=== PATIENT | male | born 1940 | race Caucasian/White ===

== ENCOUNTER 2023-03-05 14:17 | Outpatient (CLI) | payer MEDICARE, SELFPAY ==
[2023-03-05 14:39] LABS: Basophils Percent Auto 0.6 % (0.2-1.2); Eosinophils Absolute Auto 0.3 K/mm3 (0-0.3); Eosinophils Percent Auto 4.2 % (0-4.4); Hematocrit 44.3 % (42.0-52.0); Hemoglobin 14.5 g/dL (14.0-18.0); Immature Granulocyte Absolute 0.02 K/mm3 (0.00-0.031); Immature Granulocyte Percent A 0.3 % (0-0.5); Lymphocytes Absolute Auto 2.01 K/mm3 (0.9-3.2); Lymphocytes Percent Auto 28.1 % (18.3-44.2); Mean Corpuscular HGB Conc 32.7 g/dl (32-36); Mean Corpuscular Hemoglobin 32.7 pg (26-34); Mean Corpuscular Volume 99.8 fl (80-100); Mean Platelet Volume 11.2 fl (7.4-10.4); Monocytes Percent Auto 13.5 % (2.6-8.5); Neutrophils Absolute Auto 3.8 K/mm3 (1.3-6.7); Neutrophils Percent Auto 53.3 % (45.5-73.1); Platelet Count Result 203 k/mm3 (150-375); Red Blood Count 4.44 M/mm3 (4.6-6.20); Red Cell Distribution Width 12.1 % (11.5-14.5); White Blood Count 7.2 K/mm3 (4.5-10.0)
[2023-03-05 16:34] LABS: Alanine Aminotransferase 32 U/L (6-50); Albumin Level 4.9 g/dL (3.5-5.1); Alkaline Phosphatase 100 U/L (38-126); Anion Gap 5 mmol/L (8-16); Aspartate Amino Transferase 39 U/L (17-59); Bilirubin,Total 0.4 mg/dL (0.2-1.3); Blood Urea Nitrogen 19 mg/dL (9-20); Calcium 9.3 mg/dL (8.4-10.2); Carbon Dioxide 32 mmol/L (22-30); Chloride 105 mmol/L (98-107); Estimated Glomerular Filt Rate > 60; Glucose 97 mg/dL (65-110); Potassium 4.9 mmol/L (3.4-5.0); Sodium 142 mmol/L (137-145)
[2023-03-05 17:17] LABS: Prostate Specific Antigen < 0.1 ng/mL (< OR = 4.0)
== END 2023-03-05 14:18 | disposition home or self-care (01) ==
PROVIDERS: PCP Family Medicine Sports Medicine; Visit Provider Internal Medicine Hematology & Oncology
DX: C79.51 Secondary malignant neoplasm of bone (principal)
CPT/HCPCS: 36415; 80053; 84153; 85025

== ENCOUNTER 2023-09-14 08:20 | Outpatient (CLI) | payer MEDICARE, SELFPAY ==
--- NOTE | ~2023-09-14 | CT_ITS ---
Clinical Indication: Metastatic cancer CT Scan of the Chest, Abdomen, and Pelvis with Contrast: Technique: Contiguous sections were acquired throughout the chest, abdomen, and pelvis after intraven ous administration of 100 cc of Omnipaque 350. Dose reduction technique was used on this scan by kristy almeida automated exposure control and iterative reconstruction technique. The dose-length product (DL P) was 792.82 mGy-cm. Findings: There is no evidence of any significant mediastinal, hilar or axillary lymphadenopathy. The mediastin al soft tissues appear normal. There is no evidence of pleural or pericardial effusion. 3 mm left basilar pulmonary nodule noted (axial image 96). No other pulmonary abnormality seen. The liver, spleen, pancreas, gallbladder, adrenals and kidneys are within normal limits. There are at herosclerotic calcifications of the aorta. No lymphadenopathy. No bowel obstruction or bowel wall thickening. There is no evidence to suggest acute appendicitis. Urinary bladder is unremarkable. No pelvic mass evident. No ascites. Impression: 3 mm left basilar pulmonary nodule, indeterminate. Consider follow-up CT in 6-12 months. No other significant findings. No other evidence to suggest active malignancy or metastatic disease. Reviewed, dictated and finalized at location . [facility] Impression: 3 mm left basilar pulmonary nodule, indeterminate. Consider follow-up CT in 6-1 2 months. No other significant findings. No other evidence to suggest active malignancy o r metastatic disease.
[2023-09-14 08:54] LABS: Estimated Glomerular Filt Rate > 60
== END 2023-09-14 08:21 | disposition home or self-care (01) ==
PROVIDERS: PCP Emergency Medicine; Visit Provider Internal Medicine Hematology & Oncology
DX: R91.1 Solitary pulmonary nodule (principal); C79.51 Secondary malignant neoplasm of bone
CPT/HCPCS: 71260; 74177; Q9967

== ENCOUNTER 2024-10-23 01:42 | Emergency (ER) | payer MEDICARE, SELFPAY ==
--- NOTE | ~2024-10-23 | CT_ITS ---
EXAMINATION: CT abdomen pelvis w con DATE: 10/23/2024 03:39 INDICATION: Generalized abdominal pain. TECHNIQUE: Computed tomography (CT) of the abdomen and pelvis was performed with 100 mL Omnipaque 350 intravenous contrast. Automated exposure control and iterative reconstruction technique were employe d. The dose-length product was 559.34 mGy-cm. COMPARISON: CT abdomen and pelvis 09/14/2023 FINDINGS: The visualized portions of the lung bases demonstrate mild atelectasis. There is mild bronc hiectasis bilaterally. No pleural effusion. The heart size is normal. There are coronary artery calci fications. No pericardial effusion. There is a small sliding hiatal hernia. The liver, spleen, pancre as, and adrenal glands are normal. There is a small wall calcification in the gallbladder. There are cysts in the kidneys measuring up to 10 mm on the left. There is a delayed right-sided contrast nephr ogram. There are 1 mm and 2 mm stones in right kidney. There is a 2 mm stone in left kidney. There is mild right hydronephrosis and hydroureter. There is a 3 mm stone at right ureterovesicular junction. There is diverticulosis of the colon without evidence of diverticulitis. There are no dilated loops of bowel. The appendix is not visualized. There is no free intraperitoneal fluid. There are no pathol ogically enlarged lymph nodes. There is severe thoracolumbar spondylosis IMPRESSION: 1. 3 mm stone at right ureterovesicular junction with mild right hydronephrosis and hydroureter. 2. Small bilateral nonobstructing kidney stones. Reviewed, dictated and finalized at location A. E LABORATORY ANALYST
[2024-10-23 02:00] VITALS: BP 130/41; PULSE 53; RESP 15; TEMP 36.3; O2SAT 100
[2024-10-23 02:45] LABS: Basophils Percent Auto 0.3 % (0.2-1.2); Eosinophils Absolute Auto 0.3 K/mm3 (0-0.3); Hemoglobin 12.5 g/dL (14.0-18.0); Immature Granulocyte Absolute 0.03 K/mm3 (0.00-0.031); Immature Granulocyte Percent A 0.3 % (0-0.5); Lymphocytes Absolute Auto 2.63 K/mm3 (0.9-3.2); Lymphocytes Percent Auto 28.3 % (18.3-44.2); Mean Corpuscular HGB Conc 32.9 g/dl (32-36); Mean Corpuscular Hemoglobin 33.2 pg (26-34); Mean Corpuscular Volume 100.8 fl (80-100); Mean Platelet Volume 11.7 fl (7.4-10.4); Monocytes Absolute Auto 0.7 K/mm3 (0.1-0.6); Monocytes Percent Auto 7.8 % (2.6-8.5); Neutrophils Absolute Auto 5.6 K/mm3 (1.3-6.7); Neutrophils Percent Auto 60.3 % (45.5-73.1); Platelet Count Result 203 k/mm3 (150-375); Red Blood Count 3.77 M/mm3 (4.6-6.20); Red Cell Distribution Width 12.8 % (11.5-14.5); White Blood Count 9.3 K/mm3 (4.5-10.0)
--- NOTE | 2024-10-23 02:49 | ED.GENADULT ---
HPI - General Adult General Chief complaint: Abdominal Pain Stated complaint: abdominal pain Time Seen by Provider: 10/23/24 02:39 History of Present Illness HPI narrative: 84 old male presenting emergency department for evaluation for diffuse abdominal pain that started acutely at midnight. Patient states that he feels bloated and has had some nausea and vomiting. Patient did have a bowel movement and that did not improve his symptoms. Patient initially thought he was having some gas pain, he took Gas-X and states that his pain worsened. Related Data Home Medications ?Medication ?Instructions ?Recorded ?Confirmed ?Last Taken ?Type amlodipine 5 mg tablet 2.5 mg PO DAILY 03/23/23 09/20/24 Unknown History coenzyme Q10 200 mg capsule (Co 200 mg PO DAILY 03/23/23 09/20/24 Unknown History Q-10) rosuvastatin 5 mg tablet (Crestor) 5 mg PO DAILY 03/23/23 09/20/24 Unknown History Allergies Allergy/AdvReac Type Severity Reaction Status Date / Time codeine Allergy Nausea Verified 09/20/24 10:39 [facility] Social History Social History Smoking packs per day: 1.5 Smoking cigarettes per day: 30.0 Years smoked: 6 Smoking pack-years: 9.00 Smoking status: Former smoker Tobacco type: cigarettes Spiritual care concerns: No Exam Narrative: APPEARANCE: Well appearing, no pain, no distress, well-nourished. HEAD: normocephalic, atraumatic. EYES: PERRLA/EOMI, conjunctivae clear. NOSE: Normal no drainage EARS:TMS clear with good light reflex. THROAT: Pharynx clear, no exudate. NECK: Supple. No adenopathy, no masses. RESPIRATORY: Airway patent, respirations nonlabored. Clear to auscultation bilaterally, no rales, rhonchi, wheezing. CARDIOVASCULAR: Regular rate and rhythm without murmurs rubs or gallops. ABDOMINAL: Soft, nontender, nondistended, normal bowel sounds MUSCULOSKELETAL: Moves all extremities. Strength/ROM intact, No edema, No calf tenderness. NEURO: Alert. Cranial nerves II through XII intact. Grossly intact SKIN: Warm, dry. Normal Color Course Vital Signs Vital signs: Vital Signs Temperature 97.3 F L 10/23/24 02:00 Pulse Rate 53 L 10/23/24 02:00 Respiratory Rate 15 10/23/24 02:00 Blood Pressure 130/41 L 10/23/24 02:00 Pulse Oximetry 100 10/23/24 02:00 Oxygen Delivery Room Air 10/23/24 02:00 Temperature 97.3 F L 10/23/24 02:00 Pulse Rate 61 10/23/24 06:02 Respiratory Rate 15 10/23/24 06:02 Blood Pressure 100/50 L 10/23/24 06:02 Pulse Oximetry 98 10/23/24 06:02 Oxygen Delivery Room Air 10/23/24 02:00 Medical Decision Making Vital Signs Vital Signs: Vital Signs Temperature 97.3 F L 10/23/24 02:00 Pulse Rate 53 L 10/23/24 02:00 Respiratory Rate 15 10/23/24 02:00 Blood Pressure 130/41 L 10/23/24 02:00 Pulse Oximetry 100 10/23/24 02:00 Oxygen Delivery Room Air 10/23/24 02:00 Temperature 97.3 F L 10/23/24 02:00 Pulse Rate 61 10/23/24 06:02 Respiratory Rate 15 10/23/24 06:02 Blood Pressure 100/50 L 10/23/24 06:02 Pulse Oximetry 98 10/23/24 06:02 Oxygen Delivery Room Air 10/23/24 02:00 Lab Data Lab results reviewed: Yes I reviewed the patient's lab results. 10/23/24 02:40 10/23/24 02:40 Labs: Lab Results 10/23/24 10/23/24 Range/Units 02:40 04:35 WBC 9.3 (4.5-10.0) K/mm3 RBC 3.77 L (4.6-6.20) M/mm3 Hgb 12.5 L (14.0-18.0) g/dL Hct 38.0 L (42.0-52.0) % MCV 100.8 H (80-100) fl MCH 33.2 (26-34) pg MCHC 32.9 (32-36) g/dl RDW 12.8 (11.5-14.5) % Plt Count 203 (150-375) k/mm3 MPV 11.7 H (7.4-10.4) fl Immature Gran % (Auto) 0.3 (0-0.5) % Neut % (Auto) 60.3 (45.5-73.1) % Lymph % (Auto) 28.3 (18.3-44.2) % [place] % (Auto) 7.8 (2.6-8.5) % Eos % (Auto) 3.0 (0-4.4) % Baso % (Auto) 0.3 (0.2-1.2) % Lymph # (Auto) 2.63 (0.9-3.2) K/mm3 [place] # (Auto) 0.7 H (0.1-0.6) K/mm3 Eos # (Auto) 0.3 (0-0.3) K/mm3 Baso # (Auto) 0.0 (0.0-0.1) K/mm3 Abs Immat Gran (auto) 0.03 (0.00-0.031) K/mm3 Absolute Neuts (auto) 5.6 (1.3-6.7) K/mm3 Absolute Nucleated RBC 0.000 (0.0-0.012) K/mm3 Nucleated RBC % 0.0 (0.0-0.2) % Sodium 139 (137-145) mmol/L Potassium 3.9 (3.4-5.0) mmol/L Chloride 110 H (98-107) mmol/L Carbon Dioxide 25 (22-30) mmol/L Anion Gap 4 (4-12) mmol/L BUN 19 (9-20) mg/dL Creatinine 0.80 (0.7-1.3) mg/dL Estim Creat Clear Calc 54 ml/min Estimated GFR > 60 (59 - ) Glucose 139 H (65-110) mg/dL Calcium 9.3 (8.4-10.2) mg/dL Total Bilirubin 0.7 (0.2-1.3) mg/dL AST 31 (17-59) U/L ALT 19 (6-50) U/L Alkaline Phosphatase 91 (38-126) U/L Total Protein 7.0 (6.3-8.2) g/dL Albumin 4.4 (3.5-5.1) g/dL Lipase 231 (23-300) U/L Urine Color Yellow (Yellow) Urine Appearance Clear (Clear) Urine pH 5.5 (5.0-9.0) Ur Specific [place] > 1.045 H (1.001-1.035) Urine Protein Negative (Negative) mg/dL Urine Glucose (UA) Negative (Negative) mg/dL Urine Ketones Negative (Negative) mg/dL Ur Blood (Man) 2+ H (Negative) Urine Nitrate Negative (Negative) Urine Bilirubin Negative (Negative) Urine Urobilinogen 0.2 (<2.0) mg/dL Add Ur Microanalysis Reviewed Leukocyte Esterase Rfl Negative (Negative) FERNIE/UL Urine RBC 21-50 H (0-2) /hpf Urine WBC 0-5 (0-3) /hpf Ur Squamous Epith Cells None seen (Few) /hpf Urine Bacteria None seen /hpf Urine Casts 0-2 Imaging Data Radiologist's impression: CT abdomen pelvis with contrast Impression: There is a mild right hydronephrosis and hydroureter due to a 4 mm calculus at the UVJ. There are possible bilateral renal cysts. There is a small calcification noted in the gallbladder fundus which appears to be within the wall rather than a calculus. There is a possible thickening of the wall of the descending colon. This may be due to underdistention cannot exclude colitis. Hepatomegaly. Discharge Plan Discharge Clinical Impression: Calculi, ureter Patient Disposition: Home, Self-Care Condition: Stable Instructions: Antibiotic Form, Kidney Stones (ED), How to Strain Your Urine (ED) Additional Instructions: [place] for pain control. Zofran for nausea control. Flomax to help pass the stone. Strain your urine as instructed. Have close follow-up with Urology. If you have any worsening symptoms then please call or return to the emergency department. Patient Language: Azeri Prescriptions: New hydrocodone-acetaminophen 5-325 mg tablet 1 tablet PO Q12H PRN (Reason: pain) Qty: 14 0RF tamsulosin [Flomax] 0.4 mg capsule 0.4 mg PO DAILY Qty: 14 0RF ondansetron 4 mg tablet,disintegrating 4 mg PO Q8H PRN (Reason: nausea and vomiting) Qty: 20 0RF No Action amlodipine 5 mg Tablet 2.5 mg PO DAILY rosuvastatin [Crestor] 5 mg Tablet 5 mg PO DAILY coenzyme Q10 [Co Q-10] 200 mg Capsule 200 mg PO DAILY Follow-up/Referrals: Terence Whittaker MD [Physician] - Bud,Alpesh Altamirano MD [Primary Care Provider] -
[2024-10-23 02:58] LABS: Alanine Aminotransferase 19 U/L (6-50); Albumin Level 4.4 g/dL (3.5-5.1); Alkaline Phosphatase 91 U/L (38-126); Anion Gap 4 mmol/L (4-12); Aspartate Amino Transferase 31 U/L (17-59); Bilirubin,Total 0.7 mg/dL (0.2-1.3); Blood Urea Nitrogen 19 mg/dL (9-20); Calcium 9.3 mg/dL (8.4-10.2); Carbon Dioxide 25 mmol/L (22-30); Chloride 110 mmol/L (98-107); Estimated CRCL calculation 54 ml/min; Estimated Glomerular Filt Rate > 60; Glucose 139 mg/dL (65-110); Lipase 231 U/L (23-300); Potassium 3.9 mmol/L (3.4-5.0); Sodium 139 mmol/L (137-145)
[2024-10-23] MEDS: ONDANSETRON INJ 4 MG/2 ML VIAL IV PUSH (02:58)
[2024-10-23] MEDS: SODIUM CHLORIDE 0.9% IV 1,000 ML 999 ML IV CONT (02:59)
[2024-10-23] MEDS: HYDROmorphone HCL INJ (*CRX) 1 MG/ML SYR 0.5 MG IV PUSH (02:59)
--- NOTE | 2024-10-23 04:10 | PC.NURSE ---
Patient refusing straight catheterization at this time. Encouraged to use urinal at bedside.
[2024-10-23 05:24] LABS: Add Urine Microscopic? YES; Appearance Urine Clear (Clear); Bacteria Urine None Seen /hpf; Bilirubin Urine Negative (Negative); Blood Urine 2+ (Negative); Color Urine Yellow (Yellow); Glucose Urine UA Negative (Negative); Ketones Urine Negative (Negative); Leukocyte Esterase Ur Negative LEU/UL (Negative); Need Manual Microscopic Reviewed; Nitrate Urine Negative (Negative); Non Pathogenic Casts 0-2; Protein Urine Negative (Negative); RBC Urine 21-50 /hpf (0-2); Specific Grav Ur > 1.045 (1.001-1.035); Squamous Epithelial Cell Urine None Seen /hpf (Few); Urobilinogen Urine 0.2 mg/dL (<2.0); WBC Urine 0-5 /hpf (0-3); pH Urine 5.5 (5.0-9.0)
[2024-10-23 06:02] VITALS: BP 100/50; PULSE 61; RESP 15; O2SAT 98
[2024-10-23] MEDS: KETOROLAC 15 MG/ML VIAL (*BKC) IV PUSH (06:22)
[2024-10-23] MEDS: TAMSULOSIN HCL 0.4 MG CAPSULE PO (06:23)
[2024-10-23 06:41] VITALS: BP 106/62; PULSE 61; RESP 15; O2SAT 97
--- OUTSIDE RECORDS SUMMARY | 2024-10-30 02:25 | XMS_ITS | Patient Health Summary ---
Author Organization [facility] Address [address] [place] [address] Care Team Providers Care Farm Mechanic Apprentice Name Role Phone Unavailable Primary Care Provider Unavailabl e Note from [facility],non-owned Affiliates and Associated Physician Practices is amultiple site organization consisting of ambulatory clinics and hospital sitesin [place], [place], [place] and [place]. This disclosure is being madepursuant to the Care Everywhere program and may not contain all informatio navailable regarding this patient. Last updated 18.[facility] Allergies * Beta Adrenergic Blockers(Fatigue and weakness) * Nebivolol(Other) * Codeine(Nausea and/or Vomiting) * Shellfish Allergy Medications * Be aware that medications may not be up to date on this document. Alwaysverify current medications with the patient. * Coenzyme Q10 (COQ-10) 100 MG Take 100 mg by mouth * vitamin D3 (CHOLECALCIFEROL) 25 MCG (1000 UNITS) tablet Take 1,000 Units by mouth once daily * aspirin buffered (BUFFERIN LOW DOSE) 81 MG tablet Take 81 mg by mouth once daily * Leuprolide Acetate (LUPRON IJ) Quarterly * rosuvastatin (CRESTOR) 10 MG tablet Take 10 mg by mouth once daily * calcium citrate-vitamin D 200-250 MG-UNIT tablet Take 1 tablet by mouth once daily * denosumab (XGEVA) 120 MG/1.7ML injection Inject 120 mg subcutaneously Every 7 weeks * ranolazine ER 12hr (RANEXA) 500 MG tablet(Started 07/19/2020) Take 1 tablet by mouth every 12 hours 3 refills by 07/19/2021 * amLODIPine (NORVASC) 5 MG tablet(Started 10/04/2020) Take 1 tablet by mouth once daily 5 refills by 10/04/2021 Active Problems Problem Noted Date Diagnosed Date 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 Agatston coronary artery calcium score greater t palma 400 09/29/2017 Exertional angina 09/29/2017 Essential hypertension Hypercholesteremia Social History Tobacco Use Types Packs/Day Years Used Date Smoking Tobacco: Former Cigarettes Q uit: 11/02/1967 Smokeless Tobacco: Never Alcohol Use Standard Drinks/Week Comments No 0 (1 standard drink = 0.6 oz pur e alcohol) Sex and Gender Information Value Date Recorded Sex Assigned at Not on file Gender Identity Not on file Sexual Orientation Not on file Last Filed Vital Signs Vital Sign Reading Time Taken Comments Blood Pressure 118/76 07/19/2020 1:43 PM CDT Pulse 69 07/19/2020 1:43 PM CDT Temperature - - Respiratory Rate - - Oxygen Saturation 97% 07/19/2020 1:43 PM CDT Inhaled Oxygen Concentration - - Weight 69.9 kg (154 lb) 07/19/2020 1:43 PM CDT Height 175.3 cm (5' 9 ) 07/19/2020 1:43 PM CDT Body Mass Index 22.74 07/19/2020 1:43 PM CDT Procedures * DERMATOPATHOLOGY(Performed 01/06/2022) * CARDIAC CATH(Performed 07/13/2020) Performed for 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), Essential hypertension, Hypercholesteremia, Agatston coronary artery calcium 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, Abnormal stress echo * BASIC METABOLIC PANEL (CALCIUM TOTAL)(Performed 07/13/2020) Performed for 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) * CBC W/O DIFFERENTIAL(Performed 07/13/2020) Performed for 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) * CT CHEST W CONTRAST(Performed 06/19/2020) * EKG 12-LEAD(Performed 06/13/2020) Performed for Exertional angina, Agatston coronary artery calcium 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, Essentialhypertension, Hypercholesteremia * ECHOCARDIOGRAM STRESS(Performed 10/08/2017) Performed for Exertional angina, Agatston coronary artery calcium 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, Essentialhypertension, Hypercholesteremia * CAROTID DOPPLER(Performed 09/23/2017) * ECHOCARDIOGRAM STRESS(Performed 06/23/2011) * CARDIAC EVENT MONITOR(Performed 06/23/2011) Results * DERMATOPATHOLOGY (01/06/2022 12:00 AM RETAIL SALES DIRECTOR) Case Report Dermatopathology Report ? Case: [id number] ? Authorizing Provider: ??Ilan Loco MD ?Collected: ? 01/06/2022 12:00 AM ? Ordering Location: ? [facility] ?Received: ?01/08/2022 11:55 AM ? Pathologist: ? Lay Hinojosa MD ? Specimens: ?? A) - Skin, left lateral cheek ? B) - Skin, left post auricular ear ? 2 4:03 PM [facility] Final Diagnosis Specimen A. SKIN, left lateral cheek: SEBORRHEIC KERATOSIS, IRRITATED (L82.0) Specimen B. SKIN, left post auricular ear: SEBORRHEIC KERATOSIS, IRRITATED (L82.0) 2 4:03 PM [facility] Clinical History A: R/O neoplasm of uncertain behavior of skin, inflamed seborrheic keratosis. B: R/O Neoplasm of uncertain behavio of skin, inflamed seborrheic keratosis, Basal cell carcinoma-primary, actinic keratosis, Emanuel's disease of skin 2 4:03 PM [facility]MAT[facility] Gross Description Specimen A: Received is one formalin filled container labeled with the patient's name and designated left lateral cheek. The specimen consists of a shave biopsy measuring 9x7x2 mm. Jar 0. Specimen B: Received is one formalin filled container labeled with the patient's name and designated left post auricular ear. The specimen consists of a shave biopsy measuring 8x7x2 mm. Jar 0. 2 4:03 PM [facility] Microscopic Description Specimen A. SKIN, left lateral cheek: There is acanthosis consisting of fairly uniform squamous cells with eosinophilic cytoplasm and squamous eddies. Specimen B. SKIN, left post auricular ear: There is acanthosis consisting of fairly uniform squamous cells with eosinophilic cytoplasm and squamous eddies. 2 4:03 PM [facility] DERMAT[facility] Disclaimer An external and internal positive and negative controls are appropriate for the histochemical, immunohistochemical and immunofluorescence stain(s) in this case (if any), except where stated explicitly. The performance characteristics of the stain(s) cited in this report were developed and its performance characteristic determined by the Dermatopathology Laboratory at [facility], directed by Dr. Donny Hinojosa. These tests need not be, and therefore are not, approved by the [place] Food and Drug Administration. The tests are used for clinical purposes. Billing Codes Specimen Charges Stain Charges 95526 94050 1 1 2 4:03 PM [facility] DERMATOPATH[facility]Y [facility] Embedded Images 2 4:03 PM [facility]MAT[facility] Pathology/Cytology TISSUE SPECIMEN FROM SKIN / Unknown 01/06/2022 01/08/2022 11:55 AM RETAIL SALES DIRECTOR Miscellaneous samples (specimen) TISSUE SPECIMEN FROM SKIN / Unknown 01/06/2022 01/08/2022 11:55 AM RETAIL SALES DIRECTOR Ilan Loco MD LAB - PATHOLOGY/CY TOLOGY ORDERABLES DERMATOPATHOLOGY LABORATORY [facility] Department of Dermatology [address] [phone] * CARDIAC CATH (07/13/2020) Parag Lam MD CARDIAC SERVICES ORD ERABLES * CBC W/O DIFFERENTIAL (07/13/2020) Blood BLOOD SPECIMEN / Unknown Parag Lam MD LAB - HEMATOLOGY ORD ERABLES Performing Organization Address City/[facility]/ZIP Co de Phone Number OTHER LAB * BASIC METABOLIC PANEL (BMP) (07/13/2020) Blood BLOOD SPECIMEN / Unknown Parag Lam MD LAB - CHEMISTRY JACKY MALCOLM Performing Organization Address City/[facility]/ZIP Co de Phone Number OTHER LAB * CT CHEST W CONTRAST (06/19/2020) Anatomical Region Laterality Modality Chest Other Jordon Barakat MD CT ORDERABLES * EKG 12-LEAD (06/13/2020 3:34 PM CDT) Narrative Myra Gee - 06/13/2020 3:34 PM CDT Ora Dow ? 06/13/2020 ??3:35 PM See scan Procedure Note Ora Dow - 06/13/2020 3:34 PM CDT See scan Parag Lam MD ECG ORDERABLES * ECHOCARDIOGRAM STRESS (10/08/2017 1:13 PM RETAIL SALES DIRECTOR) Only the most recent of2 resultswithin the time period is included. Narrative Heike Chris RDMS - 10/08/2017 1:13 PM RETAIL SALES DIRECTOR Heike Chris RDMS ? 10/08/2017 ??1:13 PM See scan Parag Lam MD ECHO ORDERABLES * CAROTID DOPPLER (09/23/2017) Jordon Barakat MD GENERIC SURGICAL HISTORY * CARDIAC EVENT MONITOR (06/23/2011) Jordon Barakat MD CARDIAC SERVICES ORDERABLES
--- OUTSIDE RECORDS SUMMARY | 2024-10-30 02:25 | XMS_ITS | Encounter Summary ---
Author Organization [facility] Address [address] [place] [address] Care Team Providers Care Carbonator Name Role Phone Unavailable Primary Care Provider Unavailabl e Reason for Visit * Reason Onset Date Comments MEDICATION REFILL 07/19/2020 Encounter Details Date Type Department Care Team (Late st Contact Info) Description 07/19/2020 Refill [facility] - [address], [facility] [address] [place] [address] Parag Lam MD [address] [place] [address] [phone] MEDICATION REFILL Social History Tobacco Use Types Packs/Day Years Used Date Smoking Tobacco: Former Cigarettes Q uit: 11/02/1967 Smokeless Tobacco: Never Alcohol Use Standard Drinks/Week Comments No 0 (1 standard drink = 0.6 oz pur e alcohol) Sex and Gender Information Value Date Recorded Sex Assigned at Not on file Gender Identity Not on file Sexual Orientation Not on file documented as of this encounter Plan of Treatment Not on file documented as of this encounter Visit Diagnoses Not on filedocumented in this encounter
--- OUTSIDE RECORDS SUMMARY | 2024-10-30 02:25 | XMS_ITS | Encounter Summary ---
Author Organization [facility] Address [address] [place] [address] Care Team Providers Care Manager Transport Name Role Phone Unavailable Primary Care Provider Unavailabl e Reason for Visit * Reason Onset Date Comments General 06/02/2023 Encounter Details Date Type Department Care Team (Late st Contact Info) Description 06/02/2023 Telephone [facility] Cancer [facility] [address] [phone] Jonn Taylor MD [address] [address] General Social History Tobacco Use Types Packs/Day Years Used Date Smoking Tobacco: Former Cigarettes Q uit: 11/02/1967 Smokeless Tobacco: Never Alcohol Use Standard Drinks/Week Comments No 0 (1 standard drink = 0.6 oz pur e alcohol) Sex and Gender Information Value Date Recorded Sex Assigned at Not on file Gender Identity Not on file Sexual Orientation Not on file documented as of this encounter Miscellaneous Notes * Telephone Encounter - Lia Lopez - 06/02/2023 4:59 PM CDT [phone] Received records on this pt from current oncology provider. Called pt to discuss scheduling an apptand reason for changing providers. LM asking pt to return call CONNIE documented in this encounter Plan of Treatment Not on file documented as of this encounter Visit Diagnoses Not on filedocumented in this encounter
--- OUTSIDE RECORDS SUMMARY | 2024-10-30 02:25 | XMS_ITS | Encounter Summary ---
Author Organization [facility] Address [address] [facility] [place] [address] Care Team Providers Care Network Cable Installer Name Role Phone Unavailable Primary Care Provider Unavailabl e Reason for Visit * Reason Onset Date Comments MEDICATION REFILL 10/04/2020 Encounter Details Date Type Department Care Team (Late st Contact Info) Description 10/04/2020 Refill [facility] - [address], [address] [address] Parag Lam MD [address] [place] [address] [phone] MEDICATION REFILL Social History Tobacco Use Types [...]
--- OUTSIDE RECORDS SUMMARY | 2024-10-30 02:25 | XMS_ITS | Encounter Summary ---
Author Organization [facility] Address [address] [facility] [place] [address] Care Team Providers Care Geriatric Care Manager Name Role Phone Unavailable Primary Care Provider Unavailabl e Encounter Details Date Type Department Care Team (Late st Contact Info) Description 08/02/2020 Orders Only [facility] - [address], [facility] [address] [place] [address] Parag Lam MD [address] [place] [address] [place] [phone] Coronary artery disease of [place] artery of [place] heart with stable angina pectoris (HCC); Essential hypertension; Hypercholesteremia; Agatston coronary artery calcium 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; Abnormal stress echo Social History Tobacco Use Types Packs/Day Years [...] on file documented as of this encounter Procedures Procedure Name Priority Date/Time Associated Diagnosis Comments CARDIAC CATH Routine 07/13/2020 Coronary artery disease of [place] artery of [place] heart with stable angina pectoris (HCC) Essential hypertension Hypercholesteremia Agatston coronary artery calcium 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 Abnormal stress echo documented in this encounter Results * CARDIAC CATH (07/13/2020) Parag Lam MD CARDIAC SERVICES ORD ERABLES documented in this encounter Visit Diagnoses Diagnosis Coronary artery disease of [place] artery of [place] heart with stable angina pectoris (HCC) Essential hypertension Hypercholesteremia Pure hypercholesterolemia Agatston coronary artery calcium 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 Nonspecific (abnormal) findings on radiological and other examination of other intrathoracic organs Abnormal stress echo Other nonspecific abnormal cardiovascular system function study documented in this encounter
--- OUTSIDE RECORDS SUMMARY | 2024-10-30 02:25 | XMS_ITS | Referral Summary ---
Author Organization [facility] Address [address] [place] [address] Care Team Providers Care Senior Enlisted Advisor Name Role Phone Unavailable Primary Care Provider Unavailabl e Source Comments [facility],non-owned Affiliates and Associated Physician Practices is amultiple site organization consisting of ambulatory clinics and hospital sitesin [place], [place], [place] and [place]. This disclosure is being madepursuant to the Care Everywhere program and may not contain all information available regarding this patient. Last updated 18.[facility] Allergies Active Allergy Reactions Criticality Noted Date Comments Beta Adrenergic Blockers 09/29/2017 Fatigue and weakness Nebivolol Other Bradycardia Codeine Nausea and/or Vomiting Shellfish Allergy Medications * Be aware that medications may not be up to date on this document. Alwaysverify current medications with the patient. Medication Sig Dispensed Refills Start Date End Date Status Coenzyme Q10 (COQ-10) 100 MG Take 100 mg by mouth Active vitamin D3 (CHOLECALCIFEROL) 25 MCG (1000 UNITS) tablet Take 1,000 Units by mouth once daily Active aspirin buffered (BUFFERIN LOW DOSE) 81 MG tablet Take 81 mg by mouth once daily Active Leuprolide Acetate (LUPRON IJ) Quarterly Active rosuvastatin (CRESTOR) 10 MG tablet Take 10 mg by mouth once daily Active calcium citrate-vitamin D 200-250 MG-UNIT tablet Take 1 tablet by mouth once daily Active denosumab (XGEVA) 120 MG/1.7ML injection Inject 120 mg subcutaneously Every 7 weeks Active ranolazine ER 12hr (RANEXA) 500 MG tablet Take 1 tablet by mouth every 12 hours 180 tablet 3 07/19/2020 Active amLODIPine (NORVASC) 5 MG tablet Take 1 tablet by mouth once daily 30 tablet 5 10/04/2020 Active Active Problems Problem Noted Date Diagnosed Date 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 Dense coronary calcification in all coronary distributions (Dr. Lam review). Agatston coronary artery calcium score greater t palma 400 09/29/2017 Exertional angina 09/29/2017 Overview (07/16/2020): Stress Echo 10/2017 - EF 60%. Walked 10:25 min (200% predicted METs). Clinically/EKG negative. Echo with possible small area of anteroapical ischemia on image review, but officially read as normal. Low risk stress echo. Cath 07/2020 - Mild to moderate plaquing 30-40% max. Longer, mild to mod lesion (30-40%) in dominant RCA with normal FFR. EF normal. LVEDP 13 mmhg Essential hypertension Overview (09/10/2017): Stress Echo 09/2016 - EF nl at rest. Walked 9:16 min on TM. EKG/echo nl. Nl BP response. Event monitor (10 d) 07/2011 - Baseline sinus w/o ectopy, no other transmissions. Stress Echo 06/2011 - EF normal at rest. Walked 7 min. EKG/echo nl. + HTN response. Hypercholesteremia Social History Tobacco Use Types Packs/Day [...] Mass Index 22.74 07/19/2020 1:43 PM CDT Plan of Treatment Not on file Ilan Mccauley Personal/Family Self [address] [place] [address]
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
--- OUTSIDE RECORDS SUMMARY | 2024-10-30 02:25 | XMS_ITS | Clinical Summary ---
Author Organization [facility] [employer] Address [address] [place] [address] Care Team Providers Care Data Architect Name Role Phone Unavailable Primary Care Provider Unavailabl e Source Comments [facility] [employer],non-owned Affiliates and Associated Physician Practices is amultiple site organization consisting of ambulatory clinics and hospital sitesin [place], [place], [place] and [place]. This disclosure is being madepursuant to the Care Everywhere program and may not contain all information available regarding this patient. Last updated 18.[facility] [employer] [facility] Allergies Active Allergy Reactions Criticality Noted Date [...] min. EKG/echo nl. + HTN response. Hypercholesteremia Family History Medical History Relation Name Comments CAD (Coronary Artery Disease) Maternal Grandmother CVA Mother Hypertension Mother Relation Name Status Comments Father Maternal Grandfather Maternal Grandmother Mother Paternal Grandfather Paternal Grandmother Social History Tobacco Use Types Packs/Day Years [...] 07/19/2020 1:43 PM CDT Plan of Treatment Health Maintenance Due Date Last Done Comments DTAP/TDAP/TD VACCINES (1 - Tdap) 1959 ZOSTER VACCINE (1 of 2) 1990 PNEUMOCOCCAL VACCINE 65+ (1 of 1 - PCV) 2005 Respiratory Syncytial Virus (RSV) Vaccine Pt: or over 60 yrs (1 - 1-dose 75+ series) 2015 DEPRESSION SCREENING 11/02/2023 MEDICARE AWV ? CALENDAR YEAR 2023 COVID-19 VACCINE ( season) 2024 INFLUENZA VACCINE (#1) 2024 5, 06/27/2013, 07/18/2009, Additional history exists HEPATITIS B VACCINE Aged Out No longe r eligible based on patient's age to complete this topic HIB VACCINE Aged Out No longer eligi ble based on patient's age to complete this topic HPV VACCINE Aged Out No longer eligi ble based on patient's age to complete this topic MENINGOCOCCAL VACCINE Aged Out No ammy taylor eligible based on patient's age to complete this topic
--- OUTSIDE RECORDS SUMMARY | 2024-10-30 02:25 | XMS_ITS | Encounter Summary ---
Author Organization [facility] Address [address] [place] [address] Care Team Providers Care Television Inspector Name Role Phone Unavailable Primary Care Provider Unavailabl e Encounter Details Date Type Department Care Team (Late st Contact Info) Description 01/08/2022 Lab Requisition [facility] DermPath Lab [address] [place] [id number] [place] [id number] [address] [place] [id number] Social History Tobacco Use Types Packs/Day Years [...] Procedure Name Priority Date/Time Associated Diagnosis Comments DERMATOPATHOLOGY Routine 01/06/2022 12:0 0 AM LIFT SUPERVISOR documented in this encounter Results * DERMATOPATHOLOGY (01/06/2022 12:00 AM LIFT SUPERVISOR) Case Report Dermatopathology Report ? Case: [id number] ? Authorizing Provider: ??Ilan Loco MD ?Collected: ? 01/06/2022 12:00 AM ? Ordering Location: ? [facility] Derm[facility] Lab ?Received: ?01/08/2022 11:55 AM ? Pathologist: ? Lay Hinojosa MD ? Specimens: ?? A) - Skin, left lateral cheek ? B) - Skin, left post auricular ear ? 2 4:03 PM [facility]ER[facility] Final Diagnosis Specimen A. SKIN, left lateral cheek: SEBORRHEIC KERATOSIS, IRRITATED (L82.0) Specimen B. SKIN, left post auricular ear: SEBORRHEIC KERATOSIS, IRRITATED (L82.0) 2 4:03 PM [facility] Clinical History A: R/O neoplasm of uncertain behavior of skin, inflamed seborrheic keratosis. B: R/O Neoplasm of uncertain behavio of skin, inflamed seborrheic keratosis, Basal cell carcinoma-primary, actinic keratosis, Emanuel's disease of skin 2 4:03 PM [facility]ERMATOP[facility] Gross Description Specimen A: Received [...] 8x7x2 mm. Jar 0. 2 4:03 PM [facility] DERMATOPATH[facility]Y [facility] Microscopic Description Specimen A. SKIN, left lateral cheek: There is acanthosis consisting of fairly uniform squamous cells with eosinophilic cytoplasm and squamous eddies. Specimen B. SKIN, left post auricular ear: There is acanthosis consisting of fairly uniform squamous cells with eosinophilic cytoplasm and squamous eddies. 2 4:03 PM [facility] DERMATOPATH[facility]Y [facility]ORAT[facility] Disclaimer An external and internal positive and negative controls are appropriate for the histochemical, immunohistochemical and immunofluorescence stain(s) in this case (if any), except where stated explicitly. The performance characteristics of the stain(s) cited in this report were developed and its performance characteristic determined by the Dermatopathology Laboratory at [facility], directed by Dr. Donny Hinojosa. These tests need not be, and therefore are not, approved by the [place] Food and Drug Administration. The tests are used for clinical purposes. Billing Codes Specimen Charges Stain Charges 90839 09325 1 1 2 4:03 PM LIFT SUPERVISOR DERMATOPATHOLOGY LABORATORY Embedded Images 2 4:03 PM [facility] DERMAT[facility] Pathology/Cytology TISSUE SPECIMEN FROM SKIN / Unknown 01/06/2022 01/08/2022 11:55 AM LIFT SUPERVISOR Miscellaneous samples (specimen) TISSUE SPECIMEN FROM SKIN / Unknown 01/06/2022 01/08/2022 11:55 AM LIFT SUPERVISOR Ilan Loco MD LAB - PATHOLOGY/CY TOLOGY ORDERABLES DERMATOPATHOLOGY LABORATORY [facility] - Department of Dermatology [address] [phone] documented in this encounter Visit Diagnoses Not on filedocumented in this encounter
--- OUTSIDE RECORDS SUMMARY | 2024-10-30 02:25 | XMS_ITS | Encounter Summary ---
Author Organization [facility] Address [address] [place] [address] Care Team Providers Care Case Supervisor Name Role Phone Unavailable Primary Care Provider Unavailabl e Reason for Visit * Reason Onset Date Comments Blood Pressure 09/18/2020 Ringing in Ear 09/18/2020 Encounter Details Date Type Department Care Team (Late st Contact Info) Description 09/18/2020 Telephone [facility] - [address], [facility] [address] [place] [address] Parag Lam MD [address] [place] [phone] Blood Pressure; Ringing in Ear Social History Tobacco Use Types Packs/Day Years [...] encounter Miscellaneous Notes * Telephone Encounter - Jeannie Huntley - 09/18/2020 11:46 AM CST Spoke with patient who agrees to d/c Ranexa for 3 weeks and call with update on symptoms. GER SUPPLY CHAIN * Telephone Encounter - Parag Lam MD - 09/18/2020 11:00 AM CST It is possible that both the ranolazine and/or the amlodipine could contribute to lightheadedness and BP drops with upright posture. In my experience, the ranolazine is slightly more likely to do that. I recommend he stop the ranolazine for 3 weeks to see if that helps. I think it unlikely that much chest discomfort would develop off that med. If symptoms worse, see a doctor. GER SUPPLY CHAIN * Telephone Encounter - Jeannie Huntley - 09/18/2020 10:20 AM CST Patient called to report he is experiencing more severe drops in BP and lightheadedness than previously. He does not fall over, but has to steady himself against a wall or something. It happens 1-2 times per day and always when he is getting up. He further reports ringing in his ears and denies a headache, but has head discomfort like a hangover, but he does not drink alcohol. He wonders if this could be due to his meds. GER SUPPLY CHAIN documented in this encounter Plan of Treatment Not on file documented as of this encounter Visit Diagnoses Not on filedocumented in this encounter
--- OUTSIDE RECORDS SUMMARY | 2024-10-30 02:26 | XMS_ITS | Encounter Summary ---
Author Organization [facility] Address [address] [place] [address] Care Team Providers Care Cook Jelly Name Role Phone Ilan Whitley DO Primary Care Provider Reason for Visit * Reason Onset Date Comments Stress Echo 10/08/2017 Encounter Details Date Type Department Care Team (Late st Contact Info) Description 10/08/[address] [address] Parag Lam MD [address] [place] [phone] Stress Echo Social History Tobacco Use Types Packs/Day Years Used Date Smoking Tobacco: Former Cigarettes Q uit: 11/02/1967 Alcohol Use Standard Drinks/Week Comments No 0 (1 standard drink = 0.6 oz pur e alcohol) Sex and Gender Information Value Date Recorded Sex Assigned at Not on file Gender Identity Not on file Sexual Orientation Not on file documented as of this encounter Miscellaneous Notes * Telephone Encounter - Parag Lam MD - 10/08/2017 4:47 PM CST Reviewed the details of his normal stress echo with great exercise tolerance. He states chest bothers him very little. He believes the Isosorbide has helped a lot. He is delighted . F/u in 10 weeks at his preference. 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
--- OUTSIDE RECORDS SUMMARY | 2024-10-30 02:26 | XMS_ITS | Encounter Summary ---
Author Organization [facility] Address [address] [place] [address] Care Team Providers Care Title Searcher Name Role Phone Ilan Whitley DO Primary Care Provider Reason for Referral * Cardiac (Routine) - Closed Specialty Diagnoses / Procedures Referred By Contac t Referred To Contact Cardiology Diagnoses Exertional angina (HCC) Agatston coronary artery calcium 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 Essential hypertension Hypercholesteremia Procedures ECHOCARDIOGRAM STRESS Parag Lam MD [address] [place] [id number] Referral ID Status Reason Start Date Expiration Date Visits Re quested Visits Authorized [id number] Closed 09/29/2017 03/28/2018 1 1 ECHNICAL OPERATING ENGINEER Reason for Visit * Reason Comments Follow-up Encounter Details Date Type Department Care Team (Late st Contact Info) Description 09/29/2017 10:00 AM GEOTECHNICAL OPERATING ENGINEER Office Visit [address] [phone] Parag Lam MD [address] [place] [id number] Exertional angina (Primary Dx); Agatston coronary artery calcium 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; Essential hypertension; Hypercholesteremia Social History Tobacco Use Types Packs/Day [...] Sign Reading Time Taken Comments Blood Pressure 128/71 09/29/2017 10:12 AM GEOTECHNICAL OPERATING ENGINEER Pulse 75 09/29/2017 10:12 AM GEOTECHNICAL OPERATING ENGINEER Temperature - - Respiratory Rate - - Oxygen Saturation 97% 09/29/2017 10:12 AM GEOTECHNICAL OPERATING ENGINEER Inhaled Oxygen Concentration - - Weight 73 kg (161 lb) 09/29/2017 10:12 AM GEOTECHNICAL OPERATING ENGINEER Height 165.1 cm (5' 5 ) 09/29/2017 10:12 AM GEOTECHNICAL OPERATING ENGINEER Body Mass Index 26.79 09/29/2017 10:12 AM GEOTECHNICAL OPERATING ENGINEER documented in this encounter Progress Notes * Jeannie Huntley - 09/29/2017 10:01 AM CST Patient requested appt to discuss treatment plan Weight down 1 lb less since OV Less discomfort since starting nitro Had d/c Irbesartan, but yesterday BP was 140/80 and he restarted it ECHNICAL OPERATING ENGINEER * Parag Lam MD - 09/29/2017 9:47 AM CST Images from the original note were not included. Chief Complaint Patient presents with ??? Follow-up History of Present Illness Ilan Mccauley is a 77 y.o. male, who returns to discuss plans, in setting of exertional angina, high coronary calcium score, systemic HTN and hypercholesterolemia. Patient presented for a second opinion consultation 2 weeks ago, and we discussed options below in plan to further assess his probable worsening CAD. We agreed on a stress test to establish severity and prognostic risk. When he presented for the nuclear cardiac stress test last week, he declined and cancelled the test. He returns today to discuss again. Weight down 1 lb less since initial OV Much less chest discomfort since starting Isosorbide. 90% of discomfort is gone. Has been able to do more exercise. Walked 3 miles with just slight chest discomfort. Had d/c Irbesartan, but yesterday BP was 140/80 and he restarted it Carotid US showed mild bilateral plaquing (i.e. no suggestion of plaque > 50%). Comprehensive system review is otherwise negative for constitutional, HENT, eyes, neck, musculoskeletal, derm, neuro, cardiovascular, pulmonary, extremities, vascular, endocrine, GI, . Patient Active Problem List Diagnosis Date Noted ??? 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 Exertional angina 09/29/2017 Priority: Not Prioritized ??? Essential hypertension Priority: Not Prioritized Stress [...] history of malignant neoplasm of prostate ??? Raynaud's syndrome without gangrene ??? Renal stone ??? Solitary pulmonary nodule Past Surgical History: Procedure Laterality Date ??? Appendectomy 1953 ??? Prostatectomy 2011 Laparoscopic Current Outpatient Prescriptions Medication Sig Dispense Refill ??? irbesartan (AVAPRO) 150 MG tablet Take 150 mg by mouth once daily ??? diazePAM (VALIUM) 10 MG tablet Take 10 mg by mouth as needed ??? isosorbide mononitrate CR 24hr (IMDUR) 30 MG tablet Take 1 tablet by mouth once daily 30 tablet5 ??? Aspirin (ECOTRIN LOW STRENGTH) 81 MG Take 1 tablet by mouth Two times a week No current facility-administered medications for this visit. Allergies Allergen Reactions ??? Bystolic [Nebivolol] Other Bradycardia ??? Codeine Nausea and/or Vomiting ??? Beta Blockers [Beta Adrenergic Blockers] Fatigue and weakness ??? Shellfish Allergy Social History Social History ??? Marital status: Spouse name: N/A ??? Number of children: N/A ??? Years of education: N/A Occupational History ??? Not on file. Social History Main Topics ??? Smoking status: Former Smoker Quit date: 11/02/1967 ??? Smokeless tobacco: Not on file ??? Alcohol use No ??? Drug use: Not on file ??? Sexual activity: Not on file Other Topics Concern ??? Not on file Social History Narrative . 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 Has a daughter Conchis. Family History Problem Relation Age of Onset ??? Hypertension Mother ??? CVA Mother ??? Coronary Artery Disease Maternal Grandmother Exam BP 128/71 Pulse 75 Ht 1.651 m (5' 5 ) Wt 73 kg (161 lb) SpO2 97% BMI 26.79 kg/m2 Filed Wts: 09/29/17 1012 Weight: 73 kg (161 lb) General -- Pleasant, NAD Eyes -- sclerae anicteric HENT/Neck -- atraumatic head, JVP normal, carotids 2+ with L sided bruit CV -- regular, normal rate, no M/R/G Chest -- CTA bilaterally Abdomen -- ND, soft, NT, Ao not palpable, no HJR MSK/Extremities -- no cyanosis, clubbing or edema Vascular -- 2+ x bilateral radial & pedal pulses Neuro -- Alert, interactive, appropriate Derm -- no rash Assessment and Plan Exertional angina Agatston coronary artery calcium 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 Essential hypertension Hypercholesteremia 1. Angina improving but still present on Isosorbide. 2. I again advised options in detail: 1. Straight to cath to guide therapy, conservative or revascularization. 2. Continued empiric anti-anginal Rx alone. 3. Stress test for risk stratification to decide benefit of Rx vs need to proceed to cath 3. He elects #3, but specifies he prefers a stress echocardiogram over a nuclear stress. He is concerned about radiation. 4. HTN controlled. He really prefers to stay on Irbesartan for now, but open to changing to something like Amlodipine if need BP room for an additional anti- anginal med. 5. Continue Isosorbide. Counseled why and potential SEs. 6. I advised a statin. Counseled rationale and SEs. He is biased against these and is concerned about what he has read. But he is open to considering it down the road. 7. I again counseled potential future symptoms of concern, for which he should call/see us, or get urgent help. 8. Advised non-Rx methods of anti-anginal therapy - e.g. Diet, sleep, yoga, meditation, etc 9. Carotid US with mild plaquing for L sided soft bruit. 10. ASA has historically bothered his stomach, but is not lately. Continue ASA 81 mg thrice weekly. 11. Routine f/u in ~ 10 weeks. Parag Lam III, MD, [facility] [email or web address] ECHNICAL OPERATING ENGINEER documented in this encounter Plan of Treatment Not on file documented as of this encounter Results * ECHOCARDIOGRAM STRESS (10/08/2017 1:13 PM GEOTECHNICAL OPERATING ENGINEER) Narrative Heike Chris RDMS - 10/08/2017 1:13 PM GEOTECHNICAL OPERATING ENGINEER Heike Chris RDMS ? 10/08/2017 ??1:13 PM See scan Parag Lam MD ECHO ORDERABLES documented in this encounter Visit Diagnoses Diagnosis Exertional angina (HCC)- Primary Other and unspecified angina pectoris Agatston coronary artery calcium 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 Nonspecific (abnormal) findings on radiological and other examination of other intrathoracic organs Essential hypertension Hypercholesteremia Pure hypercholesterolemia Exertional angina (HCC)- Primary Other and unspecified angina pectoris Agatston coronary artery calcium 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 Nonspecific (abnormal) findings on radiological and other examination of other intrathoracic organs Essential hypertension Hypercholesteremia Pure hypercholesterolemia documented in this encounter Care Teams Title Searcher Relationship Specialty Start Date End Date Ilan Whitley DO [address] [place] [address] PCP - General Internal Medicine 08/12/17 06/12/20 documented as of this encounter
--- OUTSIDE RECORDS SUMMARY | 2024-10-30 02:26 | XMS_ITS | Encounter Summary ---
Author Organization [facility] Address [address] [facility] [place] [address] Care Team Providers Care Transportation Job Titles Name Role Phone Connieshanda Ilan Sousa Primary Care Provider Reason for Visit * Reason Onset Date Comments Blood Pressure 09/20/2018 Encounter Details Date Type Department Care Team (Late st Contact Info) Description 09/20/2018 Telephone [facility] - [address], [facility] [address] [place] [address] Parag Lam MD [address] [place] [phone] Blood Pressure Social History Tobacco Use Types Packs/Day Years [...] * Telephone Encounter - Jeannie Huntley - 09/21/2018 9:45 AM CST Spoke with patient who will stay off Irbesartan for now and increase Isosorbide to 60 mg daily. He was asked to check his BP less frequently (once every other day and when not feeling well). He will call with an update in 7-10 days. OMAN * Telephone Encounter - Parag Lam MD - 09/21/2018 8:56 AM CST I did not understand that. I thought he had just decreased the Irbesartan to 75 mg qday. I suggest he just change the Isosorbide to 60 mg for now. But we may ultimately need that Irbesartan 75 mg daily again. Have him keep us posted in a week or so. Rec he check BPs about once every other day, and anytime not feeling well. (Prefer not more often than that.) OMAN * Telephone Encounter - Jeannie Huntley - 09/21/2018 8:20 AM CST Spoke with patient who will increase Isosorbide to 60 mg daily starting today. He says he is pleased the Amlodipine has decreased his symptoms of Raynaud's. However, he has NOT been taking Irbesartan at all (he thought the Amlodipine replaced the Irbesartan). New orders? OMAN * Telephone Encounter - Parag Lam MD - 09/21/2018 8:05 AM CST I recommend he take an extra Irbesartan 75 mg today only (150 mg total today). I also recommend he increase Isosorbide to 60 mg every day, starting this AM. Call if not feeling better. OMAN * Telephone Encounter - Jeannie Huntley - 09/20/2018 4:43 PM CST Patient called concerned that his BP continues to rise despite the increase in Amlodipine to 10 mg.His BP now is 155/80. He feels heavy and is getting headaches. He wonders if he should have asked for the increase in Isosorbide instead. OMAN documented in this encounter Plan of Treatment Not on file documented as of this encounter Visit Diagnoses Not on filedocumented in this encounter Care Teams Transportation Job Titles Relationship Specialty Start Date End Date Ilan Whitley DO [address] [place] [address] PCP - General Internal Medicine 08/12/17 06/12/20 documented as of this encounter
--- OUTSIDE RECORDS SUMMARY | 2024-10-30 02:26 | XMS_ITS | Encounter Summary ---
Author Organization [facility] Address [address] [place] [address] Care Team Providers Care Mender Hand Name Role Phone Ilan Whitley DO Primary Care Provider Reason for Referral * Radiology Services (Routine) - Closed Specialty Diagnoses / Procedures Referred By Contac t Referred To Contact Cardiology Diagnoses Exertional angina (HCC) Agatston coronary artery calcium 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 Essential hypertension Bruit of left carotid artery Hypercholesteremia Procedures NM MYOCARD PERFUSION SPECT STRESS AND REST Parag Lam MD [address] [place] [id number] [address] [phone] Referral ID Status Reason Start Date Expiration Date Visits Re quested Visits Authorized [id number] Closed 09/10/2017 03/09/2018 1 1 GER SCOOP OPERATOR Reason for Visit * Reason Comments Establish Care Encounter Details Date Type Department Care Team (Late st Contact Info) Description 09/10/2017 1:00 PM PLUNGER SCOOP OPERATOR Office Visit [address] [phone] Parag Lam MD [address] [place] [phone] Exertional angina (Primary Dx); Agatston coronary artery calcium 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; Essential hypertension; Bruit of left carotid artery; Hypercholesteremia Social History Tobacco Use Types Packs/Day [...] Sign Reading Time Taken Comments Blood Pressure 135/73 09/10/2017 12:46 PM PLUNGER SCOOP OPERATOR Pulse 77 09/10/2017 12:46 PM PLUNGER SCOOP OPERATOR Temperature - - Respiratory Rate - - Oxygen Saturation 97% 09/10/2017 12:46 PM PLUNGER SCOOP OPERATOR Inhaled Oxygen Concentration - - Weight 73.5 kg (162 lb) 09/10/2017 12:46 PM PLUNGER SCOOP OPERATOR Height 165.1 cm (5' 5 ) 09/10/2017 12:46 PM PLUNGER SCOOP OPERATOR Body Mass Index 26.96 09/10/2017 12:46 PM PLUNGER SCOOP OPERATOR documented in this encounter Progress Notes * Jeannie Huntley - 09/10/2017 12:39 PM CST 2nd opn for possible cath/stents GER SCOOP OPERATOR * Parag Lam MD - 09/10/2017 8:04 AM CST Images from the original note were not included. Primary Care Physician: Ilan Whitley DO Patient's Name: Ilan Mccauley Age: 77 y.o. Race: white Sex: male Chief Complaint Patient presents with ??? Establish Care History of Present Illness Very pleasant 77 yo male presents for a second opinion consultation regarding exertional chest painand recommendation for cath with possible revascularization. Last year pt and were able to walk 8-10 miles routinely. In last 6-8 months, has developed substernal chest discomfort, rated up to a 5-6 out of 10 if more active. If just was walking around house, would usually not feel it. If walked a flight of stairs or 2, would not expect to feel it. Review of Systems Anemia in 11/2015. Creatinine normal in 11/2015. Otherwise, constitutional, HENT/neck, eyes, endocrine, CV, pulmonary, GI, , neuro, derm, heme, MSK, extremities are all negative. Patient Active Problem List Diagnosis Date Noted ??? Essential hypertension Priority: Not Prioritized Stress Echo 09/2016 - EF nl at rest. Walked 9:16 min on TM. EKG/echo nl. Nl BP response. Event monitor (10 d) 07/2011 - Baseline sinus w/o ectopy, no other transmissions. Stress Echo 06/2011 - EF normal at rest. Walked 7 min. EKG/echo nl. + HTN response. ??? Hypercholesteremia Priority: Not Prioritized Current Outpatient Prescriptions Medication Sig Dispense Refill ??? Dunbar-3 Fatty Acids (OMEGA-3 FISH OIL PO) ??? irbesartan (AVAPRO) 150 MG tablet Take 150 mg by mouth once daily ??? diazePAM (VALIUM) 10 MG tablet Take 10 mg by mouth as needed No current facility-administered medications for this visit. Allergies Allergen Reactions ??? Bystolic [Nebivolol] Other Bradycardia ??? Codeine Nausea and/or Vomiting ??? Shellfish Allergy Past Medical History: Diagnosis Date ??? BPH (benign prostatic hyperplasia) ??? Calculus of kidney ??? ED (erectile dysfunction) ??? Essential hypertension ??? Hypercholesteremia ??? Iron deficiency anemia ??? Personal history of malignant neoplasm of prostate ??? Raynaud's syndrome without gangrene ??? Renal stone ??? Solitary pulmonary nodule Past Surgical History: Procedure Laterality Date ??? Appendectomy 1953 ??? Prostatectomy 2012 Laparoscopic Social History Social History ??? Marital status: [...] Coronary Artery Disease Maternal Grandmother Exam BP 135/73 Pulse 77 Ht 1.651 m (5' 5 ) Wt 73.5 kg (162 lb) SpO2 97% BMI 26.96 kg/m2 General -- Pleasant, NAD Eyes -- sclerae anicteric HENT/Neck -- atraumatic head, JVP normal, carotids 2+ with L sided bruit CV -- regular, normal rate, no M/R/G Chest -- CTA and non-tender bilaterally Abdomen -- ND, soft, NT, Ao not palpable, no HJR MSK/Extremities -- no cyanosis, clubbing or edema Vascular -- 2+ x bilateral radial & pedal pulses Neuro -- Alert, interactive, appropriate Derm -- no rash Data Lab & Data Highlights -- EKG from 07/2012 reviewed today: normal sinus rhythm, left axis deviation. Assessment and Plan Exertional angina Agatston coronary artery calcium 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 Essential hypertension Hypercholesteremia 1. Patient has classical exertional angina progressing steadily over the last 6- 12 months. 2. I advised options in detail: 1. Straight to cath to guide therapy, conservative or revascularization. 2. Empiric anti-anginal Rx alone - not my preference for him. 3. Stress test for risk stratification to decide benefit of Rx vs need to proceed to cath 3. He elects #3 above with stress testing first. 4. HTN controlled. He really prefers to stay on Irbesartan. 5. I suggest he try Isosorbide. Counseled why and potential SEs. 6. I advised a statin. Counseled rationale and SEs. He is biased against these and is concerned about what he has read. But he is open to considering it down the road. 7. I counseled potential future symptoms of concern, for which he should call/see us, or get urgenthelp. 8. Carotid US for L sided soft bruit. 9. ASA has historically bothered his stomach. Will start by trying ASA 81 mg twice weekly. 10. Had a long discussion and answered his many good questions to the best of my ability. 11. Routine f/u. Parag Lam III, MD, [facility] GER SCOOP OPERATOR documented in this encounter Plan of Treatment Scheduled Orders Name Type Priority Associated Diagnoses Orde r Schedule NM MYOCARD PERFUSION SPECT STRESS AND REST Cardiac Nuc Med Routine Exertional angina Agatston coronary artery calcium 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 Essential hypertension Bruit of left carotid artery Hypercholesteremia 1 Occurrences starting 09/10/2017 until 09/11/2018 documented as of this encounter Visit Diagnoses Diagnosis Exertional angina (HCC)- Primary Other and unspecified angina pectoris Agatston coronary artery calcium 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 Nonspecific (abnormal) findings on radiological and other examination of other intrathoracic organs Essential hypertension Bruit of left carotid artery Other symptoms involving cardiovascular system Hypercholesteremia Pure hypercholesterolemia documented in this encounter Care Teams Mender Hand Relationship Specialty Start Date End Date Ilan Whitley DO [address] [place] [id number] PCP - General Internal Medicine 08/12/17 06/12/20 documented as of this encounter
--- OUTSIDE RECORDS SUMMARY | 2024-10-30 02:26 | XMS_ITS | Encounter Summary ---
Author Organization [facility] Address [address] [facility] [place] [address] Care Team Providers Care Job Placement Specialist Name Role Phone Unavailable Primary Care Provider Unavailabl e Reason for Visit * Reason Onset Date Comments Medication Issue 07/04/2020 Encounter Details Date Type Department Care Team (Late st Contact Info) Description 07/04/2020 Telephone [facility] - [address], [facility] [address] [place] [address] Parag Lam MD [address] [place] [phone] Medication Issue Social History Tobacco Use Types Packs/Day Years [...] encounter Miscellaneous Notes * Telephone Encounter - Vicky Bloom - 07/04/2020 12:45 PM CDT I called and spoke with patient giving him Dr. Lam's message. * Telephone Encounter - Parag Lam MD - 07/04/2020 10:59 AM CDT Rec he decrease to 10 mg qday. If muscle aches not improved in a few weeks, decrease to Rosuvastatin 10 mg qMWF. Thanks. * Telephone Encounter - Vicky Bloom - 07/04/2020 10:18 AM CDT Patient called to inform Dr. Lam that Crestor prescribed is giving him leg cramps, and patient stopped taking it about 3 days sgo. Patient asks if he should continue to take this, or lower the dose? I can contact patient with your response. documented in this encounter Plan of Treatment Not on file documented as of this encounter Visit Diagnoses Not on filedocumented in this encounter
--- OUTSIDE RECORDS SUMMARY | 2024-10-30 02:26 | XMS_ITS | Encounter Summary ---
Author Organization [facility] Address [address] [place] [address] Care Team Providers Care General Foundry Worker Name Role Phone Connieshanda Ilan Sousa DO Primary Care Provider Reason for Visit * Reason Onset Date Comments Med Question 06/01/2020 Encounter Details Date Type Department Care Team (Late st Contact Info) Description 06/01/2020 Telephone [facility] - [address], [facility] [address] [place] [address] Parag Lam MD [address] [place] [phone] Med Question Social History Tobacco Use Types Packs/Day Years [...] * Telephone Encounter - Jeannie Huntley - 06/01/2020 12:[address] Lam just started this patient on Ranexa for chest pressure. The patient is asking how long hecould expect to wait until he notices improvement in his symptoms. Discussed: I told him several days to one week. He notes that he has had some initial decrease in his symptoms. He'll keep in touch. documented in this encounter Plan of Treatment Not on file documented as of this encounter Visit Diagnoses Not on filedocumented in this encounter Care Teams General Foundry Worker Relationship Specialty Start Date End Date Ilan Whitley DO [address] [address] PCP - General Internal Medicine 08/12/17 06/12/20 documented as of this encounter
--- OUTSIDE RECORDS SUMMARY | 2024-10-30 02:26 | XMS_ITS | Encounter Summary ---
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) Essential hypertension Hypercholesteremia Agatston coronary artery calcium 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 Abnormal stress echo Procedures CARDIAC CATH IA L HRT ARTERY/VENTRICLE ANGIO Parag Lam MD [address] [place] [phone] Tony Valdez MD [address] [place] [phone] Referral ID Status Reason Start Date Expiration Date Visits Re quested Visits Authorized [id number] Closed 07/10/2020 08/24/2020 1 1 Reason for Visit * Reason Onset Date Comments Patient Requested Call 06/29/2020 Encounter Details Date Type Department Care Team (Late st Contact Info) Description 06/29/2020 Telephone [facility] - [facility] [address] [place] [phone] Parag Lam MD [address] [place] [phone] Patient Requested Call Social History Tobacco Use Types Packs/Day Years [...] Telephone Encounter - Parag Lam MD - 06/29/2020 11:15 AM CDT Message says, Person you are trying to reach is not accepting calls at this time. We have discussed this multiple times. No prior cath. Abnormal prior stress test with classical angina and known dense coronary calcification on CT. We have treated this conservatively for years, knowing he may ultimately require a cath. He has slowly accelerating stable angina, now CCS class 2-3 despite optimal tolerated medical and lifestyle therapy. It is limiting his usual very active lifestyle. He is welcome to schedule cath at hospital with expectation of stenting, as we have offered and repeatedly detailed. July reasonable time frame. Cath at hospital ordered. Thanks. JACOB Salinas. * Telephone Encounter - Vicky Bloom - 06/29/2020 8:56 AM CDT Patient called to speak directly with Dr. Lam. Patient would like to discuss having stents placed with Dr. Lam, and is interested I having it done in July if possible. Patient would like more information on procedure, risks and benefits. 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) documented in this encounter Results * CARDIAC CATH (07/13/2020) Parag Lam MD CARDIAC SERVICES ORD ERABLES * BASIC METABOLIC PANEL (BMP) (07/13/2020) Blood BLOOD SPECIMEN / Unknown Parag Lam MD LAB - CHEMISTRY JACKY MALCOLM OTHER LAB * CBC W/O DIFFERENTIAL (07/13/2020) Blood BLOOD SPECIMEN / Unknown Parag Lam MD LAB - HEMATOLOGY [facility] Performing Organization Address City/[facility] Co de Phone Number OTHER LAB documented in this encounter Visit Diagnoses Diagnosis 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
--- OUTSIDE RECORDS SUMMARY | 2024-10-30 02:26 | XMS_ITS | Encounter Summary ---
Author Organization [facility] Health Address [address] [place] [address] Care Team Providers Care Branch Manager Trainee Name Role Phone Ilan Whitley DO Primary Care Provider Reason for Visit * Reason Comments Stress Echo * Cardiac (Routine) - Closed Specialty Diagnoses / Procedures Referred By Contac t Referred To Contact Cardiology Diagnoses Exertional angina (HCC) Agatston coronary artery calcium 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 Essential hypertension Hypercholesteremia Procedures ECHOCARDIOGRAM STRESS Parag Lam MD [address] [place] [phone] Referral ID Status Reason Start Date Expiration Date Visits Re quested Visits Authorized [id number] Closed 09/29/2017 03/28/2018 1 1 Encounter Details Date Type Department Care Team (Latest Contact Info) Description 10/08/2017 11:30 AM REACTOR TECHNICIAN Procedure visit [address] [phone] Exertional angina ; Agatston coronary artery calcium score greater than [...] on file documented as of this encounter Procedure Notes * Heike Chris RDMS - 10/08/2017 1:11 PM CSTAssociated Order(s): ECHOCARDIOGRAM STRESS See scan TOR TECHNICIAN documented in this encounter Plan of Treatment Not on file documented as of this encounter Procedures Procedure Name Priority Date/Time Associated Diagnosis Comments ECHOCARDIOGRAM STRESS Routine 10/08/2017 1:13 PM REACTOR TECHNICIAN Exertional angina Agatston coronary artery calcium 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 Essential hypertension Hypercholesteremia documented in this encounter Results * ECHOCARDIOGRAM STRESS (10/08/2017 1:13 PM REACTOR TECHNICIAN) Narrative Heike Chris RDMS - 10/08/2017 1:13 PM REACTOR TECHNICIAN Heike Chris RDMS ? 10/08/2017 ??1:13 PM See scan Parag Lam MD ECHO ORDERABLES documented in this encounter Visit Diagnoses Diagnosis Exertional angina (HCC)- Primary Other and unspecified angina pectoris Agatston coronary artery calcium 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 Nonspecific (abnormal) findings on radiological and other examination of other intrathoracic organs Essential hypertension Hypercholesteremia Pure hypercholesterolemia documented in this encounter Administered Medications Inactive Administered Medications - up to 3 most recent administrations Medication Order MAR Action Action Date Dose Rate Site perflutren Lipid Microsphere (DEFINITY) injection SUSP 1.5 mL 1.5 mL, Intravenous, INTRA-PROCEDURE ONCE, 1 dose, On [place] 10/08/17 at 1312, Shake well before using. $ Given 10/08/2017 1:12 PM REACTOR TECHNICIAN 1 mL documented in this encounter Care Teams Branch Manager Trainee Relationship Specialty Start Date End Date Ilan Whitley DO [address] [place] [phone] PCP - General Internal Medicine 08/12/17 06/12/20 documented as of this encounter
--- OUTSIDE RECORDS SUMMARY | 2024-10-30 02:26 | XMS_ITS | Encounter Summary ---
Author Organization [facility] Health Address [address] [facility] [place] [address] Care Team Providers Care Mushroom Grower Name Role Phone Gutierrez Ilan Sousa Primary Care Provider Reason for Visit * Reason Onset Date Comments Medication Management 08/19/2019 Encounter Details Date Type Department Care Team (Late st Contact Info) Description 08/19/2019 Telephone [facility] - [address], [facility] [address] [place] [address] Parag Lam MD [address] [place] [phone] Medication Management Social History Tobacco Use Types Packs/Day Years [...] * Telephone Encounter - Jeannie Huntley - 08/19/2019 2:50 PM CDT Left message for patient. * Telephone Encounter - Parag Lam MD - 08/19/2019 10:21 AM CDT Done. * Telephone Encounter - Jeannie Huntley - 08/19/2019 8:28 AM CDT Patient called stating his BP is a bit higher off Isosorbide. He would like to increase his Amlodipine to 5 mg daily. If appropriate, he would like a script sent to the [facility] in [place]. documented in this encounter Plan of Treatment Not on file documented as of this encounter Visit Diagnoses Not on filedocumented in this encounter Care Teams Mushroom Grower Relationship Specialty Start Date End Date Ilan Whitley DO [address] [place] [address] PCP - General Internal Medicine 08/12/17 06/12/20 documented as of this encounter
--- OUTSIDE RECORDS SUMMARY | 2024-10-30 02:26 | XMS_ITS | Encounter Summary ---
Author Organization [facility] Health Address [address] [place] [address] Care Team Providers Care Battery Plate Remover Name Role Phone Ilan Whitley DO Primary Care Provider Reason for Visit * Reason Onset Date Comments Stress Echo 05/30/2019 Encounter Details Date Type Department Care Team (Late st Contact Info) Description 05/30/2019 Telephone [facility] - [address], [facility] [address] [place] [address] Parag Lam MD [address] [place] [phone] Stress Echo Social History Tobacco Use [...] * Telephone Encounter - Jeannie Huntley - 05/30/2019 3:46 PM CDT Patient called back. He has a leg injury from running and prefers to hold off for now. He will call back when recovered. documented in this encounter Plan of Treatment Not on file documented as of this encounter Visit Diagnoses Not on filedocumented in this encounter Care Teams Battery Plate Remover Relationship Specialty Start Date End Date Ilan Whitley DO [address] [place] [address] PCP - General Internal Medicine 08/12/17 06/12/20 documented as of this encounter
--- OUTSIDE RECORDS SUMMARY | 2024-10-30 02:26 | XMS_ITS | Encounter Summary ---
Author Organization [facility] Address [address] [facility] [place] [address] Care Team Providers Care Kennel Hand Name Role Phone Ilan Whitley DO Primary Care Provider Reason for Visit * Reason Onset Date Comments Update 2018 Encounter Details Date Type Department Care Team (Late st Contact Info) Description 2018 Telephone [facility] - [address] [place] [address] Parag Lam MD [address] [place] [phone] Update Social History Tobacco Use Types Packs/Day Years [...] * Telephone Encounter - Jeannie Huntley - 2018 4:26 PM CDT Today is the patient's birthday and he was able to run a mile on the track in 10:24. He credits you with that and wishes you a happy birthday as well! documented in this encounter Plan of Treatment Not on file documented as of this encounter Visit Diagnoses Not on filedocumented in this encounter Care Teams Kennel Hand Relationship Specialty Start Date End Date Ilan Whitley DO [address] [place] [address] PCP - General Internal Medicine 08/12/17 06/12/20 documented as of this encounter
--- OUTSIDE RECORDS SUMMARY | 2024-10-30 02:26 | XMS_ITS | Encounter Summary ---
Author Organization [facility] Health Address [address] [facility] [place] [address] Care Team Providers Care Clinical Laboratory Aide Name Role Phone Ilan Whitley DO Primary Care Provider Reason for Visit * Reason Comments Refill Request Encounter Details Date Type Department Care Team (Late st Contact Info) Description 09/14/2019 Refill [facility] - [address], [address] [address] Parag Lam MD [address] [place] [address] Refill Request Social History Tobacco Use Types Packs/Day Years [...] on filedocumented in this encounter Care Teams Clinical Laboratory Aide Relationship Specialty Start Date End Date Ilan Whitley DO [address] [facility] [address] [place] [address] PCP - General Internal Medicine 08/12/17 06/12/20 documented as of this encounter
--- OUTSIDE RECORDS SUMMARY | 2024-10-30 02:26 | XMS_ITS | Encounter Summary ---
Author Organization [facility] Health Address [address] [facility] [place] [address] Care Team Providers Care Electron Gun Inspector Name Role Phone Ilan Whitley DO Primary Care Provider Reason for Visit * Reason Onset Date Comments MEDICATION REFILL 01/03/2019 Encounter Details Date Type Department Care Team (Late st Contact Info) Description 01/03/2019 Refill [facility] - [address], [address] [address] Parag Lam MD [address] [place] [phone] MEDICATION REFILL Social History Tobacco Use Types [...] on filedocumented in this encounter Care Teams Electron Gun Inspector Relationship Specialty Start Date End Date Ilan Whitley DO [address] [facility] [address] [place] [address] PCP - General Internal Medicine 08/12/17 06/12/20 documented as of this encounter
--- OUTSIDE RECORDS SUMMARY | 2024-10-30 02:26 | XMS_ITS | Encounter Summary ---
Author Organization [facility] Address [address] [facility] [place] [address] Care Team Providers Care Tests Superintendent Name Role Phone Maria Isabelbrianashanda Ilan Sousa Primary Care Provider Reason for Visit * Reason Onset Date Comments Medication Problem 05/04/2018 Encounter Details Date Type Department Care Team (Late st Contact Info) Description 05/04/2018 Telephone [facility] - [address], [facility] [address] [place] [address] Parag Lam MD [address] [place] [phone] Medication Problem Social History Tobacco Use Types Packs/Day Years [...] Telephone Encounter - Parag Lam MD - 05/04/2018 2:10 PM CDT Called pt. States overall, he is doing very well. Last mo or two, has had some discomfort in hand. Then started havnig what he describes as orthostatic lightheadedness/ hypotension . No known blood in stools or urine. No diarrhea. However, does admit urine is dark unless drinks a lot of water. Still able to run a mile on a track in 11 min. I propose cutting Isosorbide to 15 mg qday. Drink an extra glass or two of water per day. Call w/ persistent concerns, o/w f/u in 06/2018 as planned. * Telephone Encounter - Jeannie Huntley - 05/04/2018 12:05 PM CDT Per Slade - Pt states he is having side effects such as an increase in episodes of orthostatic hypotension possibly related to the Isosorbide and is wanting to speak with Dr. Lam. documented in this encounter Plan of Treatment Not on file documented as of this encounter Visit Diagnoses Not on filedocumented in this encounter Care Teams Tests Superintendent Relationship Specialty Start Date End Date Ilan Whitley DO [address] [place] [address] PCP - General Internal Medicine 08/12/17 06/12/20 documented as of this encounter
--- OUTSIDE RECORDS SUMMARY | 2024-10-30 02:26 | XMS_ITS | Encounter Summary ---
Author Organization [facility] Health Address [address] [place] [address] Care Team Providers Care Fastener Technologist Name Role Phone Unavailable Primary Care Provider Unavailabl e Reason for Visit * Reason Onset Date Comments Results 06/19/2020 CT Encounter Details Date Type Department Care Team (Late st Contact Info) Description 06/19/2020 Telephone [facility] - [address], [facility] [address] [place] [address] Parag Lam MD [address] [place] [phone] Results (CT) Social History Tobacco Use Types Packs/Day Years [...] Telephone Encounter - Parag Lam MD - 06/19/2020 6:08 PM CDT Called patient with information about mild ascending aorta enlargement and dense coronary calcifications seen on non-cardiac CT. No change to our plan. * Telephone Encounter - Jeannie Huntley - 06/19/2020 1:41 PM CDT Patient had a [facility] at [facility] (on your desk) that he would like you to review and call him. documented in this encounter Plan of Treatment Not on file documented as of this encounter Visit Diagnoses Not on filedocumented in this encounter
--- OUTSIDE RECORDS SUMMARY | 2024-10-30 02:26 | XMS_ITS | Encounter Summary ---
Author Organization [facility] Health Address [address] [place] [address] Care Team Providers Care Console Attendant Name Role Phone Gutierrez Ilan Sousa Primary Care Provider Reason for Visit * Reason Onset Date Comments Dizziness 06/17/2018 Encounter Details Date Type Department Care Team (Late st Contact Info) Description 06/17/2018 Telephone [facility] - [address], [facility] [address] [place] [address] Parag Lam MD [address] [place] [phone] Dizziness Social History Tobacco Use Types Packs/Day Years [...] * Telephone Encounter - Jeannie Huntley - 06/17/2018 9:12 AM CDT Spoke with patient who was reassured. He admits the lightheadedness is mild and certainly somethinghe is able to tolerate. He will see how he feels over the next couple of weeks. * Telephone Encounter - Parag Lam MD - 06/17/2018 8:41 AM CDT As discussed yesterday, lightheadedness is a common side effect with amlodipine and any BP med. I do not expect him to stay lightheaded - I.e. Likely this side effect will fade with time and as Irbesartan gets out of his system. If worse, fine to stop it. But I suggest he hang in there another week or two if able. * Telephone Encounter - Jeannie Huntley - 06/17/2018 8:10 AM CDT Per Slade - Pt states he started his Amlodipine today and about 2-3 hours after starting the medication, he began to feel lightheaded. He says he is not sure what to expect with this new med and would like clarification as to what side effects are normal or ok to experience. He can be reached at [phone] documented in this encounter Plan of Treatment Not on file documented as of this encounter Visit Diagnoses Not on filedocumented in this encounter Care Teams Console Attendant Relationship Specialty Start Date End Date Ilan Whitley DO [address] [place] [address] PCP - General Internal Medicine 08/12/17 06/12/20 documented as of this encounter
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
--- OUTSIDE RECORDS SUMMARY | 2024-10-30 02:26 | XMS_ITS | Encounter Summary ---
Author Organization [facility] Health Address [address] [facility] [place] [address] Care Team Providers Care Market Survey Representative Name Role Phone Ilan Whitley DO Primary Care Provider Reason for Visit * Reason Comments Refill Request Encounter Details Date Type Department Care Team (Late st Contact Info) Description 12/03/[address] [phone] Parag Lam MD [address] [place] [id number] Refill Request Social History Tobacco Use Types [...] on filedocumented in this encounter Care Teams Market Survey Representative Relationship Specialty Start Date End Date Ilan Whitley DO [address] [place] [address] [place] [phone] PCP - General Internal Medicine 08/12/17 06/12/20 documented as of this encounter
--- OUTSIDE RECORDS SUMMARY | 2024-10-30 02:26 | XMS_ITS | Encounter Summary ---
Author Organization [facility] Health Address [address] [place] [address] Care Team Providers Care Appeals Board Referee Name Role Phone Ilan Whitley DO Primary Care Provider Reason for Visit * Reason Onset Date Comments Stress Echo 05/30/2019 Encounter Details Date Type Department Care Team (Late st Contact Info) Description 05/30/2019 Telephone [facility] - [address], [facility] [address] [place] [address] Parag Lam MD [address] [place] [phone] Stress Echo Social History Tobacco Use [...] Telephone Encounter - Jeannie Huntley - 05/30/2019 3:43 PM CDT Left message for patient to call back to schedule stress echo. documented in this encounter Plan of Treatment Not on file documented as of this encounter Visit Diagnoses Not on filedocumented in this encounter Care Teams Appeals Board Referee Relationship Specialty Start Date End Date Ilan Whitley DO [address] [facility] [address] [place] [address] PCP - General Internal Medicine 08/12/17 06/12/20 documented as of this encounter
--- OUTSIDE RECORDS SUMMARY | 2024-10-30 02:26 | XMS_ITS | Encounter Summary ---
Author Organization [facility] Health Address [address] [place] [address] Care Team Providers Care Death Claim Examiner Name Role Phone Ilan Whitley DO Primary Care Provider Reason for Visit * Reason Onset Date Comments MEDICATION REFILL 07/08/2018 Encounter Details Date Type Department Care Team (Late st Contact Info) Description 07/08/2018 Refill [facility] - [address], [address] [address] Parag Lam MD [address] [place] [phone] MEDICATION REFILL Social History Tobacco Use Types [...] on filedocumented in this encounter Care Teams Death Claim Examiner Relationship Specialty Start Date End Date Ilan Whitley DO [address] [facility] [address] [place] [address] PCP - General Internal Medicine 08/12/17 06/12/20 documented as of this encounter
--- OUTSIDE RECORDS SUMMARY | 2024-10-30 02:26 | XMS_ITS | Encounter Summary ---
Author Organization [facility] Health Address [address] [place] [address] Care Team Providers Care Afterschool Name Role Phone Ilan Whitley Merry Primary Care Provider Reason for Visit * Reason Comments Follow-up Encounter Details Date Type Department Care Team (Late st Contact Info) Description 06/16/2018 10:00 AM CDT [facility] - [address], [facility] [address] [place] [address] Parag Lam MD [address] [place] [phone] Exertional angina (Primary Dx); Essential hypertension; Agatston coronary artery calcium 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; Orthostatic lightheadedness; Hypercholesteremia Social History Tobacco Use Types Packs/Day [...] Sign Reading Time Taken Comments Blood Pressure 122/69 06/16/2018 9:56 AM CDT Pulse 51 06/16/2018 9:56 AM CDT Temperature - - Respiratory Rate - - Oxygen Saturation 98% 06/16/2018 9:56 AM CDT Inhaled Oxygen Concentration - - Weight 72.1 kg (159 lb) 06/16/2018 9:56 AM CDT Height 165.1 cm (5' 5 ) 06/16/2018 9:56 AM CDT Body Mass Index 26.46 06/16/2018 9:56 AM CDT documented in this encounter Progress Notes * Parag Lam MD - 06/16/2018 10:10 AM CDT Images from the original note were not included. Chief Complaint Patient presents with ??? Follow-up History of Present Illness Ilan Mccauley is a 77 y.o. male, who follows routinely for exertional angina, high coronary calcium score, systemic HTN and hypercholesterolemia. Stress echo was surprisingly low risk and only mildly abnormal with very good exercise tolerance. Fortunately, patient had a rather robust initial response to empiric Isosorbide with decreased angina, improved energy, improved walking/hiking distance, etc. Weight down 1 lb since last OV Tolerating Imdur 30 mg. He called in 05/2018 reporting lightheadedness thought likely med related. We decreased Isosoribed to 15 mg qday. However, after a few weeks, started having more chest discomfort. He went back to taking 30 mg qday w/ no more chest pain. He then developed some headaches. But that improved when he cut his Irbesartan to 75 mg qday on hisown. Still feels he has orthostatic hypotension always rising from supine or sitting. Lasts 15 seconds. Makes him stop more often. No falls. Carotid US showed mild bilateral plaquing (i.e. no suggestion of plaque > 50%). He can do an 11 minute mile on a track without any chest discomfort. His HR is often 50s at rest, and accelerates to 130s w/ exercise. No JUNIOR. No vision change. Bowels stable. Comprehensive system review is otherwise negative for [...] Outpatient Prescriptions Medication Sig Dispense Refill ??? isosorbide mononitrate CR 24hr (IMDUR) 30 MG tablet TAKE 1 TABLET BY MOUTH EVERY DAY 30 tablet 5 ??? diazePAM (VALIUM) 5 MG tablet Take 5 mg by mouth 3 times daily as needed ??? aspirin (ASPIRIN) 81 MG tablet Take 81 mg by mouth Two times a week ? ? vitamin D3 (CHOLECACIFEROL) 5000 UNITS Take 5,000 Units by mouth every Thursday, Thursday & Thursday ? ? [place]-3 Fatty Acids (OMEGA 3 PO) Take 2,500 mg by mouth every Thursday, Thursday & Thursday ? ? Ubiquinol 100 MG Take 100 mg by mouth every Thursday, Thursday & Thursday ??? irbesartan (AVAPRO) 150 MG tablet Take 75 mg by mouth once daily No current facility-administered [...] Coronary Artery Disease Maternal Grandmother Exam BP 122/69 Pulse 51 Ht 1.651 m (5' 5 ) Wt 72.1 kg (159 lb) SpO2 98% BMI 26.46 kg/m2 Filed Wts: 06/16/18 0956 Weight: 72.1 kg (159 lb) Repeat 128/63 General -- Pleasant, NAD Eyes -- sclerae [...] no rash Assessment and Plan Exertional angina Essential hypertension Agatston coronary artery calcium 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 Orthostatic lightheadedness Hypercholesteremia 1. CAD thought stable. Angina essentially gone at 30 mg Isosorbide, but recurred at 15 mg Isosorbide. Stress echo mildly abnormal w/ good ex frannie. Continue 30 mg Isosorbide. 2. Have repeatedly counseled potential future heart sxs for which he should call/see it or get urgent help. 3. ASA has historically bothered his stomach, but is tolerating infrequent ASA. Continue ASA 81 mg 2x/week. 4. He has not preferred to take a statin med. 5. HTN controlled. I offered to have him stop Irbesartan to see if helps orthostatic lightheadedness. He feels very reluctant to do so due to psychological concern of BP elevating. 6. He will try holding Irbesartan 3-4 weeks to see how his lightheadedness and BP are affected. 7. Will try,at his preference, adding Amlodipine 2.5 mg qday, to possibly help w/ BP, angina and Raynaud's in the Winter. 8. Continue non-pharmacological anti-anginal therapy - e.g. Diet, sleep, yoga, exercise, meditation, other stress mgmt, etc) 9. Carotid US with mild plaquing for L sided soft bruit. 10. Routine f/u in 6 mo. Parag Lam III, MD, [email or web address] * Jeannie Huntley - 06/16/2018 9:53 AM CDT 6 mo f/u Weight down 1 lb since last OV Tolerating Imdur 30 mg No more chest discomfort Decreased Irbesartan to 75 mg on his own Lightheadedness a little worse than previously - believes medication related documented in this encounter Plan of Treatment Not on file documented as of this encounter Visit Diagnoses Diagnosis Exertional angina (HCC)- Primary Other and unspecified angina pectoris Essential hypertension Agatston coronary artery calcium 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 Nonspecific (abnormal) findings on radiological and other examination of other intrathoracic organs Orthostatic lightheadedness Orthostatic hypotension Hypercholesteremia Pure hypercholesterolemia documented in this encounter Care Teams Afterschool Relationship Specialty Start Date End Date Ilan Whitley DO [address] [place] [phone] PCP - General Internal Medicine 08/12/17 06/12/20 documented as of this encounter
--- OUTSIDE RECORDS SUMMARY | 2024-10-30 02:26 | XMS_ITS | Encounter Summary ---
Author Organization [facility] Health Address [address] [place] [address] Care Team Providers Care Sales Store Checker Name Role Phone Ilan Whitley DO Primary Care Provider Reason for Visit * Reason Onset Date Comments Erroneous encounter-disregard 12/24/2018 Encounter Details Date Type Department Care Team (Late st Contact Info) Description 12/24/2018 Telephone [facility] - [address], [facility] [address] [place] [address] Parag Lam MD [address] [place] [phone] Erroneous encounter-disregard Social History Tobacco Use Types Packs/Day Years [...] on filedocumented in this encounter Care Teams Sales Store Checker Relationship Specialty Start Date End Date Ilan Whitley DO [address] [facility] [address] [place] [address] PCP - General Internal Medicine 08/12/17 06/12/20 documented as of this encounter
--- OUTSIDE RECORDS SUMMARY | 2024-10-30 02:26 | XMS_ITS | Encounter Summary ---
Author Organization [facility] Health Address [address] [facility] [place] [address] Care Team Providers Care Social Media Job Titles Name Role Phone Ilan Whitley DO Primary Care Provider Reason for Visit * Reason Comments Refill Request Encounter Details Date Type Department Care Team (Late st Contact Info) Description 01/27/2020 Refill [facility] - [address], [address] [address] Parag Lam MD [address] [place] [address] Refill Request Social History Tobacco Use Types [...] on filedocumented in this encounter Care Teams Social Media Job Titles Relationship Specialty Start Date End Date Ilan Whitley DO [address] [facility] [address] [place] [address] PCP - General Internal Medicine 08/12/17 06/12/20 documented as of this encounter
--- OUTSIDE RECORDS SUMMARY | 2024-10-30 02:26 | XMS_ITS | Encounter Summary ---
Author Organization [facility] Health Address [address] [place] [address] Care Team Providers Care Data Analyst Report Writer Name Role Phone Ilan Whitley Merry Primary Care Provider Reason for Visit * Reason Comments Follow-up Encounter Details Date Type Department Care Team (Latest Contact Info) Description 10/05/2018 8:00 AM LATHE OPERATOR CONTACT LENS Office Visit [facility] - [address], [facility] [address] [place] [address] Parag Lam MD [address] [place] [phone] Essential hypertension (Primary Dx); Agatston coronary artery calcium 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; Hypercholesteremia; Abnormal stress echo Social History Tobacco Use [...] Sign Reading Time Taken Comments Blood Pressure 139/74 10/05/2018 8:01 AM LATHE OPERATOR CONTACT LENS Pulse 64 10/05/2018 8:01 AM LATHE OPERATOR CONTACT LENS Temperature - - Respiratory Rate - - Oxygen Saturation 98% 10/05/2018 8:01 AM LATHE OPERATOR CONTACT LENS Inhaled Oxygen Concentration - - Weight 71.2 kg (157 lb) 10/05/2018 8:01 AM LATHE OPERATOR CONTACT LENS Height 175.3 cm (5' 9 ) 10/05/2018 8:01 AM LATHE OPERATOR CONTACT LENS Body Mass Index 23.18 10/05/2018 8:01 AM LATHE OPERATOR CONTACT LENS documented in this encounter Progress Notes * Parag Lam MD - 10/05/2018 8:00 AM CST Images from the original note were not included. Chief Complaint Patient presents with ??? Follow-up History of Present Illness Ilan Mccauley is a 78 y.o. male, who follows routinely for exertional angina, high coronary calcium score, systemic HTN and hypercholesterolemia. Since our last visit, patient has updated us several times regarding intermittent lightheadedness and then rising BP, for which we have adjusted meds. Weight down 2 lbs since last OV Denies CP, lightheadedness, exertional dyspnea. Rare mild palpitations.. BP averages 127/70 for the last month on amlodipine 5 mg and isosorbide 60 mg qday. He thinks he felt better when stopped the irbesartan. Realizes he was gettting anxious about the BP readings themselves. He now feels he is doing a better job of staying in the present . Carotid US showed mild bilateral plaquing (i.e. no suggestion of plaque > 50%). 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 Also, walking 2-4 mi/day, which is farther than prior. No HTN; bowels and bladder stable. Comprehensive system review is otherwise negative [...] ??? Appendectomy 1953 ??? Prostatectomy 2012 Laparoscopic Current Outpatient Prescriptions Medication Sig Dispense Refill ??? amLODIPine (NORVASC) 5 MG tablet Take 1 tablet by mouth once daily 90 tablet 3 ??? isosorbide mononitrate CR 24hr (IMDUR) 60 MG tablet Take 1 tablet by mouth once daily 90 tablet3 ??? irbesartan (AVAPRO) 75 MG tablet Take 1 tablet by mouth once daily (Patient not taking: Reported on 09/21/2018) 30 tablet 5 ??? aspirin (ASPIRIN) 81 MG tablet Take 81 mg by mouth Two times a week ??? [place]-3 Fatty Acids (OMEGA 3 PO) Take by mouth once daily ? ? Ubiquinol 100 MG Take 100 mg by mouth every Thursday, Thursday & Thursday No current facility-administered medications for this visit. [...] Coronary Artery Disease Maternal Grandmother Exam BP 139/74 Pulse 64 Ht 1.753 m (5' 9 ) Wt 71.2 kg (157 lb) SpO2 98% BMI 23.18 kg/m2 Filed Wts: 10/05/18 0801 Weight: 71.2 kg (157 lb) General -- Pleasant, NAD Eyes -- [...] Derm -- no rash Assessment and Plan Essential hypertension Agatston coronary artery calcium 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 Hypercholesteremia Abnormal stress echo 1. CAD thought stable. No angina lately - improved.. Stress echo mildly abnormal w/ good ex frannie. 2. ASA has historically bothered his stomach, but is tolerating infrequent ASA. Continue ASA 81 mg 2x/week. 3. He has not preferred to take a statin med. 4. HTN controlled. Stopping Irbesartan helped his orthostatic lightheadedness. 5. Amlodipine helped with BP and Raynaud's. 6. Has a goal with his hydraulic strainer operator of building up to run a 9 minute mile !! 7. Again encouraged non-pharmacological anti-anginal therapy - e.g. Diet, sleep, yoga, exercise, meditation, other stress mgmt, etc) 8. Carotid US with mild plaquing for L sided soft bruit. 9. Routine f/u in 6 mo. Parag Lam III, MD, [facility] [email or web address] OPERATOR CONTACT LENS * Jeannie Huntley - 10/05/2018 7:58 AM CST Discuss Amlodipine Weight down 2 lbs since last OV Denies CP, lightheadedness BP averages 130/70 for the last month E OPERATOR CONTACT LENS documented in this encounter Plan of Treatment Not on file documented as of this encounter Visit Diagnoses Diagnosis Essential hypertension- Primary Agatston coronary artery calcium 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 Nonspecific (abnormal) findings on radiological and other examination of other intrathoracic organs Hypercholesteremia Pure hypercholesterolemia Abnormal stress echo Other nonspecific abnormal cardiovascular system function study documented in this encounter Care Teams Data Analyst Report Writer Relationship Specialty Start Date End Date Ilan Whitley DO [address] [place] [id number] PCP - General Internal Medicine 08/12/17 06/12/20 documented as of this encounter
--- OUTSIDE RECORDS SUMMARY | 2024-10-30 02:26 | XMS_ITS | Encounter Summary ---
Author Organization [facility] Health Address [address] [facility] [place] [address] Care Team Providers Care Brownfield Redevelopment Specialist Name Role Phone Gutierrez Ilan Sousa DO Primary Care Provider Reason for Visit * Reason Onset Date Comments Results 09/23/2017 Carotid u/s Encounter Details Date Type Department Care Team (Late st Contact Info) Description 09/23/[address] [address] Parag Lam MD [address] [place] [phone] Results (Carotid u/s) Social History Tobacco Use Types Packs/Day Years [...] Telephone Encounter - Parag Lam MD - 09/24/2017 1:32 PM CST Left detailed message for pt describing why I think he should have a nuclear cardiac stress test, but there are options. He is advised to call us back to discuss. I advised that carotid US shows mildplaquing bilaterally - advised conservative Rx. OMS COMPLIANCE MANAGER * Telephone Encounter - Jenanie Huntley - 09/23/2017 9:22 AM CST Patient presented to office for nuclear stress test. Per Natalie, patient did not understand he wasscheduled for a nuclear study and refused test. He would like to discuss carotid u/s results (had at [facility] 09/23/17) with you first to determine ifactually requires a stress test. OMS COMPLIANCE MANAGER documented in this encounter Plan of Treatment Not on file documented as of this encounter Visit Diagnoses Not on filedocumented in this encounter Care Teams Brownfield Redevelopment Specialist Relationship Specialty Start Date End Date Ilan Whitley DO [address] [place] [id number] PCP - General Internal Medicine 08/12/17 06/12/20 documented as of this encounter
--- OUTSIDE RECORDS SUMMARY | 2024-10-30 02:26 | XMS_ITS | Encounter Summary ---
Author Organization [facility] Health Address [address] [facility] [place] [address] Care Team Providers Care Landing Gear Mechanic Name Role Phone Ilan Whitley DO Primary Care Provider Reason for Visit * Reason Comments Refill Request Encounter Details Date Type Department Care Team (Late st Contact Info) Description 06/04/[address] [address] Parag Lam MD [address] [place] [phone] Refill Request Social History Tobacco Use Types [...] on filedocumented in this encounter Care Teams Landing Gear Mechanic Relationship Specialty Start Date End Date Ilan Whitley DO [address] [place] [phone] PCP - General Internal Medicine 08/12/17 06/12/20 documented as of this encounter
--- OUTSIDE RECORDS SUMMARY | 2024-10-30 02:26 | XMS_ITS | Encounter Summary ---
Author Organization [facility] Health Address [address] [place] [address] Care Team Providers Care Skidder Operator Name Role Phone Gutierrez Ilan Sousa Primary Care Provider Reason for Visit * Reason Comments Blood Pressure Encounter Details Date Type Department Care Team (Late st Contact Info) Description 09/07/2018 Telephone [facility] - [address], [facility] [address] [place] [address] Parag Lma MD [address] [place] [phone] Blood Pressure Social History Tobacco Use [...] * Telephone Encounter - Jeannie Huntley - 09/08/2018 9:48 AM CST Spoke with patient who understands and agrees. He thanked me for calling. NAC OPERATOR * Telephone Encounter - Parag Lam MD - 09/08/2018 7:40 AM CST Yes, please advise daily moderate exercise, low sodium intake, working on stress/anxiety managementand increase Amlodipine to 10 mg qday. BP log to us in 3-4 weeks. NAC OPERATOR * Telephone Encounter - Erica Dowice - 09/07/2018 3:46 PM CST Mr. Mccauley phoned stating his BP has been increasing over the last few days with example of 160/80.He would like to know if he should increase current amlodipine 5 mg to amlodipine 10 mg? He can be reached at [phone]. NAC OPERATOR documented in this encounter Plan of Treatment Not on file documented as of this encounter Visit Diagnoses Not on filedocumented in this encounter Care Teams Skidder Operator Relationship Specialty Start Date End Date Ilan Whitley DO [address] [place] [id number] PCP - General Internal Medicine 08/12/17 06/12/20 documented as of this encounter
--- OUTSIDE RECORDS SUMMARY | 2024-10-30 02:26 | XMS_ITS | Encounter Summary ---
Author Organization [facility] Health Address [address] [facility] [place] [address] Care Team Providers Care Cnc Operator Programmer Name Role Phone Gutierrez Ilan Sousa DO Primary Care Provider Reason for Visit * Reason Onset Date Comments Medication Management 10/19/2017 Encounter Details Date Type Department Care Team (Late st Contact Info) Description 10/19/[address] [address] Parag Lam MD [address] [place] [phone] Medication Management Social History Tobacco Use Types [...] Telephone Encounter - Parag Lam MD - 10/20/2017 6:04 PM CST Called pt. Answered his questions to best of my ability. I cannot endorse cyclodextrin with inadequate data at present. He is feeling better and walking farther. Feeling so much better. CTOR OF PROPERTY MANAGEMENT * Telephone Encounter - Jeannie Huntley - 10/19/2017 2:16 PM CST Patient would like to discuss possible use of Cyclodextrin to reduce plaque. CTOR OF PROPERTY MANAGEMENT documented in this encounter Plan of Treatment Not on file documented as of this encounter Visit Diagnoses Not on filedocumented in this encounter Care Teams Cnc Operator Programmer Relationship Specialty Start Date End Date Ilan Whitley DO [address] [place], [place] [phone] PCP - General Internal Medicine 08/12/17 06/12/20 documented as of this encounter
--- OUTSIDE RECORDS SUMMARY | 2024-10-30 02:26 | XMS_ITS | Encounter Summary ---
Author Organization [facility] Health Address [address] [place] [address] Care Team Providers Care Dump Grader Name Role Phone Ilan Whitley DO Primary Care Provider Reason for Visit * Reason Comments Follow-up Encounter Details Date Type Department Care Team (Late st Contact Info) Description 12/11/2017 11:30 AM SUPERVISOR WHIPPED TOPPING Office Visit [address] [address] Parag Lam MD [address] [place] [phone] Exertional angina (Primary Dx); Agatston coronary [...] Sign Reading Time Taken Comments Blood Pressure 114/70 12/11/2017 11:26 AM SUPERVISOR WHIPPED TOPPING Pulse 56 12/11/2017 11:26 AM SUPERVISOR WHIPPED TOPPING Temperature - - Respiratory Rate - - Oxygen Saturation 98% 12/11/2017 11:26 AM SUPERVISOR WHIPPED TOPPING Inhaled Oxygen Concentration - - Weight 72.6 kg (160 lb) 12/11/2017 11:26 AM SUPERVISOR WHIPPED TOPPING Height 165.1 cm (5' 5 ) 12/11/2017 11:26 AM SUPERVISOR WHIPPED TOPPING Body Mass Index 26.63 12/11/2017 11:26 AM SUPERVISOR WHIPPED TOPPING documented in this encounter Progress Notes * Hoose, Jeannie - 12/11/2017 11:22 AM CST 10 week f/u Weight down 1 lb since last OV Reports being free of discomfort entirely - I have no discomfort RVISOR WHIPPED TOPPING * Parag Lam MD - 12/11/2017 11:15 AM CST Images from the original note [...] Weight down 1 lb since last OV Reports being free of discomfort entirely - I have no discomfort . Has been able to jog a 12 min mile on a school track w/o chest discomfort. Mild orthostatic lightheadedness w/ combo of irbesartan + isosorbide, but tolerable. Carotid US showed mild bilateral plaquing (i.e. no suggestion of plaque > 50%). No JUNIOR. No vision change. Comprehensive system review is otherwise negative for [...] Outpatient Prescriptions Medication Sig Dispense Refill ??? diazePAM (VALIUM) 5 MG tablet Take 5 mg by mouth 3 times daily as needed ??? aspirin (ASPIRIN) 81 MG tablet Take 81 mg by mouth Two times a week ? ? vitamin D3 (CHOLECACIFEROL) 5000 UNITS Take 5,000 Units by mouth every Thursday, Thursday & Thursday ? ? [place]-3 Fatty Acids (OMEGA 3 PO) Take 2,500 mg by mouth every Thursday, Thursday & Thursday ? ? Ubiquinol 100 MG Take 100 mg by mouth every Thursday, Thursday & Thursday ??? irbesartan (AVAPRO) 150 MG tablet Take 150 mg by mouth once daily ??? isosorbide mononitrate CR 24hr (IMDUR) 30 MG tablet Take 1 tablet by mouth once daily 30 tablet5 No current facility-administered medications for this visit. [...] Coronary Artery Disease Maternal Grandmother Exam BP 114/70 Pulse 56 Ht 1.651 m (5' 5 ) Wt 72.6 kg (160 lb) SpO2 98% BMI 26.63 kg/m2 Filed Wts: 12/11/17 1126 Weight: 72.6 kg (160 lb) General -- Pleasant, NAD Eyes -- [...] than 400 Essential hypertension Hypercholesteremia 1. CAD thought stable. Angina essentially gone. Stress echo mildly abnormal w/ good ex frannie. 2. Counseled potential future heart sxs for which he should call/see it or get urgent help. 3. He agrees to continue isosorbide. 4. ASA has historically bothered his stomach, but is tolerating infrequent ASA. Continue ASA 81 mg 2x/week. 5. He has not preferred to take a statin med. 6. HTN controlled. nicely He really prefers to stay on Irbesartan for now. If angina were to worsen, could consider change to something Amlodipine. If lightheadedness were to worsen, we might consider just decreasing Irbesartan. Intolerant of B-blockers. 7. Continue non-pharmacological anti-anginal therapy - e.g. Diet, sleep, yoga, exercise, meditation, other stress mgmt, etc) 8. Carotid US with mild plaquing for L sided soft bruit. 9. Routine f/u in 6 mo. Parag Lam III, MD, [facility] [email or web address] RVISOR WHIPPED TOPPING documented in this encounter Plan of Treatment Not on file documented as of this encounter Visit Diagnoses Diagnosis Exertional angina (HCC)- Primary Other and unspecified angina pectoris Agatston coronary artery calcium 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 Nonspecific (abnormal) findings on radiological and other examination of other intrathoracic organs Essential hypertension Hypercholesteremia Pure hypercholesterolemia documented in this encounter Care Teams Dump Grader Relationship Specialty Start Date End Date Ilan Whitley DO [address] [address] PCP - General Internal Medicine 08/12/17 06/12/20 documented as of this encounter
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
--- OUTSIDE RECORDS SUMMARY | 2024-10-30 02:26 | XMS_ITS | Encounter Summary ---
Author Organization [facility] Health Address [address] [place] [address] Care Team Providers Care Splitting Machine Tender Name Role Phone Ilan Whitley DO Primary Care Provider Reason for Visit * Reason Comments Follow-up Encounter Details Date Type Department Care Team (Late st Contact Info) Description 04/13/2019 11:15 AM CDT [facility] [address], [facility] [address] [place] [address] Parag Lam MD [address] [place] [phone] Exertional angina (Primary Dx); Agatston coronary artery calcium 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; Abnormal stress echocardiogram; Essential hypertension; Hypercholesteremia Social History Tobacco Use [...] Sign Reading Time Taken Comments Blood Pressure 135/72 04/13/2019 11:11 AM CDT Pulse 54 04/13/2019 11:11 AM CDT Temperature - - Respiratory Rate - - Oxygen Saturation 96% 04/13/2019 11:11 AM CDT Inhaled Oxygen Concentration - - Weight 69.4 kg (153 lb) 04/13/2019 11:11 AM CDT Height 175.3 cm (5' 9 ) 04/13/2019 11:11 AM CDT Body Mass Index 22.59 04/13/2019 11:11 AM CDT documented in this encounter Progress Notes * Jeannie Huntley - 04/13/2019 11:10 AM CDT 6 mo f/u Weight down 4 lbs since last OV BP before meds 120/60 Denies CP, lightheadedness, palps, swelling No recent labs * Parag Lam MD - 04/13/2019 10:46 AM CDT Images from the original note were not included. Chief Complaint Patient presents with ??? Follow-up History of Present Illness Ilan Mccauley is a 78 year old male, who follows routinely for exertional angina, high coronary calcium score, systemic HTN and hypercholesterolemia. Weight down 4 lbs since last OV BP before meds 120/60 Denies CP, lightheadedness, palps, swelling I really feel good. No recent labs Carotid US showed mild bilateral plaquing (i.e. no suggestion of plaque > 50%). Exercise - had been working w/ a personal fitness trainer. Does daily walk/runs, but had been going up to 4-5 miles w/ jog/walks. However, hurt hip a bit. So now doing some PT. No HTN; bowels and bladder stable. Comprehensive [...] mouth once daily 90 tablet 3 ??? Icosapent Ethyl (VASCEPA PO) ??? isosorbide mononitrate CR 24hr (IMDUR) 30 MG tablet Take 1 tablet by mouth once daily 90 tablet3 No current facility-administered medications for this visit. [...] Coronary Artery Disease Maternal Grandmother Exam BP 135/72 Pulse 54 Ht 1.753 m (5' 9 ) Wt 69.4 kg (153 lb) SpO2 96% BMI 22.59 kg/m2 Filed Wts: 04/13/19 1111 Weight: 69.4 kg (153 lb) General -- Pleasant, NAD Eyes -- [...] Essential hypertension Hypercholesteremia 1. CAD thought stable. No angina lately - improved. Stress echo 10/2017 mildly abnormal. He and I would like to repeat to assess effectiveness of medical therapy after decreasing amlodipine at his request. 2. I think this makes good sense.. 3. ASA has historically bothered his stomach, but is tolerating infrequent ASA. Continue ASA 81 mg 2x/week. 4. He has not preferred to take a statin med. 5. Exercise is just terrific. Keep it up ! 6. HTN controlled. Stopping Irbesartan helped his orthostatic lightheadedness. 7. Amlodipine helped with BP and Raynaud's. 8. Have repeatedly encouraged non-pharmacological anti-anginal therapy - e.g. Diet, sleep, yoga, exercise, meditation, other stress mgmt, etc) 9. Carotid US 09/2017 showed mild plaquing only, despite bruit. Bruit sounds the same today. Plan repeat US sometime down the road. 10. Routine f/u in 6 mo. Parag Lam III, MD, [facility] [email or web address] documented in this encounter Plan of Treatment Not on file documented as of this encounter Visit Diagnoses Diagnosis Exertional angina (HCC)- Primary Other and unspecified angina pectoris Agatston coronary artery calcium 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 Nonspecific (abnormal) findings on radiological and other examination of other intrathoracic organs Abnormal stress echocardiogram Other nonspecific abnormal cardiovascular system function study Essential hypertension Hypercholesteremia Pure hypercholesterolemia documented in this encounter Care Teams Splitting Machine Tender Relationship Specialty Start Date End Date Ilan Whitley DO [address] [address] PCP - General Internal Medicine 08/12/17 06/12/20 documented as of this encounter
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
--- OUTSIDE RECORDS SUMMARY | 2024-10-30 02:26 | XMS_ITS | Encounter Summary ---
Author Organization [facility] Health Address [address] [facility] [place] [address] Care Team Providers Care Energy Infrastructure Engineer Name Role Phone Ilan Whitley DO Primary Care Provider Reason for Visit * Reason Comments Refill Request Encounter Details Date Type Department Care Team (Late st Contact Info) Description 12/23/[address] [address] Parag Lam MD [address] [place] [address] Refill Request Social History Tobacco Use Types [...] on filedocumented in this encounter Care Teams Energy Infrastructure Engineer Relationship Specialty Start Date End Date Ilan Whitley DO [address] [place] [address] [place] [phone] PCP - General Internal Medicine 08/12/17 06/12/20 documented as of this encounter
--- OUTSIDE RECORDS SUMMARY | 2024-10-30 02:26 | XMS_ITS | Encounter Summary ---
Author Organization [facility] Health Address [address] [facility] [place] [address] Care Team Providers Care Artificial Flowers Supervisor Name Role Phone Ilan Whitley DO Primary Care Provider Reason for Visit * Reason Comments Refill Request Encounter Details Date Type Department Care Team (Late st Contact Info) Description 12/25/[address] [address] Parag Lam MD [address] [place] [address] Refill Request Social History Tobacco Use Types [...] on filedocumented in this encounter Care Teams Artificial Flowers Supervisor Relationship Specialty Start Date End Date Ilan Whitley DO [address] [place] [address] [place] [address] PCP - General Internal Medicine 08/12/17 06/12/20 documented as of this encounter
--- OUTSIDE RECORDS SUMMARY | 2024-10-30 02:26 | XMS_ITS | Encounter Summary ---
Author Organization [facility] Health Address [address] [facility] [place] [address] Care Team Providers Care Scrap Baler Name Role Phone Ilan Whitley DO Primary Care Provider Reason for Visit * Reason Comments Refill Request Encounter Details Date Type Department Care Team (Late st Contact Info) Description 07/12/[address] [address] Parag Lam MD [address] [place] [address] Refill Request Social History Tobacco Use Types [...] on filedocumented in this encounter Care Teams Scrap Baler Relationship Specialty Start Date End Date Ilan Whitley DO [address] [place] [address] [place] [address] PCP - General Internal Medicine 08/12/17 06/12/20 documented as of this encounter
--- OUTSIDE RECORDS SUMMARY | 2024-10-30 02:26 | XMS_ITS | Encounter Summary ---
Author Organization [facility] Health Address [address] [place] [address] Care Team Providers Care Network Manager Name Role Phone Ilan Whitley DO Primary Care Provider Reason for Visit * Reason Onset Date Comments Refill Request 07/06/2018 Encounter Details Date Type Department Care Team (Late st Contact Info) Description 07/06/2018 Refill [facility] - [address], [address] [address] Parag Lam MD [address] [place] [id number] Refill Request Social History Tobacco Use Types [...] on filedocumented in this encounter Care Teams Network Manager Relationship Specialty Start Date End Date Ilan Whitley DO [address] [facility] [address] [place] [address] PCP - General Internal Medicine 08/12/17 06/12/20 documented as of this encounter
--- OUTSIDE RECORDS SUMMARY | 2024-10-30 02:26 | XMS_ITS | Encounter Summary ---
Author Organization [facility] Health Address [address] [facility] [place] [address] Care Team Providers Care Rod Puller And Coiler Name Role Phone Unavailable Primary Care Provider Unavailabl e Reason for Visit * Reason Comments Follow-up Encounter Details Date Type Department Care Team (Late st Contact Info) Description 07/04/2020 8:30 AM CDT Office Visit [facility] - [facility] [address] [place] [address] Tony Valdez MD [address] [place], [place] [id number] Coronary artery disease of [place] artery of [place] heart with stable angina pectoris (HCC) (Primary Dx); Essential hypertension; Hypercholesteremia Social History Tobacco Use [...] Sign Reading Time Taken Comments Blood Pressure 130/80 07/04/2020 9:21 AM CDT Pulse 67 07/04/2020 9:21 AM CDT Temperature - - Respiratory Rate - - Oxygen Saturation 96% 07/04/2020 9:21 AM CDT Inhaled Oxygen Concentration - - Weight 70.8 kg (156 lb) 07/04/2020 9:21 AM CDT Height 175.3 cm (5' 9 ) 07/04/2020 9:21 AM CDT Body Mass Index 23.04 07/04/2020 9:21 AM CDT documented in this encounter Progress Notes * Tony Valdez MD - 07/04/2020 9:53 AM CDT HISTORY OF PRESENT ILLNESS Ilan Mccauley is a 79 year old male HPI: Scheduled for cath by Dr Lam. Wanted to meet me. Patient Active Problem List: Essential hypertension Hypercholesteremia Agatston coronary artery calcium 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 Exertional angina Enlarged thoracic aorta Current Outpatient Medications Medication Sig Dispense Refill ??? amLODIPine (NORVASC) 5 MG tablet TAKE 1 TABLET BY MOUTH ONCE DAILY 30 tablet 5 ??? Coenzyme Q10 (COQ-10) 100 MG Take 100 mg by mouth ??? icosapent ethyl (VASCEPA) 1 g capsule Take 4 g by mouth once daily ??? ranolazine ER 12hr (RANEXA) 1000 MG tablet Take 1 tablet by mouth every 12 hours 180 tablet 3 ??? rosuvastatin (CRESTOR) 20 MG tablet Take 1 tablet by mouth once daily 90 tablet 3 ??? vitamin D3 (CHOLECALCIFEROL) 25 MCG (1000 UNITS) tablet Take 1,000 Units by mouth once daily No current facility-administered medications for this visit. REVIEW OF SYSTEMS Constitutional: Negative HEENT: Negative Eyes: Negative Respiratory: Negative for cough, chest tightness and wheezing. Cardiovascular: Negative for chest pain, palpitations and leg swelling. Gastrointestinal: Negative Genitourinary: Negative Musculoskeletal: Negative Skin: Negative Neurological: Negative for syncope and weakness. Hematological: Negative Psychaitric/Behavioral: Negative PHYSICAL EXAM BP 130/80 (BP SITE: RIGHT ARM, BP POSITION: SITTING, BP CUFF SIZE: 11) Pulse 67 Ht 1.753 m (5' 9 ) Wt 70.8 kg (156 lb) SpO2 96% BMI 23.04 kg/m2 Constitutional: He is oriented to person, place and time. The patient appears well-developed and well-nourished. HENT: Head: Normocephalic Eyes: Conjunctivae and extraocular motions are normal. Pupils are equal. Neck: Normal range of motion. Neck supple. No JVD present. Cardiovascular: Normal rate, regular rhythm and normal heart sounds. Pulmonary/Chest: Effort normal and breath sounds normal. No respiratory distress. Abdominal: Soft. Bowel sounds are normal. Exhibits no distension and no tenderness. Musculoskeletal: Normal range of motion. Exhibits no edema and no tenderness. Neurological: Alert and oriented to person, place and time. Condition normal. Skin: Skin is warm and dry. No rash noted. Psychiatric: He has a normal mood and affect. His behavior is normal. ASSESSMENT and PLAN 1) CAD 2) pregressive angina 3) HTN 4) Prostate CA REC: Dr Lam rec cath I described procedure and answered questions documented in this encounter Plan of Treatment Not on file documented as of this encounter Visit Diagnoses Diagnosis Coronary artery disease of [place] artery of [place] heart with stable angina pectoris (HCC)- Primary Essential hypertension Hypercholesteremia Pure hypercholesterolemia documented in this encounter
--- OUTSIDE RECORDS SUMMARY | 2024-10-30 02:26 | XMS_ITS | Encounter Summary ---
Author Organization [facility] Health Address [address] [place] [address] Care Team Providers Care Health Workers Name Role Phone Unavailable Primary Care Provider Unavailabl e Reason for Visit * Reason Comments ECG Encounter Details Date Type Department Care Team (Latest Contact Info) Description 06/13/2020 2:30 PM CDT Procedure visit [facility] - [facility] [address], [address] [place] [address] Exertional angina ; Agatston coronary artery calcium [...] as of this encounter Procedure Notes * Ora Dow - 06/13/2020 3:34 PM CDTAssociated Order(s): EKG 12-LEAD See scan documented in this encounter Plan of Treatment Not on file documented as of this encounter Procedures Procedure Name Priority Date/Time Associated Diagnosis Comments EKG 12-LEAD Routine 06/13/2020 3:34 PM CDT Exertional angina Agatston coronary artery calcium 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 Essential hypertension Hypercholesteremia documented in this encounter Results * EKG 12-LEAD (06/13/2020 [...]
--- OUTSIDE RECORDS SUMMARY | 2024-10-30 02:26 | XMS_ITS | Encounter Summary ---
Author Organization [facility] Health Address [address] [facility] [place] [address] Care Team Providers Care Banquet Bartender Name Role Phone Unavailable Primary Care Provider Unavailabl e Reason for Visit * Reason Onset Date Comments Erroneous encounter-disregard 07/10/2020 Encounter Details Date Type Department Care Team (Late st Contact Info) Description 07/10/2020 Telephone [facility] - [address], [facility] [address] [place] [address] Parag Lam MD [address] [place] [phone] Erroneous encounter-disregard Social History Tobacco Use Types [...]
--- OUTSIDE RECORDS SUMMARY | 2024-10-30 02:28 | XMS_ITS | Encounter Summary ---
Author Organization [facility] [employer] [facility] Address [address] [place] [address] Care Team Providers Care Rn Burn Name Role Phone Anirudh Craft MD Primary Care Provider [phone] Encounter Details Date Type Department Care Team (Late Contact Info) Description 01/25/2024 Orders Only [facility] Oncology and Hematology - [address] [place] [address] Glenn Al MD [address] [place] [phone] Cancer, metastatic to bone Social History Tobacco Use Types Packs/Day Years [...] as of this encounter Plan of Treatment Upcoming Encounters Date Type Department Care Team (Late Contact Info) Description 12/13/2024 9:45 AM FINAL INSPECTOR SHUTTLE Office Visit [facility] Oncology and Hematology - [address] [place] [address] Glenn Al MD [address] [place] [address] documented as of this encounter Visit Diagnoses Diagnosis Cancer, 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
--- OUTSIDE RECORDS SUMMARY | 2024-10-30 02:28 | XMS_ITS | Encounter Summary ---
Author Organization [facility] [employer] [facility] Address [address] [place] [address] Care Team Providers Care Water Safety Teacher Name Role Phone Unavailable Primary Care Provider Unavailabl e Reason for Visit * Reason Comments Chemotherapy Follow Up Encounter Details Date Type Department Care Team (Late st Contact Info) Description 09/20/2024 9:30 AM QA SPECIALIST Office Visit [facility] Oncology and Hematology - [place] [address] [place] [address] [facility] [address] [place] [address] Glenn Al MD [address] [facility] [address] [place] [address] Cancer, metastatic to bone (Primary Dx); Anemia, chronic disease; Other fatigue Social History Tobacco Use Types Packs/Day Years [...] Sign Reading Time Taken Comments Blood Pressure 132/62 09/20/2024 9:25 AM QA SPECIALIST Pulse 55 09/20/2024 9:21 AM QA SPECIALIST Temperature 36.7 ??C (98 ??F) 09/20/2024 9:21 AM QA SPECIALIST Respiratory Rate 15 09/20/2024 9:21 AM QA SPECIALIST Oxygen Saturation 96% 09/20/2024 9:21 AM QA SPECIALIST Inhaled Oxygen Concentration - - Weight 73.6 kg (162 lb 3.2 oz) 09/20/2024 9:21 A M QA SPECIALIST Height - - Body Mass Index 26.99 06/15/2023 8:25 AM CDT documented in this encounter Progress Notes * Glenn Al MD - 09/20/2024 9:57 AM CST HEMATOLOGY / ONCOLOGY PROGRESS NOTE Patient Identification: Name: Ilan Mccauley Age: 84 y.o. Sex: male : 1940 DIAGNOSIS Metastatic prostate cancer with bone involvement status post left posterior acetabulum bone biopsy done in November 2019. CURRENT TREATMENT Eligard every 3-month basis started in my office on March 23 TREATMENT HISTORY SUBJECTIVE Patient came to the office for follow-up visit and Lupron treatment. He has been complaining of tiredness and fatigue. Denies any bone pain. Denies any neuropathy. Weight and appetite stable. No other new complaints. Review of system Constitutional: Patient did not mention fevers, sweats, weight and appetite stable, complain of tiredness and fatigue HEENT: Patient did not mention sinus congestion, hearing or vision problems Respiratory: Patient did not mention cough, dyspnea, wheeze Cardiovascular: Patient did not mention chest pain, exertional chest pressure/discomfort, nausea, syncope, shortness of breath GI: Patient did not mention constipation, diarrhea, dsyphagia, reflux symptoms, vomiting, melena : Patient did not mention dysuria, frequency, incontinence, urgency Integumentary system: no lymphadenopathy, sweats, flushing Musculoskeletal: Patient not mention: myalgia, arthralgia, denies any bone pain Neurological: Patient did not mention blurry or disturbed vision, numbness/weakness, dizziness Skin: No lumps, bumps or rashes. 12 point review of system was reviewed Objective: Vital signs in last 24 hours: As per nursing note Exam: General appearance: alert, cooperative, no distress, appears stated age Head: normocephalic, without obvious abnormality, atraumatic Eyes: conjunctivae/corneas clear, EOM's intact Ears: normal external ear canals AU Nose: Nares normal. Septum midline. Mucosa normal. No drainage or sinus tenderness Throat: Lips, mucosa, and tongue normal. Teeth and gums normal Neck: supple, symmetrical, trachea midline. Lungs: clear to auscultation bilaterally Heart: regular rate and rhythm, S1, S2 normal, no murmur, click, rub or gallop Abdomen: soft, non-tender. Bowel sounds normal. No masses, No organomegaly Extremities: extremities normal, atraumatic, no cyanosis or edema Skin: Skin color, texture, turgor normal. No rashes or lesions Lymph nodes: No lymphadenopathy Neuro: No obvious focal deficit Exam as above PATH LABS Labs from March 05 showed creatinine 0.7 total bilirubin 0.4 PSA less than 0.1 WBC 7.2 hemoglobin 14.5platelet 203,000 Labs from May 29 showed creatinine 0.7 PSA less than 0.1 total bilirubin 0.5 WBC 7.7 hemoglobin 13.5 platelet 204,000 Labs from September 22 showed creatinine 0.7 calcium 9.7 PSA less than 0.1 vitamin D 35.3 WBC 7.7 hemoglobin 14 platelet 222,000 Labs from December 16 showed WBC 8.1 hemoglobin 13.7 platelet 223,000 creatinine 0.7 Labs from March 17 showed WBC 8.5 hemoglobin 13.2 platelet 228,000 creatinine 0.7 Labs from June 28 showed WBC 9.1 hemoglobin 13.3 platelet 226,000 creatinine 0.8 Labs from September 20 showed hemoglobin 12.8 creatinine 1.0 Assessment: Plan: Patient Active Problem List Diagnosis Date Noted Cancer, metastatic to bone 01/17/2020 Prostate cancer 12/14/2019 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 Overview Note: Follow up recommended 05/2016 Essential hypertension Leukocytosis 11/26/2015 Fever 11/26/2015 ARF (acute renal failure) 11/26/2015 Hyponatremia 11/26/2015 Severe sepsis 11/26/2015 E-coli UTI 11/26/2015 Anemia, chronic disease 11/26/2015 Complicated UTI (urinary tract infection) Personal history of prostate cancer Overview Note: s/p removal Elevated PSA Overview Note: s/p bx - cancer Family history of prostate cancer Overview Note: m gf Renal artery stenosis 07/14/2011 Overview Note: 06/12 - mild on R HTN (hypertension) BPH (benign prostatic hyperplasia) 09/07/2009 Erectile dysfunction 09/07/2009 Hyperlipidemia 09/07/2009 Special screening for malignant neoplasm of prostate 09/07/2009 Malaise and fatigue 09/07/2009 Special screening for malignant neoplasms, colon 09/07/2009 Allergic rhinitis 09/07/2009 Metastatic prostate cancer with bone involvement status post left posterior acetabulum bone biopsy done in November 2019. Patient was originally diagnosed with early stage prostate cancer in July 2012 status post radical prostatectomy. He developed relapse disease in November 2019. PSA at that time was 14.7. He started Lupron and Xgeva but Xgeva was discontinued in September 2020 due to dental disease. Patient was found to have right lower lobe pulmonary nodule on June [address] scan. Zytiga was started but only took it for 3 months duration and discontinued due to increased liver function test. Patient received Lupron in my office on March 23. CT scan done in September 2023 showed 3 mm pulmonary nodule indeterminate. Patient is clinically stable. PSA is pending. Will continue treatment with Lupron today and every 3-month basis. Follow-up in 3 months. Anemia. Patient is more tired and fatigue and more anemic. I will check iron studies TSH and vitamin B12 level. He is not taking any iron and B12 supplements. Phone visit in 1 week to discuss labs. Bone metastasis. Asymptomatic. 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 Follow-up in 3 months. 09/20/2024 Glenn Al MD SPECIALIST documented in this encounter Plan of Treatment Upcoming Encounters Date Type Department Care Team (Late st Contact Info) Description 12/13/2024 9:45 AM QA SPECIALIST Office Visit [facility] Oncology and Hematology [facility] [address] [facility] [address] [place] [address] Glenn Al MD [address] [facility] [address] [place] [address] Scheduled Orders Name Type Priority Associated Diagnoses Orde r Schedule CBC WITH DIFFERENTIAL Lab Stat Cancer, metastatic to bone Expected: 12/13/2024, Expires: 09/20/2025 COMPREHENSIVE METABOLIC PANEL Lab Stat Cancer, metastatic to bone Expected: 12/13/2024, Expires: 09/20/2025 PSA Lab Routine Cancer, metastatic to bone Expected: 12/13/2024, Expires: 09/20/2025 FERRITIN Lab Routine Anemia, chronic disease Expected: 09/20/2024, Expires: 09/20/2025 IRON, TIBC, AND PERCENT SATURATION Lab Routine Anemia, chronic disease Expected: 09/20/2024, Expires: 09/20/2025 VITAMIN B12 LEVEL Lab Routine Anemia, chronic disease Expected: 09/20/2024, Expires: 09/20/2025 TRANSFERRIN RECEPTOR TFR SOLUBLE Lab Routine Anemia, chronic disease Expected: 09/20/2024, Expires: 09/20/2025 METHYLMALONIC ACID Lab Routine Anemia, chronic disease Expected: 09/20/2024, Expires: 09/20/2025 TSH Lab Routine Anemia, chronic disease Other fatigue Expected: 09/20/2024, Expires: 09/20/2025 documented as of this encounter Visit Diagnoses Diagnosis Cancer, metastatic to bone- Primary Secondary malignant neoplasm of bone and bone marrow Anemia, chronic disease Anemia of other chronic disease Other fatigue documented in this encounter
--- OUTSIDE RECORDS SUMMARY | 2024-10-30 02:28 | XMS_ITS | Encounter Summary ---
Author Organization [facility] [employer] [facility] Address [address] [place] [address] Care Team Providers Care Private Tutors And Teachers Name Role Phone Anirudh Craft MD Primary Care Provider Encounter Details Date Type Department Care Team (Late Contact Info) Description 06/29/[address] [facility] Oncology and Hematology - [place] [address] [place] [address] Glenn Al MD [address] [employer] [address] [place] [address] Social History Tobacco Use Types Packs/Day Years [...] st Contact Info) Description 12/13/2024 9:45 AM INPUT OUTPUT CLERK Office Visit [facility] Oncology and Hematology - [place] [address] [place] [address] Glenn Al MD [address] [employer] [address] [place] [address] documented as of this encounter Procedures Procedure Name Priority Date/Time Associated Diagnosis Comments BASIC METABOLIC PANEL Routine 06/28/2024 2:05 PM CDT COMPREHENSIVE METABOLIC PANEL Routine 06/28/2024 11:17 AM CDT documented in this encounter Results * BASIC METABOLIC PANEL (06/28/2024 2:05 PM CDT) Blood Glenn Al MD CHEMISTRY ORDERABLES * COMPREHENSIVE METABOLIC PANEL (06/28/2024 11:17 AM CDT) Blood Glenn Al MD CHEMISTRY ORDERABLES documented in this encounter Visit Diagnoses Not on filedocumented in this encounter Care Teams Private Tutors And Teachers Relationship Specialty Start Date End Date Anirudh Craft MD [address] [phone] PCP - General Internal Medicine 08/01/20 09/19/24 documented as of this encounter
--- OUTSIDE RECORDS SUMMARY | 2024-10-30 02:28 | XMS_ITS ---
Author Organization [facility] Address [address] [place] [address] Care Team Providers Care Meter Readers Supervisor Name Role Phone Unavailable Primary Care Provider Unavailabl e Active Problems Patient Care Coordination No te Formatting of this note migh t be different from the original. 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 Overview (11/28/2015): Follow up recommended 05/2016 Leukocytosis 11/26/2015 Fever 11/26/2015 ARF (acute renal failure) 11/26/2015 Hyponatremia 11/26/2015 Severe sepsis 11/26/2015 E-coli UTI 11/26/2015 Anemia, chronic disease 11/26/2015 Renal artery stenosis 07/14/2011 Overview (07/14/2011): 06/12 - mild on R BPH (benign prostatic hyperplasia) 09/07/2009 Erectile dysfunction 09/07/2009 Hyperlipidemia 09/07/2009 Special screening for malignant neoplasm of pros enriquez 09/07/2009 Malaise and fatigue 09/07/2009 Special screening for malignant neoplasms, colon 09/07/2009 Allergic rhinitis 09/07/2009 HTN (hypertension) Family history of prostate cancer Overview (11/25/2011): m gf Elevated PSA Overview (06/25/2012): s/p bx - cancer Personal history of prostate cancer Overview (06/09/2013): s/p removal Complicated UTI (urinary tract infection) Essential hypertension Current Oncology Plans No current plan information found. Past Plans ONCOLOGY THERAPY PLAN Plan Name Start Date Discontinue Date Treatment Medications Discontinue Reason Plan Provider OP ONC LEUPROLIDE (ELIGARD) 22.5 MG SUBCUTANEOUS EVERY 3 MONTHS 12/26/2020 01/24/2024 leuprolide acetate (ELIGARD) Other Joseph Ayala MD OP ONC LEUPROLIDE (ELIGARD) 22.5 MG SUBCUTANEOUS EVERY 3 MONTHS & OP ONC DENOSUMAB (XGEVA) FOR BONE METASTASIS 12/21/2019 10/29/2020 leuprolide acetate (ELIGARD) Not Tolerated Kailyn Blood MD Radiation Treatments * No radiation treatments are documented for this patient in [facility]. Treatments may have been administered in another system. Lifetime Dose Tracking * Chemical Lifetime Dose Automatic Entry Manual Entr y Effective Dose 6.4 mSv 6.4 mSv 0 mSv Total DLP 1,155 DLP 1,155 DLP 0 DLP CTDIvol Max 24.4 mGy 24.4 mGy 0 mGy CTDIvol Min 24.4 mGy 24.4 mGy 0 mGy Resolved Problems Problem Noted Date Diagnosed Date Resolved Date Prostate cancer 06/24/2012 06/09/2013 Heart murmur previously undiagnosed 06/11/2011 11/25/2011 Family hx of prostate cancer 09/07/2009 11/25/2011 Overview (09/07/2009): mGF Prostate cancer 06/09/2013
--- OUTSIDE RECORDS SUMMARY | 2024-10-30 02:28 | XMS_ITS | Encounter Summary ---
Author Organization [facility] [employer] [facility] Address [address] [place] [address] Care Team Providers Care Design Lead Name Role Phone Anirudh Craft MD Primary Care Provider Encounter Details Date Type Department Care Team (Late Contact Info) Description 11/09/2023 Orders Only [facility] Oncology and Hematology [facility] [address] [place] [address] Glenn Al MD [address] [place] [address] Cancer, metastatic to bone; Prostate cancer; Renal artery stenosis; Anemia, chronic disease Social History Tobacco Use Types Packs/Day Years [...] (Late Contact Info) Description 12/13/2024 9:45 AM BROKER IN CHARGE Office Visit [facility] Oncology and Hematology [facility] [address] [place] [address] Glenn Al MD [address] [place] [address] documented as of this encounter Visit Diagnoses Diagnosis Cancer, 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
--- OUTSIDE RECORDS SUMMARY | 2024-10-30 02:28 | XMS_ITS | Encounter Summary ---
Author Organization [facility] [employer] [facility] Address [address] [place] [address] Care Team Providers Care Roller Skates Assembler Name Role Phone Anirudh Craft MD Primary Care Provider [phone] Encounter Details Date Type Department Care Team (Late Contact Info) Description 03/07/2024 Orders Only [facility] Oncology and Hematology - [place] [address] [place] [address] Glenn Al MD [address] [employer] [address] [place] [address] Cancer, metastatic to bone Social History [...] (Late Contact Info) Description 12/13/2024 9:45 AM RESTAURANT BUSSER Office Visit [facility] Oncology and Hematology - [place] [address] [place] [address] Glenn Al MD [address] [place] [address] documented as of this encounter Visit Diagnoses Diagnosis Cancer, 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
--- OUTSIDE RECORDS SUMMARY | 2024-10-30 02:28 | XMS_ITS | Encounter Summary ---
Author Organization [facility] [employer] [facility] Address [address] [place] [address] Care Team Providers Care Application Engineer Name Role Phone Anirudh Craft MD Primary Care Provider Encounter Details Date Type Department Care Team (Late Contact Info) Description 02/15/2024 Orders Only [facility] Oncology and Hematology [facility] [address] [place] [address] Glenn Al MD [address] [place] [address] Cancer, metastatic to bone; Prostate [...] (Late Contact Info) Description 12/13/2024 9:45 AM POSTDOCTORAL FELLOW Office Visit [facility] Oncology and Hematology [facility] [address] [place] [address] Glenn Al MD [address] [place] [address] documented as of this encounter Visit Diagnoses Diagnosis Cancer, 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
--- OUTSIDE RECORDS SUMMARY | 2024-10-30 02:28 | XMS_ITS | Encounter Summary ---
Author Organization [facility] [employer] [facility] Address [address] [place] [address] Care Team Providers Care Mule Spinner Name Role Phone Anirudh Craft MD Primary Care Provider [phone] Encounter Details Date Type Department Care Team (Late Contact Info) Description 10/26/2023 Orders Only [facility] Oncology and Hematology [facility] [address] [place] [address] Glenn Al MD [address] [employer] [address] [place] [address] Cancer, metastatic to bone; Prostate cancer; [...] (Late Contact Info) Description 12/13/2024 9:45 AM WORKERS COMPENSATION CONSULTANT Office Visit [facility] Oncology and Hematology [facility] [address] [place] [address] Glenn Al MD [address] [place] [address] documented as of this encounter Visit Diagnoses Diagnosis Cancer, 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
--- OUTSIDE RECORDS SUMMARY | 2024-10-30 02:28 | XMS_ITS | Encounter Summary ---
Author Organization [facility] [employer] [facility] Address [address] [place] [address] Care Team Providers Care Light Bulb Assembler Name Role Phone Anirudh Craft MD Primary Care Provider [phone] Encounter Details Date Type Department Care Team (Late Contact Info) Description 05/16/2024 Orders Only [facility] Oncology and Hematology - [place]p [address] [place] [address] Glenn Al MD [address] [email or web address] [address] [place] [address] Cancer, metastatic to bone Social History [...] (Late Contact Info) Description 12/13/2024 9:45 AM CLEARING HAND Office Visit [facility] Oncology and Hematology - [place] [address] [place] [address] Glenn Al MD [address] [email or web address] [place] [address] documented as of this encounter Visit Diagnoses Diagnosis Cancer, 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
--- OUTSIDE RECORDS SUMMARY | 2024-10-30 02:28 | XMS_ITS | Encounter Summary ---
Author Organization [facility] Address [address] [place] [address] Care Team Providers Care Aircraft Launch And Recovery Technician Name Role Phone Anirudh Craft MD Primary Care Provider Encounter Details Date Type Department Care Team (Late st Contact Info) Description 12/18/2023 External Device Data STL ABSTRACTION Provider, Abstract NO ADDRESS ON FILE Social History Tobacco Use Types Packs/Day Years [...] st Contact Info) Description 12/13/2024 9:45 AM BELT WEAVER Office Visit [facility] Oncology and Hematology - [place] [address] [facility] [address] [place] [address] Glenn Al MD [address] [facility] [address] [place] [address] documented as of this encounter Visit Diagnoses Not on filedocumented in this encounter Care Teams Aircraft Launch And Recovery Technician Relationship Specialty Start Date End Date Anirudh Craft MD [address] [facility] 4 [place] [phone] PCP - General Internal Medicine 08/01/20 09/19/24 documented as of this encounter
--- OUTSIDE RECORDS SUMMARY | 2024-10-30 02:28 | XMS_ITS | Encounter Summary ---
Author Organization [facility] [employer] [facility] Address [address] [place] [address] Care Team Providers Care Flour Blender Helper Name Role Phone Anirudh Craft MD Primary Care Provider Encounter Details Date Type Department Care Team (Late Contact Info) Description 12/21/2023 Orders Only [facility] Oncology and Hematology [facility] [address] [place] [address] Glenn Al MD [address] [employer] [address] [place] [address] Cancer, metastatic to bone; Prostate cancer; [...] (Late Contact Info) Description 12/13/2024 9:45 AM NURSE UNIT MANAGER Office Visit [facility] Oncology and Hematology 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
--- OUTSIDE RECORDS SUMMARY | 2024-10-30 02:28 | XMS_ITS | Encounter Summary ---
Author Organization [facility] Address [address] [place] [address] Care Team Providers Care Ct Scan Technician Name Role Phone Anirudh Craft MD Primary Care Provider Encounter Details Date Type Department Care Team (Late st Contact Info) Description 08/02/2024 External Device Data STL ABSTRACTION Provider, Abstract [...] st Contact Info) Description 12/13/2024 9:45 AM MOTTLE LAY UP OPERATOR Office Visit [facility] Oncology and Hematology - [place] [address] [facility] [address] [place] [address] Glenn Al MD [address] [facility] [address] [place] [address] documented as of this encounter Visit Diagnoses Not on filedocumented in this encounter Care Teams Ct Scan Technician Relationship Specialty Start Date End Date Anirudh Craft MD [address] [facility] 4 [place] [phone] PCP - General Internal Medicine 08/01/20 09/19/24 documented as of this encounter
--- OUTSIDE RECORDS SUMMARY | 2024-10-30 02:28 | XMS_ITS | Encounter Summary ---
Author Organization [facility] [employer] [facility] Address [address] [place] [address] Care Team Providers Care Infrastructure Manager Name Role Phone Anirudh Craft MD Primary Care Provider Encounter Details Date Type Department Care Team (Late Contact Info) Description 10/05/2023 Orders Only [facility] Oncology and Hematology - Josep Giovana [address] [place] [address] Glenn Al MD [facility] [employer] [address] [place] [address] Cancer, metastatic to bone Social History [...] (Late Contact Info) Description 12/13/2024 9:45 AM HOSPITAL CLERK Office Visit [facility] Oncology and Hematology - Jsoep Giovana Dennison [address] [place] [address] Glenn Al MD [address] [place] [address] documented as of this encounter Visit Diagnoses Diagnosis Cancer, 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
--- OUTSIDE RECORDS SUMMARY | 2024-10-30 02:28 | XMS_ITS | Encounter Summary ---
Author Organization [facility] [employer] [facility] Address [address] [place] [address] Care Team Providers Care Videotape Operator Name Role Phone Anirudh Craft MD Primary Care Provider [phone] Encounter Details Date Type Department Care Team (Late Contact Info) Description 02/22/2024 Orders Only [facility] Oncology and Hematology - Josep Giovana Dennison [address] [place] [address] Glenn Al MD [facility] [employer] [address] [place] [address] Cancer, metastatic to bone Social History [...] (Late Contact Info) Description 12/13/2024 9:45 AM SWITCHBOARD OPERATOR Office Visit [facility] Oncology and Hematology - Josep Giovana Dennison [address] [place] [address] Glenn Al MD [address] [employer] [address] [place] [address] documented as of this encounter Visit Diagnoses Diagnosis Cancer, 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
--- OUTSIDE RECORDS SUMMARY | 2024-10-30 02:28 | XMS_ITS | Encounter Summary ---
Author Organization [facility] Address [address] [place] [address] Care Team Providers Care Film Recordist Name Role Phone Anirudh Craft MD Primary Care Provider [phone] Encounter Details Date Type Department Care Team (Late st Contact Info) Description 11/03/2023 External Device Data STL ABSTRACTION Provider, Abstract [...] st Contact Info) Description 12/13/2024 9:45 AM ANIMAL PATHOLOGIST Office Visit [facility] Oncology and Hematology - Josep [address] [facility] [address] [place] [address] Glenn Al MD [address] [facility] [address] [place] [address] documented as of this encounter Visit Diagnoses Not on filedocumented in this encounter Care Teams Film Recordist Relationship Specialty Start Date End Date Anirudh Craft MD [address] [facility] [address] [place] [phone] PCP - General Internal Medicine 08/01/20 09/19/24 documented as of this encounter
--- OUTSIDE RECORDS SUMMARY | 2024-10-30 02:28 | XMS_ITS | Encounter Summary ---
Author Organization [facility] [employer] [facility] Address [address] [place] [address] Care Team Providers Care Hoeing Row Boss Name Role Phone Anirudh Craft MD Primary Care Provider [phone] Encounter Details Date Type Department Care Team (Late Contact Info) Description 03/14/2024 Orders Only [facility] Oncology and Hematology [facility] [address] [place] [address] Glenn Al MD [address] [employer] [address] [place] [address] Cancer, metastatic to bone; Prostate [...] (Late Contact Info) Description 12/13/2024 9:45 AM IMPREGNATING TANK OPERATOR Office Visit [facility] Oncology and Hematology [facility] [address] [place] [address] Glenn Al MD [address] [place] [address] documented as of this encounter Visit Diagnoses Diagnosis Cancer, 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
--- OUTSIDE RECORDS SUMMARY | 2024-10-30 02:28 | XMS_ITS | Encounter Summary ---
Author Organization [facility] [email or web address] [facility] Address [address] [place] [address] Care Team Providers Care Stake Driver Name Role Phone Anirudh Craft MD Primary Care Provider Encounter Details Date Type Department Care Team (Late Contact Info) Description 11/02/2023 Orders Only [facility] Oncology and Hematology - Josep Giovana [address]ennison [address] [place] [address] Glenn Al MD [facility] [employer] [address] [place] [address] Cancer, metastatic to bone Social History [...] st Contact Info) Description 12/13/2024 9:45 AM MANAGER INSIDE Office Visit [facility] Oncology and Hematology - Josep Giovana Dennison [address] [place] [address] Glenn Al MD [address] [employer] [address] [place] [address] documented as of this encounter Visit Diagnoses Diagnosis Cancer, 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
--- OUTSIDE RECORDS SUMMARY | 2024-10-30 02:28 | XMS_ITS | Encounter Summary ---
Author Organization [facility] [employer] [facility] Address [address] [place] [address] Care Team Providers Care Console Assembler Name Role Phone Anirudh Craft MD Primary Care Provider Reason for Visit * Reason Comments Cancer Chemotherapy Encounter Details Date Type Department Care Team (Late st Contact Info) Description 12/16/2023 10:00 AM COMMERCIAL CORRESPONDENT Office Visit [facility] Oncology and Hematology - Josep [address] [place] [address] Glenn Al MD [address] [facility] [address] [place] [address] Cancer, metastatic to bone (Primary Dx) Social History Tobacco Use Types Packs/Day Years Used Date Smoking Tobacco: Former Cigarettes Q uit: 11/02/1967 Smokeless Tobacco: Never Tobacco Cessation:Counseling Given: Not Answered Alcohol Use Standard Drinks/Week Comments No 0 (1 standard drink = 0.6 oz pur e alcohol) Sex and Gender Information Value Date Recorded Sex Assigned at Not on file Gender Identity Not on file Sexual Orientation Not on file documented as of this encounter Last Filed Vital Signs Vital Sign Reading Time Taken Comments Blood Pressure 114/70 12/16/2023 9:40 AM COMMERCIAL CORRESPONDENT Pulse 61 12/16/2023 9:40 AM COMMERCIAL CORRESPONDENT Temperature 36.4 ??C (97.5 ??F) 12/16/2023 9:40 AM CS T Respiratory Rate 15 12/16/2023 9:40 AM COMMERCIAL CORRESPONDENT Oxygen Saturation 98% 12/16/2023 9:40 AM COMMERCIAL CORRESPONDENT Inhaled Oxygen Concentration - - Weight 70.8 kg (156 lb) 12/16/2023 9:40 AM COMMERCIAL CORRESPONDENT Height - - Body Mass Index 25.96 06/15/2023 8:25 AM CDT documented in this encounter Progress Notes * Glenn Al MD - 12/16/2023 9:49 AM CST HEMATOLOGY / ONCOLOGY PROGRESS NOTE Patient Identification: Name: Ilan Mccauley Age: 83 y.o. Sex: male : 1940 DIAGNOSIS Metastatic prostate cancer with bone involvement status post left posterior acetabulum bone biopsy done in November 2019. CURRENT TREATMENT Eligard every 3-month basis started in my office on March 23 TREATMENT HISTORY SUBJECTIVE Patient came to the office for follow-up visit. He denies any bone pain. Denies any weight loss. Nochest pain or shortness of breath. Denies any excessive tiredness and fatigue. No other new complaints. Review of system Constitutional: Patient did not mention fevers, sweats, denies any tiredness and fatigue, weight and appetite stable. Intermittent hot flashes HEENT: Patient did not mention sinus congestion, [...] sweats, flushing Musculoskeletal: Patient not mention: myalgia, arthralgia Neurological: Patient did not mention blurry or [...] 8.1 hemoglobin 13.7 platelet 223,000 creatinine 0.7 Assessment: Plan: Patient Active Problem List Diagnosis [...] 2023 showed 3 mm pulmonary nodule indeterminate. PSA is pending from today. He would like to continue Eligard on every 3 months basis. He has been tolerating it fairly well other than some hot flashes. I plan to see him back in 3 months. Bone metastasis. He is asymptomatic. 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 History of elevated liver enzymes. Stable. Follow-up in 3 months. TOBACCO COUNSELING He is not a tobacco/nicotine user. 12/16/2023 Glenn Al MD ERCIAL CORRESPONDENT documented in this encounter Plan of Treatment Upcoming Encounters Date Type Department Care Team (Late st Contact Info) Description 12/13/2024 9:45 AM COMMERCIAL CORRESPONDENT Office Visit [facility] Oncology and Hematology [facility] [address] [place] [address] [facility] [address] [place] [address] Glenn Al MD [address] [facility] [address] [place] [address] Scheduled Orders Name Type Priority Associated Diagnoses Orde r Schedule CBC WITH DIFFERENTIAL Lab Stat Cancer, metastatic to bone Expected: 03/09/2024, Expires: 12/16/2024 BASIC METABOLIC PANEL Lab Stat Cancer, metastatic to bone Expected: 03/09/2024, Expires: 12/16/2024 PSA Lab Routine Cancer, metastatic to bone Expected: 03/09/2024, Expires: 12/15/2024 documented as of this encounter Visit Diagnoses Diagnosis Cancer, metastatic to bone- Primary Secondary malignant neoplasm of bone and bone marrow documented in this encounter Care Teams Console Assembler Relationship Specialty Start Date End Date Anirudh Craft MD 3[address] [facility] [place] [address] PCP - General Internal Medicine 08/01/20 09/19/24 documented as of this encounter
--- OUTSIDE RECORDS SUMMARY | 2024-10-30 02:28 | XMS_ITS | Encounter Summary ---
Author Organization [facility] [employer] [facility] Address [address] [place] [address] Care Team Providers Care Coordinating Producer Name Role Phone Anirudh Craft MD Primary Care Provider Encounter Details Date Type Department Care Team (Late Contact Info) Description 10/12/2023 Orders Only [facility] Oncology and Hematology [facility] [address] [place] [address] Glenn Al MD [address] [employer] [address] [place] [address] Cancer, metastatic to bone; Prostate cancer; [...] (Late Contact Info) Description 12/13/2024 9:45 AM MOTOR VEHICLE COMPLIANCE ANALYST Office Visit [facility] Oncology and Hematology [facility] [address] [place] [address] Glenn Al MD [address] [place] [address] documented as of this encounter Visit Diagnoses Diagnosis Cancer, 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
--- OUTSIDE RECORDS SUMMARY | 2024-10-30 02:28 | XMS_ITS | Encounter Summary ---
Author Organization [facility] [employer] [facility] Address [address] [place] [address] Care Team Providers Care Development Manager Name Role Phone Anirudh Craft MD Primary Care Provider Encounter Details Date Type Department Care Team (Late Contact Info) Description 01/04/2024 Orders Only [facility] Oncology and Hematology [facility] [address] [place] [address] Glenn Al MD [address] [employer] [address] [place] [address] Cancer, metastatic to bone; Prostate [...] (Late Contact Info) Description 12/13/2024 9:45 AM FORCE DISPATCHER Office Visit [facility] Oncology and Hematology [facility] [address] [place] [address] Glenn Al MD [address] [employer] [address] [place] [address] documented as of this encounter Visit Diagnoses Diagnosis Cancer, 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
--- OUTSIDE RECORDS SUMMARY | 2024-10-30 02:28 | XMS_ITS | Encounter Summary ---
Author Organization [facility] [employer] [facility] Address [address] [place] [address] Care Team Providers Care Book Jacket Cover Machine Operator Name Role Phone Anirudh Craft MD Primary Care Provider Encounter Details Date Type Department Care Team (Late Contact Info) Description 01/18/2024 Orders Only [facility] Oncology and Hematology [facility] [address] [place] [address] Glenn Al MD [address] [employer] [address] [place] [address] Cancer, metastatic to bone; Prostate [...] (Late Contact Info) Description 12/13/2024 9:45 AM SQL PROGRAMMER ANALYST Office Visit [facility] Oncology and Hematology [facility] [address] [place] [address] Glenn Al MD [address] [employer] [address] [place] [address] documented as of this encounter Visit Diagnoses Diagnosis Cancer, 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
--- OUTSIDE RECORDS SUMMARY | 2024-10-30 02:28 | XMS_ITS | Encounter Summary ---
Author Organization [facility] Address [address] [place] [address] Care Team Providers Care Certified Orthotist Practice Manager Name Role Phone Anirudh Craft MD Primary Care Provider Encounter Details Date Type Department Care Team (Late st Contact Info) Description 04/05/2024 External Device Data STL ABSTRACTION Provider, Abstract [...] st Contact Info) Description 12/13/2024 9:45 AM HOOP ROLLS OPERATOR Office Visit [facility] Oncology and Hematology - Josep 2[address] [facility] 200 [place] [address] Glenn Al MD 2[address] [facility] [address] [place] [address] documented as of this encounter Visit Diagnoses Not on filedocumented in this encounter Care Teams Certified Orthotist Practice Manager Relationship Specialty Start Date End Date Anirudh Craft MD 3[address] [facility] 4 [place] [phone] PCP - General Internal Medicine 08/01/20 09/19/24 documented as of this encounter
--- OUTSIDE RECORDS SUMMARY | 2024-10-30 02:28 | XMS_ITS | Encounter Summary ---
Author Organization [facility] [employer] [facility] Address [address] [place] [address] Care Team Providers Care Terminal Carman Name Role Phone Anirudh Craft MD Primary Care Provider Encounter Details Date Type Department Care Team (Late Contact Info) Description 12/14/2023 Orders Only [facility] Oncology and Hematology - Josep Giovana Denn[address] [place] [address] Glenn Al MD 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
--- OUTSIDE RECORDS SUMMARY | 2024-10-30 02:28 | XMS_ITS | Encounter Summary ---
Author Organization [facility] Address [address] [place] [address] Care Team Providers Care Fruit Picker Name Role Phone Anirudh Craft MD Primary Care Provider [phone] Encounter Details Date Type Department Care Team (Late st Contact Info) Description 04/19/2024 External Device Data STL ABSTRACTION Provider, Abstract [...] st Contact Info) Description 12/13/2024 9:45 AM BILINGUAL SALES ASSISTANT Office Visit [facility] Oncology and Hematology - Josep 2227 [facility] 200 [place] [address] Glenn Al MD 2[address] [facility] [address] [place] [address] documented as of this encounter Visit Diagnoses Not on filedocumented in this encounter Care Teams Fruit Picker Relationship Specialty Start Date End Date Anirudh Craft MD 3908 [facility] 4 [place] [address] PCP - General Internal Medicine 08/01/20 09/19/24 documented as of this encounter
--- OUTSIDE RECORDS SUMMARY | 2024-10-30 02:28 | XMS_ITS | Encounter Summary ---
Author Organization [facility] [employer] [facility] Address [address] [place] [address] Care Team Providers Care Inverted Block Operator Name Role Phone Anirudh Craft MD Primary Care Provider Encounter Details Date Type Department Care Team (Late Contact Info) Description 12/07/2023 Orders Only [facility] Oncology and Hematology [facility] [address] [place] [address] Glenn Al MD [address] [employer] [address] [place] [address] Cancer, metastatic to bone; Prostate cancer; [...] (Late Contact Info) Description 12/13/2024 9:45 AM COIL MACHINE OPERATOR Office Visit [facility] Oncology and Hematology [facility] [address] [place] [address] Glenn Al MD [address] [employer] [place] [address] documented as of this encounter Visit Diagnoses Diagnosis Cancer, 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
--- OUTSIDE RECORDS SUMMARY | 2024-10-30 02:28 | XMS_ITS | Encounter Summary ---
Author Organization [facility] [employer] [facility] Address [address] [place] [address] Care Team Providers Care Volunteer Manager Name Role Phone Anirudh Craft MD Primary Care Provider Encounter Details Date Type Department Care Team (Late Contact Info) Description 08/08/2024 Orders Only [facility] Oncology and Hematology - Josep Giovana Denn[address] [place] [address] Glenn Al MD [facility] [employer] [address] [place] [address] Cancer, metastatic to bone Social History [...] (Late Contact Info) Description 12/13/2024 9:45 AM GASOLINE POWER SHOVEL OPERATOR Office Visit [facility] Oncology and Hematology - Josep Giov[address] [place] [address] Glenn Al MD [address] [employer] [address] [place] [address] documented as of this encounter Visit Diagnoses Diagnosis Cancer, 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
--- OUTSIDE RECORDS SUMMARY | 2024-10-30 02:28 | XMS_ITS | Encounter Summary ---
Author Organization [facility]3] [employer] [facility] Address [address] [place] [address] Care Team Providers Care Pediatric Rn Name Role Phone Anirudh Craft MD Primary Care Provider Encounter Details Date Type Department Care Team (Late Contact Info) Description 08/22/2024 Orders Only [facility] Oncology and Hematology - Josep Giovana [address]enn[address] [place] [address] Glenn Al MD [address] [place] [address] Cancer, metastatic to bone Social History [...] (Late Contact Info) Description 12/13/2024 9:45 AM SURVEY PARTY CHIEF Office Visit [facility] Oncology and Hematology - Josep Giovana [address] [place] [address] Glenn Al MD [address] [place] [address] documented as of this encounter Visit Diagnoses Diagnosis Cancer, 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
--- OUTSIDE RECORDS SUMMARY | 2024-10-30 02:28 | XMS_ITS | Encounter Summary ---
Author Organization [facility] [employer] [facility] Address [address] [place] [address] Care Team Providers Care Dairy Specialist Name Role Phone Anirudh Craft MD Primary Care Provider Encounter Details Date Type Department Care Team (Late Contact Info) Description 09/23/2023 Orders Only [facility] Oncology and Hematology [facility] [address] [place] [address] Glenn Al MD [id number] [place] [address] Cancer, metastatic to bone (Primary [...] st Contact Info) Description 12/13/2024 9:45 AM CHEMICAL PROCESSING LABORER Office Visit [facility] Oncology and Hematology Josep [address] [place] [address] Glenn Al MD [id number] [place] [address] Scheduled Orders Name Type Priority Associated Diagnoses Orde r Schedule VITAMIN B12 AND FOLATE Lab Routine Cancer, metastatic to bone Every Two Weeks for 99 Occurrences starting 09/23/2023 until 09/23/2024 documented as of this encounter Visit Diagnoses Diagnosis Cancer, metastatic to bone- Primary Secondary malignant neoplasm of bone and bone marrow documented in this encounter Care Teams Dairy Specialist Relationship Specialty Start Date End Date Anirudh Craft MD [address] [address] PCP - General Internal Medicine 08/01/20 09/19/24 documented as of this encounter
--- OUTSIDE RECORDS SUMMARY | 2024-10-30 02:28 | XMS_ITS | Encounter Summary ---
Author Organization [facility] [employer] [facility] Address [address] [place] [address] Care Team Providers Care Reel Blade Bender Furnace Tender Name Role Phone Anirudh Craft MD Primary Care Provider [phone] Encounter Details Date Type Department Care Team (Late Contact Info) Description 01/11/2024 Orders Only [facility] Oncology and Hematology - Josep [address] [place] [address] Glenn Al MD [facility] [employer] [address] [place] [address] Cancer, metastatic to bone Social History [...] (Late Contact Info) Description 12/13/2024 9:45 AM SHERIFFS Office Visit [facility] Oncology and Hematology - Josep [address] [place] [address] Glenn Al MD [address] [place] [address] documented as of this encounter Visit Diagnoses Diagnosis Cancer, 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
--- OUTSIDE RECORDS SUMMARY | 2024-10-30 02:28 | XMS_ITS | Encounter Summary ---
Author Organization [facility] [employer] [facility] Address [address] [place] [address] Care Team Providers Care Engineering Drafter Name Role Phone Anirudh Craft MD Primary Care Provider Encounter Details Date Type Department Care Team (Late Contact Info) Description 03/18/2024 Orders Only [facility] Oncology and Hematology - Josep [address] [place] [address] Glenn Al MD [address] [place] [address] Social History Tobacco Use Types [...] Contact Info) Description 12/13/2024 9:45 AM COMMERCIAL DRONE PILOT Office Visit [facility] Oncology and Hematology - Josep [address] [place] [address] Glenn Al MD [address] [place] [address] documented as of this encounter Procedures Procedure Name Priority Date/Time Associated Diagnosis Comments PSA Routine 03/17/2024 9:25 AM CDT documented in this encounter Results * PSA (03/17/2024 9:25 AM CDT) Blood Glenn Al MD CHEMISTRY ORDERABLES documented in this encounter Visit Diagnoses Not on filedocumented in this encounter Care Teams Engineering Drafter Relationship Specialty Start Date End Date Anirudh Craft MD [address] [phone] PCP - General Internal Medicine 08/01/20 09/19/24 documented as of this encounter
--- OUTSIDE RECORDS SUMMARY | 2024-10-30 02:28 | XMS_ITS | Encounter Summary ---
Author Organization [facility] [employer] [facility] Address [address] [place] [address] Care Team Providers Care Account Advisor Name Role Phone Anirudh Craft MD Primary Care Provider Encounter Details Date Type Department Care Team (Late Contact Info) Description 05/02/2024 Orders Only [facility] Oncology and Hematology - Josep [address] [place] [address] Glenn Al MD [facility] [employer] [address] [place] [address] Cancer, metastatic to bone Social History [...] (Late Contact Info) Description 12/13/2024 9:45 AM HRIS COORDINATOR Office Visit [facility] Oncology and Hematology - Josep [address] [place] [address] Glenn Al MD [address] [place] [address] documented as of this encounter Visit Diagnoses Diagnosis Cancer, 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
--- OUTSIDE RECORDS SUMMARY | 2024-10-30 02:28 | XMS_ITS | Encounter Summary ---
Author Organization [facility] [email or web address] [facility] Address [address] [place] [address] Care Team Providers Care Diabetes Nurse Name Role Phone Anirudh Craft MD Primary Care Provider Encounter Details Date Type Department Care Team (Late Contact Info) Description 12/28/2023 Orders Only [facility] Oncology and Hematology - Josep [address] [place] [address] Glenn Al MD [facility] [employer] [address] [place] [address] Cancer, metastatic to bone Social History [...] (Late Contact Info) Description 12/13/2024 9:45 AM LAPPING MACHINE SET UP OPERATOR Office Visit [facility] Oncology and Hematology - Josep [address] [place] [address] Glenn Al MD [address] [employer] [address] [place] [address] documented as of this encounter Visit Diagnoses Diagnosis Cancer, 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
--- OUTSIDE RECORDS SUMMARY | 2024-10-30 02:28 | XMS_ITS | Encounter Summary ---
Author Organization [facility] [employer] [facility] Address [address] [place] [address] Care Team Providers Care Lifeguard Name Role Phone Anirudh Craft MD Primary Care Provider Encounter Details Date Type Department Care Team (Late Contact Info) Description 10/19/2023 Orders Only [facility] Oncology and Hematology - Josep [address] [place] [address] Glenn Al MD [facility] [employer] [address] [place] [address] Cancer, metastatic to bone Social History [...] (Late Contact Info) Description 12/13/2024 9:45 AM PREFABRICATED HOUSES TRIMMER Office Visit [facility] Oncology and Hematology - Josep [address] [place] [address] Glenn Al MD [address] [place] [address] documented as of this encounter Visit Diagnoses Diagnosis Cancer, 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
--- OUTSIDE RECORDS SUMMARY | 2024-10-30 02:28 | XMS_ITS | Encounter Summary ---
Author Organization [facility] [employer] [facility] Address [address] [place] [address] Care Team Providers Care Oil Refinery Process Technician Name Role Phone Anirudh Craft MD Primary Care Provider [phone] Encounter Details Date Type Department Care Team (Late Contact Info) Description 07/25/2024 Orders Only [facility] Oncology and Hematology - Josep [address] [place] [address] Glenn Al MD [facility] [employer] [address] [place] [address] Cancer, metastatic to bone Social History [...] (Late Contact Info) Description 12/13/2024 9:45 AM SCREEDMAN/LABORER Office Visit [facility] Oncology and Hematology - Josep [address] [place] [address] Glenn Al MD [address] [employer] [address] [place] [address] documented as of this encounter Visit Diagnoses Diagnosis Cancer, 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
--- OUTSIDE RECORDS SUMMARY | 2024-10-30 02:28 | XMS_ITS | Encounter Summary ---
Author Organization [facility] [employer] [facility] Address [address] [place] [address] Care Team Providers Care Rim Technician Name Role Phone Anirudh Craft MD Primary Care Provider Reason for Visit * Reason Comments Chemotherapy Encounter Details Date Type Department Care Team (Late st Contact Info) Description 06/28/2024 9:45 AM CDT Office Visit [facility] Oncology and Hematology - Josep [address] [facility] [address] [place] [address] Glenn Al MD [address] [facility] [address] [place] [address] Cancer, metastatic to bone (Primary [...] Sign Reading Time Taken Comments Blood Pressure 118/89 06/28/2024 8:45 AM CDT Pulse 64 06/28/2024 8:45 AM CDT Temperature 36.7 ??C (98 ??F) 06/28/2024 8:45 AM CDT Respiratory Rate 16 06/28/2024 8:45 AM CDT Oxygen Saturation 98% 06/28/2024 8:45 AM CDT Inhaled Oxygen Concentration - - Weight 73 kg (161 lb) 06/28/2024 8:45 AM CDT Height - - Body Mass Index 26.79 06/15/2023 8:25 AM CDT documented in this encounter Progress Notes * Glenn Al MD - 06/28/2024 9:16 AM CDT HEMATOLOGY / ONCOLOGY PROGRESS NOTE Patient Identification: Name: Ilan Mccauley Age: 83 y.o. Sex: male : 1940 DIAGNOSIS Metastatic prostate cancer with bone involvement status post left posterior acetabulum bone biopsy done in November 2019. CURRENT TREATMENT Eligard every 3-month basis started in my office on March 23 TREATMENT HISTORY SUBJECTIVE Patient came to the office for follow-up visit. He denies any chest pain shortness of breath. He has some right knee pain and had received a steroid injection yesterday. Denies any bleeding currently. No other new complaints. Review of system Constitutional: Patient did not mention fevers, sweats, weight and appetite stable, denies any tiredness and fatigue HEENT: Patient did not [...] flushing Musculoskeletal: Patient not mention: myalgia, arthralgia, complain of right knee pain Neurological: Patient did not mention blurry [...] 9.1 hemoglobin 13.3 platelet 226,000 creatinine 0.8 Assessment: Plan: Patient Active Problem List Diagnosis [...] 2023 showed 3 mm pulmonary nodule indeterminate. Labs stable. Last PSA remains less than 0.1. PSA is pending from today. Will continue treatment with Lupron every 3 months basis. Follow-up in 3 months. Bone metastasis. He is asymptomatic. 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 History of elevated liver enzymes. Stable. Follow-up in 3 months. 06/28/2024 Glenn Al MD documented in this encounter Plan of Treatment Upcoming Encounters Date Type Department Care Team (Late st Contact Info) Description 12/13/2024 9:45 AM TANK RIVETER Office Visit [facility] Oncology and Hematology [facility] [address] [place] [address] [address] [place] [address] Glenn Al MD [address] [facility] [address] [place] [address] Scheduled Orders Name Type Priority Associated Diagnoses Orde r Schedule CBC WITH DIFFERENTIAL Lab Stat Cancer, metastatic to bone Expected: 09/20/2024, Expires: 06/28/2025 COMPREHENSIVE METABOLIC PANEL Lab Stat Cancer, metastatic to bone Expected: 09/20/2024, Expires: 06/28/2025 PSA Lab Routine Cancer, metastatic to bone Expected: 09/20/2024, Expires: 06/28/2025 documented as of this encounter Visit Diagnoses Diagnosis Cancer, metastatic to bone- Primary Secondary malignant neoplasm of bone and bone marrow documented in this encounter Care Teams Rim Technician Relationship Specialty Start Date End Date Anirudh Craft MD [address] [phone] PCP - General Internal Medicine 08/01/20 09/19/24 documented as of this encounter
--- OUTSIDE RECORDS SUMMARY | 2024-10-30 02:28 | XMS_ITS | Clinical Summary ---
Author Organization [facility] Address [address] [place], [place] [address] Care Team Providers Care Robotics Testing Technician Name Role Phone Unavailable Primary Care Provider Unavailabl e Allergies Active Allergy Reactions Criticality Noted Date Comments Codeine Nausea and Vomiting High 09/07/2009 Makes patient extremely ill Nebivolol Bradycardia Medium 06/23/2011 Medications Medication Sig Dispensed Refills Start Date End Date Status amLODIPine (NORVASC) 5 mg tablet Take 2.5 mg by mouth daily. Active rosuvastatin (CRESTOR) 20 mg tablet Take 10 mg by mouth daily at bedtime. 10MG NOW PER PT Active coenzyme Q10 100 mg Capsule Take 100 mg by mouth. Active Active Problems Patient Care Coordination No te Formatting of this note migh t be different from the original. Trever Mishra-Croze Cutter awv - 05/12, 05/13 Problem Noted Date [...] Complicated UTI (urinary tract infection) Essential hypertension Resolved Problems Problem Noted Date Diagnosed Date Resolved Date Prostate cancer 06/24/2012 06/09/2013 Heart murmur previously undiagnosed 06/11/2011 11/25/2011 Family hx of prostate cancer 09/07/2009 11/25/2011 Overview (09/07/2009): mGF Prostate cancer 06/09/2013 Encounters Date Type Department Care Team Description 10/03/2024 Orders Only [facility] Oncology and Hematology - Josep [address] Glenn Al MD 09/22/2024 Orders Only [facility] Oncology and Hematology - Josep [address] [place] [phone] Glenn Al MD 09/20/2024 9:30 AM DRAMA DIRECTOR Office Visit [facility] Oncology and Hematology - Josep [address] [place] [phone] Glenn Al MD Cancer, metastatic to bone (Primary Dx); Anemia, chronic disease; Other fatigue 09/19/2024 Orders Only [facility] Oncology and Hematology - Josep [address] [place] [phone] Glenn Al MD Cancer, metastatic to bone 09/05/2024 Orders Only [facility] Oncology and Hematology - Josep [address] Glenn Al MD Cancer, metastatic to bone 08/22/2024 Orders Only [facility] Oncology and Hematology - Josep [address] [place] [address] Glenn Al MD Cancer, metastatic to bone 08/08/2024 Orders Only [facility] Oncology and Hematology - Josep [address] [place] [address] Glenn Al MD Cancer, metastatic to bone 08/02/2024 External Device Data STL ABSTRACTION Provider, Abstract from Last 3 Months Immunizations Name Administration Dates Next Due Influenza Seasonal Unspecifi ed Formulation IM 08/05/2021,08/02/2020,07/03/2015,2012 Family History Medical History Relation Name Comments Unknown Father Cancer Maternal Grandfather prostat e Heart Disease Maternal Grandmother Hypertension Mother Stroke Mother Relation Name Status Comments Father Maternal Grandfather Maternal Grandmother Mother Social History Tobacco Use Types Packs/Day Years [...] Comments Blood Pressure 132/62 09/20/2024 9:25 AM DRAMA DIRECTOR Pulse 55 09/20/2024 9:21 AM DRAMA DIRECTOR Temperature 36.7 ??C (98 ??F) 09/20/2024 9:21 AM DRAMA DIRECTOR Respiratory Rate 15 09/20/2024 9:21 AM DRAMA DIRECTOR Oxygen Saturation 96% 09/20/2024 9:21 AM DRAMA DIRECTOR Inhaled Oxygen Concentration - - Weight 73.6 kg (162 lb 3.2 oz) 09/20/2024 9:21 A M DRAMA DIRECTOR Height 165.1 cm (5' 5 ) 06/15/2023 8:25 AM CDT Body Mass Index 26.99 06/15/2023 8:25 AM CDT Plan of Treatment Upcoming Encounters Date Type Department Care Team (Late st Contact Info) Description 12/13/2024 9:45 AM DRAMA DIRECTOR Office Visit [facility] Oncology and Hematology - Josep [address] [facility] [employer] [address] [place] [address] Glenn Al MD [address] [facility] [address] [place] [address] Health Maintenance Due Date Last Done Comments PNEUMOCOCCAL VACCINE 65+ YEA RS (1 of 2 - PCV) 1946 ZOSTER VACCINE (1 of 2) 1959 RSV VACCINE (60+ or ) (1 - 1-dose 75+ series) 2015 DTAP/TDAP/TD VACCINES (2 - T d or Tdap) 05/13/2021 05/13/2011 COVID-19 Vaccine (2 - Modern a risk series) 03/03/2022 02/03/2022 INFLUENZA VACCINE (#1) 2024 4, 03/03/2023, 08/05/2021, Additional history exists COLORECTAL SCREENING Discontinued 09/05/2011, 09/05/2011, 11/02/2006 Colorectal Cancer Screening Discontinued FIT-DNA Q 3 years Discontinued FIT/FOBT Q 1 year Discontinued Flex Sig/CT Colonography Q 5 years Discontinued Procedures Procedure Name Priority Date/Time Associated Diagnosis Comments METHYLMALONIC ACID Routine 09/28/2024 2: 18 PM DRAMA DIRECTOR COMPREHENSIVE METABOLIC PANEL Routine 09/20/2024 3:12 PM DRAMA DIRECTOR BASIC METABOLIC PANEL Routine 09/20/2024 2:41 PM DRAMA DIRECTOR CBC WITH DIFFERENTIAL Routine 09/20/2024 2:04 PM DRAMA DIRECTOR ENDOSCOPY, COLON, DIAGNOSTIC Routine 09/05/2011 from Last 3 Months or Most Recently Relevant to Health Maintenance Results * METHYLMALONIC ACID (09/28/2024 2:18 PM DRAMA DIRECTOR) Blood Glenn Al MD CHEMISTRY ORDERABLES * COMPREHENSIVE METABOLIC PANEL (09/20/2024 3:12 PM DRAMA DIRECTOR) Blood Glenn Al MD CHEMISTRY ORDERABLES * BASIC METABOLIC PANEL (09/20/2024 2:41 PM DRAMA DIRECTOR) Blood Glenn Al MD CHEMISTRY ORDERABLES * CBC WITH DIFFERENTIAL (09/20/2024 2:04 PM DRAMA DIRECTOR) Blood Glenn Al MD HEMATOLOGY ORDERABLE S * ENDOSCOPY, COLON, DIAGNOSTIC (09/05/2011) Abstract Provider [facility] PROCEDURE [facility]AB [facility] from Last 3 Months or Most Recently Relevant to Health Maintenance Advance Directives For more information, please contact: [phone] Documents on File Type Date Recorded Patient Rand Sewer Expl anation Advance Directive Living Will 10/01/2022 10:01 AM Advance Directive POA 10/01/2022 10:01 AM Advance Directive POA * Full Code (Latest Code Status on File) Date Activated Date Inactivated Comments 11/26/2015 11:40 AM 11/28/2015 1:36 PM * Full Code Date Activated Date Inactivated Comments 11/26/2015 7:51 AM 11/26/2015 11:40 AM * Full Code Date Activated Date Inactivated Comments 07/20/2012 1:40 PM 07/21/2012 12:38 PM * Full Code Date Activated Date Inactivated Comments 07/20/2012 8:49 AM 07/20/2012 1:40 PM * Full Code Date Activated Date Inactivated Comments 07/20/2012 8:00 AM 07/20/2012 8:49 AM
--- OUTSIDE RECORDS SUMMARY | 2024-10-30 02:28 | XMS_ITS | Encounter Summary ---
Author Organization [facility] [employer] [facility] Address [address] [place] [address] Care Team Providers Care Metal Annealer Name Role Phone Anirudh Craft MD Primary Care Provider Encounter Details Date Type Department Care Team (Late Contact Info) Description 09/05/[address] [facility] Oncology and Hematology - Josep [address] [place] [address] Glenn Al MD [facility] [employer] [address] [place] [address] Cancer, metastatic to bone Social History [...] (Late Contact Info) Description 12/13/2024 9:45 AM SUPERVISOR INSPECTION Office Visit 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
--- OUTSIDE RECORDS SUMMARY | 2024-10-30 02:28 | XMS_ITS | Encounter Summary ---
Author Organization [facility] [employer] [facility] Address [address] [place] [address] Care Team Providers Care Firmware Test Engineer Name Role Phone Anirudh Craft MD Primary Care Provider Encounter Details Date Type Department Care Team (Late Contact Info) Description 07/11/2024 Orders Only [facility] Oncology and Hematology - Josep [address] [place] [address] Glenn Al MD [facility] [employer] [address] [place] [address] Cancer, metastatic to bone Social History [...] (Late Contact Info) Description 12/13/2024 9:45 AM OPENER TENDER Office Visit [facility] Oncology and Hematology - Josep [address] [place] [address] Glenn Al MD [address] [employer] [place] [address] documented as of this encounter Visit Diagnoses Diagnosis Cancer, 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
--- OUTSIDE RECORDS SUMMARY | 2024-10-30 02:28 | XMS_ITS | Encounter Summary ---
Author Organization [facility] [employer] [facility] Address [address] [place] [address] Care Team Providers Care Cancer Program Coordinator Name Role Phone Anirudh Craft MD Primary Care Provider Encounter Details Date Type Department Care Team (Late Contact Info) Description 04/18/2024 Orders Only [facility] Oncology and Hematology - Josep [address] [place] [address] Glenn Al MD [facility] [employer] [address] [place] [address] Cancer, metastatic to bone Social History [...] (Late Contact Info) Description 12/13/2024 9:45 AM SERVER Office Visit [facility] Oncology and Hematology - Josep [address] [place] [address] Glenn Al MD [address] [employer] [address] [place] [address] documented as of this encounter Visit Diagnoses Diagnosis Cancer, 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
--- OUTSIDE RECORDS SUMMARY | 2024-10-30 02:28 | XMS_ITS | Encounter Summary ---
Author Organization [facility] [employer] [facility] Address [address] [place] [address] Care Team Providers Care Project Developer Name Role Phone Anirudh Craft MD Primary Care Provider [phone] Encounter Details Date Type Department Care Team (Late Contact Info) Description 02/01/2024 Orders Only [facility] H[facility] [address] [place] [address] Glenn Al MD 2228 [facility] [address] [place] [address] Cancer, metastatic to bone; Prostate cancer; [...] (Late Contact Info) Description 12/13/2024 9:45 AM AIR CONDITIONING COIL ASSEMBLER Office Visit [facility] H[facility] Giovana Denn[address] [place] [address] Glenn Al MD 2227 [facility] [address] [place] [address] documented as of this encounter Visit Diagnoses Diagnosis Cancer, 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
--- OUTSIDE RECORDS SUMMARY | 2024-10-30 02:28 | XMS_ITS | Encounter Summary ---
Author Organization [facility] [employer] [facility] Address [address] [place] [address] Care Team Providers Care Fire Control System Installer Name Role Phone Anirudh Craft MD Primary Care Provider Encounter Details Date Type Department Care Team (Late Contact Info) Description 04/04/2024 Orders Only [facility] Oncology and Hematology - Josep Giov[address] [place] [address] Glenn Al MD [facility] [employer] [address] [place] [address] Cancer, metastatic to bone Social History [...] (Late Contact Info) Description 12/13/2024 9:45 AM ASSOCIATE DEAN Office Visit [facility] Oncology and Hematology - Josep Giovana [address] [place] [address] Glenn Al MD [address] [address] [place] [address] documented as of this encounter Visit Diagnoses Diagnosis Cancer, 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
--- OUTSIDE RECORDS SUMMARY | 2024-10-30 02:28 | XMS_ITS | Encounter Summary ---
Author Organization [facility] [employer] [facility] Address [address] [place] [address] Care Team Providers Care Almond Blancher Name Role Phone Anirudh Craft MD Primary Care Provider Encounter Details Date Type Department Care Team (Late Contact Info) Description 05/30/2024 Orders Only [facility] Oncology and Hematology - Josep [address]ov[address] [place] [address] Glenn Al MD [facility] [employer] [address] [place] [address] Cancer, metastatic to bone Social History [...] (Late Contact Info) Description 12/13/2024 9:45 AM SLICING MACHINE TENDER Office Visit [facility] Oncology and Hematology - Josep [address]ov[address] [place] [address] Glenn Al MD [address] [place] [address] documented as of this encounter Visit Diagnoses Diagnosis Cancer, 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
--- OUTSIDE RECORDS SUMMARY | 2024-10-30 02:28 | XMS_ITS | Encounter Summary ---
Author Organization [facility] [employer] [facility] Address [address] [place] [address] Care Team Providers Care Human Service Worker Name Role Phone Unavailable Primary Care Provider Unavailabl e Encounter Details Date Type Department Care Team (Late Contact Info) Description 10/03/2024 Orders Only [facility] Oncology and Hematology - Josep [address] [place] [address] Glenn Al MD [facility] [employer] [address] [place] [address] Social History Tobacco Use Types Packs/Day [...] (Late Contact Info) Description 12/13/2024 9:45 AM BEEF GRADER Office Visit [facility] Oncology and Hematology - Josep [address] [place] [address] Glenn Al MD [address] [employer] [address] [place] [address] documented as of this encounter Procedures Procedure Name Priority Date/Time Associated Diagnosis Comments METHYLMALONIC ACID Routine 09/28/2024 2:18 PM BEEF GRADER documented in this encounter Results * METHYLMALONIC ACID (09/28/2024 2:18 PM BEEF GRADER) Blood Glenn Al MD CHEMISTRY ORDERABLES documented in this encounter Visit Diagnoses Not on filedocumented in this encounter
--- OUTSIDE RECORDS SUMMARY | 2024-10-30 02:28 | XMS_ITS | Encounter Summary ---
Author Organization [facility] [employer] [facility] Address [address] [place] [address] Care Team Providers Care Services Account Manager Name Role Phone Anirudh Craft MD Primary Care Provider Encounter Details Date Type Department Care Team (Late Contact Info) Description 06/13/2024 Orders Only [facility] Oncology and Hematology - Josep Giov[address] [place] [address] Glenn Al MD [facility] [employer] [address] [place] [address] Cancer, metastatic to bone Social History [...] (Late Contact Info) Description 12/13/2024 9:45 AM NEW GRAD RN Office Visit [facility] Oncology and Hematology - Josep Giov[address] [place] [address] Glenn Al MD [address] [employer] [address] [place] [address] documented as of this encounter Visit Diagnoses Diagnosis Cancer, 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
--- OUTSIDE RECORDS SUMMARY | 2024-10-30 02:28 | XMS_ITS | Encounter Summary ---
Author Organization [facility] [employer] [facility] Address [address] [place] [address] Care Team Providers Care Remelt Worker Name Role Phone Unavailable Primary Care Provider Unavailabl e Encounter Details Date Type Department Care Team (Late Contact Info) Description 09/22/2024 Orders Only [facility] Oncology and Hematology - Josep [address] [place] [address] Glenn Al MD [address] [email or web address] [address] [place] [address] Social History Tobacco Use Types Packs/Day [...] st Contact Info) Description 12/13/2024 9:45 AM HIDE WASHER Office Visit [facility] Oncology and Hematology - Josep [address] [place] [address] Glenn Al MD [address] [email or web address] [address] [place] [address] documented as of this encounter Procedures Procedure Name Priority Date/Time Associated Diagnosis Comments COMPREHENSIVE METABOLIC PANEL Routine 09/20/2024 3:12 PM HIDE WASHER BASIC METABOLIC PANEL Routine 09/20/2024 2:41 PM HIDE WASHER CBC WITH DIFFERENTIAL Routine 09/20/2024 2:04 PM HIDE WASHER documented in this encounter Results * COMPREHENSIVE METABOLIC PANEL (09/20/2024 3:12 PM HIDE WASHER) Blood Glenn Al MD CHEMISTRY ORDERABLES * BASIC METABOLIC PANEL (09/20/2024 2:41 PM HIDE WASHER) Blood Glenn Al MD CHEMISTRY ORDERABLES * CBC WITH DIFFERENTIAL (09/20/2024 2:04 PM HIDE WASHER) Blood Glenn Al MD HEMATOLOGY ORDERABLE S documented in this encounter Visit Diagnoses Not on filedocumented in this encounter
--- OUTSIDE RECORDS SUMMARY | 2024-10-30 02:28 | XMS_ITS | Encounter Summary ---
Author Organization [facility] [employer] [facility] Address [address] [place] [address] Care Team Providers Care Ornithology Teacher Name Role Phone Anirudh Craft MD Primary Care Provider [phone] Encounter Details Date Type Department Care Team (Late Contact Info) Description 03/21/2024 Orders Only [facility] Oncology and Hematology - Josep [address]ov[address] [place] [address] Glenn Al MD [address] [employer] [address] [place] [address] Cancer, metastatic to bone Social History [...] (Late Contact Info) Description 12/13/2024 9:45 AM MEDICAL BILLING ASSISTANT Office Visit [facility] Oncology and Hematology - Josep [address]ov[address] [place] [address] Glenn Al MD [address] [employer] [address] [place] [address] documented as of this encounter Visit Diagnoses Diagnosis Cancer, 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
--- OUTSIDE RECORDS SUMMARY | 2024-10-30 02:28 | XMS_ITS | Encounter Summary ---
Author Organization [facility] [employer] [facility] Address [address] [place] [address] Care Team Providers Care Biostatistician Name Role Phone Anirudh Craft MD Primary Care Provider [phone] Encounter Details Date Type Department Care Team (Late Contact Info) Description 09/28/2023 Orders Only [facility] Oncology and Hematology [facility] [address] [place] [address] Glenn Al MD [address] [place] [address] Cancer, metastatic to bone; Prostate cancer; [...] (Late Contact Info) Description 12/13/2024 9:45 AM COMMERCIAL ILLUSTRATOR Office Visit [facility] Oncology and Hematology [facility] [address] [place] [address] Glenn Al MD [address] [place] [address] documented as of this encounter Visit Diagnoses Diagnosis Cancer, 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
--- OUTSIDE RECORDS SUMMARY | 2024-10-30 02:28 | XMS_ITS | Encounter Summary ---
Author Organization [facility] [employer] [facility] Address [address] [place] [address] Care Team Providers Care Certified Medical Dosimetrist Name Role Phone Anirudh Craft MD Primary Care Provider Encounter Details Date Type Department Care Team (Late Contact Info) Description 02/29/2024 Orders Only [facility] Oncology and Hematology [facility] [address] [place] [address] Glenn Al MD [address] [employer] [address] [place] [address] Cancer, metastatic to bone; Prostate [...] Contact Info) Description 12/13/2024 9:45 AM AIR BRAKE OPERATOR Office Visit [facility] Oncology and Hematology [facility] [address] [place] [address] Glenn Al MD [address] [employer] [address] [place] [address] documented as of this encounter Visit Diagnoses Diagnosis Cancer, 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
--- OUTSIDE RECORDS SUMMARY | 2024-10-30 02:28 | XMS_ITS | Encounter Summary ---
Author Organization [facility] [employer] [facility] Address [address] [place] [address] Care Team Providers Care Lead Nurse Name Role Phone Anirudh Craft MD Primary Care Provider Encounter Details Date Type Department Care Team (Late Contact Info) Description 09/19/2024 Orders Only [facility] Oncology and Hematology - Josep [address] [place] [address] Glenn Al MD [facility] [employer] [address] [place] [address] Cancer, metastatic to bone Social History [...] (Late Contact Info) Description 12/13/2024 9:45 AM STARTER MECHANIC Office Visit [facility] Oncology and Hematology - Josep [address] [place] [address] Glenn Al MD [address] [employer] [address] [place] [address] documented as of this encounter Visit Diagnoses Diagnosis Cancer, 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
--- OUTSIDE RECORDS SUMMARY | 2024-10-30 02:28 | XMS_ITS | Encounter Summary ---
Author Organization [facility] Address [address] [place] [address] Care Team Providers Care Fish Bin Tender Name Role Phone Anirudh Craft MD Primary Care Provider [phone] Encounter Details Date Type Department Care Team (Late st Contact Info) Description 07/05/2024 External Device Data STL ABSTRACTION Provider, Abstract [...] st Contact Info) Description 12/13/2024 9:45 AM CLAY TEMPERER Office Visit [facility] Oncology and Hematology - Josep 2227 [facility] 200 [place] [address] Glenn Al MD 2227 [facility] [address] [place] [address] documented as of this encounter Visit Diagnoses Not on filedocumented in this encounter Care Teams Fish Bin Tender Relationship Specialty Start Date End Date Anirudh Craft MD 3908 [facility] 4 [place] [phone] PCP - General Internal Medicine 08/01/20 09/19/24 documented as of this encounter
--- OUTSIDE RECORDS SUMMARY | 2024-10-30 02:28 | XMS_ITS | Encounter Summary ---
Author Organization [facility] [email or web address] [facility] Address [address] [place] [address] Care Team Providers Care Shear Grinder Operator Name Role Phone Anirudh Craft MD Primary Care Provider Encounter Details Date Type Department Care Team (Late Contact Info) Description 11/23/2023 Orders Only [facility] Oncology and Hematology [facility] [address] [place] [address] Glenn Al MD [address] [place] [address] Cancer, metastatic to bone; Prostate [...] (Late Contact Info) Description 12/13/2024 9:45 AM LUMBER STRAIGHTENED Office Visit [facility] Oncology and Hematology [facility] [address] [place] [address] Glenn Al MD [address] [place] [address] documented as of this encounter Visit Diagnoses Diagnosis Cancer, 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
--- OUTSIDE RECORDS SUMMARY | 2024-10-30 02:28 | XMS_ITS | Encounter Summary ---
Author Organization [facility] [employer] [facility] Address [address] [place] [address] Care Team Providers Care Powder Cutting Operator Name Role Phone Anirudh Craft MD Primary Care Provider [phone] Encounter Details Date Type Department Care Team (Late Contact Info) Description 11/30/2023 Orders Only [facility] Oncology and Hematology - Josep [address] [place] [address] Glenn Al MD [facility] [employer] [address] [place] [address] Cancer, metastatic to bone Social History [...] (Late Contact Info) Description 12/13/2024 9:45 AM DRUM SANDER Office Visit [facility] Oncology and Hematology - Josep [address] [place] [address] Glenn Al MD [address] [employer] [address] [place] [address] documented as of this encounter Visit Diagnoses Diagnosis Cancer, 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
--- OUTSIDE RECORDS SUMMARY | 2024-10-30 02:28 | XMS_ITS | Encounter Summary ---
Author Organization [facility] [employer] [facility] Address [address] [place] [address] Care Team Providers Care Cement Kiln Operator Name Role Phone Anirudh Craft MD Primary Care Provider Encounter Details Date Type Department Care Team (Late Contact Info) Description 02/08/2024 Orders Only [facility] Oncology and Hematology - Josep [address] [place] [address] Glenn Al MD 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
--- OUTSIDE RECORDS SUMMARY | 2024-10-30 02:28 | XMS_ITS | Encounter Summary ---
Author Organization [facility] Address [address] [place] [address] Care Team Providers Care Foreign Policy Officer Name Role Phone Anirudh Craft MD Primary Care Provider [phone] Encounter Details Date Type Department Care Team [...] st Contact Info) Description 12/13/2024 9:45 AM NEWS INTERN Office Visit [facility] Oncology and Hematology - Josep 2227 [facility] 200 [place] [address] Glenn Al MD 2227 [facility] [address] [place] [address] documented as of this encounter Visit Diagnoses Not on filedocumented in this encounter Care Teams Foreign Policy Officer Relationship Specialty Start Date End Date Anirudh Craft MD 3908 [facility] 4 [place] [phone] PCP - General Internal Medicine 08/01/20 09/19/24 documented as of this encounter
--- OUTSIDE RECORDS SUMMARY | 2024-10-30 02:28 | XMS_ITS | Encounter Summary ---
Author Organization [facility] Address [address] [place] [address] Care Team Providers Care Vb Net Programmer Name Role Phone Anirudh Craft MD Primary Care Provider Encounter Details Date Type Department Care Team (Late st Contact Info) Description 12/21/2023 External Device Data STL ABSTRACTION Provider, Abstract [...] st Contact Info) Description 12/13/2024 9:45 AM COST COORDINATOR Office Visit [facility] Oncology and Hematology - Josep 2227 [facility] 200 [place] [address] Glenn Al MD 2227 [facility] [address] [place] [address] documented as of this encounter Visit Diagnoses Not on filedocumented in this encounter Care Teams Vb Net Programmer Relationship Specialty Start Date End Date Anirudh Craft MD 3908 [facility] 4 [place] [address] PCP - General Internal Medicine 08/01/20 09/19/24 documented as of this encounter
--- OUTSIDE RECORDS SUMMARY | 2024-10-30 02:28 | XMS_ITS | Encounter Summary ---
Author Organization [facility] [employer] [facility] Address [address] [place] [address] Care Team Providers Care Surtass Analyst Name Role Phone Anirudh Craft MD Primary Care Provider [phone] Reason for Visit * Reason Comments Follow Up Chemotherapy Encounter Details Date Type Department Care Team (Late st Contact Info) Description 03/17/2024 9:00 AM CDT Office Visit [facility] Oncology and Hematology - [place] [address] [place] [address] [address] [place] [address] Glenn Al MD [address] [facility] [address] [place] [address] Prostate cancer (Primary Dx) Social History Tobacco Use Types [...] Sign Reading Time Taken Comments Blood Pressure 141/61 03/17/2024 8:45 AM CDT Pulse 57 03/17/2024 8:45 AM CDT Temperature 36.2 ??C (97.2 ??F) 03/17/2024 8:39 AM CD T Respiratory Rate 18 03/17/2024 8:39 AM CDT Oxygen Saturation 93% 03/17/2024 8:39 AM CDT Inhaled Oxygen Concentration - - Weight 71.7 kg (158 lb) 03/17/2024 8:39 AM CDT Height - - Body Mass Index 26.29 06/15/2023 8:25 AM CDT documented in this encounter Progress Notes * Glenn Al MD - 03/17/2024 9:39 AM CDT HEMATOLOGY / ONCOLOGY PROGRESS NOTE [...] follow-up visit. He denies any chest pain or shortness of breath. Nobleeding and bruising. Weight and appetite stable. No other new complaints. Review of system Constitutional: Patient did not mention fevers, sweats, Patient denies any tiredness and fatigue, weight and appetite stable HEENT: Patient did not mention sinus congestion, [...] 8.5 hemoglobin 13.2 platelet 228,000 creatinine 0.7 Assessment: Plan: Patient Active Problem [...] 2023 showed 3 mm pulmonary nodule indeterminate. Last PSA from December was normal at less than 0.1. PSA is pending from today. Clinically he has been tolerating Lupron well. No signs of relapse of prostate cancer. I will see him back on every 3 months basis. Bone metastasis. He is asymptomatic. 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 History of elevated liver enzymes. Stable. Follow-up in 3 months. TOBACCO COUNSELING He is not a tobacco/nicotine user. 03/17/2024 Glenn Al MD documented in this encounter Plan of Treatment Upcoming Encounters Date Type Department Care Team (Late st Contact Info) Description 12/13/2024 9:45 AM PRESS MAINTAINER Office Visit [facility] Oncology and Hematology - [place] [address] [facility] [address] [place] [address] Glenn Al MD [address] [facility] [address] [place] [address] Scheduled Orders Name Type Priority Associated Diagnoses Orde r Schedule CBC WITH DIFFERENTIAL Lab Stat Prostate cancer Expected: 06/09/2024, Expires: 03/17/2025 COMPREHENSIVE METABOLIC PANEL Lab Stat Prostate cancer Expected: 06/09/2024, Expires: 03/17/2025 PSA Lab Routine Prostate cancer Expected: 06/09/2024, Expires: 03/17/2025 documented as of this encounter Visit Diagnoses Diagnosis Prostate cancer- Primary Malignant neoplasm of prostate documented in this encounter Care Teams Surtass Analyst Relationship Specialty Start Date End Date Anirudh Craft MD [address] [address] PCP - General Internal Medicine 08/01/20 09/19/24 documented as of this encounter
--- OUTSIDE RECORDS SUMMARY | 2024-10-30 02:29 | XMS_ITS | Encounter Summary ---
Author Organization [facility] Address [address] [place] [address] Care Team Providers Care Ornamental Metal Erector Apprentice Name Role Phone Anirudh Craft MD Primary Care Provider Reason for Visit * Reason Onset Date Comments Abnormal Lab Results 01/15/2023 Encounter Details Date Type Department Care Team (Late st Contact Info) Description 01/15/2023 Telephone [facility] Oncology and Hematology [facility] [address] [address] [place] [address] [address] Abnormal Lab Results Social History Tobacco Use Types Packs/Day Years Used Date Smoking Tobacco: Former Cigarettes Q uit: 11/02/1967 Smokeless Tobacco: Never Alcohol Use Standard Drinks/Week Comments No 0 (1 standard drink = 0.6 oz pur e alcohol) Sex and Gender Information Value Date Recorded Sex Assigned at Not on file Gender Identity Not on file Sexual Orientation Not on file COVID-19 Exposure Response Date Recorded In the last 10 days, have yo u been in contact with someone who was confirmed or suspected to have Coronavirus/COVID-19? No / Unsure 01/15/2023 9:57 AM CDT documented as of this encounter Miscellaneous Notes * Telephone Encounter - Elisha Jules RN - 01/15/2023 4:32 PM CDT CMP ordered per Dr Ayala, patient notified and says he will go to [facility]. ---- Message from Elisha Jules RN sent at 01/15/2023 4:27 PM CDT ----- Regarding: FW: Liver enzymes more elevated Contact: ----- Message ----- From: Elisha Jules RN Sent: 01/15/2023 9:22 AM CDT To: Joseph Ayala MD Subject: FW: Liver enzymes more elevated ----- Message ----- From: Garrick Ilan Trever Sent: 01/15/2023 8:41 AM CDT To: , # Subject: Liver enzymes more elevated I???d like to see if my liver enzymes have come down. Can dr Aponte order another test while I???m at [facility]? * Telephone Encounter - Brielle Ferguson RN - 01/15/2023 4:18 PM CDT ----- Message from Joseph Ayala MD sent at 01/15/2023 4:13 PM CDT ----- Can we recheck LFTs in one week? ----- Message ----- From: Brielle Ferguson RN Sent: 01/15/2023 4:07 PM CDT To: Joseph Ayala MD Pt does not have followup until 06/23 ----- Message ----- From: Joseph Ayala MD Sent: 01/15/2023 3:30 PM CDT To: Brielle Ferguson RN No hepatitis, no obstruction. I guess we'll just see if LFTs are better at next draw. ----- Message ----- From: Brielle Ferguson RN Sent: 01/15/2023 3:26 PM CDT To: Joseph Ayala MD Repeat labs and US done ----- Message ----- From: Joseph Ayala MD Sent: 01/06/2023 8:10 AM CDT To: Brielle Ferguson RN Ok, maybe he can see GI as well? Since they address liver issues often. ----- Message ----- From: Brielle Ferguson RN Sent: 01/05/2023 4:52 PM CHANGE AGENT To: Joseph Ayala MD Pt came in for repeat labwork. Liver enzymes still elevated, pt has held Zytiga for past 2 weeks. AST 94(77) and ALT 125 (103). Pt has call to general laborer also since he takes Crestor. documented in this encounter Plan of Treatment Upcoming Encounters Date Type Department Care Team (Late st Contact Info) Description 12/13/2024 9:45 AM CHANGE AGENT Office Visit [facility] Oncology and Hematology [facility] [address] [facility] [address] [place] [phone] Glenn Al MD [address] [facility] [address] [place] [address] documented as of this encounter Visit Diagnoses Not on filedocumented in this encounter Care Teams Ornamental Metal Erector Apprentice Relationship Specialty Start Date End Date Anirudh Craft MD [address] [facility] 4 [place] [phone] PCP - General Internal Medicine 08/01/20 09/19/24 documented as of this encounter
--- OUTSIDE RECORDS SUMMARY | 2024-10-30 02:29 | XMS_ITS | Encounter Summary ---
Author Organization [facility] [employer] [facility] Address [address] [place] [address] Care Team Providers Care Property Management Bookkeeper Name Role Phone Anirudh Craft MD Primary Care Provider [phone] Encounter Details Date Type Department Care Team (Late Contact Info) Description 03/26/2023 Abstract [facility] Oncology and Hematology [facility] [address] [place] [address] Layne Lopes Social History Tobacco Use Types Packs/Day Years [...] suspected to have Coronavirus/COVID-19? No / Unsure 03/05/2023 12:56 PM CDT documented as of this encounter Plan of Treatment Upcoming Encounters Date Type Department Care Team (Late Contact Info) Description 12/13/2024 9:45 AM MANAGER FINE DINING Office Visit [facility] Oncology and Hematology [facility] [address] [place] [address] Glenn Al MD [address] [facility] [address] [place] [address] documented as of this encounter Visit Diagnoses Not on filedocumented in this encounter Care Teams Property Management Bookkeeper Relationship Specialty Start Date End Date Anirudh Craft MD [address] [phone] PCP - General Internal Medicine 08/01/20 09/19/24 documented as of this encounter
--- OUTSIDE RECORDS SUMMARY | 2024-10-30 02:29 | XMS_ITS | Encounter Summary ---
Author Organization [facility] [employer] [facility] Address [address] [place] [address] Care Team Providers Care Account Retention Representative Name Role Phone Anirudh Craft MD Primary Care Provider [phone] Encounter Details Date Type Department Care Team (Late Contact Info) Description 05/25/2023 Orders Only [facility] Oncology and Hematology [facility] [address] [place] [address] Glenn Al MD [address] [employer] [address] [place] [address] Cancer, metastatic to bone; Prostate [...] (Late Contact Info) Description 12/13/2024 9:45 AM WATER QUALITY CONTROL ENGINEER Office Visit [facility] Oncology and Hematology [facility] [address] [place] [address] Glenn Al MD [address] [employer] [address] [place] [address] documented as of this encounter Visit Diagnoses Diagnosis Cancer, 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
--- OUTSIDE RECORDS SUMMARY | 2024-10-30 02:29 | XMS_ITS | Encounter Summary ---
Author Organization [facility] [employer] [facility] Address [address] [place] [address] Care Team Providers Care Analyst Market Intelligence Name Role Phone Anirudh Craft MD Primary Care Provider Encounter Details Date Type Department Care Team (Late Contact Info) Description 09/14/2023 Orders Only [facility] Oncology and Hematology [facility] [address] [place] [address] Glenn Al MD [address] [employer] [address] [place] [address] Cancer, metastatic to bone; Prostate cancer; [...] (Late Contact Info) Description 12/13/2024 9:45 AM ENDBAND SIZER Office Visit [facility] Oncology and Hematology 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
--- OUTSIDE RECORDS SUMMARY | 2024-10-30 02:29 | XMS_ITS | Encounter Summary ---
Author Organization [facility] [employer] [facility] Address [address] [place] [address] Care Team Providers Care Threat Analyst Name Role Phone Anirudh Craft MD Primary Care Provider Encounter Details Date Type Department Care Team ([facility] Contact Info) Description 03/06/2023 Orders Only [facility] Oncology and Hematology - Josep [address] [place] [address] Glenn Al MD [address] [facility] [address] [place] [address] Cancer, metastatic to bone Social History [...] (Late Contact Info) Description 12/13/2024 9:45 AM TECHNICAL TRAINING COORDINATOR Office Visit [facility] Oncology and Hematology - Josep [address] [place] [address] Glenn Al MD [address] [facility] [address] [place] [address] documented as of this encounter Visit Diagnoses Diagnosis Cancer, 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
--- OUTSIDE RECORDS SUMMARY | 2024-10-30 02:29 | XMS_ITS | Encounter Summary ---
Author Organization [facility] Address [address] [place] [address] Care Team Providers Care Promotion Producer Name Role Phone Anirudh Craft MD Primary Care Provider [phone] Reason for Visit * Reason Onset Date Comments Lab Results 01/27/2023 Encounter Details Date Type Department Care Team (Late st Contact Info) Description 01/27/2023 Telephone [facility] Oncology and Hematology [facility] [address] [address] [place] [address] [address] Lab Results Social History Tobacco Use Types [...] encounter Miscellaneous Notes * Telephone Encounter - Brielle Ferguson RN - 01/27/2023 2:45 PM CDT Pt does not wish to rechallenge Zytiga at this time. Pt plans to transfer care to Dr. Al in [place], [place]. Brielle Ferguson RN ----- Message from Joseph Ayala MD sent at 01/27/2023 2:27 PM CDT ----- Ok, if he just held Zytiga, is he willing to rechallenge and see if LFTs stay improved or worsen again? ----- Message ----- From: Brielle Ferguson RN Sent: 01/27/2023 2:12 PM CDT To: Joseph Ayala MD I believe just Zytiga but I will call him to review ----- Message ----- From: Joseph Ayala MD Sent: 01/27/2023 1:00 PM CDT To: Brielle Ferguson RN Did he ever hold crestor, or just Zytiga? ----- Message ----- From: Brielle Ferguson RN Sent: 01/27/2023 12:53 PM CDT To: Joseph Ayala MD Did you see lab results from yesterday? documented in this encounter Plan of Treatment Upcoming Encounters Date Type Department Care Team (Late st Contact Info) Description 12/13/2024 9:45 AM RIPRAP WORKER Office Visit [facility] Oncology and Hematology [facility] [address] [place] [address] [address] [place] [address] Glenn Al MD [address] [facility] [address] [place] [address] documented as of this encounter Visit Diagnoses Not on filedocumented in this encounter Care Teams Promotion Producer Relationship Specialty Start Date End Date Anirudh Craft MD [address] [facility] 4 [place] [phone] PCP - General Internal Medicine 08/01/20 09/19/24 documented as of this encounter
--- OUTSIDE RECORDS SUMMARY | 2024-10-30 02:29 | XMS_ITS | Encounter Summary ---
Author Organization [facility] Address [address] [facility] [address] Fernándezn: Epic Prelude ADT ESTHER WILSON [address] Care Team Providers Care Nursery Supervisor Name Role Phone Anirudh Craft MD Primary Care Provider Encounter Details Date Type Department Care Team (Latest Contact Info) Description 03/05/2023 Travel Social History Tobacco Use Types Packs/Day Years [...] st Contact Info) Description 12/13/2024 9:45 AM STAFF TECHNOLOGIST Office Visit [facility] Oncology and Hematology - Josep [address] [facility] [address] [place] [address] Glenn Al MD [address] [facility] [address] [place] [address] documented as of this encounter Visit Diagnoses Not on filedocumented in this encounter Care Teams Nursery Supervisor Relationship Specialty Start Date End Date Anirudh Craft MD [address] [address] PCP - General Internal Medicine 08/01/20 09/19/24 documented as of this encounter
--- OUTSIDE RECORDS SUMMARY | 2024-10-30 02:29 | XMS_ITS | Encounter Summary ---
Author Organization [facility] [employer] [facility] Address [address] [place] [address] Care Team Providers Care Sequins Stringer Name Role Phone Anirudh Craft MD Primary Care Provider Reason for Visit * Reason Comments Follow Up Encounter Details Date Type Department Care Team (Late st Contact Info) Description 06/15/2023 8:30 AM CDT Office Visit [facility] Oncology and Hematology - [place] [address] [place] [address] [address] [place] [address] Glenn Al MD [address] [facility] [address] [place] [address] Cancer, metastatic to bone (Primary [...] Sign Reading Time Taken Comments Blood Pressure 130/57 06/15/2023 8:25 AM CDT Pulse 60 06/15/2023 8:25 AM CDT Temperature 36.5 ??C (97.7 ??F) 06/15/2023 8:25 AM CD T Respiratory Rate 10 06/15/2023 8:25 AM CDT Oxygen Saturation 100% 06/15/2023 8:25 AM CDT Inhaled Oxygen Concentration - - Weight 70.3 kg (155 lb) 06/15/2023 8:25 AM CDT Height 165.1 cm (5' 5 ) 06/15/2023 8:25 AM CDT Body Mass Index 25.79 06/15/2023 8:25 AM CDT documented in this encounter Progress Notes * Glenn Al MD - 06/15/2023 12:43 PM CDT HEMATOLOGY / ONCOLOGY PROGRESS NOTE Patient Identification: Name: Ilan Mccauley Age: 82 y.o. Sex: male : 1940 DIAGNOSIS Metastatic prostate cancer with bone involvement status post left posterior acetabulum bone biopsy done in November 2019. CURRENT TREATMENT Eligard every 3-month basis started in my office on March 23 TREATMENT HISTORY SUBJECTIVE Patient came to the office for follow-up visit. He has been tolerating treatment with Eligard well.He denies any bone pain. Denies any weight loss. Denies any chest pain or shortness of breath. No other new complaints. Review of system Constitutional: Patient did not mention fevers, sweats, fatigue, malaise, weight loss HEENT: Patient did not mention sinus congestion, [...] lumps, bumps or rashes. 12 point review system was reviewed Objective: Vital signs in [...] 0.5 WBC 7.7 hemoglobin 13.5 platelet 204,000 @IMAGEIMP@ Assessment: Plan: Patient Active Problem List Diagnosis [...] Lupron in my office on March 23. PSA was less than 0.1. He is clinically asymptomatic. We will order CT chest abdomen and pelvis in 3 months. Follow-up in 3 months. Continue treatment with Lupron. Bone metastasis. He is asymptomatic. Xgeva was permanently discontinued in September 2020 due to dental disease. History of elevated liver enzymes. Liver enzymes are normal. Zytiga was discontinued due to elevated liver enzymes. 06/15/2023 Glenn Al MD documented in this encounter Plan of Treatment Upcoming Encounters Date Type Department Care Team (Late st Contact Info) Description 12/13/2024 9:45 AM BRIDGE SAW OPERATOR Office Visit [facility] Oncology and Hematology [facility] [address] [facility] [address] [place] [phone] Glenn Al MD [address] [facility] [address] [place] [address] documented as of this encounter Visit Diagnoses Diagnosis Cancer, metastatic to bone- Primary Secondary malignant neoplasm of bone and bone marrow documented in this encounter Care Teams Sequins Stringer Relationship Specialty Start Date End Date Anirudh Craft MD [address] [facility] 4 [place] [phone] PCP - General Internal Medicine 08/01/20 09/19/24 documented as of this encounter
--- OUTSIDE RECORDS SUMMARY | 2024-10-30 02:29 | XMS_ITS | Encounter Summary ---
Author Organization [facility] Address [address] [place] [address] Care Team Providers Care Labeling Strategist Name Role Phone Anirudh Craft MD Primary Care Provider Encounter Details Date Type Department Care Team (Late Contact Info) Description 02/03/2023 Orders Only [facility] ONCOLOGY AND HEMATOLOGY - [place] [address] [facility] [address] [place] [address] Kailyn Blood MD [address] [facility] [address] [place] [address] Cancer, metastatic to bone (Primary Dx); Prostate cancer Social History Tobacco Use Types Packs/Day Years [...] AM CDT documented as of this encounter Plan of Treatment Upcoming Encounters Date Type Department Care Team (Late st Contact Info) Description 12/13/2024 9:45 AM PATIENT SUPPORT REPRESENTATIVE Office Visit [facility] Oncology and Hematology - [place] [facility] [address] [place] [address] Glenn Al MD [address] [facility] [address] [place] [address] documented as of this encounter Visit Diagnoses Diagnosis Cancer, metastatic to bone- Primary Secondary malignant neoplasm of bone and bone marrow Prostate cancer Malignant neoplasm of prostate documented in this encounter Care Teams Labeling Strategist Relationship Specialty Start Date End Date Anirudh Craft MD [address] [address] PCP - General Internal Medicine 08/01/20 09/19/24 documented as of this encounter
--- OUTSIDE RECORDS SUMMARY | 2024-10-30 02:29 | XMS_ITS | Encounter Summary ---
Author Organization [facility] [employer] [facility] Address [address] [place] [address] Care Team Providers Care Microsoft Dynamics Ax Developer Name Role Phone Anirudh Craft MD Primary Care Provider [phone] Reason for Visit * Reason Comments Establish Care Encounter Details Date Type Department Care Team (Late st Contact Info) Description 03/05/2023 1:30 PM CDT Office Visit [facility] Oncology and Hematology - [place] [address] [place] [address] [address] [place] [address] Glenn Al MD [address] [facility] [address] [place] [address] Cancer, metastatic to bone (Primary [...] PM CDT documented as of this encounter Last Filed Vital Signs Vital Sign Reading Time Taken Comments Blood Pressure 134/62 03/05/2023 1:06 PM CDT Pulse 76 03/05/2023 1:06 PM CDT Temperature 36.8 ??C (98.2 ??F) 03/05/2023 1:06 PM CD T Respiratory Rate 12 03/05/2023 1:06 PM CDT Oxygen Saturation 100% 03/05/2023 1:06 PM CDT Inhaled Oxygen Concentration - - Weight 68.9 kg (152 lb) 03/05/2023 1:06 PM CDT Height - - Body Mass Index 24.53 12/24/2022 9:59 AM BLANKET WEAVER documented in this encounter Progress Notes * Glenn Al MD - 03/05/2023 2:39 PM CDT Hematology-oncology consult Note Requesting Physician Anirudh Craft MD Primary Care Physician Anirudh Craft MD Problem list Patient Active Problem List Diagnosis Code BPH (benign prostatic hyperplasia) N40.0 Erectile dysfunction N52.9 Hyperlipidemia E78.5 Special screening for malignant neoplasm of prostate Z12.5 Malaise and fatigue R53.81, R53.83 Special screening for malignant neoplasms, colon Z12.11 Allergic rhinitis J30.9 HTN (hypertension) I10 Renal artery stenosis I70.1 Family history of prostate cancer Z80.42 Elevated PSA R97.20 Personal history of prostate cancer Z85.46 Leukocytosis D72.829 Fever R50.9 ARF (acute renal failure) N17.9 Hyponatremia E87.1 Severe sepsis A41.9, R65.20 E-coli UTI N39.0, B96.20 Anemia, chronic disease D63.8 Complicated UTI (urinary tract infection) N39.0 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 Measurable Disease ? Reason for Visit Ilan Mccauley is a 82 y.o. male who was referred for consultation for metastatic prostate cancer. History of present illness This is a pleasant 82-year-old male who was originally diagnosed with early stage prostate cancer in July 2012 status post radical prostatectomy. He was T3a N0 with Valley score 4+4 =8 and received no adjuvant therapy at that time. He was subsequently developed relapse with bone metastasis to the left acetabulum in November [address] scan showed sclerotic left acetabulum les ion. Biopsy was performed that came back positive for prostate cancer. PSA was 14.7 at that time. Patient was started on Lupron and Xgeva. Xgeva was was discontinued in September 2020 due to dental disease. On June 2020 CT chest showed right lower lobe nodule. Patient was also started on Zytiga that he took for 3 months duration and discontinued 6 weeks ago due to increased liver function test. He came into the office to establish practice as he lives near our office. He was last seen by Dr. Ayala. He denies any bone pain. Complain of some hot flashes. His last Lupron injection was on and next dose is due on March 23. Past Medical History Past Medical History: Diagnosis Date Allergic rhinitis BPH (benign prostatic hyperplasia) Calculus of kidney currently found through cat scan Cancer Community acquired pneumonia Erectile dysfunction Family history of prostate cancer m gf HTN (hypertension) 2009 Hyperlipidemia diet controlled Personal history of prostate cancer 06/13 s/p removal Renal artery stenosis 06/12 mild on R Surgical History Past Surgical History: Procedure Laterality Date BIOPSY PROSTATE 06/13 cancer CHG ANES COLONOSCOPY,BIOPSY 2006 polyps CHG ANES COLONOSCOPY,BIOPSY 09/12 wnl, no polyps. tics HOLTER MONITOR wnl HX APPENDECTOMY age 14 HX HEART CATHETERIZATION PA LAPS SURG [id number] RPBIC RAD W/NRV SPARING ROBOT 07/20/2012 PROSTATECTOMY RADICAL DAVINCI SI LAPAROSCOPIC performed by Giancarlo Azar MD at [facility] PA UNLISTED LAPAROSCOPY PX LYMPHATIC SYSTEM 07/20/2012 LYMPH NODE DISSECTION DAVINCI SI LAPAROSCOPIC performed by Giancarlo Azar MD at [facility] STRESS ECHO W CONTRAST 06/12 wnl US RENAL + DOPPLER 06/12 R renal art stenosis L ok Medications Current Outpatient Medications Medication Sig Dispense Refill prednisoLONE 5 mg tablet Take one tablet by mouth daily 30 Tablet 11 abiraterone (ZYTIGA) 250 mg tablet Take 4 Tablets (1,000 mg) by mouth daily before breakfast. 120 Tablet 5 albuterol sulfate 90 mcg/Actuation inhaler Take 2 Puffs by inhalation every 4 hours as needed for Shortness of Breath. - PLEASE CALL TO SET UP A 2021 FOLLOW UP APPOINTMENT FOR ANY FURTHER REFILLS - 8.5 Gram 0 coenzyme Q10 100 mg Capsule Take 100 mg by mouth. rosuvastatin (CRESTOR) 20 mg tablet Take 10 mg by mouth daily at bedtime. 10MG NOW PER PT amLODIPine (NORVASC) 5 mg tablet Take 5 mg by mouth daily. No current facility-administered medications for this visit. Allergies Allergies Allergen Reactions Codeine Nausea and Vomiting Makes patient extremely ill Nebivolol Bradycardia Immunizations: Immunization History Administered Date(s) Administered (SPIKEVAX) (12 YRS UP PRIMARY SERIES) COVID-19 VACCINE - [id number]-[id number](PF) 100 MCG/0.5 ML IM SUSP 02/03/2022 Influenza Seasonal Unspecified Formulation IM 06/27/2013, 07/03/2015, 08/02/2020, 08/05/2021 Family History Family History Problem Relation Name Age of Onset Unknown Father Hypertension Mother Stroke Mother Heart Disease Maternal Grandmother Cancer Maternal Grandfather prostate Social History Social History Tobacco Use Smoking status: Former Types: Cigarettes Quit date: 11/02/1967 Years since quittin.3 Smokeless tobacco: Never Substance Use Topics Alcohol use: No Review of Systems Constitutional: Patient did not mention fever; no night sweats; no anorexia; no weight loss; no fatique, complain of hot flashes NEENT: Patient did not mention headache; no change in vision; no change in hearing; no sore throat;no dysphagia Respiratory: Patient did not mention shortness of breath; no pleuritic chest pain; no cough; no hemoptysis Cardiac: Patient did not mention cardiac-like chest pain; no palpitations; no orthopnea; no PND; noDOE GI: Patient did not mention abdominal pain; no nausea; no vomiting; no diarrhea; no hematochezia; no melena : Patient did not mention dysuria; no frequency; no hesitancy; no hematuria CLOTH NAPPING SUPERVISOR: Musculosketetal: Patient did not mention bone pain; no arthralgia; no joint swelling; no myalgia; Skin: Patient did not mention pruritis; no rash; no petechiae; no ecchymoses Endocrine: Patient did not mention polydipsia; no polyuria; no unusual weight gain Neuro: Patient did not mention headache; no change in vision; no sensory changes; no muscle weakness; no confusion; no seizures Psych: Patient did not mention anxiety; no depression; Physical Exam Vitals: As per nursing note Constitutional: Well developed, well nourished, no acute distress, non-toxic appearance Teeth and gum. No signs of infection or swelling. Eyes: PERRL, conjunctiva normal HEENT: Atraumatic, external ears normal, nose normal, oropharynx moist, no pharyngeal exudates. no sinus tenderness Neck- normal range of motion, no tenderness, supple Respiratory: No respiratory distress, normal breath sounds, no rales, no wheezing Cardiovascular: Normal rate, normal rhythm, no murmurs, no gallops, no rubs GI: Soft, nondistended, normal bowel sounds, nontender, no splenomegaly, no hepatomegaly, no mass, no rebound, no guarding : No costovertebral angle tenderness Musculoskeletal: No edema, no tenderness, no deformities. Back- no tenderness Integument: Well hydrated, no rash, Digits and nails inspection normal Lymphatic: No lymphadenopathy noted Neurologic: Alert & oriented x 3, CN 2-12 normal, normal motor function, normal sensory function, no focal deficits noted Psychiatric: Speech and behavior appropriate ? labs No results found for this or any previous visit (from the past 24 hour(s)). Pathology ? Imaging & Other Studies Performance Status? ECOG performance status 0 Assessment / Plan: ? Metastatic prostate cancer with bone involvement. Patient was originally diagnosed with T3AN0 Valley score 4+4 = 8 prostate cancer status post radical prostatectomy done in July 2012 with no further adjuvant therapy. In November [address] scan done due to rising PSA of 14.7 that showed left posterior acetabulum lesion. Biopsy was performed came back positive for prostate cancer. PET scan also showed right lower lobe lung nodule with 1.5 cm size and SUV of 2.9. He was started on Lupron which she has been continuing. He was started on Zytiga on December 2021 but discontinued in December 2022 due to rising liver enzymes. His last PSA was less than 0.1. At this time we will obtain baseline labs that will include CBC, CMP and PSA. We will resume Lupron injection on every 3-monthbasis with the next dose due on March 23. Bone metastasis. Xgeva was was permanently discontinued due to dental disease in September 2020. Elevated liver enzymes. We will check liver enzymes today. Thank you very much for allowing me to participate in Ilan Mccauley's evaluation and management. Please feel free to contact if I can be of any further assistance in your patient???s care requiring hematology or oncology evaluation. Sincerely, ? ? Glenn Al M.D. cell TOBACCO COUNSELING He is not a tobacco user. Glenn Al MD ,03/05/2023 2:39 PM ? Total time spent 60 minutes, two third of the total time spent counseling patient [id number]. CC:?Anirudh Craft MD documented in this encounter Plan of Treatment Upcoming Encounters Date Type Department Care Team (Late st Contact Info) Description 12/13/2024 9:45 AM BLANKET WEAVER Office Visit [facility] Oncology and Hematology [facility] [address] [facility] [address] [place] [address] Glenn Al MD [address] [facility] [address] [place] [address] documented as of this encounter Visit Diagnoses Diagnosis Cancer, metastatic to bone- Primary Secondary malignant neoplasm of bone and bone marrow documented in this encounter Care Teams Microsoft Dynamics Ax Developer Relationship Specialty Start Date End Date Anirudh Craft MD [address] [facility] [address] [place] [address] PCP - General Internal Medicine 08/01/20 09/19/24 documented as of this encounter
--- OUTSIDE RECORDS SUMMARY | 2024-10-30 02:29 | XMS_ITS | Encounter Summary ---
Author Organization [facility] [employer] [facility] Address [address] [place] [address] Care Team Providers Care County Director Welfare Name Role Phone Anirudh Craft MD Primary Care Provider Reason for Visit * Reason Comments Follow Up Encounter Details Date Type Department Care Team (Late st Contact Info) Description 09/23/2023 10:00 AM SHIRRING MACHINE OPERATOR Office Visit [facility] Oncology and Hematology - [place] [address] [place] [address] Glenn Al MD [address] [facility] [address] [place] [address] Cancer, metastatic to bone (Primary [...] Sign Reading Time Taken Comments Blood Pressure 115/55 09/23/2023 10:17 AM SHIRRING MACHINE OPERATOR Pulse 55 09/23/2023 10:17 AM SHIRRING MACHINE OPERATOR Temperature - - Respiratory Rate 10 09/23/2023 10:17 AM SHIRRING MACHINE OPERATOR Oxygen Saturation 99% 09/23/2023 10:17 AM SHIRRING MACHINE OPERATOR Inhaled Oxygen Concentration - - Weight 69.9 kg (154 lb) 09/23/2023 10:17 AM SHIRRING MACHINE OPERATOR Height - - Body Mass Index 25.63 06/15/2023 8:25 AM CDT documented in this encounter Progress Notes * Glenn Al MD - 09/23/2023 12:27 PM CST HEMATOLOGY / ONCOLOGY PROGRESS NOTE Patient Identification: Name: Ilan Mccauley Age: 83 y.o. Sex: male : 1940 DIAGNOSIS Metastatic prostate cancer with bone involvement status post left posterior acetabulum bone biopsy done in November 2019. CURRENT TREATMENT Eligard every 3-month basis started in my office on March 23 TREATMENT HISTORY SUBJECTIVE Patient came to the office for follow-up visit and Eligard injection. He completely asymptomatic without any bone pain. No bleeding and bruising. Weight and appetite stable. No [...] 35.3 WBC 7.7 hemoglobin 14 platelet 222,000 Assessment: Plan: Patient Active Problem List Diagnosis [...] Lupron in my office on March 23. Labs show stable PSA of less than 0.1. CT scan chest abdomen pelvis done on September 14 showed 3 mmpulmonary nodule indeterminate. We will repeat CT scan in 6 months. Patient requested to change Eligard treatment to every 6 months basis and we will change it to every 6-month basis. I will see him back in 3 months with repeat labs. Bone metastasis. He is asymptomatic and Xgeva has been permanently discontinued in September 2020 due to dental disease. History of liver enzymes. Liver enzymes are normal now. Follow-up in 3 months. 09/23/2023 Glenn Al MD RING MACHINE OPERATOR documented in this encounter Plan of Treatment Upcoming Encounters Date Type Department Care Team (Late st Contact Info) Description 12/13/2024 9:45 AM SHIRRING MACHINE OPERATOR Office Visit [facility] Oncology and Hematology [facility] [address] [facility] [address] [place] [address] Glenn Al MD [address] [facility] [address] [place] [address] documented as of this encounter Visit Diagnoses Diagnosis Cancer, metastatic to bone- Primary Secondary malignant neoplasm of bone and bone marrow documented in this encounter Care Teams County Director Welfare Relationship Specialty Start Date End Date Anirudh Craft MD [address] [facility] 4 [place] [address] PCP - General Internal Medicine 08/01/20 09/19/24 documented as of this encounter
--- OUTSIDE RECORDS SUMMARY | 2024-10-30 02:29 | XMS_ITS | Encounter Summary ---
Author Organization [facility] [employer] [facility] Address [address] [place] [address] Care Team Providers Care Job Service Specialist Name Role Phone Anirudh Craft MD Primary Care Provider [phone] Encounter Details Date Type Department Care Team ([facility] Contact Info) Description 03/31/2023 Orders Only [facility] Oncology and Hematology [facility] [address] [place] [address] [place], [place] Cancer, metastatic to bone; Prostate cancer; Renal [...] (Late Contact Info) Description 12/13/2024 9:45 AM EXPANSION JOINT BUILDER Office Visit [facility] Oncology and Hematology [facility] [address] [place] [address] Glenn Al MD [address] [facility] [address] [place] [address] documented as of this encounter Visit Diagnoses Diagnosis Cancer, 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
--- OUTSIDE RECORDS SUMMARY | 2024-10-30 02:29 | XMS_ITS | Encounter Summary ---
Author Organization [facility] Address [address] [place] [address] Care Team Providers Care Wire Threader Name Role Phone Anirudh Craft MD Primary Care Provider Encounter Details Date Type Department Care Team (Late Contact Info) Description 02/10/2023 Specialty Pharmacy [facility] [address] [facility] [address] [place] [address] Dora Huerta, PHARMACIST Social History Tobacco Use Types Packs/Day Years [...] st Contact Info) Description 12/13/2024 9:45 AM STUDIO MUSICIAN Office Visit [facility] Oncology and Hematology - [place] [address] [facility] [address] [place] [address] Glenn Al MD [address] [facility] [address] [place] [address] documented as of this encounter Visit Diagnoses Not on filedocumented in this encounter Care Teams Wire Threader Relationship Specialty Start Date End Date Anirudh Craft MD [address] [phone] PCP - General Internal Medicine 08/01/20 09/19/24 documented as of this encounter
--- OUTSIDE RECORDS SUMMARY | 2024-10-30 02:29 | XMS_ITS | Encounter Summary ---
Author Organization [facility] [employer] [facility] Address [address] [place] [address] Care Team Providers Care Process Expert Name Role Phone Anirudh Craft MD Primary Care Provider [phone] Encounter Details Date Type Department Care Team (Late Contact Info) Description 08/31/2023 Orders Only [facility] Oncology and Hematology [facility] [address] [place] [address] Glenn Al MD [address] [employer] [address] [place] [address] Cancer, metastatic to bone; Prostate cancer; [...] (Late Contact Info) Description 12/13/2024 9:45 AM NATURAL GAS TECHNICIAN Office Visit [facility] Oncology and Hematology [facility] [address] [place] [address] Glenn Al MD [address] [place] [address] documented as of this encounter Visit Diagnoses Diagnosis Cancer, 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
--- OUTSIDE RECORDS SUMMARY | 2024-10-30 02:29 | XMS_ITS | Encounter Summary ---
Author Organization [facility] [email or web address] [facility] Address [address] [place] [address] Care Team Providers Care Wooden Boat Builder Name Role Phone Anirudh Craft MD Primary Care Provider [phone] Encounter Details Date Type Department Care Team (Late Contact Info) Description 09/23/2023 Orders Only [facility] Oncology and Hematology - [place] [address] [place] [address] Glenn Al MD [address] [employer] [address] [place] [address] Social History Tobacco Use Types [...] st Contact Info) Description 12/13/2024 9:45 AM HARDWARE TEST ENGINEER Office Visit [facility] Oncology and Hematology - [place] [address] [place] [address] Glenn Al MD [address] [employer] [address] [place] [address] documented as of this encounter Procedures Procedure Name Priority Date/Time Associated Diagnosis Comments COMPREHENSIVE METABOLIC PANEL Routine 09/22/2023 10:30 AM HARDWARE TEST ENGINEER VITAMIN D 25 HYDROXY Routine 09/22/2023 9:49 AM HARDWARE TEST ENGINEER documented in this encounter Results * COMPREHENSIVE METABOLIC PANEL (09/22/2023 10:30 AM HARDWARE TEST ENGINEER) Blood Glenn Al MD CHEMISTRY ORDERABLES * VITAMIN D 25 HYDROXY (09/22/2023 9:49 AM HARDWARE TEST ENGINEER) Blood Glenn Al MD CHEMISTRY ORDERABLES documented in this encounter Visit Diagnoses Not on filedocumented in this encounter Care Teams Wooden Boat Builder Relationship Specialty Start Date End Date Anirudh Craft MD [address] [phone] PCP - General Internal Medicine 08/01/20 09/19/24 documented as of this encounter
--- OUTSIDE RECORDS SUMMARY | 2024-10-30 02:29 | XMS_ITS | Encounter Summary ---
Author Organization [facility] [employer] [facility] Address [address] [place] [address] Care Team Providers Care Banquet Server Name Role Phone Anirudh Craft MD Primary Care Provider Encounter Details Date Type Department Care Team (Late Contact Info) Description 04/07/2023 Orders Only [facility] Oncology and Hematology - [place] [address] [place] [address] Glenn Al MD [address] [place] [address] Vitamin D deficiency (Primary Dx) Social History Tobacco Use Types [...] (Late Contact Info) Description 12/13/2024 9:45 AM ASSEMBLER CONVERTIBLE TOP Office Visit [facility] Oncology and Hematology - [place] [address] [place] [address] Glenn Al MD [address] [place] [address] Scheduled Orders Name Type Priority Associated Diagnoses Orde r Schedule VITAMIN D 25 HYDROXY Lab Routine Vitamin D deficiency Ordered: 04/07/2023 documented as of this encounter Visit Diagnoses Diagnosis Vitamin D deficiency- Primary Unspecified vitamin D deficiency documented in this encounter Care Teams Banquet Server Relationship Specialty Start Date End Date Anirudh Craft MD [address] [facility] 4 [place] [address] PCP - General Internal Medicine 08/01/20 09/19/24 documented as of this encounter
--- OUTSIDE RECORDS SUMMARY | 2024-10-30 02:29 | XMS_ITS | Encounter Summary ---
Author Organization [facility] [employer] [facility] Address [address] [place] [address] Care Team Providers Care Sports Recruiter Name Role Phone Anirudh Craft MD Primary Care Provider Encounter Details Date Type Department Care Team (Late Contact Info) Description 09/15/2023 Orders Only [facility] Oncology and Hematology - [place] [address] [place] [address] Glenn Al MD [address] [place] [address] Social History Tobacco Use Types [...] st Contact Info) Description 12/13/2024 9:45 AM SENIOR BUDGET ANALYST Office Visit [facility] Oncology and Hematology - [place] [address] [place] [address] Glenn Al MD [address] [place] [address] documented as of this encounter Procedures Procedure Name Priority Date/Time Associated Diagnosis Comments CT CHEST ABDOMEN PELVIS W CONT Routine 09/14/2023 8:56 AM SENIOR BUDGET ANALYST documented in this encounter Results * CT CHEST ABDOMEN PELVIS W CONT (09/14/2023 8:56 AM SENIOR BUDGET ANALYST) Anatomical Region Laterality Modality Chest Other Glenn Al MD CT ORDERABLES documented in this encounter Visit Diagnoses Not on filedocumented in this encounter Care Teams Sports Recruiter Relationship Specialty Start Date End Date Anirudh Craft MD [address] [phone] PCP - General Internal Medicine 08/01/20 09/19/24 documented as of this encounter
--- OUTSIDE RECORDS SUMMARY | 2024-10-30 02:29 | XMS_ITS | Encounter Summary ---
Author Organization [facility] [employer] [facility] Address [address] [place] [address] Care Team Providers Care Supervisor Mill Name Role Phone Anirudh Craft MD Primary Care Provider [phone] Encounter Details Date Type Department Care Team (Late Contact Info) Description 03/05/2023 Orders Only [facility] Oncology and Hematology - [place] [address] [place] [address] Glenn Al MD [address] [facility] [address] [place] [address] Cancer, metastatic to bone Social [...] (Late Contact Info) Description 12/13/2024 9:45 AM OCEANOGRAPHER ASSISTANT Office Visit [facility] Oncology and Hematology - [place] [address] [place] [address] Glenn Al MD [address] [facility] [address] [place] [address] documented as of this encounter Visit Diagnoses Diagnosis Cancer, 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
--- OUTSIDE RECORDS SUMMARY | 2024-10-30 02:29 | XMS_ITS | Encounter Summary ---
Author Organization [facility] [employer] [facility] Address [address] [place] [address] Care Team Providers Care Fire Prevention Officer Name Role Phone Anirudh Craft MD Primary Care Provider Encounter Details Date Type Department Care Team (Late Contact Info) Description 05/11/2023 Orders Only [facility] Oncology and Hematology [facility] [address] [place] [address] Glenn Al MD [address] [employer] [address] [place] [address] Cancer, metastatic to bone; Prostate cancer; [...] (Late Contact Info) Description 12/13/2024 9:45 AM DRILLING MACHINE OPERATOR Office Visit 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
--- OUTSIDE RECORDS SUMMARY | 2024-10-30 02:29 | XMS_ITS | Encounter Summary ---
Author Organization [facility] [employer] [facility] Address [address] [place] [address] Care Team Providers Care Drafter Name Role Phone Anirudh Craft MD Primary Care Provider Encounter Details Date Type Department Care Team (Late Contact Info) Description 07/20/2023 Orders Only [facility] Oncology and Hematology [facility] [address] [place] [address] Glenn Al MD [address] [address] [place] [address] Cancer, metastatic to bone; Prostate cancer; [...] (Late Contact Info) Description 12/13/2024 9:45 AM GAS SCRUBBER OPERATOR Office Visit [facility] Oncology and Hematology [facility] [address] [place] [address] Glenn Al MD [address] [place] [address] documented as of this encounter Visit Diagnoses Diagnosis Cancer, 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
--- OUTSIDE RECORDS SUMMARY | 2024-10-30 02:29 | XMS_ITS | Encounter Summary ---
Author Organization [facility] Address [address] [place] [address] Care Team Providers Care Major Account Representative Name Role Phone Anirudh Craft MD Primary Care Provider Encounter Details Date Type Department Care Team (Late Contact Info) Description 01/23/2023 Orders Only [facility] Oncology and Hematology [facility] [address] [address] [place] [address] [address] Malignant neoplasm of parotid gland (Primary Dx); Cancer, metastatic to bone Social History Tobacco [...] st Contact Info) Description 12/13/2024 9:45 AM MANGANESE HEATER Office Visit [facility] Oncology and Hematology [facility] [address] [place] [phone] Glenn Al MD [address] [facility] [address] [place] [address] documented as of this encounter Visit Diagnoses Diagnosis 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
--- OUTSIDE RECORDS SUMMARY | 2024-10-30 02:29 | XMS_ITS | Encounter Summary ---
Author Organization [facility] Address [address] [place] [address] Care Team Providers Care Manager Card Name Role Phone Anirudh Craft MD Primary Care Provider [phone] Reason for Visit * Reason Onset Date Comments Nurse Navigation 05/22/2023 Encounter Details Date Type Department Care Team (Late st Contact Info) Description 05/22/[address] [facility] Oncology and Hematology [facility] [address] [address] [place] [address] [place] [address] Nurse Navigation Social History Tobacco Use Types Packs/Day Years [...] encounter Miscellaneous Notes * Telephone Encounter - Conchis Ramos NP - 05/22/2023 3:16 PM CDT Nurse Navigation Note: Returned pt call. He is inquiring about a oncology nurse navigator at [facility]. Aware ONN will attempt to refer to ONN. He voiced understanding. Answered all questions to his satisfaction. Will continue to follow. documented in this encounter Plan of Treatment Upcoming Encounters Date Type Department Care Team (Late st Contact Info) Description 12/13/2024 9:45 AM SUPERVISOR METAL FURNITURE ASSEMBLY Office Visit [facility] Oncology and Hematology - [place] 2[address] [facility] 200 [place] [address] Glenn Al MD [address] [facility] [address] [place] [address] documented as of this encounter Visit Diagnoses Not on filedocumented in this encounter Care Teams Manager Card Relationship Specialty Start Date End Date Anirudh Craft MD 3908 [facility] 4 [place] [address] PCP - General Internal Medicine 08/01/20 09/19/24 documented as of this encounter
--- OUTSIDE RECORDS SUMMARY | 2024-10-30 02:29 | XMS_ITS | Encounter Summary ---
Author Organization [facility] [employer] [place] [facility] Address [address] [place] [address] Care Team Providers Care Policy Services Representative Name Role Phone Anirudh Craft MD Primary Care Provider Encounter Details Date Type Department Care Team (Late Contact Info) Description 03/05/2023 Orders Only [facility] Oncology and Hematology - [place] [address] [place] [address] Glenn Al MD [address] [facility] [address] [place] [address] Cancer, metastatic to bone (Primary [...] (Late Contact Info) Description 12/13/2024 9:45 AM INSURANCE CUSTOMER SERVICE SPECIALIST Office Visit [facility] Oncology and Hematology - [place] [address] [place] [address] Glenn Al MD [address] [facility] [address] [place] [address] Scheduled Orders Name Type Priority Associated Diagnoses Orde r Schedule CBC WITH DIFFERENTIAL Lab Routine Cancer, metastatic to bone Expected: 03/05/2023, Expires: 03/05/2024 COMPREHENSIVE METABOLIC PANEL Lab Routine Cancer, metastatic to bone Expected: 03/05/2023, Expires: 03/05/2024 PSA Lab Routine Cancer, metastatic to bone Expected: 03/05/2023, Expires: 03/04/2024 documented as of this encounter Visit Diagnoses Diagnosis Cancer, metastatic to bone- Primary Secondary malignant neoplasm of bone and bone marrow documented in this encounter Care Teams Policy Services Representative Relationship Specialty Start Date End Date Anirudh Craft MD 3[address] [facility] 4 [place] [address] PCP - General Internal Medicine 08/01/20 09/19/24 documented as of this encounter
--- OUTSIDE RECORDS SUMMARY | 2024-10-30 02:29 | XMS_ITS | Encounter Summary ---
Author Organization [facility] Address [address] [place] [address] Care Team Providers Care Aeronautical Products Sales Engineer Name Role Phone Anirudh Craft MD Primary Care Provider [phone] Reason for Visit * Reason Onset Date Comments Nurse Navigation 01/23/2023 Encounter Details Date Type Department Care Team (Late st Contact Info) Description 01/23/2023 Telephone [facility] Radiation Oncology - [facility] [address] [place] [address] [place] [address] [place] [address] Nurse Navigation Social History Tobacco [...] Telephone Encounter - Conchis Ramos NP - 01/23/2023 11:32 AM CDT Nurse Navigation Note: Called pt and aware Dr. Al's office will be contact him to sched a consultation appt. His office is aware he has a f/u appt 02/10/2023 and elijavidd inj on 03/18/2023. Pt agreed to cx appts at [facility] d/t he will be transferring his care. Provided pt with Dr. Al's office contact information if he should have any questions/concerns. documented in this encounter Plan of Treatment Upcoming Encounters Date Type Department Care Team (Late st Contact Info) Description 12/13/2024 9:45 AM CONTENT STRATEGIST Office Visit [facility] Oncology and Hematology - [place] [address] [facility] [address] [place] [phone] Glenn Al MD [address] [facility] [address] [place] [address] documented as of this encounter Visit Diagnoses Not on filedocumented in this encounter Care Teams Aeronautical Products Sales Engineer Relationship Specialty Start Date End Date Anirudh Craft MD 3[address] [facility] 4 [place] [address] PCP - General Internal Medicine 08/01/20 09/19/24 documented as of this encounter
--- OUTSIDE RECORDS SUMMARY | 2024-10-30 02:29 | XMS_ITS | Encounter Summary ---
Author Organization [facility] Address [address] [place] [address] Care Team Providers Care Account Developer Name Role Phone Anirudh Craft MD Primary Care Provider [phone] Reason for Visit * Reason Onset Date Comments Labs Only 01/16/2023 Encounter Details Date Type Department Care Team (Late st Contact Info) Description 01/16/2023 Telephone [facility] Oncology and Hematology [facility] [address] [address] [place] [address] [address] Labs Only Social History Tobacco Use Types Packs/Day Years [...] Telephone Encounter - Elisha Jules RN - 01/16/2023 8:36 AM CDT Patient to have LFT's repeated 01/22/[address] Ayala. ---- Message from Elisha Jules RN sent at 01/15/2023 4:27 PM CDT ----- Regarding: FW: Liver enzymes more elevated Contact: ----- Message ----- From: Elisha Jules RN Sent: 01/15/2023 9:22 AM CDT To: Joseph Ayala MD Subject: FW: Liver enzymes more elevated ----- Message ----- From: Garrick Ilan Perera Sent: 01/15/2023 8:41 AM CDT To: , # Subject: Liver enzymes more elevated I???d like to see if my liver enzymes have come down. Can dr Aponte order another test while I???m at [facility]? documented in this encounter Plan of Treatment Upcoming Encounters Date Type Department Care Team (Late st Contact Info) Description 12/13/2024 9:45 AM TEASEL SETTER Office Visit [facility] Oncology and Hematology - [place] 2[address] [facility] [address] [address] Glenn Al MD [address] [facility] [address] [place] [address] documented as of this encounter Procedures Procedure Name Priority Date/Time Associated Diagnosis Comments HEPATIC FUNCTION PANEL Routine 01/26/2023 8:57 AM CDT Elevated liver enzymes documented in this encounter Results * (ABNORMAL) HEPATIC FUNCTION PANEL (01/26/2023 8:57 AM CDT) TOTAL PROTEIN 6.5 6.1 - 8.1 g/dL [facility] ALBUMIN 4.4 3.6 - 5.1 g/dL [facility] GLOBULIN 2.1 1.9 - 3.7 g/dL (calc) [facility] ALBUMIN/GLOBULIN RATIO 2.1 1.0 - 2.5 (calc) [facility] BILIRUBIN TOTAL 0.7 0.2 - 1.2 mg/dL [facility] BILIRUBIN DIRECT 0.2 < OR = 0.2 mg/dL [facility] BILIRUBIN INDIRECT 0.5 0.2 - 1.2 mg/dL (calc) [facility] ALKALINE PHOSPHATASE 81 35 - 144 U/L [facility] AST 41(H) 10 - 35 U/L [facility] ALT 44 9 - 46 U/L [facility] Comment: Test Performed at: [facility] [address] [place], [place] ??[address] Danie Sheldon MD Blood 01/26/2023 8:57 AM CDT 01/26/2023 8:57 AM CDT Joseph Ayala MD CHEMISTRY ORDERABLES Performing Organization Address City/State/[facility] Co de Phone Number [facility] [phone] [facility] [address] documented in this encounter Visit Diagnoses Diagnosis Elevated liver enzymes- Primary Nonspecific elevation of levels of transaminase or lactic acid dehydrogenase (LDH) documented in this encounter Care Teams Account Developer Relationship Specialty Start Date End Date Anirudh Craft MD 3[address] [facility] 4 [place] [address] PCP - General Internal Medicine 08/01/20 09/19/24 documented as of this encounter
--- OUTSIDE RECORDS SUMMARY | 2024-10-30 02:29 | XMS_ITS | Encounter Summary ---
Author Organization [facility] [address] [facility] Address [address] [place] [address] Care Team Providers Care Sql Bi Developer Name Role Phone Anirudh Craft MD Primary Care Provider [phone] Encounter Details Date Type Department Care Team (Late Contact Info) Description 03/30/2023 Orders Only [facility] Oncology and Hematology - [place] [address] [place] [address] Glenn Al MD [address] [facility] [address] [place] [address] Cancer, metastatic to bone; Prostate [...] (Late Contact Info) Description 12/13/2024 9:45 AM LOGISTICS ENGINEERING MANAGER Office Visit [facility] Oncology and Hematology - [place] [address] [place] [address] Glenn Al MD 2[address] [facility] [address] [place] [address] documented as of this encounter Visit Diagnoses Diagnosis Cancer, 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
--- OUTSIDE RECORDS SUMMARY | 2024-10-30 02:29 | XMS_ITS | Encounter Summary ---
Author Organization [facility] [employer] [facility] Address [address] [place] [address] Care Team Providers Care Automobile Taillight Assembler Name Role Phone Anirudh Craft MD Primary Care Provider Encounter Details Date Type Department Care Team (Late Contact Info) Description 04/27/2023 Orders Only [facility] Oncology and Hematology [facility] [address] [place] [address] Glenn Al MD [address] [employer] [address] [place] [address] Cancer, metastatic to bone; Prostate [...] (Late Contact Info) Description 12/13/2024 9:45 AM CHIEF OPERATING OFFICER Office Visit [facility] Oncology and Hematology [facility] [address] [place] [address] Glenn Al MD [address] [employer] [address] [place] [address] documented as of this encounter Visit Diagnoses Diagnosis Cancer, 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
--- OUTSIDE RECORDS SUMMARY | 2024-10-30 02:29 | XMS_ITS | Encounter Summary ---
Author Organization [facility] Address [address] [place] [address] Care Team Providers Care Visiting Professor Name Role Phone Anirudh Craft MD Primary Care Provider Encounter Details Date Type Department Care Team (Late Contact Info) Description 06/08/2023 Orders Only [facility] Oncology and Hematology [facility] [address] [place] [address] Glenn Al MD [address] [employer] [address] [place] [address] Cancer, metastatic to bone; Prostate [...] (Late Contact Info) Description 12/13/2024 9:45 AM VASC TECH Office Visit [facility] Oncology and Hematology 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
--- OUTSIDE RECORDS SUMMARY | 2024-10-30 02:29 | XMS_ITS | Encounter Summary ---
Author Organization [facility] [employer] [facility] Address [address] [place] [address] Care Team Providers Care Education Associate Name Role Phone Anirudh Craft MD Primary Care Provider Encounter Details Date Type Department Care Team (Late Contact Info) Description 03/20/2023 Orders Only [facility] Oncology and Hematology - [place] 2[address] [facility] 200 [place] [address] Glenn Al MD 2[address] [facility] [address] [place] [address] Cancer, metastatic to bone (Primary Dx); Hyponatremia; Acute renal failure, unspecified acute renal failure type; Prostate cancer; Renal artery stenosis; Anemia, chronic [...] (Late Contact Info) Description 12/13/2024 9:45 AM FORENSIC SERGEANT Office Visit [facility] Oncology and Hematology [facility] [address] [facility] 200 [place] [address] Glenn Al MD [address] [facility] [address] [place] [address] Scheduled Orders Name Type Priority Associated Diagnoses Orde r Schedule CBC WITH DIFFERENTIAL Lab Routine Cancer, metastatic to bone Prostate cancer Renal artery stenosis Anemia, chronic disease Every Two Weeks for 99 Occurrences starting 03/20/2023 until 03/20/2024 COMPREHENSIVE METABOLIC PANEL Lab Routine Cancer, metastatic to bone Prostate cancer Renal artery stenosis Anemia, chronic disease Every Two Weeks for 99 Occurrences starting 03/20/2023 until 03/20/2024 BASIC METABOLIC PANEL Lab Routine Cancer, metastatic to bone Prostate cancer Renal artery stenosis Anemia, chronic disease Every Two Weeks for 99 Occurrences starting 03/20/2023 until 03/20/2024 documented as of this encounter Visit Diagnoses Diagnosis Cancer, metastatic to bone- Primary Secondary malignant neoplasm of bone and bone marrow Hyponatremia Hyposmolality and/or hyponatremia Acute renal failure, unspecified acute renal failure type Prostate cancer Malignant neoplasm of prostate Renal artery stenosis Atherosclerosis of renal artery Anemia, chronic disease Anemia of other chronic disease documented in this encounter Care Teams Education Associate Relationship Specialty Start Date End Date Anirudh Craft MD 3908 [facility] 4 [place] [address] PCP - General Internal Medicine 08/01/20 09/19/24 documented as of this encounter
--- OUTSIDE RECORDS SUMMARY | 2024-10-30 02:29 | XMS_ITS | Encounter Summary ---
Author Organization [facility] Address [address] [place] [address] Care Team Providers Care Yoghurt Maker Name Role Phone Anirudh Craft MD Primary Care Provider Reason for Visit * Reason Comments Follow Up Encounter Details Date Type Department Care Team (Late st Contact Info) Description 03/26/2023 9:00 AM CDT Office Visit [facility] Oncology and Hematology - [place] [address] [place] [address] [address] [place] [address] Glenn Al MD [address] [facility] [address] [place] [address] Cancer, metastatic to bone (Primary [...] Sign Reading Time Taken Comments Blood Pressure 137/71 03/26/2023 8:35 AM CDT Pulse 56 03/26/2023 8:35 AM CDT Temperature 36.3 ??C (97.3 ??F) 03/26/2023 8:35 AM CD T Respiratory Rate 10 03/26/2023 8:35 AM CDT Oxygen Saturation 100% 03/26/2023 8:35 AM CDT Inhaled Oxygen Concentration - - Weight 69.4 kg (153 lb) 03/26/2023 8:35 AM CDT Height - - Body Mass Index 24.69 12/24/2022 9:59 AM PRACTICAL NURSING FACULTY documented in this encounter Progress Notes * Glenn Al MD - 03/26/2023 10:00 AM CDT HEMATOLOGY / ONCOLOGY PROGRESS NOTE [...] follow-up visit. He denies any chest pain and abdominal pain. No bleeding and bruising. Weight and [...] dizziness Skin: No lumps, bumps or rashes. Objective: Vital signs in last 24 hours: [...] No lymphadenopathy Neuro: No obvious focal deficit PATH LABS Labs from March 05 showed creatinine 0.7 total bilirubin 0.4 PSA less than 0.1 WBC 7.2 hemoglobin 14.5platelet 203,000 @IMAGEIMP@ Assessment: Plan: Patient Active Problem List [...] in my office on March 23. Labs showed normal PSA of less than 0.1. He tolerated treatment well. I will see him back in 3 months. Bone scan and CT scan will be done in 6 months. Bone metastasis. Xgeva was was discontinued permanently in September 2020 due to dental disease. History of elevated liver enzymes. Liver enzymes came back normal. ? TOBACCO COUNSELING He is not a tobacco/nicotine user. 03/26/2023 Glenn Al MD documented in this encounter Plan of Treatment Upcoming Encounters Date Type Department Care Team (Late st Contact Info) Description 12/13/2024 9:45 AM PRACTICAL NURSING FACULTY Office Visit [facility] Oncology and Hematology [facility] [address] [facility] [address] [place] [address] Glenn Al MD [address] [facility] [address] [place] [address] documented as of this encounter Visit Diagnoses Diagnosis Cancer, metastatic to bone- Primary Secondary malignant neoplasm of bone and bone marrow documented in this encounter Care Teams Yoghurt Maker Relationship Specialty Start Date End Date Anirudh Craft MD 3[address] [facility] [address] [place] [phone] PCP - General Internal Medicine 08/01/20 09/19/24 documented as of this encounter
--- OUTSIDE RECORDS SUMMARY | 2024-10-30 02:29 | XMS_ITS | Encounter Summary ---
Author Organization [facility] Address [address] [place] [address] Care Team Providers Care Counterintelligence Agent Name Role Phone Anirudh Craft MD Primary Care Provider [phone] Encounter Details Date Type Department Care Team (Late Contact Info) Description 06/22/2023 Orders Only [facility] Oncology and Hematology [facility] [address] [place] [address] Glenn Al MD [address] [employer] [address] [place] [address] Cancer, metastatic to bone; Prostate [...] (Late Contact Info) Description 12/13/2024 9:45 AM VACUUM WORKER Office Visit [facility] Oncology and Hematology [facility] [address] [place] [address] Glenn Al MD [address] [employer] [address] [place] [address] documented as of this encounter Visit Diagnoses Diagnosis Cancer, 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
--- OUTSIDE RECORDS SUMMARY | 2024-10-30 02:29 | XMS_ITS | Encounter Summary ---
Author Organization [facility] [employer] [facility] Address [address] [place] [address] Care Team Providers Care Sql Database Programmer Name Role Phone Anirudh Craft MD Primary Care Provider Encounter Details Date Type Department Care Team (Late Contact Info) Description 08/17/2023 Orders Only [facility] Oncology and Hematology [facility] [address] [place] [address] Glenn Al MD [address] [employer] [address] [place] [address] Cancer, metastatic to bone; Prostate cancer; [...] (Late Contact Info) Description 12/13/2024 9:45 AM MACHINIST 2ND SHIFT Office Visit [facility] Oncology and Hematology [facility] [address] [place] [address] Glenn Al MD [address] [employer] [address] [place] [address] documented as of this encounter Visit Diagnoses Diagnosis Cancer, 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
--- OUTSIDE RECORDS SUMMARY | 2024-10-30 02:29 | XMS_ITS | Encounter Summary ---
Author Organization [facility] [employer] [facility] Address [address] [place] [address] Care Team Providers Care Bander And Cellophaner Machine Helper Name Role Phone Anirudh Craft MD Primary Care Provider [phone] Encounter Details Date Type Department Care Team (Late Contact Info) Description 08/03/2023 Orders Only [facility] Oncology and Hematology [facility] [address] [place] [address] Glenn Al MD [address] [employer] [address] [place] [address] Cancer, metastatic to bone; Prostate cancer; [...] (Late Contact Info) Description 12/13/2024 9:45 AM OPTICAL STORE MANAGER Office Visit [facility] Oncology and Hematology [facility] [address] [place] [address] Glenn Al MD [address] [employer] [address] [place] [address] documented as of this encounter Visit Diagnoses Diagnosis Cancer, 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
--- OUTSIDE RECORDS SUMMARY | 2024-10-30 02:29 | XMS_ITS | Encounter Summary ---
Author Organization [facility] [employer] [facility] Address [address] [place] [address] Care Team Providers Care Sound Effects Supervisor Name Role Phone Anirudh Craft MD Primary Care Provider Encounter Details Date Type Department Care Team (Late Contact Info) Description 07/06/2023 Orders Only [facility] Oncology and Hematology [facility] [address] [place] [address] Glenn Al MD [address] [employer] [address] [place] [address] Cancer, metastatic to bone; Prostate cancer; [...] (Late Contact Info) Description 12/13/2024 9:45 AM TRANSPLANT SURGEON Office Visit [facility] Oncology and Hematology [facility] [address] [place] [address] Glenn Al MD [address] [employer] [address] [place] [address] documented as of this encounter Visit Diagnoses Diagnosis Cancer, 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
--- OUTSIDE RECORDS SUMMARY | 2024-10-30 02:29 | XMS_ITS | Encounter Summary ---
Author Organization [facility] [employer] [place] [facility] Address [address] [place] [address] Care Team Providers Care Programmer Operator Numerical Control Name Role Phone Anirudh Craft MD Primary Care Provider [phone] Encounter Details Date Type Department Care Team (Late Contact Info) Description 06/15/2023 Abstract [facility] Oncology and Hematology - [place] [address] [place] [address] Noemi Bowens Social History Tobacco Use Types Packs/Day Years [...] Upcoming Encounters Date Type Department Care Team ([facility] Contact Info) Description 12/13/2024 9:45 AM INSPECTOR RADAR AND ELECTRONICS Office Visit [facility] Oncology and Hematology - [place] [address] [place] [address] Glenn Al MD 2[address] [facility] [address] [place] [address] documented as of this encounter Visit Diagnoses Not on filedocumented in this encounter Care Teams Programmer Operator Numerical Control Relationship Specialty [place] [address] [place] [address] 4 [place] [address] PCP - General Internal Medicine 08/01/20 09/19/24 documented as of this encounter
--- OUTSIDE RECORDS SUMMARY | 2024-10-30 02:29 | XMS_ITS | Encounter Summary ---
Author Organization [facility] Address [address] [place] [address] Care Team Providers Care Spreading Machine Operator Name Role Phone Anirudh Craft MD Primary Care Provider [phone] Encounter Details Date Type Department Care Team (Late Contact Info) Description 03/20/2023 Orders Only [facility] Oncology and Hematology - [place] [address] [facility] [place] [facility] [address] [place] [address] Glenn Al MD [address] [facility] [address] [place] [address] Acute renal failure, unspecified acute renal failure type (Primary Dx); Anemia, chronic disease; Leukocytosis, unspecified type; Hyperlipidemia, unspecified hyperlipidemia type; Benign prostatic hyperplasia, unspecified whether lower urinary tract symptoms present Social History Tobacco Use Types Packs/Day Years [...] st Contact Info) Description 12/13/2024 9:45 AM METER ENGINEER Office Visit [facility] Oncology and Hematology - [place] [address] [facility] [address] [place] [address] Glenn Al MD [address] [facility] [address] [place] [address] documented as of this encounter Visit Diagnoses Diagnosis Acute renal failure, unspecified acute renal failure type- Primary Anemia, chronic disease Anemia of other chronic disease Leukocytosis, unspecified type Hyperlipidemia, unspecified hyperlipidemia type Benign prostatic hyperplasia, unspecified whether lower urinary tract symptoms present documented in this encounter Care Teams Spreading Machine Operator Relationship Specialty Start Date End Date Anirudh Craft MD 3[address] [facility] 4 [place] [address] PCP - General Internal Medicine 08/01/20 09/19/24 documented as of this encounter
--- OUTSIDE RECORDS SUMMARY | 2024-10-30 02:30 | XMS_ITS | Encounter Summary ---
Author Organization [facility] Address [address] [facility] [address] Fernándezn: Epic Prelude ADT [place] [address] Care Team Providers Care Technical Photographer Name Role Phone Anirudh Craft MD Primary Care Provider [phone] Encounter Details Date Type Department Care Team (Latest Contact Info) Description 08/05/2022 Travel Social History Tobacco Use Types Packs/Day [...] suspected to have Coronavirus/COVID-19? No / Unsure 08/05/2022 12:56 PM CDT documented as of this encounter Plan of Treatment Upcoming Encounters Date Type Department Care Team (Late st Contact Info) Description 12/13/2024 9:45 AM SAMPLE PREPARATION SUPERVISOR Office Visit [facility] Oncology and Hematology - [place] [address] [facility] [address] [place] [address] Glenn Al MD [address] [facility] [address] [place] [address] documented as of this encounter Visit Diagnoses Not on filedocumented in this encounter Care Teams Technical Photographer Relationship Specialty Start Date End Date Anirudh Craft MD [address] [address] PCP - General Internal Medicine 08/01/20 09/19/24 documented as of this encounter
--- OUTSIDE RECORDS SUMMARY | 2024-10-30 02:30 | XMS_ITS | Encounter Summary ---
Author Organization [facility] Address [address] [place] [address] Care Team Providers Care Social Services Aide Name Role Phone Anirudh Craft MD Primary Care Provider [phone] Encounter Details Date Type Department Care Team (Late Contact Info) Description 08/05/2022 Orders Only [facility] Oncology and Hematology [facility] [address] [place] [address] [place] [address] [address] Social History Tobacco Use Types Packs/Day Years [...] st Contact Info) Description 12/13/2024 9:45 AM REMOTE SENSING TECHNOLOGIST Office Visit [facility] Oncology and Hematology [facility] [address] [place] [address] Glenn Al MD [address] [address] documented as of this encounter Visit Diagnoses Not on filedocumented in this encounter Care Teams Social Services Aide Relationship Specialty Start Date End Date Anirudh Craft MD [address] [address] PCP - General Internal Medicine 08/01/20 09/19/24 documented as of this encounter
--- OUTSIDE RECORDS SUMMARY | 2024-10-30 02:30 | XMS_ITS | Encounter Summary ---
Author Organization [facility] Address [address] [place] [address] Care Team Providers Care Banjo Repair Person Name Role Phone Anirudh Craft MD Primary Care Provider Encounter Details Date Type Department Care Team (Late Contact Info) Description 12/16/2022 Specialty Pharmacy [facility] [address] [facility] [address] [place] [address] Noemi Polk, PHARMACIST Specialty Pharmacy Refill Coordination Social History Tobacco Use Types Packs/Day Years [...] suspected to have Coronavirus/COVID-19? No / Unsure 12/24/2022 9:45 AM MUSEUM PREPARATOR documented as of this encounter Plan of Treatment Upcoming Encounters Date Type Department Care Team (Late Contact Info) Description 12/13/2024 9:45 AM MUSEUM PREPARATOR Office Visit [facility] Oncology and Hematology - [place] [address] [facility] [address] [place] [address] Glenn Al MD [address] [facility] [address] [place] [address] documented as of this encounter Visit Diagnoses Not on filedocumented in this encounter Care Teams Banjo Repair Person Relationship Specialty Start Date End Date Anirudh Craft MD [address] [facility] 4 [place] [address] PCP - General Internal Medicine 08/01/20 09/19/24 documented as of this encounter
--- OUTSIDE RECORDS SUMMARY | 2024-10-30 02:30 | XMS_ITS | Encounter Summary ---
Author Organization [facility] Address [address] [place] [address] Care Team Providers Care Metallurgist Helper Name Role Phone Anirudh Craft MD Primary Care Provider [phone] Reason for Visit * Tx/Med Therapy Plan Auth (Routine) - Closed Specialty Diagnoses / Procedures Referred By Cecile t Referred To Contact Diagnoses Prostate cancer Cancer, metastatic to bone Procedures [place] LEUPROLIDE ACETATE SUSPNSION Kailyn Cat MD [address] [place] [address] [facility] [address] [place] [address] Referral ID Status Reason Start Date Expiration Date Visits Re quested Visits Authorized [id number] Closed 12/12/2020 12/24/2022 99 99 Encounter Details Date Type Department Care Team (Latest Contact Info) Description 04/01/2022 9:44 AM CDT - 04/01/2022 11:59 PM CDT Hospital Encounter [facility] [address] [place] [address] Kailyn Blood MD [address] [place], [place] [id number] Injection Pod 1, Felicit[place] Discharge Disposition: Home or Self Care Social History Tobacco Use Types Packs/Day Years [...] suspected to have Coronavirus/COVID-19? No / Unsure 04/01/2022 9:07 AM CDT documented as of this encounter Medications at Time of Discharge Medication Sig Dispensed Refills Start Date End Date coenzyme Q10 100 mg Capsule Take 100 mg by mouth. rosuvastatin (CRESTOR) 20 mg tablet Take 10 mg by mouth daily at bedtime. 10MG NOW PER PT amLODIPine (NORVASC) 5 mg tablet Take 2.5 mg by mouth daily. albuterol HFA 90 mcg inhaler Take 2 Puffs by inhalation every 4 hours as needed for Shortness of Breath or Wheezing. 8.5 Gram 3 03/04/2021 06/23/2022 documented as of this encounter Progress Notes * Bruna Edward RN - 04/01/2022 10:30 AM CDT Pt admitted to infusion center for Eligard injection. Pt demonstrates understanding of medication and possible side effects. Tolerated injection without problem. Instructed pt to notify physician or go to ED if there are any changes in their condition. Verbalized understanding. Discharged home. documented in this encounter Plan of Treatment Upcoming Encounters Date Type Department Care Team (Late st Contact Info) Description 12/13/2024 9:45 AM LABORATORY GENETICIST Office Visit [facility] Oncology and Hematology - [place] [address] [place] [address] Glenn Al MD [address] [facility] [address] [place] [address] documented as of this encounter Visit Diagnoses Diagnosis Cancer, metastatic to bone- Primary Secondary malignant neoplasm of bone and bone marrow Prostate cancer Malignant neoplasm of prostate documented in this encounter Administered Medications Inactive Administered Medications - up to 3 most recent administrations Medication Order MAR Action Action Date Dose Rate Site leuprolide acetate (ELIGARD) 3 month subcut syringe 22.5 mg 22.5 mg, subCUT, ONE TIME ONLY, 1 dose, On Thu04/01/22 at 1000, Routine Given 04/01/2022 9:55 AM CDT 22.5 mg Buttock, Right documented in this encounter Care Teams Metallurgist Helper Relationship Specialty Start Date End Date Anirudh Craft MD [address] [phone] PCP - General Internal Medicine 08/01/20 09/19/24 documented as of this encounter
--- OUTSIDE RECORDS SUMMARY | 2024-10-30 02:30 | XMS_ITS | Encounter Summary ---
Author Organization [employer] [facility] Address [address] [place] [address] Care Team Providers Care Inspector Rough Castings Name Role Phone Anirudh Craft MD Primary Care Provider [phone] Reason for Visit * Tx/Med Therapy Plan Auth (Routine) - Closed Specialty Diagnoses / Procedures Referred By Contarmani t Referred To Contact Diagnoses Prostate cancer Cancer, metastatic to bone Procedures CT LEUPROLIDE ACETATE SUSPNSION Kailyn Cat MD [address] [place] [address] [facility] [address] [place] [address] Referral ID Status Reason Start Date Expiration Date Visits Re quested Visits Authorized [id number] Closed 12/12/2020 12/24/2022 99 99 Encounter Details Date Type Department Care Team (Latest Contact Info) Description 12/30/2021 10:52 AM JET AIRCRAFT SERVICER - 12/30/2021 11:59 PM JET AIRCRAFT SERVICER Hospital Encounter [facility] [address] [place] [address] Kailyn Blood MD [address] [place], [place] [phone] Injection Pod 1, [place] Discharge Disposition: Home or Self Care Social [...] Exposure Response Date Recorded In the last month, have you been in contact with someone who was confirmed or suspected to have Coronavirus / COVID-19? No / Unsure 12/30/2021 9:47 AM JET AIRCRAFT SERVICER documented as of this encounter Medications at [...] as of this encounter Progress Notes * Lissa Lopez RN - 12/30/2021 11:00 AM CST Pt admitted to infusion center for Eligard injection. Pt demonstrates understanding of medication and possible side effects. Tolerated injection without problem. Instructed pt to notify physician or go to ED if there are any changes in their condition. Verbalized understanding. Discharged home. AIRCRAFT SERVICER documented in this encounter Plan of Treatment Upcoming Encounters Date Type Department Care Team (Late st Contact Info) Description 12/13/2024 9:45 AM JET AIRCRAFT SERVICER Office Visit [facility] Oncology and Hematology - [place] [address] [facility] [address] [place] [address] Glenn Al MD [address] [facility] [address] [place] [address] documented as of this encounter [...] subCUT, ONE TIME ONLY, 1 dose, On 12/30/21 at 1100, Routine Given 12/30/2021 11:02 AM JET AIRCRAFT SERVICER 22.5 mg Buttock, Right documented in this encounter Care Teams Inspector Rough Castings Relationship Specialty Start Date End Date Anirudh Craft MD [address] [phone] PCP - General Internal Medicine 08/01/20 09/19/24 documented as of this encounter
--- OUTSIDE RECORDS SUMMARY | 2024-10-30 02:30 | XMS_ITS | Encounter Summary ---
Author Organization [facility] Address [address] [place] [address] Care Team Providers Care Children'S Choir Director Name Role Phone Anirudh Craft MD Primary Care Provider [phone] Reason for Visit * Tx/Med Therapy Plan Auth (Routine) - Closed Specialty Diagnoses / Procedures Referred By Contac t Referred To Contact Diagnoses Prostate cancer Cancer, metastatic to bone Procedures [place] LEUPROLIDE ACETATE SUSPNSION Kailyn Cat MD [address] [place] [address] [facility] [address] [place] [address] Referral ID Status Reason Start Date Expiration Date Visits Re quested Visits Authorized [id number] Closed 12/12/2020 12/24/2022 99 99 Encounter Details Date Type Department Care Team (Late st Contact Info) Description 12/24/2022 9:47 AM PAGINATOR - 12/24/2022 11:59 PM [facility] Hospital Encounter [facility] Infusion Services [facility] [address] [place] [address] Kailyn Blood MD [address] [place] [address] [facility], Injection Room Infusion Discharge Disposition: Home or Self Care Social [...] suspected to have Coronavirus/COVID-19? No / Unsure 01/05/2023 9:45 AM PAGINATOR documented as of this encounter Last Filed Vital Signs Vital Sign Reading Time Taken Comments Blood Pressure 113/61 12/24/2022 10:35 AM PAGINATOR Pulse 56 12/24/2022 10:35 AM PAGINATOR Temperature 36.6 ??C (97.9 ??F) 12/24/2022 10:[address] Respiratory Rate - - Oxygen Saturation - - Inhaled Oxygen Concentration - - Weight - - Height - - Body Mass Index - - documented in this encounter Medications at Time of Discharge Medication Sig Dispensed Refills Start Date End Date coenzyme Q10 100 mg Capsule Take 100 mg by mouth. rosuvastatin (CRESTOR) 20 mg tablet Take 10 mg by mouth daily at bedtime. 10MG NOW PER PT amLODIPine (NORVASC) 5 mg tablet Take 2.5 mg by mouth daily. documented as of this encounter Progress Notes * Linda Feliciano RN - 12/24/2022 11:04 AM CST Ilan Mccauley admitted to [facility] for injection. Pt denies questions about medication/side effects. Eligard given without difficulty. Pt instructed to notify physician or report to ED if there are any changes in their condition. Verbalized understanding. Pt discharged home. NATOR documented in this encounter Plan of Treatment Upcoming Encounters Date Type Department Care Team (Late st Contact Info) Description 12/13/2024 9:45 AM PAGINATOR Office Visit [facility] Oncology and Hematology - [place] [address] [place] [address] Glenn Al MD [address] [facility] [address] [place] [address] documented as of this encounter [...] subCUT, ONE TIME ONLY, 1 dose, On Thu12/24/22 at 1045, Routine Given 12/24/2022 11:00 AM PAGINATOR 22.5 mg Buttock, Left documented in this encounter Care Teams Children'S Choir Director Relationship Specialty Start Date End Date Anirudh Craft MD [address] [phone] PCP - General Internal Medicine 08/01/20 09/19/24 documented as of this encounter
--- OUTSIDE RECORDS SUMMARY | 2024-10-30 02:30 | XMS_ITS | Encounter Summary ---
Author Organization [facility] Address [address] Fernándezn: Epic Prelude ADT [place] [address] Care Team Providers Care Driver Name Role Phone Anirudh Craft MD Primary Care Provider [phone] Encounter Details Date Type Department Care Team (Latest Contact Info) Description 01/15/2023 Travel Social History Tobacco Use Types Packs/Day [...] st Contact Info) Description 12/13/2024 9:45 AM BARBER STYLIST Office Visit [facility] Oncology and Hematology - [place] [address] [place] [address] Glenn Al MD [address] [facility] [address] [place] [address] documented as of this encounter Visit Diagnoses Not on filedocumented in this encounter Care Teams Driver Relationship Specialty Start Date End Date Anirudh Craft MD [address] [address] PCP - General Internal Medicine 08/01/20 09/19/24 documented as of this encounter
--- OUTSIDE RECORDS SUMMARY | 2024-10-30 02:30 | XMS_ITS | Encounter Summary ---
Author Organization [facility] Address [address] Fernándezn: Epic Prelude ADT [place] [address] Care Team Providers Care Dog And Cat Food Cook Name Role Phone Anirudh Craft MD Primary Care Provider Encounter Details Date Type Department Care Team (Latest Contact Info) Description 07/02/2022 Travel Social History Tobacco Use Types Packs/Day [...] suspected to have Coronavirus/COVID-19? No / Unsure 07/02/2022 9:36 AM CDT documented as of this encounter Plan of Treatment Upcoming Encounters Date Type Department Care Team (Late st Contact Info) Description 12/13/2024 9:45 AM PROTOTYPE ENGINEER Office Visit [facility] Oncology and Hematology - [place] [address] [place] [address] Glenn Al MD [address] [facility] [address] [place] [address] documented as of this encounter Visit Diagnoses Not on filedocumented in this encounter Care Teams Dog And Cat Food Cook Relationship Specialty Start Date End Date Anirudh Craft MD [address] [address] PCP - General Internal Medicine 08/01/20 09/19/24 documented as of this encounter
--- OUTSIDE RECORDS SUMMARY | 2024-10-30 02:30 | XMS_ITS | Encounter Summary ---
Author Organization [facility] Address [address] [place] [address] Care Team Providers Care Hog Feeder Name Role Phone Anirudh Craft MD Primary Care Provider Encounter Details Date Type Department Care Team (Late st Contact Info) Description 08/06/2022 Abstract [facility] Oncology and Hematology [facility] [id number] [place] [address] [place] [address] [address] Social History Tobacco Use Types [...] st Contact Info) Description 12/13/2024 9:45 AM PEDIATRIC SOCIAL WORKER Office Visit [facility] Oncology and Hematology [facility] [address] [place] [address] Glenn Al MD [address] [address] documented as of this encounter Visit Diagnoses Not on filedocumented in this encounter Care Teams Hog Feeder Relationship Specialty Start Date End Date Anirudh Craft MD [address] [address] PCP - General Internal Medicine 08/01/20 09/19/24 documented as of this encounter
--- OUTSIDE RECORDS SUMMARY | 2024-10-30 02:30 | XMS_ITS | Encounter Summary ---
Author Organization [facility] Address [address] [facility] Attn: Epic Prelude ADT [place] [address] Care Team Providers Care Call Out Operator Name Role Phone Anirudh Craft MD Primary Care Provider Encounter Details Date Type Department Care Team (Latest Contact Info) Description 10/01/2022 Travel Social History Tobacco Use Types Packs/Day [...] suspected to have Coronavirus/COVID-19? No / Unsure 10/01/2022 10:01 AM TOOL MECHANIC documented as of this encounter Plan of Treatment Upcoming Encounters Date Type Department Care Team (Late st Contact Info) Description 12/13/2024 9:45 AM TOOL MECHANIC Office Visit [facility] Oncology and Hematology - [place] [address] [place] [address] Glenn Al MD [address] [facility] [address] [place] [address] documented as of this encounter Visit Diagnoses Not on filedocumented in this encounter Care Teams Call Out Operator Relationship Specialty Start Date End Date Anirudh Craft MD [address] [address] PCP - General Internal Medicine 08/01/20 09/19/24 documented as of this encounter
--- OUTSIDE RECORDS SUMMARY | 2024-10-30 02:30 | XMS_ITS | Encounter Summary ---
Author Organization [facility] Address [address] [place] [address] Care Team Providers Care Community Health Education Coordinator Name Role Phone Anirudh Craft MD Primary Care Provider Encounter Details Date Type Department Care Team (Latest Contact Info) Description 07/02/2022 9:30 AM CDT - 07/02/2022 11:59 PM CDT Hospital Encounter [facility] Laboratory Services [facility] [address] [place] [address] Kailyn Blood MD [address] [place] [address] Discharge Disposition: Home or Self Care Social [...] mouth daily. 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 POTASSIUM 4.0 3.5 - 5.0 mmol/L 07/02/2022 10:44 AM CDT [facility] CHLORIDE 105 98 - 107 mmol/L 07/02/2022 10:44 AM CDT [facility] CO2 26 22 - 29 mmol/L 07/02/2022 10:44 AM CDT [facility] CALCIUM 9.6 8.6 - 10.2 mg/dL 07/02/2022 10:44 AM CDT [facility] BUN 16 8 - 23 mg/dL 07/02/2022 10:44 AM CDT [facility] CREATININE 0.74 0.67 - 1.17 mg/dL 07/02/2022 10:44 AM [facility] Comment:The GFR result is no t clinically significant on patients <18 or >70 years of age. GLUCOSE 91 74 - 99 mg/dL 07/02/2022 10:44 AM [facility] TOTAL PROTEIN 7.0 6.7 - 8.6 g/dL 07/02/2022 10:44 AM [facility] - [facility] ALBUMIN 4.8 3.5 - 5.2 g/dL 07/02/2022 10:44 AM [facility] BILIRUBIN TOTAL 0.3 0.2 - 1.1 mg/dL 07/02/2022 10:44 AM [facility] ALKALINE PHOSPHATASE 94 40 - 129 U/L 07/02/2022 10:44 AM [facility] AST 26 <41 U/L 07/02/2022 10:44 AM [facility] ALT 18 <42 U/L 07/02/2022 10:44 AM [facility] GFR >60 mL/min/1.7 3 sq meter 07/02/2022 10:44 AM [facility] Comment:eGFR calculated with 2020 CKD-EPI equation. Vegetarian diet, extremely high or low muscle mass, and may affect results. Cystatin C with Glomerular Filtration Rate is a suitable alternative for these patients. ANION GAP 11 8 - 16 mmol/L 07/02/2022 10:44 AM [facility] Blood Venipuncture / Unknown 07/02/2022 9:48 AM CDT 07/02/2022 10:00 AM [facility] LABORATORY [facility] - 07/02/2022 10:[address] [facility] Samples containing indocyanine green cause interferences on Total and/or Direct Bilirubin and must not be measured. Kailyn Blood MD CHEMISTRY ORDERABLES [facility] CLIA# [id number] [address] [facility] [place] [address] * (ABNORMAL) CBC WITH DIFFERENTIAL (07/02/2022 9:48 AM CDT) [facility] WBC 8.5 4.0 - 9.8 K/uL 07/02/2022 9:59 AM CDT [facility] RBC 4.16(L) 4.50 - 5.40 M/uL 07/02/2022 9:59 AM CDT [facility] HEMOGLOBIN 13.5(L) 13.6 - 16.5 g/dL 07/02/2022 9:59 AM CDT [facility] HEMATOCRIT 41.1 40.0 - 48.0 % 07/02/2022 9:59 AM CDT [facility] MCV 98.8 82.0 - 99.0 fL 07/02/2022 9:59 AM CDT [facility] - . [facility] MCH 32.5 27.2 - 32.6 pg 07/02/2022 9:59 AM CDT [facility] . [facility] MCHC 32.8 31.5 - 35.5 g/dL 07/02/2022 9:59 AM CDT [facility] RDW 12.8 11.5 - 14.5 % 07/02/2022 9:59 AM CDT [facility] . [facility] RDW-STDEV 46.3 37.1 - 48.7 fL 07/02/2022 9:59 AM CDT [facility] PLATELETS 213 140 - 350 K/uL 07/02/2022 9:59 AM CDT [facility] MPV 11.0 9.3 - 12.4 fL 07/02/2022 9:59 AM CDT [facility] NEUTROPHILS 47 % 07/02/2022 9:59 AM CDT [facility] LYMPHOCYTES 39 % 07/02/2022 9:59 AM CDT [facility] MONOCYTES 9 % 07/02/2022 9:59 AM CDT [facility] EOSINOPHILS 4 % 07/02/2022 9:59 AM CDT [facility] BASOPHILS 1 % 07/02/2022 9:[address] [facility] IMMATURE GRANULOCYTES 0 % 07/02/2022 9:[address] [facility] NEUTROPHIL ABSOLUTE 4.00 1.90 - 7.00 K/uL 07/02/2022 9:[address] [facility] LYMPHOCYTE ABSOLUTE 3.26 0.70 - 4.50 K/uL 07/02/2022 9:[address] [facility] MONOCYTE ABSOLUTE 0.75 0.10 - 1.30 K/uL 07/02/2022 9:[address] [facility] EOSINOPHIL ABSOLUTE 0.36 0.00 - 0.70 K/uL 07/02/2022 9:[address] [facility] BASOPHILS ABSOLUTE 0.06 0.00 - 0.20 K/uL 07/02/2022 9:[address] [facility] IMMATURE GRANULOCYTES ABSOLUTE 0.02 0.00 - 0.03 K/uL 07/02/2022 9:[address] [facility] Blood Venipuncture / Unknown 07/02/2022 9:48 AM CDT 07/02/2022 9:56 AM CDT Kailyn Blood MD HEMATOLOGY ORDERABLE [facility] [employer] [facility]# [id number] [address] [facility] [place] [address] * PSA (07/02/2022 9:48 AM CDT) PSA <0.1 <4.0 ng/mL 07/04/2022 11:[address] [facility] SERVICES [facility] Blood Venipuncture / Unknown 07/02/2022 9:48 AM CDT 07/02/2022 10:[address] [facility] - 07/04/2022 11:05 AM CDT The concentration of PSA in a given specimen, as determined by assays from different manufacturers, can vary because of differences in assay methods and reagent specificity. Values obtained with different assay methods cannot be used interchangeably. The testing method in use is the WILLIAM Electrochemiluminescence Immunoassay. Kailyn Blood MD CHEMISTRY ORDERABLES Performing Organization Address City/State/[facility] Co de Phone Number [facility] CLID# [id number] [address] [place] [address] documented in this encounter Visit Diagnoses Diagnosis Prostate cancer Malignant neoplasm of prostate Malignant neoplasm of parotid gland documented in this encounter Care Teams Community Health Education Coordinator Relationship Specialty Start Date End Date Anirudh Craft MD [address] [phone] PCP - General Internal Medicine 08/01/20 09/19/24 documented as of this encounter
--- OUTSIDE RECORDS SUMMARY | 2024-10-30 02:30 | XMS_ITS | Encounter Summary ---
Author Organization [facility] Address [address] [place] [address] Care Team Providers Care Utility Helicopter Repairer Name Role Phone Anirudh Craft MD Primary Care Provider [phone] Encounter Details Date Type Department Care Team (Latest Contact Info) Description 10/01/2021 10:00 AM CUSTOMER SERVICE CLERK - 10/01/2021 11:59 PM CUSTOMER SERVICE CLERK Hospital Encounter [facility] Laboratory Services [facility] [address], [address] [place] [address] Kailyn Blood MD [address] [place] [address] Discharge Disposition: Home or Self [...] have Coronavirus / COVID-19? No / Unsure 10/01/2021 9:58 AM CUSTOMER SERVICE CLERK documented as of this encounter Medications at [...] 03/04/2021 06/23/2022 documented as of this encounter Plan of Treatment Upcoming Encounters Date Type Department Care Team (Late st Contact Info) Description 12/13/2024 9:45 AM CUSTOMER SERVICE CLERK Office Visit [facility] Oncology and Hematology [facility] [address] [facility] [address] [place] [address] Glenn Al MD [address] [facility] [address] [place] [address] documented as of this encounter Procedures Procedure Name Priority Date/Time Associated Diagnosis Comments CBC WITH DIFFERENTIAL Stat 10/01/2021 10:08 AM CUSTOMER SERVICE CLERK 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 RBC 4.07(L) 4.50 - 5.40 M/uL 10/01/2021 10:22 AM [facility] LABORATORY SERVICES [facility] HEMOGLOBIN 13.2(L) 13.6 - 16.5 g/dL 10/01/2021 10:22 AM [facility] LABORATORY SERVICES [facility] HEMATOCRIT 39.5(L) 40.0 - 48.0 % 10/01/2021 10:22 AM [facility] LABORATORY [facility] MCV 97.1 82.0 - 99.0 fL 10/01/2021 10:22 AM [facility] LABORATORY SERVICES - [facility] MCH 32.4 27.2 - 32.6 pg 10/01/2021 10:22 AM CUSTOMER SERVICE CLERK [facility] LABORATORY SERVICES - [facility] MCHC 33.4 31.5 - 35.5 g/dL 10/01/2021 10:22 AM CUSTOMER SERVICE CLERK [employer] LABORATORY SERVICES - [facility] RDW 12.5 11.5 - 14.5 % 10/01/2021 10:22 AM CUSTOMER SERVICE CLERK [employer] LABORATORY SERVICES - [facility] RDW-STDEV 45.1 37.1 - 48.7 fL 10/01/2021 10:22 AM CUSTOMER SERVICE CLERK [employer] LABORATORY SERVICES - [facility] PLATELETS 207 140 - 350 K/uL 10/01/2021 10:22 AM CUSTOMER SERVICE CLERK [employer] LABORATORY SERVICES - [facility] MPV 10.6 9.3 - 12.4 fL 10/01/2021 10:22 AM [employer] LABORATORY SERVICES - [facility] NEUTROPHILS 47 % 10/01/2021 10:22 AM [employer] LABORATORY SERVICES - [facility] LYMPHOCYTES 40 % 10/01/2021 10:22 AM [employer] LABORATORY SERVICES - [facility] MONOCYTES 9 % 10/01/2021 10:22 AM [employer] LAB[facility]ATORY SERVICES - [facility] EOSINOPHILS 4 % 10/01/2021 10:22 AM [employer] LABORATORY SERVICES - [facility] BASOPHILS 1 % 10/01/2021 10:22 AM [employer] LAB[facility]ATORY SERVICES - [facility] IMMATURE GRANULOCYTES 0 % 10/01/2021 10:22 AM [employer] LABORATORY SERVICES - [facility] NEUTROPHIL ABSOLUTE 3.48 1.90 - 7.00 K/uL 10/01/2021 10:22 AM [employer] LABORATORY SERVICES - [facility] LYMPHOCYTE ABSOLUTE 3.02 0.70 - 4.50 K/uL 10/01/2021 10:22 AM CUSTOMER SERVICE CLERK [employer] LABORATORY SERVICES - [facility] MONOCYTE ABSOLUTE 0.64 0.10 - 1.30 K/uL 10/01/2021 10:22 AM CUSTOMER SERVICE CLERK [employer] LABORATORY SERVICES - [facility] EOSINOPHIL ABSOLUTE 0.31 0.00 - 0.70 K/uL 10/01/2021 10:22 AM CUSTOMER SERVICE CLERK [employer] LABORATORY SERVICES - [facility] BASOPHILS ABSOLUTE 0.04 0.00 - 0.20 K/uL 10/01/2021 10:22 AM [employer] LABORATORY SERVICES - [facility] IMMATURE GRANULOCYTES ABSOLUTE 0.01 0.00 - 0.03 K/uL 10/01/2021 10:22 AM [facility] [employer] LABORATORY SERVICES - [facility] Blood Venipuncture / Unknown 10/01/2021 10:08 AM CUSTOMER SERVICE CLERK 10/01/2021 10:18 AM CUSTOMER SERVICE CLERK Kailyn Blood MD HEMATOLOGY ORDERABLE S [employer] SERVICES [facility] CLIA# [id number] [address] [place] [id number] * (ABNORMAL) COMPREHENSIVE METABOLIC PANEL (10/01/2021 10:08 AM CUSTOMER SERVICE CLERK) SODIUM 141 136 - 145 mmol/L 10/01/2021 10:58 AM [facility] [employer] LABORATORY SERVICES - [facility] POTASSIUM 4.0 3.5 - 5.0 mmol/L 10/01/2021 10:58 AM [facility] [employer] LABORATORY SERVICES - . [facility] CHLORIDE 106 98 - 107 mmol/L 10/01/2021 10:58 AM [facility] [employer] LABORATORY SERVICES - . [facility] CO2 25 22 - 29 mmol/L 10/01/2021 10:58 AM [facility] [employer] LABORATORY SERVICES - . [facility] CALCIUM 9.6 8.6 - 10.2 mg/dL 10/01/2021 10:58 AM [facility] [employer] LABORATORY SERVICES - . [facility] BUN 14 8 - 23 mg/dL 10/01/2021 10:58 AM [facility] [employer] LABORATORY SERVICES - . [facility] CREATININE 0.68 0.67 - 1.17 mg/dL 10/01/2021 10:58 AM CUSTOMER SERVICE CLERK [employer] LABORATORY SERVICES - . [place] Comment:The GFR result is no t clinically significant on patients <18 or >70 years of age. GLUCOSE 106(H) 74 - 99 mg/dL 10/01/2021 10:58 AM [facility] [employer] LABORATORY SERVICES [facility] TOTAL PROTEIN 7.0 6.7 - 8.6 g/dL 10/01/2021 10:58 AM CUSTOMER SERVICE CLERK [employer] LABORATORY SERVICES - . [facility] ALBUMIN 4.6 3.5 - 5.2 g/dL 10/01/2021 10:58 AM [facility] BILIRUBIN TOTAL 0.3 0.2 - 1.1 mg/dL 10/01/2021 10:58 AM [facility] ALKALINE PHOSPHATASE 81 40 - 129 U/L 10/01/2021 10:58 AM [facility] AST 23 <41 U/L 10/01/2021 10:58 AM [facility] ALT 15 <42 U/L 10/01/2021 10:58 AM [facility] GFR >60 mL/min/1.7 3 sq meter 10/01/2021 10:58 AM [facility] Comment: eGFR has not been validated for use in the elderly (> 70 years of age), women, patients with serious co-morbid conditions, or persons with extremes of body size or muscle mass and should also be interpreted with caution in patients with acute kidney failure, dialysis dependent patients, patients reporting exceptional dietary intake (e.g. vegetarian diet, high protein diets, creatine supplementation), and patients with severe liver disease. Based on National Kidney Disease Education Program If patient is , please refer to the GFR result. GFR, >60 mL/min/1.7 3 sq meter 10/01/2021 10:58 AM [facility] ANION GAP 10 8 - 16 mmol/L 10/01/2021 10:58 AM [facility] Blood Venipuncture / Unknown 10/01/2021 10:08 AM CUSTOMER SERVICE CLERK 10/01/2021 10:20 AM [facility] - 10/01/2021 10:58 AM [facility] Samples containing indocyanine green cause interferences on Total and/or Direct Bilirubin and must not be measured. Kailyn Blood MD CHEMISTRY ORDERABLES [facility]# [id number] [address] [facility] [place] [id number] * PSA (10/01/2021 10:08 AM CUSTOMER SERVICE CLERK) PSA <0.1 <4.0 ng/mL 10/01/2021 11:48 AM CUSTOMER SERVICE CLERK [facility] Blood Venipuncture / Unknown 10/01/2021 10:08 AM CUSTOMER SERVICE CLERK 10/01/2021 10:20 AM CUSTOMER SERVICE CLERK Narrative [facility] - 10/01/2021 11:48 AM CUSTOMER SERVICE CLERK The concentration of PSA in a given specimen, as determined by assays from different manufacturers, can vary because of differences in assay methods and reagent specificity. Values obtained with different assay methods cannot be used interchangeably. The testing method in use is the WILLIAM Electrochemiluminescence Immunoassay. Kailyn Blood MD [id number] [address] [place] [address] documented in this encounter Visit Diagnoses Diagnosis Prostate cancer Malignant neoplasm of prostate Malignant neoplasm of parotid gland documented in this encounter Care Teams Utility Helicopter Repairer Relationship Specialty Start Date End Date Anirudh Craft MD [address] [facility] [address] [place] [address] PCP - General Internal Medicine 08/01/20 09/19/24 documented as of this encounter
--- OUTSIDE RECORDS SUMMARY | 2024-10-30 02:30 | XMS_ITS | Encounter Summary ---
Author Organization [facility] Address [address] [place] [address] Care Team Providers Care Mandarin Teacher Name Role Phone Anirudh Craft MD Primary Care Provider Encounter Details Date Type Department Care Team (Late Contact Info) Description 08/28/2022 Specialty Pharmacy [facility] Specialty Pharm[facility] Wing [address] [place] [address] Cherelle Hirsch, PHARMACIST Specialty Pharmacy Refill Coordination Social History [...] (Late Contact Info) Description 12/13/2024 9:45 AM DEPUTY FIRE CHIEF Office Visit [facility] Oncology and Hematology - [place] [address] [place] [address] Glenn Al MD [address] [facility] [address] [place] [address] documented as of this encounter Visit Diagnoses Not on filedocumented in this encounter Care Teams Mandarin Teacher Relationship Specialty Start Date End Date Anirudh Craft MD [address] [facility] [address] [place] [phone] PCP - General Internal Medicine 08/01/20 09/19/24 documented as of this encounter
--- OUTSIDE RECORDS SUMMARY | 2024-10-30 02:30 | XMS_ITS | Encounter Summary ---
Author Organization [facility] Address [address] [place] [address] Care Team Providers Care Therapeutic Recreation Leader Name Role Phone Anirudh Craft MD Primary Care Provider Reason for Visit * Reason Comments Chemotherapy Encounter Details Date Type Department Care Team (Late st Contact Info) Description 12/24/2022 11:00 AM CUSTOMS IMPORT SPECIALIST Office Visit [facility] Oncology and Hematology [facility] [id number] [place] [address] [place] [address] [address] Prostate cancer (Primary Dx); Cancer, metastatic to bone Social [...] Coronavirus/COVID-19? No / Unsure 12/24/2022 9:45 AM CUSTOMS IMPORT SPECIALIST documented as of this encounter Last Filed Vital Signs Vital Sign Reading Time Taken Comments Blood Pressure 102/60 12/24/2022 9:59 AM CUSTOMS IMPORT SPECIALIST Pulse 64 12/24/2022 9:59 AM CUSTOMS IMPORT SPECIALIST Temperature 36.9 ??C (98.4 ??F) 12/24/2022 9:59 AM CS T Respiratory Rate 12 12/24/2022 9:59 AM CUSTOMS IMPORT SPECIALIST Oxygen Saturation 94% 12/24/2022 9:59 AM CUSTOMS IMPORT SPECIALIST Inhaled Oxygen Concentration - - Weight 70.4 kg (155 lb 1.6 oz) 12/24/2022 9:59 A M CUSTOMS IMPORT SPECIALIST Height 167.6 cm (5' 6 ) 12/24/2022 9:59 AM CUSTOMS IMPORT SPECIALIST Body Mass Index 25.03 12/24/2022 9:59 AM CUSTOMS IMPORT SPECIALIST documented in this encounter Progress Notes * Joseph Ayala MD - 12/24/2022 11:00 AM CST Hematology Oncology CHIEF COMPLAINT: prostate cancer DATE OF INITIAL VISIT: 08/05/22 CURRENT DIAGNOSIS: prostate cancer ([facility]) DATE OF DIAGNOSIS: 07/20/12 (radical prostatectomy with Dr. Azar, [id number], Florin 4+4=8), no adjuvant therapy STAGE: IV (now metastatic to left acetabulum and possibly RLL nodule) PERFORMANCE STATUS: ECOG 0 BMI: 25.1 Smoking status: 5 pack years, quit HPI: Initial visit history: Ilan Mccauley is a 82 y.o. 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 He was in remission with no symptoms after prostatectomy. On 11/28/19, CT A/P for poor stream showed sclerotic left posterior acetabulum lesion. On 12/07/19, PET/CT showed RLL 1.5 cm nodule with SUV 2.9 and left acetabulum lesion with SUV 10.8; biopsy of bone lesion showedprostate cancer. On 12/14/19, PSA was 14.7. He saw Dr. Kailyn Blood at [place], but states he has had difficulty connecting with this Dr. He was started on Lupron and Xgeva (until Xgeva stopped September due to dental disease) on 12/21/19 and by March, PSA was undetectable. On 06/19/20 CT chest, RLL nodule was much smaller. He did not develop symptoms. Labs on 07/02/22 showed WBC 8.5, hgb 13.5, plts 213, CMP normal, PSA <0.1. Vital signs and weight stable. He denies fevers, chills, night sweats, unexplained weight loss or swollen lymph nodes, and denies chest pain or dyspnea, abdominal pain, constipation, diarrhea, red orblack stools, dysuria or hematuria. Interval history 12/24/22: WBC 8.4, hgb 13.6, plts 187, AST 77, ALT 103, ALK 93, bili 0.7, PSA <0.1. Mild night sweats each night. No bone pain. Prednisone pills too bitter for him, so changing to prednisolone. Eligard given 10/01/22. Vital signs and weight stable. PHYSICAL EXAM BP 102/60 Pulse 64 Temp 98.4 ??F (36.9 ??C) Resp 12 Ht 5' 6 (1.676 m) Wt 70.4 kg (155 lb1.6 oz) SpO2 94% BMI 25.03 kg/m?? General appearance: alert, cooperative, no distress, non-toxic Head: normocephalic, without obvious abnormality, atraumatic Eyes: conjunctivae/corneas clear, EOM's intact Nose: Nares normal. Septum midline. Mucosa normal. No drainage or sinus tenderness Neck: supple, symmetrical, trachea midline, no thyromegaly or nodule. Lymph nodes: Cervical, supraclavicular, axillary LN wnl Back: symmetric, no curvature. ROM normal. No CVA tenderness Lungs: clear to auscultation bilaterally, no rales, wheezes or rhonchi. Heart: regular rate and rhythm, S1, S2 normal, no murmur, click, rub or gallop Abdomen: soft, non-tender. Bowel sounds normal. No masses, No organomegaly Extremities: extremities normal, atraumatic, no cyanosis or edema Pulses: 2+ and symmetric Skin: Skin color, texture, turgor normal. No rashes or lesions Neuro: No obvious focal deficit Past Medical History: Diagnosis Date Allergic rhinitis BPH (benign prostatic hyperplasia) Calculus of kidney currently found through cat scan Cancer Community acquired pneumonia Erectile dysfunction Family history of prostate cancer m gf HTN (hypertension) 2009 Hyperlipidemia diet controlled Personal history of prostate cancer 06/13 s/p removal Renal artery stenosis 06/12 mild on R Past Surgical History: Procedure Laterality Date BIOPSY PROSTATE 06/13 cancer CHG ANES COLONOSCOPY,BIOPSY 2006 polyps CHG ANES COLONOSCOPY,BIOPSY 09/12 wnl, no polyps. tics HOLTER MONITOR wnl HX APPENDECTOMY age 14 HX HEART CATHETERIZATION [place] LAPS SURG [id number] RPBIC RAD W/NRV SPARING ROBOT 07/20/2012 PROSTATECTOMY RADICAL DAVINCI SI LAPAROSCOPIC performed by Giancarlo Azar MD at [facility] OR [facility] [place] UNLISTED LAPAROSCOPY PX LYMPHATIC SYSTEM 07/20/2012 LYMPH NODE DISSECTION DAVINCI SI LAPAROSCOPIC performed by Giancarlo Azar MD at [facility] OR [facility] STRESS ECHO W CONTRAST 06/12 wnl US RENAL + DOPPLER 06/12 R renal art stenosis L ok Family History Problem Relation Name Age of Onset Unknown Father Hypertension Mother Stroke Mother Heart Disease Maternal Grandmother Cancer Maternal Grandfather prostate Social History Socioeconomic History Marital status: Spouse name: Not on file Number of children: Not on file Years of education: Not on file Highest education level: Not on file Occupational History Employer: [employer] Tobacco Use Smoking status: Former Types: Cigarettes Quit date: 11/02/1967 Years since quittin.1 Smokeless tobacco: Never Vaping Use Vaping Use: Never used Substance and Sexual Activity Alcohol use: No Drug use: No Sexual activity: Yes Other Topics Concern Not on file Social History Narrative Not on file Social Determinants of Health Financial Resource Strain: Not on file Food Insecurity: Not on file Transportation Needs: Not on file Social Connections: Not on file Intimate Partner Violence: Not on file Housing Stability: Not on file Allergies Allergen Reactions Codeine Nausea and Vomiting Makes patient extremely ill Nebivolol Bradycardia Current Outpatient Medications: prednisoLONE 5 mg tablet, Take one tablet by mouth daily, Disp: 30 Tablet, Rfl: 11 abiraterone (ZYTIGA) 250 mg tablet, Take 4 Tablets (1,000 mg) by mouth daily before breakfast., Disp: 120 Tablet, Rfl: 5 albuterol sulfate 90 mcg/Actuation inhaler, Take 2 Puffs by inhalation every 4 hours as needed for Shortness of Breath. - PLEASE CALL TO SET UP A 2021 FOLLOW UP APPOINTMENT FOR ANY FURTHER REFILLS -,Disp: 8.5 Gram, Rfl: 0 coenzyme Q10 100 mg Capsule, Take 100 mg by mouth., Disp: , Rfl: rosuvastatin (CRESTOR) 20 mg tablet, Take 10 mg by mouth daily at bedtime. 10MG NOW PER PT , Disp: , Rfl: amLODIPine (NORVASC) 5 mg tablet, Take 5 mg by mouth daily., Disp: , Rfl: REVIEW OF SYSTEMS 13 organ systems reviewed and otherwise negative except for the HPI. Please see for details. Lab Results Component Value Date/Time WBC 8.4 12/24/2022 09:50 AM HGB 13.6 12/24/2022 09:50 AM HCT 40.1 12/24/2022 09:50 AM PLT 187 12/24/2022 09:50 AM MCV 97.5 12/24/2022 09:50 AM Lab Results Component Value Date/Time NA 139 12/24/2022 09:50 AM K 3.8 12/24/2022 09:50 AM CL 107 12/24/2022 09:50 AM CO2 23 12/24/2022 09:50 AM CA 9.2 12/24/2022 09:50 AM BUN 13 12/24/2022 09:50 AM CREAT 0.78 12/24/2022 09:50 AM GLUCOSE 95 12/24/2022 09:50 AM TOTALPROTEIN 6.6 12/24/2022 09:50 AM ALBUMIN 4.4 12/24/2022 09:50 AM BILITOTAL 0.7 12/24/2022 09:50 AM ALKPHOS 93 12/24/2022 09:50 AM AST 77 (H) 12/24/2022 09:50 AM ALT 103 (H) 12/24/2022 09:50 AM ANIONGAP 9 12/24/2022 09:50 AM BCRATIO NOT APPLICABLE 10/01/2022 10:09 AM No results found for: CEA Lab Results Component Value Date/Time PSA <0.1 12/24/2022 09:50 AM PSA <0.04 10/01/2022 10:09 AM PSA <0.1 07/02/2022 09:48 AM PSASCRN 1.6 09/25/2010 02:05 PM No results found for: CA125 No results found for this or any previous visit. Results for orders placed or performed during the hospital encounter of 12/07/[address] SKL BSE MID THG Narrative PET TUMOR IMG W CT SKL BSE MID THG DATE: 12/07/2019 7:32 AM Subsequent Treatment Strategy HISTORY: 79 years Male with a history of prostate carcinoma, first diagnosed in 2001, treated with prostatectomy. Recent CT imaging demonstrated left posterior acetabulum sclerotic lesion and a 1.5 cm right lower lobe pulmonary nodule. PSA levels have risen significantly. A new PET-CT study is needed for re-staging. PROCEDURE: Radiopharmaceutical: F18 FDG 8.89 mCi intravenously, via right antecubital vein Blood glucose at time of injection: 89 mg/dl Time from injection to imagin minutes CT Dose Length Product (DLP): 520.2 mGy*cm PET/CT imaging was acquired from the level of the orbits to the level of the upper thighs. CT images were acquired at 4 mm slices without the use of oral or intravenous contrast. Reported SUVs represent the maximum SUV value of the region calculated based upon body weight. COMPARISON IMAGING: Correlation is made with CT imaging dated 11/28/2019. FINDINGS: Primary PET/CT Findings: The 1.5 cm right lower lobe pulmonary nodule has an SUV of 2.9. In the setting of known recurrent prostatic carcinoma, this is strongly suspicious for metastatic disease. No other significant pulmonary nodules are present. There is intense abnormal activity at the posterior left acetabulum corresponding to the sclerosis seen on CT imaging. This has an SUV of 10.8, representing osseous metastatic disease. No other sites of osseous metastatic disease are present. Incidental PET Findings: No significant incidental PET findings. Incidental CT Findings: No significant head and neck adenopathy is present. axillary lymph node uptake bilaterally is unremarkable. Mediastinal lymph nodes are radiographically benign and without significant FDG uptake. Activity in the liver, spleen, adrenals, stomach and pancreas is physiologic. The kidneys demonstrate an expected pattern of FDG excretion. Bowel activity is physiologic. No significant pelvic or abdominal adenopathy is present. Patient is status post prostatectomy. Impression IMPRESSION: 1. Mildly FDG positive right lower lobe pulmonary nodule, suspicious for metastatic disease. 2. Intense abnormal activity in the sclerotic posterior left acetabulum, indicating unifocal osseous metastatic disease. 3. Postsurgical changes as above. DICTATION LOCATION: Location 1 - [facility] Results for orders placed during the hospital encounter of 06/19/20 CT CHEST W CONTRAST Impression : 1. The right lower lobe pulmonary nodule has markedly decreased in size. 2. Other 2 tiny pulmonary nodules in the right middle lobe and left lower lobe. 3. The ascending thoracic aortic aneurysm. DICTATION LOCATION: Location 4 ASSESSMENT/PLAN Ilan Mccauley is a 82 y.o. male with history of prostate cancer presenting for [facility], improving greatly on Lupron since December SPC - on Zytiga prednisolone since 08/05/22 - will continue q3 month Lupron - treat today and in three months; eval labs and treatment in six months Elevated LFTs - will hold Zytiga two weeks and recheck labs - if LFTs improved, will re-challenge and assess further Complex medical decision making involved. OMS IMPORT SPECIALIST documented in this encounter Plan of Treatment Upcoming Encounters Date Type Department Care Team (Late st Contact Info) Description 12/13/2024 9:45 AM CUSTOMS IMPORT SPECIALIST Office Visit [facility] Oncology and Hematology [facility] [address] [facility] [address] [place] [phone] Glenn Al MD [address] [facility] [address] [place] [address] documented as of this encounter Visit Diagnoses Diagnosis Prostate cancer- Primary Malignant neoplasm of prostate Cancer, metastatic to bone Secondary malignant neoplasm of bone and bone marrow documented in this encounter Care Teams Therapeutic Recreation Leader Relationship Specialty Start Date End Date Anirudh Craft MD [address] [facility] [address] [place] [phone] PCP - General Internal Medicine 08/01/20 09/19/24 documented as of this encounter
--- OUTSIDE RECORDS SUMMARY | 2024-10-30 02:30 | XMS_ITS | Encounter Summary ---
Author Organization [facility] Address [address] [place] [address] Care Team Providers Care Maintenance Supervisor Electrical Name Role Phone Anirudh Craft MD Primary Care Provider [phone] Encounter Details Date Type Department Care Team (Late st Contact Info) Description 08/07/2022 Specialty Pharmacy [facility] [address] [place] [address] Cherelle Hirsch, PHARMACIST Specialty Pharmacy [...] PM CDT documented as of this encounter Progress Notes * Niurka Arshad - 08/07/2022 10:09 AM CDT [facility] Initial Medication Dispense Note Ilan Mccauley 1940 Name of Medication, Strength, Formulation: ABIRATERONE 250MG TABLET Date of Initial Receipt of Medication 08/08/2022 Permission to leave delivered package. Yes 120 quantity for 30 days supply Additional information: TO RECEIVE VIA UPS SHIPPING--NO SIG documented in this encounter Plan of Treatment Upcoming Encounters Date Type Department Care Team (Late st Contact Info) Description 12/13/2024 9:45 AM ELECTRONICS ENGINEERING TECHNICIAN Office Visit [facility] Oncology and Hematology - [place] [address] [facility] [address] [place] [address] Glenn Al MD [address] [facility] [address] [place] [address] documented as of this encounter Visit Diagnoses Not on filedocumented in this encounter Care Teams Maintenance Supervisor Electrical Relationship Specialty Start Date End Date Anirudh Craft MD [address] [facility] 4 [place] [address] PCP - General Internal Medicine 08/01/20 09/19/24 documented as of this encounter
--- OUTSIDE RECORDS SUMMARY | 2024-10-30 02:30 | XMS_ITS | Encounter Summary ---
Author Organization [facility] Address [address] Fernándezn: Epic Prelude ADT [place]IL[place] [address] Care Team Providers Care Test Facility Engineer Name Role Phone Anirudh Craft MD Primary Care Provider [phone] Encounter Details Date Type Department Care Team (Latest Contact Info) Description 01/05/2023 Travel Social History Tobacco Use Types Packs/Day [...] Coronavirus/COVID-19? No / Unsure 01/05/2023 9:45 AM ELECTRONIC WIRER documented as of this encounter Plan of Treatment Upcoming Encounters Date Type Department Care Team (Late st Contact Info) Description 12/13/2024 9:45 AM ELECTRONIC WIRER Office Visit [facility] Oncology and Hematology - [place] [address] [place] [address] Glenn Al MD [address] [facility] [address] [place] [address] documented as of this encounter Visit Diagnoses Not on filedocumented in this encounter Care Teams Test Facility Engineer Relationship Specialty Start Date End Date Anirudh Craft MD [address] [address] PCP - General Internal Medicine 08/01/20 09/19/24 documented as of this encounter
--- OUTSIDE RECORDS SUMMARY | 2024-10-30 02:30 | XMS_ITS | Encounter Summary ---
Author Organization [facility] Address [address] [place] [address] Care Team Providers Care Boiler/Chiller Operator Name Role Phone Anirudh Craft MD Primary Care Provider Encounter Details Date Type Department Care Team (Latest Contact Info) Description 01/05/2023 9:46 AM BATTERY WRECKER OPERATOR - 01/05/2023 11:59 PM BATTERY WRECKER OPERATOR Hospital Encounter [facility] Laboratory Oncology Services [facility] [address] [place] [address] [place] Ay[place] [id number] [place] [address] Discharge Disposition: Home or Self Care Social [...] Coronavirus/COVID-19? No / Unsure 01/05/2023 9:45 AM BATTERY WRECKER OPERATOR documented as of this encounter Medications at [...] st Contact Info) Description 12/13/2024 9:45 AM BATTERY WRECKER OPERATOR Office Visit [facility] Oncology and Hematology [facility] [address] [place] [address] Glenn Al MD [address] [facility] [address] [place] [address] documented as of this encounter Procedures Procedure Name Priority Date/Time Associated Diagnosis Comments COMPREHENSIVE METABOLIC PANEL Stat 01/05/2023 9:57 AM BATTERY WRECKER OPERATOR Prostate cancer Cancer, metastatic to bone Elevated liver enzymes documented in this encounter Results * (ABNORMAL) COMPREHENSIVE METABOLIC PANEL (01/05/2023 9:57 AM BATTERY WRECKER OPERATOR) SODIUM 146(H) 136 - 145 mmol/L 01/05/2023 10:42 AM [facility] POTASSIUM 3.6 3.4 - 5.1 mmol/L 01/05/2023 10:42 AM [facility] CHLORIDE 111(H) 98 - 107 mmol/L 01/05/2023 10:42 AM [facility] CO2 24 22 - 29 mmol/L 01/05/2023 10:42 AM [facility] CALCIUM 9.0 8.6 - 10.4 mg/dL 01/05/2023 10:42 AM [facility] [employer] [facility] BUN 16 6 - 20 mg/dL 01/05/2023 10:42 AM [facility] [employer] [facility] CREATININE 0.67 0.67 - 1.17 mg/dL 01/05/2023 10:42 AM [facility] [employer] [facility] Comment:The GFR result is no t clinically significant on patients <18 or >70 years of age. GLUCOSE 95 74 - 99 mg/dL 01/05/2023 10:42 AM [facility] [employer] [facility] TOTAL PROTEIN 6.5 6.3 - 8.7 g/dL 01/05/2023 10:42 AM [facility] ALBUMIN 4.2 3.5 - 5.2 g/dL 01/05/2023 10:42 AM [facility] BILIRUBIN TOTAL 0.5 0.2 - 1.1 mg/dL 01/05/2023 10:42 AM [facility] ALKALINE PHOSPHATASE 84 40 - 150 U/L 01/05/2023 10:42 AM [facility] AST 94(H) 0 - 41 U/L 01/05/2023 10:42 AM [facility] ALT 125(H) 0 - 41 U/L 01/05/2023 10:42 AM [facility] GFR >60 mL/min/1.7 3 sq meter 01/05/2023 10:42 AM [facility] Comment:eGFR calculated with 2020 CKD-EPI equation. Vegetarian diet, extremely high or low muscle mass, and may affect results. Cystatin C with Glomerular Filtration Rate is a suitable alternative for these patients. ANION GAP 11 8 - 16 mmol/L 01/05/2023 10:42 AM [facility] Blood Venipuncture / Unknown 01/05/2023 9:57 AM BATTERY WRECKER OPERATOR 01/05/2023 9:57 AM BATTERY WRECKER OPERATOR Joseph Ayala MD CHEMISTRY ORDERABLES [facility] CLIA# [id number] [address] [place] [address] documented in this encounter Visit Diagnoses Diagnosis Prostate cancer Malignant neoplasm of prostate Cancer, metastatic to bone Secondary malignant neoplasm of bone and bone marrow Elevated liver enzymes Nonspecific elevation of levels of transaminase or lactic acid dehydrogenase (LDH) documented in this encounter Care Teams Boiler/Chiller Operator Relationship Specialty Start Date End Date Anirudh Craft MD [address] [address] PCP - General Internal Medicine 08/01/20 09/19/24 documented as of this encounter
--- OUTSIDE RECORDS SUMMARY | 2024-10-30 02:30 | XMS_ITS | Encounter Summary ---
Author Organization [facility] Address [address] [place] [address] Care Team Providers Care Carpenter Helper Name Role Phone Anirudh Craft MD Primary Care Provider Encounter Details Date Type Department Care Team (Late st Contact Info) Description 08/06/2022 Orders Only [facility] Oncology and Hematology [facility] [id number] [place] [address] [place] [address] [address] Social History Tobacco Use Types [...] as of this encounter Progress Notes * Brielle Ferguson RN - 08/06/2022 4:16 PM CDT Pt changed site of care to [facility] under Dr. Ayala. Brielle S Marty, RN documented in this encounter Plan of Treatment Upcoming Encounters Date Type Department Care Team (Late st Contact Info) Description 12/13/2024 9:45 AM RESIDENTIAL FEE APPRAISER Office Visit [facility] Oncology and Hematology - [place] [address] [facility] [address] [place] [address] Glenn Al MD [address] [facility] [address] [place] [address] documented as of this encounter Visit Diagnoses Not on filedocumented in this encounter Care Teams Carpenter Helper Relationship Specialty Start Date End Date Anirudh Craft MD [address] [facility] [address] [place] [address] PCP - General Internal Medicine 08/01/20 09/19/24 documented as of this encounter
--- OUTSIDE RECORDS SUMMARY | 2024-10-30 02:30 | XMS_ITS | Encounter Summary ---
Author Organization [facility] Address [address] [place] [address] Care Team Providers Care Sack Repairer Name Role Phone Anirudh Craft MD Primary Care Provider [phone] Reason for Visit * Reason Comments Establish Care Encounter Details Date Type Department Care Team (Late st Contact Info) Description 08/05/2022 1:30 PM CDT Office Visit [facility] Oncology and Hematology [facility] [address] [address] [place] [address] [address] Prostate cancer (Primary Dx) Social History Tobacco [...] Sign Reading Time Taken Comments Blood Pressure 122/70 08/05/2022 1:24 PM CDT Pulse 60 08/05/2022 1:24 PM CDT Temperature 36.5 ??C (97.7 ??F) 08/05/2022 1:24 PM CD T Respiratory Rate 16 08/05/2022 1:24 PM CDT Oxygen Saturation - - Inhaled Oxygen Concentration - - Weight 70.6 kg (155 lb 11.2 oz) 08/05/2022 1:24 PM CDT Height 167.6 cm (5' 6 ) 08/05/2022 1:24 PM CDT Body Mass Index 25.13 08/05/2022 1:24 PM CDT documented in this encounter Progress Notes * Joseph Ayala MD - 08/05/2022 1:03 PM CDT Hematology Oncology CHIEF COMPLAINT: prostate cancer DATE OF INITIAL VISIT: 08/05/22 CURRENT DIAGNOSIS: prostate cancer ([facility]) DATE OF DIAGNOSIS: 07/20/12 (radical prostatectomy with Dr. Azar, [id number], Florin 4+4=8), no adjuvant therapy STAGE: IV (now metastatic to left acetabulum and possibly RLL nodule) PERFORMANCE STATUS: ECOG 0 BMI: 25.1 Smoking status: 5 pack years, quit HPI: Initial visit history: Ilan Mccauley is a 81 y.o. male with history of BPH, kidney [...] 14.7. He saw Dr. Kailyn Blood at [place], but states he has had difficulty connecting [...] diarrhea, red orblack stools, dysuria or hematuria. PHYSICAL EXAM BP 122/70 Pulse 60 Temp 97.7 ??F (36.5 ??C) (Oral) Resp 16 Ht 5' 6 (1.676 m) Wt 70.6 kg (155 lb 11.2 oz) BMI 25.13 kg/m?? General appearance: alert, cooperative, no distress, [...] HX APPENDECTOMY age 14 HX HEART CATHETERIZATION VA LAP,LYMPHATIC SYSTEM,OTHER PROC 07/20/2012 LYMPH NODE DISSECTION DAVINCI SI LAPAROSCOPIC performed by Giancarlo Azar MD at [facility] OR MAIN VA LAP,PROSTATECTOMY,RADICAL,W/NERVE SPARE,INCL ROBOTIC 07/20/2012 PROSTATECTOMY RADICAL DAVINCI SI LAPAROSCOPIC performed by Giancarlo Azar MD at [facility] [place] OR MAIN STRESS ECHO W CONTRAST 06/12 wnl US [...] level: Not on file Occupational History Employer: [employer] Tobacco Use Smoking status: Former Types: Cigarettes Quit date: 11/02/1967 Years since quittin.8 Smokeless tobacco: Never Vaping Use Vaping Use: Never used Substance and Sexual Activity Alcohol use: No Drug use: No Sexual activity: Yes Other Topics Concern Not on file Social History Narrative Not on file Social Determinants of Health Financial Resource Strain: Not on file Food Insecurity: Not on file Transportation Needs: Not on file Physical Activity: Not on file Stress: Not on file Social Connections: Not on file Intimate Partner Violence: Not on file Housing Stability: Not on file Allergies Allergen Reactions Codeine Nausea and Vomiting Makes patient extremely ill Nebivolol Bradycardia Current Outpatient Medications: ondansetron (Zofran) 4 mg Tablet, Take 1 Tablet (4 mg) by mouth every 8 hours as needed for Nausea/Emesis., Disp: 30 Tablet, Rfl: 3 abiraterone (ZYTIGA) 250 mg tablet, Take 4 Tablets (1,000 mg) by mouth daily before breakfast., Disp: 120 Tablet, Rfl: 5 predniSONE (DELTASONE) 5 mg tablet, Take 1 Tablet (5 mg) by mouth daily., Disp: 90 Tablet, Rfl: 5 albuterol sulfate 90 mcg/Actuation [...] details. Lab Results Component Value Date/Time WBC 8.5 07/02/2022 09:48 AM HGB 13.5 (L) 07/02/2022 09:48 AM HCT 41.1 07/02/2022 09:48 AM PLT 213 07/02/2022 09:48 AM MCV 98.8 07/02/2022 09:48 AM Lab Results Component Value Date/Time NA 142 07/02/2022 09:48 AM K 4.0 07/02/2022 09:48 AM CL 105 07/02/2022 09:48 AM CO2 26 07/02/2022 09:48 AM CA 9.6 07/02/2022 09:48 AM BUN 16 07/02/2022 09:48 AM CREAT 0.74 07/02/2022 09:48 AM GLUCOSE 91 07/02/2022 09:48 AM TOTALPROTEIN 7.0 07/02/2022 09:48 AM ALBUMIN 4.8 07/02/2022 09:48 AM BILITOTAL 0.3 07/02/2022 09:48 AM ALKPHOS 94 07/02/2022 09:48 AM AST 26 07/02/2022 09:48 AM ALT 18 07/02/2022 09:48 AM ANIONGAP 11 07/02/2022 09:48 AM No results found for: CEA Lab Results Component Value Date/Time PSA <0.1 07/02/2022 09:48 AM PSA <0.1 04/01/2022 09:10 AM PSA <0.1 12/30/2021 09:55 AM PSASCRN 1.6 09/25/2010 02:05 PM No [...] as above. DICTATION LOCATION: Location 1 - [facility] Results for orders placed during the hospital encounter of 06/19/20 CT CHEST W CONTRAST Impression : 1. The right lower lobe pulmonary nodule has markedly decreased in size. 2. Other 2 tiny pulmonary nodules in the right middle lobe and left lower lobe. 3. The ascending thoracic aortic aneurysm. DICTATION LOCATION: Location 4 ASSESSMENT/PLAN Ilan Mccauley is a 81 y.o. male with history of prostate cancer presenting for [facility], improving greatly on Lupron since December [facility] - I am happy to see Mr. Mccauley if he prefers this - he is a candidate for addition of Zytiga prednisone to his current regimen, which is associated with improved overall survival per STAMPEDE trial, so ordered this 08/05/22 - will continue q3 month Lupron - MD ryan in three months with labs prior to ensure he is tolerating and responding to therapy (cangive Lupron when due as well, around 09/21/22) Thank you for this referral. Please contact me with any questions. Joseph Ayala MD Hematology/Oncology [phone] documented in this encounter Plan of Treatment Upcoming Encounters Date Type Department Care Team (Late st Contact Info) Description 12/13/2024 9:45 AM BANDER HAND Office Visit [facility] Oncology and Hematology [facility] [address] [place] [address] [address] Glenn Al MD [address] [facility] [address] [place] [address] documented as of this encounter Visit Diagnoses Diagnosis Prostate cancer- Primary Malignant neoplasm of prostate documented in this encounter Care Teams Sack Repairer Relationship Specialty Start Date End Date Anirudh Craft MD [address] [facility] 4 [place] [phone] PCP - General Internal Medicine 08/01/20 09/19/24 documented as of this encounter
--- OUTSIDE RECORDS SUMMARY | 2024-10-30 02:30 | XMS_ITS | Encounter Summary ---
Author Organization [facility] Address [address] [place] [address] Care Team Providers Care Scrub Tech Name Role Phone Anirudh Craft MD Primary Care Provider Encounter Details Date Type Department Care Team (Latest Contact Info) Description 12/30/2021 9:48 AM ONLINE CONTENT COORDINATOR - 12/30/2021 11:59 PM ONLINE CONTENT COORDINATOR Hospital Encounter [facility] Laboratory Services [facility] [address], [address] [place] [address] Kailyn Blood MD [address] [place] [address] Discharge Disposition: Home or Self [...] COVID-19? No / Unsure 12/30/2021 9:47 AM ONLINE CONTENT COORDINATOR documented as of this encounter Medications at [...] st Contact Info) Description 12/13/2024 9:45 AM ONLINE CONTENT COORDINATOR Office Visit [facility] Oncology and Hematology [facility] [address] [facility] [address] [place] [address] Glenn Al MD [address] [facility] [address] [place] [address] documented as of this encounter Procedures Procedure Name Priority Date/Time Associated Diagnosis Comments CBC WITH DIFFERENTIAL Stat 12/30/2021 9:55 AM ONLINE CONTENT COORDINATOR 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 POTASSIUM 4.3 3.5 - 5.0 mmol/L 12/30/2021 10:57 AM ONLINE CONTENT COORDINATOR [facility] CHLORIDE 105 98 - 107 mmol/L 12/30/2021 10:57 AM [facility] CO2 28 22 - 29 mmol/L 12/30/2021 10:57 AM [facility] CALCIUM 9.9 8.6 - 10.2 mg/dL 12/30/2021 10:57 AM [facility] BUN 16 8 - 23 mg/dL 12/30/2021 10:57 AM [facility] - [facility] CREATININE 0.74 0.67 - 1.17 mg/dL 12/30/2021 10:57 AM [facility] - [facility] Comment:The GFR result is no t clinically significant on patients <18 or >70 years of age. GLUCOSE 103(H) 74 - 99 mg/dL 12/30/2021 10:57 AM [facility] - [facility] TOTAL PROTEIN 7.3 6.7 - 8.6 g/dL 12/30/2021 10:57 AM [facility] - [facility] ALBUMIN 4.7 3.5 - 5.2 g/dL 12/30/2021 10:57 AM [facility] - . [facility] BILIRUBIN TOTAL 0.3 0.2 - 1.1 mg/dL 12/30/2021 10:57 AM [facility] ALKALINE PHOSPHATASE 109 40 - 129 U/L 12/30/2021 10:57 AM [facility]. [facility] AST 22 <41 U/L 12/30/2021 10:57 AM [facility] ALT 16 <42 U/L 12/30/2021 10:57 AM ONLINE CONTENT COORDINATOR [facility] GFR >60 mL/min/1. 73 sq meter 12/30/2021 10:57 AM [facility] Comment: eGFR calculated with 2020 CKD-EPI equation. ??Vegetarian diet, extremely high or low muscle mass, and may affect results. ??Cystatin C with Glomerular Filtration Rate is a suitable alternative for these patients. The National Kidney Foundation and the [place] Society of Nephrology (NKF-ASN) recommends using the 2020 CKD Epidemiology Collaboration (CKD-EPI) equation to calculate estimated glomerular filtration rate (eGFR). This equation is only applicable to [place] adult patients and removes race as a variable. ??Due to the variation of creatinine in different conditions, they recommend use of confirmatory tests such as eGFR from cystatin C or creatinine-cystatin GFR estimating equations, or direct measurement of clearance of an exogenous filtration marker in critical clinical decisions including but not limited to drug dosing, surgery, chemotherapy, and transplant referral. ANION GAP 12 8 - 16 mmol/L 12/30/2021 10:57 AM [facility] Blood Venipuncture / Unknown 12/30/2021 9:55 AM [facility] 12/30/2021 10:14 AM [facility] [email or web address] [facility] - 12/30/2021 10:57 AM [facility] Samples containing indocyanine green cause interferences on Total and/or Direct Bilirubin and must not be measured. Kailyn Blood MD CHEMISTRY ORDERABLES [facility] [email or web address] [facility] CLIA# [id number] [address] [facility] [place] [address] * (ABNORMAL) CBC WITH DIFFERENTIAL (12/30/2021 9:55 AM [facility]) WBC 7.5 4.0 - 9.8 K/uL 12/30/2021 10:09 AM [facility] [email or web address] [facility] RBC 4.06(L) 4.50 - 5.40 M/uL 12/30/2021 10:09 AM [facility] [email or web address] [facility]. [facility] HEMOGLOBIN 13.4(L) 13.6 - 16.5 g/dL 12/30/2021 10:09 AM [facility] [email or web address] [facility]. [facility] HEMATOCRIT 40.5 40.0 - 48.0 % 12/30/2021 10:09 AM [facility] [email or web address] [facility]. [facility] MCV 99.8(H) 82.0 - 99.0 fL 12/30/2021 10:09 AM [facility] [email or web address] [facility] MCH 33.0(H) 27.2 - 32.6 pg 12/30/2021 10:09 AM [facility] [email or web address] [facility] MCHC 33.1 31.5 - 35.5 g/dL 12/30/2021 10:09 AM [facility] [employer] [facility] RDW 12.5 11.5 - 14.5 % 12/30/2021 10:09 AM [facility] [email or web address] [facility]. [facility] RDW-STDEV 45.9 37.1 - 48.7 fL 12/30/2021 10:09 AM [facility] [employer] [facility] PLATELETS 211 140 - 350 K/uL 12/30/2021 10:09 AM ONLINE CONTENT COORDINATOR [facility] MPV 10.7 9.3 - 12.4 fL 12/30/2021 10:09 AM ONLINE CONTENT COORDINATOR [facility] NEUTROPHILS 47 % 12/30/2021 10:09 AM [facility] LYMPHOCYTES 36 % 12/30/2021 10:09 AM ONLINE CONTENT COORDINATOR [facility] MONOCYTES 10 % 12/30/2021 10:09 AM [facility] EOSINOPHILS 6 % 12/30/2021 10:09 AM ONLINE CONTENT COORDINATOR [facility] BASOPHILS 1 % 12/30/2021 10:09 AM ONLINE CONTENT COORDINATOR [employer] [facility] - [facility] IMMATURE GRANULOCYTES 0 % 12/30/2021 10:09 AM [facility] NEUTROPHIL ABSOLUTE 3.52 1.90 - 7.00 K/uL 12/30/2021 10:09 AM ONLINE CONTENT COORDINATOR [facility] LYMPHOCYTE ABSOLUTE 2.73 0.70 - 4.50 K/uL 12/30/2021 10:09 AM ONLINE CONTENT COORDINATOR [facility] MONOCYTE ABSOLUTE 0.73 0.10 - 1.30 K/uL 12/30/2021 10:09 AM ONLINE CONTENT COORDINATOR [facility] EOSINOPHIL ABSOLUTE 0.45 0.00 - 0.70 K/uL 12/30/2021 10:09 AM ONLINE CONTENT COORDINATOR [facility] BASOPHILS ABSOLUTE 0.04 0.00 - 0.20 K/uL 12/30/2021 10:09 AM [facility] IMMATURE GRANULOCYTES ABSOLUTE 0.02 0.00 - 0.03 K/uL 12/30/2021 10:09 AM ONLINE CONTENT COORDINATOR [employer] [facility] Blood Venipuncture / Unknown 12/30/2021 9:55 AM ONLINE CONTENT COORDINATOR 12/30/2021 10:04 AM ONLINE CONTENT COORDINATOR Kailyn Blood MD HEMATOLOGY ORDERABLE S [employer] SERVICES - [facility] CLIA# [id number] [address] [place] [address] * PSA (12/30/2021 9:55 AM ONLINE CONTENT COORDINATOR) PSA <0.1 <4.0 ng/mL 12/30/2021 11:01 AM [facility] Blood Venipuncture / Unknown 12/30/2021 9:55 AM ONLINE CONTENT COORDINATOR 12/30/2021 10:14 AM ONLINE CONTENT COORDINATOR Narrative [facility] - 12/30/2021 11:01 AM ONLINE CONTENT COORDINATOR The concentration of PSA in a given specimen, as determined by assays from different manufacturers, can vary because of differences in assay methods and reagent specificity. Values obtained with different assay methods cannot be used interchangeably. The testing method in use is the WILLIAM Electrochemiluminescence Immunoassay. Kailyn Blood MD CHEMISTRY ORDERABLES [facility] CLIA# [id number] [address] [place] [address] documented in this encounter Visit Diagnoses Diagnosis Prostate cancer Malignant neoplasm of prostate Malignant neoplasm of parotid gland documented in this encounter Care Teams Scrub Tech Relationship Specialty Start Date End Date Anirudh Craft MD [address] [phone] PCP - General Internal Medicine 08/01/20 09/19/24 documented as of this encounter
--- OUTSIDE RECORDS SUMMARY | 2024-10-30 02:30 | XMS_ITS | Encounter Summary ---
Author Organization [facility] Address [address] [place] [address] Care Team Providers Care Personal Chef Name Role Phone Anirudh Craft MD Primary Care Provider [phone] Encounter Details Date Type Department Care Team (Late st Contact Info) Description 08/06/2022 Specialty Pharmacy [facility] [address] [facility] [address] [place] [address] Cherelle Hirsch, PHARMACIST Specialty Pharmacy Prior Auth Coordination Social History Tobacco Use Types Packs/Day [...] this encounter Progress Notes * Niurka Arshad P - 08/07/2022 8:43 AM CDT [facility] Prior Authorization Approval Note Ilan Mccauley 1940 Name of medication, strength, formulation: ABIRATERONE 250MG TABLET Quantity 120 for 30 days supply Prior authorization approval effective dates: from 08/06/2022 to 08/05/2025 Diagnosis & ICD 10 Code: PROSTATE C61 Per Tactical Response Group Officer: JOSUÉ Additional information: [employer] $9.60 Approval letter scanned into chart. Completed by: Niurka Arshad documented in this encounter Plan of Treatment Upcoming Encounters Date Type Department Care Team (Late st Contact Info) Description 12/13/2024 9:45 AM TISSUE RECOVERY TECHNICIAN Office Visit [facility] Oncology and Hematology - [place] [address] [facility] [address] [place] [address] Glenn Al MD [address] [facility] [address] [place] [address] documented as of this encounter Visit Diagnoses Not on filedocumented in this encounter Care Teams Personal Chef Relationship Specialty Start Date End Date Anirudh Craft MD [address] [facility] 4 [place] [phone] PCP - General Internal Medicine 08/01/20 09/19/24 documented as of this encounter
--- OUTSIDE RECORDS SUMMARY | 2024-10-30 02:30 | XMS_ITS | Encounter Summary ---
Author Organization [facility] Address [address] [place] [address] Care Team Providers Care Elevator Operator Service Name Role Phone Anirudh Craft MD Primary Care Provider Encounter Details Date Type Department Care Team (Late Contact Info) Description 08/06/2022 Orders Only [facility] Oncology and Hematology [address] [address] Brielle Ferguson RN Prostate cancer Social History Tobacco Use Types [...] (Late Contact Info) Description 12/13/2024 9:45 AM PUBLIC SPEAKER Office Visit [facility] Oncology and Hematology [facility] [address] [facility] [address] [place] [address] Glenn Al MD [address] [facility] [address] [place] [address] documented as of this encounter Visit Diagnoses Diagnosis Prostate cancer Malignant neoplasm of prostate documented in this encounter Care Teams Elevator Operator Service Relationship Specialty Start Date End Date Anirudh Craft MD [address] [facility] 4 [place] [phone] PCP - General Internal Medicine 08/01/20 09/19/24 documented as of this encounter
--- OUTSIDE RECORDS SUMMARY | 2024-10-30 02:30 | XMS_ITS | Encounter Summary ---
Author Organization [facility] Address [address] [place] [address] Care Team Providers Care Guest Service Manager Name Role Phone Anirudh Craft MD Primary Care Provider Encounter Details Date Type Department Care Team (Late Contact Info) Description 01/05/2023 Orders Only [facility] Oncology and Hematology [facility] [address] [address] [place] [address] [address] Prostate cancer (Primary Dx); Cancer, metastatic to bone; Elevated liver enzymes Social History Tobacco Use Types Packs/Day Years [...] Coronavirus/COVID-19? No / Unsure 12/24/2022 9:45 AM LABORER [employer] documented as of this encounter Plan of Treatment Upcoming Encounters Date Type Department Care Team (Late st Contact Info) Description 12/13/2024 9:45 AM LAB[employer] Office Visit [facility] Oncology and Hematology [facility] [address] [place] [address] Glenn Al MD [address] [facility] [address] [place] [address] documented as of this encounter Results * (ABNORMAL) COMPREHENSIVE METABOLIC PANEL (01/05/2023 9:57 AM [employer]) SODIUM 146(H) 136 - 145 mmol/L 01/05/2023 10:42 AM [facility] [employer] [facility] POTASSIUM 3.6 3.4 - 5.1 mmol/L 01/05/2023 10:42 AM [facility] [employer] [facility] CHLORIDE 111(H) 98 - 107 mmol/L 01/05/2023 10:42 AM [facility] [employer] [facility] CO2 24 22 - 29 mmol/L 01/05/2023 10:42 AM [facility] [employer] [facility] CALCIUM 9.0 8.6 - 10.4 mg/dL 01/05/2023 10:42 AM [facility] [employer] [facility] BUN 16 6 - 20 mg/dL 01/05/2023 10:42 AM [facility] [employer] [facility] CREATININE 0.67 0.67 - 1.17 mg/dL 01/05/2023 10:42 AM [facility] Comment:The GFR result is no t clinically significant on patients <18 or >70 years of age. GLUCOSE 95 74 - 99 mg/dL 01/05/2023 10:42 AM [facility] TOTAL PROTEIN 6.5 6.3 - 8.7 g/dL 01/05/2023 10:42 AM [facility] ALBUMIN 4.2 3.5 - 5.2 g/dL 01/05/2023 10:42 AM [facility] [employer] [facility] BILIRUBIN TOTAL 0.5 0.2 - 1.1 mg/dL 01/05/2023 10:42 AM [facility] ALKALINE PHOSPHATASE 84 40 - 150 U/L 01/05/2023 10:42 AM [facility] [employer] [facility] AST 94(H) 0 - 41 U/L 01/05/2023 10:42 AM [facility] ALT 125(H) 0 - 41 U/L 01/05/2023 10:42 AM [facility] GFR >60 mL/min/1.7 3 sq meter 01/05/2023 10:42 AM [facility] Comment:eGFR calculated with 2020 CKD-EPI equation. Vegetarian diet, extremely high or low muscle mass, and may affect results. Cystatin C with Glomerular Filtration Rate is a suitable alternative for these patients. 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
--- OUTSIDE RECORDS SUMMARY | 2024-10-30 02:30 | XMS_ITS | Encounter Summary ---
Author Organization [facility] Address [address] [place] [address] Care Team Providers Care Systems Software Specialist Name Role Phone Anirudh Craft MD Primary Care Provider Reason for Referral * Radiology Services (Routine) - Closed Specialty Diagnoses / Procedures Referred By Contac t Referred To Contact Radiology Diagnoses Elevated liver enzymes Prostate cancer Procedures [place] [address] [address] [facility] [address] [facility] [place] [address] Referral ID Status Reason Start Date Expiration Date Visits Re quested Visits Authorized [id number] Closed 01/07/2023 02/07/2024 1 1 OLOGY DIRECTOR Encounter Details Date Type Department Care Team (Late st Contact Info) Description 01/07/2023 Orders Only [facility] Oncology and Hematology [facility] [address] [address] [place] [address] [address] Elevated liver enzymes (Primary Dx); Prostate cancer; Elevation of levels of liver transaminase levels Social History Tobacco Use Types Packs/Day Years [...] Coronavirus/COVID-19? No / Unsure 01/05/2023 9:45 AM AUDIOLOGY DIRECTOR documented as of this encounter Plan of Treatment Upcoming Encounters Date Type Department Care Team (Late st Contact Info) Description 12/13/2024 9:45 AM AUDIOLOGY DIRECTOR Office Visit [facility] Oncology and Hematology - [place] [address] [facility] [address] [place] [address] Glenn Al MD [address] [facility] [address] [place] [address] documented as of this encounter Procedures Procedure Name Priority Date/Time Associated Diagnosis Comments ACUTE HEPATITIS PANEL Routine 01/13/2023 12:12 PM CDT Elevated liver enzymes Prostate cancer Elevation of levels of liver transaminase levels documented in this encounter Results * US ABDOMEN LIMITED (01/15/2023 10:54 AM CDT) Anatomical Region Laterality Modality Abdomen Ultrasound 01/15/2023 10:5 4 AM CDT Impressions 01/15/2023 11:55 AM CDT IMPRESSION: 1. No evidence of cholelithiasis or cholecystitis. ?? 2. Diffuse hepatic steatosis without evidence of solid hepatic lesion or intrahepatic biliary ductal dilatation. DICTATION LOCATION: Location 7 [facility] Narrative 01/15/2023 11:55 AM CDT EXAMINATION: US ABDOMEN LIMITED DATE: 01/15/2023 10:54 AM HISTORY: ; Elevated liver enzymes; Prostate cancer COMPARISON: CT abdomen pelvis dated 11/28/2019 FINDINGS: The visible pancreas is normal in echogenicity. The liver is increased in echogenicity, consistent with diffuse hepatic steatosis. No solid hepatic mass or intrahepatic biliary ductal dilatation is seen. ?? Gallbladder wall is normal at less than 3 mm. Focal calcification is again seen along the gallbladder wall. No gallstones. No surrounding fluid. Common bile duct is normal at 2 mm. Limited views of the right kidney reveal no evidence of nephrolithiasis or hydronephrosis. There is a 1.6 cm right renal cyst. No ascites is present. ?? Procedure Note Ilan Joseph MD - 01/15/2023 EXAMINATION: US ABDOMEN LIMITED DATE: 01/15/2023 10:54 AM HISTORY: ; Elevated liver enzymes; Prostate cancer COMPARISON: CT abdomen pelvis dated 11/28/2019 FINDINGS: The visible pancreas is normal in echogenicity. The liver is increased in echogenicity, consistent with diffuse hepatic steatosis. No solid hepatic mass or intrahepatic biliary ductal dilatation is seen. Gallbladder wall is normal at less than 3 mm. Focal calcification is again seen along the gallbladder wall. No gallstones. No surrounding fluid. Common bile duct is normal at 2 mm. Limited views of the right kidney reveal no evidence of nephrolithiasis or hydronephrosis. There is a 1.6 cm right renal cyst. No ascites is present. IMPRESSION: 1. No evidence of cholelithiasis or cholecystitis. 2. Diffuse hepatic steatosis without evidence of solid hepatic lesion or intrahepatic biliary ductal dilatation. DICTATION LOCATION: [address] Joseph Ayala MD US ORDERABLES * ACUTE HEPATITIS PANEL (01/13/2023 12:12 PM CDT) HEPATITIS A IGM NON-REACTI VE NON-REACT BENJY [facility] Comment: For additional information, please refer to http://education.[employer].Tourjive/faq/CMP558 (This link is being provided for informational/ educational purposes only.) HEPATITIS B SURFACE AG NON-REACTI VE NON-REACT BENJY [facility] HEPATITIS B CORE IGM NON-REACTI VE NON-REACT BENJY [facility] HEPATITIS C AB NON-REACTI VE NON-REACT BENJY [facility] SIGNAL TO CUT OFF 0.03 <1.00 [facility] Comment: HCV antibody was non-reactive. There is no laboratory evidence of HCV infection. In most cases, no further action is required. However, if recent HCV exposure is suspected, a test for HCV RNA (test code 26328) is suggested. For additional information please refer to http://education.[employer]/faq/UCZ86y4 (This link is being provided for informational/ educational purposes only.) Test Performed at: [facility] [address] [place], [place] ??[address] Danie Sheldon MD Blood 01/13/2023 12:1 2 PM CDT 01/13/2023 12:12 PM CDT Joseph Ayala MD CHEMISTRY ORDERABLES Performing Organization Address City/State/[facility] Co de Phone Number [facility] [phone] [address] documented in this encounter Visit Diagnoses Diagnosis Elevated liver enzymes- Primary Nonspecific elevation of levels of transaminase or lactic acid dehydrogenase (LDH) Prostate cancer Malignant neoplasm of prostate Elevation of levels of liver transaminase levels Elevated liver enzymes Nonspecific elevation of levels of transaminase or lactic acid dehydrogenase (LDH) Prostate cancer Malignant neoplasm of prostate documented in this encounter Care Teams Systems Software Specialist Relationship Specialty Start Date End Date Anirudh Craft MD [address] [address] PCP - General Internal Medicine 08/01/20 09/19/24 documented as of this encounter
--- OUTSIDE RECORDS SUMMARY | 2024-10-30 02:30 | XMS_ITS | Encounter Summary ---
Author Organization [facility] Address [address] [place] [address] Care Team Providers Care Import Coordination And Production Head Name Role Phone Anirudh Craft MD Primary Care Provider [phone] Encounter Details Date Type Department Care Team (Late Contact Info) Description 01/15/2023 Orders Only [facility] Oncology and Hematology [facility] [address] [address] [place] [address] [address] Elevated liver enzymes (Primary Dx) Social History Tobacco Use Types [...] suspected to have Coronavirus/COVID-19? No / Unsure 01/08/2023 8:22 AM HAND VIOLIN MAKER documented as of this encounter Plan of Treatment Upcoming Encounters Date Type Department Care Team (Late st Contact Info) Description 12/13/2024 9:45 AM HAND VIOLIN MAKER Office Visit [facility] Oncology and Hematology [place] [address] [address] [place] [address] Glenn Al MD 5115 [facility] [address] [place] [address] documented as of this encounter Procedures Procedure Name Priority Date/Time Associated Diagnosis Comments COMPREHENSIVE METABOLIC PANEL Routine 01/15/2023 11:04 AM CDT Elevated liver enzymes documented in this encounter Results * (ABNORMAL) COMPREHENSIVE METABOLIC PANEL (01/15/2023 11:04 AM CDT) GLUCOSE 83 65 - 99 mg/dL [facility] Comment: ? Fasting reference interval BUN 18 7 - 25 mg/dL [facility] CREATININE 0.77 0.70 - 1.22 mg/dL [facility] GFR 89 > OR = 60 mL/min/1 .73m2 [facility] Comment: The eGFR is based on the CKD-EPI 2020 equation. To calculate the new eGFR from a previous Creatinine or Cystatin C result, go to https://www.kidney.org/professionals/ kdoqi/gfr%5Fcalculator BUN/CREAT RATIO NOT APPLICABLE 6 - 22 (calc) [facility] SODIUM 144 135 - 146 mmol/L [facility] POTASSIUM 3.8 3.5 - 5.3 mmol/L [facility] CHLORIDE 108 98 - 110 mmol/L [facility] CO2 28 20 - 32 mmol/L [facility] CALCIUM 9.1 8.6 - 10.3 mg/dL [facility] TOTAL PROTEIN 6.2 6.1 - 8.1 g/dL [facility] ALBUMIN 4.2 3.6 - 5.1 g/dL [facility] GLOBULIN 2.0 1.9 - 3.7 g/dL (calc) [facility] ALBUMIN/GLOBULIN RATIO 2.1 1.0 - 2.5 (calc) [facility] BILIRUBIN TOTAL 0.7 0.2 - 1.2 mg/dL [facility] ALKALINE PHOSPHATASE 73 35 - 144 U/L [facility] AST 75(H) 10 - 35 U/L [facility] ALT 86(H) 9 - 46 U/L [facility] Comment: Test Performed at: [facility] [address] ??[phone] Danie Sheldon Blood 01/15/2023 11:0 4 AM CDT 01/15/2023 11:07 AM CDT Joseph Ayala MD CHEMISTRY ORDERABLES [facility] [phone] [place] [address] [address] [place] [address] documented in this encounter Visit Diagnoses Diagnosis Elevated liver enzymes- Primary Nonspecific elevation of levels of transaminase or lactic acid dehydrogenase (LDH) documented in this encounter Care Teams Import Coordination And Production Head Relationship Specialty Start Date End Date Anirudh Craft MD [address] [address] PCP - General Internal Medicine 08/01/20 09/19/24 documented as of this encounter
--- OUTSIDE RECORDS SUMMARY | 2024-10-30 02:30 | XMS_ITS | Encounter Summary ---
Author Organization [facility] Address [address] [place] [address] Care Team Providers Care Cold Roll Catcher Name Role Phone Anirudh Craft MD Primary Care Provider [phone] Encounter Details Date Type Department Care Team (Late Contact Info) Description 08/11/2022 Orders Only [facility] Oncology and Hematology [facility] [address] [address] [place] [address] [address] Prostate cancer (Primary Dx); Cancer, [...] (Late Contact Info) Description 12/13/2024 9:45 AM DYE RANGE OPERATOR CLOTH Office Visit [facility] Oncology and Hematology - [place] [address] [place] [address] Glenn Al MD 2227 [facility] [address] [place] [address] documented as of this encounter Results * PSA (10/01/2022 10:09 AM DYE RANGE OPERATOR CLOTH) Pathologist [facility] PSA <0.04 < OR = 4.00 ng/mL [facility] Comment: The total PSA value from this assay system is standardized against the WHO standard. The test result will be approximately 20% lower when compared to the equimolar-standardized total PSA (Herbie Gustavo). Comparison of serial PSA results should be interpreted with this fact in mind. This test was performed using the Siemens chemiluminescent method. Values obtained from different assay methods cannot be used interchangeably. PSA levels, regardless of value, should not be interpreted as absolute evidence of the presence or absence of disease. Test Performed at: [facility] ??[address] Neri Ruiz D.O., MPH Blood 10/01/2022 10:0 9 AM DYE RANGE OPERATOR CLOTH 10/01/2022 10:13 AM DYE RANGE OPERATOR CLOTH Joseph Ayala MD CHEMISTRY ORDERABLES [facility] [phone] [address] * COMPREHENSIVE METABOLIC PANEL (10/01/2022 10:09 AM DYE RANGE OPERATOR CLOTH) Pathologist [facility] GLUCOSE 99 65 - 99 mg/dL [facility] Comment: ? Fasting reference interval BUN 15 7 - 25 mg/dL [facility] CREATININE 0.88 0.70 - 1.22 mg/dL [facility] GFR 86 > OR = 60 mL/min/1 .73m2 [facility] Comment: The eGFR is based on the CKD-EPI 2020 equation. To calculate the new eGFR from a previous Creatinine or Cystatin C result, go to https://www.kidney.org/professionals/ kdoqi/gfr%5Fcalculator BUN/CREAT RATIO NOT APPLICABLE 6 - 22 (calc) [facility] SODIUM 140 135 - 146 mmol/L [facility] POTASSIUM 3.9 3.5 - 5.3 mmol/L [facility] CHLORIDE 106 98 - 110 mmol/L [facility] CO2 24 20 - 32 mmol/L [facility] CALCIUM 9.5 8.6 - 10.3 mg/dL [facility] TOTAL PROTEIN 6.7 6.1 - 8.1 g/dL [facility] ALBUMIN 4.7 3.6 - 5.1 g/dL [facility] GLOBULIN 2.0 1.9 - 3.7 g/dL (calc) [facility] ALBUMIN/GLOBULIN RATIO 2.4 1.0 - 2.5 (calc) [facility] BILIRUBIN TOTAL 0.8 0.2 - 1.2 mg/dL [facility] ALKALINE PHOSPHATASE 81 35 - 144 U/L [facility] AST 28 10 - 35 U/L [facility] ALT 17 9 - 46 U/L [facility] Comment: Test Performed at: [facility] [place] [address] [address] [place], [place] ??[address] RadhaMarySara Crespo Pito Blood 10/01/2022 10:0 9 AM DYE RANGE OPERATOR CLOTH 10/01/2022 10:13 AM DYE RANGE OPERATOR CLOTH Joseph Ayala MD CHEMISTRY ORDERABLES [facility] [phone] [place] [address] [place] [address] * (ABNORMAL) CBC WITH DIFFERENTIAL (10/01/2022 10:09 AM DYE RANGE OPERATOR CLOTH) WBC 9.0 3.8 - 10.8 Thousand/ uL [facility] RBC 4.08(L) 4.20 - 5.80 Million/u L [facility] HEMOGLOBIN 13.3 13.2 - 17.1 g/dL [facility] HEMATOCRIT 40.4 38.5 - 50.0 % [facility] MCV 99.0 80.0 - 100.0 fL [facility] MCH 32.6 27.0 - 33.0 pg [facility] MCHC 32.9 32.0 - 36.0 g/dL [facility] RDW 12.7 11.0 - 15.0 % [facility] PLATELETS 211 140 - 400 Thousand/ uL [facility] MPV 11.7 7.5 - 12.5 fL [facility] NEUTROPHIL ABSOLUTE 6,642 1,500 - 7,800 cells/uL [facility] LYMPHOCYTE ABSOLUTE 1,755 850 - 3,900 cells/uL [facility] MONOCYTE ABSOLUTE 495 200 - 950 cells/uL [facility] EOSINOPHIL ABSOLUTE 81 15 - 500 cells/uL [facility] BASOPHILS ABSOLUTE 27 0 - 200 cells/uL [facility] NEUTROPHIL 73.8 % [facility] LYMPHOCYTES 19.5 % [facility] MONOCYTE 5.5 % [facility] EOSINOPHILS 0.9 % [facility] BASOPHILS 0.3 % [facility] Comment: Test Performed at: [facility] [address] [address] [place], [place] ??[address] Danie Sheldon Blood 10/01/2022 10:0 9 AM DYE RANGE OPERATOR CLOTH 10/01/2022 10:13 AM DYE RANGE OPERATOR CLOTH Joseph Ayala MD HEMATOLOGY ORDERABLE S [facility] [phone] [facility] [address] [place] [address] documented in this encounter Visit Diagnoses Diagnosis Prostate cancer- Primary Malignant neoplasm of prostate Cancer, 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
--- OUTSIDE RECORDS SUMMARY | 2024-10-30 02:30 | XMS_ITS | Encounter Summary ---
Author Organization [facility] Address [address] [place] [address] Care Team Providers Care Clock Assembler Name Role Phone Anirudh Craft MD Primary Care Provider [phone] Reason for Visit * Reason Comments Follow Up FOLLOW UP,LABS Encounter Details Date Type Department Care Team (Late st Contact Info) Description 04/01/2022 10:05 AM CDT Office Visit [facility] ONCOLOGY AND HEMATOLOGY - [place] [address] [facility] [address] [place] [address] Kailyn Blood MD 607 [facility] [address] [place] [address] Prostate cancer (Primary Dx) Social History Tobacco [...] AM CDT documented as of this encounter Last Filed Vital Signs Vital Sign Reading Time Taken Comments Blood Pressure 118/66 04/01/2022 9:29 AM CDT Pulse 55 04/01/2022 9:29 AM CDT Temperature 36 ??C (96.8 ??F) 04/01/2022 9:29 AM CDT Respiratory Rate - - Oxygen Saturation 99% 04/01/2022 9:29 AM CDT Inhaled Oxygen Concentration - - Weight 70.3 kg (155 lb) 04/01/2022 9:29 AM CDT Height 167.6 cm (5' 6 ) 04/01/2022 9:29 AM CDT Body Mass Index 25.02 04/01/2022 9:29 AM CDT documented in this encounter Progress Notes * Kailyn Blood MD - 04/01/2022 9:32 AM CDT Hematology Oncology Follow up DIAGNOSIS Metastatic prostate cancer, [place] score 8, with right acetabulum met in 11/2019 Right lung nodule CURRENT TREATMENT Lupron TREATMENT HISTORY Casodex Xgeva SUBJECTIVE Patient returns today for reevaluation. The patient is doing well without any new complaints. REVIEW OF SYSTEMS During the review of systems, the following significant history is obtained from the patient: Constitutional: denies fevers, sweats, fatigue, malaise, weight loss HEENT: denies sinus congestion, hearing or vision problems Respiratory: denies cough, dyspnea, wheeze Cardiovascular: denies chest pain, exertional chest pressure/discomfort, nausea, syncope, shortnessof breath GI: denies constipation, diarrhea, dsyphagia, reflux symptoms, vomiting, melena : denies dysuria, frequency, incontinence, urgency Integumentary system: no lymphadenopathy, sweats, flushing Musculoskeletal: denies: myalgia, arthralgia Neurological: denies blurry or disturbed vision, numbness/weakness, dizziness Skin: No lumps, bumps or rashes. PHYSICAL EXAM General appearance: alert, cooperative, no distress, appears stated age Head: normocephalic, without obvious abnormality, atraumatic Eyes: conjunctivae/corneas clear, EOM's intact Ears: normal external ear canals AU Nose: Nares normal. Septum midline. Mucosa normal. No drainage or sinus tenderness Throat: inflamed left lower gum Neck: supple, symmetrical, trachea midline. Lungs: clear to auscultation bilaterally Heart: regular rate and rhythm, S1, S2 normal, no murmur, click, rub or gallop Abdomen: soft, non-tender. Bowel sounds normal. No masses, No organomegaly Extremities: extremities normal, atraumatic, no cyanosis or edema Skin: Skin color, texture, turgor normal. No rashes or lesions Lymph nodes: No lymphadenopathy Neuro: No obvious focal deficit LABS WBC 8.4 Hgb 13.7 plt 207 PSA <0.1 ASSESSMENT/PLAN 1. Prostate cancer. Tolerated treatment well. No significant side effects. Continue Lupron today. 2. Will monitor PSA. Patient will follow-up with me in 3 months. René Blood MD [facility] Oncology and Hematology [facility] documented in this encounter Plan of Treatment Upcoming Encounters Date Type Department Care Team (Late st Contact Info) Description 12/13/2024 9:45 AM CLINICAL THERAPIST Office Visit [facility] Oncology and Hematology [facility] [address] [facility] 200 [place] [phone] Glenn Al MD 2227 [facility] [address] [place] [address] documented as of this encounter Visit Diagnoses Diagnosis Prostate cancer- Primary Malignant neoplasm of prostate documented in this encounter Care Teams Clock Assembler Relationship Specialty Start Date End Date Anirudh Craft MD 3908 [facility] 4 [place] [address] PCP - General Internal Medicine 08/01/20 09/19/24 documented as of this encounter
--- OUTSIDE RECORDS SUMMARY | 2024-10-30 02:30 | XMS_ITS | Encounter Summary ---
Author Organization [facility] Address [address] [place] [address] Care Team Providers Care Utility Lineman Name Role Phone Anirudh Craft MD Primary Care Provider Encounter Details Date Type Department Care Team (Late st Contact Info) Description 08/08/2022 Specialty Pharmacy [facility] [place] [address] [facility] [address] [place] [address] Dora Huerta, PHARMACIST Specialty Pharmacy Clinical Assessment Social History Tobacco Use Types Packs/Day Years [...] as of this encounter Progress Notes * Dora Huerta, PHARMACIST - 08/08/2022 2:13 PM CDT [facility] Pharmacist Assessment & Care Plan Patient Name: Ilan Mccauley Date of : 1940 Assessment/Care Plan Review completed by Dora Huerta PHARMACIST on 08/08/22 General Information Source of information for this assessment: CHART, PROVIDER AND PATIENT ON 08/08 (Can be patient, caregiver, provider, chart review, etc.) HIPAA contact identified: Yes Note: CESIA () ???Welcome Packet?? been provided to the patient Yes Note: Mike Clinical Information Start of Care Date: 08/06/2022 Specialty medication and directions: abiraterone (ZYTIGA) 250 mg tablet, Take 4 Tablets (1,000 mg) by mouth daily before breakfast Treating diagnosis & comorbid conditions: Prostate cancer C61 Patient Active Problem List Diagnosis Code BPH [...] cancer C61 Cancer, metastatic to bone C79.51 New or recent updates to medical history: No Note: Current Outpatient Medications: ondansetron (Zofran) 4 mg [...] mg by mouth daily., Disp: , Rfl: New or recent updates to medications (Rx or OTC): No Note: Allergies Allergen Reactions Codeine Nausea and Vomiting Makes patient extremely ill Nebivolol Bradycardia New or recent updates to allergy information: No Note: Medication Therapy Is this a new medication for the patient? Yes Note: New reported side effects or adverse events: N/a Note: New reported or suspected adherence issues: No Note: The patient is receiving therapeutic benefits from therapy: N/a Note: Patient to continue with the current prescription medications, given the disease, clinical responseand medical condition: Yes Note: Pharmacist conducted Drug Utilization Review (DUR) either manually or electronically through the pharmacy operating system: Yes Noted DUR Issues and actions taken: No Interaction Warnings Shown A full medication reconciliation has been completed and documented for all medications that patientis receiving from your pharmacy as well as any other prescription or OTC medications: Yes Note: The Pharmacist has reviewed the patient information and assessed the prescription for appropriateness, clarity and accuracy. The Pharmacist has determined the medication to be appropriate for this patient at the prescribed dose as well as for the indication treated: Yes Note: MEDICATION AND DOSE APPROPRIATE FOR PATIENT AND DIAGNOSIS Patient Assessment/Counselling Upon initializing specialty drug therapy, the patient received education, counseling, and/or resources to promote adherence to therapy: Yes Note: PATIENT RECEIVED WRITTEN MEDICATION INFORMATION AND VERBAL PHARMACIST COUNSELING ON 08/08 Most common reactions include fatigue, joint pain, fluid retention or edema, increased blood pressure, nausea, diarrhea, vomiting, cough, upper respiratory infection, and headache. Inform patients that they may experience hypertension, hypokalemia, and peripheral edema. Advise patients to report symptoms of hypertension, hypokalemia, or edema to their healthcare provider. Advise patient with diabetes to monitor blood glucose closely, and that insulin or hypoglycemic agents may need to be adjusted. The patient knows how to properly use and store the medication: Yes Note: Advise patient to store tablets at room temperature keeping container tightly closed. Excursions permitted from 15 degrees C to 30 degrees C (59 degrees F to 86 degrees F). Advise patient to take on an empty stomach; 1 hour before or 2 hours after food intake. Swallow tablets whole and take with water. Food may increase blood levels and increase risk for adverse reactions. The patient is free of any functional limitations that would prevent them from reading any of the information provided: Yes Note: The patient is not considered to be an ???at risk?? patient, have high risk comorbidities or require additional assistance: Yes If answer to the previous question is No , please document each risk factor or comorbidity in an individualized plan of care below: Additional Notes documented in this encounter Plan of Treatment Upcoming Encounters Date Type Department Care Team (Late st Contact Info) Description 12/13/2024 9:45 AM MUSICAL PERFORMER Office Visit [facility] Oncology and Hematology - [place] [address] [facility] 200 [place] [address] Glenn Al MD 2227 [facility] [address] [place] [address] documented as of this encounter Visit Diagnoses Not on filedocumented in this encounter Care Teams Utility Lineman Relationship Specialty Start Date End Date Anirudh Craft MD 3908 [facility] 4 [place] [address] PCP - General Internal Medicine 08/01/20 09/19/24 documented as of this encounter
--- OUTSIDE RECORDS SUMMARY | 2024-10-30 02:30 | XMS_ITS | Encounter Summary ---
Author Organization [facility] Address [address] Fernándezn: Epic Prelude ADT [place] [address] Care Team Providers Care Billing Assistant Name Role Phone Anirudh Craft MD Primary Care Provider Encounter Details Date Type Department Care Team (Latest Contact Info) Description 01/08/2023 Travel Social History Tobacco Use Types Packs/Day [...] Coronavirus/COVID-19? No / Unsure 01/08/2023 8:22 AM GARMENT PARTS CUTTER HAND documented as of this encounter Plan of Treatment Upcoming Encounters Date Type Department Care Team (Late st Contact Info) Description 12/13/2024 9:45 AM GARMENT PARTS CUTTER HAND Office Visit [facility] Oncology and Hematology - [place] [address] [facility] [address] [place] [address] Glenn Al MD [address] [facility] [address] [place] [address] documented as of this encounter Visit Diagnoses Not on filedocumented in this encounter Care Teams Billing Assistant Relationship Specialty Start Date End Date Anirudh Craft MD [address] [address] PCP - General Internal Medicine 08/01/20 09/19/24 documented as of this encounter
--- OUTSIDE RECORDS SUMMARY | 2024-10-30 02:30 | XMS_ITS | Encounter Summary ---
Author Organization [facility] Address [address] [place] [address] Care Team Providers Care Technical Sales Specialist Name Role Phone Anirudh Craft MD Primary Care Provider Reason for Visit * Reason Comments Follow Up Labs Encounter Details Date Type Department Care Team (Late st Contact Info) Description 12/30/2021 10:35 AM CASHIER CREDIT Office Visit [facility] ONCOLOGY AND HEMATOLOGY - [place] [address] [facility] [address] [place] [address] Kailyn Blood MD [address] [facility] [address] [place] [address] Prostate cancer (Primary Dx) Social History [...] COVID-19? No / Unsure 12/30/2021 9:47 AM CASHIER CREDIT documented as of this encounter Last Filed Vital Signs Vital Sign Reading Time Taken Comments Blood Pressure 120/70 12/30/2021 10:31 AM CASHIER CREDIT Pulse 57 12/30/2021 10:31 AM CASHIER CREDIT Temperature 36.2 ??C (97.1 ??F) 12/30/2021 10:[address] Respiratory Rate 16 12/30/2021 10:31 AM CASHIER CREDIT Oxygen Saturation 97% 12/30/2021 10:31 AM CASHIER CREDIT Inhaled Oxygen Concentration - - Weight 70.8 kg (156 lb) 12/30/2021 10:31 AM CASHIER CREDIT Height 167.6 cm (5' 6 ) 12/30/2021 10:31 AM CASHIER CREDIT Body Mass Index 25.18 12/30/2021 10:31 AM CASHIER CREDIT documented in this encounter Progress Notes * Kailyn Blood MD - 12/30/2021 10:44 AM CST Hematology Oncology Follow up DIAGNOSIS Metastatic prostate cancer, [place] score 8, with right acetabulum met in [...] Neuro: No obvious focal deficit LABS WBC 7.5 Hgb 13.4 plt 211 PSA <0.1 ASSESSMENT/PLAN 1. Prostate cancer. Tolerated treatment well. Asymptomatic. Continue Lupron today. 2. RLL nodule. Repeat CT showed significantly decreased RLL lung nodule indicating a benign etiology. Will monitor it closely. 3. 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 Will monitor. Patient will follow-up with me in 3 months. René Blood MD [facility] Oncology and Hematology [facility] IER CREDIT documented in this encounter Plan of Treatment Upcoming Encounters Date Type Department Care Team (Late st Contact Info) Description 12/13/2024 9:45 AM CASHIER CREDIT Office Visit [facility] Oncology and Hematology [facility] [address] [place] [address] 200 [place] [phone] Glenn Al MD [address] [facility] [address] [place] [address] documented as of this encounter Visit Diagnoses Diagnosis Prostate cancer- Primary Malignant neoplasm of prostate documented in this encounter Care Teams Technical Sales Specialist Relationship Specialty Start Date End Date Anirudh Craft MD 3908 [facility] 4 [place] [address] PCP - General Internal Medicine 08/01/20 09/19/24 documented as of this encounter
--- OUTSIDE RECORDS SUMMARY | 2024-10-30 02:30 | XMS_ITS | Encounter Summary ---
Author Organization [facility] Address [address] [place] [address] Care Team Providers Care Computer Aided Design Drafter Name Role Phone Anirudh Craft MD Primary Care Provider [phone] Encounter Details Date Type Department Care Team (Late Contact Info) Description 11/24/2022 Specialty Pharmacy [facility] [place] [address] [facility] [address] [place] [address] Cherelle Hirsch, PHARMACIST Specialty Pharmacy [...] st Contact Info) Description 12/13/2024 9:45 AM SHEEP BONER [facility] Oncology and Hematology - [place] [address] [facility] 200 [place] [address] Glenn Al MD [address] [facility] [address] [place] [address] documented as of this encounter Visit Diagnoses Not on filedocumented in this encounter Care Teams Computer Aided Design Drafter Relationship Specialty Start Date End Date Anirudh Craft MD 3908 [facility] 4 [place] [address] PCP - General Internal Medicine 08/01/20 09/19/24 documented as of this encounter
--- OUTSIDE RECORDS SUMMARY | 2024-10-30 02:30 | XMS_ITS | Encounter Summary ---
Author Organization [facility] Address [address] [facility] Attn: Epic Prelude ADT ESTHER WILSON [address] Care Team Providers Care Board Certified Arts Therapist Name Role Phone Anirudh Craft MD Primary Care Provider Encounter Details Date Type Department Care Team (Latest Contact Info) Description 12/30/2021 Travel Social History Tobacco Use Types Packs/Day [...] COVID-19? No / Unsure 12/30/2021 9:47 AM FERTILIZING MACHINE OPERATOR documented as of this encounter Plan of Treatment Upcoming Encounters Date Type Department Care Team (Late st Contact Info) Description 12/13/2024 9:45 AM FERTILIZING MACHINE OPERATOR Office Visit [facility] Oncology and Hematology - [place] [address] [facility] 200 [place] [address] Glenn Al MD [address] [facility] [address] [place] [address] documented as of this encounter Visit Diagnoses Not on filedocumented in this encounter Care Teams Board Certified Arts Therapist Relationship Specialty Start Date End Date Anirudh Craft MD [address] [address] PCP - General Internal Medicine 08/01/20 09/19/24 documented as of this encounter
--- OUTSIDE RECORDS SUMMARY | 2024-10-30 02:30 | XMS_ITS | Encounter Summary ---
Author Organization [facility] Address [address] [place] [address] Care Team Providers Care Admission Specialist Name Role Phone Anirudh Craft MD Primary Care Provider Encounter Details Date Type Department Care Team (Late Contact Info) Description 08/05/2022 Orders Only [facility] Oncology and Hematology [facility] [id number] [place] [address] [place] [address] [address] Social History Tobacco Use Types [...] st Contact Info) Description 12/13/2024 9:45 AM LIBRARY SERVICES COORDINATOR Office Visit [facility] Oncology and Hematology [facility] [address] 200 [place] [address] Glenn Al MD [address] [address] documented as of this encounter Visit Diagnoses Not on filedocumented in this encounter Care Teams Admission Specialist Relationship Specialty Start Date End Date Anirudh Craft MD [address] [address] PCP - General Internal Medicine 08/01/20 09/19/24 documented as of this encounter
--- OUTSIDE RECORDS SUMMARY | 2024-10-30 02:30 | XMS_ITS | Encounter Summary ---
Author Organization [facility] Address [address] [place] [address] Care Team Providers Care Clinical Informatics Strategist Name Role Phone Anirudh Craft MD Primary Care Provider [phone] Reason for Referral * Eval and Treat (Urgent) - Closed Specialty Diagnoses / Procedures Referred By Contac t Referred To Contact Gastroenterology Diagnoses Elevated liver [place] [address] [address] [place] [address] [address] Referral ID Status Reason Start Date Expiration Date Visits Re quested Visits Authorized [id number] Closed 01/06/2023 01/06/2024 1 1 M ROLLER OPERATOR Encounter Details Date Type Department Care Team (Late st Contact Info) Description 01/06/2023 Orders Only [facility] Oncology and Hematology [facility] [address] [place] [address] [place] [address] [address] Elevated liver enzymes (Primary Dx) [...] Coronavirus/COVID-19? No / Unsure 01/05/2023 9:45 AM STEAM ROLLER OPERATOR documented as of this encounter Progress Notes * Brielle Ferguson RN - 01/06/2023 4:22 PM CST Referral placed for GI consult with Dr. Reyes.Brielle Ferguson RN M ROLLER OPERATOR documented in this encounter Plan of Treatment Upcoming Encounters Date Type Department Care Team (Late st Contact Info) Description 12/13/2024 9:45 AM STEAM ROLLER OPERATOR Office Visit [facility] Oncology and Hematology [address] [facility] [facility] [address] [place] [phone] [place] [address] [place] [address] [address] [place] [address] Scheduled Referrals Name Type Priority Associated Diagnoses Order Schedule AMB REFERRAL TO GASTROENTEROLOGY Outpatient Referral Routine Elevated liver enzymes Ordered: 01/06/2023 documented as of this encounter Visit Diagnoses Diagnosis Elevated liver enzymes- Primary Nonspecific elevation of levels of transaminase or lactic acid dehydrogenase (LDH) documented in this encounter Care Teams Clinical Informatics Strategist Relationship Specialty Start Date End Date Anirudh Craft MD 3908 [facility] 4 [place] [address] PCP - General Internal Medicine 08/01/20 09/19/24 documented as of this encounter
--- OUTSIDE RECORDS SUMMARY | 2024-10-30 02:30 | XMS_ITS | Encounter Summary ---
Author Organization [facility] Address [address] [place] [address] Care Team Providers Care Associate Professor Of Literature Name Role Phone Anirudh Craft MD Primary Care Provider [phone] Reason for Visit * Reason Comments Med Refill Encounter Details Date Type Department Care Team (Late st Contact Info) Description 06/22/2022 Refill [facility] Pulmonology [facility] [address] [place] [address] Terrence Hawk MD [address] [facility] [address] [place] [address] Social History Tobacco Use Types Packs/Day Years [...] encounter Miscellaneous Notes * Telephone Encounter - Bruna Alvarez RN - 06/23/2022 9:02 AM CDT Refill request for albuterol hfa from [email or web address] ESTHER 03/04/2021 no f/u. 1 inhaler sent with a note that f/u needed. documented in this encounter Plan of Treatment Upcoming Encounters Date Type Department Care Team (Late st Contact Info) Description 12/13/2024 9:45 AM INTERNET MANAGER Office Visit [facility] Oncology and Hematology - [place] [address] [facility] [address] [place] [address] Glenn Al MD [address] [facility] [address] [place] [address] documented as of this encounter Visit Diagnoses Not on filedocumented in this encounter Care Teams Associate Professor Of Literature Relationship Specialty Start Date End Date Anirudh Craft MD [address] [place] [address] PCP - General Internal Medicine 08/01/20 09/19/24 documented as of this encounter
--- OUTSIDE RECORDS SUMMARY | 2024-10-30 02:30 | XMS_ITS | Encounter Summary ---
Author Organization [facility] Address [address] [place] [address] Care Team Providers Care Superintendent Mechanical Name Role Phone Anirudh Craft MD Primary Care Provider Reason for Referral * Radiology Services (Routine) - Closed Specialty Diagnoses / Procedures Referred By Contac t Referred To Contact Radiology Diagnoses Elevated liver enzymes Prostate cancer Procedures [place] [address] [place] [address] [facility] [place] [address] [place] [address] Referral ID Status Reason Start Date Expiration Date Visits Re quested Visits Authorized [id number] Closed 01/07/2023 02/07/2024 1 1 Reason for Visit * Radiology Services (Routine) - Closed Specialty Diagnoses / Procedures Referred By Contac t Referred To Contact Radiology Diagnoses Elevated liver enzymes Prostate cancer Procedures [place] [address] [address] [facility] [place] [address] [place] [address] Referral ID Status Reason Start Date Expiration Date Visits Re quested Visits Authorized [id number] Closed 01/07/2023 02/07/2024 1 1 Encounter Details Date Type Department Care Team (Latest Contact Info) Description 01/15/2023 9:57 AM CDT - 01/15/2023 11:59 PM CDT Hospital Encounter [facility] Imaging Services [facility] [address] [place] [address] [place] [address] [facility] [address] [place] [address] Discharge Disposition: Home or Self Care [...] st Contact Info) Description 12/13/2024 9:45 AM CARTOON ANIMATOR Office Visit [facility] Oncology and Hematology - [place] [address] [facility] [address] [place] [address] Glenn Al MD 2[address] [facility] [address] [place] [address] documented as of this encounter Procedures Procedure Name Priority Date/Time Associated Diagnosis Comments US ABDOMEN LIMITED Routine 01/15/2023 10 :54 AM CDT Elevated liver enzymes Prostate cancer documented in this encounter Results * US ABDOMEN LIMITED (01/15/2023 10:54 AM CDT) Anatomical Region Laterality Modality Abdomen Ultrasound 01/15/2023 10:5 4 AM CDT Impressions 01/15/2023 11:55 AM CDT IMPRESSION: 1. No evidence of cholelithiasis or cholecystitis. ?? 2. Diffuse hepatic steatosis without evidence of solid hepatic lesion or intrahepatic biliary ductal dilatation. DICTATION LOCATION: Location [address] [facility] 01/15/2023 11:55 AM CDT EXAMINATION: US ABDOMEN [...] intrahepatic biliary ductal dilatation. DICTATION LOCATION: Location [address] [place] [address] Joseph Ayala MD ORDERABLES documented in this encounter Visit Diagnoses Diagnosis Elevated liver enzymes Nonspecific elevation of levels of transaminase or lactic acid dehydrogenase (LDH) Prostate cancer Malignant neoplasm of prostate documented in this encounter Care Teams Superintendent Mechanical Relationship Specialty Start Date End Date Anirudh Craft MD [address] [address] PCP - General Internal Medicine 08/01/20 09/19/24 documented as of this encounter
--- OUTSIDE RECORDS SUMMARY | 2024-10-30 02:30 | XMS_ITS | Encounter Summary ---
Author Organization [facility] Address [address] [place] [address] Care Team Providers Care Superintendent Menagerie Name Role Phone Anirudh Craft MD Primary Care Provider Encounter Details Date Type Department Care Team (Latest Contact Info) Description 12/24/2022 9:48 AM LEAD MANUFACTURING TECHNICIAN - 12/24/2022 11:59 PM LEAD MANUFACTURING TECHNICIAN Hospital Encounter [facility] [address] [place] [address] [place] [address] [address] Discharge Disposition: Home or Self Care Social [...] Coronavirus/COVID-19? No / Unsure 12/24/2022 9:45 AM LEAD MANUFACTURING TECHNICIAN documented as of this encounter Medications at [...] st Contact Info) Description 12/13/2024 9:45 AM LEAD MANUFACTURING TECHNICIAN Office Visit [facility] Oncology and Hematology [facility] [address] [facility] [address] [place] [address] Glenn Al MD [address] [facility] [address] [place] [address] documented as of this encounter Procedures Procedure Name Priority Date/Time Associated Diagnosis Comments CBC WITH DIFFERENTIAL Stat 12/24/2022 9:50 AM LEAD MANUFACTURING TECHNICIAN Prostate cancer PSA Stat 12/24/2022 9:50 AM LEAD MANUFACTURING TECHNICIAN Prostate cancer COMPREHENSIVE METABOLIC PANEL Stat 12/24/2022 9:50 AM LEAD MANUFACTURING TECHNICIAN Prostate cancer documented in this encounter Results * PSA (12/24/2022 9:50 AM LEAD MANUFACTURING TECHNICIAN) PSA <0.1 <4.0 ng/mL 12/24/2022 3:54 PM LEAD MANUFACTURING TECHNICIAN [facility] Blood Venipuncture / Unknown 12/24/2022 9:50 AM LEAD MANUFACTURING TECHNICIAN 12/24/2022 9:53 AM LEAD MANUFACTURING TECHNICIAN Narrative [facility] - 12/24/2022 3:54 PM LEAD MANUFACTURING TECHNICIAN The concentration of PSA in a given specimen, as determined by assays from different manufacturers, can vary because of differences in assay methods and reagent specificity. Values obtained with different assay methods cannot be used interchangeably. The testing method in use is the WILLIAM Electrochemiluminescence Immunoassay. Joseph Ayala MD CHEMISTRY ORDERABLES [facility] CLIA# [id number] [address] [place] [address] * (ABNORMAL) COMPREHENSIVE METABOLIC PANEL (12/24/2022 9:[address] [facility]) SODIUM 139 136 - 145 mmol/L 12/24/2022 11:00 AM [facility] POTASSIUM 3.8 3.4 - 5.1 mmol/L 12/24/2022 11:00 AM [facility] CHLORIDE 107 98 - 107 mmol/L 12/24/2022 11:00 AM [facility] CO2 23 22 - 29 mmol/L 12/24/2022 11:00 AM [facility] CALCIUM 9.2 8.6 - 10.4 mg/dL 12/24/2022 11:00 AM [facility] BUN 13 6 - 20 mg/dL 12/24/2022 11:00 AM [facility] CREATININE 0.78 0.67 - 1.17 mg/dL 12/24/2022 11:00 AM [facility] Comment:The GFR result is no t clinically significant on patients <18 or >70 years of age. GLUCOSE 95 74 - 99 mg/dL 12/24/2022 11:00 AM [facility] TOTAL PROTEIN 6.6 6.3 - 8.7 g/dL 12/24/2022 11:00 AM [facility] ALBUMIN 4.4 3.5 - 5.2 g/dL 12/24/2022 11:00 AM [facility] BILIRUBIN TOTAL 0.7 0.2 - 1.1 mg/dL 12/24/2022 11:00 AM [facility] ALKALINE PHOSPHATASE 93 40 - 150 U/L 12/24/2022 11:00 AM [facility] AST 77(H) 0 - 41 U/L 12/24/2022 11:00 AM [facility] ALT 103(H) 0 - 41 U/L 12/24/2022 11:00 AM [facility] GFR >60 mL/min/1.7 3 sq meter 12/24/2022 11:00 AM [facility] [employer] [facility] Comment:eGFR calculated with 2020 CKD-EPI equation. Vegetarian diet, extremely high or low muscle mass, and may affect results. Cystatin C with Glomerular Filtration Rate is a suitable alternative for these patients. ANION GAP 9 8 - 16 mmol/L 12/24/2022 11:00 AM [facility] Blood Venipuncture / Unknown 12/24/2022 9:50 AM LEAD MANUFACTURING TECHNICIAN 12/24/2022 9:53 AM LEAD MANUFACTURING TECHNICIAN Joseph Ayala MD CHEMISTRY ORDERABLES [facility] CLIA# [id number] [place] [address] * (ABNORMAL) CBC WITH DIFFERENTIAL (12/24/2022 9:50 AM LEAD MANUFACTURING TECHNICIAN) WBC 8.4 4.5 - 10.5 K/uL 12/24/2022 9:56 AM [facility] ONCOLOGY [facility] RBC 4.11(L) 4.50 - 5.40 M/uL 12/24/2022 9:56 AM [facility] ONCOLOGY [facility] HEMOGLOBIN 13.6 13.6 - 16.5 g/dL 12/24/2022 9:56 AM [facility] HEMATOCRIT 40.1 40.0 - 48.0 % 12/24/2022 9:56 AM [facility] ONCOLOGY [facility] MCV 97.5 82.0 - 99.0 fL 12/24/2022 9:56 AM [facility] ONCOLOGY [facility] MCH 33.0 27.8 - 34.5 pg 12/24/2022 9:56 AM [facility] ONCOLOGY [facility] MCHC 33.8 32.5 - 35.5 g/dL 12/24/2022 9:56 AM [facility] ONCOLOGY [facility] RDW 13.3 11.5 - 14.5 % 12/24/2022 9:56 AM [facility] ONCOLOGY [facility] PLATELETS 187 160 - 420 K/uL 12/24/2022 9:56 AM [facility] ONCOLOGY SERVICES - [facility] KAYDENAR MPV 8.9 8.7 - 12.7 fL 12/24/2022 9:56 AM [facility] ONCOLOGY SERVICES - [facility] SINDELAR NEUTROPHILS 62 % 12/24/2022 9:56 AM [facility] ONCOLOGY SERVICES - [facility] SINDELAR LYMPHOCYTES 25 % 12/24/2022 9:56 AM [facility] ONCOLOGY SERVICES - [facility] SINDELAR MONOCYTES 9 % 12/24/2022 9:56 AM [facility] ONCOLOGY SERVICES - [facility] SINDELAR EOSINOPHILS 3 % 12/24/2022 9:56 AM LEAD MANUFACTURING TECHNICIAN [facility] ONCOLOGY SERVICES - [facility] SINDELAR BASOPHILS 1 % 12/24/2022 9:56 AM [facility] ONCOLOGY [facility] KAYDENAR NEUTROPHIL ABSOLUTE 5.30 1.90 - 7.00 K/uL 12/24/2022 9:56 AM [facility] ONCOLOGY [facility] SINSIVAKUMARAR LYMPHOCYTE ABSOLUTE 2.10 0.70 - 4.50 K/uL 12/24/2022 9:56 AM [facility] ONCOLOGY SERVICES - [facility] SINSIVAKUMARAR MONOCYTE ABSOLUTE 0.80 0.10 - 1.30 K/uL 12/24/2022 9:56 AM [facility] ONCOLOGY [facility] SINDELAR EOSINOPHIL ABSOLUTE 0.20 0.00 - 0.70 K/uL 12/24/2022 9:56 AM [facility] ONCOLOGY SERVICES - [facility] SINDELAR BASOPHILS ABSOLUTE 0.00 0.00 - 0.20 K/uL 12/24/2022 9:56 AM [facility] ONCOLOGY [facility] KAYDENAR Blood Venipuncture / Unknown 12/24/2022 9:50 AM LEAD MANUFACTURING TECHNICIAN 12/24/2022 9:53 AM LEAD MANUFACTURING TECHNICIAN Joseph Ayala MD HEMATOLOGY ORDERABLE S [facility] ONCOLOGY SERVICES - [facility] CLIA#[id number] [address] [place] [address] documented in this encounter Visit Diagnoses Diagnosis Prostate cancer Malignant neoplasm of prostate documented in this encounter Care Teams Superintendent Menagerie Relationship Specialty Start Date End Date Anirudh Craft MD [address] [address] PCP - General Internal Medicine 08/01/20 09/19/24 documented as of this encounter
--- OUTSIDE RECORDS SUMMARY | 2024-10-30 02:30 | XMS_ITS | Encounter Summary ---
Author Organization [facility] Address [address] [facility] [address] Fernándezn: Epic Prelude ADT ESTHER WILSON [address] Care Team Providers Care Putty Maker Name Role Phone Anirudh Craft MD Primary Care Provider Encounter Details Date Type Department Care Team (Latest Contact Info) Description 04/01/2022 Travel Social History Tobacco Use Types Packs/Day [...] st Contact Info) Description 12/13/2024 9:45 AM INFRASTRUCTURE PROJECT MANAGER Office Visit [facility] Oncology and Hematology - [place] [address] [facility] [address] [place] [address] Glenn Al MD [address] [facility] [address] [place] [address] documented as of this encounter Visit Diagnoses Not on filedocumented in this encounter Care Teams Putty Maker Relationship Specialty Start Date End Date Anirudh Craft MD [address] [address] PCP - General Internal Medicine 08/01/20 09/19/24 documented as of this encounter
--- OUTSIDE RECORDS SUMMARY | 2024-10-30 02:30 | XMS_ITS | Encounter Summary ---
Author Organization [facility] Address [address] [place] [address] Care Team Providers Care Oil Mixer Name Role Phone Anirudh Craft MD Primary Care Provider Encounter Details Date Type Department Care Team (Late Contact Info) Description 09/29/2022 Specialty Pharmacy [facility] [place] [address] [facility] [address] [place] [address] Cherelle Hirsch, PHARMACIST Specialty Pharmacy [...] st Contact Info) Description 12/13/2024 9:45 AM CHIP SILO TENDER Office Visit [facility] Oncology and Hematology - [place] [address] [facility] 200 [place] [address] Glenn Al MD [address] [facility] [address] [place] [address] documented as of this encounter Visit Diagnoses Not on filedocumented in this encounter Care Teams Oil Mixer Relationship Specialty Start Date End Date Anirudh Craft MD [address] [facility] 4 [place] [address] PCP - General Internal Medicine 08/01/20 09/19/24 documented as of this encounter
--- OUTSIDE RECORDS SUMMARY | 2024-10-30 02:30 | XMS_ITS | Encounter Summary ---
Author Organization [facility] Address [address] [facility] Attn: Epic Prelude ADT ESTHER WIL[place] [address] Care Team Providers Care Manager System Name Role Phone Anirudh Craft MD Primary Care Provider [phone] Encounter Details Date Type Department Care Team (Latest Contact Info) Description 09/30/2021 Travel Social History Tobacco Use Types Packs/Day [...] have Coronavirus / COVID-19? No / Unsure 09/30/2021 10:08 AM SENIOR TECHNICAL RECRUITER documented as of this encounter Plan of Treatment Upcoming Encounters Date Type Department Care Team (Late st Contact Info) Description 12/13/2024 9:45 AM SENIOR TECHNICAL RECRUITER Office Visit [facility] Oncology and Hematology - [place] [address] [facility] [address] [place] [address] Glenn Al MD [address] [facility] [address] [place] [address] documented as of this encounter Visit Diagnoses Not on filedocumented in this encounter Care Teams Manager System Relationship Specialty Start Date End Date Anirudh Craft MD [address] [address] PCP - General Internal Medicine 08/01/20 09/19/24 documented as of this encounter
--- OUTSIDE RECORDS SUMMARY | 2024-10-30 02:30 | XMS_ITS | Encounter Summary ---
Author Organization Address [address] [place] [address] Care Team Providers Care Funds Transfer Clerk Name Role Phone Anirudh Craft MD Primary Care Provider Encounter Details Date Type Department Care Team (Late st Contact Info) Description 12/22/[address] [facility] Oncology and Hematology [facility] [id number] [place] [address] [place] [address] [address] Prostate cancer (Primary Dx) Social [...] st Contact Info) Description 12/13/2024 9:45 AM BLACKJACK DEALER Office Visit [facility] Oncology and Hematology [facility] [address] [place] [address] Glenn Al MD 2227 [facility] [address] [place] [address] documented as of this encounter Results * PSA (12/24/2022 9:50 AM BLACKJACK DEALER) PSA <0.1 <4.0 ng/mL 12/24/2022 3:54 PM [facility] Blood Venipuncture / Unknown 12/24/2022 9:50 AM BLACKJACK DEALER 12/24/2022 9:53 AM BLACKJACK DEALER [facility] - 12/24/2022 3:54 PM BLACKJACK DEALER The concentration of PSA in a given specimen, as determined by assays from different manufacturers, can vary because of differences in assay methods and reagent specificity. Values obtained with different assay methods cannot be used interchangeably. The testing method in use is the WILLIAM Electrochemiluminescence Immunoassay. Joseph Ayala MD CHEMISTRY ORDERABLES [facility]# [id number] [address] [facility] [place] [address] * (ABNORMAL) COMPREHENSIVE METABOLIC PANEL (12/24/2022 9:50 AM BLACKJACK DEALER) SODIUM 139 136 - 145 mmol/L 12/24/2022 11:00 AM [facility] POTASSIUM 3.8 3.4 - 5.1 mmol/L 12/24/2022 11:00 AM [facility] CHLORIDE 107 98 - 107 mmol/L 12/24/2022 11:00 AM [facility] CO2 23 22 - 29 mmol/L 12/24/2022 11:00 AM [facility] CALCIUM 9.2 8.6 - 10.4 mg/dL 12/24/2022 11:00 AM [facility] BUN 13 6 - 20 mg/dL 12/24/2022 11:00 AM [facility] CREATININE 0.78 0.67 - 1.17 mg/dL 12/24/2022 11:00 AM [facility] Comment:The GFR result is no t clinically significant on patients <18 or >70 years of age. GLUCOSE 95 74 - 99 mg/dL 12/24/2022 11:00 AM [facility] TOTAL PROTEIN 6.6 6.3 - 8.7 g/dL 12/24/2022 11:00 AM [facility] ALBUMIN 4.4 3.5 - 5.2 g/dL 12/24/2022 11:00 AM [facility] BILIRUBIN TOTAL 0.7 0.2 - 1.1 mg/dL 12/24/2022 11:00 AM [facility] ALKALINE PHOSPHATASE 93 40 - 150 U/L 12/24/2022 11:00 AM [facility] AST 77(H) 0 - 41 U/L 12/24/2022 11:00 AM [facility] ALT 103(H) 0 - 41 U/L 12/24/2022 11:00 AM [facility] GFR >60 mL/min/1.7 3 sq meter 12/24/2022 11:00 AM [facility] Comment:eGFR calculated with 2020 CKD-EPI equation. Vegetarian diet, extremely high or low muscle mass, and may affect results. Cystatin C with Glomerular Filtration Rate is a suitable alternative for these patients. ANION GAP 9 8 - 16 mmol/L 12/24/2022 11:00 AM [facility] Blood Venipuncture / Unknown 12/24/2022 9:50 AM BLACKJACK DEALER 12/24/2022 9:53 AM BLACKJACK DEALER Joseph Ayala MD CHEMISTRY ORDERABLES [facility] CLIA# [id number] [address] [place] [address] * (ABNORMAL) CBC WITH DIFFERENTIAL (12/24/2022 9:50 AM BLACKJACK DEALER) WBC 8.4 4.5 - 10.5 K/uL 12/24/2022 9:56 AM [facility] ONCOLOGY SERVICES - [facility] [place] RBC 4.11(L) 4.50 - 5.40 M/uL 12/24/2022 9:56 AM BLACKJACK DEALER [facility] LABORATORY ONCOLOGY SERVICES - [facility] TJ HEMOGLOBIN 13.6 13.6 - 16.5 g/dL 12/24/2022 9:56 AM BLACKJACK DEALER [facility] LABORATORY ONCOLOGY SERVICES - [facility] TJ HEMATOCRIT 40.1 40.0 - 48.0 % 12/24/2022 9:56 AM BLACKJACK DEALER [facility] LABORATORY ONCOLOGY SERVICES - [facility] [place] MCV 97.5 82.0 - 99.0 fL 12/24/2022 9:56 AM BLACKJACK DEALER [facility] LABORATORY ONCOLOGY SERVICES - [facility] [place] MCH 33.0 27.8 - 34.5 pg 12/24/2022 9:56 AM BLACKJACK DEALER [facility] LABORATORY ONCOLOGY SERVICES - [facility] [place] MCHC 33.8 32.5 - 35.5 g/dL 12/24/2022 9:56 AM BLACKJACK DEALER [facility] LABORATORY ONCOLOGY SERVICES - [facility] [place] RDW 13.3 11.5 - 14.5 % 12/24/2022 9:56 AM BLACKJACK DEALER [facility] LABORATORY ONCOLOGY SERVICES - [facility] TJ PLATELETS 187 160 - 420 K/uL 12/24/2022 9:56 AM BLACKJACK DEALER [facility] LABORATORY ONCOLOGY SERVICES - [facility] TJ MPV 8.9 8.7 - 12.7 fL 12/24/2022 9:56 AM BLACKJACK DEALER [facility] LABORATORY ONCOLOGY SERVICES - [facility] TJ NEUTROPHILS 62 % 12/24/2022 9:56 AM BLACKJACK DEALER [facility] LABORATORY ONCOLOGY SERVICES - [facility] TJ LYMPHOCYTES 25 % 12/24/2022 9:56 AM BLACKJACK DEALER [facility] LABORATORY [facility] SERVICES - [facility] [place] MONOCYTES 9 % 12/24/2022 9:56 AM BLACKJACK DEALER [facility] LABORATORY [facility] SERVICES - [facility] [place] EOSINOPHILS 3 % 12/24/2022 9:56 AM BLACKJACK DEALER [facility] LABORATORY ONCOLOGY SERVICES - [facility] [place] BASOPHILS 1 % 12/24/2022 9:56 AM BLACKJACK DEALER [facility] LABORATORY [facility]COLOGY SERVICES - [facility] [place] NEUTROPHIL ABSOLUTE 5.30 1.90 - 7.00 K/uL 12/24/2022 9:56 AM BLACKJACK DEALER [facility] LABORATORY ONCOLOGY SERVICES - [facility] [place] LYMPHOCYTE ABSOLUTE 2.10 0.70 - 4.50 K/uL 12/24/2022 9:56 AM BLACKJACK DEALER [facility] LABORATORY ONCOLOGY SERVICES - [facility] [place] MONOCYTE ABSOLUTE 0.80 0.10 - 1.30 K/uL 12/24/2022 9:56 AM BLACKJACK DEALER [facility] ONCOLOGY SERVICES - [facility] EOSINOPHIL ABSOLUTE 0.20 0.00 - 0.70 K/uL 12/24/2022 9:56 AM BLACKJACK DEALER [facility] ONCOLOGY SERVICES - [facility] [place] BASOPHILS ABSOLUTE 0.00 0.00 - 0.20 K/uL 12/24/2022 9:56 AM BLACKJACK DEALER [facility] ONCOLOGY [facility] [place] Blood Venipuncture / Unknown 12/24/2022 9:50 AM BLACKJACK DEALER 12/24/2022 9:53 AM BLACKJACK DEALER Joseph Ayala MD HEMATOLOGY ORDERABLE S [facility] ONCOLOGY [facility] [place] CLIA#[id number] [address] [place] [address] documented in this encounter Visit Diagnoses Diagnosis Prostate cancer- Primary Malignant neoplasm of prostate documented in this encounter Care Teams Funds Transfer Clerk Relationship Specialty Start Date End Date Anirudh Craft MD [address] [phone] PCP - General Internal Medicine 08/01/20 09/19/24 documented as of this encounter
--- OUTSIDE RECORDS SUMMARY | 2024-10-30 02:30 | XMS_ITS | Encounter Summary ---
Author Organization [facility] Address [address] [place] [address] Care Team Providers Care Kindergarten Instructional Assistant Name Role Phone Anirudh Craft MD Primary Care Provider [phone] Encounter Details Date Type Department Care Team (Late Contact Info) Description 12/25/2022 Abstract [facility] Oncology and Hematology [facility] [id number] [place] [address] [place] [address] [address] Social History Tobacco Use Types [...] Coronavirus/COVID-19? No / Unsure 12/24/2022 9:45 AM ASSISTANT AUTO CENTER MANAGER documented as of this encounter Plan of Treatment Upcoming Encounters Date Type Department Care Team (Late st Contact Info) Description 12/13/2024 9:45 AM ASSISTANT AUTO CENTER MANAGER Office Visit [facility] Oncology and Hematology [facility] [address] [place] [address] Glenn lA MD [address] [address] documented as of this encounter Visit Diagnoses Not on filedocumented in this encounter Care Teams Kindergarten Instructional Assistant Relationship Specialty Start Date End Date Anirudh Craft MD [address] [address] PCP - General Internal Medicine 08/01/20 09/19/24 documented as of this encounter
--- OUTSIDE RECORDS SUMMARY | 2024-10-30 02:30 | XMS_ITS | Encounter Summary ---
Author Organization [facility] Address [address] [place] [address] Care Team Providers Care Cot Assembler Name Role Phone Anirudh Craft MD Primary Care Provider [phone] Encounter Details Date Type Department Care Team (Late st Contact Info) Description 08/07/2022 Abstract [facility] Oncology and Hematology [facility] [address] [place] [address] [place] [address] [address] Social History Tobacco Use Types [...] st Contact Info) Description 12/13/2024 9:45 AM ELECTRIC ORGAN INSPECTOR AND REPAIRER Office Visit [facility] Oncology and Hematology [facility] [address] [place] [address] Glenn Al MD [address] [address] documented as of this encounter Visit Diagnoses Not on filedocumented in this encounter Care Teams Cot Assembler Relationship Specialty Start Date End Date Anirudh Craft MD [address] [address] PCP - General Internal Medicine 08/01/20 09/19/24 documented as of this encounter
--- OUTSIDE RECORDS SUMMARY | 2024-10-30 02:30 | XMS_ITS | Encounter Summary ---
Author Organization [facility] Address [address] [facility] Attn: Epic Prelude ADT [place] [address] Care Team Providers Care Advertising Account Representative Name Role Phone Anirudh Craft MD Primary Care Provider Encounter Details Date Type Department Care Team (Latest Contact Info) Description 12/24/2022 Travel Social History Tobacco Use Types Packs/Day [...] Coronavirus/COVID-19? No / Unsure 12/24/2022 9:45 AM LINEN ROOM CUSTODIAN documented as of this encounter Plan of Treatment Upcoming Encounters Date Type Department Care Team (Late st Contact Info) Description 12/13/2024 9:45 AM LINEN ROOM CUSTODIAN Office Visit [facility] Oncology and Hematology - [place] [address] [facility] [address] [place] [address] Glenn Al MD [address] [facility] [address] [place] [address] documented as of this encounter Visit Diagnoses Not on filedocumented in this encounter Care Teams Advertising Account Representative Relationship Specialty Start Date End Date Anirudh Craft MD [address] [address] PCP - General Internal Medicine 08/01/20 09/19/24 documented as of this encounter
--- OUTSIDE RECORDS SUMMARY | 2024-10-30 02:30 | XMS_ITS | Encounter Summary ---
Author Organization [facility] Address [address] [place] [address] Care Team Providers Care End Frazer Name Role Phone Anirudh Craft MD Primary Care Provider Encounter Details Date Type Department Care Team (Late Contact Info) Description 10/23/2022 Specialty Pharmacy [facility] [place] [address] [facility] [address] [place] [address] Noemi Polk, PHARMACIST Specialty Pharmacy [...] Coronavirus/COVID-19? No / Unsure 10/01/2022 10:01 AM WOODWINDS TEACHER documented as of this encounter Plan of Treatment Upcoming Encounters Date Type Department Care Team (Late Contact Info) Description 12/13/2024 9:45 AM WOODWINDS TEACHER Office Visit [facility] Oncology and Hematology - [place] [address] [facility] [address] [place] [address] Glenn Al MD [address] [facility] [address] [place] [address] documented as of this encounter Visit Diagnoses Not on filedocumented in this encounter Care Teams End Frazer Relationship Specialty Start Date End Date Anirudh Craft MD 3[address] [facility] 4 [place] [phone] PCP - General Internal Medicine 08/01/20 09/19/24 documented as of this encounter
--- OUTSIDE RECORDS SUMMARY | 2024-10-30 02:30 | XMS_ITS | Encounter Summary ---
Author Organization [facility] Address [address] [place] [address] Care Team Providers Care Punch Machine Hand Name Role Phone Anirudh Craft MD Primary Care Provider Reason for Visit * Reason Onset Date Comments Abnormal Lab Results 12/24/2022 Encounter Details Date Type Department Care Team (Late st Contact Info) Description 12/24/2022 Telephone [facility] Oncology and Hematology [facility] [address] [address] [place] [address] [address] Abnormal Lab Results Social History [...] Coronavirus/COVID-19? No / Unsure 12/24/2022 9:45 AM INSIDE SALES LEAD documented as of this encounter Miscellaneous Notes * Telephone Encounter - Brielle Ferguson RN - 12/24/2022 11:25 AM CST Pt walked in to review abnormal lab results. Liver enzymes elevated, reviewed with Dr. Ayala. Pt advised to hold Zytiga x 2 weeks and then have repeat CMP done, pt states understanding. Consent signed for Zytiga, prednisone and Eligard, chemo ed was done 08/23 by Tracy Vicente MANAGER SUBWAY. Brielle Ferguson, RN DE SALES LEAD documented in this encounter Plan of Treatment Upcoming Encounters Date Type Department Care Team (Late st Contact Info) Description 12/13/2024 9:45 AM INSIDE SALES LEAD Office Visit [facility] Oncology and Hematology - [place] [address] [facility] 200 [place] [address] Glenn Al MD [address] [facility] [address] [place] [address] documented as of this encounter Visit Diagnoses Not on filedocumented in this encounter Care Teams Punch Machine Hand Relationship Specialty Start Date End Date Anirudh Craft MD 3908 [facility] [address] [place] [address] PCP - General Internal Medicine 08/01/20 09/19/24 documented as of this encounter
--- OUTSIDE RECORDS SUMMARY | 2024-10-30 02:30 | XMS_ITS | Encounter Summary ---
Author Organization [facility] Address [address] [place] [address] Care Team Providers Care Battery Test Engineer Name Role Phone Anirudh Craft MD Primary Care Provider Encounter Details Date Type Department Care Team (Late st Contact Info) Description 02/20/2022 Orders Only [facility] ONCOLOGY AND HEMATOLOGY - [place] [address] [facility] [address] [place] [address] Kailyn Blood MD [address] [facility] [address] [place] [address] Cancer, metastatic to bone (Primary Dx); [...] st Contact Info) Description 12/13/2024 9:45 AM CONSERVATION OR HERITAGE ARCHITECT Office Visit [facility] Oncology and Hematology - [place] [address] [facility] [address] [place] [address] Glenn Al MD [address] [facility] [address] [place] [address] documented as of this encounter Visit Diagnoses Diagnosis Cancer, metastatic to bone- Primary Secondary malignant neoplasm of bone and bone marrow Prostate cancer Malignant neoplasm of prostate documented in this encounter Care Teams Battery Test Engineer Relationship Specialty Start Date End Date Anirudh Craft MD 3908 [facility] 4 [place] [address] PCP - General Internal Medicine 08/01/20 09/19/24 documented as of this encounter
--- OUTSIDE RECORDS SUMMARY | 2024-10-30 02:30 | XMS_ITS | Encounter Summary ---
Author Organization [facility] Address [address] [place] [address] Care Team Providers Care Leather Leveler Name Role Phone Anirudh Craft MD Primary Care Provider Encounter Details Date Type Department Care Team (Latest Contact Info) Description 04/01/2022 9:08 AM CDT - 04/01/2022 11:59 PM CDT Hospital Encounter [facility] [address] [facility] [address] [place] [address] Kailyn Blood MD [address] [facility] [address] [place] [address] Discharge Disposition: Home or Self [...] st Contact Info) Description 12/13/2024 9:45 AM FISHING VESSEL OPERATOR Office Visit [facility] Oncology and Hematology [facility] [address] [facility] 200 [place] [address] Glenn Al MD [address] [facility] [address] [place] [address] documented as of this encounter Procedures Procedure Name Priority Date/Time Associated Diagnosis Comments CBC WITH DIFFERENTIAL Stat 04/01/2022 9:10 AM CDT 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 POTASSIUM 4.4 3.5 - 5.0 mmol/L 04/01/2022 9:59 AM CDT [facility] CHLORIDE 105 98 - 107 mmol/L 04/01/2022 9:59 AM CDT [facility] CO2 26 22 - 29 mmol/L 04/01/2022 9:59 AM CDT [facility] CALCIUM 9.8 8.6 - 10.2 mg/dL 04/01/2022 9:59 AM CDT [facility] BUN 19 8 - 23 mg/dL 04/01/2022 9:59 AM [facility] CREATININE 0.75 0.67 - 1.17 mg/dL 04/01/2022 9:59 AM [facility] LABORATORY [facility] Comment:The GFR result is no t clinically significant on patients <18 or >70 years of age. GLUCOSE 104(H) 74 - 99 mg/dL 04/01/2022 9:59 AM [facility] LABORATORY [facility] TOTAL PROTEIN 7.3 6.7 - 8.6 g/dL 04/01/2022 9:59 AM [facility] LABORATORY [facility] ALBUMIN 4.9 3.5 - 5.2 g/dL 04/01/2022 9:59 AM [facility] [place] BILIRUBIN TOTAL 0.4 0.2 - 1.1 mg/dL 04/01/2022 9:59 AM [facility] LABORATORY [facility] ALKALINE PHOSPHATASE 94 40 - 129 U/L 04/01/2022 9:59 AM [facility] [place] [facility] AST 23 <41 U/L 04/01/2022 9:59 AM [facility] [place] [facility] ALT 17 <42 U/L 04/01/2022 9:59 AM [facility] [place] [facility] GFR >60 mL/min/1.7 3 sq meter 04/01/2022 9:59 AM [facility] LABORATORY [facility] Comment:eGFR calculated with 2020 CKD-EPI equation. Vegetarian diet, extremely high or low muscle mass, and may affect results. Cystatin C with Glomerular Filtration Rate is a suitable alternative for these patients. ANION GAP 11 8 - 16 mmol/L 04/01/2022 9:59 AM [facility] [place] [facility] Blood Venipuncture / Unknown 04/01/2022 9:10 AM CDT 04/01/2022 9:17 AM [facility] LABORATORY SERVICES [facility] - 04/01/2022 9:59 AM CDT Samples containing indocyanine green cause interferences on Total and/or Direct Bilirubin and must not be measured. Kailyn Blood MD CHEMISTRY ORDERABLES [facility] CLIA# [id number] [address] [place] [address] * (ABNORMAL) CBC WITH DIFFERENTIAL (04/01/2022 9:10 AM CDT) WBC 8.4 4.0 - 9.8 K/uL 04/01/2022 9:18 AM CDT [facility] RBC 4.08(L) 4.50 - 5.40 M/uL 04/01/2022 9:18 AM CDT [facility] HEMOGLOBIN 13.7 13.6 - 16.5 g/dL 04/01/2022 9:18 AM CDT [facility] HEMATOCRIT 42.1 40.0 - 48.0 % 04/01/2022 9:18 AM CDT [facility] MCV 103.2(H) 82.0 - 99.0 fL 04/01/2022 9:18 AM CDT [facility] MCH 33.6(H) 27.2 - 32.6 pg 04/01/2022 9:18 AM CDT [facility] - [facility] MCHC 32.5 31.5 - 35.5 g/dL 04/01/2022 9:18 AM CDT [facility] RDW 12.8 11.5 - 14.5 % 04/01/2022 9:18 AM CDT [facility] RDW-STDEV 48.5 37.1 - 48.7 fL 04/01/2022 9:18 AM CDT [facility] PLATELETS 207 140 - 350 K/uL 04/01/2022 9:18 AM CDT [facility] MPV 11.1 9.3 - 12.4 fL 04/01/2022 9:18 AM CDT [facility] NEUTROPHILS 49 % 04/01/2022 9:18 AM CDT [facility] LYMPHOCYTES 35 % 04/01/2022 9:18 AM CDT [facility] MONOCYTES 11 % 04/01/2022 9:18 AM CDT [facility] EOSINOPHILS 4 % 04/01/2022 9:18 AM CDT [facility] BASOPHILS 1 % 04/01/2022 9:18 AM CDT [facility] IMMATURE GRANULOCYTES 0 % 04/01/2022 9:18 AM CDT [facility] NEUTROPHIL ABSOLUTE 4.10 1.90 - 7.00 K/uL 04/01/2022 9:18 AM CDT [facility] LYMPHOCYTE ABSOLUTE 2.96 0.70 - 4.50 K/uL 04/01/2022 9:18 AM CDT [facility] MONOCYTE ABSOLUTE 0.90 0.10 - 1.30 K/uL 04/01/2022 9:18 AM CDT [facility] EOSINOPHIL ABSOLUTE 0.32 0.00 - 0.70 K/uL 04/01/2022 9:18 AM CDT [facility] BASOPHILS ABSOLUTE 0.06 0.00 - 0.20 K/uL 04/01/2022 9:18 AM CDT [facility] IMMATURE GRANULOCYTES ABSOLUTE 0.02 0.00 - 0.03 K/uL 04/01/2022 9:18 AM CDT [facility] Blood Venipuncture / Unknown 04/01/2022 9:10 AM CDT 04/01/2022 9:16 AM CDT Kailyn Blood MD HEMATOLOGY ORDERABLE S [facility] [id number] [address] [place] [address] * PSA (04/01/2022 9:10 AM CDT) PSA <0.1 <4.0 ng/mL 04/01/2022 10:07 AM CDT [facility] Blood Venipuncture / Unknown 04/01/2022 9:10 AM CDT 04/01/2022 9:17 AM CDT Narrative [facility] - 04/01/2022 10:07 AM CDT The concentration of PSA in a given specimen, as determined by assays from different manufacturers, can vary because of differences in assay methods and reagent specificity. Values obtained with different assay methods cannot be used interchangeably. The testing method in use is the WILLIAM Electrochemiluminescence Immunoassay. 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
--- OUTSIDE RECORDS SUMMARY | 2024-10-30 02:30 | XMS_ITS | Encounter Summary ---
Author Organization [facility] Address [address] [place] [address] Care Team Providers Care Defence Intelligence Analyst Name Role Phone Anirudh Craft MD Primary Care Provider Reason for Visit * Tx/Med Therapy Plan Auth (Routine) - Closed Specialty Diagnoses / Procedures Referred By Contarmani t Referred To Contact Diagnoses Prostate cancer Cancer, metastatic to bone Procedures [place] LEUPROLIDE ACETATE SUSPNSION Kailyn Cat MD [address] [place] [address] [facility] [address] [place] [address] Referral ID Status Reason Start Date Expiration Date Visits Re quested Visits Authorized [id number] Closed 12/12/2020 12/24/2022 99 99 Encounter Details Date Type Department Care Team (Latest Contact Info) Description 10/01/2021 10:47 AM SENIOR RESEARCH SCIENTIST - 10/01/2021 11:59 PM SENIOR RESEARCH SCIENTIST Hospital Encounter [facility] [address] [place] [address] Kailyn Blood MD [address] [place], [place] [phone] Injection Pod 1, [place] Discharge Disposition: Home [...] COVID-19? No / Unsure 10/01/2021 9:58 AM SENIOR RESEARCH SCIENTIST documented as of this encounter Medications at [...] as of this encounter Progress Notes * Gt Long RN - 10/01/2021 11:05 AM CST Pt admitted to infusion center for Eligard injection. Pt demonstrates understanding of medication and possible side effects. Tolerated injection without problem. Instructed pt to notify physician or go to ED if there are any changes in their condition. Verbalized understanding. Discharged home. OR RESEARCH SCIENTIST documented in this encounter Plan of Treatment Upcoming Encounters Date Type Department Care Team (Late st Contact Info) Description 12/13/2024 9:45 AM SENIOR RESEARCH SCIENTIST Office Visit [facility] Oncology and Hematology - [place] [address] [facility] [address] [place] [address] Glenn Al MD [address] [facility] [address] [place] [address] documented as of this encounter [...] subCUT, ONE TIME ONLY, 1 dose, On Thu10/01/21 at 1100, Routine Given 10/01/2021 11:02 AM SENIOR RESEARCH SCIENTIST 22.5 mg Hip, Left documented in this encounter Care Teams Defence Intelligence Analyst Relationship Specialty Start Date End Date Anirudh Craft MD [address] [phone] PCP - General Internal Medicine 08/01/20 09/19/24 documented as of this encounter
--- OUTSIDE RECORDS SUMMARY | 2024-10-30 02:30 | XMS_ITS | Encounter Summary ---
Author Organization [facility] Address [address] [place] [address] Care Team Providers Care Petrophysicist Name Role Phone Anirudh Craft MD Primary Care Provider [phone] Reason for Visit * Reason Onset Date Comments Medication Review 08/21/2022 Encounter Details Date Type Department Care Team (Late st Contact Info) Description 08/21/2022 Telephone [facility] Oncology and Hematology [facility] [address] [address] [place] [address] [address] Medication Review Social History Tobacco Use Types Packs/Day Years [...] PM CDT documented as of this encounter Miscellaneous Notes * Addendum Note - Brielle Ferguson RN - 08/21/2022 12:18 PM CDTAddended by: BRIELLE FERGUSON on: 08/21/2022 12:18 PM Modules accepted: Orders * Telephone Encounter - Brielle Ferguson RN - 08/21/2022 11:46 AM CDT Reviewed with pt, he prefers to have liver function testing done due to concerns with Zytiga. CMP ordered. Brielle Ferguson RN ----- Message from Joseph Ayala MD sent at 08/21/2022 10:25 AM CDT ----- Liver enzymes have been perfect and we check them each visit. Does he want them checked sooner? ----- Message ----- From: Brielle Ferguson RN Sent: 08/19/2022 2:17 PM CDT To: Joseph Ayala MD Pt concerned that urine is bright yellow and that zytiga/prednisone may be causing liver problems. He denies any dysuria, urgency or frequency, states urine color is normally pale yellow. He deniesthat urine is brown or padmini color, bright yellow. documented in this encounter Plan of Treatment Upcoming Encounters Date Type Department Care Team (Late st Contact Info) Description 12/13/2024 9:45 AM INSPECTOR LINE Office Visit [facility] Oncology and Hematology [facility] [address] [facility] [address] [place] [address] Glenn Al MD 2227 [facility] [address] [place] [address] documented as of this encounter Procedures Procedure Name Priority Date/Time Associated Diagnosis Comments COMPREHENSIVE METABOLIC PANEL Routine 08/26/2022 1:07 PM CDT Prostate cancer Cancer, metastatic to bone documented in this encounter Results * (ABNORMAL) COMPREHENSIVE METABOLIC PANEL (08/26/2022 1:07 PM CDT) GLUCOSE 103(H) 65 - 99 mg/dL [facility] Comment: ? Fasting reference interval For someone without known diabetes, a glucose value between 100 and 125 mg/dL is consistent with prediabetes and should be confirmed with a follow-up test. BUN 14 7 - 25 mg/dL [facility] CREATININE 0.78 0.70 - 1.22 mg/dL [facility] GFR 89 > OR = 60 mL/min/1. 73m2 [facility] Comment: The eGFR is based on the CKD-EPI 2020 equation. To calculate the new eGFR from a previous Creatinine or Cystatin C result, go to https://www.kidney.org/professionals/ kdoqi/gfr%5Fcalculator BUN/CREAT RATIO NOT APPLICABLE 6 - 22 (calc) [facility] SODIUM 143 135 - 146 mmol/L [facility] POTASSIUM 4.4 3.5 - 5.3 mmol/L [facility] CHLORIDE 109 98 - 110 mmol/L [facility] CO2 27 20 - 32 mmol/L [facility] CALCIUM 9.5 8.6 - 10.3 mg/dL [facility] TOTAL PROTEIN 6.7 6.1 - 8.1 g/dL [facility] ALBUMIN 4.8 3.6 - 5.1 g/dL [facility] GLOBULIN 1.9 1.9 - 3.7 g/dL (calc) [facility] ALBUMIN/GLOBULI N RATIO 2.5 1.0 - 2.5 (calc) [facility] BILIRUBIN TOTAL 0.5 0.2 - 1.2 mg/dL [facility] ALKALINE PHOSPHATASE 88 35 - 144 U/L [facility] AST 24 10 - 35 U/L [facility] ALT 19 9 - 46 U/L [facility] Comment: Test Performed at: [facility] [address] ??[address] Neri Ruiz D.O., MPH Blood 08/26/2022 1:07 PM CDT 08/26/2022 1:08 PM CDT Joseph Ayala MD CHEMISTRY ORDERABLES [facility] [phone] [facility] [address] [place] [address] documented in this encounter Visit Diagnoses Diagnosis Prostate cancer- Primary Malignant neoplasm of prostate Cancer, 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
--- OUTSIDE RECORDS SUMMARY | 2024-10-30 02:30 | XMS_ITS | Encounter Summary ---
Author Organization [facility] Address [address] [place] [address] Care Team Providers Care Sed Special Education Teacher Name Role Phone Anirduh Craft MD Primary Care Provider Reason for Visit * Reason Comments Follow Up Labs Encounter Details Date Type Department Care Team (Late st Contact Info) Description 10/01/2021 10:30 AM GRAPHICS EDIT TECHNICIAN Office Visit [facility] ONCOLOGY AND HEMATOLOGY - [place] [address] [facility] [address] [place] [address] Kailyn Blood MD [address] [facility] [address] [place] [address] Prostate cancer (Primary Dx) Social History [...] COVID-19? No / Unsure 10/01/2021 9:58 AM GRAPHICS EDIT TECHNICIAN documented as of this encounter Last Filed Vital Signs Vital Sign Reading Time Taken Comments Blood Pressure 112/60 10/01/2021 10:40 AM GRAPHICS EDIT TECHNICIAN Pulse 58 10/01/2021 10:40 AM GRAPHICS EDIT TECHNICIAN Temperature 36.2 ??C (97.1 ??F) 10/01/2021 10:[address] Respiratory Rate 16 10/01/2021 10:40 AM GRAPHICS EDIT TECHNICIAN Oxygen Saturation 99% 10/01/2021 10:40 AM GRAPHICS EDIT TECHNICIAN Inhaled Oxygen Concentration - - Weight 71.2 kg (157 lb) 10/01/2021 10:40 AM GRAPHICS EDIT TECHNICIAN Height 167.6 cm (5' 6 ) 10/01/2021 10:40 AM GRAPHICS EDIT TECHNICIAN Body Mass Index 25.34 10/01/2021 10:40 AM GRAPHICS EDIT TECHNICIAN documented in this encounter Progress Notes * Kailyn Blood MD - 10/01/2021 10:43 AM CST Hematology Oncology Follow up DIAGNOSIS Metastatic prostate cancer, Florin score 8, with right acetabulum met in [...] obvious focal deficit LABS WBC 7.5 Hgb 13.2 plt 207 PSA <0.1 ASSESSMENT/PLAN 1. Prostate cancer. Tolerated treatment well. Continue Lupron today. Monitor PSA closely. 2. RLL nodule. Repeat CT showed significantly decreased RLL lung nodule indicating a benign etiology. Will monitor it closely. 3. 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 Will monitor. Patient will follow-up with me in 3 months. René Blood MD [facility] Oncology and Hematology [facility] HICS EDIT TECHNICIAN documented in this encounter Plan of Treatment Upcoming Encounters Date Type Department Care Team (Late st Contact Info) Description 12/13/2024 9:45 AM GRAPHICS EDIT TECHNICIAN Office Visit [facility] Oncology and Hematology [facility] [address] [place] [address] [address] [place] [phone] Glenn Al MD [address] [facility] [address] [place] [address] documented as of this encounter Visit Diagnoses Diagnosis Prostate cancer- Primary Malignant neoplasm of prostate documented in this encounter Care Teams Sed Special Education Teacher Relationship Specialty Start Date End Date Anirudh Craft MD 3908 [facility] 4 [place] [phone] PCP - General Internal Medicine 08/01/20 09/19/24 documented as of this encounter
--- OUTSIDE RECORDS SUMMARY | 2024-10-30 02:30 | XMS_ITS | Encounter Summary ---
Author Organization [facility] Address [address] [facility] Attn: Epic Prelude ADT ESTHER WILSON [address] Care Team Providers Care Cushion Assembler Name Role Phone Anirudh Craft MD Primary Care Provider [phone] Encounter Details Date Type Department Care Team (Latest Contact Info) Description 10/01/2021 Travel Social History Tobacco Use Types Packs/Day [...] COVID-19? No / Unsure 10/01/2021 9:58 AM FILTER WASHER documented as of this encounter Plan of Treatment Upcoming Encounters Date Type Department Care Team (Late st Contact Info) Description 12/13/2024 9:45 AM FILTER WASHER Office Visit [facility] Oncology and Hematology - [place] [address] [facility] 200 [place] [address] Glenn lA MD [address] [facility] [address] [place] [address] documented as of this encounter Visit Diagnoses Not on filedocumented in this encounter Care Teams Cushion Assembler Relationship Specialty Start Date End Date Anirudh Craft MD [address] [address] PCP - General Internal Medicine 08/01/20 09/19/24 documented as of this encounter
--- OUTSIDE RECORDS SUMMARY | 2024-10-30 02:30 | XMS_ITS | Encounter Summary ---
Author Organization [facility] Address [address] [place] [address] Care Team Providers Care Camp Nurse Name Role Phone Anirudh Craft MD Primary Care Provider Reason for Visit * Tx/Med Therapy Plan Auth (Routine) - Closed Specialty Diagnoses / Procedures Referred By Cecile t Referred To Contact Diagnoses Prostate cancer Cancer, metastatic to bone Procedures [place] LEUPROLIDE ACETATE SUSPNSION Kailyn Cat MD [address] [place] [address] [facility] [address] [place] [address] Referral ID Status Reason Start Date Expiration Date Visits Re quested Visits Authorized [id number] Closed 12/12/2020 12/24/2022 99 99 Encounter Details Date Type Department Care Team (Latest Contact Info) Description 07/02/2022 10:07 AM CDT - 07/02/2022 11:59 PM CDT Hospital Encounter [facility] [address] [place] [address] Kailyn Blood MD [address] [place], [place] [phone] Injection Pod 1, Felicitas Discharge Disposition: Home [...] Progress Notes * Lissa Lopez RN - 07/02/2022 10:30 AM CDT Pt admitted to infusion [...] st Contact Info) Description 12/13/2024 9:45 AM HEAD CORRECTION OFFICER Office Visit [facility] Oncology and Hematology - [place] [address] [facility] 200 [place] [address] Glenn Al MD [address] [facility] [address] [place] [address] documented as of this encounter [...] subCUT, ONE TIME ONLY, 1 dose, On Thu07/02/22 at 1015, Routine Given 07/02/2022 10:17 AM CDT 22.5 mg Buttock, Right documented in this encounter Care Teams Camp Nurse Relationship Specialty Start Date End Date Anirudh Craft MD 3908 [facility] 4 [place] [address] PCP - General Internal Medicine 08/01/20 09/19/24 documented as of this encounter
--- OUTSIDE RECORDS SUMMARY | 2024-10-30 02:30 | XMS_ITS | Encounter Summary ---
Author Organization [facility] Address [address] [place] [address] Care Team Providers Care Tactical Deception Plans Officer Name Role Phone Anirudh Craft MD Primary Care Provider Reason for Visit * Reason Comments Follow Up FOLLOW UP,LABS Encounter Details Date Type Department Care Team (Late st Contact Info) Description 07/02/2022 10:00 AM CDT Office Visit [facility] ONCOLOGY AND HEMATOLOGY - [place] [address] [facility] [address] [place] [address] Kailyn Blood MD [address] [place] [address] [place] [address] Prostate cancer (Primary Dx); Cancer, metastatic to [...] Sign Reading Time Taken Comments Blood Pressure 112/68 07/02/2022 9:56 AM CDT Pulse 49 07/02/2022 9:56 AM CDT Temperature 36.1 ??C (97 ??F) 07/02/2022 9:56 AM CDT Respiratory Rate - - Oxygen Saturation 99% 07/02/2022 9:56 AM CDT Inhaled Oxygen Concentration - - Weight 70.3 kg (155 lb) 07/02/2022 9:56 AM CDT Height 167.6 cm (5' 6 ) 07/02/2022 9:56 AM CDT Body Mass Index 25.02 07/02/2022 9:56 AM CDT documented in this encounter Progress Notes * Kailyn Blood MD - 07/02/2022 9:59 AM CDT Hematology Oncology Follow up DIAGNOSIS [...] Neuro: No obvious focal deficit LABS WBC 8.5 Hgb 13.5 plt 213 PSA <0.1 ASSESSMENT/PLAN 1. Prostate cancer. Tolerated treatment well. Counts are normal. Asymptomatic. Continue Lupron today. 2. Will monitor PSA. Patient will follow-up with me in 3 months. René Blood MD [facility] Oncology and Hematology [facility] documented in this encounter Plan of Treatment Upcoming Encounters Date Type Department Care Team (Late st Contact Info) Description 12/13/2024 9:45 AM CIVIL ENGINEERING TEACHER Office Visit [facility] Oncology and Hematology [facility] [address] 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
--- OUTSIDE RECORDS SUMMARY | 2024-10-30 02:30 | XMS_ITS | Encounter Summary ---
Author Organization [facility] Address [address] [place] [address] Care Team Providers Care Car Clerk Pullman Name Role Phone Anirudh Craft MD Primary Care Provider Encounter Details Date Type Department Care Team (Latest Contact Info) Description 10/01/2022 10:02 AM COOLING TOWER OPERATOR - 10/01/2022 11:59 PM COOLING TOWER OPERATOR Hospital Encounter [facility] Laboratory Oncology Services [facility] [address] [place] [address] Kailyn Blood MD [address] [facility] [address] [place] [address] Discharge Disposition: Home or Self [...] Coronavirus/COVID-19? No / Unsure 10/01/2022 10:01 AM COOLING TOWER OPERATOR documented as of this encounter Medications at Time of Discharge Medication Sig Dispensed Refills Start Date End Date coenzyme Q10 100 mg Capsule Take 100 mg by mouth. rosuvastatin (CRESTOR) 20 mg tablet Take 10 mg by mouth daily at bedtime. 10MG NOW PER PT amLODIPine (NORVASC) 5 mg tablet Take 2.5 mg by mouth daily. ondansetron (Zofran) 4 mg Tablet Take 1 Tablet (4 mg) by mouth every 8 hours as needed for Nausea/Emesis. 30 Tablet 3 08/07/2022 12/24/2022 predniSONE (DELTASONE) 5 mg tabletIndications:Prosta te cancer Take 1 Tablet (5 mg) by mouth daily. 90 Tablet 5 08/06/2022 12/24/2022 documented as of this encounter Plan of Treatment Upcoming Encounters Date Type Department Care Team (Late st Contact Info) Description 12/13/2024 9:45 AM COOLING TOWER OPERATOR Office Visit [facility] Oncology and Hematology [facility] 2[address] [facility] 200 [place] [address] Glenn Al MD 2[address] [facility] [address] [place] [address] documented as of this encounter Procedures Procedure Name Priority Date/Time Associated Diagnosis Comments CBC WITH DIFFERENTIAL Routine 10/01/2022 10:09 AM COOLING TOWER OPERATOR Prostate cancer Cancer, metastatic to bone PSA Routine 10/01/2022 10:09 AM COOLING TOWER OPERATOR Prostate cancer Cancer, metastatic to bone COMPREHENSIVE METABOLIC PANEL Routine 10/01/2022 10:09 AM COOLING TOWER OPERATOR Prostate cancer Cancer, metastatic to bone documented in this encounter Results * (ABNORMAL) CBC WITH DIFFERENTIAL (10/01/2022 10:[address] [facility]) WBC 9.0 3.8 - 10.8 Thousand/ uL [email or web address] Selvin RBC 4.08(L) 4.20 - 5.80 Million/u L [email or web address] farrah Montalvo HEMOGLOBIN 13.3 13.2 - 17.1 g/dL [facility] farrah Montalvo HEMATOCRIT 40.4 38.5 - 50.0 % [facility] farrah [place] MCV 99.0 80.0 - 100.0 fL [facility] farrah Montalvo MCH 32.6 27.0 - 33.0 pg [facility] farrah Montalvo MCHC 32.9 32.0 - 36.0 g/dL [facility] RDW 12.7 11.0 - 15.0 % [facility] PLATELETS 211 140 - 400 Thousand/ uL [facility] MPV 11.7 7.5 - 12.5 fL [facility] Montalvo NEUTROPHIL ABSOLUTE 6,642 1,500 - 7,800 cells/uL [facility] [place] LYMPHOCYTE ABSOLUTE 1,755 850 - 3,900 cells/uL [facility] MONOCYTE ABSOLUTE 495 200 - 950 cells/uL [facility] EOSINOPHIL ABSOLUTE 81 15 - 500 cells/uL [facility] [place] BASOPHILS ABSOLUTE 27 0 - 200 cells/uL [facility] NEUTROPHIL 73.8 % [facility] farrah Montalvo LYMPHOCYTES 19.5 % [facility] farrah Montalvo MONOCYTE 5.5 % [facility] EOSINOPHILS 0.9 % [email or web address] farrah Montalvo BASOPHILS 0.3 % [email or web address] farrah Montalvo Comment: Test Performed at: [facility] [employer] [place] [address] [address] [place], [place] ??[phone] Danie Sheldon Blood 10/01/2022 10:0 9 AM COOLING TOWER OPERATOR 10/01/2022 10:13 AM COOLING TOWER OPERATOR Joseph Ayala MD HEMATOLOGY ORDERABLE S [facility] [phone] [place] [address] [place] [address] * COMPREHENSIVE METABOLIC PANEL (10/01/2022 10:09 AM COOLING TOWER OPERATOR) GLUCOSE 99 65 - 99 mg/dL [facility] Comment: ? Fasting reference interval BUN 15 7 - 25 mg/dL [facility] CREATININE 0.88 0.70 - 1.22 mg/dL [facility] GFR 86 > OR = 60 mL/min/1 .73m2 [facility] Comment: The eGFR is based on the CKD-EPI 2020 equation. To calculate the new eGFR from a previous Creatinine or Cystatin C result, go to https://www.kidney.org/professionals/ kdoqi/gfr%5Fcalculator BUN/CREAT RATIO NOT APPLICABLE 6 - 22 (calc) [facility] SODIUM 140 135 - 146 mmol/L [facility] POTASSIUM 3.9 3.5 - 5.3 mmol/L [facility] CHLORIDE 106 98 - 110 mmol/L [facility] CO2 24 20 - 32 mmol/L [facility] CALCIUM 9.5 8.6 - 10.3 mg/dL [facility] TOTAL PROTEIN 6.7 6.1 - 8.1 g/dL [facility] ALBUMIN 4.7 3.6 - 5.1 g/dL [facility] GLOBULIN 2.0 1.9 - 3.7 g/dL (calc) [facility] ALBUMIN/GLOBULIN RATIO 2.4 1.0 - 2.5 (calc) [facility] BILIRUBIN TOTAL 0.8 0.2 - 1.2 mg/dL [facility] ALKALINE PHOSPHATASE 81 35 - 144 U/L [facility] AST 28 10 - 35 U/L [facility] ALT 17 9 - 46 U/L [facility] Comment: Test Performed at: [facility] [place] [address] [place] ??[phone] RadhaGerhard Crespo Blood 10/01/2022 10:0 9 AM COOLING TOWER OPERATOR 10/01/2022 10:13 AM COOLING TOWER OPERATOR Joseph Ayala MD CHEMISTRY ORDERABLES [facility] [phone] [place] [address] [address] * PSA (10/01/2022 10:09 AM COOLING TOWER OPERATOR) PSA <0.04 < OR = 4.00 ng/mL [email or web address] Comment: The total PSA value from [...] or absence of disease. 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
--- OUTSIDE RECORDS SUMMARY | 2024-10-30 02:30 | XMS_ITS | Encounter Summary ---
Author Organization [facility] Address [address] [place] [address] Care Team Providers Care Project Management Engineer Name Role Phone Anirudh Craft MD Primary Care Provider [phone] Reason for Visit * Reason Onset Date Comments Nurse Navigation 01/13/2023 Encounter Details Date Type Department Care Team (Late st Contact Info) Description 01/13/2023 Telephone [facility] Radiation Oncology - [facility] [address] [place] [address] [place] [address] [place] [address] Nurse Navigation Social History Tobacco [...] Coronavirus/COVID-19? No / Unsure 01/08/2023 8:22 AM EVENT MARKETING ASSISTANT documented as of this encounter Miscellaneous Notes * Telephone Encounter - Conchis Ramos NP - 01/13/2023 3:06 PM CDT Nurse Navigation Note: Returned pt call. Pt is asking if he could transfer his care to [facility] d/t this facility is close to his residence. Aware ONN will discuss with Dr. Ayala for his recommendation. Pt voiced understanding. Will continue to follow. documented in this encounter Plan of Treatment Upcoming Encounters Date Type Department Care Team (Late st Contact Info) Description 12/13/2024 9:45 AM EVENT MARKETING ASSISTANT Office Visit [facility] Oncology and Hematology [facility] [address] [place] [address] [facility] [address] [place] [address] Glenn Al MD [address] [facility] [address] [place] [address] documented as of this encounter Visit Diagnoses Not on filedocumented in this encounter Care Teams Project Management Engineer Relationship Specialty Start Date End Date Anirudh Craft MD [address] [facility] [address] [place] [phone] PCP - General Internal Medicine 08/01/20 09/19/24 documented as of this encounter
--- OUTSIDE RECORDS SUMMARY | 2024-10-30 02:30 | XMS_ITS | Encounter Summary ---
Author Organization [facility] Address [address] [place] [address] Care Team Providers Care Chemical Laboratory Scientist Name Role Phone Anirudh Craft MD Primary Care Provider Reason for Visit * Reason Comments Pt Ed Encounter Details Date Type Department Care Team (Late st Contact Info) Description 08/07/2022 3:00 PM CDT Video Visit [facility] Oncology and Hematology [facility] [address] [facility] [address] [place] [address] Tracy Vicente FNP [address] [facility] [address] [place] [phone] Prostate cancer (Primary Dx) Social History Tobacco [...] as of this encounter Progress Notes * Tracy Vicente FNP - 08/07/2022 3:29 PM CDT [facility] Hematology/Oncology Chemotherapy Education CURRENT DIAGNOSIS: Prostate Cancer CURRENT TREATMENT: Zytiga, Prednisone, Eligard PREVIOUS TREATMENT: Casodex SUBJECTIVE Ilan Mccauley is a 81 y.o. male with prostate cancer. Presents via video visit for chemotherapy education. Plan to start treatment with zytiga. Diagnosis history includes metastatic prostate cancer,Florin score 8, with right acetabulum met in 11/2019. Treatment history includes casodex and xgeva.Today, patient reports no pain, nausea, vomiting, diarrhea, or shortness of breath. 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 No change from previous. Please see Epic for details. Medications Allergies Allergen Reactions Codeine Nausea and Vomiting Makes patient extremely ill Nebivolol Bradycardia Current Outpatient Medications Medication Sig Dispense Refill ondansetron (Zofran) 4 mg Tablet Take 1 Tablet (4 mg) by mouth every 8 hours as needed for Nausea/Emesis. 30 Tablet 3 abiraterone (ZYTIGA) 250 mg tablet Take 4 Tablets (1,000 mg) by mouth daily before breakfast. 120 Tablet 5 predniSONE (DELTASONE) 5 mg tablet Take 1 Tablet (5 mg) by mouth daily. 90 Tablet 5 albuterol sulfate 90 mcg/Actuation inhaler [...] medications for this visit. REVIEW OF SYSTEMS 13 organ systems reviewed and otherwise negative except for the HPI. Please see for details. PHYSICAL EXAM There were no vitals taken for this visit. NCCN Distress Score: Distress screening was performed and reviewed with patient. The following services were offered to the patient to help alleviate questions and concerns:none. Constitutional : Alert, cooperative, no respiratory distress, appears stated age Head: Normocephalic, without obvious abnormality, atraumatic Eyes: EOM intact. Normal sclera, no conjunctivitis. Neck: Normal range of motion. Lungs: Normal respiratory effort. No stridor. Musculoskeletal: Normal range of motion, no cyanosis or edema Skin: Skin color normal. Neuro: Alert and oriented to person, place, and time. tobacco acreage measurer grossly intact. Psychiatric: Normal mood and affect. Judgment and thought content normal. Lab Results Component Value Date/Time WBC 8.5 [...] 09:48 AM ANIONGAP 11 07/02/2022 09:48 AM Results for orders placed or performed during the hospital encounter of 03/04/21 XR CHEST PA AND LATERAL 2 VW Narrative EXAMINATION: CHEST 2 VIEWS DATE: 03/04/2021 11:55 AM HISTORY: Cough. COMPARISON: 11/26/2015 FINDINGS: There is mild linear atelectasis or scarring in the right midlung. No focal lung consolidation, pneumothorax or pleural effusion. The cardiomediastinal silhouette is normal. Impression IMPRESSION: 1. Mild linear atelectasis or scarring in the right midlung. DICTATION LOCATION: Location 1 - [facility] No results found for this or any previous visit. Results for orders placed during the hospital encounter of 06/19/20 CT CHEST W CONTRAST Narrative CT chest with contrast 06/19/2020. HISTORY: Lung nodule. TECHNIQUE: Contiguous 1.25 mm axial enhanced images were obtained through the chest. The examination was performed with the adjustment of mA according to the patient size and/or the use of Iterative Reconstruction Technique. Correlation is made with the previous CT abdomen dated 11/28/2019. FINDINGS: The right lower lobe nodule has markedly decreased in size measuring about 2 x 5 mm. Another 3 mm nodule is noted in the right middle lobe adjacent to the minor fissure on image 136 series 2. A 3 mm left lower lobe pulmonary nodule is visualized on image 169 series 2. Mild peripheral reticular interstitial thickening in bilateral lower lobes is noted. No acute infiltrate, pneumothorax or pleural effusion is identified. No enlarged mediastinal lymph nodes are seen. No hilar mass is identified. The cardiac silhouette is borderline in size. The ascending thoracic aorta is ectatic measuring 4 cm to 4.2 cm. The visualized bony structures are intact. Impression : 1. The right lower lobe pulmonary nodule has markedly decreased in size. 2. Other 2 tiny pulmonary nodules in the right middle lobe and left lower lobe. 3. The ascending thoracic aortic aneurysm. DICTATION LOCATION: Location 4 ASSESSMENT/PLAN 81 y.o. with prostate cancer. Presents via video visit for chemotherapy education. Plan to start treatment with zytiga. CHEMOTHERAPY TEACHING Regimen reviewed with patient at length. Discussed common side effects associated with regimen. Thefollowing topics were addressed in detail: Hydration- Discussed the importance of drinking between 60-80 oz of fluid per day including water, gatorade, or sports drinks. Recommended patient avoid excess caffeine and carbonated beverages as these can cause a diuretic effect. Educated on signs and symptoms of dehydration including dry skin and dry oral mucosa, extreme fatigue, and low urinary output. Should call office if unable to adequately hydrate at home with oral fluids. Nausea- Discussed both pharmacological and non-pharmacological approaches to relieving nausea. Reviewed how to take oral anti-emetics at home. Zofran available for home use. Reviewed importance of hydration and nutrition, eating small frequent meals throughout the day, eat before getting hungry, dry foods in am, avoiding greasy or fried foods prior to chemo, avoid strong odors, avoid smoking, suck on hard candy or popsicles, and not to lay flat for at least two hours after eating. Instructed tocall office if continues to suffer from chemotherapy-based nausea and vomiting despite taking anti-nausea medications, nausea that interferes with ability to eat, vomiting 1-2 times in a 24 hour period, or if bothered by side effects from the anti-nausea medications. Fatigue- Patient informed that fatigue is one of the most common side effects from chemotherapy. There are no restrictions on activity during time of chemo, but patient encouraged to pace self and balance activity with rest. Encouraged patient to adopt a mild to moderate intensity exercise routine such as walking for 30 minutes daily or most of the days during the week to help promote energy levels. Reviewed benefits of exercise such as improvement in blood pressure, increased endurance, easingpain of arthritic joints, better sleep patterns, and improves energy levels and appetite. Patient encouraged to delegate tasks to family members and friends in an effort to conserve energy. Discussedproper nutrition in order to combat fatigue. Encouraged adding an additional 500 calories to daily diet to maintain weight and promote energy levels. Encouraged high protein diet and good sources of protein include meats such as fish, beet and chicken. Myelosupression/Neutropenia- Patient is aware that approximately 7-10 days after chemotherapy, blood counts will be at lowest poin (guera). Instructed to call office for any signs or symptoms of infection including a temperature of >100.4, cough, urinary pain or problems, and upper respiratory symptoms such as rhinorrhea and congestion. Also call for any abnormal bruising or blood in stool, urine, or epistaxis that does not stop after 5 minutes of pressure. Encouraged good hand washing and avoiding sick contacts. * Side effects of Neupogen/Neulasta: Bone pain, achiness, and low grade fever reviewed. Encouraged either Ibuprofen, Tylenol or OTC Claritin for relief. Mouth sores- Patient instructed on good oral hygiene. Patient is aware of potential for stomatitis caused by chemotherapy. Instructed to begin a mouth rinse with either OTC Biotene or homemade rinse which includes 1tsp of salt + 1tsp of baking soda + 1 quart of water. Use rinse at least 4 times perday and call office if develops a mouth sore as there are medications that can be called in for treatment. Constipation- If constipation becomes an issue recommended OTC Senna 1-3 tablets once to twice per day or Miralax 1 capful daily to promote bowel regularity. If no relief or no BM in 48 hours, patient should contact office for further instructions especially if accompanied by moderate to severe abdominal pain, inability to pass flatus, and vomiting. Diarrhea- If diarrhea becomes an issue recommended OTC Immodium or generic brand of an anti-diarrheal. Take 2 capsules after a loose/watery BM. If no relief can repeat and take 1 cap every 2-3 hours.DO NOT EXCEED 8 CAPS IN ONE DAY. If still no relief and diarrhea persists, especially if accompanied by fever, moderate to severe abdominal cramping, or blood in stool, patient should notify office im mediately. Discussed importance of increasing PO intake of fluids (water/Gatorade) if diarrhea occurs. If diarrhea lasts more than 24 hours, needs to notify office. Headaches- Can be common with some chemotherapy regimens and patient encouraged to take Tylenol 500mg q8 hours as needed for relief. If changes in vision, flashers, dizziness, feeling faint, or numbness/tingling to face then patient instructed to call office Body aches/arthralgias/myalgias- Can be common after Taxane based therapy and Neulasta. Patient hasno renal issues, can take Ibuprofen 600mg q 8 hours as needed with food for myalgias. For Neulasta induced pain, encouaraged Claritin D. Hair loss- Information on hair loss and wigs provided for patient as well. List of wig shops provided. Neuropathy- Can try Vitamin B6 100mg BID, keep feet protected with supportive footwear and house slippers, turn down hot water in home to avoid injury. Call if painful, will continue to monitor with each cycle. Patient is aware that all dental procedures, invasive procedures such as colonoscopy or pap smear and vaccinations should be postponed until completion of chemotherapy unless already approved by Oncologist. Patient instructed to notify office or speak with oncologist prior to initiating any new medications, vitamins, or supplements. Patient instructed to notify oncologist of any travel plans thatmay interfere with treatment schedule. Patient encouraged to call office with concerns and questions during business hours from 8am to 4:00pm. Given number for exchange in case of emergencies after hours. General chemotherapy instruction packet given to patient. Chemotherapy medication information sheets given to patient Calendar provided with treatment and post med schedule Information on taste alterations provided Patient has social work professor's contact information Post medications called into pharmacy and patient educated on how to take. All labs and chemo orders have been entered into [employer] by Oncologist Authorization obtained for medications Verbal consent obtained to proceed with the above treatment. Will obtain signed consent during nextoffice visit. All questions have been answered and patient verbalized understanding of teaching and chemotherapy information. Prostate cancer --Planning to start chemotherapy with Zytiga --Zofran prescribed for nausea/vomiting RTC on 12/24/22 Thank you for the opportunity to participate in the care of this patient. Please let me know if I may be of any further assistance. On the day of the visit, I spent 30 minutes providing care to this patient including Preparing to see the patient, Obtaining and/or reviewing separately obtained history, Performing a medically appropriate examination and/or evaluation, Counseling and educating the patient/family/caregiver, Ordering medications, tests or procedures, Documenting clinical information in the medical record, Independently interpreting results and communicating results to the patient/family/caregiver (not separatelyreported), and Care coordination (not separately reported). This encounter was completed via two-way synchronous audio and video communication. Patient expressed understanding that using technology outside of [facility] has higher potential tointroduce privacy risks: Yes Patient's identity confirmed yes Patient gave verbal consent to have these services billed to their insurance and expressed understanding that co-insurance and deductible may apply: yes [facility] Hematology and Oncology [facility] documented in this encounter Plan of Treatment Upcoming Encounters Date Type Department Care Team (Late st Contact Info) Description 12/13/2024 9:45 AM NEWSPAPER PRESS OPERATOR APPRENTICE Office Visit [facility] Oncology and Hematology [facility] [address] [facility] [address] [place] [address] Glenn Al MD [address] [facility] [address] [place] [address] documented as of this encounter Visit Diagnoses Diagnosis Prostate cancer- Primary Malignant neoplasm of prostate documented in this encounter Care Teams Chemical Laboratory Scientist Relationship Specialty Start Date End Date Anirudh Craft MD [address] [facility] [address] [place] [phone] PCP - General Internal Medicine 08/01/20 09/19/24 documented as of this encounter
--- OUTSIDE RECORDS SUMMARY | 2024-10-30 02:30 | XMS_ITS | Encounter Summary ---
Author Organization [facility] Address [address] [place] [address] Care Team Providers Care Legal Advisor Name Role Phone Anirudh Craft MD Primary Care Provider Encounter Details Date Type Department Care Team (Late st Contact Info) Description 08/07/2022 Abstract [facility] Oncology and Hematology [facility] [id number] [place] [phone] [place] [id number] [address] Social History Tobacco Use Types [...] st Contact Info) Description 12/13/2024 9:45 AM PLANTING SUPERVISOR Office Visit [facility] Oncology and Hematology [facility] [address] [place] [address] Glenn Al MD [address] [address] documented as of this encounter Visit Diagnoses Not on filedocumented in this encounter Care Teams Legal Advisor Relationship Specialty Start Date End Date Anirudh Craft MD [address] [address] PCP - General Internal Medicine 08/01/20 09/19/24 documented as of this encounter
--- OUTSIDE RECORDS SUMMARY | 2024-10-30 02:31 | XMS_ITS | Encounter Summary ---
Author Organization [facility] Address [address] [facility] Attn: Epic Prelude ADT ESTHER WILSON [address] Care Team Providers Care Supervisor Finishing Name Role Phone Anirudh Craft MD Primary Care Provider Encounter Details Date Type Department Care Team (Latest Contact Info) Description 07/02/2021 Travel Social History Tobacco Use Types Packs/Day [...] have Coronavirus / COVID-19? No / Unsure 07/02/2021 9:45 AM CDT documented as of this encounter Plan of Treatment Upcoming Encounters Date Type Department Care Team (Late st Contact Info) Description 12/13/2024 9:45 AM LABORATORY TECH Office Visit [facility] Oncology and Hematology - [place] [address] [facility] [address] [place] [address] Glenn Al MD [address] [facility] [address] [place] [address] documented as of this encounter Visit Diagnoses Not on filedocumented in this encounter Care Teams Supervisor Finishing Relationship Specialty Start Date End Date Anirudh Craft MD [address] [address] PCP - General Internal Medicine 08/01/20 09/19/24 documented as of this encounter
--- OUTSIDE RECORDS SUMMARY | 2024-10-30 02:31 | XMS_ITS | Encounter Summary ---
Author Organization [facility] Address [address] [place] [address] Care Team Providers Care Wheel Buffer Name Role Phone Anirudh Craft MD Primary Care Provider [phone] Encounter Details Date Type Department Care Team (Latest Contact Info) Description 07/02/2021 9:46 AM CDT - 07/02/2021 11:59 PM CDT Hospital Encounter [facility] Laboratory Services [facility] [address] [place] [address] Kailyn Blood MD [address] [place] [address] Discharge Disposition: Home or Self [...] st Contact Info) Description 12/13/2024 9:45 AM NURSING ASSOCIATE Office Visit [facility] Oncology and Hematology [facility] [address] [facility] [address] [place] [address] Glenn Al MD [address] [facility] [address] [place] [address] documented as of this encounter Procedures Procedure Name Priority Date/Time Associated Diagnosis Comments CBC WITH DIFFERENTIAL Stat 07/02/2021 9:51 AM CDT 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 [facility] POTASSIUM 4.3 3.5 - 5.0 mmol/L 07/02/2021 10:55 AM CDT [employer] [facility] - . [place] CHLORIDE 108(H) 98 - 107 mmol/L 07/02/2021 10:55 AM CDT [employer] [facility] CO2 27 22 - 29 mmol/L 07/02/2021 10:55 AM [facility] [place] CALCIUM 9.2 8.6 - 10.2 mg/dL 07/02/2021 10:55 AM CDT [employer] [facility] BUN 14 8 - 23 mg/dL 07/02/2021 10:55 AM [employer] [facility] - [facility] CREATININE 0.76 0.67 - 1.17 mg/dL 07/02/2021 10:55 AM [employer] LABORATORY SERVICES - [facility] Comment:The GFR result is no t clinically significant on patients <18 or >70 years of age. GLUCOSE 94 74 - 99 mg/dL 07/02/2021 10:55 AM [facility] LABORATORY SERVICES - . [facility] TOTAL PROTEIN 7.0 6.7 - 8.6 g/dL 07/02/2021 10:55 AM [employer] SERVICES - . [facility] ALBUMIN 4.6 3.5 - 5.2 g/dL 07/02/2021 10:55 AM [employer] [facility] - [facility] BILIRUBIN TOTAL 0.3 0.2 - 1.1 mg/dL 07/02/2021 10:55 AM [facility]ORATORY [facility] - [facility] ALKALINE PHOSPHATASE 61 40 - 129 U/L 07/02/2021 10:55 AM [employer] [facility] - . [facility] AST 23 <41 U/L 07/02/2021 10:55 AM [employer] [facility] - [facility] ALT 15 <42 U/L 07/02/2021 10:55 AM [employer] [facility] - [facility] GFR >60 mL/min/1.7 3 sq meter 07/02/2021 10:55 AM [employer] [facility] - [facility] Comment: eGFR has not been validated for [...] result. GFR, >60 mL/min/1.7 3 sq meter 07/02/2021 10:55 AM [facility] LABORATORY SERVICES [facility] ANION GAP 9 8 - 16 mmol/L 07/02/2021 10:55 AM [facility] Blood Venipuncture / Unknown 07/02/2021 9:51 AM CDT 07/02/2021 10:16 AM CDT [facility] - [facility] - 07/02/2021 10:55 AM CDT Samples containing indocyanine green cause interferences on Total and/or Direct Bilirubin and must not be measured. Kailyn Blood MD CHEMISTRY ORDERABLES [facility] [employer] [facility] CLIA# [id number] [address] [place] [address] * (ABNORMAL) CBC WITH DIFFERENTIAL (07/02/2021 9:51 AM CDT) WBC 7.7 4.0 - 9.8 K/uL 07/02/2021 10:19 AM [facility] RBC 4.18(L) 4.50 - 5.40 M/uL 07/02/2021 10:19 AM [facility] [employer] [facility] HEMOGLOBIN 13.5(L) 13.6 - 16.5 g/dL 07/02/2021 10:19 AM [facility] [employer] [facility] HEMATOCRIT 43.0 40.0 - 48.0 % 07/02/2021 10:19 AM [facility] [employer] [facility] MCV 102.9(H) 82.0 - 99.0 fL 07/02/2021 10:19 AM [facility] [employer] [facility] MCH 32.3 27.2 - 32.6 pg 07/02/2021 10:19 AM [facility] [employer] [facility] MCHC 31.4(L) 31.5 - 35.5 g/dL 07/02/2021 10:19 AM [facility] [employer] [facility] RDW 12.9 11.5 - 14.5 % 07/02/2021 10:19 AM [facility] [employer] [facility] RDW-STDEV 49.0(H) 37.1 - 48.7 fL 07/02/2021 10:19 AM CDT [employer] [facility] PLATELETS 202 140 - 350 K/uL 07/02/2021 10:19 AM CDT [employer] [facility] - [facility] MPV 10.5 9.3 - 12.4 fL 07/02/2021 10:19 AM CDT [facility] NEUTROPHILS 45 % 07/02/2021 10:19 AM CDT [facility] [facility] LYMPHOCYTES 39 % 07/02/2021 10:19 AM CDT [facility] MONOCYTES 10 % 07/02/2021 10:19 AM CDT [facility] EOSINOPHILS 5 % 07/02/2021 10:19 AM CDT [facility] BASOPHILS 1 % 07/02/2021 10:19 AM CDT [facility] IMMATURE GRANULOCYTES 0 % 07/02/2021 10:19 AM CDT [facility] - [facility] NEUTROPHIL ABSOLUTE 3.46 1.90 - 7.00 K/uL 07/02/2021 10:19 AM CDT [facility] - [facility] LYMPHOCYTE ABSOLUTE 3.03 0.70 - 4.50 K/uL 07/02/2021 10:19 AM CDT [facility] - [facility] MONOCYTE ABSOLUTE 0.73 0.10 - 1.30 K/uL 07/02/2021 10:19 AM CDT [facility] - [facility] EOSINOPHIL ABSOLUTE 0.40 0.00 - 0.70 K/uL 07/02/2021 10:19 AM CDT [facility] [facility] - [facility] BASOPHILS ABSOLUTE 0.05 0.00 - 0.20 K/uL 07/02/2021 10:19 AM CDT [facility] - [facility] IMMATURE GRANULOCYTES ABSOLUTE 0.03 0.00 - 0.03 K/uL 07/02/2021 10:19 AM CDT [employer] Blood Venipuncture / Unknown 07/02/2021 9:51 AM CDT 07/02/2021 10:17 AM CDT Kailyn Blood MD HEMATOLOGY ORDERABLE S [facility]# [id number] [address] [place] [address] * PSA (07/02/2021 9:51 AM CDT) PSA <0.1 < OR = 4.0 ng/mL [facility] Comment: The total PSA value from this assay system is standardized against the WHO standard. The test result will be approximately 20% lower when compared to the equimolar-standardized total PSA (Herbie [place]bourn). Comparison of serial PSA results should be interpreted with this fact in mind. This test was performed using the Siemens chemiluminescent method. Values obtained from different assay methods cannot be used interchangeably. PSA levels, regardless of value, should not be interpreted as absolute evidence of the presence or absence of disease. Test Performed at: [facility] [employer] [id number] [place] [address] ??[id number] Neri Ruiz D.O., MPH Blood 07/02/2021 9:51 AM CDT 07/02/2021 6:09 PM CDT Kailyn Blood MD CHEMISTRY ORDERABLES [facility] [address] [place] [address] documented in this encounter Visit Diagnoses Diagnosis Prostate cancer Malignant neoplasm of prostate Malignant neoplasm of parotid gland documented in this encounter Care Teams Wheel Buffer Relationship Specialty Start Date End Date Anirudh Craft MD [address] [address] PCP - General Internal Medicine 08/01/20 09/19/24 documented as of this encounter
--- OUTSIDE RECORDS SUMMARY | 2024-10-30 02:31 | XMS_ITS | Encounter Summary ---
Author Organization [employer] [facility] Address [address] [place] [address] Care Team Providers Care Clearance Center Manager Name Role Phone Anirudh Craft MD Primary Care Provider Reason for Visit * Tx/Med Therapy Plan Auth (Routine) - Closed Specialty Diagnoses / Procedures Referred By Cecile t Referred To Contact Diagnoses Prostate cancer Cancer, metastatic to bone Procedures DC LEUPROLIDE ACETATE SUSPNSION Kailyn Cat MD [address] [place] [address] [facility] [address] [place] [address] Referral ID Status Reason Start Date Expiration Date Visits Re quested Visits Authorized [id number] Closed 12/12/2020 12/24/2022 99 99 Encounter Details Date Type Department Care Team (Latest Contact Info) Description 03/27/2021 10:57 AM CDT - 03/27/2021 11:59 PM CDT Hospital Encounter [facility] Infusion Center [facility] [address] [place] [address] Kailyn Blood MD [address] [place], [place] [id number] Injection Pod 1, Felicitas Discharge Disposition: Home [...] have Coronavirus / COVID-19? No / Unsure 03/27/2021 9:53 AM CDT documented as of this encounter [...] as of this encounter Progress Notes * Emily Allen RN - 03/27/2021 11:09 AM CDT Pt admitted to infusion center [...] st Contact Info) Description 12/13/2024 9:45 AM CHECK CLERK Office Visit [facility] Oncology and Hematology - [place] [address] [place] [address] Glenn Al MD [address] [facility] [address] [place] [address] documented as of this encounter [...] subCUT, ONE TIME ONLY, 1 dose, On Thu03/27/21 at 1115, Routine Given 03/27/2021 11:07 AM CDT 22.5 mg Buttock, Left documented in this encounter Care Teams Clearance Center Manager Relationship Specialty Start Date End Date Anirudh Craft MD [address] [id number] PCP - General Internal Medicine 08/01/20 09/19/24 documented as of this encounter
--- OUTSIDE RECORDS SUMMARY | 2024-10-30 02:31 | XMS_ITS | Encounter Summary ---
Author Organization [facility] Address [address] [place] [address] Care Team Providers Care Track Sweeper Name Role Phone Anirudh Craft MD Primary Care Provider Encounter Details Date Type Department Care Team (Late Contact Info) Description 07/01/2021 Orders Only [facility] ONCOLOGY AND HEMATOLOGY - [place] [address] [facility] [address] [place] [phone] Kailyn Blood MD [address] [facility] [address] [place] [phone] Prostate cancer (Primary Dx); Malignant neoplasm of parotid gland Social History Tobacco Use Types Packs/Day Years [...] (Late Contact Info) Description 12/13/2024 9:45 AM KNOBBER Office Visit [facility] Oncology and Hematology - [facility] Renate Dennison [address] [place] [phone] Glenn Al MD [address] [facility] [address] [place] [phone] documented as of this encounter Results * PSA (07/02/2022 9:48 AM CDT) PSA <0.1 <4.0 ng/mL 07/04/2022 11:05 AM CDT [facility] [employer] [facility] Blood Venipuncture / Unknown 07/02/2022 9:48 AM CDT 07/02/2022 10:00 AM CDT [facility] - 07/04/2022 11:05 AM CDT The concentration of PSA in a given specimen, as determined by assays from different manufacturers, can vary because of differences in assay methods and reagent specificity. Values obtained with different assay methods cannot be used interchangeably. The testing method in use is the WILLIAM Electrochemiluminescence Immunoassay. Kailyn Blood MD CHEMISTRY ORDERABLES [facility] [employer] [facility]# [id number] [address] [place] [address] * COMPREHENSIVE METABOLIC PANEL (07/02/2022 9:48 AM CDT) SODIUM 142 136 - 145 mmol/L 07/02/2022 10:44 AM CDT [facility] [employer] [facility] POTASSIUM 4.0 3.5 - 5.0 mmol/L 07/02/2022 10:44 AM CDT [facility] [employer] [facility] CHLORIDE 105 98 - 107 mmol/L 07/02/2022 10:44 AM CDT [facility] [employer] [facility] CO2 26 22 - 29 mmol/L 07/02/2022 10:44 AM CDT [facility] [employer] [facility] CALCIUM 9.6 8.6 - 10.2 mg/dL 07/02/2022 10:44 AM CDT [facility] [employer] [facility] BUN 16 8 - 23 mg/dL 07/02/2022 10:44 AM [facility] LABORATORY [facility] CREATININE 0.74 0.67 - 1.17 mg/dL 07/02/2022 10:44 AM [facility] Comment:The GFR result is no t clinically significant on patients <18 or >70 years of age. GLUCOSE 91 74 - 99 mg/dL 07/02/2022 10:44 AM [facility] TOTAL PROTEIN 7.0 6.7 - 8.6 g/dL 07/02/2022 10:44 AM [facility] ALBUMIN 4.8 3.5 - 5.2 g/dL 07/02/2022 10:44 AM [facility] [employer] [facility] BILIRUBIN TOTAL 0.3 0.2 - 1.1 mg/dL 07/02/2022 10:44 AM [facility] ALKALINE PHOSPHATASE 94 40 - 129 U/L 07/02/2022 10:44 AM [facility] [employer] [facility] AST 26 <41 U/L 07/02/2022 10:44 AM [facility] [employer] [facility] ALT 18 <42 U/L 07/02/2022 10:44 AM [facility] [employer] [facility] GFR >60 mL/min/1.7 3 sq meter 07/02/2022 10:44 AM [facility] Comment:eGFR calculated with 2020 CKD-EPI equation. Vegetarian diet, extremely high or low muscle mass, and may affect results. Cystatin C with Glomerular Filtration Rate is a suitable alternative for these patients. ANION GAP 11 8 - 16 mmol/L 07/02/2022 10:44 AM [facility] [employer] [facility] Blood Venipuncture / Unknown 07/02/2022 9:48 AM T 07/02/2022 10:00 AM [facility] LABORATORY SERVICES [facility] - 07/02/2022 10:44 AM [facility] Samples containing indocyanine green cause interferences on Total and/or Direct Bilirubin and must not be measured. Kailyn Blood MD CHEMISTRY ORDERABLES [facility]AT[facility] CLIA# [id number] [address] [place] [address] * (ABNORMAL) CBC WITH DIFFERENTIAL (07/02/2022 9:48 AM CDT) [facility] WBC 8.5 4.0 - 9.8 K/uL 07/02/2022 9:59 AM CDT [facility] RBC 4.16(L) 4.50 - 5.40 M/uL 07/02/2022 9:59 AM CDT [facility] HEMOGLOBIN 13.5(L) 13.6 - 16.5 g/dL 07/02/2022 9:59 AM CDT [facility] HEMATOCRIT 41.1 40.0 - 48.0 % 07/02/2022 9:59 AM CDT [facility] MCV 98.8 82.0 - 99.0 fL 07/02/2022 9:59 AM CDT [facility] MCH 32.5 27.2 - 32.6 pg 07/02/2022 9:59 AM CDT [facility] MCHC 32.8 31.5 - 35.5 g/dL 07/02/2022 9:59 AM CDT [facility] RDW 12.8 11.5 - 14.5 % 07/02/2022 9:59 AM CDT [facility] RDW-STDEV 46.3 37.1 - 48.7 fL 07/02/2022 9:59 AM CDT [facility] PLATELETS 213 140 - 350 K/uL 07/02/2022 9:59 AM CDT [facility] MPV 11.0 9.3 - 12.4 fL 07/02/2022 9:59 AM CDT [facility] NEUTROPHILS 47 % 07/02/2022 9:59 AM CDT [facility] LYMPHOCYTES 39 % 07/02/2022 9:59 AM CDT [facility] MONOCYTES 9 % 07/02/2022 9:59 AM CDT [facility] EOSINOPHILS 4 % 07/02/2022 9:59 AM CDT [facility] BASOPHILS 1 % 07/02/2022 9:59 AM CDT [facility] IMMATURE GRANULOCYTES 0 % 07/02/2022 9:59 AM CDT [facility]ORY SERVICES [facility] NEUTROPHIL ABSOLUTE 4.00 1.90 - 7.00 K/uL 07/02/2022 9:59 AM CDT [facility] LABORATORY SERVICES - [facility] LYMPHOCYTE ABSOLUTE 3.26 0.70 - 4.50 K/uL 07/02/2022 9:59 AM CDT [facility] MONOCYTE ABSOLUTE 0.75 0.10 - 1.30 K/uL 07/02/2022 9:59 AM CDT [facility]AT[facility] EOSINOPHIL ABSOLUTE 0.36 0.00 - 0.70 K/uL 07/02/2022 9:59 AM CDT [facility] BASOPHILS ABSOLUTE 0.06 0.00 - 0.20 K/uL 07/02/2022 9:59 AM CDT [facility] IMMATURE GRANULOCYTES ABSOLUTE 0.02 0.00 - 0.03 K/uL 07/02/2022 9:59 AM CDT [facility] LABORATORY SERVICES - [facility] Blood Venipuncture / Unknown 07/02/2022 9:48 AM CDT 07/02/2022 9:56 AM CDT Kailyn Blood MD HEMATOLOGY ORDERABLE S [facility] LABORATORY SERVICES [facility]# [id number] [address] [facility] [place] [address] * PSA (04/01/2022 9:10 AM CDT) PSA <0.1 <4.0 ng/mL 04/01/2022 10:07 AM CDT [facility] LABORATORY SERVICES - [facility] Blood Venipuncture / Unknown 04/01/2022 9:10 AM CDT 04/01/2022 9:17 AM CDT Narrative [facility] LABORATORY [facility] - 04/01/2022 10:07 AM CDT The concentration of PSA in a given specimen, as determined by assays from different manufacturers, can vary because of differences in assay methods and reagent specificity. Values obtained with different assay methods cannot be used interchangeably. The testing method in use is the WILLIAM Electrochemiluminescence Immunoassay. Kailyn Blood MD CHEMISTRY ORDERABLES [facility] LABORATORY [facility] CLIA# [id number] [address] [facility] [place] [address] * (ABNORMAL) COMPREHENSIVE METABOLIC PANEL (04/01/2022 9:10 AM CDT) SODIUM 142 136 - 145 mmol/L 04/01/2022 9:59 AM CDT [facility] POTASSIUM 4.4 3.5 - 5.0 mmol/L 04/01/2022 9:59 AM T [facility] LABORATORY [facility] CHLORIDE 105 98 - 107 mmol/L 04/01/2022 9:59 AM CDT [facility]ATORY [facility] CO2 26 22 - 29 mmol/L 04/01/2022 9:59 AM T [facility] CALCIUM 9.8 8.6 - 10.2 mg/dL 04/01/2022 9:59 AM CDT [facility] BUN 19 8 - 23 mg/dL 04/01/2022 9:59 AM CDT [facility] LABORATORY [facility] CREATININE 0.75 0.67 - 1.17 mg/dL 04/01/2022 9:59 AM T [facility]ORY [facility] Comment:The GFR result is no t clinically significant on patients <18 or >70 years of age. GLUCOSE 104(H) 74 - 99 mg/dL 04/01/2022 9:59 AM T [facility] LABORATORY [facility] TOTAL PROTEIN 7.3 6.7 - 8.6 g/dL 04/01/2022 9:59 AM CDT [facility]ATORY [facility] ALBUMIN 4.9 3.5 - 5.2 g/dL 04/01/2022 9:59 AM T [facility] BILIRUBIN TOTAL 0.4 0.2 - 1.1 mg/dL 04/01/2022 9:59 AM T [facility] ALKALINE PHOSPHATASE 94 40 - 129 U/L 04/01/2022 9:59 AM T [facility] AST 23 <41 U/L 04/01/2022 9:59 AM T [facility] ALT 17 <42 U/L 04/01/2022 9:59 AM T [facility] GFR >60 mL/min/1.7 3 sq meter 04/01/2022 9:59 AM [facility] Comment:eGFR calculated with 2020 CKD-EPI equation. Vegetarian diet, extremely high or low muscle mass, and may affect results. Cystatin C with Glomerular Filtration Rate is a suitable alternative for these patients. ANION GAP 11 8 - 16 mmol/L 04/01/2022 9:59 AM [facility] Blood Venipuncture / Unknown 04/01/2022 9:10 AM CDT 04/01/2022 9:17 AM CDT [facility] - 04/01/2022 9:59 AM CDT Samples containing indocyanine green cause interferences on Total and/or Direct Bilirubin and must not be measured. Kailyn Blood MD CHEMISTRY ORDERABLES [facility]# [id number] [address] [facility] [place] [address] * (ABNORMAL) CBC WITH DIFFERENTIAL (04/01/2022 9:10 AM CDT) WBC 8.4 4.0 - 9.8 K/uL 04/01/2022 9:18 AM T [facility] RBC 4.08(L) 4.50 - 5.40 M/uL 04/01/2022 9:18 AM [facility] HEMOGLOBIN 13.7 13.6 - 16.5 g/dL 04/01/2022 9:18 AM CDT [facility] - [facility] HEMATOCRIT 42.1 40.0 - 48.0 % 04/01/2022 9:18 AM CDT [facility] - [facility] MCV 103.2(H) 82.0 - 99.0 fL 04/01/2022 9:18 AM CDT [facility] LABORATORY SERVICES - . [facility] MCH 33.6(H) 27.2 - 32.6 pg 04/01/2022 9:18 AM CDT [facility] LABORATORY SERVICES - [facility] MCHC 32.5 31.5 - 35.5 g/dL 04/01/2022 9:18 AM CDT [facility] LAB[facility]ATORY SERVICES - [facility] RDW 12.8 11.5 - 14.5 % 04/01/2022 9:18 AM CDT [facility]AT[facility] SERVICES - [facility] RDW-STDEV 48.5 37.1 - 48.7 fL 04/01/2022 9:18 AM CDT [facility]ATORY SERVICES - [facility] PLATELETS 207 140 - 350 K/uL 04/01/2022 9:18 AM CDT [facility]AT[facility] SERVICES - [facility] MPV 11.1 9.3 - 12.4 fL 04/01/2022 9:18 AM CDT [facility] NEUTROPHILS 49 % 04/01/2022 9:18 AM CDT [facility] - [facility] LYMPHOCYTES 35 % 04/01/2022 9:18 AM CDT [facility] MONOCYTES 11 % 04/01/2022 9:18 AM CDT [facility] EOSINOPHILS 4 % 04/01/2022 9:18 AM CDT [facility] BASOPHILS 1 % 04/01/2022 9:18 AM CDT [facility] IMMATURE GRANULOCYTES 0 % 04/01/2022 9:18 AM CDT [facility] - [facility] NEUTROPHIL ABSOLUTE 4.10 1.90 - 7.00 K/uL 04/01/2022 9:18 AM CDT [facility] LABORATORY SERVICES - . [facility] LYMPHOCYTE ABSOLUTE 2.96 0.70 - 4.50 K/uL 04/01/2022 9:18 AM CDT [facility] - [facility] MONOCYTE ABSOLUTE 0.90 0.10 - 1.30 K/uL 04/01/2022 9:18 AM CDT [facility]ATORY [facility] - [facility] EOSINOPHIL ABSOLUTE 0.32 0.00 - 0.70 K/uL 04/01/2022 9:18 AM CDT [facility]ORY [facility] - [facility] BASOPHILS ABSOLUTE 0.06 0.00 - 0.20 K/uL 04/01/2022 9:18 AM CDT [facility]ATORY SERVICES - [facility] IMMATURE GRANULOCYTES ABSOLUTE 0.02 0.00 - 0.03 K/uL 04/01/2022 9:18 AM CDT [facility] LABORATORY SERVICES - [facility] Blood Venipuncture / Unknown 04/01/2022 9:10 AM CDT 04/01/2022 9:16 AM CDT Kailyn Blood MD HEMATOLOGY ORDERABLE S Performing Organization Address [facility] Co de Phone Number [facility] [employer] [facility] CLIA# [id number] [address] [place] [address] * PSA (12/30/2021 9:55 AM KNOBBER) PSA <0.1 <4.0 ng/mL 12/30/2021 11:01 AM KNOBBER [facility] [employer] [facility] Blood Venipuncture / Unknown 12/30/2021 9:55 AM KNOBBER 12/30/2021 10:14 AM KNOBBER Narrative [facility] LABORATORY [facility] - 12/30/2021 11:01 AM KNOBBER The concentration of PSA in a given specimen, as determined by assays from different manufacturers, can vary because of differences in assay methods and reagent specificity. Values obtained with different assay methods cannot be used interchangeably. The testing method in use is the WILLIAM Electrochemiluminescence Immunoassay. Kailyn Blood MD CHEMISTRY ORDERABLES Performing Organization Address [facility]/ZIP Co de Phone Number [facility] [employer] [facility] CLIA# [id number] [address] [place] [address] * (ABNORMAL) COMPREHENSIVE METABOLIC PANEL (12/30/2021 9:55 AM KNOBBER) SODIUM 145 136 - 145 mmol/L 12/30/2021 10:57 AM [employer] [facility]ATORY [facility] - [facility] POTASSIUM 4.3 3.5 - 5.0 mmol/L 12/30/2021 10:57 AM [employer] [facility] CHLORIDE 105 98 - 107 mmol/L 12/30/2021 10:57 AM [employer] [facility] CO2 28 22 - 29 mmol/L 12/30/2021 10:57 AM [employer] [facility] CALCIUM 9.9 8.6 - 10.2 mg/dL 12/30/2021 10:57 AM [employer] [facility] BUN 16 8 - 23 mg/dL 12/30/2021 10:57 AM [employer] [facility] - [facility] CREATININE 0.74 0.67 - 1.17 mg/dL 12/30/2021 10:57 AM [employer] [facility] - [facility] Comment:The GFR result is no t clinically significant on patients <18 or >70 years of age. GLUCOSE 103(H) 74 - 99 mg/dL 12/30/2021 10:57 AM [employer] [facility] - [facility] [place] TOTAL PROTEIN 7.3 6.7 - 8.6 g/dL 12/30/2021 10:57 AM [employer] [facility] - [facility] ALBUMIN 4.7 3.5 - 5.2 g/dL 12/30/2021 10:57 AM [employer] [facility] - [facility] BILIRUBIN TOTAL 0.3 0.2 - 1.1 mg/dL 12/30/2021 10:57 AM [employer] [facility] - [facility] ALKALINE PHOSPHATASE 109 40 - 129 U/L 12/30/2021 10:57 AM [employer] [facility] - [facility] AST 22 <41 U/L 12/30/2021 10:57 AM [employer] [facility] - [facility] ALT 16 <42 U/L 12/30/2021 10:57 AM [employer] [facility] GFR >60 mL/min/1. 73 sq meter 12/30/2021 10:57 AM [employer] [facility] Comment: eGFR calculated with 2020 CKD-EPI equation. ??Vegetarian diet, extremely high or low muscle mass, and may affect results. ??Cystatin C with Glomerular Filtration Rate is a suitable alternative for these patients. The National Kidney Foundation and the [place] Society of Nephrology (NKF-ASN) recommends using the [...] 8 - 16 mmol/L 12/30/2021 10:57 AM [facility] [employer] [facility] Blood Venipuncture / Unknown 12/30/2021 9:55 AM [facility] 12/30/2021 10:14 AM [facility] - 12/30/2021 10:57 AM [facility] Samples containing indocyanine green cause interferences on Total and/or Direct Bilirubin and must not be measured. Kailyn Blood MD CHEMISTRY ORDERABLES [facility]# [id number] [address] [place] [address] * (ABNORMAL) CBC WITH DIFFERENTIAL (12/30/2021 9:55 AM KNOBBER) [facility] WBC 7.5 4.0 - 9.8 K/uL 12/30/2021 10:09 AM [facility] [employer] [facility] RBC 4.06(L) 4.50 - 5.40 M/uL 12/30/2021 10:09 AM [facility] [employer] [facility] HEMOGLOBIN 13.4(L) 13.6 - 16.5 g/dL 12/30/2021 10:09 AM [facility] HEMATOCRIT 40.5 40.0 - 48.0 % 12/30/2021 10:09 AM [employer] [facility] MCV 99.8(H) 82.0 - 99.0 fL 12/30/2021 10:09 AM [employer] [facility] MCH 33.0(H) 27.2 - 32.6 pg 12/30/2021 10:09 AM [employer] [facility] - [facility] MCHC 33.1 31.5 - 35.5 g/dL 12/30/2021 10:09 AM [employer] [facility] RDW 12.5 11.5 - 14.5 % 12/30/2021 10:09 AM [employer] [facility] RDW-STDEV 45.9 37.1 - 48.7 fL 12/30/2021 10:09 AM [employer] [facility] PLATELETS 211 140 - 350 K/uL 12/30/2021 10:09 AM [employer] [facility] MPV 10.7 9.3 - 12.4 fL 12/30/2021 10:09 AM [employer] [facility] NEUTROPHILS 47 % 12/30/2021 10:09 AM [employer] [facility] LYMPHOCYTES 36 % 12/30/2021 10:09 AM [employer] [facility] MONOCYTES 10 % 12/30/2021 10:09 AM [employer] [facility] EOSINOPHILS 6 % 12/30/2021 10:09 AM [employer] [facility] BASOPHILS 1 % 12/30/2021 10:09 AM [employer] [facility] IMMATURE GRANULOCYTES 0 % 12/30/2021 10:09 AM [employer] [facility] NEUTROPHIL ABSOLUTE 3.52 1.90 - 7.00 K/uL 12/30/2021 10:09 AM [employer] [facility] LYMPHOCYTE ABSOLUTE 2.73 0.70 - 4.50 K/uL 12/30/2021 10:09 AM [employer] [facility] MONOCYTE ABSOLUTE 0.73 0.10 - 1.30 K/uL 12/30/2021 10:09 AM [employer] [facility] EOSINOPHIL ABSOLUTE 0.45 0.00 - 0.70 K/uL 12/30/2021 10:09 AM KNOBBER [facility] LABORATORY [facility] BASOPHILS ABSOLUTE 0.04 0.00 - 0.20 K/uL 12/30/2021 10:09 AM [facility] LABORATORY [facility] IMMATURE GRANULOCYTES ABSOLUTE 0.02 0.00 - 0.03 K/uL 12/30/2021 10:09 AM [facility] Blood Venipuncture / Unknown 12/30/2021 9:55 AM KNOBBER 12/30/2021 10:04 AM KNOBBER Kailyn Blood MD HEMATOLOGY ORDERABLE S Performing Organization Address City/[facility]/ZIP Co de Phone Number [facility]# [id number] [address] [place] [address] * PSA (10/01/2021 10:08 AM KNOBBER) PSA <0.1 <4.0 ng/mL 10/01/2021 11:48 AM [facility] [employer] [facility] Blood Venipuncture / Unknown 10/01/2021 10:08 AM KNOBBER 10/01/2021 10:20 AM KNOBBER Narrative [facility] - 10/01/2021 11:48 AM KNOBBER The concentration of PSA in a given specimen, as determined by assays from different manufacturers, can vary because of differences in assay methods and reagent specificity. Values obtained with different assay methods cannot be used interchangeably. The testing method in use is the WILLIAM Electrochemiluminescence Immunoassay. Kailyn Blood MD CHEMISTRY ORDERABLES Performing Organization Address [facility]/ZIP Co de Phone Number [facility]# [id number] [address] [place] [address] * (ABNORMAL) COMPREHENSIVE METABOLIC PANEL (10/01/2021 10:08 AM KNOBBER) SODIUM 141 136 - 145 mmol/L 10/01/2021 10:58 AM [facility] [employer] [facility] POTASSIUM 4.0 3.5 - 5.0 mmol/L 10/01/2021 10:58 AM [employer] [facility] [place] CHLORIDE 106 98 - 107 mmol/L 10/01/2021 10:58 AM [employer] [facility] CO2 25 22 - 29 mmol/L 10/01/2021 10:58 AM [employer] [facility] CALCIUM 9.6 8.6 - 10.2 mg/dL 10/01/2021 10:58 AM [employer] [facility] - [facility] BUN 14 8 - 23 mg/dL 10/01/2021 10:58 AM [employer] [facility] - [facility] [place] CREATININE 0.68 0.67 - 1.17 mg/dL 10/01/2021 10:58 AM [employer] [facility] Comment:The GFR result is no t clinically significant on patients <18 or >70 years of age. GLUCOSE 106(H) 74 - 99 mg/dL 10/01/2021 10:58 AM [employer] [facility] - [facility] [place] TOTAL PROTEIN 7.0 6.7 - 8.6 g/dL 10/01/2021 10:58 AM [employer] [facility] - [facility] ALBUMIN 4.6 3.5 - 5.2 g/dL 10/01/2021 10:58 AM [employer] [facility] - [facility] [place] BILIRUBIN TOTAL 0.3 0.2 - 1.1 mg/dL 10/01/2021 10:58 AM [employer] LABORATORY SERVICES - . [facility] ALKALINE PHOSPHATASE 81 40 - 129 U/L 10/01/2021 10:58 AM [employer] [facility] - [facility] AST 23 <41 U/L 10/01/2021 10:58 AM [employer] [facility] - . [place] ALT 15 <42 U/L 10/01/2021 10:58 AM [employer] [facility] - . [facility] GFR >60 mL/min/1.7 3 sq meter 10/01/2021 10:58 AM [employer] LABORATORY [facility] - . [place] Comment: eGFR has not been validated for [...] mL/min/1.7 3 sq meter 10/01/2021 10:58 AM [facility] [employer] [facility] ANION GAP 10 8 - 16 mmol/L 10/01/2021 10:58 AM [facility] [employer] [facility] Blood Venipuncture / Unknown 10/01/2021 10:08 AM [facility] 10/01/2021 10:20 AM [facility] [employer] [facility] - 10/01/2021 10:58 AM [facility] Samples containing indocyanine green cause interferences on Total and/or Direct Bilirubin and must not be measured. Kailyn Blood MD CHEMISTRY ORDERABLES [facility] [employer] [facility]# [id number] [address] [facility] [place] [address] * (ABNORMAL) CBC WITH DIFFERENTIAL (10/01/2021 10:08 AM [facility]) WBC 7.5 4.0 - 9.8 K/uL 10/01/2021 10:22 AM [facility] [employer] [facility] RBC 4.07(L) 4.50 - 5.40 M/uL 10/01/2021 10:22 AM [facility] [employer] [facility] HEMOGLOBIN 13.2(L) 13.6 - 16.5 g/dL 10/01/2021 10:22 AM [facility] [employer] [facility] HEMATOCRIT 39.5(L) 40.0 - 48.0 % 10/01/2021 10:22 AM [facility] [employer] [facility] MCV 97.1 82.0 - 99.0 fL 10/01/2021 10:22 AM [facility] MCH 32.4 27.2 - 32.6 pg 10/01/2021 10:22 AM [facility] MCHC 33.4 31.5 - 35.5 g/dL 10/01/2021 10:22 AM [employer] [facility] [place] RDW 12.5 11.5 - 14.5 % 10/01/2021 10:22 AM [employer] [facility] RDW-STDEV 45.1 37.1 - 48.7 fL 10/01/2021 10:22 AM [employer] [facility] [place] PLATELETS 207 140 - 350 K/uL 10/01/2021 10:22 AM [facility] [employer] [facility] [place] MPV 10.6 9.3 - 12.4 fL 10/01/2021 10:22 AM [employer] [facility] [place] NEUTROPHILS 47 % 10/01/2021 10:22 AM [employer] [facility] [place] LYMPHOCYTES 40 % 10/01/2021 10:22 AM [employer] [facility] MONOCYTES 9 % 10/01/2021 10:22 AM [employer] [facility] [place] EOSINOPHILS 4 % 10/01/2021 10:22 AM [employer] [facility] [place] BASOPHILS 1 % 10/01/2021 10:22 AM [employer] [facility] [place] IMMATURE GRANULOCYTES 0 % 10/01/2021 10:22 AM [facility] NEUTROPHIL ABSOLUTE 3.48 1.90 - 7.00 K/uL 10/01/2021 10:22 AM [facility] LYMPHOCYTE ABSOLUTE 3.02 0.70 - 4.50 K/uL 10/01/2021 10:22 AM [facility] MONOCYTE ABSOLUTE 0.64 0.10 - 1.30 K/uL 10/01/2021 10:22 AM [facility] EOSINOPHIL ABSOLUTE 0.31 0.00 - 0.70 K/uL 10/01/2021 10:22 AM [facility] BASOPHILS ABSOLUTE 0.04 0.00 - 0.20 K/uL 10/01/2021 10:22 AM [facility] IMMATURE GRANULOCYTES ABSOLUTE 0.01 0.00 - 0.03 K/uL 10/01/2021 10:22 AM [facility] Blood Venipuncture / Unknown 10/01/2021 10:08 AM KNOBBER 10/01/2021 10:18 AM KNOBBER Kailyn Blood MD HEMATOLOGY ORDERABLE S [facility] LABORATORY SERVICES [facility] CLIA# [id number] [place] [address] * PSA (07/02/2021 9:51 AM CDT) PSA <0.1 < OR = 4.0 ng/mL [facility] Comment: The total PSA value from this assay system is standardized against the WHO standard. The test result will be approximately 20% lower when compared to the equimolar-standardized total PSA (Herbie [place]). Comparison of serial PSA results should be interpreted with this fact in mind. This test was performed using the Siemens chemiluminescent method. Values obtained from different assay methods cannot be used interchangeably. PSA levels, regardless of value, should not be interpreted as absolute evidence of the presence or absence of disease. Test Performed at: [facility] [address] [place], [place] ??[phone] Neri Ruiz D.O., MPH Blood 07/02/2021 9:51 AM CDT 07/02/2021 6:09 PM CDT Kailyn Blood MD CHEMISTRY ORDERABLES Performing Organization Address City/[facility]/ZIP Co de Phone Number [facility] [address] [place] [address] * (ABNORMAL) COMPREHENSIVE METABOLIC PANEL (07/02/2021 9:51 AM CDT) SODIUM 144 136 - 145 mmol/L 07/02/2021 10:55 AM CDT [facility] LABORATORY SERVICES [facility] POTASSIUM 4.3 3.5 - 5.0 mmol/L 07/02/2021 10:55 AM CDT [facility] LABORATORY SERVICES - [facility] CHLORIDE 108(H) 98 - 107 mmol/L 07/02/2021 10:55 AM CDT [facility] LABORATORY SERVICES - [facility] CO2 27 22 - 29 mmol/L 07/02/2021 10:55 AM [facility] - [facility] [place] CALCIUM 9.2 8.6 - 10.2 mg/dL 07/02/2021 10:55 AM [facility] LABORATORY SERVICES - [facility] BUN 14 8 - 23 mg/dL 07/02/2021 10:55 AM [facility] LABORATORY SERVICES - . [facility] CREATININE 0.76 0.67 - 1.17 mg/dL 07/02/2021 10:55 AM [facility] LABORATORY SERVICES - . [facility] Comment:The GFR result is no t clinically significant on patients <18 or >70 years of age. GLUCOSE 94 74 - 99 mg/dL 07/02/2021 10:55 AM [facility] LABORATORY SERVICES - . [facility] TOTAL PROTEIN 7.0 6.7 - 8.6 g/dL 07/02/2021 10:55 AM [facility]ATORY [facility] - . [facility] ALBUMIN 4.6 3.5 - 5.2 g/dL 07/02/2021 10:55 AM [facility] LABORATORY SERVICES - . [facility] BILIRUBIN TOTAL 0.3 0.2 - 1.1 mg/dL 07/02/2021 10:55 AM [facility] LABORATORY SERVICES - . [facility] ALKALINE PHOSPHATASE 61 40 - 129 U/L 07/02/2021 10:55 AM [facility] LABORATORY SERVICES - . [facility] AST 23 <41 U/L 07/02/2021 10:55 AM [facility] LAB[facility]ATORY [facility] - . [facility] ALT 15 <42 U/L 07/02/2021 10:55 AM [facility] LABORATORY SERVICES - . [facility] GFR >60 mL/min/1.7 3 sq meter 07/02/2021 10:55 AM [facility] LABORATORY SERVICES - [facility] Comment: eGFR has not been validated for [...] mL/min/1.7 3 sq meter 07/02/2021 10:55 AM CDT [facility] LABORATORY [facility] ANION GAP 9 8 - 16 mmol/L 07/02/2021 10:55 AM CDT [facility] LABORATORY SERVICES - [facility] Blood Venipuncture / Unknown 07/02/2021 9:51 AM CDT 07/02/2021 10:16 AM CDT [facility] LABORATORY SERVICES - [facility] - 07/02/2021 10:55 AM CDT Samples containing indocyanine green cause interferences on Total and/or Direct Bilirubin and must not be measured. Kailyn Blood MD CHEMISTRY ORDERABLES [facility] [employer] [facility] CLIA# [id number] [address] [facility] [place] [address] * (ABNORMAL) CBC WITH DIFFERENTIAL (07/02/2021 9:51 AM CDT) WBC 7.7 4.0 - 9.8 K/uL 07/02/2021 10:19 AM T [facility] LABORATORY [facility] RBC 4.18(L) 4.50 - 5.40 M/uL 07/02/2021 10:19 AM T [facility] LABORATORY [facility] HEMOGLOBIN 13.5(L) 13.6 - 16.5 g/dL 07/02/2021 10:19 AM CDT [facility] LABORATORY [facility] HEMATOCRIT 43.0 40.0 - 48.0 % 07/02/2021 10:19 AM CDT [facility] LABORATORY [facility] MCV 102.9(H) 82.0 - 99.0 fL 07/02/2021 10:19 AM CDT [facility] LABORATORY [facility] MCH 32.3 27.2 - 32.6 pg 07/02/2021 10:19 AM CDT [facility] LABORATORY [facility] MCHC 31.4(L) 31.5 - 35.5 g/dL 07/02/2021 10:19 AM CDT [facility]ORY [facility] RDW 12.9 11.5 - 14.5 % 07/02/2021 10:19 AM [employer] [facility] LABORATORY SERVICES - [facility] RDW-STDEV 49.0(H) 37.1 - 48.7 fL 07/02/2021 10:19 AM [facility] PLATELETS 202 140 - 350 K/uL 07/02/2021 10:19 AM [facility] MPV 10.5 9.3 - 12.4 fL 07/02/2021 10:19 AM [facility] - [facility] NEUTROPHILS 45 % 07/02/2021 10:19 AM [facility] LYMPHOCYTES 39 % 07/02/2021 10:19 AM [facility] MONOCYTES 10 % 07/02/2021 10:19 AM [facility] EOSINOPHILS 5 % 07/02/2021 10:19 AM [facility] BASOPHILS 1 % 07/02/2021 10:19 AM [facility] IMMATURE GRANULOCYTES 0 % 07/02/2021 10:19 AM [facility] - [facility] NEUTROPHIL ABSOLUTE 3.46 1.90 - 7.00 K/uL 07/02/2021 10:19 AM [facility] - [facility] LYMPHOCYTE ABSOLUTE 3.03 0.70 - 4.50 K/uL 07/02/2021 10:19 AM [facility] MONOCYTE ABSOLUTE 0.73 0.10 - 1.30 K/uL 07/02/2021 10:19 AM [facility] - [facility] EOSINOPHIL ABSOLUTE 0.40 0.00 - 0.70 K/uL 07/02/2021 10:19 AM [facility] - [facility] BASOPHILS ABSOLUTE 0.05 0.00 - 0.20 K/uL 07/02/2021 10:19 AM [facility] - [facility] IMMATURE GRANULOCYTES ABSOLUTE 0.03 0.00 - 0.03 K/uL 07/02/2021 10:19 AM 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
--- OUTSIDE RECORDS SUMMARY | 2024-10-30 02:31 | XMS_ITS | Encounter Summary ---
Author Organization [facility] Address [address] [place] [address] Care Team Providers Care Sql Database Developer Name Role Phone Anirudh Craft MD Primary Care Provider Reason for Visit * Reason Comments Follow Up Labs Encounter Details Date Type Department Care Team (Late st Contact Info) Description 07/02/2021 10:20 AM CDT Office Visit [facility] ONCOLOGY AND HEMATOLOGY - [place] [address] [facility] [address] [place] [phone] Kailyn Blood MD [address] [facility] [address] [place] [phone] Prostate cancer (Primary Dx) Social History [...] Sign Reading Time Taken Comments Blood Pressure 118/70 07/02/2021 10:14 AM CDT Pulse 52 07/02/2021 10:14 AM CDT Temperature 36.2 ??C (97.1 ??F) 07/02/2021 1 0:14 AM CDT Respiratory Rate 18 07/02/2021 10:1 4 AM CDT Oxygen Saturation 99% 07/02/2021 10: 14 AM CDT Inhaled Oxygen Concentration - - Weight 72.1 kg (158 lb 14.4 oz) 021 10:14 AM CDT Height 167.6 cm (5' 6 ) 07/02/2021 10:1 4 AM CDT Body Mass Index 25.65 07/02/2021 10:14 AM CDT documented in this encounter Progress Notes * Kailyn Blood MD - 07/02/2021 10:33 AM CDT Hematology Oncology Follow up DIAGNOSIS [...] Neuro: No obvious focal deficit LABS WBC 7.7 Hgb 13.5 plt 202 PSA <0.1 ASSESSMENT/PLAN 1. Prostate cancer. Tolerated treatment well. In remission. Continue Lupron today. 2. RLL nodule. Repeat CT showed significantly decreased RLL lung nodule indicating a benign etiology. Will monitor it closely. 3. 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 Will monitor. Patient will follow-up with me in 3 months. René Blood MD [facility] Oncology and Hematology [facility] documented in this encounter Plan of Treatment Upcoming Encounters Date Type Department Care Team (Late st Contact Info) Description 12/13/2024 9:45 AM ASTHMA EDUCATOR Office Visit [facility] Oncology and Hematology [facility] [address] [facility] [address] [place] [address] Glenn Al MD [address] [facility] [address] [place] [address] documented as of this encounter Visit Diagnoses Diagnosis Prostate cancer- Primary Malignant neoplasm of prostate documented in this encounter Care Teams Sql Database Developer Relationship Specialty Start Date End Date Anirudh Craft MD [address] [facility] [address] [place] [phone] PCP - General Internal Medicine 08/01/20 09/19/24 documented as of this encounter
--- OUTSIDE RECORDS SUMMARY | 2024-10-30 02:31 | XMS_ITS | Encounter Summary ---
Author Organization [facility] Address [address] [place] [address] Care Team Providers Care Molecular Biology Professor Name Role Phone Anirudh Craft MD Primary Care Provider Reason for Referral * Outpatient Services (Routine) - Closed Specialty Diagnoses / Procedures Referred By Cecile yan Referred To Contact Respiratory Therapy Diagnoses Chronic cough Procedures PULMONARY FUNCTION TEST Adia Hawk MD [address] [place] [address] [facility] Pulmonary Function [place] [facility] [address] [facility] [address] [place] [phone] Referral ID Status Reason Start Date Expiration Date V isits Requested Visits Authorized [id number] Closed [facility] CTS 03/04/2021 04/04/2022 1 1 Reason for Visit * Outpatient Services (Routine) - Closed Specialty Diagnoses / Procedures Referred By Cecile yan Referred To Contact Respiratory Therapy Diagnoses Chronic cough Procedures PULMONARY FUNCTION TEST Adia Hawk MD [address] [place] [address] [facility] Pulmonary Function [place] [facility] [address] [facility] [address] [place] [address] Referral ID Status Reason Start Date Expiration Date V isits Requested Visits Authorized [id number] Closed [facility] CTS 03/04/2021 04/04/2022 1 1 Encounter Details Date Type Department Care Team (Latest Contact Info) Description 03/18/2021 9:54 AM CDT - 03/18/2021 11:59 PM CDT Hospital Encounter [facility] Pulmonary Function Medical [place] [facility] [address] [facility] [address] [place] [address] Adia Hawk MD [address] [facility] [address] [place] [address] Discharge Disposition: Home or Self Care Social [...] have Coronavirus / COVID-19? No / Unsure 03/18/2021 9:52 AM CDT documented as of this encounter [...] 03/04/2021 06/23/2022 documented as of this encounter Procedure Notes * Salome Martinez, BAIL BOND AGENT - 03/18/2021 10:30 AM CDT PULMONARY FUNCTION LAB Use of Albuterol or Levalbuterol for Bronchodilation [facility] Orders are entered ???per protocol?? Respiratory Therapy Orders: PRIOR TO TESTING o Verify order from credentialed provider to administer albuterol or levalbuterol for the purpose of bronchodilatation during pulmonary function testing. If the order is in script form, the credentialed provider scans order and enters order into EHR. DURING TESTING o According to results of PFT testing prior to bronchodilator use, if the criterion below is met and the PFT order is for a full/complete PFT, the respiratory therapist enters order for albuterol or levalbuterol. CI=Confidence Interval 1. FEV1/FVC < 95% CI AND/OR 2. RV > 95% CI IN CASE OF RESPIRATORY DISTRESS (BRONCHOSPASM AND/OR ALLERGIC REACTION) o Place a 911 and ???Code Blue??? call. o Administer appropriate EPINEPHrine Auto Injector - See protocol for Emergency Use of EPINEPHrine Auto Injector. o When transfer is advisable, patient is transported to the emergency room. o Notify the patient???s primary provider. Medication Orders: Administer albuterol 0.5 ml (2.5 mg) /3 mLs NS via nebulization, inhalation times one dose. Levalbuterol may be substituted if patient has current valid provider order for levalbuterol. Administer levalbuterol 0.5 ml (1.25 mg)/3 mls NS via nebulization/inhalation times one dose. documented in this encounter Plan of Treatment Upcoming Encounters Date Type Department Care Team (Late st Contact Info) Description 12/13/2024 9:45 AM COAT FELLER Office Visit [facility] Oncology and Hematology - [place] [address] [facility] [address] [place] [address] Glenn Al MD [address] [facility] [address] [place] [address] documented as of this encounter Procedures Procedure Name Priority Date/Time Associated Diagnosis Comments PULMONARY FUNCTION TEST Routine 03/18/2021 10:20 AM CDT Chronic cough documented in this encounter Results * PULMONARY FUNCTION TEST (03/18/2021 10:20 AM CDT) 03/18/2021 10:2 0 AM CDT Narrative INTERFACE SYSTEM - 03/18/2021 7:36 PM CDT ?Pulmonary Function Report ? [facility] ? Test Date: ?03/18/2021 10:20 AM Pat Name: ? NABOR MCCAULEY ? Department: ?Room: ? Gender: ? M ?Coat Repair Inspector: ?? : ?[id number] ? Requested By: ADIA Murillo Order Number: [id number] ?Reading MD: ?? Willem Franco Interpretive Statements ? The patient is a 80 year old Male, height 65.4 in. and weight of 160 lbs. The indication for the pulmonary function test is Chronic cough. This is a technically adequate study meeting ATS quality guidelines. SPIROMETRY revealed a measured FVC of 4.31 Liters, 131 % of predicted. The measured FEV1 is 2.81 Liters, 114 % of predicted, the FEV1/FVC 65 %. Post bronchdilator, FVC is 4.18 Liters, a change of -3 %. FEV1 is 2.87 Liters, change of 2 %. FEV1/FVC ratio 69 %. The configuration of the flow-volume loop is normal. LUNG VOLUMES reveal a total lung capacity (TLC) of 5.65 Liters, 91 % pred. Residual volume (RV) is 1.34 Liters, 50 % of predicted, RV/TLC ratio is 24 %. AIRWAY RESISTANCE measurements demonstrate a pre BD airway resistance (RAW) of 1.59 cmH2O/L/sec, 107 % of reference, and specific conductance (sGAW) of 0.183 L/s/cmH2O/L, 85 % predicted. DIFFUSION CAPACITY for carbon monoxide (DLCO) is 21.3 mL/min/mmHg, 97 % pred. IMPRESSION: Normal pulmonary function testing for spirometry, flow volume loop analysis, total lung capacity, and diffusion capacity;. ??Prebronchodilator FVC is supra? normal; there is a moderate reduction in the residual volume of unclear physiological significance. Electronically Signed On 03-18-2021 19:36:04 CDT by Willem Franco Procedure Note Provider, Historical - 03/18/2021 [facility] [place] Test Date: 03/18/2021 10:20 AM Pat Name: NABOR MCCAULEY Department: Room: Gender: M Coat Repair Inspector: : 1940 Requested By: ADIA Murillo Order Number: [id number] Mayo MD: Willem Franco Interpretive Statements The patient is a 80 year old Male, height 65.4 in. and weightof 160 lbs. The indication for the pulmonary function test is Chroniccough. This is a technically adequate study meeting ATS quality guidelines. SPIROMETRY revealed a measured FVC of 4.31 Liters, 131 % of predicted. The measured FEV1 is 2.81 Liters, 114 % of predicted, the FEV1/FVC 65 %. Post bronchdilator, FVC is 4.18 Liters, a change of -3 %. FEV1 is 2.87 Liters, change of 2 %. FEV1/FVC ratio 69 %. The configuration of the flow-volume loop is normal. LUNG VOLUMES reveal a total lung capacity (TLC) of 5.65 Liters, 91 %pred. Residual volume (RV) is 1.34 Liters, 50 % of predicted, RV/TLC ratio is 24%. AIRWAY RESISTANCE measurements demonstrate a pre BD airway resistance(RAW) of 1.59 cmH2O/L/sec, 107 % of reference, and specific conductance (sGAW)of 0.183 L/s/cmH2O/L, 85 % predicted. DIFFUSION CAPACITY for carbon monoxide (DLCO) is 21.3 mL/min/mmHg, 97 %pred. IMPRESSION: Normal pulmonary function testing for spirometry, flow volume loopanalysis, total lung capacity, and diffusion capacity;. Prebronchodilator FVC is supra? normal; there is a moderate reduction in the residual volume ofunclear physiological significance. Electronically Signed On 03-18-2021 19:36:04 CDT by Willem Franco Adia Hawk MD PFT ORDERABLES INTERFACE SYSTEM Refer to clinic/hospital department documented in this encounter Visit Diagnoses Diagnosis Chronic cough Cough documented in this encounter Administered Medications Inactive Administered Medications - up to 3 most recent administrations Medication Order MAR Action Action Date Dose Rate Site albuterol (PROVENTIL,VENTOLIN) inhalation solution 2.5 mg 2.5 mg, Inhalation, ONE TIME ONLY RESPIRATORY, 1 dose, On 03/18/21 at 1130, Routine Given 03/18/2021 11:30 AM CDT 2.5 mg documented in this encounter Care Teams Molecular Biology Professor Relationship Specialty Start Date End Date Anirudh Craft MD [address] [phone] PCP - General Internal Medicine 08/01/20 09/19/24 documented as of this encounter
--- OUTSIDE RECORDS SUMMARY | 2024-10-30 02:31 | XMS_ITS | Encounter Summary ---
Author Organization [facility] Address [address] [facility] Attn: Epic Prelude ADT ESTHER WILSON [address] Care Team Providers Care Garage Door Technician Name Role Phone Anirudh Craft MD Primary Care Provider Encounter Details Date Type Department Care Team (Latest Contact Info) Description 03/18/2021 Travel Social History Tobacco Use Types Packs/Day [...] st Contact Info) Description 12/13/2024 9:45 AM SPRAY WORKER Office Visit [facility] Oncology and Hematology - [place] [address] [facility] [address] [place] [address] Glenn Al MD [address] [facility] [address] [place] [address] documented as of this encounter Visit Diagnoses Not on filedocumented in this encounter Care Teams Garage Door Technician Relationship Specialty Start Date End Date Anirudh Craft MD [address] [address] PCP - General Internal Medicine 08/01/20 09/19/24 documented as of this encounter
--- OUTSIDE RECORDS SUMMARY | 2024-10-30 02:31 | XMS_ITS | Encounter Summary ---
Author Organization [facility] Address [address] [place] [address] Care Team Providers Care Shared Services Manager Name Role Phone Anirudh Craft MD Primary Care Provider Reason for Visit * Reason Comments Follow Up Labs Encounter Details Date Type Department Care Team (Late st Contact Info) Description 03/27/2021 11:00 AM CDT Office Visit [facility] ONCOLOGY AND HEMATOLOGY - [place] [address] [facility] [facility] [address] [place] [phone] Kailyn Blood MD [address] [facility] [address] [place] [id number] Prostate cancer (Primary Dx) Social History [...] Reading Time Taken Comments Blood Pressure 120/70 03/27/2021 10:39 AM CDT Pulse 58 03/27/2021 10:39 AM CDT Temperature 36.2 ??C (97.2 ??F) 03/27/2021 10:39 AM C DT Respiratory Rate 16 03/27/2021 10:39 AM CDT Oxygen Saturation 99% 03/27/2021 10:39 AM CDT Inhaled Oxygen Concentration - - Weight 72.3 kg (159 lb 8 oz) 03/27/2021 10:39 AM CDT Height 167.6 cm (5' 6 ) 03/27/2021 10:39 AM CDT Body Mass Index 25.74 03/27/2021 10:39 AM CDT documented in this encounter Progress Notes * Kailyn Blood MD - 03/27/2021 10:45 AM CDT Hematology Oncology Follow up DIAGNOSIS Metastatic prostate cancer, Florin score 8, with right acetabulum met in 11/2019 Right lung nodule CURRENT TREATMENT Lupron TREATMENT HISTORY Casodex Xgeva SUBJECTIVE Patient returns today for reevaluation. The patient is doing well except for left upper arm pain. REVIEW OF SYSTEMS During the review of [...] Neuro: No obvious focal deficit LABS WBC 8.2 Hgb 13.6 plt 12 PSA <0.1 ASSESSMENT/PLAN 1. Prostate cancer. Tolerated treatment well. No recurrence. PSA undetectable. Continue Lupron today. 2. RLL nodule. Repeat CT showed significantly decreased RLL lung nodule indicating a benign etiology. Will monitor it closely. 3. 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 Will stop it now. 4. Will check left arm X-ray to r/o bone mets. Patient will follow-up with me in 3 months. René Blood MD [facility] Oncology and Hematology [facility] documented in this encounter Plan of Treatment Upcoming Encounters Date Type Department Care Team (Late st Contact Info) Description 12/13/2024 9:45 AM CLINICAL DATA SPECIALIST Office Visit [facility] Oncology and Hematology [facility] [address] [facility] [address] [place] [address] Glenn Al MD [address] [facility] [address] [place] [address] documented as of this encounter Results * XR HUMERUS 2+ VW LEFT (03/27/2021 11:21 AM CDT) Anatomical Region Laterality Modality Upper Extremity Computed Radiogr aphy 03/27/2021 11:2 1 AM CDT Impressions 03/27/2021 11:55 AM CDT IMPRESSION: No evidence of acute osseous injury. DICTATION LOCATION: Location 2 - [facility] Narrative 03/27/2021 11:55 AM CDT X-RAY LEFT HUMERUS, AP AND LATERAL VIEWS DATE: 03/27/2021 11:21 AM HISTORY: Prostate cancer. COMPARISON: None FINDINGS: ??No discrete lytic or blastic lesion is identified in the left humerus. No fracture defect is seen. The elbow and shoulder articulations are intact. Mild degenerative changes are noted. Procedure Note Jero Hall MD - 03/27/2021 X-RAY LEFT HUMERUS, AP AND LATERAL VIEWS DATE: 03/27/2021 11:21 AM HISTORY: Prostate cancer. COMPARISON: None FINDINGS: No discrete lytic or blastic lesion is identified in the left humerus. No fracture defect is seen. The elbow and shoulder articulations are intact. Mild degenerative changes are noted. IMPRESSION: No evidence of acute osseous injury. DICTATION LOCATION: [address] Kailyn Blood MD DIAGNOSTIC IM[facility] documented in this encounter Visit Diagnoses Diagnosis Prostate cancer- Primary Malignant neoplasm of prostate Prostate cancer Malignant neoplasm of prostate documented in this encounter Care Teams Shared Services Manager Relationship Specialty Start Date End Date Anirudh Craft MD [address] [facility] [address] [place] [phone] PCP - General Internal Medicine 08/01/20 09/19/24 documented as of this encounter
--- OUTSIDE RECORDS SUMMARY | 2024-10-30 02:31 | XMS_ITS | Encounter Summary ---
Author Organization [facility] Address [address] [place] [address] Care Team Providers Care Entry Level Management Name Role Phone Anirudh Craft MD Primary Care Provider [phone] Encounter Details Date Type Department Care Team (Latest Contact Info) Description 03/27/2021 9:55 AM CDT - 03/27/2021 11:59 PM CDT Hospital Encounter [facility] Laboratory Services [facility] [address] [place] [address] Kailyn Blood MD [address] [facility] [address] [place] [address] Discharge Disposition: Home or Self [...] Contact Info) Description 12/13/2024 9:45 AM MANAGER SHOP Office Visit [facility] Oncology and Hematology [facility] [address] [facility] [address] [place] [address] Glenn Al MD [address] [facility] [address] [place] [address] documented as of this encounter Procedures Procedure Name Priority Date/Time Associated Diagnosis Comments CBC WITH DIFFERENTIAL Routine 03/27/2021 9:59 AM CDT Prostate cancer PSA Routine 03/27/2021 9:59 AM CDT Prostate cancer COMPREHENSIVE METABOLIC PANEL Routine 03/27/2021 9:59 AM CDT Prostate cancer documented in this encounter Results * PSA (03/27/2021 9:59 AM CDT) PSA <0.1 <4.0 ng/mL 03/27/2021 10:51 AM CDT [facility] Blood Venipuncture / Unknown 03/27/2021 9:59 AM CDT 03/27/2021 10:09 AM CDT Narrative [facility] - 03/27/2021 10:51 AM CDT The concentration of PSA in a given specimen, as determined by assays from different manufacturers, can vary because of differences in assay methods and reagent specificity. Values obtained with different assay methods cannot be used interchangeably. The testing method in use is the WILLIAM Electrochemiluminescence Immunoassay. Kailyn Blood MD CHEMISTRY ORDERABLES [facility] - [facility] KIM# [id number] 5 [facility] [place] [address] * (ABNORMAL) COMPREHENSIVE METABOLIC PANEL (03/27/2021 9:59 AM CDT) SODIUM 140 136 - 145 mmol/L 03/27/2021 10:46 AM CDT [facility] POTASSIUM 4.7 3.5 - 5.0 mmol/L 03/27/2021 10:46 AM CDT [facility] CHLORIDE 106 98 - 107 mmol/L 03/27/2021 10:46 AM CDT [facility] CO2 27 22 - 29 mmol/L 03/27/2021 10:46 AM T [facility] CALCIUM 9.1 8.6 - 10.2 mg/dL 03/27/2021 10:46 AM T [facility] BUN 17 8 - 23 mg/dL 03/27/2021 10:46 AM T [facility] CREATININE 0.74 0.67 - 1.17 mg/dL 03/27/2021 10:46 AM T [facility] Comment:The GFR result is no t clinically significant on patients <18 or >70 years of age. GLUCOSE 99 74 - 99 mg/dL 03/27/2021 10:46 AM T [facility] TOTAL PROTEIN 6.9 6.7 - 8.6 g/dL 03/27/2021 10:46 AM CDT [facility] ALBUMIN 4.4 3.5 - 5.2 g/dL 03/27/2021 10:46 AM CDT [facility] BILIRUBIN TOTAL 0.3 0.2 - 1.1 mg/dL 03/27/2021 10:46 AM T [facility] ALKALINE PHOSPHATASE 57 40 - 129 U/L 03/27/2021 10:46 AM CDT [facility] AST 23 <41 U/L 03/27/2021 10:46 AM CDT [facility] ALT 16 <42 U/L 03/27/2021 10:46 AM [facility] GFR >60 mL/min/1.7 3 sq meter 03/27/2021 10:46 AM [facility] Comment: eGFR has not been validated [...] result. GFR, >60 mL/min/1.7 3 sq meter 03/27/2021 10:46 AM [facility] ANION GAP 7(L) 8 - 16 mmol/L 03/27/2021 10:46 AM [facility] Blood Venipuncture / Unknown 03/27/2021 9:59 AM CDT 03/27/2021 10:09 AM CDT Narrative [facility] - 03/27/2021 10:46 AM CDT Samples containing indocyanine green cause interferences on Total and/or Direct Bilirubin and must not be measured. Kailyn Blood MD CHEMISTRY ORDERABLES [facility]# [id number] 5 [facility] [place] [id number] * (ABNORMAL) CBC WITH DIFFERENTIAL (03/27/2021 9:59 AM CDT) WBC 8.2 4.0 - 9.8 K/uL 03/27/2021 10:06 AM T [facility] RBC 4.18(L) 4.50 - 5.40 M/uL 03/27/2021 10:06 AM [facility] [employer] [facility] HEMOGLOBIN 13.6 13.6 - 16.5 g/dL 03/27/2021 10:06 AM [facility] HEMATOCRIT 41.9 40.0 - 48.0 % 03/27/2021 10:06 AM [facility] MCV 100.2(H) 82.0 - 99.0 fL 03/27/2021 10:06 AM [facility] MCH 32.5 27.2 - 32.6 pg 03/27/2021 10:06 AM [facility] MCHC 32.5 31.5 - 35.5 g/dL 03/27/2021 10:06 AM [facility] RDW 13.0 11.5 - 14.5 % 03/27/2021 10:06 AM [facility] RDW-STDEV 47.8 37.1 - 48.7 fL 03/27/2021 10:06 AM [facility] PLATELETS 212 140 - 350 K/uL 03/27/2021 10:06 AM [facility] MPV 10.5 9.3 - 12.4 fL 03/27/2021 10:06 AM [facility] NEUTROPHILS 54 % 03/27/2021 10:06 AM [employer] LYMPHOCYTES 32 % 03/27/2021 10:06 AM [facility] MONOCYTES 9 % 03/27/2021 10:06 AM [employer] EOSINOPHILS 4 % 03/27/2021 10:06 AM [employer] BASOPHILS 1 % 03/27/2021 10:06 AM [facility] IMMATURE GRANULOCYTES 0 % 03/27/2021 10:06 AM CDT [facility] NEUTROPHIL ABSOLUTE 4.43 1.90 - 7.00 K/uL 03/27/2021 10:06 AM [facility] LYMPHOCYTE ABSOLUTE 2.64 0.70 - 4.50 K/uL 03/27/2021 10:06 AM [facility] MONOCYTE ABSOLUTE 0.76 0.10 - 1.30 K/uL 03/27/2021 10:06 AM CDT [facility] - [facility] EOSINOPHIL ABSOLUTE 0.32 0.00 - 0.70 K/uL 03/27/2021 10:06 AM CDT [facility] BASOPHILS ABSOLUTE 0.05 0.00 - 0.20 K/uL 03/27/2021 10:06 AM CDT [facility] IMMATURE GRANULOCYTES ABSOLUTE 0.03 0.00 - 0.03 K/uL 03/27/2021 10:06 AM CDT [facility] LABORATORY SERVICES - . [facility] Blood Venipuncture / Unknown 03/27/2021 9:59 AM CDT 03/27/2021 10:04 AM CDT Kailyn Blood MD HEMATOLOGY ORDERABLE S [facility]AT[facility] SERVICES - [facility]# [id number] [address] [place] [address] documented in this encounter Visit Diagnoses Diagnosis Prostate cancer Malignant neoplasm of prostate documented in this encounter Care Teams Entry Level Management Relationship Specialty Start Date End Date Anirudh Craft MD [address] [phone] PCP - General Internal Medicine 08/01/20 09/19/24 documented as of this encounter
--- OUTSIDE RECORDS SUMMARY | 2024-10-30 02:31 | XMS_ITS | Encounter Summary ---
Author Organization [facility] Address [address] [facility] Attn: Epic Prelude ADT [place] [address] Care Team Providers Care Supervisor Coke Handling Name Role Phone Anirudh Craft MD Primary Care Provider Encounter Details Date Type Department Care Team (Latest Contact Info) Description 03/27/2021 Travel Social History Tobacco Use Types Packs/Day [...] st Contact Info) Description 12/13/2024 9:45 AM REFRIGERATION PERSON Office Visit [facility] Oncology and Hematology - [place] [address] [facility] [address] [place] [address] Glenn Al MD [address] [facility] [address] [place] [address] documented as of this encounter Visit Diagnoses Not on filedocumented in this encounter Care Teams Supervisor Coke Handling Relationship Specialty Start Date End Date Anirudh Craft MD [address] [address] PCP - General Internal Medicine 08/01/20 09/19/24 documented as of this encounter
--- OUTSIDE RECORDS SUMMARY | 2024-10-30 02:31 | XMS_ITS | Encounter Summary ---
Author Organization [employer] Address [address] [place] [address] Care Team Providers Care Manager Oracle Name Role Phone Anirudh Craft MD Primary Care Provider Reason for Visit * Tx/Med Therapy Plan Auth (Routine) - Closed Specialty Diagnoses / Procedures Referred By Cecile t Referred To Contact Diagnoses Prostate cancer Cancer, metastatic to bone Procedures NE LEUPROLIDE ACETATE SUSPNSION Kailyn Cat MD [address] [place] [address] [facility] [address] [place] [address] Referral ID Status Reason Start Date Expiration Date Visits Re quested Visits Authorized [id number] Closed 12/12/2020 12/24/2022 99 99 Encounter Details Date Type Department Care Team (Latest Contact Info) Description 07/02/2021 10:30 AM CDT - 07/02/2021 11:59 PM CDT Hospital Encounter [facility]fusion [facility] [address] [place] [address] Kailyn Blood MD [address] [place], [place] [id number] Infusion [facility] Discharge Disposition: Home or Self Care Social [...] Progress Notes * Gt Long RN - 07/02/2021 10:49 AM CDT Pt admitted to infusion center [...] st Contact Info) Description 12/13/2024 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 Office Visit [facility] Oncology and Hematology - [place] [address] [place] [address] Glenn Al MD [address] [facility] [address] [place] [address] documented as of this encounter [...] subCUT, ONE TIME ONLY, 1 dose, On Thu07/02/21 at 1045, Routine Given 07/02/2021 10:44 AM CDT 22.5 mg Hip, Right documented in this encounter Care Teams Manager Oracle Relationship Specialty Start Date End Date Anirudh Craft MD [address] [phone] PCP - General Internal Medicine 08/01/20 09/19/24 documented as of this encounter
--- OUTSIDE RECORDS SUMMARY | 2024-10-30 02:31 | XMS_ITS | Encounter Summary ---
Author Organization [facility] Address [address] [place] [address] Care Team Providers Care Catering Coordinator Name Role Phone Anirudh Craft MD Primary Care Provider Reason for Referral * Outpatient Services (Routine) - Closed Specialty Diagnoses / Procedures Referred By Cecile yan Referred To Contact Respiratory Therapy Diagnoses Chronic cough Procedures EXHALED NITRIC OXIDE/FENO Adia Hawk MD [address] [place] [address] [facility] Pul[facility] Function [place] [facility] [address] [facility] [address] [place] [phone] Referral ID Status Reason Start Date Expiration Date V isits Requested Visits Authorized [id number] Closed [facility] CTS 03/04/2021 04/04/2022 1 1 * Outpatient Services (Routine) - Closed Specialty Diagnoses / Procedures Referred By Cecile yan Referred To Contact Respiratory Therapy Diagnoses Chronic cough Procedures PULMONARY FUNCTION TEST Adia Hawk MD [address] [place] [address] [facility] Pulmonary Function [place] [facility] [address] [facility] [address] [place] [address] Referral ID Status Reason Start Date Expiration Date V isits Requested Visits Authorized [id number] Closed [facility] CTS 03/04/2021 04/04/2022 1 1 Reason for Visit * Reason Comments Shortness of Breath Encounter Details Date Type Department Care Team (Late st Contact Info) Description 03/04/2021 10:15 AM CDT Office Visit [facility] Pulmonology [facility] [address] [place] [address] Adia Hawk MD [address] [place] [address] Chronic cough (Primary Dx); Lung nodules; Prostate cancer metastatic to bone; Seasonal allergic rhinitis, unspecified trigger Social History Tobacco Use Types Packs/Day Years [...] have Coronavirus / COVID-19? No / Unsure 03/04/2021 9:50 AM CDT documented as of this encounter Last Filed Vital Signs Vital Sign Reading Time Taken Comments Blood Pressure 106/58 03/04/2021 10:29 AM CDT Pulse 58 03/04/2021 10:29 AM CDT Temperature - - Respiratory Rate 16 03/04/2021 10:29 AM CDT Oxygen Saturation 98% 03/04/2021 10:29 AM CDT ra Inhaled Oxygen Concentration - - Weight 72.8 kg (160 lb 9.6 oz) 03/04/2021 10:29 AM CDT Height 167.6 cm (5' 6 ) 03/04/2021 10:29 AM CDT Body Mass Index 25.92 03/04/2021 10:29 AM CDT documented in this encounter Progress Notes * Adia Hawk MD - 03/04/2021 10:29 AM CDT Pulmonary Initial Outpatient Evaluation 03/05/2021 9:30 AM Patient Name: Nabor Mccauley 1940 Primary Care Physician: Anirudh Craft MD Date of Service: 03/05/2021 Chief Complaint Patient presents with ??? Chronic cough Impression: 1. Chronic cough with recent worsening, clinically suspicious for an underlying reactive airways disease process such as bronchial asthma 2. Bilateral lung nodules 3. Seasonal allergic rhinitis 4. Metastatic prostate cancer 5. History of tobacco use Recommendations: 1. Reviewed his recent clinical course and discussed the implications of a chronic cough at length,shall obtain complete pulmonary function testing to establish his underlying pulmonary physiology in conjunction with an exhaled nitric oxide level to evaluate for ongoing eosinophilic airways inflammation 2. For now, initiate a rescue albuterol as needed 3. Obtain a chest x-ray today to ensure the absence of pulmonary infiltrates 4. Reviewed his sequential CT imaging most recently in June 2020 that demonstrates an interval size reduction in the right lower lobe lung nodule, follow-up CT imaging is anticipated per oncology HPI: Patient is a 80 y.o. male who is seen in consultation for a chronic cough that has intermittently worsened over the last 1 year. Notably, he initially reports a paroxysmal cough since the age of6 years, but which has waxed and waned over time without any significant associated expectoration, fever, chills, chest pain, hemoptysis, dyspnea or wheeze. Interestingly, he denies any established diagnosis of bronchial asthma and does not appear to have ever had a diagnostic work-up for his coughpreviously. More recently, he reports 2 episodes of an acute worsening of his cough accompanied by dyspnea and periodic wheezing, with the most recent episode being in December 2020; both these episodes demonstrated eventual spontaneous resolution although he never really sought medical attention for the same.He has an underlying diagnosis of metastatic prostate cancer for which he remains on parenteral Lupron every 3 months, and also has a history of bilateral lung nodules although most recent CT imagingdemonstrated a reduction in their size especially in the right lower lobe. 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 He endorses seasonal environmental allergies and has 1 pet household cat. He does have a family history of bronchial asthma in his mother. He smoked 1-1/2 packs of cigarettes a day for approximately6 years before he quit smoking in 1959. Past Medical History: Diagnosis Date ??? Allergic rhinitis ??? BPH (benign prostatic hyperplasia) ??? Calculus of kidney currently found through cat scan ??? Cancer ??? Community acquired pneumonia ??? Erectile dysfunction ??? Family history of prostate cancer m gf ??? HTN (hypertension) 2009 ??? Hyperlipidemia diet controlled ??? Personal history of prostate cancer 06/13 s/p removal ??? Renal artery stenosis 06/12 mild on R Past Surgical History: Procedure Laterality Date ??? BIOPSY PROSTATE 06/13 cancer ??? CHG ANES COLONOSCOPY,BIOPSY 2007 polyps ??? CHG ANES COLONOSCOPY,BIOPSY 09/12 wnl, no polyps. tics ??? HOLTER MONITOR wnl ??? HX APPENDECTOMY age 14 ??? HX HEART CATHETERIZATION ??? AL LAP,LYMPHATIC SYSTEM,OTHER PROC 07/20/2012 LYMPH NODE DISSECTION DAVINCI SI LAPAROSCOPIC performed by Giancarlo Azar MD at [facility] OR [facility] ??? AL LAP,PROSTATECTOMY,RADICAL,W/NERVE SPARE,INCL ROBOTIC 07/20/2012 PROSTATECTOMY RADICAL DAVINCI SI LAPAROSCOPIC performed by Giancarlo Azar MD at [facility] OR [facility] ??? STRESS ECHO W CONTRAST 06/12 wnl ??? US RENAL + DOPPLER 06/12 R renal art stenosis L ok Family History Problem Relation Name Age of Onset ??? Unknown Father ??? Hypertension Mother ??? Stroke Mother ??? Heart Disease Maternal Grandmother ??? Cancer Maternal Grandfather prostate Social History Socioeconomic History ??? Marital status: Spouse name: Not on file ??? Number of children: Not on file ??? Years of education: Not on file ??? Highest education level: Not on file Occupational History Employer: [employer] Tobacco Use ??? Smoking status: Former Smoker Quit date: 11/02/1967 Years since quittin.3 ??? Smokeless tobacco: Never Used Vaping Use ??? Vaping Use: Never used Substance and Sexual Activity ??? Alcohol use: No ??? Drug use: No ??? Sexual activity: Yes Other Topics Concern ??? Not on file Social History Narrative ??? Not on file Social Determinants of Health Financial Resource Strain: ??? Difficulty of Paying Living Expenses: Food Insecurity: ??? Worried About Running Out of Food in the Last Year: ??? Ran Out of Food in the Last Year: Transportation Needs: ??? Lack of Transportation (Medical): ??? Lack of Transportation (Non-Medical): Physical Activity: ??? Days of Exercise per Week: ??? Minutes of Exercise per Session: Stress: ??? Feeling of Stress : Social Connections: ??? Frequency of Communication with Friends and Family: ??? Frequency of Social Gatherings with Friends and Family: ??? Attends Orthodoxy Services: ??? Active Member of Clubs or Organizations: ??? Attends Club or Organization Meetings: ??? Marital Status: Intimate Partner Violence: ??? Fear of Current or Ex-Partner: ??? Emotionally Abused: ??? Physically Abused: ??? Sexually Abused: Current Medications: Current Outpatient Medications Medication Sig Dispense Refill ??? albuterol HFA 90 mcg inhaler Take 2 Puffs by inhalation every 4 hours as needed for Shortness of Breath or Wheezing. 8.5 Gram 3 ??? coenzyme Q10 100 mg Capsule Take 100 mg by mouth. ??? rosuvastatin (CRESTOR) 20 mg tablet Take 10 mg by mouth daily at bedtime. 10MG NOW PER PT ??? amLODIPine (NORVASC) 5 mg tablet Take 5 mg by mouth daily. No current facility-administered medications for this visit. Medication Allergies: Allergies Allergen Reactions ??? Codeine Nausea and Vomiting Makes patient extremely ill ??? Nebivolol Bradycardia He is not a tobacco user. PHYSICAL EXAMINATION BP 106/58 Pulse (!) 58 Resp 16 Ht 5' 6 (1.676 m) Wt 72.8 kg (160 lb 9.6 oz) SpO2 98% Comment: ra BMI 25.92 kg/m?? General: Alert and stable, appears in no acute distress. HEENT: Normocephalic and atraumatic. Nasal mucosa is normal with no erythema or exudate. Neck: Supple, trachea midline, no adenopathy, thyroid normal. No jugular venous distension. Lungs: Bilateral equal and clear breath sounds to auscultation. No crackles or wheeze. Heart: Heart sounds are normal and regular. No audible murmurs. Extremities: No cyanosis, clubbing or edema Lymph Nodes: Cervical, supraclavicular nodes normal. Neurologic: Non focal. IMAGING: Results for orders placed or performed during [...] right midlung. DICTATION LOCATION: Location 1 - [facility] Results for orders placed or performed during the hospital encounter of 06/19/20 CT [...] The visualized bony structures are intact. Impression IMPRESSION: 1. The right lower lobe pulmonary nodule has markedly decreased in size. 2. Other 2 tiny pulmonary nodules in the right middle lobe and left lower lobe. 3. The ascending thoracic aortic aneurysm. DICTATION LOCATION: Location 4 Cardiac: Results for orders placed or performed during the hospital encounter of 06/23/11 ECHO STRESS TEST EXERCISE Narrative [facility] [place] [address] [place] [address] [email or web address] Stress Echocardiography Shaan protocol Patient: Nabor Mccauley Study ID: ECHO STRESS TEST Gender: M : 1940 Age: 70 Race: CAU Height Study Date: 06/23/2011 Weight: Access. #: [id number] BP: *Referring Physician:* Eleazar Mishra Anthony, M.D. *Ordering Physician:* Eleazar Mishra Communications Intern: Procedure data: Consent: The risks, benefits, and alternatives to the procedure were explained to the patient and informed consent was obtained. Procedure information: Initial setup. A baseline ECG was recorded. Surface ECG leads and automatic cuff blood pressure measurements were monitored. Transthoracic stress echocardiography. Image quality was good. Images were captured at baseline and peak exercise. Intravenous contrast (Definity) was administered. Study completion: There were no complications. Shaan protocol. Stress echocardiography. Study Conclusions: Summary: - Procedure narrative: Transthoracic stress echocardiography. Image quality was good. Images were captured at baseline and peak exercise. Intravenous contrast (Definity) was administered. - Stress: Functional capacity was normal. - Stress ECG conclusions: The stress ECG was negative for ischemia. - Stress echo: There was no echocardiographic evidence for stress-induced ischemia. - Baseline: LV global systolic function was normal. Impressions: Normal study. Normal study after maximal exercise. Cardiac Anatomy: Stress protocol: - Baseline HR: 89bpm BP: 150/85 ST/T: normal NSR, no ectopy Symptoms: none - Peak stress HR: 152bpm BP: 210/80 ST/T: normal NSR, no ectopy Symptoms: none - Recovery HR: 115bpm BP: 135/75 ST/T: normal NSR, no ectopy Symptoms: none Stress results: Maximal heart rate during stress was 152bpm (101% of maximal predicted heart rate). The heart rate response to stress was normal. There was resting hypertension with a hypertensive response to stress. The patient experienced no chest pain during stress. Functional capacity was normal. Treadmill exercise testing was performed using the Shaan protocol. The patient exercised for 7 min, to a maximal work rate of 10.1mets. Exercise was terminated due to achievement of target heart rate. Stress ECG: There were no stress arrhythmias or conduction abnormalities. The stress ECG was negative for ischemia. Baseline: LV size was normal. LV global systolic function was normal. Normal wall motion; no LV regional wall motion abnormalities. Peak stress: LV size was reduced. LV global systolic function was augmented. Normal wall motion; no LV regional wall motion abnormalities. Stress echo results: There was no echocardiographic evidence for stress-induced ischemia. Prepared and Electronically Authenticated [facility] [place] [id number] Problem List Patient Active Problem List Diagnosis Date Noted ??? Cancer, metastatic to bone 01/17/2020 ??? Prostate cancer 12/14/2019 ??? 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 Essential hypertension ??? Leukocytosis 11/26/2015 ??? Fever 11/26/2015 ??? ARF (acute renal failure) 11/26/2015 ??? Hyponatremia 11/26/2015 ??? Severe sepsis 11/26/2015 ??? E-coli UTI 11/26/2015 ??? Anemia, chronic disease 11/26/2015 ??? Complicated UTI (urinary tract infection) ??? Personal history of prostate cancer Overview Note: s/p removal ??? Elevated PSA Overview Note: s/p bx - cancer ??? Family history of prostate cancer Overview Note: m gf ??? Renal artery stenosis 07/14/2011 Overview Note: 06/12 - mild on R ??? HTN (hypertension) ??? BPH (benign prostatic hyperplasia) 09/07/2009 ??? Erectile dysfunction 09/07/2009 ??? Hyperlipidemia 09/07/2009 ??? Special screening for malignant neoplasm of prostate 09/07/2009 ??? Malaise and fatigue 09/07/2009 ??? Special screening for malignant neoplasms, colon 09/07/2009 ??? Allergic rhinitis 09/07/2009 I have personally reviewed all applicable data including labs, imaging studies, PFTs as well as sleep data where applicable, including individual tracings and waveforms. Please do not hesitate to contact me with any clarifications or questions. 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 [facility] ? Test Date: ?03/18/2021 10:20 AM Pat Name: ? NABOR MCCAULEY ? Department: ?Room: ? Gender: ? M ?Advisory Services Associate: ?? : ?1940 ? Requested By: ADIA Murillo Order Number: [id number] ?Reading MD: ?? Willem Franco Interpretive Statements [...] Provider, Historical - 03/18/2021 Pulmonary Function Report [facility] Test Date: 03/18/2021 10:20 AM Pat Name: NABOR MCCAULEY Department: Room: Gender: Advisory Services Associate: : 1940 Requested By: ADIA Murillo Order Number: [id number] Mayo MD: Willem Franco Interpretive Statements The [...] Willem Franco Adia Hawk MD PFT ORDERABLES Performing Organization Address City/State/[facility] Co de Phone Number INTERFACE SYSTEM Refer to clinic/hospital department * XR CHEST PA AND LATERAL 2 VW (03/04/2021 11:55 AM CDT) Anatomical Region Laterality Modality Chest Computed Radiogr aphy 03/04/2021 11:5 5 AM CDT Impressions 03/04/2021 11:59 AM CDT IMPRESSION: 1. Mild linear atelectasis or scarring in the right midlung. DICTATION LOCATION: Location 1 - [facility] 03/04/2021 11:59 AM CDT EXAMINATION: ??CHEST 2 VIEWS DATE: 03/04/2021 11:55 AM HISTORY: Cough. COMPARISON: ??11/26/2015 FINDINGS: There is mild linear atelectasis or scarring in the right midlung. No focal lung consolidation, pneumothorax or pleural effusion. The cardiomediastinal silhouette is normal. Procedure Note Justo Florian MD - 03/04/2021 EXAMINATION: CHEST 2 VIEWS DATE: 03/04/2021 11:55 AM HISTORY: Cough. COMPARISON: 11/26/2015 FINDINGS: There is mild linear atelectasis or scarring in the right midlung. No focal lung consolidation, pneumothorax or pleural effusion. The cardiomediastinal silhouette is normal. IMPRESSION: 1. Mild linear atelectasis or scarring in the right midlung. DICTATION LOCATION: Location 1 - [facility] Adia Hawk MD DIAGNOSTIC IMAGING O RDERABLES documented in this encounter Visit Diagnoses Diagnosis Chronic cough- Primary Cough Lung nodules Other nonspecific abnormal finding of lung field Prostate cancer metastatic to bone Seasonal allergic rhinitis, unspecified trigger Chronic cough Cough Chronic cough Cough documented in this encounter Care Teams Catering Coordinator Relationship Specialty Start Date End Date Anirudh Craft MD [address] [id number] PCP - General Internal Medicine 08/01/20 09/19/24 documented as of this encounter
--- OUTSIDE RECORDS SUMMARY | 2024-10-30 02:31 | XMS_ITS | Encounter Summary ---
Author Organization [facility] Address 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 Office Visit [facility] Oncology and Hematology - [place] [address] [facility] [address] [place] [address] Glenn Al MD [address] [facility] [address] [place] [address] documented as of this encounter Procedures Procedure Name Priority Date/Time Associated Diagnosis Comments XR HUMERUS 2+ VW LEFT Stat 03/27/2021 11:21 AM CDT Prostate cancer documented in this encounter Results * XR HUMERUS 2+ VW LEFT (03/27/2021 11:21 AM CDT) Anatomical Region Laterality Modality Upper Extremity Computed Radiogr aphy 03/27/2021 11:2 1 AM CDT Impressions 03/27/2021 11:55 AM CDT IMPRESSION: No evidence of acute osseous injury. DICTATION LOCATION: Location 2 - [facility] Narrative 03/27/2021 11:55 AM CDT X-RAY LEFT [...] of acute osseous injury. DICTATION LOCATION: Location - [facility] Kailyn Blood MD DIAGNOSTIC IMAGING O RDERABLES documented in this encounter Visit Diagnoses Diagnosis Prostate cancer Malignant neoplasm of prostate documented in this encounter Care Teams On Site Soil Evaluator Relationship Specialty Start Date End Date Anirudh Craft MD [address] [address] PCP - General Internal Medicine 08/01/20 09/19/24 documented as of this encounter
--- OUTSIDE RECORDS SUMMARY | 2024-10-30 02:31 | XMS_ITS | Encounter Summary ---
Author Organization [facility] Address [address] [place] [address] Care Team Providers Care Revenue Integrity Analyst Name Role Phone Anirudh Craft MD Primary Care Provider Encounter Details Date Type Department Care Team (Latest Contact Info) Description 12/26/2020 9:54 AM HAULAGE ENGINE OPERATOR - 12/26/2020 11:59 PM HAULAGE ENGINE OPERATOR Hospital Encounter [facility] Laboratory Services [facility] [address] [place] [address] Kailyn Blood MD [address] [facility] [address] [place] [address] Discharge Disposition: Home or Self [...] have Coronavirus / COVID-19? No / Unsure 12/26/2020 9:52 AM HAULAGE ENGINE OPERATOR documented as of this encounter Medications [...] st Contact Info) Description 12/13/2024 9:45 AM HAULAGE ENGINE OPERATOR Office Visit [facility] Oncology and Hematology [facility] [address] [place] [address] Glenn Al MD [address] [facility] [address] [place] [address] documented as of this encounter Procedures Procedure Name Priority Date/Time Associated Diagnosis Comments CBC WITH DIFFERENTIAL Routine 12/26/2020 10:08 AM HAULAGE ENGINE OPERATOR Prostate cancer PSA Routine 12/26/2020 10:08 AM HAULAGE ENGINE OPERATOR Prostate cancer COMPREHENSIVE METABOLIC PANEL Routine 12/26/2020 10:08 AM HAULAGE ENGINE OPERATOR Prostate cancer documented in this encounter Results * PSA (12/26/2020 10:08 AM HAULAGE ENGINE OPERATOR) PSA <0.1 <4.0 ng/mL 12/26/2020 11:03 AM HAULAGE ENGINE OPERATOR [facility] Blood Venipuncture / Unknown 12/26/2020 10:08 AM HAULAGE ENGINE OPERATOR 12/26/2020 10:21 AM HAULAGE ENGINE OPERATOR Narrative [facility] - 12/26/2020 11:03 AM HAULAGE ENGINE OPERATOR The concentration of PSA in a given specimen, as determined by assays from different manufacturers, can vary because of differences in assay methods and reagent specificity. Values obtained with different assay methods cannot be used interchangeably. The testing method in use is the WILLIAM Electrochemiluminescence Immunoassay. Kailyn Blood MD CHEMISTRY ORDERABLES [facility] CLIA# [id number] [facility] SKenny [facility] [place] [address] * COMPREHENSIVE METABOLIC PANEL (12/26/2020 10:08 AM HAULAGE ENGINE OPERATOR) Pathologist [facility] SODIUM 142 136 - 145 mmol/L 12/26/2020 10:57 AM [employer] LABORATORY SERVICES - . [facility] POTASSIUM 4.0 3.5 - 5.0 mmol/L 12/26/2020 10:57 AM [employer] LABORATORY SERVICES - [facility] CHLORIDE 106 98 - 107 mmol/L 12/26/2020 10:57 AM [employer] LAB[facility]ATORY SERVICES - [facility] CO2 25 22 - 29 mmol/L 12/26/2020 10:57 AM [employer] [facility]ORATORY SERVICES - [facility] CALCIUM 9.2 8.6 - 10.2 mg/dL 12/26/2020 10:57 AM [employer] LABORATORY SERVICES - [facility] BUN 19 8 - 23 mg/dL 12/26/2020 10:57 AM [employer] LABORATORY SERVICES - . [facility] CREATININE 0.68 0.67 - 1.17 mg/dL 12/26/2020 10:57 AM [employer] LABORATORY SERVICES - [facility] Comment:The GFR result is no t clinically significant on patients <18 or >70 years of age. GLUCOSE 97 74 - 99 mg/dL 12/26/2020 10:57 AM [employer] LABORATORY SERVICES - [facility] TOTAL PROTEIN 7.3 6.7 - 8.6 g/dL 12/26/2020 10:57 AM [employer] LABORATORY SERVICES - . [facility] ALBUMIN 4.8 3.5 - 5.2 g/dL 12/26/2020 10:57 AM [employer] LABORATORY SERVICES - [facility] BILIRUBIN TOTAL 0.3 0.2 - 1.1 mg/dL 12/26/2020 10:57 AM [employer] LABORATORY SERVICES - . [facility] ALKALINE PHOSPHATASE 60 40 - 129 U/L 12/26/2020 10:57 AM [employer] LABORATORY SERVICES - . [facility] AST 27 <41 U/L 12/26/2020 10:57 AM [employer] LABORATORY SERVICES - . [facility] ALT 19 <42 U/L 12/26/2020 10:57 AM [employer] LABORATORY SERVICES - [facility] GFR >60 mL/min/1.7 3 sq meter 12/26/2020 10:57 AM [employer] LABORATORY SERVICES - [facility] Comment: eGFR has not been validated [...] result. GFR, >60 mL/min/1.7 3 sq meter 12/26/2020 10:57 AM [facility] [employer] [facility] ANION GAP 11 8 - 16 mmol/L 12/26/2020 10:57 AM [facility] [employer] [facility] Blood Venipuncture / Unknown 12/26/2020 10:08 AM HAULAGE ENGINE OPERATOR 12/26/2020 10:21 AM [facility] [employer] [facility] - 12/26/2020 10:57 AM [facility] Samples containing indocyanine green cause interferences on Total and/or Direct Bilirubin and must not be measured. Kailyn Blood MD CHEMISTRY ORDERABLES [facility] [employer] [facility]# [id number] [address] [facility] [place] [address] * (ABNORMAL) CBC WITH DIFFERENTIAL (12/26/2020 10:08 AM HAULAGE ENGINE OPERATOR) WBC 9.2 4.0 - 9.8 K/uL 12/26/2020 10:20 AM [facility] [employer] [facility] RBC 4.31(L) 4.50 - 5.40 M/uL 12/26/2020 10:20 AM [facility] [employer] [facility] HEMOGLOBIN 14.4 13.6 - 16.5 g/dL 12/26/2020 10:20 AM [facility] [employer] [facility] HEMATOCRIT 42.7 40.0 - 48.0 % 12/26/2020 10:20 AM [facility] [employer] [facility] MCV 99.1(H) 82.0 - 99.0 fL 12/26/2020 10:20 AM [employer] LABORATORY SERVICES - [facility] MCH 33.4(H) 27.2 - 32.6 pg 12/26/2020 10:20 AM [employer] [facility] MCHC 33.7 31.5 - 35.5 g/dL 12/26/2020 10:20 AM [employer] [facility]ATORY SERVICES - . [facility] RDW 13.0 11.5 - 14.5 % 12/26/2020 10:20 AM [employer] [facility]ORY [facility] - [facility] RDW-STDEV 47.4 37.1 - 48.7 fL 12/26/2020 10:20 AM [employer] LABORATORY SERVICES - [facility] PLATELETS 222 140 - 350 K/uL 12/26/2020 10:20 AM [employer] LABORATORY SERVICES - [facility] MPV 10.6 9.3 - 12.4 fL 12/26/2020 10:20 AM [employer] [facility]ORY [facility] - . [facility] NEUTROPHILS 46 % 12/26/2020 10:20 AM [employer] [facility] - . [facility] LYMPHOCYTES 38 % 12/26/2020 10:20 AM [employer] [facility] - . [facility] MONOCYTES 9 % 12/26/2020 10:20 AM [employer] [facility] - [facility] EOSINOPHILS 7 % 12/26/2020 10:20 AM [employer] [facility]ORY [facility] - . [facility] BASOPHILS 1 % 12/26/2020 10:20 AM [employer] LABORATORY SERVICES - . [facility] IMMATURE GRANULOCYTES 0 % 12/26/2020 10:20 AM [employer] [facility]ORY [facility] - . [facility] NEUTROPHIL ABSOLUTE 4.19 1.90 - 7.00 K/uL 12/26/2020 10:20 AM [employer] [facility]ORY [facility] - [facility] LYMPHOCYTE ABSOLUTE 3.54 0.70 - 4.50 K/uL 12/26/2020 10:20 AM [employer] [facility] - [facility] MONOCYTE ABSOLUTE 0.80 0.10 - 1.30 K/uL 12/26/2020 10:20 AM [employer] [facility]ATORY SERVICES - [facility] EOSINOPHIL ABSOLUTE 0.61 0.00 - 0.70 K/uL 12/26/2020 10:20 AM [employer] [facility]ORY SERVICES - . [facility] BASOPHILS ABSOLUTE 0.05 0.00 - 0.20 K/uL 12/26/2020 10:20 AM [employer] LABORATORY SERVICES - [facility] IMMATURE GRANULOCYTES ABSOLUTE 0.02 0.00 - 0.03 K/uL 12/26/2020 10:20 AM HAULAGE ENGINE OPERATOR [facility] LABORATORY [facility] Blood Venipuncture / Unknown 12/26/2020 10:08 AM HAULAGE ENGINE OPERATOR 12/26/2020 10:18 AM HAULAGE ENGINE OPERATOR Kailyn Blood MD HEMATOLOGY ORDERABLE S [facility] LABORATORY [facility] CLIA# [id number] [address] [place] [address] documented in this encounter Visit Diagnoses Diagnosis Prostate cancer Malignant neoplasm of prostate documented in this encounter Care Teams Revenue Integrity Analyst Relationship Specialty Start Date End Date Anirudh Craft MD [address] [phone] PCP - General Internal Medicine 08/01/20 09/19/24 documented as of this encounter
--- OUTSIDE RECORDS SUMMARY | 2024-10-30 02:31 | XMS_ITS | Encounter Summary ---
Author Organization [facility] Address [address] [place] [address] Care Team Providers Care Repair Clerk Name Role Phone Anirudh Craft MD Primary Care Provider Reason for Visit * Reason Onset Date Comments Results 03/27/2021 Encounter Details Date Type Department Care Team (Late st Contact Info) Description 03/27/2021 Patient Outreach [facility] [place] [address] [facility] [address] [place] [address] Kailyn Blood MD [address] [facility] [address] [place] [address] Results Social History Tobacco Use Types Packs/Day [...] encounter Miscellaneous Notes * Telephone Encounter - Susie Aldana RN - 03/27/2021 12:35 PM CDT Images from the original note were not included. Kailyn Blood MD P [facility] [place] Triage Please tell him that his left arm x-ray is normal no cancer. documented in this encounter Plan of Treatment Upcoming Encounters Date Type Department Care Team (Late st Contact Info) Description 12/13/2024 9:45 AM DIE TRIPPER Office Visit [facility] Oncology and Hematology [facility] [address] [facility] [address] [place] [address] Glenn Al MD [address] [facility] [address] [place] [address] documented as of this encounter Visit Diagnoses Not on filedocumented in this encounter Care Teams Repair Clerk Relationship Specialty Start Date End Date Anirudh Craft MD [address] [facility] [address] [place] [phone] PCP - General Internal Medicine 08/01/20 09/19/24 documented as of this encounter
--- OUTSIDE RECORDS SUMMARY | 2024-10-30 02:31 | XMS_ITS | Encounter Summary ---
Author Organization [facility] Address [address] [place] [address] Care Team Providers Care Denture Waxer Name Role Phone Anirudh Craft MD Primary Care Provider Reason for Visit * Reason Onset Date Comments Results 03/22/2021 Encounter Details Date Type Department Care Team (Late st Contact Info) Description 03/22/2021 Telephone [facility] Pulmonology [facility] [address] [place] [address] Terrence Hawk MD [address] [place] [address] Results Social History Tobacco Use Types Packs/Day [...] encounter Miscellaneous Notes * Telephone Encounter - Terrence Hawk MD - 03/22/2021 5:55 PM CDT Called and discussed with patient, PFTs are essentially normal which could be consistent with an underlying process such as bronchial asthma. Given some improvement with rescue albuterol, shall proceed with initiating Breo Ellipta 100/25 daily and monitor his clinical response. * Telephone Encounter - Bruna Alvarez RN - 03/22/2021 3:45 PM CDT Pt requests results of PFT testing done on 03/18. Results are up in epic. documented in this encounter Plan of Treatment Upcoming Encounters Date Type Department Care Team (Late st Contact Info) Description 12/13/2024 9:45 AM BOX BENDER Office Visit [facility] Oncology and Hematology [facility] [address] [facility] [address] [place] [address] Glenn Al MD [address] [facility] [address] [place] [address] documented as of this encounter Visit Diagnoses Not on filedocumented in this encounter Care Teams Denture Waxer Relationship Specialty Start Date End Date Anirudh Craft MD [address] [facility] [address] [place] [phone] PCP - General Internal Medicine 08/01/20 09/19/24 documented as of this encounter
--- OUTSIDE RECORDS SUMMARY | 2024-10-30 02:31 | XMS_ITS | Encounter Summary ---
Author Organization [facility] Address [address] [place] [address] Care Team Providers Care Production Machine Shop Supervisor Name Role Phone Anirudh Craft MD Primary Care Provider Encounter Details Date Type Department Care Team (Late Contact Info) Description 07/01/2021 Orders Only [facility] [place] [address] [facility] [address] [place] [address] Kailyn Blood MD [address] [facility] [address] [place] [address] Social History Tobacco Use Types Packs/Day Years [...] have Coronavirus / COVID-19? No / Unsure 06/28/2021 8:10 AM CDT documented as of this encounter Plan of Treatment Upcoming Encounters Date Type Department Care Team (Late Contact Info) Description 12/13/2024 9:45 AM TRADE MARKER Office Visit [facility] Oncology and Hematology - [place] [address] [address] Glenn Al MD [address] [facility] [address] [place] [address] documented as of this encounter Visit Diagnoses Not on filedocumented in this encounter Care Teams Production Machine Shop Supervisor Relationship Specialty Start Date End Date Anirudh Craft MD [address] [address] PCP - General Internal Medicine 08/01/20 09/19/24 documented as of this encounter
--- OUTSIDE RECORDS SUMMARY | 2024-10-30 02:31 | XMS_ITS | Encounter Summary ---
Author Organization [facility] Address [address] [facility] Attn: Epic Prelude ADT [place] [address] Care Team Providers Care Senior Accountant Analyst Name Role Phone Anirudh Craft MD Primary Care Provider Encounter Details Date Type Department Care Team (Latest Contact Info) Description 03/04/2021 Travel Social History Tobacco Use Types Packs/Day [...] st Contact Info) Description 12/13/2024 9:45 AM CONSTRUCTION MGR Office Visit [facility] Oncology and Hematology - [place] [address] [facility] 200 [place] [address] Glenn Al MD [address] [facility] [address] [place] [address] documented as of this encounter Visit Diagnoses Not on filedocumented in this encounter Care Teams Senior Accountant Analyst Relationship Specialty Start Date End Date Anirudh Craft MD [address] [address] PCP - General Internal Medicine 08/01/20 09/19/24 documented as of this encounter
--- OUTSIDE RECORDS SUMMARY | 2024-10-30 02:31 | XMS_ITS | Encounter Summary ---
Author Organization [facility] Address [address] [place] [address] Care Team Providers Care Broomcorn Grader Name Role Phone Anirudh Craft MD Primary Care Provider Encounter Details Date Type Department Care Team (Late Contact Info) Description 07/01/2021 Orders Only [facility] ONCOLOGY AND [facility]ATOLOGY - [place] [address] [facility] [address] [place] [address] Kailyn Blood MD [address] [facility] [address] [place] [address] Social History Tobacco Use Types Packs/Day [...] Contact Info) Description 12/13/2024 9:45 AM PUBLIC HEALTH SERVICE OFFICER Office Visit [facility] Oncology and Hematology - [place] [address] [address] Glenn Al MD [address] [facility] [address] [place] [address] documented as of this encounter Visit Diagnoses Not on filedocumented in this encounter Care Teams Broomcorn Grader Relationship Specialty Start Date End Date Anirudh Craft MD [address] [address] PCP - General Internal Medicine 08/01/20 09/19/24 documented as of this encounter
--- OUTSIDE RECORDS SUMMARY | 2024-10-30 02:31 | XMS_ITS | Encounter Summary ---
Author Organization [facility] Address [address] [facility] Attn: Epic Prelude ADT [place] [address] Care Team Providers Care School Fundraising Director Name Role Phone Anirudh Craft MD Primary Care Provider [phone] Encounter Details Date Type Department Care Team (Latest Contact Info) Description 03/06/2021 Travel Social History Tobacco Use Types Packs/Day [...] have Coronavirus / COVID-19? No / Unsure 03/06/2021 9:19 AM CDT documented as of this encounter Plan of Treatment Upcoming Encounters Date Type Department Care Team (Late st Contact Info) Description 12/13/2024 9:45 AM BUCKLE ATTACHER Office Visit [facility] Oncology and Hematology - [place] [address] [facility] 200 [place] [address] Glenn Al MD [address] [facility] [address] [place] [address] documented as of this encounter Visit Diagnoses Not on filedocumented in this encounter Care Teams School Fundraising Director Relationship Specialty Start Date End Date Anirudh Craft MD [address] [address] PCP - General Internal Medicine 08/01/20 09/19/24 documented as of this encounter
--- OUTSIDE RECORDS SUMMARY | 2024-10-30 02:31 | XMS_ITS | Encounter Summary ---
Author Organization [facility] Address [address] [place] [address] Care Team Providers Care Assistant Store Manager Sales Name Role Phone Anirudh Craft MD Primary Care Provider [phone] Reason for Visit * Auth/Cert Specialty Diagnoses / Procedures Referred By Contac t Referred To Contact Radiology [facility] A [address] [place] [address] Referral ID Status Reason Start Date Expiration Date Visits Re quested Visits Authorized [id number] 1 1 Encounter Details Date Type Department Care Team (Latest Contact Info) Description 03/04/2021 11:41 AM CDT - 03/04/2021 11:59 PM CDT Hospital Encounter [facility] [place] A [address] [place] [address] Terrence Hawk MD [address] [facility] [address] [place] [address] Discharge Disposition: Home or Self [...] st Contact Info) Description 12/13/2024 9:45 AM CHIEF DEPUTY CLERK/BAILIFF Office Visit [facility] Oncology and Hematology - [place] [address] [facility] [address] [place] [address] Glenn Al MD [address] [facility] [address] [place] [address] documented as of this encounter Procedures Procedure Name Priority Date/Time Associated Diagnosis Comments XR CHEST PA AND LATERAL 2 VW Routine 03/04/2021 11:55 AM CDT Chronic cough documented in this encounter Results * XR CHEST PA AND LATERAL 2 VW (03/04/2021 11:55 AM CDT) Anatomical Region Laterality Modality Chest Computed Radiogr aphy 03/04/2021 11:5 5 AM CDT Impressions 03/04/2021 11:59 AM CDT IMPRESSION: 1. Mild linear atelectasis or scarring in the right midlung. DICTATION LOCATION: Location 1 - [facility] Narrative 03/04/2021 11:59 AM CDT EXAMINATION: ??CHEST 2 [...] right midlung. DICTATION LOCATION: Location 1 - [facility] Terrence Hawk MD DIAGNOSTIC IMAGING O RDERABLES documented in this encounter Visit Diagnoses Diagnosis Chronic cough Cough documented in this encounter Care Teams Assistant Store Manager Sales Relationship Specialty Start Date End Date Anirudh Craft MD [address] [phone] PCP - General Internal Medicine 08/01/20 09/19/24 documented as of this encounter
--- OUTSIDE RECORDS SUMMARY | 2024-10-30 02:31 | XMS_ITS | Encounter Summary ---
Author Organization [facility] Address [address] [place] [address] Care Team Providers Care Inorganic Chemist Name Role Phone Anirudh Craft MD Primary Care Provider [phone] Reason for Referral * Outpatient Services (Routine) - Closed Specialty Diagnoses / Procedures Referred By Cecile yan Referred To Contact Respiratory Therapy Diagnoses Chronic cough Procedures EXHALED NITRIC OXIDE/FENO Adia Hawk MD [address] [place] [address] [facility] Pulmonary Function [place] A [address] [facility] [address] [place] [address] Referral ID Status Reason Start Date Expiration Date V isits Requested Visits Authorized [id number] Closed [facility] CTS 03/04/2021 04/04/2022 1 1 Reason for Visit * Outpatient Services (Routine) - Closed Specialty Diagnoses / Procedures Referred By Cecile yan Referred To Contact Respiratory Therapy Diagnoses Chronic cough Procedures EXHALED NITRIC OXIDE/FENO Adia Hawk MD [address] [place] [address] St Pulmonary Function [place] A [address] [facility] [address] [place] [address] Referral ID Status Reason Start Date Expiration Date V isits Requested Visits Authorized [id number] Closed [facility] CTS 03/04/2021 04/04/2022 1 1 Encounter Details Date Type Department Care Team (Latest Contact Info) Description 03/18/2021 9:55 AM CDT - 03/18/2021 11:59 PM CDT Hospital [facility] Pul[facility] Function [facility] [place] A [address] [place] [address] [place] [address] Adia Hawk MD [address] [place] [address] Discharge Disposition: Home or Self [...] st Contact Info) Description 12/13/2024 9:45 AM TAX TECHNICIAN Office Visit [facility] Oncology and Hematology - [place] Renate Tariq [address] [address] Glenn Al MD [address] [facility] [address] [place] [address] Pending Results Name Type Priority Associated Diagnoses Date /Time EXHALED NITRIC OXIDE/FENO PFT Routine Chronic cough 03/18/2021 3:08 PM CDT documented as of this encounter Procedures Procedure Name Priority Date/Time Associated Diagnosis Comments EXHALED NITRIC OXIDE/FENO Routine 03/18/2021 3:08 PM CDT Chronic cough Procedure Note - 03/18/2021 3:08 PM CDTThis note is in progress. Pulmonary Function Report [facility] Test Date: 03/18/2021 3:08 PM Pat Name: ILAN MCCAULEY Department: Room: Gender: Special Education Professional: : 1940 Requested By: ADIA Murillo Order Number: [id number] Mayo AVITIA: Interpretive Statements 3.30 documented in this encounter Visit Diagnoses Diagnosis Chronic cough Cough documented in this encounter Care Teams Inorganic Chemist Relationship Specialty Start Date End Date Anirudh Craft MD [address] [address] PCP - General Internal Medicine 08/01/20 09/19/24 documented as of this encounter
--- OUTSIDE RECORDS SUMMARY | 2024-10-30 02:32 | XMS_ITS | Encounter Summary ---
Author Organization [facility] Address [address] [place] [address] Care Team Providers Care Grade Foreman Name Role Phone GutierrezIlan DO Primary Care Provider Encounter Details Date Type Department Care Team (Late Contact Info) Description 05/29/2020 Orders Only [facility] ONCOLOGY AND [facility]EMATOLOGY - [place] [address] [facility] [address] [place] [phone] Kailyn Blood MD [address] [facility] [address] [place] [address] Neoplasm of head; Malignant neoplasm of parotid gland Social History [...] have Coronavirus / COVID-19? No / Unsure 05/18/2020 1:50 PM CDT documented as of this encounter Plan of Treatment Upcoming Encounters Date Type Department Care Team (Late st Contact Info) Description 12/13/2024 9:45 AM LINE AND FRAME POLER Office Visit 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 [place] [phone] PCP - General 09/07/09 07/31/20 documented as of this encounter
--- OUTSIDE RECORDS SUMMARY | 2024-10-30 02:32 | XMS_ITS | Encounter Summary ---
Author Organization [facility] Address [address] [place] [address] Care Team Providers Care Audit Intern Name Role Phone TeofilorgaaronbrianashandaIlan DO Primary Care Provider Reason for Visit * Reason Comments Follow Up FOLLOW UP,LABS Encounter Details Date Type Department Care Team (Late st Contact Info) Description 06/20/2020 11:30 AM CDT Office Visit [facility] ONCOLOGY AND HEMATOLOGY - [place] [address] [facility] [address] [place] [phone] Kailyn Blood MD [address] [facility] [address] [place] [address] Prostate cancer (Primary Dx) Social History [...] have Coronavirus / COVID-19? No / Unsure 06/20/2020 10:40 AM CDT documented as of this encounter Last Filed Vital Signs Vital Sign Reading Time Taken Comments Blood Pressure 118/72 06/20/2020 11:26 AM CDT Pulse 75 06/20/2020 11:26 AM CDT Temperature 36.3 ??C (97.4 ??F) 06/20/2020 11:26 AM C DT Respiratory Rate - - Oxygen Saturation - - Inhaled Oxygen Concentration - - Weight 71 kg (156 lb 8 oz) 06/20/2020 11:26 AM C DT Height 167.6 cm (5' 6 ) 06/20/2020 11:26 AM CDT Body Mass Index 25.26 06/20/2020 11:26 AM CDT documented in this encounter Progress Notes * Kailyn Blood MD - 06/20/2020 11:27 AM CDT Hematology Oncology Follow up DIAGNOSIS Metastatic prostate cancer, Kelly score 8, with right acetabulum met in 11/2019 Right lung nodule CURRENT TREATMENT Lupron Xgeva TREATMENT HISTORY Casodex SUBJECTIVE Patient returns today for reevaluation. The patient has been doing well without any new complaints. REVIEW [...] obvious focal deficit LABS WBC 7.7 Hgb 14.2 plt 252 PSA <0.1 ASSESSMENT/PLAN 1. Prostate cancer. Tolerated treatment well. In remission. Continue Lupron today. 2. RLL nodule. Repeat CT showed significantly decreased RLL lung nodule indicating a benign etiology. Will monitor it closely. 3. Will continue Xgeva for bone mets today. Patient will follow-up with me in 6 weeks. René Blood MD [facility] Oncology and Hematology [facility] documented in this encounter Plan of Treatment Upcoming Encounters Date Type Department Care Team (Late st Contact Info) Description 12/13/2024 9:45 AM COLLECTIONS PROFESSIONAL Office Visit [facility] Oncology and Hematology [facility] [address] [facility] 200 [place] [phone] Glenn Al MD [address] [facility] 100 [place] [phone] documented as of this encounter Visit Diagnoses Diagnosis Prostate cancer- Primary Malignant neoplasm of prostate documented in this encounter Care Teams Audit Intern Relationship Specialty Start Date End Date Ilan Whitley DO [address] [place] [address] PCP - General 09/07/09 07/31/20 documented as of this encounter
--- OUTSIDE RECORDS SUMMARY | 2024-10-30 02:32 | XMS_ITS | Encounter Summary ---
Author Organization [facility] Address [address] [place] [address] Care Team Providers Care Conservation Science Officer Name Role Phone GutierrezIlan DO Primary Care Provider Encounter Details Date Type Department Care Team (Late Contact Info) Description 01/17/2020 Orders Only [facility] ONCOLOGY AND HEMATOLOGY - [place] [address] [facility] [address] [place] [phone] Kailyn Blood MD [address] [facility] [address] [place] [address] Cancer, metastatic to bone Social History Tobacco [...] have Coronavirus / COVID-19? No / Unsure 01/18/2020 8:47 AM CDT documented as of this encounter Plan of Treatment Upcoming Encounters Date Type Department Care Team (Late st Contact Info) Description 12/13/2024 9:45 AM FOLDED CLOTH TAPER Office Visit 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 [place] [address] PCP - General 09/07/09 07/31/20 documented as of this encounter
--- OUTSIDE RECORDS SUMMARY | 2024-10-30 02:32 | XMS_ITS | Encounter Summary ---
Author Organization [facility] Address [address] [place] [address] Care Team Providers Care Motor Vehicle License Clerk Name Role Phone Anirudh Craft MD Primary Care Provider Encounter Details Date Type Department Care Team (Latest Contact Info) Description 08/01/2020 10:29 AM CDT - 08/01/2020 11:59 PM CDT Hospital Encounter [facility] Laboratory Services [facility] [address] [place] [address] Kailyn Blood MD [address] [place] [address] Discharge Disposition: Home or Self [...] have Coronavirus / COVID-19? No / Unsure 08/01/2020 10:28 AM CDT documented as of this encounter Medications at Time of Discharge Medication Sig Dispensed Refills Start Date End Date rosuvastatin (CRESTOR) 20 mg tablet Take 10 mg by mouth daily at bedtime. 10MG NOW PER PT amLODIPine (NORVASC) 5 mg tablet Take 2.5 mg by mouth daily. documented as of this encounter Plan of Treatment Upcoming Encounters Date Type Department Care Team (Late st Contact Info) Description 12/13/2024 9:45 AM PROJECT SPECIALIST Office Visit [facility] Oncology and Hematology [facility] 7 [facility] [address] [place] [address] Glenn Al MD [address] [facility] [address] [place] [address] documented as of this encounter Procedures Procedure Name Priority Date/Time Associated Diagnosis Comments CBC WITH DIFFERENTIAL Routine 08/01/2020 10:36 AM CDT Prostate cancer PSA Routine 08/01/2020 10:36 AM CDT Prostate cancer COMPREHENSIVE METABOLIC PANEL Routine 08/01/2020 10:36 AM CDT Prostate cancer documented in this encounter Results * PSA (08/01/2020 10:36 AM CDT) Pathologist [facility] PSA <0.1 <4.0 ng/mL 08/01/2020 11:38 AM CDT [facility] Blood Venipuncture / Unknown 08/01/2020 10:36 AM CDT 08/01/2020 10:52 AM CDT Narrative [facility] - 08/01/2020 11:38 AM CDT The concentration of PSA in a given specimen, as determined by assays from different manufacturers, can vary because of differences in assay methods and reagent specificity. Values obtained with different assay methods cannot be used interchangeably. The testing method in use is the WILLIAM Electrochemiluminescence Immunoassay. Kailyn Blood MD CHEMISTRY ORDERABLES [facility] CLIA# [id number] [address] [facility] [place] [address] * COMPREHENSIVE METABOLIC PANEL (08/01/2020 10:36 AM CDT) [facility] SODIUM 139 136 - 145 mmol/L 08/01/2020 11:38 AM [facility] [facility] - [facility] POTASSIUM 4.5 3.5 - 5.0 mmol/L 08/01/2020 11:38 AM [facility] CHLORIDE 100 98 - 107 mmol/L 08/01/2020 11:38 AM [facility] CO2 25 22 - 29 mmol/L 08/01/2020 11:38 AM [employer] [facility] - . [facility] CALCIUM 9.4 8.6 - 10.2 mg/dL 08/01/2020 11:38 AM [employer] [facility] - . [facility] BUN 17 8 - 23 mg/dL 08/01/2020 11:38 AM [employer] [facility] - . [facility] CREATININE 0.86 0.67 - 1.17 mg/dL 08/01/2020 11:38 AM [facility] Comment:The GFR result is no t clinically significant on patients <18 or >70 years of age. GLUCOSE 89 74 - 99 mg/dL 08/01/2020 11:38 AM [employer] [facility] TOTAL PROTEIN 6.9 6.7 - 8.6 g/dL 08/01/2020 11:38 AM [employer] [facility] - . [facility] ALBUMIN 4.5 3.5 - 5.2 g/dL 08/01/2020 11:38 AM [employer] [facility] - . [facility] BILIRUBIN TOTAL 0.4 0.2 - 1.1 mg/dL 08/01/2020 11:38 AM [employer] [facility] ALKALINE PHOSPHATASE 56 40 - 129 U/L 08/01/2020 11:38 AM [employer] [facility] - . [facility] AST 24 <41 U/L 08/01/2020 11:38 AM [employer] [facility] - . [facility] ALT 18 <42 U/L 08/01/2020 11:38 AM [employer] [facility] - . [facility] GFR >60 mL/min/1.7 3 sq meter 08/01/2020 11:38 AM [facility] [facility] Comment: [...] result. GFR, >60 mL/min/1.7 3 sq meter 08/01/2020 11:38 AM [facility] ANION GAP 14 8 - 16 mmol/L 08/01/2020 11:38 AM [facility] [employer] [facility] Blood Venipuncture / Unknown 08/01/2020 10:36 AM CDT 08/01/2020 10:52 AM CDT Narrative [facility] - 08/01/2020 11:38 AM CDT Samples containing indocyanine green cause interferences on Total and/or Direct Bilirubin and must not be measured. Kailyn Blood MD CHEMISTRY ORDERABLES [facility] [employer] [facility]# [id number] 5 [facility] [place] [address] * (ABNORMAL) CBC WITH DIFFERENTIAL (08/01/2020 10:36 AM CDT) WBC 7.6 4.0 - 9.8 K/uL 08/01/2020 10:54 AM [facility] [employer] [facility] RBC 3.85(L) 4.50 - 5.40 M/uL 08/01/2020 10:54 AM [facility] [employer] [facility] HEMOGLOBIN 12.9(L) 13.6 - 16.5 g/dL 08/01/2020 10:54 AM [facility] [employer] [facility] HEMATOCRIT 38.9(L) 40.0 - 48.0 % 08/01/2020 10:54 AM [facility] [employer] [facility] MCV 101.0(H) 82.0 - 99.0 fL 08/01/2020 10:54 AM CDT [facility] MCH 33.5(H) 27.2 - 32.6 pg 08/01/2020 10:54 AM CDT [facility] MCHC 33.2 31.5 - 35.5 g/dL 08/01/2020 10:54 AM CDT [facility] RDW 13.2 11.5 - 14.5 % 08/01/2020 10:54 AM CDT [facility] RDW-STDEV 48.6 37.1 - 48.7 fL 08/01/2020 10:54 AM CDT [facility] PLATELETS 256 140 - 350 K/uL 08/01/2020 10:54 AM CDT [facility] MPV 10.1 9.3 - 12.4 fL 08/01/2020 10:54 AM CDT [facility] NEUTROPHILS 47 % 08/01/2020 10:54 AM CDT [facility] LYMPHOCYTES 36 % 08/01/2020 10:54 AM CDT [facility] MONOCYTES 11 % 08/01/2020 10:54 AM CDT [facility] - . [facility] EOSINOPHILS 6 % 08/01/2020 10:54 AM CDT [facility] BASOPHILS 1 % 08/01/2020 10:54 AM CDT [facility] IMMATURE GRANULOCYTES 0 % 08/01/2020 10:54 AM CDT [facility] NEUTROPHIL ABSOLUTE 3.57 1.90 - 7.00 K/uL 08/01/2020 10:54 AM CDT [facility] LYMPHOCYTE ABSOLUTE 2.70 0.70 - 4.50 K/uL 08/01/2020 10:54 AM CDT [facility] - . [facility] MONOCYTE ABSOLUTE 0.84 0.10 - 1.30 K/uL 08/01/2020 10:54 AM CDT [facility] - . [facility] EOSINOPHIL ABSOLUTE 0.42 0.00 - 0.70 K/uL 08/01/2020 10:54 AM CDT [facility] - . [facility] BASOPHILS ABSOLUTE 0.04 0.00 - 0.20 K/uL 08/01/2020 10:54 AM CDT [facility] IMMATURE GRANULOCYTES ABSOLUTE 0.02 0.00 - 0.03 K/uL 08/01/2020 10:54 AM CDT [facility] Blood Venipuncture / Unknown 08/01/2020 10:36 AM CDT 08/01/2020 10:50 AM CDT Kailyn Blood MD HEMATOLOGY ORDERABLE S [facility] CLIA# [id number] [address] [place] [facility] [place] [address] documented in this encounter Visit Diagnoses Diagnosis Prostate cancer Malignant neoplasm of prostate documented in this encounter Care Teams Motor Vehicle License Clerk Relationship Specialty Start Date End Date Anirudh Craft MD [address] [facility] 4 [place] [phone] PCP - General Internal Medicine 08/01/20 09/19/24 documented as of this encounter
--- OUTSIDE RECORDS SUMMARY | 2024-10-30 02:32 | XMS_ITS | Encounter Summary ---
Author Organization [facility] Address [address] [facility] Attn: Epic Prelude ADT [place] [address] Care Team Providers Care Automotive Service Management Teacher Name Role Phone Ilan Whitley DO Primary Care Provider Encounter Details Date Type Department Care Team (Latest Contact Info) Description 02/16/2020 Travel Social History Tobacco Use Types Packs/Day [...] have Coronavirus / COVID-19? No / Unsure 02/16/2020 10:17 AM CDT documented as of this encounter Plan of Treatment Upcoming Encounters Date Type Department Care Team (Late st Contact Info) Description 12/13/2024 9:45 AM MOVIE THEATER MANAGER Office Visit [facility] Oncology and Hematology - [place] [address] [facility] 200 [place] [address] Glenn Al MD [address] [facility] [address] [place] [address] documented as of this encounter Visit Diagnoses Not on filedocumented in this encounter Care Teams Automotive Service Management Teacher Relationship Specialty Start Date End Date Ilan Whitley DO [address] [place] [address] PCP - General 09/07/09 07/31/20 documented as of this encounter
--- OUTSIDE RECORDS SUMMARY | 2024-10-30 02:32 | XMS_ITS | Encounter Summary ---
Author Organization [facility] Address [address] [place] [address] Care Team Providers Care Pm Technician Name Role Phone Anirudh Craft MD Primary Care Provider Reason for Visit * Reason Comments Follow Up FOLLOW UP,LABS Encounter Details Date Type Department Care Team (Late st Contact Info) Description 09/19/2020 10:20 AM CATH LABORATORY TECHNICIAN Office Visit [facility] ONCOLOGY AND HEMATOLOGY - [place] [address] [facility] [address] [place] [phone] Kailyn Blood MD 607 [facility] [address] [place] [address] Cancer, metastatic to bone (Primary Dx) Social [...] have Coronavirus / COVID-19? No / Unsure 09/19/2020 9:28 AM CATH LABORATORY TECHNICIAN documented as of this encounter Last Filed Vital Signs Vital Sign Reading Time Taken Comments Blood Pressure 118/72 09/19/2020 9:52 AM CATH LABORATORY TECHNICIAN Pulse - - Temperature 36.4 ??C (97.5 ??F) 09/19/2020 9:52 AM CS T Respiratory Rate - - Oxygen Saturation - - Inhaled Oxygen Concentration - - Weight 70.7 kg (155 lb 14.4 oz) 09/19/2020 9:52 AM CATH LABORATORY TECHNICIAN Height 167.6 cm (5' 6 ) 09/19/2020 9:52 AM CATH LABORATORY TECHNICIAN Body Mass Index 25.16 09/19/2020 9:52 AM CATH LABORATORY TECHNICIAN documented in this encounter Progress Notes * Kailyn Blood MD - 09/19/2020 12:22 PM CST Hematology Oncology Follow up DIAGNOSIS Metastatic prostate cancer, Y[place] score 8, with right acetabulum met in [...] Neuro: No obvious focal deficit LABS WBC 7.9 Hgb 13.9 plt 215 PSA <0.1 ASSESSMENT/PLAN 1. Prostate cancer. Tolerated treatment well. In remission. Continue Lupron today. 2. RLL nodule. Repeat CT showed significantly decreased RLL lung nodule indicating a benign etiology. Will monitor it closely. 3. Will continue Xgeva for bone mets today. Patient will follow-up with me in 6 weeks. René Blood MD [facility] Oncology and Hematology [facility] LABORATORY TECHNICIAN documented in this encounter Plan of Treatment Upcoming Encounters Date Type Department Care Team (Late st Contact Info) Description 12/13/2024 9:45 AM CATH LABORATORY TECHNICIAN Office Visit [facility] Oncology and Hematology [facility] [address] [facility] 200 [place] [phone] Glenn Al MD [address] [facility] [address] [place] [address] documented as of this encounter Visit Diagnoses Diagnosis Cancer, metastatic to bone- Primary Secondary malignant neoplasm of bone and bone marrow documented in this encounter Care Teams Pm Technician Relationship Specialty Start Date End Date Anirudh Craft MD [address] [facility] 4 [place] [phone] PCP - General Internal Medicine 08/01/20 09/19/24 documented as of this encounter
--- OUTSIDE RECORDS SUMMARY | 2024-10-30 02:32 | XMS_ITS | Encounter Summary ---
Author Organization [facility] Address [address] [facility] Attn: Epic Prelude ADT [place] [address] Care Team Providers Care Drain Layer Name Role Phone Anirudh Craft MD Primary Care Provider Encounter Details Date Type Department Care Team (Latest Contact Info) Description 09/19/2020 Travel Social History Tobacco Use Types Packs/Day [...] COVID-19? No / Unsure 09/19/2020 9:28 AM TIRE CLASSIFIER documented as of this encounter Plan of Treatment Upcoming Encounters Date Type Department Care Team (Late st Contact Info) Description 12/13/2024 9:45 AM TIRE CLASSIFIER Office Visit [facility] Oncology and Hematology - [place] [address] [facility] 200 [place] [address] Glenn Al MD [address] [facility] [address] [place] [address] documented as of this encounter Visit Diagnoses Not on filedocumented in this encounter Care Teams Drain Layer Relationship Specialty Start Date End Date Anirudh Craft MD [address] [phone] PCP - General Internal Medicine 08/01/20 09/19/24 documented as of this encounter
--- OUTSIDE RECORDS SUMMARY | 2024-10-30 02:32 | XMS_ITS | Encounter Summary ---
Author Organization [facility] Address [address] [place] [address] Care Team Providers Care Towerman Name Role Phone Ilan Whitley DO Primary Care Provider Reason for Visit * Reason Onset Date Comments Cough 03/02/2020 Encounter Details Date Type Department Care Team (Late st Contact Info) Description 03/02/2020 Telephone [facility] ONCOLOGY AND [facility]ATOLOGY - [place] [address] [facility] [address] [place] [phone] Kailyn Blood MD [address] [facility] [address] [place] [address] Cough Social History Tobacco Use Types Packs/Day Years [...] Telephone Encounter - Susie Aldana RN - 03/02/2020 10:41 AM CDT ----- Message from Kailyn Blood MD sent at 03/02/2020 6:13 AM CDT ----- He can have robitussin 10 cc q4h prn. Let him also get a CXR now. ----- Message ----- From: Susie Aldana, RN Sent: 03/01/2020 5:47 PM CDT To: Kailyn Blood MD Asking for something for the cough. He will not take any med OTC does not feel it is helpful. Dr Simpson Spoke with Elijah and he wants to go to [facility] to have the CXR. Ordered faxed. documented in this encounter Plan of Treatment Upcoming Encounters Date Type Department Care Team (Late st Contact Info) Description 12/13/2024 9:45 AM BOOK CLEANER Office Visit [facility] Oncology and Hematology [facility] [address] [facility] 200 [place] [address] Glenn Al MD [address] [facility] 100 [place] [address] documented as of this encounter Visit Diagnoses Diagnosis Solitary lung nodule- Primary Solitary pulmonary nodule Prostate cancer Malignant neoplasm of prostate Cough documented in this encounter Care Teams Towerman Relationship Specialty Start Date End Date Ilan Whitley DO [address] [place] [address] PCP - General 09/07/09 07/31/20 documented as of this encounter
--- OUTSIDE RECORDS SUMMARY | 2024-10-30 02:32 | XMS_ITS | Encounter Summary ---
Author Organization [facility] Address [address] [facility] Attn: Epic Prelude ADT [place] [address] Care Team Providers Care Carton Making Machinist Name Role Phone Anirudh Craft MD Primary Care Provider Encounter Details Date Type Department Care Team (Latest Contact Info) Description 08/01/2020 Travel Social History Tobacco Use Types Packs/Day [...] st Contact Info) Description 12/13/2024 9:45 AM REFINING STILL OPERATOR Office Visit [facility] Oncology and Hematology - [place] [address] [facility] 200 [place] [address] Glenn Al MD [address] [facility] [address] [place] [address] documented as of this encounter Visit Diagnoses Not on filedocumented in this encounter Care Teams Carton Making Machinist Relationship Specialty Start Date End Date Anirudh Craft MD [address] [address] PCP - General Internal Medicine 08/01/20 09/19/24 documented as of this encounter
--- OUTSIDE RECORDS SUMMARY | 2024-10-30 02:32 | XMS_ITS | Encounter Summary ---
Author Organization [facility] Address [address] [place] [address] Care Team Providers Care Data Technician Name Role Phone TeofilorgaaronIlan bennett DO Primary Care Provider Reason for Visit * Reason Comments Follow Up FOLLOW UP,LABS,INJ Encounter Details Date Type Department Care Team (Late st Contact Info) Description 02/16/2020 11:05 AM CDT Office Visit [facility] ONCOLOGY AND HEMATOLOGY - [place] [address] [facility] [address] [place] [address] Kailyn Blood MD [address] [facility] [address] [place] [address] Prostate cancer; Cancer, metastatic to bone Social History Tobacco [...] Sign Reading Time Taken Comments Blood Pressure 132/70 02/16/2020 10:50 AM CDT Pulse 76 02/16/2020 10:50 AM CDT Temperature 36.8 ??C (98.2 ??F) 02/16/2020 10:50 AM C DT Respiratory Rate 16 02/16/2020 10:50 AM CDT Oxygen Saturation - - Inhaled Oxygen Concentration - - Weight 68.9 kg (152 lb) 02/16/2020 10:50 AM CDT Height 167.6 cm (5' 6 ) 02/16/2020 10:50 AM CDT Body Mass Index 24.53 02/16/2020 10:50 AM CDT documented in this encounter Progress Notes * Kailyn Blood MD - 02/16/2020 11:07 AM CDT Hematology Oncology Follow up DIAGNOSIS [...] obvious focal deficit LABS WBC 8.5 Hgb 14.1 plt 259 PSA 0.3 ASSESSMENT/PLAN 1. Prostate cancer. Tolerated treatment well. Responded well. Will repeat Lupron in March. Off of Casodex. 2. RLL nodule. Unable to biopsy b/o the location. Can't r/o lung cancer. Will repeat CT in 2 monthsfor further evaluation. 3. Will continue Xgeva for bone mets today. Patient will follow-up with me in 4 weeks. René Blood MD [facility] Oncology and Hematology [facility] documented in this encounter Plan of Treatment Upcoming Encounters Date Type Department Care Team (Late st Contact Info) Description 12/13/2024 9:45 AM CORE PILER Office Visit [facility] Oncology and Hematology [facility] [address] [facility] [address] [place] [address] Glenn Al MD [address] [facility] [address] [place] [address] documented as of this encounter Procedures Procedure Name Priority Date/Time Associated Diagnosis Comments XR CHEST LAT 1 VW Routine 03/02/2020 documented in this encounter Results * XR CHEST LAT 1 VW (03/02/2020) Anatomical Region Laterality Modality Chest Other Abstract Provider DIAGNOSTIC IMAGING O RDERABLES documented in this encounter Visit Diagnoses Diagnosis Prostate cancer Malignant neoplasm of prostate Cancer, 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
--- OUTSIDE RECORDS SUMMARY | 2024-10-30 02:32 | XMS_ITS | Encounter Summary ---
Author Organization [facility] Address [address] [place] [address] Care Team Providers Care Crop Quantitative Geneticist Name Role Phone Ilan Whitley DO Primary Care Provider Reason for Visit * Reason Onset Date Comments Results 01/19/2020 Encounter Details Date Type Department Care Team (Late st Contact Info) Description 01/19/2020 Telephone [facility] ONCOLOGY AND HEMATOLOGY - [place] [address] [facility] [address] [place] [address] Kailyn Blood MD [address] [facility] [address] [place] [address] Results Social History Tobacco Use Types [...] encounter Miscellaneous Notes * Telephone Encounter - Emily Allen RN - 01/19/2020 10:08 AM CDT Verbalized understanding ----- Message from Kailyn Blood MD sent at 01/18/2020 9:42 AM CDT ----- Please tell him that his PSA has gone down to 0.3, very good response to treatment. documented in this encounter Plan of Treatment Upcoming Encounters Date Type Department Care Team (Late st Contact Info) Description 12/13/2024 9:45 AM HAND FINISHER Office Visit [facility] Oncology and Hematology - [place] [address] [facility] 200 [place] [address] Glenn Al MD [address] [facility] [address] [place] [address] documented as of this encounter Visit Diagnoses Not on filedocumented in this encounter Care Teams Crop Quantitative Geneticist Relationship Specialty Start Date End Date Ilan Whitley DO [address] [place] [address] PCP - General 09/07/09 07/31/20 documented as of this encounter
--- OUTSIDE RECORDS SUMMARY | 2024-10-30 02:32 | XMS_ITS | Encounter Summary ---
Author Organization [facility] [facility] Address [address] [place] [address] Care Team Providers Care Epidemiologist Name Role Phone Gutierrez Ilan Sousa Primary Care Provider Reason for Visit * Tx/Med Therapy Plan Auth (Routine) - Closed Specialty Diagnoses / Procedures Referred By Cecile t Referred To Contact Diagnoses Prostate cancer Cancer, metastatic to bone Procedures [place] LEUPROLIDE ACETATE SUSPNSION [place] DENOSUMAB INJECTION Kailyn Edmond MD [address] [facility] [place] [address] [facility] 3rd Floor [place] [address] [facility] [place] [address] Referral ID Status Reason Start Date Expiration Date Visits Re quested Visits Authorized [id number] Closed 12/12/2020 11/01/2021 99 99 Encounter Details Date Type Department Care Team (Latest Contact Info) Description 01/18/2020 10:19 AM CDT - 01/18/2020 11:59 PM CDT Hospital Encounter [facility] [place] [facility] Infusion Center 3rd Fl [address] [facility] [place] [address] Kailyn Blood MD [address] [facility] [place] [address] Injection 2, [place] Discharge Disposition: Home or Self Care [...] Sig Dispensed Refills Start Date End Date amLODIPine (NORVASC) 5 mg tablet Take 2.5 mg by mouth daily. bicalutamide (CASODEX) 50 mg Tablet TAKE 1 TABLET(50 MG) BY MOUTH DAILY 30 Tablet 12/14/2019 08/01/2020 OMEGA-3 FATTY ACIDS (FISH OIL ORAL) Take by mouth daily. 03/22/2020 documented as of this encounter Progress Notes * Lissa Lopez RN - 01/18/2020 10:30 AM CDT Ilan Mccauley admitted to infusion center for Xgeva injection. Lab results checked and Calcium levels within range for injection. Pt demonstrates understanding of medication and possible side effects. Tolerated injection without problem. Instructed pt to notify physician or go to ED if there are any changes in their condition. Verbalized understanding. Discharged home. documented in this encounter Plan of Treatment Upcoming Encounters Date Type Department Care Team (Late st Contact Info) Description 12/13/2024 9:45 AM VALVE MAKER Office Visit [facility] Oncology and Hematology - [place] [address] [facility] [address] [place] [address] Glenn Al MD [address] [facility] [address] [place] [address] documented as of this encounter Visit Diagnoses Diagnosis Cancer, metastatic to bone- Primary Secondary malignant neoplasm of bone and bone marrow Prostate cancer Malignant neoplasm of prostate documented in this encounter Administered Medications Inactive Administered Medications - up to 3 most recent administrations Medication Order MAR Action Action Date Dose Rate Site denosumab (XGEVA) 120 mg/1.7 mL (70 mg/mL) subcut injection 120 mg 120 mg, subCUT, ONE TIME ONLY, 1 dose, On Thu01/18/20 at 1030, Routine Given 01/18/2020 10:25 AM CDT 120 mg Arm, Right Upper documented in this encounter Care Teams Epidemiologist Relationship Specialty Start Date End Date Ilan Whitley DO [address] [place] [address] PCP - General 09/07/09 07/31/20 documented as of this encounter
--- OUTSIDE RECORDS SUMMARY | 2024-10-30 02:32 | XMS_ITS | Encounter Summary ---
Author Organization [facility] Address [address] [facility] Attn: Epic Prelude ADT ESTHER WILSON [address] Care Team Providers Care Cop Name Role Phone Ilan Whitley DO Primary Care Provider Encounter Details Date Type Department Care Team (Latest Contact Info) Description 05/18/2020 Travel Social History Tobacco Use Types Packs/Day [...] st Contact Info) Description 12/13/2024 9:45 AM BUSINESS DIRECTOR Office Visit [facility] Oncology and Hematology - [place] [address] [facility] [address] [place] [address] Glenn Al MD [address] [facility] [address] [place] [address] documented as of this encounter Visit Diagnoses Not on filedocumented in this encounter Care Teams Cop Relationship Specialty Start Date End Date Ilan Whitley DO [address] [place] [address] PCP - General 09/07/09 07/31/20 documented as of this encounter
--- OUTSIDE RECORDS SUMMARY | 2024-10-30 02:32 | XMS_ITS | Encounter Summary ---
Author Organization [facility] Address [address] [place] [address] Care Team Providers Care Cake Press Operator Name Role Phone Ilan Whitley DO Primary Care Provider Reason for Visit * Reason Onset Date Comments Results 03/02/2020 Encounter Details Date Type Department Care Team (Late st Contact Info) Description 03/02/2020 Patient Outreach [facility] ONCOLOGY AND HEMATOLOGY - [place] [address] [facility] [address] [place] [address] Kailyn Blood MD [address] [address] Results Social History Tobacco Use Types [...] Encounter - Susie Aldana RN - 03/02/2020 4:[address] Blood CXR was negative. No fluid or inflammation seen. Nothing to give him at this time. Spoke with Elijah and explained CXR was fine. Told him no med to give him and no reason for the cough seen. Told if continues to see PCP. He voiced understanding. documented in this encounter Plan of Treatment Upcoming Encounters Date Type Department Care Team (Late st Contact Info) Description 12/13/2024 9:45 AM ROBOTIC TOY INVENTOR Office Visit [facility] Oncology and Hematology - [place] [address] [facility] [address] [place] [address] Glenn Al MD [address] [facility] [address] [place] [address] documented as of this encounter Visit Diagnoses Not on filedocumented in this encounter Care Teams Cake Press Operator Relationship Specialty Start Date End Date Ilan Whitley DO [address] [place] [address] PCP - General 09/07/09 07/31/20 documented as of this encounter
--- OUTSIDE RECORDS SUMMARY | 2024-10-30 02:32 | XMS_ITS | Encounter Summary ---
Author Organization [facility] Address [address] [place] [address] Care Team Providers Care Dairy Manufacturing Technologist Name Role Phone Ilan Whitley DO Primary Care Provider Reason for Visit * Reason Comments Follow Up Nurse Navigation Encounter Details Date Type Department Care Team (Late st Contact Info) Description 02/06/2020 Chart Note [facility] Oncology Patient Navigation [address] [place] [address] Nora Milligan, RN Follow Up (Nurse Navigation) Social History Tobacco Use Types Packs/Day Years [...] AM CDT documented as of this encounter Progress Notes * Nora Goode RN - 02/06/2020 1:35 PM CDT Follow-up patient navigation call to check on patient. Unable to reach the patient. Left a detailedmessage with our contact information for the patient to call at his convenience. Nora Goode RN, BSN Oncology Nurse Navigator documented in this encounter Plan of Treatment Upcoming Encounters Date Type Department Care Team (Late st Contact Info) Description 12/13/2024 9:45 AM BODY COVERER Office Visit [facility] Oncology and Hematology - [place] [address] [facility] [address] [place] [address] Glenn Al MD [address] [facility] [address] [place] [address] documented as of this encounter Visit Diagnoses Not on filedocumented in this encounter Care Teams Dairy Manufacturing Technologist Relationship Specialty Start Date End Date Ilan Whitley DO [address] [place] [address] PCP - General 09/07/09 07/31/20 documented as of this encounter
--- OUTSIDE RECORDS SUMMARY | 2024-10-30 02:32 | XMS_ITS | Encounter Summary ---
Author Organization [facility] Address [address] [place] [address] Care Team Providers Care Manager Of Finance Name Role Phone GutierrezIlan DO Primary Care Provider Reason for Visit * Reason Comments Follow Up FOLLOW UP,LABS,XGEVA Encounter Details Date Type Department Care Team (Late st Contact Info) Description 01/18/2020 10:05 AM CDT Office Visit [facility] ONCOLOGY AND HEMATOLOGY - [place] [address] [facility] [address] [place] [address] Kailyn Blood MD [address] [place] [address] [place] [address] Cancer, metastatic to bone (Primary Dx); [...] Sign Reading Time Taken Comments Blood Pressure 120/64 01/18/2020 9:04 AM CDT Pulse 64 01/18/2020 9:04 AM CDT Temperature 36.5 ??C (97.7 ??F) 01/18/2020 9:04 AM CD T Respiratory Rate 16 01/18/2020 9:04 AM CDT Oxygen Saturation - - Inhaled Oxygen Concentration - - Weight 68.9 kg (152 lb) 01/18/2020 9:04 AM CDT Height 167.6 cm (5' 6 ) 01/18/2020 9:04 AM CDT Body Mass Index 24.53 01/18/2020 9:04 AM CDT documented in this encounter Progress Notes * Kailyn Blood MD - 01/18/2020 9:28 AM CDT Hematology Oncology Follow up DIAGNOSIS Metastatic prostate cancer, Stamford score 8, with right acetabulum met in [...] Neuro: No obvious focal deficit LABS WBC 9.4 Hgb 14.2 plt 240 PSA 8.1 ASSESSMENT/PLAN 1. Prostate cancer. Tolerated treatment well. PSA decreasing. Will repeat Lupron in 2 months. Off of Casodex. 2. RLL nodule. Unable to biopsy b/o the location. Can't r/o lung cancer. Will repeat CT in 2 monthsfor further evaluation. 3. Will start him on Xgeva for bone mets today. Patient will follow-up with me in 4 weeks. René Blood MD [facility] Oncology and Hematology [facility] documented in this encounter Plan of Treatment Upcoming Encounters Date Type Department Care Team (Late st Contact Info) Description 12/13/2024 9:45 AM LIBRARIAN SPECIAL COLLECTIONS Office Visit [facility] Oncology and Hematology [facility] [address] [facility] 200 [place] [address] Glenn Al MD 2[address] [facility] [address] [place] [address] documented as of this encounter Visit Diagnoses Diagnosis Cancer, metastatic to bone- Primary Secondary malignant neoplasm of bone and bone marrow Prostate cancer Malignant neoplasm of prostate documented in this encounter Care Teams Manager Of Finance Relationship Specialty Start Date End Date Ilan Whitley DO [address] [place] [address] PCP - General 09/07/09 07/31/20 documented as of this encounter
--- OUTSIDE RECORDS SUMMARY | 2024-10-30 02:32 | XMS_ITS | Encounter Summary ---
Author Organization [facility] Address [address] [place] [address] Care Team Providers Care Potter Or Ceramic Artist Name Role Phone Ilan Whitley Merry Primary Care Provider Reason for Referral * Outpatient Services (Routine) - Closed Specialty Diagnoses / Procedures Referred By Contarmani t Referred To Contact Radiology Diagnoses Cancer, metastatic to bone Procedures CT CHEST W CONTRAST Kailyn Blood MD [address] [facility] [address] [place] [address] [place] [address] Referral ID Status Reason Start Date Expiration Date V isits Requested Visits Authorized [id number] Closed [facility] CTS 05/02/2020 08/02/2020 1 1 Reason for Visit * Reason Comments Follow Up FOLLOW UP,LABS Encounter Details Date Type Department Care Team (Late st Contact Info) Description 05/02/2020 11:05 AM CDT Office Visit [facility] ONCOLOGY AND HEMATOLOGY - [place] [address] [facility] [address] [place] [address] Kailyn Blood MD [address] [facility] [address] [place] [address] Cancer, metastatic to bone (Primary Dx) [...] have Coronavirus / COVID-19? No / Unsure 05/02/2020 10:26 AM CDT documented as of this encounter Last Filed Vital Signs Vital Sign Reading Time Taken Comments Blood Pressure 118/70 05/02/2020 11:11 AM CDT Pulse 73 05/02/2020 11:11 AM CDT Temperature 36.6 ??C (97.8 ??F) 05/02/2020 11:11 AM C DT Respiratory Rate - - Oxygen Saturation - - Inhaled Oxygen Concentration - - Weight 69.9 kg (154 lb) 05/02/2020 11:11 AM CDT Height 167.6 cm (5' 6 ) 05/02/2020 11:11 AM CDT Body Mass Index 24.86 05/02/2020 11:11 AM CDT documented in this encounter Progress Notes * Kailyn Blood MD - 05/02/2020 11:15 AM CDT Hematology Oncology Follow up DIAGNOSIS Metastatic prostate cancer, Mclean score 8, with right acetabulum met in [...] obvious focal deficit LABS WBC 7.7 Hgb 13.7 plt 246 PSA <0.1 ASSESSMENT/PLAN 1. Prostate cancer. Tolerated treatment well. PSA remains less than 0.1. Continue Lupron in 6 weeks. 2. RLL nodule. Unable to biopsy b/o the location. Will repeat CT in June to monitor it. 3. Will continue Xgeva for bone mets today. Patient will follow-up with me in 6 weeks. René Blood MD [facility] Oncology and Hematology [facility] documented in this encounter Plan of Treatment Upcoming Encounters Date Type Department Care Team (Late st Contact Info) Description 12/13/2024 9:45 AM FORM MAKER Office Visit [facility] Oncology and Hematology - [place] [address] [facility] [address] [place] [address] Glenn Al MD [address] [facility] [address] [place] [address] documented as of this encounter Results * CT CHEST W CONTRAST (06/19/2020 10:55 AM CDT) Anatomical Region Laterality Modality Chest Computed Tomogra phy 06/19/2020 10:5 6 AM CDT Impressions 06/19/2020 11:57 AM CDT IMPRESSION: 1. The right lower lobe pulmonary nodule has markedly decreased in size. 2. Other 2 tiny pulmonary nodules in the right middle lobe and left lower lobe. 3. The ascending thoracic aortic aneurysm. DICTATION LOCATION: Location 4 Narrative 06/19/2020 11:[address] chest with contrast 06/19/2020. HISTORY: Lung [...] cm. The visualized bony structures are intact. Procedure Note Jeannie Hernandez MD - 06/19/2020 CT chest with contrast 06/19/2020. HISTORY: Lung [...] cm. The visualized bony structures are intact. IMPRESSION: 1. The right lower lobe pulmonary nodule has markedly decreased in size. 2. Other 2 tiny pulmonary nodules in the right middle lobe and left lower lobe. 3. The ascending thoracic aortic aneurysm. DICTATION LOCATION: Location [address] ORDERABLES documented in this encounter Visit Diagnoses Diagnosis Cancer, metastatic to bone- Primary Secondary malignant neoplasm of bone and bone marrow Cancer, metastatic to bone Secondary malignant neoplasm of bone and bone marrow documented in this encounter Care Teams Potter Or Ceramic Artist Relationship Specialty Start Date End Date Ilan Whitley DO [address] [place] [address] PCP - General 09/07/09 07/31/20 documented as of this encounter
--- OUTSIDE RECORDS SUMMARY | 2024-10-30 02:32 | XMS_ITS | Encounter Summary ---
Author Organization [facility] Address [address] [place] [address] Care Team Providers Care Grinder Machine Setter Name Role Phone Gutierrez Ilan Sousa Primary Care Provider Reason for Visit * Tx/Med Therapy Plan Auth (Routine) - Closed Specialty Diagnoses / Procedures Referred By Cecile t Referred To Contact Diagnoses Prostate cancer Cancer, metastatic to bone Procedures [place] LEUPROLIDE ACETATE SUSPNSION DE DENOSUMAB INJECTION Kailyn Edmond MD [address] [facility] [place] [address] [facility] 3rd Floor [place] [address] [facility] [place] [address] Referral ID Status Reason Start Date Expiration Date Visits Re quested Visits Authorized [id number] Closed 12/12/2020 11/01/2021 99 99 Encounter Details Date Type Department Care Team (Latest Contact Info) Description 05/02/2020 11:24 AM CDT - 05/02/2020 11:59 PM CDT Hospital Encounter [facility] [place] [facility] Infusion Center 3rd Fl [address] [facility] [place] [address] Kailyn Blood MD [address] [facility] [place] [address] Injection 3, [place] Discharge Disposition: Home or Self Care [...] BY MOUTH DAILY 30 Tablet 12/14/2019 08/01/2020 documented as of this encounter Progress Notes * Eve Prescott RN - 05/02/2020 11:30 AM CDT Ilan Mccauley admitted to infusion [...] st Contact Info) Description 12/13/2024 9:45 AM RAND TACKER Office Visit [facility] Oncology and Hematology - [place] [address] [facility] 200 [place] [address] Glenn Al MD [address] [facility] [address] [place] [address] documented as of this encounter [...] subCUT, ONE TIME ONLY, 1 dose, On Thu05/02/20 at 1130, Routine Given 05/02/2020 11:38 AM CDT 120 mg Arm, Right Upper documented in this encounter Care Teams Grinder Machine Setter Relationship Specialty Start Date End Date Ilan Wihtley DO [address] [place] [address] PCP - General 09/07/09 07/31/20 documented as of this encounter
--- OUTSIDE RECORDS SUMMARY | 2024-10-30 02:32 | XMS_ITS | Encounter Summary ---
Author Organization [facility] Address [address] [place] [address] Care Team Providers Care Broodmare Foreman Name Role Phone Ilan Whitley DO Primary Care Provider Reason for Visit * Reason Comments Follow Up Nurse Navigation Encounter Details Date Type Department Care Team (Late st Contact Info) Description 02/27/2020 Chart Note [facility] Oncology Patient Navigation [address] [place] [address] Nora Milligan, RN Follow Up (Nurse Navigation) [...] Progress Notes * Nora Goode RN - 02/27/2020 11:33 AM CDT Spoke with patient today who complains of cough and increase mucus for the last month. Patient has fears with unknown lung mass being monitored. Left detailed message with triage 02/27/2020 who returned patients call and informed pt of further instructions Nora Goode, JORGE ALBERTO, BSN Oncology Nurse Navigator documented in this encounter Plan of Treatment Upcoming Encounters Date Type Department Care Team (Late st Contact Info) Description 12/13/2024 9:45 AM INTERNAL RECRUITER Office Visit [facility] Oncology and Hematology - [place] [address] [facility] [address] [place] [address] Glenn Al MD [address] [facility] [address] [place] [address] documented as of this encounter Visit Diagnoses Not on filedocumented in this encounter Care Teams Broodmare Foreman Relationship Specialty Start Date End Date Ilan Whitley DO [address] [place] [address] PCP - General 09/07/09 07/31/20 documented as of this encounter
--- OUTSIDE RECORDS SUMMARY | 2024-10-30 02:32 | XMS_ITS | Encounter Summary ---
Author Organization [facility] Address [address] [place] [address] Care Team Providers Care Director Enterprise Sales Name Role Phone Gutierrez Ilan Sousa Primary Care Provider Reason for Visit * Tx/Med Therapy Plan Auth (Routine) - Closed Specialty Diagnoses / Procedures Referred By Cecile t Referred To Contact Diagnoses Prostate cancer Cancer, metastatic to bone Procedures CO LEUPROLIDE ACETATE SUSPNSION CO DENOSUMAB INJECTION Kailyn Edmond MD [address] [facility] [place] [address] [facility] 3rd Floor [place] [address] [facility] [place] [address] Referral ID Status Reason Start Date Expiration Date Visits Re quested Visits Authorized [id number] Closed 12/12/2020 11/01/2021 99 99 Encounter Details Date Type Department Care Team (Latest Contact Info) Description 03/22/2020 11:30 AM CDT - 03/22/2020 11:59 PM CDT Hospital Encounter [facility] [place] [facility] 3rd Fl [address] [facility] [place] [address] Kailyn Blood MD [address] [facility] [place] [address] Injection 2, [place] Discharge Disposition: [...] have Coronavirus / COVID-19? No / Unsure 03/22/2020 10:37 AM CDT documented as of this encounter Medications at Time of Discharge Medication Sig Dispensed Refills Start Date End Date amLODIPine (NORVASC) 5 mg tablet Take 2.5 mg by mouth daily. bicalutamide (CASODEX) 50 mg Tablet TAKE 1 TABLET(50 MG) BY MOUTH DAILY 30 Tablet 12/14/2019 08/01/2020 documented as of this encounter Progress Notes * Dora Angulo RN - 03/22/2020 12:30 PM CDT Pt admitted to infusion center for Eligard injection. Pt demonstrates understanding of medication and possible side effects. Tolerated injection without problem. Instructed pt to notify physician or go to ED if there are any changes in their condition. Verbalized understanding. Discharged home. Ilan Mccauley admitted to infusion center for [...] st Contact Info) Description 12/13/2024 9:45 AM PERMANENT MOLD SUPERVISOR Office Visit [facility] Oncology and Hematology - [place] [address] [facility] [address] [place] [address] Glenn Al MD [address] [facility] [address] [place] [address] documented as of this encounter [...] subCUT, ONE TIME ONLY, 1 dose, On [place] 03/22/20 at 1200, Routine Given 03/22/2020 12:08 PM CDT 120 mg Arm, Right Upper leuprolide acetate (ELIGARD) 3 month subcut syringe 22.5 mg 22.5 mg, subCUT, ONE TIME ONLY, 1 dose, On [place] 03/22/20 at 1200, Routine Given 03/22/2020 12:10 PM CDT 22.5 mg Abdomen, Right Lower Quadrant documented in this encounter Care Teams Director Enterprise Sales Relationship Specialty Start Date End Date Ilan Whitley DO [address] [facility] [address] [place] [address] PCP - General 09/07/09 07/31/20 documented as of this encounter
--- OUTSIDE RECORDS SUMMARY | 2024-10-30 02:32 | XMS_ITS | Encounter Summary ---
[facility] Organization [facility] Address [address] [place] [address] Care Team Providers Care Warp Dyeing Tender Name Role Phone GutierrezIlan Primary Care Provider Reason for Visit * Auth/Cert Specialty Diagnoses / Procedures Referred By Cecile t Referred To Contact Laboratory [facility] [place] [address], [address] [place] [address] Referral ID Status Reason Start Date Expiration Date Visits Re quested Visits Authorized [id number] 1 1 Encounter Details Date Type Department Care Team (Latest Contact Info) Description 02/16/2020 11:04 AM CDT - 02/16/2020 11:59 PM CDT Hospital Encounter [facility] [place] [facility] [address] [place] [address] Kailyn Blood MD [address] [place] [address] Injection 2, [place] Discharge Disposition: [...] as of this encounter Progress Notes * Susie Cid RN - 02/16/2020 11:30 AM CDT Ilan Mccauley admitted to [...] st Contact Info) Description 12/13/2024 9:45 AM RETAIL SPECIALIST Office Visit [facility] Oncology and Hematology [facility] [address] [facility] [address] [place] [address] Glenn Al MD [address] [facility] [address] [place] [address] documented as of this encounter [...] ONE TIME ONLY, 1 dose, On [place] 02/16/20 at 1115, Routine Given 02/16/2020 11:09 AM CDT 120 mg Arm, Right documented in this encounter Care Teams Warp Dyeing Tender Relationship Specialty Start Date End Date Schoenwalder, Ilan S, DO [address] [facility] [address] [place] [address] PCP - General 09/07/09 07/31/20 documented as of this encounter
--- OUTSIDE RECORDS SUMMARY | 2024-10-30 02:32 | XMS_ITS | Encounter Summary ---
Author Organization [facility] Address [address] [place] [address] Care Team Providers Care Product Info Specialist Name Role Phone GutierrezIlan DO Primary Care Provider Reason for Visit * Reason Onset Date Comments Cough 03/01/2020 Encounter Details Date Type Department Care Team (Late st Contact Info) Description 03/01/2020 Telephone [facility] ONCOLOGY AND HEMATOLOGY - [place] [address] [facility] [address] [place] [address] Kailyn Blood MD [address] [facility] [address] [place] [address] Cough Social History Tobacco Use Types [...] Telephone Encounter - Susie Aldana RN - 03/01/2020 5:46 PM CDT Asking for something for the cough. He will not take any med OTC does not feel it is helpful. Dr Landerosfied documented in this encounter Plan of Treatment Upcoming Encounters Date Type Department Care Team (Late st Contact Info) Description 12/13/2024 9:45 AM LOG HAUL OPERATOR Office Visit [facility] Oncology and Hematology - [place] [address] [facility] [address] [place] [address] Glenn Al MD [address] [facility] [address] [place] [address] documented as of this encounter Visit Diagnoses Not on filedocumented in this encounter Care Teams Product Info Specialist Relationship Specialty Start Date End Date Ilan Whitley DO [address] [place] [phone] PCP - General 09/07/09 07/31/20 documented as of this encounter
--- OUTSIDE RECORDS SUMMARY | 2024-10-30 02:32 | XMS_ITS | Encounter Summary ---
Author Organization [facility] Address [address] [place] [address] Care Team Providers Care Family Intervention Specialist Name Role Phone GutierrezIlan Primary Care Provider Reason for Visit * Auth/Cert Specialty Diagnoses / Procedures Referred By Cecile t Referred To Contact Laboratory [facility] [address] [place] [address] [place] [address] Referral ID Status Reason Start Date Expiration Date Visits Re quested Visits Authorized [id number] 1 1 Encounter Details Date Type Department Care Team (Latest Contact Info) Description 02/16/2020 10:20 AM CDT - 02/16/2020 11:59 PM CDT Hospital Encounter [facility] Laboratory Services [facility] [address] [facility] [address] [place] [address] Kailyn Blood MD [address] [place] [address] Discharge Disposition: Home or Self [...] daily. 03/22/2020 documented as of this encounter Plan of Treatment Upcoming Encounters Date Type Department Care Team (Late st Contact Info) Description 12/13/2024 9:45 AM PIPELINE TECHNICIAN Office Visit [facility] Oncology and Hematology [facility] [address] [facility] [address] [place] [address] Glenn Al MD [address] [facility] [address] [place] [address] documented as of this encounter Procedures Procedure Name Priority Date/Time Associated Diagnosis Comments CBC WITH DIFFERENTIAL Routine 02/16/2020 10:31 AM CDT Prostate cancer PSA Routine 02/16/2020 10:31 AM CDT Prostate cancer COMPREHENSIVE METABOLIC PANEL Routine 02/16/2020 10:31 AM CDT Prostate cancer documented in this encounter Results * (ABNORMAL) CBC WITH DIFFERENTIAL (02/16/2020 10:31 AM CDT) WBC 8.5 4.0 - 9.8 K/uL 02/16/2020 10:44 AM CDT [facility] RBC 4.29(L) 4.50 - 5.40 M/uL 02/16/2020 10:44 AM CDT [facility] HEMOGLOBIN 14.1 13.6 - 16.5 g/dL 02/16/2020 10:44 AM CDT [facility] HEMATOCRIT 41.3 40.0 - 48.0 % 02/16/2020 10:[address] [facility] MCV 96.3 82.0 - 99.0 fL 02/16/2020 10:44 AM CDT [facility] MCH 32.9(H) 27.2 - 32.6 pg 02/16/2020 10:44 AM CDT [facility] MCHC 34.1 31.5 - 35.5 g/dL 02/16/2020 10:44 AM CDT [facility] RDW 12.9 11.5 - 14.5 % 02/16/2020 10:44 AM CDT [facility] RDW-STDEV 45.8 37.1 - 48.7 fL 02/16/2020 10:44 AM CDT [facility] PLATELETS 259 140 - 350 K/uL 02/16/2020 10:44 AM CDT [facility] MPV 10.0 9.3 - 12.4 fL 02/16/2020 10:44 AM CDT [facility] [place] NEUTROPHILS 52 % 02/16/2020 10:44 AM CDT [facility] [place] LYMPHOCYTES 34 % 02/16/2020 10:44 AM CDT [facility] [place] MONOCYTES 9 % 02/16/2020 10:44 AM CDT [facility] [place] EOSINOPHILS 5 % 02/16/2020 10:44 AM CDT [facility] [place] BASOPHILS 1 % 02/16/2020 10:44 AM CDT [facility] - . [place] IMMATURE GRANULOCYTES 0 % 02/16/2020 10:44 AM CDT [facility] . [place] NEUTROPHIL ABSOLUTE 4.40 1.90 - 7.00 K/uL 02/16/2020 10:44 AM CDT [facility] [place] LYMPHOCYTE ABSOLUTE 2.85 0.70 - 4.50 K/uL 02/16/2020 10:44 AM CDT [facility] . [place] MONOCYTE ABSOLUTE 0.77 0.10 - 1.30 K/uL 02/16/2020 10:44 AM CDT [facility] . [place] EOSINOPHIL ABSOLUTE 0.38 0.00 - 0.70 K/uL 02/16/2020 10:44 AM CDT [facility] . [place] BASOPHILS ABSOLUTE 0.05 0.00 - 0.20 K/uL 02/16/2020 10:44 AM CDT [facility] - [facility] IMMATURE GRANULOCYTES ABSOLUTE 0.03 0.00 - 0.03 K/uL 02/16/2020 10:44 AM CDT [facility] - . [facility] Blood Venipuncture / Unknown 02/16/2020 10:31 AM CDT 02/16/2020 10:39 AM CDT Kailyn Blood MD HEMATOLOGY ORDERABLE S [facility] CLIA# [id number] [address] [facility] [place] [place] [address] * COMPREHENSIVE METABOLIC PANEL (02/16/2020 10:31 AM CDT) SODIUM 138 136 - 145 mmol/L 02/16/2020 11:21 AM T [facility] POTASSIUM 3.9 3.5 - 5.0 mmol/L 02/16/2020 11:21 AM T [facility] CHLORIDE 101 98 - 107 mmol/L 02/16/2020 11:21 AM T [facility] - . [facility] CO2 26 22 - 29 mmol/L 02/16/2020 11:21 AM T [facility] - . [facility] CALCIUM 9.4 8.6 - 10.2 mg/dL 02/16/2020 11:21 AM T [facility] - . [place] BUN 16 8 - 23 mg/dL 02/16/2020 11:21 AM CDT [facility] - . [facility] CREATININE 0.71 0.67 - 1.17 mg/dL 02/16/2020 11:21 AM T [facility] - . [facility] Comment:The GFR result is no t clinically significant on patients <18 or >70 years of age. GLUCOSE 99 74 - 99 mg/dL 02/16/2020 11:21 AM CDT [facility] - . [facility] TOTAL PROTEIN 7.6 6.7 - 8.6 g/dL 02/16/2020 11:21 AM CDT [facility] . [facility] ALBUMIN 4.8 3.5 - 5.2 g/dL 02/16/2020 11:21 AM [facility] BILIRUBIN TOTAL 0.4 0.2 - 1.1 mg/dL 02/16/2020 11:21 AM [facility] ALKALINE PHOSPHATASE 104 40 - 129 U/L 02/16/2020 11:21 AM [facility] AST 26 <41 U/L 02/16/2020 11:21 AM [facility] ALT 24 <42 U/L 02/16/2020 11:21 AM [facility] GFR >60 mL/min/1.7 3 sq meter 02/16/2020 11:21 AM [facility] Comment: eGFR has not been [...] result. GFR, >60 mL/min/1.7 3 sq meter 02/16/2020 11:21 AM [facility] ANION GAP 11 8 - 16 mmol/L 02/16/2020 11:21 AM [facility] Blood Venipuncture / Unknown 02/16/2020 10:31 AM CDT 02/16/2020 10:43 AM CDT Narrative [facility] - 02/16/2020 11:21 AM CDT Samples containing indocyanine green cause interferences on Total and/or Direct Bilirubin and must not be measured. Kailyn Blood MD CHEMISTRY ORDERABLES [facility] CLIA# [id number] [address] [facility] [place] [address] * PSA (02/16/2020 10:31 AM CDT) PSA <0.1 <4.0 ng/mL 02/16/2020 11:26 AM CDT [facility] Blood Venipuncture / Unknown 02/16/2020 10:31 AM CDT 02/16/2020 10:43 AM CDT Narrative [facility] - 02/16/2020 11:26 AM CDT The concentration of PSA in a given specimen, as determined by assays from different manufacturers, can vary because of differences in assay methods and reagent specificity. Values obtained with different assay methods cannot be used interchangeably. The testing method in use is the WILLIAM Electrochemiluminescence Immunoassay. Kailyn Blood MD CHEMISTRY [facility]ABLES [id number] 5 [address] [place] [address] documented in this encounter Visit Diagnoses Diagnosis Prostate cancer Malignant neoplasm of prostate documented in this encounter Care Teams Family Intervention Specialist Relationship Specialty Start Date End Date Ilan Whitley DO [address] [facility] [address] [place] [address] PCP - General 09/07/09 07/31/20 documented as of this encounter
--- OUTSIDE RECORDS SUMMARY | 2024-10-30 02:32 | XMS_ITS | Encounter Summary ---
Author Organization [facility] Address [address] [place] [address] Care Team Providers Care Nail Mill Worker Name Role Phone Anirudh Craft MD Primary Care Provider Reason for Visit * Auth/Cert Specialty Diagnoses / Procedures Referred By Contarmani t Referred To Contact Laboratory [facility] [address] [facility] [place] [address] [place] [address] Referral ID Status Reason Start Date Expiration Date Visits Re quested Visits Authorized [id number] 1 1 Encounter Details Date Type Department Care Team (Latest Contact Info) Description 10/29/2020 2:40 PM MULTIMEDIA MANAGER - 10/29/2020 11:59 PM [facility] Hospital Encounter [facility] Laboratory Services Vinicio Fleming [facility] [address] [facility], [facility] [address] [place] [address] Kailyn Blood MD [address] [facility] [address] [place] [address] Discharge Disposition: Home or Self [...] have Coronavirus / COVID-19? No / Unsure 10/29/2020 2:38 PM MULTIMEDIA MANAGER documented as of this encounter Medications at [...] st Contact Info) Description 12/13/2024 9:45 AM MULTIMEDIA MANAGER Office Visit [facility] Oncology and Hematology - [place] [address] [facility] [address] [place] [address] Glenn Al MD [address] [facility] [address] [place] [address] documented as of this encounter Procedures Procedure Name Priority Date/Time Associated Diagnosis Comments CBC WITH DIFFERENTIAL Routine 10/29/2020 2:45 PM MULTIMEDIA MANAGER Prostate cancer PSA Routine 10/29/2020 2:45 PM MULTIMEDIA MANAGER Prostate cancer COMPREHENSIVE METABOLIC PANEL Routine 10/29/2020 2:45 PM MULTIMEDIA MANAGER Prostate cancer documented in this encounter Results * PSA (10/29/2020 2:45 PM MULTIMEDIA MANAGER) PSA <0.1 <4.0 ng/mL 10/29/2020 4:08 PM MULTIMEDIA MANAGER [facility] Blood Venipuncture / Unknown 10/29/2020 2:45 PM MULTIMEDIA MANAGER 10/29/2020 2:56 PM MULTIMEDIA MANAGER Narrative [facility] - 10/29/2020 4:08 PM MULTIMEDIA MANAGER The concentration of PSA in a given specimen, as determined by assays from different manufacturers, can vary because of differences in assay methods and reagent specificity. Values obtained with different assay methods cannot be used interchangeably. The testing method in use is the WILLIAM Electrochemiluminescence Immunoassay. Kailyn Blood MD CHEMISTRY ORDERABLES [employer] [facility] - [facility] CLIA# [id number] [place] [address] * (ABNORMAL) COMPREHENSIVE METABOLIC PANEL (10/29/2020 2:45 PM MULTIMEDIA MANAGER) SODIUM 145 136 - 145 mmol/L 10/29/2020 4:08 PM [facility] [facility] - . [place] POTASSIUM 4.3 3.5 - 5.0 mmol/L 10/29/2020 4:08 PM [facility] [employer] LABORATORY SERVICES - . [place] CHLORIDE 106 98 - 107 mmol/L 10/29/2020 4:08 PM [facility] [employer] [facility]ORY [facility] - . [place] CO2 28 22 - 29 mmol/L 10/29/2020 4:08 PM [facility] [employer] LABORATORY [facility] CALCIUM 9.3 8.6 - 10.2 mg/dL 10/29/2020 4:08 PM [facility] [employer] LABORATORY SERVICES [facility]. [place] BUN 20 8 - 23 mg/dL 10/29/2020 4:08 PM [facility] [employer] LABORATORY [facility] CREATININE 0.71 0.67 - 1.17 mg/dL 10/29/2020 4:08 PM [facility] [employer] LABORATORY SERVICES - . [facility] Comment:The GFR result is no t clinically significant on patients <18 or >70 years of age. GLUCOSE 96 74 - 99 mg/dL 10/29/2020 4:08 PM [facility] [employer] LABORATORY SERVICES [facility]. [facility] TOTAL PROTEIN 7.0 6.7 - 8.6 g/dL 10/29/2020 4:08 PM [facility] [employer] LABORATORY [facility] ALBUMIN 4.5 3.5 - 5.2 g/dL 10/29/2020 4:08 PM [facility] [employer] LABORATORY SERVICES - . [facility] BILIRUBIN TOTAL <0.2(L) 0.2 - 1.1 mg/dL 10/29/2020 4:08 PM [facility] [employer] LABORATORY [facility] ALKALINE PHOSPHATASE 53 40 - 129 U/L 10/29/2020 4:08 PM [facility] [employer] LABORATORY SERVICES [facility]. [facility] AST 28 <41 U/L 10/29/2020 4:08 PM [facility] [employer] LABORATORY SERVICES [facility]. [facility] ALT 24 <42 U/L 10/29/2020 4:08 PM [facility] [employer] [facility] GFR >60 mL/min/1.7 3 sq meter 10/29/2020 4:08 PM [facility] [employer] [facility] Comment: eGFR has not been validated for [...] result. GFR, >60 mL/min/1.7 3 sq meter 10/29/2020 4:[address] [facility] ANION GAP 11 8 - 16 mmol/L 10/29/2020 4:08 PM [facility] [employer] [facility] Blood Venipuncture / Unknown 10/29/2020 2:45 PM MULTIMEDIA MANAGER 10/29/2020 2:56 PM MULTIMEDIA MANAGER [facility] - 10/29/2020 4:08 PM MULTIMEDIA MANAGER Samples containing indocyanine green cause interferences on Total and/or Direct Bilirubin and must not be measured. Kailyn Blood MD CHEMISTRY ORDERABLES [facility]# [id number] [address] [facility] [place] [address] * (ABNORMAL) CBC WITH DIFFERENTIAL (10/29/2020 2:45 PM MULTIMEDIA MANAGER) WBC 8.9 4.0 - 9.8 K/uL 10/29/2020 2:52 PM [facility] [employer] [facility] RBC 4.28(L) 4.50 - 5.40 M/uL 10/29/2020 2:52 PM [facility] [employer] [facility] HEMOGLOBIN 14.2 13.6 - 16.5 g/dL 10/29/2020 2:52 PM [facility] [employer] SERVICES - [facility] HEMATOCRIT 43.4 40.0 - 48.0 % 10/29/2020 2:52 PM MULTIMEDIA MANAGER [facility] - [facility] MCV 101.4(H) 82.0 - 99.0 fL 10/29/2020 2:52 PM MULTIMEDIA MANAGER [employer] [facility] - [facility] MCH 33.2(H) 27.2 - 32.6 pg 10/29/2020 2:52 PM MULTIMEDIA MANAGER [facility] - [facility] MCHC 32.7 31.5 - 35.5 g/dL 10/29/2020 2:52 PM MULTIMEDIA MANAGER [facility] - [facility] RDW 12.3 11.5 - 14.5 % 10/29/2020 2:52 PM MULTIMEDIA MANAGER [facility] - [facility] RDW-STDEV 46.4 37.1 - 48.7 fL 10/29/2020 2:52 PM MULTIMEDIA MANAGER [facility] - [facility] PLATELETS 230 140 - 350 K/uL 10/29/2020 2:52 PM MULTIMEDIA MANAGER [facility] - [facility] MPV 10.4 9.3 - 12.4 fL 10/29/2020 2:52 PM MULTIMEDIA MANAGER [facility] - [facility] NEUTROPHILS 38 % 10/29/2020 2:52 PM MULTIMEDIA MANAGER [facility] - . [facility] LYMPHOCYTES 44 % 10/29/2020 2:52 PM MULTIMEDIA MANAGER [facility] - . [place] MONOCYTES 10 % 10/29/2020 2:52 PM MULTIMEDIA MANAGER [facility] - . [facility] EOSINOPHILS 8 % 10/29/2020 2:52 PM MULTIMEDIA MANAGER [facility] - [facility] BASOPHILS 0 % 10/29/2020 2:52 PM MULTIMEDIA MANAGER [facility] - . [facility] IMMATURE GRANULOCYTES 0 % 10/29/2020 2:52 PM MULTIMEDIA MANAGER [facility] - . [facility] NEUTROPHIL ABSOLUTE 3.39 1.90 - 7.00 K/uL 10/29/2020 2:52 PM MULTIMEDIA MANAGER [employer] - . [facility] LYMPHOCYTE ABSOLUTE 3.93 0.70 - 4.50 K/uL 10/29/2020 2:52 PM MULTIMEDIA MANAGER [employer] - . [facility] MONOCYTE ABSOLUTE 0.85 0.10 - 1.30 K/uL 10/29/2020 2:52 PM MULTIMEDIA MANAGER [facility] - . [facility] EOSINOPHIL ABSOLUTE 0.68 0.00 - 0.70 K/uL 10/29/2020 2:52 PM MULTIMEDIA MANAGER [facility] - [facility] BASOPHILS ABSOLUTE 0.04 0.00 - 0.20 K/uL 10/29/2020 2:52 PM MULTIMEDIA MANAGER [facility] LABORATORY SERVICES - . [facility] IMMATURE GRANULOCYTES ABSOLUTE 0.02 0.00 - 0.03 K/uL 10/29/2020 2:52 PM MULTIMEDIA MANAGER [facility] LABORATORY [facility] - [facility] Blood Venipuncture / Unknown 10/29/2020 2:45 PM MULTIMEDIA MANAGER 10/29/2020 2:50 PM MULTIMEDIA MANAGER Kailyn Blood MD HEMATOLOGY ORDERABLE S [facility] LABORATORY SERVICES [facility] CLIA# [id number] [address] [place] [address] documented in this encounter Visit Diagnoses Diagnosis Prostate cancer Malignant neoplasm of prostate documented in this encounter Care Teams Nail Mill Worker Relationship Specialty Start Date End Date Anirudh Craft MD [address] [address] PCP - General Internal Medicine 08/01/20 09/19/24 documented as of this encounter
--- OUTSIDE RECORDS SUMMARY | 2024-10-30 02:32 | XMS_ITS | Encounter Summary ---
Author Organization [facility] Address [address] [place] [address] Care Team Providers Care Engineering Executive Name Role Phone Gutierrez Ilan Sousa Primary Care Provider Reason for Referral * Outpatient Services (Routine) - Closed Specialty Diagnoses / Procedures Referred By Cecile yan Referred To Contact Radiology Diagnoses Cancer, metastatic to bone Procedures CT CHEST W CONTRAST Kailyn Blood MD [address] [place] [address] [place] [address] Referral ID Status Reason Start Date Expiration Date V isits Requested Visits Authorized [id number] Closed [facility] CTS 05/02/2020 08/02/2020 1 1 Reason for Visit * Outpatient Services (Routine) - Closed Specialty Diagnoses / Procedures Referred By Cecile yan Referred To Contact Radiology Diagnoses Cancer, metastatic to bone Procedures CT CHEST W CONTRAST Kailyn Blood MD [address] [place] [address] [place] [address] Referral ID Status Reason Start Date Expiration Date V isits Requested Visits Authorized [id number] Closed [facility] CTS 05/02/2020 08/02/2020 1 1 Encounter Details Date Type Department Care Team (Latest Contact Info) Description 06/19/2020 10:31 AM CDT - 06/19/2020 11:59 PM CDT Hospital Encounter [facility] CT Scan S [facility] [address] [place] [address] Kailyn Blood MD [address] [place] [address] Discharge Disposition: Home or Self [...] have Coronavirus / COVID-19? No / Unsure 06/19/2020 10:29 AM CDT documented as of this encounter Medications at Time of Discharge Medication Sig Dispensed Refills Start Date End Date amLODIPine (NORVASC) 5 mg tablet Take 2.5 mg by mouth daily. bicalutamide (CASODEX) 50 mg Tablet TAKE 1 TABLET(50 MG) BY MOUTH DAILY 30 Tablet 12/14/2019 08/01/2020 documented as of this encounter Miscellaneous Notes * Treatment Plan - Amrita Skelton RN - 06/19/2020 10:40 AM CDT Images from the original note were not included. ?04/2020[facility] Adult IV Flush Protocol [facility] Approved by: [facility] - Medical Executive Committee Approval Date: 04/02/2020 ORDERS ARE ENTERED ???PER PROTOCOL?? Enter the protocol in the patient's electronic health record using smartphrase: .adultivflushprotocol NURSING ORDERS Ok to utilize existing central venous access (example: Implanted Port, PICC) unless otherwise directed by provider. (Exclusion: Hemodialysis line may not be accessed without order from provider) Local Anesthetic for IV Initiation Panel (18 and over) ORDER SET Local Anesthetic for use to initiate IV (orders to discontinue 24 hours from initiation) ; Lidocaine 1% 0.3mL intradermal ONE TIME to numb area of IV catheter insertion or port access PRN ; Lidocaine 4% (L.M.X.4) applied topically ONE TIME 15 minutes prior to IV catheter insertion PRN Peripheral IV (Peripheral and Midline catheter) Flush Panel (18 yr and over) ORDER SET ; Line care and maintenance o Sodium chloride 0.9% (normal saline) flush 5 mL every 12 hours when locked o Sodium chloride 0.9% (normal saline) flush 5 mL PRN before and after medication administration orto verify line patency ; Carrier fluid (select most appropriate fluid for capability with medications) o Sodium chloride 0.9% (normal saline) 250 mL carrier bag. - Infuse 25 mL at a rate of IVPB administration to flush as needed to complete the IVPB and/or may keep rate at KVO (10mL/hr) to minimize frequent line interruption. o Dextrose 5% (D5W) 250 mL carrier bag - Infuse 25 mL at a rate of IVPB administration to flush as needed to complete the IVPB and/or may keep rate at KVO (10mL/hr) to minimize frequent line interruption. Central Lines (CVC, Sheath/Introducer, 3rd lumen of Hemodialysis catheter) Flush Panel (18 yr and over) ORDER SET ; Line care and maintenance o Sodium chloride 0.9% (normal saline) flush 10mL per lumen every 12 hours when locked. o Sodium chloride 0.9% (normal saline) flush 10mL per lumen before and after medication administration or to verify line patency. ; Carrier fluid (select most appropriate fluid for capability with medications) o Sodium chloride 0.9% (normal saline) 250 mL carrier bag. - Infuse 25 mL at a rate of IVPB administration to flush as needed to complete the IVPB and/or may keep rate at KVO (10mL/hr) to minimize frequent line interruption. o Dextrose 5% (D5W) 250 mL carrier bag: carrier bag - Infuse 25 mL at a rate of IVPB administration to flush as needed to complete the IVPB and/or may keep rate at KVO (10mL/hr) to minimize frequent line interruption. Central Lines (PICC, Implanted Port) Flush Panel (18 yr and over) ORDER SET ; Line care and maintenance o Sodium chloride 0.9% (normal saline) flush 10mL per lumen AND Heparin 10 units/mL 5mL per lumen every 12 hours after normal saline flush when locked. o Sodium chloride 0.9% (normal saline) flush 10mL per lumen before and after medication administration or to verify line patency AND Heparin 10 units/mL 5 mL per lumen following normal saline flush to lock. ; Carrier fluid (select most appropriate fluid for capability with medications) o Sodium chloride 0.9% (normal saline) 250 mL carrier bag. - Infuse 25 mL at a rate of IVPB administration to flush as needed to complete the IVPB and/or may keep rate at KVO (10mL/hr) to minimize frequent line interruption. o Dextrose 5% (D5W) 250 mL carrier bag: carrier bag - Infuse 25 mL at a rate of IVPB administration to flush as needed to complete the IVPB and/or may keep rate at KVO (10mL/hr) to minimize frequent line interruption. Transducers- Hemodynamic Pressure Monitoring ??? Arterial Catheter, Pulmonary Artery Catheter, Central Venous Pressure, Intra-Aortic Balloon Pump: o Sodium chloride 0.9% (normal saline) to infuse continuously at 3mL/hr via pressure bag at 300 mmHg ??? Intra-Aortic Balloon Pump: o Heparin 2 unit/mL in normal saline to infuse continuously at 3 mL/hr via pressure bag at 300mmHg For Occluded Central Line (Adult ONCOLOGY only) ?? Alteplase (CATHFLO) Instill 2mg to affected lumen(s) to dwell in occluded lumen one time. * Treatment Plan - Amrita Skelton RN - 06/19/2020 10:40 AM CDT For any pts 50 yrs of age or older, or any one with any history of renal disease; will need a creatine/GFR results from the past [address]. Instructed pt to drink water for next 48 hrs to help flush contrast out of system. States understanding. documented in this encounter Plan of Treatment Upcoming Encounters Date Type Department Care Team (Late st Contact Info) Description 12/13/2024 9:45 AM DRESSING ROOM PORTER Office Visit [facility] Oncology and Hematology - [place] [address] [facility] [address] [place] [address] Glenn Al MD [address] [facility] [address] [place] [address] documented as of this encounter Procedures Procedure Name Priority Date/Time Associated Diagnosis Comments CT CHEST W CONTRAST Routine 06/19/2020 1 0:55 AM CDT Cancer, metastatic to bone documented in this encounter Results * CT CHEST W [...] and bone marrow documented in this encounter Administered Medications Inactive Administered Medications - up to 3 most recent administrations Medication Order MAR Action Action Date Dose Rate Site iopamidoL (ISOVUE-300) 61 % injection (drawn from multi-use bulk pack) 90 mL 90 mL, IV, INTRA-PROCEDURE ONCE, 1 dose, Starting on Tu06/19/20 at 1055, Until Tu06/19/20 at 1056, Routine Contrast Given 06/19/2020 10:56 AM CDT 90 mL sodium chloride flush injection 0-20 mL 0-20 mL, IV, SEE ADMIN INSTRUCTIONS, Starting on 06/19/20 at 1040, Until 8/18/20 at 1139, Routine Given 06/19/2020 10:46 AM CDT 10 mL sodium chloride flush injection 10 mL 10 mL, IV, EVERY 8 HOURS, First dose on Thu06/19/20 at 1300, Until Discontinued, Routine Given 06/19/2020 10:56 AM CDT 10 mL documented in this encounter Care Teams Engineering Executive Relationship Specialty Start Date End Date Ilan Whitley DO [address] [place] [address] PCP - General 09/07/09 07/31/20 documented as of this encounter
--- OUTSIDE RECORDS SUMMARY | 2024-10-30 02:32 | XMS_ITS | Encounter Summary ---
Author Organization [facility] Address [address] [place] [address] Care Team Providers Care Director Of Event Management Name Role Phone GutierrezIlan DO Primary Care Provider Encounter Details Date Type Department Care Team (Latest Contact Info) Description 06/20/2020 10:41 AM CDT - 06/20/2020 11:59 PM CDT Hospital Encounter [facility] Laboratory Services [facility] [address], [address] [place] [address] Kailyn Blood MD [address] [place] [address] Discharge Disposition: Home or Self [...] 12/14/2019 08/01/2020 documented as of this encounter Plan of Treatment Upcoming Encounters Date Type Department Care Team (Late st Contact Info) Description 12/13/2024 9:45 AM RESIDENTIAL TREATMENT COUNSELOR Office Visit [facility] Oncology and Hematology [facility] [address] [facility] [address] [place] [address] Glenn Al MD [address] [place] [address] documented as of this encounter Procedures Procedure Name Priority Date/Time Associated Diagnosis Comments CBC WITH DIFFERENTIAL Routine 06/20/2020 10:51 AM CDT Prostate cancer PSA Routine 06/20/2020 10:51 AM CDT Prostate cancer COMPREHENSIVE METABOLIC PANEL Routine 06/20/2020 10:51 AM CDT Prostate cancer documented in this encounter Results * (ABNORMAL) CBC WITH DIFFERENTIAL (06/20/2020 10:51 AM CDT) WBC 7.7 4.0 - 9.8 K/uL 06/20/2020 11:00 AM T [facility] LABORATORY SERVICES [facility] RBC 4.26(L) 4.50 - 5.40 M/uL 06/20/2020 11:00 AM T [facility] LAB[facility]ATORY SERVICES - [facility] HEMOGLOBIN 14.2 13.6 - 16.5 g/dL 06/20/2020 11:00 AM T [facility] SERVICES [facility] HEMATOCRIT 41.1 40.0 - 48.0 % 06/20/2020 11:00 AM T [facility] SERVICES [facility] MCV 96.5 82.0 - 99.0 fL 06/20/2020 11:00 AM [facility] MCH 33.3(H) 27.2 - 32.6 pg 06/20/2020 11:00 AM T [facility] LABORATORY SERVICES [facility] MCHC 34.5 31.5 - 35.5 g/dL 06/20/2020 11:00 AM CDT [facility] - [facility] RDW 12.3 11.5 - 14.5 % 06/20/2020 11:00 AM CDT [facility] LAB[facility] SERVICES - [facility] RDW-STDEV 43.8 37.1 - 48.7 fL 06/20/2020 11:00 AM CDT [facility] - [facility] PLATELETS 252 140 - 350 K/uL 06/20/2020 11:00 AM CDT [facility] - [facility] MPV 9.7 9.3 - 12.4 fL 06/20/2020 11:00 AM CDT [facility] - [facility] NEUTROPHILS 50 % 06/20/2020 11:00 AM CDT [facility] - [facility] LYMPHOCYTES 36 % 06/20/2020 11:00 AM CDT [facility] - [facility] MONOCYTES 8 % 06/20/2020 11:00 AM CDT [facility] - [facility] EOSINOPHILS 5 % 06/20/2020 11:00 AM CDT [facility] - [facility] BASOPHILS 1 % 06/20/2020 11:00 AM CDT [facility] - [facility] IMMATURE GRANULOCYTES 0 % 06/20/2020 11:00 AM CDT [facility] - [facility] NEUTROPHIL ABSOLUTE 3.87 1.90 - 7.00 K/uL 06/20/2020 11:00 AM CDT [facility] - [facility] LYMPHOCYTE ABSOLUTE 2.80 0.70 - 4.50 K/uL 06/20/2020 11:00 AM CDT [facility] - [facility] MONOCYTE ABSOLUTE 0.64 0.10 - 1.30 K/uL 06/20/2020 11:00 AM CDT [facility] - [facility] EOSINOPHIL ABSOLUTE 0.35 0.00 - 0.70 K/uL 06/20/2020 11:00 AM CDT [facility] - [facility] BASOPHILS ABSOLUTE 0.05 0.00 - 0.20 K/uL 06/20/2020 11:00 AM CDT [facility] - [facility] IMMATURE GRANULOCYTES ABSOLUTE 0.01 0.00 - 0.03 K/uL 06/20/2020 11:00 AM [facility] - [facility] Blood Venipuncture / Unknown 06/20/2020 10:51 AM CDT 06/20/2020 10:57 AM CDT Kailyn Blood MD HEMATOLOGY ORDERABLE S [facility] - [facility] CLIA# [id number] [address] [place] [address] * (ABNORMAL) COMPREHENSIVE METABOLIC PANEL (06/20/2020 10:51 AM CDT) SODIUM 137 136 - 145 mmol/L 06/20/2020 11:52 AM CDT [facility] - [facility] POTASSIUM 4.8 3.5 - 5.0 mmol/L 06/20/2020 11:52 AM CDT [facility] LABORATORY SERVICES - . [facility] CHLORIDE 98 98 - 107 mmol/L 06/20/2020 11:52 AM CDT [facility] - . [facility] CO2 27 22 - 29 mmol/L 06/20/2020 11:52 AM CDT [facility] - [facility] CALCIUM 9.4 8.6 - 10.2 mg/dL 06/20/2020 11:52 AM CDT [facility] SERVICES - . [facility] BUN 17 8 - 23 mg/dL 06/20/2020 11:52 AM CDT [facility] - . [facility] CREATININE 0.80 0.67 - 1.17 mg/dL 06/20/2020 11:52 AM CDT [facility] - . [facility] Comment:The GFR result is no t clinically significant on patients <18 or >70 years of age. GLUCOSE 100(H) 74 - 99 mg/dL 06/20/2020 11:52 AM CDT [facility] - . [facility] TOTAL PROTEIN 7.5 6.7 - 8.6 g/dL 06/20/2020 11:52 AM CDT [facility] - . [facility] ALBUMIN 4.8 3.5 - 5.2 g/dL 06/20/2020 11:52 AM CDT [facility] - . [facility] BILIRUBIN TOTAL 0.2 0.2 - 1.1 mg/dL 06/20/2020 11:52 AM CDT [facility] - [facility] ALKALINE PHOSPHATASE 55 40 - 129 U/L 06/20/2020 11:52 AM T [facility] LABORATORY [facility] AST 25 <41 U/L 06/20/2020 11:52 AM [facility] ALT 19 <42 U/L 06/20/2020 11:52 AM T [facility] LABORATORY [facility] GFR >60 mL/min/1.7 3 sq meter 06/20/2020 11:52 AM T [facility] LABORATORY [facility] Comment: eGFR has not been validated [...] result. GFR, >60 mL/min/1.7 3 sq meter 06/20/2020 11:52 AM T [facility] [employer] ANION GAP 12 8 - 16 mmol/L 06/20/2020 11:52 AM [facility] Blood Venipuncture / Unknown 06/20/2020 10:51 AM CDT 06/20/2020 10:59 AM CDT Narrative [facility] - 06/20/2020 11:52 AM CDT Samples containing indocyanine green cause interferences on Total and/or Direct Bilirubin and must not be measured. Kailyn Blood MD CHEMISTRY ORDERABLES [facility] [employer] [facility] CLIA# [id number] [address] [facility] [place] [id number] * PSA (06/20/2020 10:51 AM CDT) PSA <0.1 <4.0 ng/mL 06/20/2020 11:56 AM CDT [facility] [employer] Blood Venipuncture / Unknown 06/20/2020 10:51 AM CDT 06/20/2020 10:59 AM CDT Narrative [facility] - 06/20/2020 11:56 AM CDT The concentration of PSA in a given specimen, as determined by assays from different manufacturers, can vary because of differences in assay methods and reagent specificity. Values obtained with different assay methods cannot be used interchangeably. The testing method in use is the WILLIAM Electrochemiluminescence Immunoassay. Kailyn Blood MD CHEMISTRY ORDERABLES [facility] CLIA# [id number] [address] [place] [address] documented in this encounter Visit Diagnoses Diagnosis Prostate cancer Malignant neoplasm of prostate documented in this encounter Care Teams Director Of Event Management Relationship Specialty Start Date End Date Ilan Whitley DO [address] [place] [address] PCP - General 09/07/09 07/31/20 documented as of this encounter
--- OUTSIDE RECORDS SUMMARY | 2024-10-30 02:32 | XMS_ITS | Encounter Summary ---
Author Organization [facility] Address [address] Attn: Epic Prelude ADT [place] [address] Care Team Providers Care Crab Backer Name Role Phone Ilan Whitley DO Primary Care Provider Encounter Details Date Type Department Care Team (Latest Contact Info) Description 03/22/2020 Travel Social History Tobacco Use Types Packs/Day [...] Contact Info) Description 12/13/2024 9:45 AM HAND DRAWER IN Office Visit [facility] Oncology and Hematology - [place] [address] [facility] [address] [place] [address] Glenn Al MD [address] [place] [address] documented as of this encounter Visit Diagnoses Not on filedocumented in this encounter Care Teams Crab Backer Relationship Specialty Start Date End Date Ilan Whitley DO [address] [place] [address] PCP - General 09/07/09 07/31/20 documented as of this encounter
--- OUTSIDE RECORDS SUMMARY | 2024-10-30 02:32 | XMS_ITS | Encounter Summary ---
Author Organization [facility] Address [address] [place] [address] Care Team Providers Care Senior Materials Planner Name Role Phone Ilan Whitley DO Primary Care Provider Reason for Visit * Reason Onset Date Comments Results 01/18/2020 Encounter Details Date Type Department Care Team ([facility] Contact Info) Description 01/18/2020 Patient Outreach [facility] ONCOLOGY AND HEMATOLOGY - [place] [address] [place] [address] Kailyn Blood MD [address] [place] [address] Results Social History Tobacco Use Types [...] encounter Miscellaneous Notes * Telephone Encounter - Saima Tarango RN - 01/18/2020 3:46 PM CDT Images from the original note were not included. Kailyn Blood MD P [facility] [place] Triage ?? Please tell him that his PSA has gone down to 0.3, very good response to Attempted to contact pt twice with no answer, left message to call office back. Pt has not called back at this time. documented in this encounter Plan of Treatment Upcoming Encounters Date Type Department Care Team (Late st Contact Info) Description 12/13/2024 9:45 AM HOSPICE AIDE Office Visit [facility] Oncology and Hematology - [place] [address] [place] [address] Glenn Al MD [address] [facility] [address] [facility] [address] [place] [address] documented as of this encounter Visit Diagnoses Not on filedocumented in this encounter Care Teams Senior Materials Planner Relationship Specialty Start Date End Date Ilan Whitley DO [address] [place] [address] PCP - General 09/07/09 07/31/20 documented as of this encounter
--- OUTSIDE RECORDS SUMMARY | 2024-10-30 02:32 | XMS_ITS | Encounter Summary ---
Author Organization [facility] Address [address] [place] [address] Care Team Providers Care Manager Quantitative Name Role Phone Ilan Whitley DO Primary Care Provider Reason for Visit * Reason Comments Follow Up Nurse Navigation Encounter Details Date Type Department Care Team (Late st Contact Info) Description 02/16/2020 Chart Note [facility] Oncology Patient Navigation [address] [place] [address] Nora Milligan, RN Follow Up (Nurse Navigation) [...] of this encounter Progress Notes * Nora Goode, RN - 02/16/2020 9:24 AM CDT Follow-up patient navigation call to check on patient. Patient called asking questions in regards to his appointment today. Would like his appointment to be telehealth if possible also wants to make sure both his injection are ready for today. Left message with Triage. Will notify patient as soon as I hear back from Triage. Nora Goode, RN, BSN Oncology Nurse Navigator documented in this encounter Plan of Treatment Upcoming Encounters Date Type Department Care Team (Late st Contact Info) Description 12/13/2024 9:45 AM DOPER Office Visit [facility] Oncology and Hematology [facility] [address] [facility] [address] [place] [address] Glenn Al MD [address] [facility] [address] [place] [address] documented as of this encounter Visit Diagnoses Not on filedocumented in this encounter Care Teams Manager Quantitative Relationship Specialty Start Date End Date Ilan Whitley DO [address] [place] [address] PCP - General 09/07/09 07/31/20 documented as of this encounter
--- OUTSIDE RECORDS SUMMARY | 2024-10-30 02:32 | XMS_ITS | Encounter Summary ---
Author Organization [facility] Address [address] [place] [address] Care Team Providers Care Product Marketing Programs Manager Name Role Phone Gutierrez Ilan Sousa Primary Care Provider Reason for Visit * Tx/Med Therapy Plan Auth (Routine) - Closed Specialty Diagnoses / Procedures Referred By Cecile t Referred To Contact Diagnoses Prostate cancer Cancer, metastatic to bone Procedures VT LEUPROLIDE ACETATE SUSPNSION VT DENOSUMAB INJECTION Kailyn Edmodn MD [address] [facility] [place] [address] [facility] 3rd Floor [place] [address] [facility] [place] [address] Referral ID Status Reason Start Date Expiration Date Visits Re quested Visits Authorized [id number] Closed 12/12/2020 11/01/2021 99 99 Encounter Details Date Type Department Care Team (Latest Contact Info) Description 06/20/2020 11:46 AM CDT - 06/20/2020 11:59 PM CDT Hospital Encounter [facility] [place] [facility] 3rd Fl [address] [facility] [place] [address] Kailyn Blood MD [address] [facility] [place] [address] Injection Pod 1, [place] Discharge Disposition: Home [...] as of this encounter Progress Notes * Kellie Roa RN - 06/20/2020 12:00 PM CDT Pt admitted to infusion center for Eligard injection. Pt demonstrates understanding of medication and possible side effects. Tolerated injection without problem. Instructed pt to notify physician or go to ED if there are any changes in their condition. Verbalized understanding. Discharged home.Ilan Mccauley admitted to infusion center for Xgeva [...] st Contact Info) Description 12/13/2024 9:45 AM MAINTENANCE PIPEFITTER Office Visit [facility] Oncology and Hematology - [place] [address] [facility] [address] [place] [address] Glenn Al MD [address] [facility] [address] [place] [address] documented as of this encounter [...] subCUT, ONE TIME ONLY, 1 dose, On Thu06/20/20 at 1200, Routine Given 06/20/2020 12:04 PM CDT 120 mg Arm, Right Upper leuprolide acetate (ELIGARD) 3 month subcut syringe 22.5 mg 22.5 mg, subCUT, ONE TIME ONLY, 1 dose, On Thu06/20/20 at 1200, Routine Given 06/20/2020 12:01 PM CDT 22.5 mg Abdomen, Left Upper Quadrant documented in this encounter Care Teams Product Marketing Programs Manager Relationship Specialty Start Date End Date Ilan Whitley DO [address] [place] [address] PCP - General 09/07/09 07/31/20 documented as of this encounter
--- OUTSIDE RECORDS SUMMARY | 2024-10-30 02:32 | XMS_ITS | Encounter Summary ---
Author Organization [facility] Address [address] [place] [address] Care Team Providers Care Educational Program Assistant Name Role Phone GutierrezIlan DO Primary Care Provider Encounter Details Date Type Department Care Team (Latest Contact Info) Description 05/02/2020 10:27 AM CDT - 05/02/2020 11:59 PM CDT Hospital Encounter [facility] Laboratory Services [facility] [address] [place] [address] Kailyn Blood MD [address] [place] [address] Discharge Disposition: Home or Self [...] st Contact Info) Description 12/13/2024 9:45 AM DIRECTIONAL BORE OPERATOR Office Visit [facility] Oncology and Hematology [facility] [address] [place] [address] [place] [address] Glenn Al MD [address] [facility] [address] [place] [address] documented as of this encounter Procedures Procedure Name Priority Date/Time Associated Diagnosis Comments CBC WITH DIFFERENTIAL Routine 05/02/2020 10:38 AM CDT Prostate cancer PSA Routine 05/02/2020 10:38 AM CDT Prostate cancer COMPREHENSIVE METABOLIC PANEL Routine 05/02/2020 10:38 AM CDT Prostate cancer documented in this encounter Results * PSA (05/02/2020 10:38 AM CDT) PSA <0.1 <4.0 ng/mL 05/02/2020 11:28 AM CDT [facility] Blood Venipuncture / Unknown 05/02/2020 10:38 AM CDT 05/02/2020 10:46 AM CDT Narrative [facility] - 05/02/2020 11:28 AM CDT The concentration of PSA in a given specimen, as determined by assays from different manufacturers, can vary because of differences in assay methods and reagent specificity. Values obtained with different assay methods cannot be used interchangeably. The testing method in use is the WILLIAM Electrochemiluminescence Immunoassay. Kailyn Blood MD CHEMISTRY ORDERABLES [facility] CLIA# [id number] [address] [place] [address] * (ABNORMAL) COMPREHENSIVE METABOLIC PANEL (05/02/2020 10:38 AM CDT) [facility] SODIUM 141 136 - 145 mmol/L 05/02/2020 11:25 AM CDT [facility]ORY SERVICES - [facility] POTASSIUM 4.1 3.5 - 5.0 mmol/L 05/02/2020 11:25 AM CDT [facility] LABORATORY SERVICES - [facility] CHLORIDE 101 98 - 107 mmol/L 05/02/2020 11:25 AM CDT [facility] LAB[facility]ATORY SERVICES - . [place] CO2 26 22 - 29 mmol/L 05/02/2020 11:25 AM [employer] [facility]ORY SERVICES - [facility] CALCIUM 9.2 8.6 - 10.2 mg/dL 05/02/2020 11:25 AM [employer] [facility] LABORATORY SERVICES - . [facility] BUN 20 8 - 23 mg/dL 05/02/2020 11:25 AM [employer] [facility]ATORY SERVICES - [facility] CREATININE 0.70 0.67 - 1.17 mg/dL 05/02/2020 11:25 AM [employer] LABORATORY SERVICES - [facility] Comment:The GFR result is no t clinically significant on patients <18 or >70 years of age. GLUCOSE 107(H) 74 - 99 mg/dL 05/02/2020 11:25 AM [employer] [facility] LABORATORY SERVICES [facility] TOTAL PROTEIN 7.3 6.7 - 8.6 g/dL 05/02/2020 11:25 AM [facility]ATORY SERVICES - [facility] ALBUMIN 4.7 3.5 - 5.2 g/dL 05/02/2020 11:25 AM [employer] [facility]ATORY SERVICES - [facility] BILIRUBIN TOTAL 0.3 0.2 - 1.1 mg/dL 05/02/2020 11:25 AM [employer] LABORATORY SERVICES [facility] ALKALINE PHOSPHATASE 60 40 - 129 U/L 05/02/2020 11:25 AM [employer] [facility]ATORY SERVICES - [facility] AST 31 <41 U/L 05/02/2020 11:25 AM [employer] [facility] SERVICES [facility] ALT 26 <42 U/L 05/02/2020 11:25 AM CDT [facility] LABORATORY SERVICES [facility] GFR >60 mL/min/1.7 3 sq meter 05/02/2020 11:25 AM [facility] LABORATORY SERVICES [facility] Comment: eGFR has not been validated [...] result. GFR, >60 mL/min/1.7 3 sq meter 05/02/2020 11:25 AM CDT [facility] LABORATORY SERVICES [facility] ANION GAP 14 8 - 16 mmol/L 05/02/2020 11:25 AM T [facility] Blood Venipuncture / Unknown 05/02/2020 10:38 AM CDT 05/02/2020 10:46 AM CDT [facility] LABORATORY SERVICES - [facility] - 05/02/2020 11:25 AM CDT Samples containing indocyanine green cause interferences on Total and/or Direct Bilirubin and must not be measured. Kailyn Blood MD CHEMISTRY ORDERABLES [facility] [employer] [facility]# [id number] [address] [facility] [place] [address] * (ABNORMAL) CBC WITH DIFFERENTIAL (05/02/2020 10:38 AM CDT) Pathologist [facility] WBC 7.7 4.0 - 9.8 K/uL 05/02/2020 10:49 AM CDT [facility] LABORATORY [facility] RBC 4.13(L) 4.50 - 5.40 M/uL 05/02/2020 10:49 AM CDT [facility] LABORATORY [facility] HEMOGLOBIN 13.7 13.6 - 16.5 g/dL 05/02/2020 10:49 AM CDT [facility] LABORATORY [facility] HEMATOCRIT 40.2 40.0 - 48.0 % 05/02/2020 10:49 AM CDT [facility] LABORATORY [facility] MCV 97.3 82.0 - 99.0 fL 05/02/2020 10:49 AM CDT [facility] - [facility] MCH 33.2(H) 27.2 - 32.6 pg 05/02/2020 10:49 AM CDT [facility] LABORATORY SERVICES - [facility] MCHC 34.1 31.5 - 35.5 g/dL 05/02/2020 10:49 AM CDT [facility] LABORATORY SERVICES - [facility] RDW 12.4 11.5 - 14.5 % 05/02/2020 10:49 AM CDT [facility] LABORATORY SERVICES - [facility] RDW-STDEV 44.3 37.1 - 48.7 fL 05/02/2020 10:49 AM CDT [facility] LABORATORY SERVICES - [facility] PLATELETS 246 140 - 350 K/uL 05/02/2020 10:49 AM CDT [facility] LABORATORY SERVICES - [facility] MPV 10.0 9.3 - 12.4 fL 05/02/2020 10:49 AM CDT [facility] LABORATORY SERVICES - [facility] NEUTROPHILS 45 % 05/02/2020 10:49 AM CDT [facility]AT[facility] SERVICES - [facility] LYMPHOCYTES 40 % 05/02/2020 10:49 AM CDT [facility]AT[facility] SERVICES - [facility] MONOCYTES 9 % 05/02/2020 10:49 AM CDT [facility] LABORATORY SERVICES - [facility] EOSINOPHILS 6 % 05/02/2020 10:49 AM CDT [facility]AT[facility] SERVICES - [facility] BASOPHILS 1 % 05/02/2020 10:49 AM CDT [facility]AT[facility] SERVICES - [facility] IMMATURE GRANULOCYTES 0 % 05/02/2020 10:49 AM CDT [facility]ATORY SERVICES - [facility] NEUTROPHIL ABSOLUTE 3.45 1.90 - 7.00 K/uL 05/02/2020 10:49 AM CDT [facility] LABORATORY SERVICES - [facility] LYMPHOCYTE ABSOLUTE 3.06 0.70 - 4.50 K/uL 05/02/2020 10:49 AM CDT [facility] LABORATORY SERVICES - [facility] MONOCYTE ABSOLUTE 0.70 0.10 - 1.30 K/uL 05/02/2020 10:49 AM CDT [facility] LABORATORY SERVICES - [facility] EOSINOPHIL ABSOLUTE 0.45 0.00 - 0.70 K/uL 05/02/2020 10:49 AM CDT [facility] LABORATORY SERVICES - [facility] BASOPHILS ABSOLUTE 0.05 0.00 - 0.20 K/uL 05/02/2020 10:49 AM CDT [facility] - [facility] IMMATURE GRANULOCYTES ABSOLUTE 0.02 0.00 - 0.03 K/uL 05/02/2020 10:49 AM CDT [facility] LABORATORY [facility] Blood Venipuncture / Unknown 05/02/2020 10:38 AM CDT 05/02/2020 10:43 AM CDT Kailyn Blood MD HEMATOLOGY ORDERABLE S [facility]ORY [facility] [id number] [address] [place] [address] documented in this encounter Visit Diagnoses Diagnosis Prostate cancer Malignant neoplasm of prostate documented in this encounter Care Teams Educational Program Assistant Relationship Specialty Start Date End Date Ilan Whitley DO [address] [place] [address] PCP - General 09/07/09 07/31/20 documented as of this encounter
--- OUTSIDE RECORDS SUMMARY | 2024-10-30 02:32 | XMS_ITS | Encounter Summary ---
Author Organization [facility] Address [address] [place] [address] Care Team Providers Care Rubber Covering Machine Operator Name Role Phone Anirudh Craft MD Primary Care Provider [phone] Reason for Visit * Reason Comments Follow Up follow up labs Encounter Details Date Type Department Care Team (Late st Contact Info) Description 10/29/2020 3:20 PM PRESIDENT & FOUNDER Office Visit [facility] ONCOLOGY AND HEMATOLOGY - [place] [address] [facility] [address] [place] [address] Kailyn Blood MD [address] [facility] [address] [place] [address] Cancer, metastatic to bone (Primary Dx) [...] COVID-19? No / Unsure 10/29/2020 2:38 PM PRESIDENT & FOUNDER documented as of this encounter Last Filed Vital Signs Vital Sign Reading Time Taken Comments Blood Pressure 130/73 10/29/2020 2:54 PM PRESIDENT & FOUNDER Pulse 71 10/29/2020 2:54 PM PRESIDENT & FOUNDER Temperature 35.9 ??C (96.6 ??F) 10/29/2020 2:54 PM CS T Respiratory Rate - - Oxygen Saturation 99% 10/29/2020 2:54 PM PRESIDENT & FOUNDER Inhaled Oxygen Concentration - - Weight 72.1 kg (159 lb) 10/29/2020 2:54 PM PRESIDENT & FOUNDER Height 167.6 cm (5' 6 ) 10/29/2020 2:54 PM PRESIDENT & FOUNDER Body Mass Index 25.66 10/29/2020 2:54 PM PRESIDENT & FOUNDER documented in this encounter Progress Notes * Kailyn Blood MD - 10/29/2020 3:20 PM CST Hematology Oncology Follow up DIAGNOSIS Metastatic prostate cancer, Florin score 8, with right acetabulum met in 11/2019 Right lung nodule CURRENT TREATMENT Lupron TREATMENT HISTORY Casodex Xgeva SUBJECTIVE Patient returns today for reevaluation. The patient complains gum soreness around his left lower teeth. REVIEW OF SYSTEMS During the review of [...] Neuro: No obvious focal deficit LABS WBC 8.9 Hgb 14.2 plt 230 PSA <0.1 ASSESSMENT/PLAN 1. Prostate cancer. Tolerated treatment well. No progression. Continue Lupron in December. 2. RLL nodule. Repeat CT showed significantly decreased RLL lung nodule indicating a benign etiology. Will monitor it closely. 3. 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 Will stop it now. Will have him follow up withdentist. Patient will follow-up with me in 6 weeks. René Blood MD [facility] Oncology and Hematology [facility] IDENT & FOUNDER documented in this encounter Plan of Treatment Upcoming Encounters Date Type Department Care Team (Late st Contact Info) Description 12/13/2024 9:45 AM PRESIDENT & FOUNDER Office Visit [facility] Oncology and Hematology [facility] [address] [facility] [address] [place] [phone] Glenn Al MD [address] [facility] [address] [place] [address] documented as of this encounter Visit Diagnoses Diagnosis Cancer, metastatic to bone- Primary Secondary malignant neoplasm of bone and bone marrow documented in this encounter Care Teams Rubber Covering Machine Operator Relationship Specialty Start Date End Date Anirudh Craft MD [address] [facility] [address] [place] [phone] PCP - General Internal Medicine 08/01/20 09/19/24 documented as of this encounter
--- OUTSIDE RECORDS SUMMARY | 2024-10-30 02:32 | XMS_ITS | Encounter Summary ---
Author Organization [facility] Address [address] [place] [address] Care Team Providers Care Mine Development Engineer Name Role Phone Anirudh Craft MD Primary Care Provider Encounter Details Date Type Department Care Team (Latest Contact Info) Description 09/19/2020 9:29 AM HEAD NECK SURGEON - 09/19/2020 11:59 PM HEAD NECK SURGEON Hospital Encounter [facility] Laboratory Services Vinicio [facility] [address] [place] [address] Kailyn Blood MD [address] [place] [address] Discharge Disposition: Home or Self [...] COVID-19? No / Unsure 09/19/2020 9:28 AM HEAD NECK SURGEON documented as of this encounter Medications at [...] Contact Info) Description 12/13/2024 9:45 AM HEAD NECK SURGEON Office Visit [facility] Oncology and Hematology [facility] [address] [place] [address] Glenn Al MD [address] [facility] [address] [place] [address] documented as of this encounter Procedures Procedure Name Priority Date/Time Associated Diagnosis Comments CBC WITH DIFFERENTIAL Routine 09/19/2020 9:32 AM HEAD NECK SURGEON Prostate cancer PSA Routine 09/19/2020 9:32 AM HEAD NECK SURGEON Prostate cancer COMPREHENSIVE METABOLIC PANEL Routine 09/19/2020 9:32 AM HEAD NECK SURGEON Prostate cancer documented in this encounter Results * PSA (09/19/2020 9:32 AM HEAD NECK SURGEON) PSA <0.1 <4.0 ng/mL 09/19/2020 10:17 AM HEAD NECK SURGEON [facility] Blood Venipuncture / Unknown 09/19/2020 9:32 AM HEAD NECK SURGEON 09/19/2020 9:41 AM HEAD NECK SURGEON Narrative [facility] - 09/19/2020 10:17 AM HEAD NECK SURGEON The concentration of PSA in a given specimen, as determined by assays from different manufacturers, can vary because of differences in assay methods and reagent specificity. Values obtained with different assay methods cannot be used interchangeably. The testing method in use is the WILLIAM Electrochemiluminescence Immunoassay. Kailyn Blood MD CHEMISTRY ORDERABLES [facility] CLIA# [id number] [address] [place] [address] * (ABNORMAL) COMPREHENSIVE METABOLIC PANEL (09/19/2020 9:32 AM HEAD NECK SURGEON) [facility] SODIUM 139 136 - 145 mmol/L 09/19/2020 10:12 AM [employer] [facility] POTASSIUM 4.7 3.5 - 5.0 mmol/L 09/19/2020 10:12 AM [facility] [facility] CHLORIDE 104 98 - 107 mmol/L 09/19/2020 10:12 AM [employer] [facility] [facility] CO2 26 22 - 29 mmol/L 09/19/2020 10:12 AM [employer] [facility] CALCIUM 9.1 8.6 - 10.2 mg/dL 09/19/2020 10:12 AM [employer] [facility] BUN 18 8 - 23 mg/dL 09/19/2020 10:12 AM [employer] [facility] CREATININE 0.86 0.67 - 1.17 mg/dL 09/19/2020 10:12 AM [employer] [facility] - [facility] Comment:The GFR result is no t clinically significant on patients <18 or >70 years of age. GLUCOSE 102(H) 74 - 99 mg/dL 09/19/2020 10:12 AM [employer] [facility] TOTAL PROTEIN 7.0 6.7 - 8.6 g/dL 09/19/2020 10:12 AM [employer] [facility] ALBUMIN 4.4 3.5 - 5.2 g/dL 09/19/2020 10:12 AM [employer] [facility] BILIRUBIN TOTAL 0.3 0.2 - 1.1 mg/dL 09/19/2020 10:12 AM [employer] [facility] ALKALINE PHOSPHATASE 55 40 - 129 U/L 09/19/2020 10:12 AM [employer] [facility] AST 24 <41 U/L 09/19/2020 10:12 AM [employer] [facility] ALT 16 <42 U/L 09/19/2020 10:12 AM [employer] [facility] GFR >60 mL/min/1.7 3 sq meter 09/19/2020 10:12 AM [employer] [facility] Comment: eGFR has not been validated [...] result. GFR, >60 mL/min/1.7 3 sq meter 09/19/2020 10:12 AM [facility] [employer] [facility] ANION GAP 9 8 - 16 mmol/L 09/19/2020 10:12 AM [facility] [employer] [facility] Blood Venipuncture / Unknown 09/19/2020 9:32 AM HEAD NECK SURGEON 09/19/2020 9:41 AM [facility] [employer] [facility] - 09/19/2020 10:12 AM HEAD NECK SURGEON Samples containing indocyanine green cause interferences on Total and/or Direct Bilirubin and must not be measured. Kailyn Blood MD CHEMISTRY ORDERABLES [facility] [employer] [facility]# [id number] [address] [place], [place] [id number] * (ABNORMAL) CBC WITH DIFFERENTIAL (09/19/2020 9:32 AM HEAD NECK SURGEON) WBC 7.9 4.0 - 9.8 K/uL 09/19/2020 9:42 AM [facility] [employer] [facility] RBC 4.10(L) 4.50 - 5.40 M/uL 09/19/2020 9:42 AM [facility] [employer] [facility] HEMOGLOBIN 13.9 13.6 - 16.5 g/dL 09/19/2020 9:42 AM [facility] [employer] [facility] HEMATOCRIT 41.8 40.0 - 48.0 % 09/19/2020 9:42 AM [facility] [employer] [facility] MCV 102.0(H) 82.0 - 99.0 fL 09/19/2020 9:42 AM [facility] [employer] [facility] MCH 33.9(H) 27.2 - 32.6 pg 09/19/2020 9:42 AM HEAD NECK SURGEON [facility] MCHC 33.3 31.5 - 35.5 g/dL 09/19/2020 9:42 AM HEAD NECK SURGEON [employer] [facility] RDW 12.2 11.5 - 14.5 % 09/19/2020 9:42 AM HEAD NECK SURGEON [employer] [facility] RDW-STDEV 46.0 37.1 - 48.7 fL 09/19/2020 9:42 AM HEAD NECK SURGEON [employer] [facility] PLATELETS 215 140 - 350 K/uL 09/19/2020 9:42 AM HEAD NECK SURGEON [employer] [facility] MPV 10.3 9.3 - 12.4 fL 09/19/2020 9:42 AM HEAD NECK SURGEON [employer] [facility] NEUTROPHILS 49 % 09/19/2020 9:42 AM HEAD NECK SURGEON [employer] [facility] LYMPHOCYTES 37 % 09/19/2020 9:42 AM [employer] [facility] MONOCYTES 10 % 09/19/2020 9:42 AM [employer] [facility] EOSINOPHILS 4 % 09/19/2020 9:42 AM [employer] [facility] BASOPHILS 1 % 09/19/2020 9:42 AM [employer] [facility] IMMATURE GRANULOCYTES 0 % 09/19/2020 9:42 AM [employer] [facility] NEUTROPHIL ABSOLUTE 3.85 1.90 - 7.00 K/uL 09/19/2020 9:42 AM [employer] [facility] LYMPHOCYTE ABSOLUTE 2.93 0.70 - 4.50 K/uL 09/19/2020 9:42 AM [employer] [facility] MONOCYTE ABSOLUTE 0.76 0.10 - 1.30 K/uL 09/19/2020 9:42 AM HEAD NECK SURGEON [employer] [facility] EOSINOPHIL ABSOLUTE 0.29 0.00 - 0.70 K/uL 09/19/2020 9:42 AM HEAD NECK SURGEON [employer] [facility] BASOPHILS ABSOLUTE 0.04 0.00 - 0.20 K/uL 09/19/2020 9:42 AM HEAD NECK SURGEON [employer] [facility] IMMATURE GRANULOCYTES ABSOLUTE 0.03 0.00 - 0.03 K/uL 09/19/2020 9:42 AM [facility] Blood Venipuncture / Unknown 09/19/2020 9:32 AM HEAD NECK SURGEON 09/19/2020 9:38 AM HEAD NECK SURGEON Kailyn Blood MD HEMATOLOGY ORDERABLE S Performing Organization Address City/State/[facility] Co de Phone Number [facility]# [id number] [address] [place] [address] documented in this encounter Visit Diagnoses Diagnosis Prostate cancer Malignant neoplasm of prostate documented in this encounter Care Teams Mine Development Engineer Relationship Specialty Start Date End Date Anirudh Craft MD [address] [address] PCP - General Internal Medicine 08/01/20 09/19/24 documented as of this encounter
--- OUTSIDE RECORDS SUMMARY | 2024-10-30 02:32 | XMS_ITS | Encounter Summary ---
Author Organization [facility] Address [address] [facility] Attn: Epic Prelude ADT [place] [address] Care Team Providers Care Color Room Attendant Name Role Phone Ilan Whitley DO Primary Care Provider Encounter Details Date Type Department Care Team (Latest Contact Info) Description 01/18/2020 Travel Social History Tobacco Use Types Packs/Day [...] st Contact Info) Description 12/13/2024 9:45 AM SELLING MANAGER Office Visit [facility] Oncology and Hematology - [place] [address] [email or web address] [address] [place] [address] Glenn Al MD [address] [facility] [address] [place] [address] documented as of this encounter Visit Diagnoses Not on filedocumented in this encounter Care Teams Color Room Attendant Relationship Specialty Start Date End Date Ilan Whitley DO [address] [place] [address] PCP - General 09/07/09 07/31/20 documented as of this encounter
--- OUTSIDE RECORDS SUMMARY | 2024-10-30 02:32 | XMS_ITS | Encounter Summary ---
Author Organization [facility] Address [address] [place] [address] Care Team Providers Care Slide Fasteners Inspector Name Role Phone Ilan Whitley DO Primary Care Provider Reason for Visit * Reason Comments Follow Up Nurse Navigation Encounter Details Date Type Department Care Team (Late st Contact Info) Description 02/09/2020 Chart Note [facility] Patient Navigation [address] [place] [address] Nora Milligan, RN Follow Up (Nurse Navigation) [...] as of this encounter Progress Notes * oNra Goode, RN - 02/09/2020 9:17 AM CDT Follow up navigation call. Patient and I reviewed next appointment. Patient and I also discussed the possibility of any cancellations due to the virus. I did inform the patient that some physicians are doing over the phone appointments and to contact the medical oncology office with any additional questions to that. Patient expresses some fatigue, but he still manages to exercise daily. Encouraged patient to call with any questions or concerns. Nora Goode, RN, BSN Oncology Nurse Navigator documented in this encounter Plan of Treatment Upcoming Encounters Date Type Department Care Team (Late st Contact Info) Description 12/13/2024 9:45 AM BRASSIERE CUP MOLD CUTTER Office Visit [facility] Oncology and Hematology - [place] [address] [facility] [address] [place] [address] Glenn Al MD [address] [facility] [address] [place] [address] documented as of this encounter Visit Diagnoses Not on filedocumented in this encounter Care Teams Slide Fasteners Inspector Relationship Specialty Start Date End Date Ilan Whitley DO [address] [place] [address] PCP - General 09/07/09 07/31/20 documented as of this encounter
--- OUTSIDE RECORDS SUMMARY | 2024-10-30 02:32 | XMS_ITS | Encounter Summary ---
Author Organization [facility] Address [address] [place] [address] Care Team Providers Care Marble Installer Supervisor Name Role Phone GutierrezIlan DO Primary Care Provider Encounter Details Date Type Department Care Team (Latest Contact Info) Description 01/18/2020 8:48 AM CDT - 01/18/2020 11:59 PM CDT Hospital Encounter [facility] [address] [place] [address] Kailyn Blood MD [address] [place] [address] Discharge Disposition: Home or Self [...] st Contact Info) Description 12/13/2024 9:45 AM LABEL REMOVER Office Visit [facility] Oncology and Hematology [facility] [address] [facility] [address] [place] [address] Glenn Al MD [address] [facility] [address] [place] [address] documented as of this encounter Procedures Procedure Name Priority Date/Time Associated Diagnosis Comments CBC WITH DIFFERENTIAL Routine 01/18/2020 8:51 AM CDT Prostate cancer PSA Routine 01/18/2020 8:51 AM CDT Prostate cancer COMPREHENSIVE METABOLIC PANEL Routine 01/18/2020 8:51 AM CDT Prostate cancer documented in this encounter Results * (ABNORMAL) CBC WITH DIFFERENTIAL (01/18/2020 8:51 AM CDT) WBC 9.4 4.0 - 9.8 K/uL 01/18/2020 9:00 AM T [facility]ORY SERVICES [facility] RBC 4.37(L) 4.50 - 5.40 M/uL 01/18/2020 9:00 AM T [facility] SERVICES [facility] HEMOGLOBIN 14.2 13.6 - 16.5 g/dL 01/18/2020 9:00 AM T [facility] SERVICES [facility] HEMATOCRIT 42.5 40.0 - 48.0 % 01/18/2020 9:00 AM T [facility]ORY SERVICES [facility] MCV 97.3 82.0 - 99.0 fL 01/18/2020 9:00 AM T [facility]ORY SERVICES [facility] MCH 32.5 27.2 - 32.6 pg 01/18/2020 9:00 AM T [facility] SERVICES [facility] MCHC 33.4 31.5 - 35.5 g/dL 01/18/2020 9:00 AM [employer] [facility] - [facility] RDW 12.6 11.5 - 14.5 % 01/18/2020 9:00 AM [employer] [facility] - [facility] RDW-STDEV 45.5 37.1 - 48.7 fL 01/18/2020 9:00 AM [employer] [facility] PLATELETS 240 140 - 350 K/uL 01/18/2020 9:00 AM [employer] [facility] - [facility] MPV 10.0 9.3 - 12.4 fL 01/18/2020 9:00 AM [employer] [facility] NEUTROPHILS 60 % 01/18/2020 9:00 AM [employer] LYMPHOCYTES 28 % 01/18/2020 9:00 AM [employer] [facility] MONOCYTES 8 % 01/18/2020 9:00 AM [employer] [facility] EOSINOPHILS 3 % 01/18/2020 9:00 AM [facility] [employer] [facility] - [facility] BASOPHILS 0 % 01/18/2020 9:00 AM [employer] [facility] IMMATURE GRANULOCYTES 0 % 01/18/2020 9:00 AM [employer] [facility] NEUTROPHIL ABSOLUTE 5.58 1.90 - 7.00 K/uL 01/18/2020 9:00 AM [facility] [facility] - [facility] LYMPHOCYTE ABSOLUTE 2.64 0.70 - 4.50 K/uL 01/18/2020 9:00 AM [employer] [facility]ATORY SERVICES - . [facility] MONOCYTE ABSOLUTE 0.75 0.10 - 1.30 K/uL 01/18/2020 9:00 AM [facility] [employer] [facility] - [facility] EOSINOPHIL ABSOLUTE 0.31 0.00 - 0.70 K/uL 01/18/2020 9:00 AM [facility]ATORY SERVICES - . [facility] BASOPHILS ABSOLUTE 0.04 0.00 - 0.20 K/uL 01/18/2020 9:00 AM [employer] - [facility] IMMATURE GRANULOCYTES ABSOLUTE 0.03 0.00 - 0.03 K/uL 01/18/2020 9:00 AM [facility] Blood Venipuncture / Unknown 01/18/2020 8:51 AM CDT 01/18/2020 8:56 AM CDT Kailyn Blood MD HEMATOLOGY ORDERABLE S [employer] [facility] CLIA# [id number] [address] [facility] [place] [address] * COMPREHENSIVE METABOLIC PANEL (01/18/2020 8:51 AM CDT) SODIUM 143 136 - 145 mmol/L 01/18/2020 9:31 AM CDT [employer] [facility] SERVICES - . [facility] POTASSIUM 4.2 3.5 - 5.0 mmol/L 01/18/2020 9:31 AM CDT [employer] [facility]ORY SERVICES - . [facility] CHLORIDE 103 98 - 107 mmol/L 01/18/2020 9:31 AM CDT [employer] [facility] CO2 27 22 - 29 mmol/L 01/18/2020 9:31 AM CDT [employer] [facility] CALCIUM 9.1 8.6 - 10.2 mg/dL 01/18/2020 9:31 AM CDT [employer] [facility]ATORY SERVICES - . [facility] BUN 18 8 - 23 mg/dL 01/18/2020 9:31 AM CDT [employer] [facility]ORY SERVICES - . [facility] CREATININE 0.79 0.67 - 1.17 mg/dL 01/18/2020 9:31 AM CDT [employer] [facility] Comment:The GFR result is no t clinically significant on patients <18 or >70 years of age. GLUCOSE 93 74 - 99 mg/dL 01/18/2020 9:31 AM CDT [employer] [facility]ATORY SERVICES - . [facility] TOTAL PROTEIN 7.2 6.7 - 8.6 g/dL 01/18/2020 9:31 AM CDT [employer] [facility]ORY SERVICES - . [facility] ALBUMIN 4.9 3.5 - 5.2 g/dL 01/18/2020 9:31 AM CDT [employer] [facility]ORY SERVICES - . [facility] BILIRUBIN TOTAL 0.5 0.2 - 1.1 mg/dL 01/18/2020 9:31 AM CDT [employer] [facility]ATORY SERVICES - . [facility] ALKALINE PHOSPHATASE 106 40 - 129 U/L 01/18/2020 9:31 AM CDT [facility] AST 31 <41 U/L 01/18/2020 9:31 AM CDT [facility] ALT 19 <42 U/L 01/18/2020 9:31 AM CDT [facility] GFR >60 mL/min/1.7 3 sq meter 01/18/2020 9:31 AM CDT [facility] Comment: eGFR has not been validated [...] result. GFR, >60 mL/min/1.7 3 sq meter 01/18/2020 9:31 AM CDT [facility] ANION GAP 13 8 - 16 mmol/L 01/18/2020 9:31 AM T [facility] Blood Venipuncture / Unknown 01/18/2020 8:51 AM CDT 01/18/2020 8:57 AM CDT Narrative [facility] - 01/18/2020 9:31 AM CDT Samples containing indocyanine green cause interferences on Total and/or Direct Bilirubin and must not be measured. Kailyn Blood MD CHEMISTRY ORDERABLES [facility] [employer] [facility]# [id number] [address] [place] [address] [place] [id number] * PSA (01/18/2020 8:51 AM CDT) PSA 0.3 <4.0 ng/mL 01/18/2020 9:35 AM CDT [facility] [employer] [facility] Blood Venipuncture / Unknown 01/18/2020 8:51 AM CDT 01/18/2020 8:57 AM CDT Narrative [facility] - 01/18/2020 9:35 AM CDT The concentration of PSA in a given specimen, as determined by assays from different manufacturers, can vary because of differences in assay methods and reagent specificity. Values obtained with different assay methods cannot be used interchangeably. The testing method in use is the WILLIAM Electrochemiluminescence Immunoassay. Kailyn Blood MD CHEMISTRY ORDERABLES [facility] [id number] [address] [place] [address] documented in this encounter Visit Diagnoses Diagnosis Prostate cancer Malignant neoplasm of prostate documented in this encounter Care Teams Marble Installer Supervisor Relationship Specialty Start Date End Date Ilan Whitley DO [address] [place] [address] PCP - General 09/07/09 07/31/20 documented as of this encounter
--- OUTSIDE RECORDS SUMMARY | 2024-10-30 02:32 | XMS_ITS | Encounter Summary ---
Author Organization [facility] Address [address] [place] [address] Care Team Providers Care Oil Changer Name Role Phone Anirudh Craft MD Primary Care Provider Reason for Visit * Tx/Med Therapy Plan Auth (Routine) - Closed Specialty Diagnoses / Procedures Referred By Cecile t Referred To Contact Diagnoses Prostate cancer Cancer, metastatic to bone Procedures UT LEUPROLIDE ACETATE SUSPNSION UT DENOSUMAB INJECTION Kailyn Edmond MD [address] [facility] [place] [address] [facility] 3rd Floor [place] [address] [facility]5 [place] [address] Referral ID Status Reason Start Date Expiration Date Visits Re quested Visits Authorized [id number] Closed 12/12/2020 11/01/2021 99 99 Encounter Details Date Type Department Care Team (Latest Contact Info) Description 08/01/2020 11:12 AM CDT - 08/01/2020 11:59 PM CDT Hospital Encounter Vinicio [place] Cancer [facility] 3rd Fl [address] [place] [address] Kailyn Blood MD [address] [facility]0 [place] [address] Injection Pod 1, [place] Discharge [...] Progress Notes * Dora Angulo RN - 08/01/2020 11:45 AM CDT Ilan Mccauley admitted to infusion [...] st Contact Info) Description 12/13/2024 9:45 AM LUMBER RACKER Office Visit [facility] Oncology and Hematology - [place] [address] [place] [address] [facility] 200 [place] [address] Glenn Al MD [address] [facility] [address] [place] [address] documented as of this encounter [...] subCUT, ONE TIME ONLY, 1 dose, On Thu08/01/20 at 1130, Routine Given 08/01/2020 11:42 AM CDT 120 mg Arm, Right Upper documented in this encounter Care Teams Oil Changer Relationship Specialty Start Date End Date Anirudh Craft MD [address] [phone] PCP - General Internal Medicine 08/01/20 09/19/24 documented as of this encounter
--- OUTSIDE RECORDS SUMMARY | 2024-10-30 02:32 | XMS_ITS | Encounter Summary ---
Author Organization [facility] Address [address] [place] [address] Care Team Providers Care Liquid Hydrogen Plant Operator Name Role Phone Ilan Whitley DO Primary Care Provider Reason for Visit * Reason Comments Follow Up Nurse Navigation Encounter Details Date Type Department Care Team (Late st Contact Info) Description 01/18/2020 Chart Note [facility] Oncology Patient Navigation [address] [place] [address] Nora Milligan, RN Follow Up (Nurse Navigation) [...] Progress Notes * Nora Goode RN - 01/18/2020 9:48 AM CDT Follow-up patient navigation call to check on patient. Met with patient in [facility] today. Discussed in detail my role. Reviewed ADT treatment and encouraged patient to call me in the future with any questions or concerns Nora Goode, RN, BSN Oncology Nurse Navigator documented in this encounter Plan of Treatment Upcoming Encounters Date Type Department Care Team (Late st Contact Info) Description 12/13/2024 9:45 AM POINTING MACHINE OPERATOR Office Visit [facility] Oncology and Hematology - [place] [address] [facility] [address] [place] [address] Glenn Al MD 2[address] [facility] [address] [place] [address] documented as of this encounter Visit Diagnoses Not on filedocumented in this encounter Care Teams Liquid Hydrogen Plant Operator Relationship Specialty Start Date End Date Ilan Whitley DO [address] [place] [address] PCP - General 09/07/09 07/31/20 documented as of this encounter
--- OUTSIDE RECORDS SUMMARY | 2024-10-30 02:32 | XMS_ITS | Encounter Summary ---
Author Organization [facility] Address [address] [place] [address] Care Team Providers Care Vp Design Name Role Phone Ilan Whitley DO Primary Care Provider Reason for Visit * Reason Comments Follow Up Nurse Navigation Encounter Details Date Type Department Care Team (Late st Contact Info) Description 01/02/2020 Chart Note [facility] Oncology Patient Navigation [address] [place] [address] Nora Milligan, RN Follow Up (Nurse Navigation) [...] on file documented as of this encounter Progress Notes * Nora Goode RN - 01/02/2020 8:21 AM CST Follow up navigation call. Patient and I reviewed and discussed some concerns he has about his ADT.Went over a few questions he would like to talk with Dr. Blood about. Patient also set up time to comeby [facility] to review additional questions. Encouraged patient to call with any questions or concerns going forward. Nora Goode RN, BSN Oncology Nurse Navigator ESALER documented in this encounter Plan of Treatment Upcoming Encounters Date Type Department Care Team (Late st Contact Info) Description 12/13/2024 9:45 AM WHOLESALER Office Visit [facility] Oncology and Hematology - [place] [address] [facility] [address] [place] [address] Glenn Al MD [address] [facility] [address] [place] [address] documented as of this encounter Visit Diagnoses Not on filedocumented in this encounter Care Teams Vp Design Relationship Specialty Start Date End Date Ilan Whitley DO [address] [place] [address] PCP - General 09/07/09 07/31/20 documented as of this encounter
--- OUTSIDE RECORDS SUMMARY | 2024-10-30 02:32 | XMS_ITS | Encounter Summary ---
Author Organization [facility] Address [address] [facility] Attn: Epic Prelude ADT [place] [address] Care Team Providers Care Assistant Superintendent Name Role Phone Ilan Whitley DO Primary Care Provider Encounter Details Date Type Department Care Team (Latest Contact Info) Description 06/20/2020 Travel Social History Tobacco Use Types Packs/Day [...] st Contact Info) Description 12/13/2024 9:45 AM BRIM PRESSER Office Visit [facility] Oncology and Hematology - [place] [address] [facility] 200 [place] [address] Glenn Al MD [address] [facility] [address] [place] [address] documented as of this encounter Visit Diagnoses Not on filedocumented in this encounter Care Teams Assistant Superintendent Relationship Specialty Start Date End Date Ilan Whitley DO [address] [place] [address] PCP - General 09/07/09 07/31/20 documented as of this encounter
--- OUTSIDE RECORDS SUMMARY | 2024-10-30 02:32 | XMS_ITS | Encounter Summary ---
Author Organization [facility] Address [address] [place] [address] Care Team Providers Care Transcript Evaluator Name Role Phone Anirudh Craft MD Primary Care Provider [phone] Reason for Visit * Reason Comments Follow Up FOLLOW UP,LABS Encounter Details Date Type Department Care Team (Late st Contact Info) Description 12/26/2020 10:50 AM TYPESETTING MACHINE OPERATOR/TENDER Office Visit [facility] ONCOLOGY AND HEMATOLOGY - [place] [address] [facility] [address] [place] [address] Kailyn Blood MD 607 [facility] [address] [place] [address] Cancer, metastatic to bone (Primary Dx) [...] COVID-19? No / Unsure 12/26/2020 9:52 AM TYPESETTING MACHINE OPERATOR/TENDER documented as of this encounter Last Filed Vital Signs Vital Sign Reading Time Taken Comments Blood Pressure 122/70 12/26/2020 10:35 AM TYPESETTING MACHINE OPERATOR/TENDER Pulse 62 12/26/2020 10:35 AM TYPESETTING MACHINE OPERATOR/TENDER Temperature 36.3 ??C (97.4 ??F) 12/26/2020 10:[address] Respiratory Rate - - Oxygen Saturation - - Inhaled Oxygen Concentration - - Weight 71.7 kg (158 lb) 12/26/2020 10:35 AM TYPESETTING MACHINE OPERATOR/TENDER Height 167.6 cm (5' 6 ) 12/26/2020 10:35 AM TYPESETTING MACHINE OPERATOR/TENDER Body Mass Index 25.5 12/26/2020 10:35 AM TYPESETTING MACHINE OPERATOR/TENDER documented in this encounter Progress Notes * Kailyn Blood MD - 12/26/2020 10:38 AM CST Hematology Oncology Follow up DIAGNOSIS [...] Neuro: No obvious focal deficit LABS WBC 9.2 Hgb 14.4 plt 222 PSA <0.1 ASSESSMENT/PLAN 1. Prostate cancer. Tolerated treatment well. PSA undetectable. Continue Lupron today. 2. RLL nodule. Repeat CT showed significantly decreased RLL lung nodule indicating a benign etiology. Will monitor it closely. 3. 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 Will stop it now. Patient will follow-up with me in 3 months. René Blood MD [facility] Oncology and Hematology [facility] SETTING MACHINE OPERATOR/TENDER documented in this encounter Plan of Treatment Upcoming Encounters Date Type Department Care Team (Late st Contact Info) Description 12/13/2024 9:45 AM TYPESETTING MACHINE OPERATOR/TENDER Office Visit [facility] Oncology and Hematology [facility] 2227 [facility] 200 [place] [phone] Gelnn Al MD [address] [facility] [address] [place] [address] documented as of this encounter Visit Diagnoses Diagnosis Cancer, metastatic to bone- Primary Secondary malignant neoplasm of bone and bone marrow documented in this encounter Care Teams Transcript Evaluator Relationship Specialty Start Date End Date Anirudh Craft MD 3[address] [facility] 4 [place] [address] PCP - General Internal Medicine 08/01/20 09/19/24 documented as of this encounter
--- OUTSIDE RECORDS SUMMARY | 2024-10-30 02:32 | XMS_ITS | Encounter Summary ---
Author Organization [facility] Address [address] [place] [address] Care Team Providers Care Scouring Machine Tender Name Role Phone GutierrezIlan DO Primary Care Provider Encounter Details Date Type Department Care Team (Late st Contact Info) Description 02/28/2020 Chart Note [facility] ONCOLOGY AND HEMATOLOGY [place] [id number] [phone] Susie Aldana RN Social History Tobacco Use Types Packs/Day Years [...] of this encounter Progress Notes * Susie Aldana RN - 02/28/2020 11:49 AM CDT Images from the original note were not included. Kailyn Blood MD Reinhold, Mary A RN Not much to do right now. Call if he has fever. Previous Messages ------ Message ----- From: Susie Aldana RN Sent: 02/27/2020 ?? 2:14 PM CDT To: Kailyn Blood MD Nurse Navigator spoke to him today and he said his cough is getting worse over past month. Coughingup yellow mucus. Scared about lung nodule. ??No SOB Spoke with Elijah and told him Dr Blood just wanted him to monitor it now and if temp goes up to 100.5 to call the office. Asked if taking anything for the cough and he said he does not like to take meds. Stays away from patented meds and he does feel he needs to take anything now. documented in this encounter Plan of Treatment Upcoming Encounters Date Type Department Care Team (Late st Contact Info) Description 12/13/2024 9:45 AM MORTGAGE BRANCH MANAGER Office Visit [facility] Oncology and Hematology [facility] [address] [facility] 200 [place] [address] Glenn Al MD [address] [facility] [address] [place] [address] documented as of this encounter Visit Diagnoses Not on filedocumented in this encounter Care Teams Scouring Machine Tender Relationship Specialty Start Date End Date Ilan Whitley DO [address] [place] [address] PCP - General 09/07/09 07/31/20 documented as of this encounter
--- OUTSIDE RECORDS SUMMARY | 2024-10-30 02:32 | XMS_ITS | Encounter Summary ---
Author Organization [facility] Address [address] [facility] Attn: Epic Prelude ADT [place] [address] Care Team Providers Care Therapy Coordinator Name Role Phone Anirudh Craft MD Primary Care Provider Encounter Details Date Type Department Care Team (Latest Contact Info) Description 10/29/2020 Travel Social History Tobacco Use Types Packs/Day [...] COVID-19? No / Unsure 10/29/2020 2:38 PM PATIENT CASE COORDINATOR documented as of this encounter Plan of Treatment Upcoming Encounters Date Type Department Care Team (Late st Contact Info) Description 12/13/2024 9:45 AM PATIENT CASE COORDINATOR Office Visit [facility] Oncology and Hematology - [place] [address] [facility] 200 [place] [address] Glenn Al MD [address] [facility] [address] [place] [address] documented as of this encounter Visit Diagnoses Not on filedocumented in this encounter Care Teams Therapy Coordinator Relationship Specialty Start Date End Date Anirudh Craft MD [address] [phone] PCP - General Internal Medicine 08/01/20 09/19/24 documented as of this encounter
--- OUTSIDE RECORDS SUMMARY | 2024-10-30 02:32 | XMS_ITS | Encounter Summary ---
Author Organization [facility] Address [address] [facility] Attn: Epic Prelude ADT [place] [address] Care Team Providers Care Limehouse Worker Name Role Phone Anirudh Craft MD Primary Care Provider Encounter Details Date Type Department Care Team (Latest Contact Info) Description 12/26/2020 Travel Social History Tobacco Use Types Packs/Day [...] COVID-19? No / Unsure 12/26/2020 9:52 AM DROP MACHINE OPERATOR documented as of this encounter Plan of Treatment Upcoming Encounters Date Type Department Care Team (Late st Contact Info) Description 12/13/2024 9:45 AM DROP MACHINE OPERATOR Office Visit [facility] Oncology and Hematology - [place] 2227 [facility] 200 [place] [address] Glenn Al MD 2227 [facility] [address] [place] [address] documented as of this encounter Visit Diagnoses Not on filedocumented in this encounter Care Teams Limehouse Worker Relationship Specialty Start Date End Date Anirudh Craft MD [address] [address] PCP - General Internal Medicine 08/01/20 09/19/24 documented as of this encounter
--- OUTSIDE RECORDS SUMMARY | 2024-10-30 02:32 | XMS_ITS | Encounter Summary ---
Author Organization [employer] [facility] Address [address] [place] [address] Care Team Providers Care Associate Director Of Development Name Role Phone Anirudh Craft MD Primary Care Provider [phone] Reason for Visit * Tx/Med Therapy Plan Auth (Routine) - Closed Specialty Diagnoses / Procedures Referred By Cecile t Referred To Contact Diagnoses Prostate cancer Cancer, metastatic to bone Procedures RI LEUPROLIDE ACETATE SUSPNSION RI DENOSUMAB INJECTION Kailyn Edmond MD [address] [facility] [place] [address] [facility] 3rd Floor [place] [address] [facility]5 [place] [address] Referral ID Status Reason Start Date Expiration Date Visits Re quested Visits Authorized [id number] Closed 12/12/2020 11/01/2021 99 99 Encounter Details Date Type Department Care Team (Latest Contact Info) Description 09/19/2020 10:16 AM CLINICAL TRANSPLANT COORDINATOR - 09/19/2020 11:59 PM [facility] Hospital Encounter Vinicio [place] Cancer [facility] Infusion Center 3rd Fl [address] [facility] [place] [address] Kailyn Blood MD [address] [facility] [place] [address] Injection 2, [place] Discharge Disposition: [...] COVID-19? No / Unsure 09/19/2020 9:28 AM CLINICAL TRANSPLANT COORDINATOR documented as of this encounter Medications [...] Progress Notes * Dora Angulo RN - 09/19/2020 10:53 AM CST Pt admitted to infusion center for Lupron injection. Pt/family demonstrates understanding of medication and possible side effects. Tolerated injection without problem. Instructed pt to notify physician or go to ED if there are any changes in their condition. Verbalized understanding. Ilan Mccauley admitted to infusion center for Xgeva injection. Lab results checked and Calcium levels within range for injection. Pt demonstrates understanding of medication and possible side effects. Tolerated injection without problem. Instructed pt to notify physician or go to ED if there are any changes in their condition. Verbalized understanding. Discharged home. ICAL TRANSPLANT COORDINATOR documented in this encounter Plan of Treatment Upcoming Encounters Date Type Department Care Team (Late st Contact Info) Description 12/13/2024 9:45 AM CLINICAL TRANSPLANT COORDINATOR Office Visit [facility] Oncology and Hematology - [place] [address] [facility] [address] [place] [address] [place] [address] Glenn Al MD [address] [facility] [address] [place] [address] documented as of this encounter [...] subCUT, ONE TIME ONLY, 1 dose, On Thu09/19/20 at 1030, Routine Given 09/19/2020 10:45 AM CLINICAL TRANSPLANT COORDINATOR 120 mg Arm, Right Upper leuprolide acetate (ELIGARD) 3 month subcut syringe 22.5 mg 22.5 mg, subCUT, ONE TIME ONLY, 1 dose, On Thu09/19/20 at 1030, Routine Given 09/19/2020 10:46 AM CLINICAL TRANSPLANT COORDINATOR 22.5 mg Abdomen, Left Lower Quadrant documented in this encounter Care Teams Associate Director Of Development Relationship Specialty Start Date End Date Anirudh Craft MD [address] [phone] PCP - General Internal Medicine 08/01/20 09/19/24 documented as of this encounter
--- OUTSIDE RECORDS SUMMARY | 2024-10-30 02:32 | XMS_ITS | Encounter Summary ---
Author Organization [facility] Address [address] [facility] Attn: Epic Prelude ADT [place] [address] Care Team Providers Care Backup Administrator Name Role Phone Ilan Whitley DO Primary Care Provider Encounter Details Date Type Department Care Team (Latest Contact Info) Description 05/02/2020 Travel Social History Tobacco Use Types Packs/Day [...] st Contact Info) Description 12/13/2024 9:45 AM ELECTRICAL DESIGN TECHNICIAN Office Visit [facility] Oncology and Hematology - [place] [address] [facility] 200 [place] [address] Glenn Al MD 2227 [facility] [address] [place] [address] documented as of this encounter Visit Diagnoses Not on filedocumented in this encounter Care Teams Backup Administrator Relationship Specialty Start Date End Date Ilan Whitley DO [address] [place] [address] PCP - General 09/07/09 07/31/20 documented as of this encounter
--- OUTSIDE RECORDS SUMMARY | 2024-10-30 02:32 | XMS_ITS | Encounter Summary ---
Author Organization [facility] Address [address] [place] [address] Care Team Providers Care Dormitory Counselor Name Role Phone Maria IsabelIlan bennett DO Primary Care Provider Encounter Details Date Type Department Care Team (Late st Contact Info) Description 05/29/2020 Chart Note [facility] ONCOLOGY AND HEMATOLOGY [place] [id number] [phone] Olman Chin RN Social History Tobacco Use Types Packs/Day [...] as of this encounter Progress Notes * Olman Chin RN - 05/29/2020 4:29 PM CDT Images from the original note were not included. Kailyn Blood MD Reilly, John, RN ?? Will hold Xgeva for now. Let's order a CT scan of neck to evaluate his mandible and other bony structures. Previous Messages ----- Message ----- From: Olman Chin RN Sent: 05/29/2020 ?? 2:39 PM CDT To: Kailyn Blood MD Patient receiving xgeva injections. ??Reports jaw pain along lower jaw. ??Has been evaluated by 3 dentists, cause unknown. ??Patient thinks he told the dentists he was on Xgeva. ??Patient is researching the name and contact number of most recent dentist and specialist the performed xrays and extensive exam. ??Patient seeking further management/guidance. Called and told Ilan about xgeva and CT. He does not want to do any more CT scans. documented in this encounter Plan of Treatment Upcoming Encounters Date Type Department Care Team (Late st Contact Info) Description 12/13/2024 9:45 AM NET SORTER Office Visit [facility] Oncology and Hematology - [place] 2[address] [facility] 200 [place] [address] Glenn Al MD 2227 [facility] 100 [place] [address] documented as of this encounter Visit Diagnoses Not on filedocumented in this encounter Care Teams Dormitory Counselor Relationship Specialty Start Date End Date Ilan Whitley DO [address] [place] [address] PCP - General 09/07/09 07/31/20 documented as of this encounter
--- OUTSIDE RECORDS SUMMARY | 2024-10-30 02:32 | XMS_ITS | Encounter Summary ---
Author Organization [facility] Address [address] [place] [address] Care Team Providers Care Agronomist Name Role Phone Anirudh Craft MD Primary Care Provider Reason for Visit * Reason Comments Follow Up Encounter Details Date Type Department Care Team (Late st Contact Info) Description 08/01/2020 11:20 AM CDT Office Visit [facility] ONCOLOGY AND HEMATOLOGY - [place] [address] [facility] [address] [place] [phone] Kailyn Blood MD [address] [facility] [address] [place] [address] Cancer, metastatic to bone (Primary Dx) [...] Reading Time Taken Comments Blood Pressure 120/70 08/01/2020 10:55 AM CDT Pulse 65 08/01/2020 10:55 AM CDT Temperature 36.4 ??C (97.5 ??F) 08/01/2020 10:55 AM C DT Respiratory Rate - - Oxygen Saturation - - Inhaled Oxygen Concentration - - Weight 71.7 kg (158 lb) 08/01/2020 10:55 AM CDT Height 167.6 cm (5' 6 ) 08/01/2020 10:55 AM CDT Body Mass Index 25.5 08/01/2020 10:55 AM CDT documented in this encounter Progress Notes * Kailyn Blood MD - 08/01/2020 12:33 PM CDT Hematology Oncology Follow up DIAGNOSIS Metastatic prostate cancer, Dexter score 8, with right acetabulum met in [...] Neuro: No obvious focal deficit LABS WBC 7.6 Hgb 12.9 plt 256 PSA <0.1 ASSESSMENT/PLAN 1. Prostate cancer. Tolerated treatment well. PSA remains undetectable. Continue Lupron in 6 weeks. 2. RLL nodule. Repeat CT showed significantly decreased RLL lung nodule indicating a benign etiology. Will monitor it closely. 3. Will continue Xgeva for bone mets today. Patient will follow-up with me in 6 weeks. René Blood MD [facility] Oncology and Hematology [facility] documented in this encounter Plan of Treatment Upcoming Encounters Date Type Department Care Team (Late st Contact Info) Description 12/13/2024 9:45 AM ROTOR BALANCER Office Visit [facility] Oncology and Hematology [facility] [address] [place] [address] [address] [place] [phone] Glenn Al MD 2[address] [facility] [address] [place] [address] documented as of this encounter Visit Diagnoses Diagnosis Cancer, metastatic to bone- Primary Secondary malignant neoplasm of bone and bone marrow documented in this encounter Care Teams Agronomist Relationship Specialty Start Date End Date Anirudh Craft MD 3908 [facility] 4 [place] [phone] PCP - General Internal Medicine 08/01/20 09/19/24 documented as of this encounter
--- OUTSIDE RECORDS SUMMARY | 2024-10-30 02:32 | XMS_ITS | Encounter Summary ---
Author Organization [facility] Address [address] [facility] Attn: Epic Prelude ADT [place] [address] Care Team Providers Care Surgical Consultant Name Role Phone Ilan Whitley DO Primary Care Provider Encounter Details Date Type Department Care Team (Latest Contact Info) Description 06/19/2020 Travel Social History Tobacco Use Types Packs/Day [...] st Contact Info) Description 12/13/2024 9:45 AM FACILITY SERVICE MANAGER [facility] Oncology and Hematology - [place] [address] [facility] [address] [place] [address] Glenn Al MD [address] [facility] [address] [place] [address] documented as of this encounter Visit Diagnoses Not on filedocumented in this encounter Care Teams Surgical Consultant Relationship Specialty Start Date End Date Ilan Whitley DO [address] [place] [address] PCP - General 09/07/09 07/31/20 documented as of this encounter
--- OUTSIDE RECORDS SUMMARY | 2024-10-30 02:32 | XMS_ITS | Encounter Summary ---
Author Organization [employer] [facility] Address [address] [place] [address] Care Team Providers Care Analytics Lead Name Role Phone Anirudh Craft MD Primary Care Provider Reason for Visit * Tx/Med Therapy Plan Auth (Routine) - Closed Specialty Diagnoses / Procedures Referred By Cecile t Referred To Contact Diagnoses Prostate cancer Cancer, metastatic to bone Procedures ID LEUPROLIDE ACETATE SUSPNSION ID DENOSUMAB INJECTION Kailyn Edmond MD [address] [facility] [place] [address] [facility] 3rd Floor [place] [address] [facility] [place] [address] Referral ID Status Reason Start Date Expiration Date Visits Re quested Visits Authorized [id number] Closed 12/12/2020 11/01/2021 99 99 Encounter Details Date Type Department Care Team (Latest Contact Info) Description 12/26/2020 10:44 AM HOTEL BREAKFAST ATTENDANT - 12/26/2020 11:59 PM [facility] Hospital Encounter [facility] [place] [facility] 3rd Fl [address] [place] [address] Kailyn Blood MD [address] [facility] [place] [address] Injection 3, [place] Discharge Disposition: [...] COVID-19? No / Unsure 12/26/2020 9:52 AM HOTEL BREAKFAST ATTENDANT documented as of this encounter Medications at [...] this encounter Progress Notes * Gt Long GN - 12/26/2020 11:14 AM CST Pt admitted to infusion center for Eligard injection. Pt demonstrates understanding of medication and possible side effects. Tolerated injection without problem. Instructed pt to notify physician or go to ED if there are any changes in their condition. Verbalized understanding. Discharged home. L BREAKFAST ATTENDANT documented in this encounter Plan of Treatment Upcoming Encounters Date Type Department Care Team (Late st Contact Info) Description 12/13/2024 9:45 AM HOTEL BREAKFAST ATTENDANT Office Visit [facility] Oncology and Hematology - [place] [address] [place] [address] [facility] 200 [place] [address] Glenn Al MD [address] [facility] [address] [place] [address] documented as of this encounter [...] subCUT, ONE TIME ONLY, 1 dose, On Thu12/26/20 at 1100, Routine Given 12/26/2020 11:11 AM HOTEL BREAKFAST ATTENDANT 22.5 mg Abdomen, Left Lower Quadrant documented in this encounter Care Teams Analytics Lead Relationship Specialty Start Date End Date Anirudh Craft MD [address] [phone] PCP - General Internal Medicine 08/01/20 09/19/24 documented as of this encounter
--- OUTSIDE RECORDS SUMMARY | 2024-10-30 02:32 | XMS_ITS | Encounter Summary ---
Author Organization [facility] Address [address] [place] [address] Care Team Providers Care Roller Billet Mill Name Role Phone GutierrezIlan DO Primary Care Provider Encounter Details Date Type Department Care Team (Latest Contact Info) Description 03/22/2020 10:38 AM CDT - 03/22/2020 11:59 PM CDT Hospital Encounter [facility] Laboratory Services [facility] [address], [address] [place] [address] Kailyn Blood MD [address] [place] [address] Discharge Disposition: Home or Self [...] Contact Info) Description 12/13/2024 9:45 AM TANK CAR LOADER Office Visit [facility] Oncology and Hematology [facility] [address] [facility] [address] [place] [address] [place] [address] Glenn Al MD [address] [facility] [address] [place] [address] documented as of this encounter Procedures Procedure Name Priority Date/Time Associated Diagnosis Comments CBC WITH DIFFERENTIAL Routine 03/22/2020 10:44 AM CDT Prostate cancer PSA Routine 03/22/2020 10:44 AM CDT Prostate cancer COMPREHENSIVE METABOLIC PANEL Routine 03/22/2020 10:44 AM CDT Prostate cancer documented in this encounter Results * PSA (03/22/2020 10:44 AM CDT) PSA <0.1 <4.0 ng/mL 03/22/2020 11:33 AM CDT [facility] Blood Venipuncture / Unknown 03/22/2020 10:44 AM CDT 03/22/2020 10:54 AM CDT Narrative [facility] - 03/22/2020 11:33 AM CDT The concentration of PSA in a given specimen, as determined by assays from different manufacturers, can vary because of differences in assay methods and reagent specificity. Values obtained with different assay methods cannot be used interchangeably. The testing method in use is the WILLIAM Electrochemiluminescence Immunoassay. Kailyn Blood MD CHEMISTRY ORDERABLES [facility] CLIA# [id number] [address] [facility] [place] [address] * (ABNORMAL) COMPREHENSIVE METABOLIC PANEL (03/22/2020 10:44 AM CDT) [facility] SODIUM 140 136 - 145 mmol/L 03/22/2020 11:21 AM [facility] [employer] [facility] - [facility] POTASSIUM 4.7 3.5 - 5.0 mmol/L 03/22/2020 11:21 AM [facility] CHLORIDE 100 98 - 107 mmol/L 03/22/2020 11:21 AM [facility] - . [place] CO2 28 22 - 29 mmol/L 03/22/2020 11:21 AM [facility] [employer] [facility] - [facility] CALCIUM 9.4 8.6 - 10.2 mg/dL 03/22/2020 11:21 AM [employer] [facility] - . [facility] BUN 21 8 - 23 mg/dL 03/22/2020 11:21 AM [facility] [employer] [facility] - [facility] CREATININE 0.79 0.67 - 1.17 mg/dL 03/22/2020 11:21 AM [facility] LABORATORY SERVICES [facility] Comment:The GFR result is no t clinically significant on patients <18 or >70 years of age. GLUCOSE 109(H) 74 - 99 mg/dL 03/22/2020 11:21 AM [facility]ORATORY SERVICES [facility] TOTAL PROTEIN 7.6 6.7 - 8.6 g/dL 03/22/2020 11:21 AM [employer] ALBUMIN 4.8 3.5 - 5.2 g/dL 03/22/2020 11:21 AM [facility] BILIRUBIN TOTAL 0.2 0.2 - 1.1 mg/dL 03/22/2020 11:21 AM [facility] LABORATORY SERVICES [facility] ALKALINE PHOSPHATASE 73 40 - 129 U/L 03/22/2020 11:21 AM [facility] AST 27 <41 U/L 03/22/2020 11:21 AM [facility] ALT 21 <42 U/L 03/22/2020 11:21 AM [employer] GFR >60 mL/min/1.7 3 sq meter 03/22/2020 11:21 AM [facility] Comment: eGFR has not been validated [...] result. GFR, >60 mL/min/1.7 3 sq meter 03/22/2020 11:21 AM T [facility] LABORATORY [facility] ANION GAP 12 8 - 16 mmol/L 03/22/2020 11:21 AM [facility] Blood Venipuncture / Unknown 03/22/2020 10:44 AM CDT 03/22/2020 10:54 AM CDT Narrative [facility] - 03/22/2020 11:21 AM CDT Samples containing indocyanine green cause interferences on Total and/or Direct Bilirubin and must not be measured. Kailyn Blood MD CHEMISTRY ORDERABLES [facility]# [id number] [address] [facility] [place] [address] * (ABNORMAL) CBC WITH DIFFERENTIAL (03/22/2020 10:44 AM CDT) WBC 12.5(H) 4.0 - 9.8 K/uL 03/22/2020 10:58 AM CDT [facility] RBC 4.36(L) 4.50 - 5.40 M/uL 03/22/2020 10:58 AM T [facility] HEMOGLOBIN 14.3 13.6 - 16.5 g/dL 03/22/2020 10:58 AM CDT [facility] HEMATOCRIT 42.9 40.0 - 48.0 % 03/22/2020 10:58 AM CDT [facility] MCV 98.4 82.0 - 99.0 fL 03/22/2020 10:58 AM CDT [facility] MCH 32.8(H) 27.2 - 32.6 pg 03/22/2020 10:58 AM CDT [facility] MCHC 33.3 31.5 - 35.5 g/dL 03/22/2020 10:58 AM CDT [facility] RDW 12.9 11.5 - 14.5 % 03/22/2020 10:58 AM CDT [facility] RDW-STDEV 46.3 37.1 - 48.7 fL 03/22/2020 10:58 AM CDT [facility] PLATELETS 255 140 - 350 K/uL 03/22/2020 10:58 AM CDT [facility] MPV 10.2 9.3 - 12.4 fL 03/22/2020 10:58 AM [employer] [facility] NEUTROPHILS 59 % 03/22/2020 10:58 AM CDT [facility] LYMPHOCYTES 29 % 03/22/2020 10:58 AM CDT [facility] MONOCYTES 7 % 03/22/2020 10:58 AM CDT [facility] EOSINOPHILS 4 % 03/22/2020 10:58 AM CDT [facility] BASOPHILS 1 % 03/22/2020 10:58 AM CDT [facility] IMMATURE GRANULOCYTES 0 % 03/22/2020 10:58 AM CDT [facility] NEUTROPHIL ABSOLUTE 7.33(H) 1.90 - 7.00 K/uL 03/22/2020 10:58 AM CDT [facility] LYMPHOCYTE ABSOLUTE 3.65 0.70 - 4.50 K/uL 03/22/2020 10:58 AM CDT [facility] MONOCYTE ABSOLUTE 0.86 0.10 - 1.30 K/uL 03/22/2020 10:58 AM CDT [facility] EOSINOPHIL ABSOLUTE 0.51 0.00 - 0.70 K/uL 03/22/2020 10:58 AM CDT [facility] BASOPHILS ABSOLUTE 0.06 0.00 - 0.20 K/uL 03/22/2020 10:58 AM CDT [facility] IMMATURE GRANULOCYTES ABSOLUTE 0.04(H) 0.00 - 0.03 K/uL 03/22/2020 10:58 AM CDT [facility] Blood Venipuncture / Unknown 03/22/2020 10:44 AM CDT 03/22/2020 10:55 AM CDT Kailyn Blood MD HEMATOLOGY ORDERABLE S [id number] [address] [place] [address] documented in this encounter Visit Diagnoses Diagnosis Prostate cancer Malignant neoplasm of prostate documented in this encounter Care Teams Roller Billet Mill Relationship Specialty Start Date End Date Ilan Whitley DO [address] [place] [address] PCP - General 09/07/09 07/31/20 documented as of this encounter
--- OUTSIDE RECORDS SUMMARY | 2024-10-30 02:32 | XMS_ITS | Encounter Summary ---
Author Organization [facility] Address [address] [place] [address] Care Team Providers Care Ethylbenzene Converter Helper Name Role Phone TeofiloIlan strong DO Primary Care Provider Reason for Visit * Reason Comments Follow Up follow up w/labs Encounter Details Date Type Department Care Team (Late st Contact Info) Description 03/22/2020 11:20 AM CDT Office Visit [facility] ONCOLOGY AND HEMATOLOGY - [place] [address] [facility] [address] [place] [address] Kailyn Blood MD [address] [facility] [address] [place] [address] Prostate cancer (Primary Dx) Social History [...] Sign Reading Time Taken Comments Blood Pressure 134/70 03/22/2020 11:22 AM CDT Pulse 81 03/22/2020 11:22 AM CDT Temperature 37.1 ??C (98.7 ??F) 03/22/2020 1 1:22 AM CDT Respiratory Rate - - Oxygen Saturation 97% 03/22/2020 11: 22 AM CDT Inhaled Oxygen Concentration - - Weight 70.7 kg (155 lb 14.4 oz) 020 11:22 AM CDT Height 167.6 cm (5' 6 ) 03/22/2020 11:2 2 AM CDT Body Mass Index 25.16 03/22/2020 11:22 AM CDT documented in this encounter Progress Notes * Kailny Blood MD - 03/22/2020 12:21 PM CDT Hematology Oncology Follow up DIAGNOSIS [...] Neuro: No obvious focal deficit LABS WBC 12.5 Hgb 14.3 plt 255 PSA <0.1 ASSESSMENT/PLAN 1. Prostate cancer. Tolerated treatment well. PSA is undetectable. Continue Lupron today. 2. RLL nodule. Unable to biopsy b/o the location. Can't r/o lung cancer. Will repeat CT in 2 monthsfor further evaluation. 3. Will continue Xgeva for bone mets today. Patient will follow-up with me in 6 weeks. René Blood MD [facility] Oncology and Hematology [facility] documented in this encounter Plan of Treatment Upcoming Encounters Date Type Department Care Team (Late st Contact Info) Description 12/13/2024 9:45 AM SENIOR INFRASTRUCTURE ARCHITECT Office Visit [facility] Oncology and Hematology [facility] [address] [facility] 200 [place] [phone] Glenn Al MD [address] [facility] [address] [place] [address] documented as of this encounter Visit Diagnoses Diagnosis Prostate cancer- Primary Malignant neoplasm of prostate documented in this encounter Care Teams Ethylbenzene Converter Helper Relationship Specialty Start Date End Date Ilan Whitley DO [address] [place] [address] PCP - General 09/07/09 07/31/20 documented as of this encounter
--- OUTSIDE RECORDS SUMMARY | 2024-10-30 02:33 | XMS_ITS | Encounter Summary ---
Author Organization [facility] Address [address] [place] [address] Care Team Providers Care Product Inspection Supervisor Name Role Phone TeofilorgaaronIlan bennett DO Primary Care Provider Reason for Visit * Reason Comments Establish Care Encounter Details Date Type Department Care Team (Latest Contact Info) Description 06/03/2017 12:15 PM CDT Office Visit [facility] [place] [address] [facility] [address] [place] [address] Eleazar Mishra MD [address] [place] [address] [address] [place] [address] Essential hypertension (Primary Dx); Hyperlipidemia, unspecified hyperlipidemia type; Chest tightness Social History Tobacco Use Types Packs/Day Years [...] Sign Reading Time Taken Comments Blood Pressure 140/66 06/03/2017 11:59 AM CDT Pulse 78 06/03/2017 11:59 AM CDT Temperature - - Respiratory Rate - - Oxygen Saturation 97% 06/03/2017 11:59 AM CDT Inhaled Oxygen Concentration - - Weight 72.6 kg (160 lb) 06/03/2017 11:59 AM CDT Height 167.6 cm (5' 6 ) 06/03/2017 11:59 AM CDT Body Mass Index 25.82 06/03/2017 11:59 AM CDT documented in this encounter Progress Notes * Eleazar Mishra MD - 06/03/2017 12:16 PM CDT HISTORY OF PRESENT ILLNESS Ilan Mccauley, a 76 y.o. male presents with a Chief Complaint of Establish Care Subjective HPI Patient here for evaluation of chest tightness. Active until less than last year. Started having localized discomfort on the left chest. Ended up slowing down b/c of it. He can walk about 2 to 3 miles but it is much less than what he is used to. During these walks, patient experiences chest tightness in the left upper chest area. ON a scale of 10, it never gets worse than a 5. No SOB or nausea associated. Has progressed over the past 6 months or so. NO rest symptoms.. Stress test last year which Dr. Jacobsen. Labs recently with PCP. Current Outpatient Prescriptions Medication Sig Dispense Refill ??? OMEGA-3 FATTY ACIDS (FISH OIL ORAL) Take by mouth daily. ??? irbesartan (AVAPRO) 150 mg tablet Take 150 mg by mouth daily. ??? tamsulosin (FLOMAX) 0.4 mg capsule Take 0.4 mg by mouth daily. No current facility-administered medications for this visit. All: Codeine, Bystolic PMH: HTN, HLD, Prostate CA, ED SH: . Quit tobacco in 68. FH: CHF in maternal GM REVIEW OF SYSTEMS Review of Systems Constitutional: Positive for fatigue. Negative for chills and fever. HENT: Positive for nosebleeds. Respiratory: Positive for chest tightness. Negative for shortness of breath. Cardiovascular: Negative for chest pain. Gastrointestinal: Negative for blood in stool. Genitourinary: Negative for hematuria. Musculoskeletal: Negative for arthralgias. Skin: Negative for wound. Neurological: Negative for syncope. Hematological: Does not bruise/bleed easily. Psychiatric/Behavioral: Negative for agitation. Objective PHYSICAL EXAM BP (!) 140/66 Pulse 78 Ht 5' 6 (1.676 m) Wt 72.6 kg (160 lb) SpO2 97% BMI 25.82 kg/m2 Physical Exam Constitutional: He is oriented to person, place, and time. No distress. HENT: Head: Atraumatic. Eyes: No scleral icterus. Neck: Neck supple. Cardiovascular: Normal rate and regular rhythm. Murmur (soft HSM.) heard. Pulmonary/Chest: Effort normal and breath sounds normal. No respiratory distress. Musculoskeletal: He exhibits no edema. NO clubbing or cyanosis. Neurological: He is alert and oriented to person, place, and time. Skin: Skin is warm. Psychiatric: He has a normal mood and affect. His behavior is normal. Assessment ASSESSMENT and PLAN: 1) Chest tightness with exertion / Fatigue 2) HTN 3) HLD Given progressive nature of symptoms, I recommend LHP. Went over the risks and benefits. In the meantime, advised patient to take aspirin 81 mg daily with meals. Also, if we do proceed with LHP, patient will need to be premedicated with prednisone prior to cathgiven patient's h/o shellfish allergy. He will consider taking IMDUR (or isosorbide mononitrate.) He would like to d/w and his PCP before making decision. Heart healthy lifestyle. FU with me after cath. * Gila Gomez - 06/03/2017 11:59 AM CDT Patient is a new patient here to get established and complaining of chest discomfort and tightness.The patient stated that this has increased over the last 6 months. documented in this encounter Miscellaneous Notes * Patient Instructions - Eleazar Mishra MD - 06/03/2017 12:40 PM CDT Given progressive nature of symptoms, I recommend LHP. Went over the risks and benefits. In the meantime, advised patient to take aspirin 81 mg daily with meals. Also, if we do proceed with LHP, patient will need to be premedicated with prednisone prior to cathgiven patient's h/o shellfish allergy. He will consider taking IMDUR (or isosorbide mononitrate.) He would like to d/w and his PCP before making decision. Heart healthy lifestyle. FU with me after cath. documented in this encounter Plan of Treatment Upcoming Encounters Date Type Department Care Team (Late st Contact Info) Description 12/13/2024 9:45 AM WEBSPHERE PORTAL DEVELOPER Office Visit [facility] Oncology and Hematology - [place] [address] [facility] [address] [place] [address] Glenn lA MD [address] [facility] [address] [place] [address] documented as of this encounter Visit Diagnoses Diagnosis Essential hypertension- Primary Unspecified essential hypertension Hyperlipidemia, unspecified hyperlipidemia type Chest tightness Other chest pain documented in this encounter Care Teams Product Inspection Supervisor Relationship Specialty Start Date End Date Ilan Whitley DO [address] [place] [phone] PCP - General 09/07/09 07/31/20 documented as of this encounter
--- OUTSIDE RECORDS SUMMARY | 2024-10-30 02:33 | XMS_ITS | Encounter Summary ---
Author Organization [facility] Address [address] [place] [address] Care Team Providers Care Car Stereo Installer Name Role Phone Ilan Whitley DO Primary Care Provider Reason for Visit * Reason Comments Follow Up Navigation Encounter Details Date Type Department Care Team (Late st Contact Info) Description 12/05/2019 Chart Note [facility] Oncology Patient Navigation [address] [place] [address] Nora Milligan, RN Follow Up (Navigation) Social History Tobacco Use Types Packs/Day Years [...] Progress Notes * Nora Goode RN - 12/05/2019 3:21 PM CST Cancer Support Services Note: Patient navigation call to inform of some of the resources available at the cancer information center including nurse navigation, support, and educational resources. Reviewed role of navigator, social media job titles, business system consultant, and overhead crane technician & how to access. Invited to [facility] at patient's convenience. Discussed in detail next steps. Nora Goode RN, BSN Oncology Nurse Navigator SHREDDER TENDER documented in this encounter Plan of Treatment Upcoming Encounters Date Type Department Care Team (Late st Contact Info) Description 12/13/2024 9:45 AM PEAT SHREDDER TENDER Office Visit [facility] Oncology and Hematology - [place] [address] [facility] [address] [place] [address] Glenn Al MD [address] [facility] [address] [place] [address] documented as of this encounter Visit Diagnoses Not on filedocumented in this encounter Care Teams Car Stereo Installer Relationship Specialty Start Date End Date Ilan Whitley DO [address] [place] [address] PCP - General 09/07/09 07/31/20 documented as of this encounter
--- OUTSIDE RECORDS SUMMARY | 2024-10-30 02:33 | XMS_ITS | Encounter Summary ---
Author Organization [employer] [facility] Address [address] [place] [address] Care Team Providers Care Electronics Repair Technician Name Role Phone GutierrezIlan Primary Care Provider Reason for Visit * Auth/Cert Specialty Diagnoses / Procedures Referred By Cecile t Referred To Contact General Surgery Diagnoses Prostate cancer Solitary lung nodule Procedures CT GUIDED BIOPSY [facility] [address] [place] [address] Referral ID Status Reason Start Date Expiration Date Visits Re quested Visits Authorized [id number] 1 1 Encounter Details Date Type Department Care Team (Late st Contact Info) Description 12/12/2019 10:25 AM AMPLIFIER MECHANIC Anesthesia Event [facility] CT Scan S [facility] [address] [place] [address] Bipin Arellano MD [address] [place] [address] Anesthesia Record Procedure Summary Procedure Name Responsible Anesthesiologist Anesthesia Start Time Anesthesia Stop Time CT GUIDED BIOPSY Bipin Arellano MD 12/12/19 1025 12/03 1105 Events Date Time Event Comment 12/12/2019 1016 AN Equip Check Anesthesia eq uipment and materials checked in accordance with local policy. 1025 An Start 1025 An Start Data 1027 Pre-Induction Immediate pre- induction anesthetic assessment performed. Vital signs as noted on graphic. 1032 An Induction 1032 Anesthesia Ready 1059 an stop data 1105 An Stop 1122 Meds Name Total lidocaine PF (XYLOCAINE MPF) 20 mg/mL sy ringe 60 mg propofol (DIPRIVAN) 10??mg/mL injection 50 mg midazolam PF (VERSED) 1 mg/mL injection 2 mg fentaNYL (SUBLIMAZE) PF 50??mcg/mL injec tion 100 mcg lactated ringers infusion 400 mL * Agents Name Sevoflurane % Sevoflurane O2 N2O Inspired N2O O2 * Blood No blood administrations on file. Lines, Drains, and Airways Type Details Placement Removal Wound 07/20/12; No; (troca r sites); abdomen; incision 07/20/12 0000 by Mikael Petty RN Wound 12/12/19; 1045; No; 1; Left, upper; gluteal; puncture 12/12/19 1045 by Palak Paulino RN Peripheral IV Pre-Hospital Start: No; Orientation: Left; Location: Arm; Device: Angiocath; Gauge: 20 gauge; Needle Length: 1 in length; Insertion Attempts: 1; Patient Tolerance: tolerated well 12/12/19 0817 by Susie Younger RN 12/12/19 1209 by Susie Younger, JORGE ALBERTO Supraglottic Airway Type: nasal cannula; Confirmation: satisfactory chest rise, SAO2, end tidal CO2 12/12/19 1027 by Geri Huntley AA-C 12/12/19 1209 by Susie Younger RN documented in this encounter Social History Tobacco Use Types Packs/Day Years Used Date Smoking Tobacco: Former Cigarettes Q uit: 11/02/1967 Smokeless Tobacco: Never Alcohol Use Standard Drinks/Week Comments No 0 (1 standard drink = 0.6 oz pur e alcohol) Sex and Gender Information Value Date Recorded Sex Assigned at Not on file Gender Identity Not on file Sexual Orientation Not on file documented as of this encounter OR Notes * Anesthesia Postprocedure Evaluation - Geri Huntley AA-C - 12/12/2019 11:32 AM CST Post Anesthesia Evaluation Vitals: Vitals Value Taken Time BP 107/65 12/12/2019 11:10 AM Temp 36.8 ??C 12/12/2019 11:10 AM Resp 20 12/12/2019 11:10 AM SpO2 97 % 12/12/2019 11:10 AM Pulse 65 12/12/2019 11:10 AM Heart Rate Pain Rating: Pain Rating: Activity: 0 (12/12/19 1118) Anesthesia Post Evaluation RASHI Phelps IFIER MECHANIC * Anesthesia Handoff - Geri Huntley AA-C - 12/12/2019 11:32 AM CST Post-Anesthetic transfer of care report elements to appropriate post-anesthesia recovery environment completed in accordance with procedure. I completed my handoff to the receiving nurse during which we: 1. Identified the patient 2. Identified the responsible provider 3. Reviewed the pertinent medical history 4. Discussed the surgical course 5. Reviewed intra-op anesthesia management and issues during anesthesia 6. Set expectations for post-procedure period 7. Orders as necessary and appropriate for continuation of care are present in Epic. 8. Allowed opportunity for questions and acknowledgement of understanding. Vital Signs: BP: 107/65 (12/12/2019 11:10 AM) Pulse: 65 (12/12/2019 11:10 AM) Temp: 36.8 ??C (12/12/2019 11:10 AM) Resp: 20 (12/12/2019 11:10 AM) SpO2: 97 % (12/12/2019 11:10 AM) 11:32 AM RASHI Phelps IFIER MECHANIC * Anesthesia Preprocedure Evaluation - Bipin Arellano MD - 12/12/2019 11:21 AM CST Relevant Problems No relevant active problems Anesthesia Evaluation Patient summary reviewed Airway TM distance: >3 FB Neck ROM: full Dental - normal exam Pulmonary - negative ROS and normal exam breath sounds clear to auscultation Cardiovascular - negative ROS and normal exam (+) hypertension, Rhythm: regular Rate: normal ROS comment: htn No cp angina, no known ASCAD, good et Neuro/Psych - negative ROS GI/Hepatic/Renal - negative ROS Endo/Other - negative ROS Abdominal Anesthesia History Anesthesia Plan ASA Final: 2 MAC Intravenous induction NPO status > 8 hours Anesthetic plan and risks discussed with Patient. Plan discussed with Surgeon and Other. Post-op Pain Control Plan to use IV or IM medication for post-op pain control. Smoking Compliance Patient did not smoke on day of surgery IFIER MECHANIC documented in this encounter Plan of Treatment Upcoming Encounters Date Type Department Care Team (Late st Contact Info) Description 12/13/2024 9:45 AM AMPLIFIER MECHANIC Office Visit [facility] Oncology and Hematology - [place] [address] [facility] [address] [place] [address] Glenn Al MD [address] [facility] [address] [place] [address] documented as of this encounter Visit Diagnoses Not on filedocumented in this encounter Administered Medications Inactive Administered Medications - up to 3 most recent administrations Medication Order MAR Action Action Date Dose Rate Site fentaNYL PF (SUBLIMAZE) 50 mcg/mL injection INTRA-PROCEDURE PRN, Starting on Thu12/12/19 at 1033, Until Thu12/12/19 at 1132, Routine, Anesthesia Intra-op Given 12/12/2019 10:33 AM AMPLIFIER MECHANIC 100 mcg lactated ringers infusion INTRA-PROCEDURE CONTINUOUS PRN, Starting on Thu12/12/19 at 1000, Until Thu12/12/19 at 1132, Routine, Anesthesia Intra-op New Bag 12/12/2019 10:00 AM AMPLIFIER MECHANIC lidocaine (PF) (XYLOCAINE MPF) 60 mg/3 mL (2 %) injection syringe INTRA-PROCEDURE PRN, Starting on Thu12/12/19 at 1032, Until Thu12/12/19 at 1132, Routine, Anesthesia Intra-op Given 12/12/2019 10:32 AM AMPLIFIER MECHANIC 60 mg midazolam (PF) (VERSED) injection INTRA-PROCEDURE PRN, Starting on Thu12/12/19 at 1027, Until Thu12/12/19 at 1132, Routine, Anesthesia Intra-op Given 12/12/2019 10:27 AM AMPLIFIER MECHANIC 2 mg propofol (DIPRIVAN) injection INTRA-PROCEDURE PRN, Starting on Thu12/12/19 at 1042, Until Thu12/12/19 at 1132, Anesthesia Intra-op Given 12/12/2019 10:42 AM AMPLIFIER MECHANIC 50 mg documented in this encounter Care Teams Electronics Repair Technician Relationship Specialty Start Date End Date Ilna Whitley DO [address] [facility] [address] [place] [address] PCP - General 09/07/09 07/31/20 documented as of this encounter
--- OUTSIDE RECORDS SUMMARY | 2024-10-30 02:33 | XMS_ITS | Encounter Summary ---
Author Organization [facility] Address [address] [place] [address] Care Team Providers Care Cemetery Manager Name Role Phone TeofilojanisshandaIlan DO Primary Care Provider Encounter Details Date Type Department Care Team (Late Contact Info) Description 06/05/2017 Orders Only [facility] At [address] [place] [address] Provider, Abstract NO ADDRESS ON FILE Social [...] (Late Contact Info) Description 12/13/2024 9:45 AM INCINERATOR PLANT GENERAL SUPERVISOR Office Visit [facility] Oncology and Hematology - [place] [address] [facility] [address] [place] [address] Glenn Al MD [address] [facility] [address] [place] [address] documented as of this encounter Procedures Procedure Name Priority Date/Time Associated Diagnosis Comments ECHO STRESS W CONTRAST EXERCISE Routine 09/23/2016 documented in this encounter Results * ECHO STRESS W CONTRAST EXERCISE (09/23/2016) Abstract Provider US ORDERABLES EXTERNAL RADIOLOGY documented in this encounter Visit Diagnoses Not on filedocumented in this encounter Care Teams Cemetery Manager Relationship Specialty Start Date End Date Ilan Whitley DO [address] [place] [address] PCP - General 09/07/09 07/31/20 documented as of this encounter
--- OUTSIDE RECORDS SUMMARY | 2024-10-30 02:33 | XMS_ITS | Encounter Summary ---
Author Organization [facility] Address [address] [place] [address] Care Team Providers Care Substation Operator Helper Generation Name Role Phone TeofilorgaaronIlan bennett DO Primary Care Provider Reason for Visit * Reason Comments Follow Up Labs, Distress is a 6 Encounter Details Date Type Department Care Team (Late st Contact Info) Description 12/21/2019 11:20 AM SHIPPING SPECIALIST Office Visit [facility] [place] [address] [facility] [address] [place] [address] Kailyn Blood MD [address] [facility] [address] [place] [address] Prostate cancer (Primary Dx) Social History [...] Sign Reading Time Taken Comments Blood Pressure 124/70 12/21/2019 11:05 AM SHIPPING SPECIALIST Pulse 60 12/21/2019 11:05 AM SHIPPING SPECIALIST Temperature 36.8 ??C (98.2 ??F) 12/21/2019 11:[address] Respiratory Rate 16 12/21/2019 11:05 AM SHIPPING SPECIALIST Oxygen Saturation - - Inhaled Oxygen Concentration - - Weight 68.2 kg (150 lb 4.8 oz) 12/21/2019 11:05 AM SHIPPING SPECIALIST Height 172.7 cm (5' 8 ) 12/21/2019 11:05 AM SHIPPING SPECIALIST Body Mass Index 22.85 12/21/2019 11:05 AM SHIPPING SPECIALIST documented in this encounter Progress Notes * Kailyn Blood MD - 12/21/2019 11:06 AM CST Hematology Oncology Follow up DIAGNOSIS Metastatic prostate cancer, [place] score 8, with right acetabulum met in 11/2019 Right lung nodule CURRENT TREATMENT Lupron/Casodex TREATMENT HISTORY SUBJECTIVE Patient returns today for reevaluation. The [...] Neuro: No obvious focal deficit LABS WBC 7.4 Hgb 14.3 plt 227 PSA 14.7 ASSESSMENT/PLAN 1. Prostate cancer. Will start him on Lupron today. Continue Casodex for 3 more weeks. Monitor PSA. 2. RLL nodule. Unable to biopsy b/o the location. Can't r/o lung cancer. Will repeat CT in 3 monthsfor further evaluation after Lupron. 3. Will start him on Xgeva for bone mets in 4 weeks. Patient will follow-up with me in 4 weeks. René Blood MD [facility] Oncology and Hematology [facility] PING SPECIALIST documented in this encounter Plan of Treatment Upcoming Encounters Date Type Department Care Team (Late st Contact Info) Description 12/13/2024 9:45 AM SHIPPING SPECIALIST [facility] On[facility] Hematology [facility] [address] [facility] [address] [place] [address] Glenn Al MD [address] [facility] [address] [place] [address] documented as of this encounter Visit Diagnoses Diagnosis Prostate cancer- Primary Malignant neoplasm of prostate documented in this encounter Care Teams Substation Operator Helper Generation Relationship Specialty Start Date End Date Ilan Whitley DO [address] [place] [address] PCP - General 09/07/09 07/31/20 documented as of this encounter
--- OUTSIDE RECORDS SUMMARY | 2024-10-30 02:33 | XMS_ITS | Encounter Summary ---
Author Organization [facility] Address [address] [place] [address] Care Team Providers Care Lusterer Name Role Phone Ilan Whitley DO Primary Care Provider Reason for Visit * Reason Comments Nurse Navigation Follow up Encounter Details Date Type Department Care Team (Late st Contact Info) Description 12/15/2019 Chart Note [facility] Oncology Patient Navigation [address] [place] [address] Giovanna Huerta, RN Nurse Navigation (Follow up) Social History Tobacco Use Types Packs/Day Years [...] as of this encounter Progress Notes * Giovanna Huerta, RN - 12/15/2019 11:33 AM CST Cancer Center Services Note: Patient called navigation regarding his Casodex prescription from Dr Blood. Introduced self, explained that his assigned navigator was out of the office. Patient stated thathe tried to call Dr Blood's office to inform them that rx required PA and that [facility] had faxed theform over yesterday. Patient was to start the medication one week prior to 12/21 appointment with Christina and patient was hoping to avoid delay. Patient frustrated that he had to leave a message and could not speak directly with office. Informed patient how calls are triaged through Dr Blood's office and patient verbalized understanding and was appreciative in the explanation. Patient stated he was considering purchasing medication out of pocket until PA approved. Recommended that he discuss options with pharmacy including if he could be reimbursed once PA approved. Patient verbalized understanding. Informed patient that this would be discussed with Dr Blood's office and he would receive a follow up call. Patient verbalized understanding and appreciation. Will continue to follow patient through his assigned navigator's absence. [id number] Follow up call to patient to determine if he had heard from Dr Blood's office/resolution to rx concerns. Patient stated that since speaking with navigation, [facility]. Patient appreciative of assistance. Encouraged patient to call navigation with any further questions or concerns. Patient verbalized understanding. Giovanna Huerta RN, OCN Oncology Nurse Navigator CONSULTANT documented in this encounter Plan of Treatment Upcoming Encounters Date Type Department Care Team (Late st Contact Info) Description 12/13/2024 9:45 AM SFDC CONSULTANT Office Visit [facility] Oncology and Hematology - [place] [address] [facility] [address] [place] [address] Glenn Al MD [address] [facility] [address] [place] [address] documented as of this encounter Visit Diagnoses Not on filedocumented in this encounter Care Teams Lusterer Relationship Specialty Start Date End Date Ilan Whitley DO [address] [place] [address] PCP - General 09/07/09 07/31/20 documented as of this encounter
--- OUTSIDE RECORDS SUMMARY | 2024-10-30 02:33 | XMS_ITS | Encounter Summary ---
Author Organization [facility] Address [address] [place] [address] Care Team Providers Care Leather Production Worker Name Role Phone GutierrezIlan DO Primary Care Provider Reason for Visit * Reason Comments Other weak stream, LUTS, r eview suspicious lesions on CT Encounter Details Date Type Department Care Team (Late st Contact Info) Description 11/30/2019 10:50 AM PHOTO CARTOGRAPHER Office Visit [facility] [place] [address] [facility] [address] [place] [address] Jb Villanueva MD NO ADDRESS ON FILE Elevated PSA (Primary Dx); Prostate cancer metastatic to bone Social History Tobacco Use [...] as of this encounter Progress Notes * Jb Villanueva MD - 12/06/2019 6:33 AM CST 11/30/2019 CHIEF COMPLAINT: Chief Complaint Patient presents with ??? Other weak stream, LUTS, review suspicious lesions on CT Assessment: ICD-10-CM ICD-9-CM 1. Elevated PSA R97.20 790.93 2. Prostate cancer metastatic to bone C61 185 C79.51 198.5 Plan: Office cystoscopy was canceled today secondary to discussion of a likely new diagnosis of metastatic prostate cancer to bone and potentially lung. Patient reported back to the office today with records of his outside PSA check which were approximately 9.7, this represents a significant increase in PSA since his last one performed was below 1. I had an extensive discussion today with the patient and his regarding the meaning behind this elevation PSA and the suspicious lesion seen on CT scan. I believe the next best step for him would be to have him see hematology and oncology CONNIE. I will send him a referral to Dr. Blood of oncology for further management and work-up. In regards to his office cystoscopy and lower urinary tract symptoms, we will hold off for now until we get the aforementioned plan worked out. Jb Villanueva MD Subjective: 79 y.o. year old male with history of prostate cancer treated with radical prostatectomy back in 2011 presenting to my office with urinary complaints. His jerrod score was 4+4=8 and final path was T3a, no SV invasion, he did have extracapsular extension but margins were neagtive. Lymph node dissection also negative. He reports he has been getting PSA's from his PCP, with a reported elevation on most recent check that I do not have. He has noticed over the course of the last several months thathe has developed weak flow with incomplete bladder emptying. He does have frequency of urination. He denies any associated hematuria or dysuria. No flank pain or fever. He does have a remote history of passing kidney stones. No chest pain or shortness of breath. No fevers or chills. 11/30/2019: Patient returns the clinic today for office cystoscopy. He reports no change in his lower urinary tract symptoms. He is having no fevers or chills. He has no chest pain or shortness of breath. He has no hematuria or dysuria. He has no nausea, vomiting or abdominal pain. Lab Results Component Value Date/Time PSA 0.3 06/07/2013 08:24 AM PSA <0.1 03/07/2013 08:39 AM PSA <0.1 12/02/2012 07:51 AM PSASCRN 1.6 09/25/2010 02:05 PM There were no vitals taken for this visit. Patient Active Problem List Diagnosis Date Noted ??? 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 Overview Note: [...] neoplasms, colon 09/07/2009 ??? Allergic rhinitis 09/07/2009 Current Outpatient Medications Medication Sig Dispense Refill ??? OMEGA-3 FATTY ACIDS (FISH OIL ORAL) Take by mouth daily. ??? irbesartan (AVAPRO) 150 mg tablet Take 150 mg by mouth daily. No current facility-administered medications for this visit. Allergies Allergen Reactions ??? Codeine Nausea and Vomiting Makes patient extremely ill ??? Bystolic [Nebivolol] Bradycardia Past Surgical History: Procedure Laterality Date ??? BIOPSY PROSTATE 06/13 cancer ??? CHG ANES COLONOSCOPY,BIOPSY 2007 polyps ??? CHG ANES COLONOSCOPY,BIOPSY 09/12 wnl, no polyps. tics ??? HOLTER MONITOR wnl ??? HX APPENDECTOMY age 14 ??? AZ LAP,LYMPHATIC SYSTEM,OTHER PROC 07/20/2012 LYMPH NODE DISSECTION DAVINCI SI LAPAROSCOPIC performed by Giancarlo Azar MD at [facility] ??? [place] LAP,PROSTATECTOMY,RADICAL,W/NERVE SPARE,INCL ROBOTIC 07/20/2012 PROSTATECTOMY RADICAL DAVINCI SI LAPAROSCOPIC performed by Giancarlo Azar MD at [facility] OR [facility] ??? STRESS ECHO W CONTRAST 06/12 [...] level: Not on file Occupational History Employer: [employer] Social Needs ??? Financial resource strain: Not on file ??? Food insecurity: Worry: Not on file Inability: Not on file ??? Transportation needs: Medical: Not on file Non-medical: Not on file Tobacco Use ??? Smoking status: Former Smoker Last attempt to quit: 11/02/1967 Years since quittin.1 ??? Smokeless tobacco: Never Used Substance and Sexual Activity ??? Alcohol use: No ??? Drug use: No ??? Sexual activity: Yes Lifestyle ??? Physical activity: Days per week: Not on file Minutes per session: Not on file ??? Stress: Not on file Relationships ??? Social connections: Talks on phone: Not on file Gets together: Not on file Attends sikhism service: Not on file Active member of [...] Social History Narrative ??? Not on file TOBACCO COUNSELING He is not a tobacco user. ROS: Constitutional: negative. Ears, nose, mouth, throat, and face: negative. Eyes: negative. Cardiovascular: negative. Respiratory: negative. Gastrointestinal: negative. Genitourinary: See HPI. Hematologic/lymphatic: negative. Integument/breast: negative. Musculoskeletal: negative. Neurological: negative. Objective: Physical Exam: Constitutional: There is no height or weight on file to calculate BMI. Appearance -- normal for stated age. No acute distress. Eyes: Sclera -- normal Pupils -- reactive Ears/Nose/Mouth/Throat: Ears/Nose: Ears Normal. Nares normal Oropharynx: Clear Neck -- trachea midline, no thyromegaly Cardiovascular: Regular rate, rhythym. Peripheral edema -- no edema Respiratory: Effort -- normal. Gastrointestinal: Abdomen -- Soft, non-tender.No masses, No organomegaly. Hernia -- none. Back: No spinal tenderness. Musculoskeletal: Gait/station -- normal Mobility -- normal Neurologic: No focal motor or sensory deficits Lymphatic: Normal neck, inguinal Genitourinary: Anus/Perineum -- Anus was intact, no lesions, no rashes, no fissures/fistulas. Scrotum -- No lesions, no rashes. Testes -- No masses, nontender, symmetrical. Epididymes -- No masses, non-enlarged, symmetrical. Meatus -- Normal location, no discharge. Penis -- No phimosis, no plaque, no masses. CINDY -- Normal sphincter tone, no masses. Seminal vesicles -- not palpable Prostate -- Fossa is empty from previous prostatectomy, nodeveloping masses appreciated. Data Reviewed -- yes No results found for this visit on 11/30/19 (from the past 24 hour(s)). Jb Villanueva MD Some of this encounter was transcribed using [employer] Naturally Speaking computerized voice recognition without a human bobbin sorter. This report may or may not have been adjusted for typographicalor medical and syntax errors. O CARTOGRAPHER documented in this encounter Plan of Treatment Upcoming Encounters Date Type Department Care Team (Late st Contact Info) Description 12/13/2024 9:45 AM PHOTO CARTOGRAPHER Office Visit [facility] Oncology and Hematology - [place] [address] [facility] [address] [place] [address] Glenn Al MD [address] [facility] [address] [place] [address] documented as of this encounter Visit Diagnoses Diagnosis Elevated PSA- Primary Elevated prostate specific antigen (PSA) Prostate cancer metastatic to bone documented in this encounter Care Teams Leather Production Worker Relationship Specialty Start Date End Date Ilan Whitley DO [address] [place] [address] PCP - General 09/07/09 07/31/20 documented as of this encounter
--- OUTSIDE RECORDS SUMMARY | 2024-10-30 02:33 | XMS_ITS | Encounter Summary ---
Author Organization [facility] Address [address] [place] [address] Care Team Providers Care Test Engineering Manager Name Role Phone Ilan Whitley Merry Primary Care Provider Reason for Referral * CT Scan (Routine) - Closed Specialty Diagnoses / Procedures Referred By Contac t Referred To Contact CT Scan Diagnoses Slow urinary stream Procedures CT ABDOMEN PELVIS WO CONTRAST Jb Villanueva MD NO ADDRESS ON FILE [facility] [address] Scan [address] [place] [address] Referral ID Status Reason Start Date Expiration Date V isits Requested Visits Authorized [id number] Closed STL CTS 11/22/2019 12/21/2019 1 1 MATIC TRANSMISSION MECHANIC Reason for Visit * Reason Comments Other weak urinary stream, history of prostate cancer Encounter Details Date Type Department Care Team (Late st Contact Info) Description 11/22/2019 11:00 AM AUTOMATIC TRANSMISSION MECHANIC Office Visit [facility] [address] [facility] [address] [place] [address] Jb Villanueva MD NO ADDRESS ON FILE Slow urinary stream (Primary Dx); History of prostate cancer; Lower urinary tract symptoms; History of kidney stones Social History Tobacco Use Types Packs/Day Years [...] Sign Reading Time Taken Comments Blood Pressure - - Pulse - - Temperature 36.7 ??C (98 ??F) 11/22/2019 10:57 AM AUTOMATIC TRANSMISSION MECHANIC Respiratory Rate 16 11/22/2019 10:57 AM AUTOMATIC TRANSMISSION MECHANIC Oxygen Saturation - - Inhaled Oxygen Concentration - - Weight - - Height 172.7 cm (5' 8 ) 11/22/2019 10:57 AM AUTOMATIC TRANSMISSION MECHANIC Body Mass Index - - documented in this encounter Progress Notes * Jb Villanueva MD - 11/22/2019 5:56 PM CST 11/22/2019 CHIEF COMPLAINT: Chief Complaint Patient presents with ??? Other weak urinary stream, history of prostate cancer Assessment: ICD-10-CM ICD-9-CM 1. Slow urinary stream R39.198 788.62 POC URINALYSIS DIPSTICK NON AUTOMATED CT ABDOMEN PELVIS WO CONTRAST 2. History of prostate cancer Z85.46 V10.46 3. Lower urinary tract symptoms R39.9 788.99 4. History of kidney stones Z87.442 V13.01 Plan: Given his lower urinary tract symptoms and obstructive voiding, I would like to perform office cystoscopy to assess for possible vesical neck contracture after prostatectomy. If present, we can perform transurethral incision of vesical neck to open and un-obstruct him. Given his history of kidney stones, will perform CT stone protocol to evaluate. I would like him to send me records of his most recent PSA as he told me he believes he has had a PSA spike. Jb Villanueva MD Subjective: 79 y.o. year [...] shortness of breath. No fevers or chills. Lab Results Component Value Date/Time PSA 0.3 06/07/2013 08:24 AM PSA <0.1 03/07/2013 08:39 AM PSA <0.1 12/02/2012 07:51 AM PSASCRN 1.6 09/25/2010 02:05 PM Temp 98 ??F (36.7 ??C) Resp 16 Ht 5' 8 (1.727 m) BMI 24.33 kg/m?? Patient Active Problem List Diagnosis Date Noted [...] wnl ??? HX APPENDECTOMY age 14 ??? VA LAP,LYMPHATIC SYSTEM,OTHER PROC 07/20/2012 LYMPH NODE DISSECTION DAVINCI SI LAPAROSCOPIC performed by Giancarlo Azar MD at [facility] OR [facility] ??? VA LAP,PROSTATECTOMY,RADICAL,W/NERVE SPARE,INCL ROBOTIC 07/20/2012 PROSTATECTOMY RADICAL DAVINCI SI LAPAROSCOPIC performed by Giancarlo Azar MD at [facility] OR [facility] ??? STRESS ECHO W CONTRAST 06/12 [...] on file Occupational History Employer: [employer] Social Needs ??? Financial resource strain: Not on file ??? Food insecurity: Worry: Not on file Inability: Not on file ??? Transportation needs: Medical: Not on file Non-medical: Not on file Tobacco Use ??? Smoking status: Former Smoker Last attempt to quit: 11/02/1967 Years since quittin.0 ??? Smokeless tobacco: Never Used Substance and [...] negative. Neurological: negative. Objective: Physical Exam: Constitutional: Body mass index is 24.33 kg/m??. Appearance -- normal for stated age. No [...] nodeveloping masses appreciated. Data Reviewed -- yes Results for orders placed or performed in visit on 11/22/19 (from the past 24 hour(s)) POC URINALYSIS DIPSTICK NON AUTOMATED Result Value Ref Range COLOR UA Yellow Pale to Dark Yellow CLARITY UA Clear Clear GLUCOSE UA Negative Negative, Normal BILIRUBIN UA Negative Negative KETONES UA Negative Negative POC SPECIFIC GRAVITY UA 1.025 1.000 - 1.030 BLOOD UA 4+ (A) Negative PH UA 8.0 5.0 - 8.0 PROTEIN UA Negative Negative UROBILINOGEN UA Normal <2.0 mg/dL NITRITE UA Negative Negative LEUKOCYTE ESTERASE UA Negative Negative KIT LOT NUMBER n KIT EXPIRATION DATE n Jb Villanueva MD Some of this encounter was transcribed using [employer] Naturally Speaking computerized voice recognition without a human building construction foreman. This report may or may not have been adjusted for typographicalor medical and syntax errors. MATIC TRANSMISSION MECHANIC documented in this encounter Plan of Treatment Upcoming Encounters Date Type Department Care Team (Late st Contact Info) Description 12/13/2024 9:45 AM AUTOMATIC TRANSMISSION MECHANIC Office Visit [facility] Oncology and Hematology [facility] [address] [address] [place] [address] Glenn Al MD [address] [facility] [address] [place] [address] documented as of this encounter Procedures Procedure Name Priority Date/Time Associated Diagnosis Comments POC URINALYSIS DIPSTICK NON AUTOMATED Routine 11/22/2019 11:05 AM AUTOMATIC TRANSMISSION MECHANIC Slow urinary stream documented in this encounter Results * CT ABDOMEN PELVIS WO CONTRAST (11/28/2019 12:03 PM AUTOMATIC TRANSMISSION MECHANIC) Anatomical Region Laterality Modality Abdomen Computed Tomogra phy 11/28/2019 12:0 7 PM AUTOMATIC TRANSMISSION MECHANIC Impressions 11/29/2019 8:53 AM AUTOMATIC TRANSMISSION MECHANIC IMPRESSION: 1. No evidence of renal calculi or obstructive uropathy. 2. Bilateral low-density renal lesions not fully characterized on this study. 3. Gallbladder wall calcification. This is an abnormal finding which can be indicative of chronic inflammation or less likely neoplasm and correlation with ultrasound recommended. 4. Area of sclerosis involving the left posterior acetabulum measuring 3.5 cm in size. Diagnostic considerations include metastatic disease. Further evaluation with bone scan recommended. 5. Irregularly-shaped nodule right lower lobe measuring 1.5 x 1.2 cm concerning for malignancy. Further evaluation with PET scan recommended. EPIC message sent. The examination was performed with the adjustment of mA according to the patient size and/or the use of Iterative Reconstruction Technique. DICTATION LOCATION: Location [address] [place], [place] [address]aleksandar Armando Narrative 11/29/2019 8:53 AM AUTOMATIC TRANSMISSION MECHANIC CT ABDOMEN AND PELVIS DATE: 11/28/2019 HISTORY: 79-year-old male with kidney stones, slow urinary stream. TECHNIQUE: ??Helical scanning of the abdomen and pelvis was performed without oral or intravenous contrast material. DLP: 380.3 mGy-cm. COMPARISON: Reference was made to ultrasound dated 11/26/2015. FINDINGS: Images through lung bases demonstrate dependent atelectasis bilaterally. There is a spiculated pulmonary nodule within the right lower lobe suspicious for malignancy. There is peribronchial thickening in both lower lobes. There is a 4 mm nodule within the left lower lobe. No definite focal liver lesion identified on this limited noncontrast CT. Gallbladder is present and there is either calcification of the wall versus a stone. The spleen is within normal limits in size. The pancreas is unremarkable. There is mild thickening of the left adrenal gland. No renal calculi are seen and there is no hydronephrosis. There is a low-density lesion in the lower pole of the right kidney measuring 5 mm, not fully characterized on this study. Lesion seen on prior ultrasound not well seen. There is a low-density lesion involving the lower pole of the left kidney measuring 6 mm. No pathologically enlarged upper abdominal or retroperitoneal lymph nodes are seen. There is atherosclerosis of the aorta and iliac arteries bilaterally. There is no pelvic lymphadenopathy. There is colonic diverticulosis without evidence of acute diverticulitis. There is a prominent amount of stool throughout the colon which can be seen with constipation. The appendix is not visualized. There is no small bowel obstruction. Duodenal diverticulum is noted. Bladder is decompressed limiting its evaluation. The prostate gland is absent. There is a sclerotic lesion involving the left posterior acetabulum measuring 3.5 cm in size. There are degenerative changes in the lumbar spine. There is a hemangioma within the L2 vertebral body. Procedure Note Edgar Schmitt MD - 11/29/2019 CT ABDOMEN AND PELVIS DATE: 11/28/2019 HISTORY: 79-year-old male with kidney stones, slow urinary stream. TECHNIQUE: Helical scanning of the abdomen and pelvis was performed without oral or intravenous contrast material. DLP: 380.3 mGy-cm. COMPARISON: Reference was made to ultrasound dated 11/26/2015. FINDINGS: Images through lung bases demonstrate dependent atelectasis bilaterally. There is a spiculated pulmonary nodule within the right lower lobe suspicious for malignancy. There is peribronchial thickening in both lower lobes. There is a 4 mm nodule within the left lower lobe. No definite focal liver lesion identified on this limited noncontrast CT. Gallbladder is present and there is either calcification of the wall versus a stone. The spleen is within normal limits in size. The pancreas is unremarkable. There is mild thickening of the left adrenal gland. No renal calculi are seen and there is no hydronephrosis. There is a low-density lesion in the lower pole of the right kidney measuring 5 mm, not fully characterized on this study. Lesion seen on prior ultrasound not well seen. There is a low-density lesion involving the lower pole of the left kidney measuring 6 mm. No pathologically enlarged upper abdominal or retroperitoneal lymph nodes are seen. There is atherosclerosis of the aorta and iliac arteries bilaterally. There is no pelvic lymphadenopathy. There is colonic diverticulosis without evidence of acute diverticulitis. There is a prominent amount of stool throughout the colon which can be seen with constipation. The appendix is not visualized. There is no small bowel obstruction. Duodenal diverticulum is noted. Bladder is decompressed limiting its evaluation. The prostate gland is absent. There is a sclerotic lesion involving the left posterior acetabulum measuring 3.5 cm in size. There are degenerative changes in the lumbar spine. There is a hemangioma within the L2 vertebral body. IMPRESSION: 1. No evidence of renal calculi or obstructive uropathy. 2. Bilateral low-density renal lesions not fully characterized on this study. 3. Gallbladder wall calcification. This is an abnormal finding which can be indicative of chronic inflammation or less likely neoplasm and correlation with ultrasound recommended. 4. Area of sclerosis involving the left posterior acetabulum measuring 3.5 cm in size. Diagnostic considerations include metastatic disease. Further evaluation with bone scan recommended. 5. Irregularly-shaped nodule right lower lobe measuring 1.5 x 1.2 cm concerning for malignancy. Further evaluation with PET scan recommended. EPIC message sent. The examination was performed with the adjustment of mA according to the patient size and/or the use of Iterative Reconstruction Technique. DICTATION LOCATION: Location [address] [facility] Jb Villanueva MD CT ORDERABLES * (ABNORMAL) POC URINALYSIS DIPSTICK NON AUTOMATED (11/22/2019 11:05 AM AUTOMATIC TRANSMISSION MECHANIC) COLOR UA Yellow Pale to Dark Yellow [facility] CLARITY UA Clear Clear [facility] GLUCOSE UA Negative Negative, Normal [facility] BILIRUBIN UA Negative Negative [facility] KETONES UA Negative Negative [facility] SPECIFIC GRAVITY UA POC 1.025 1.000 - 1.030 [facility] BLOOD UA 4+(A) Negative [facility] UROLOGY PH UA 8.0 5.0 - 8.0 [facility]OLOGY PROTEIN UA Negative Negative [facility] UROBILINOGEN UA Normal <2.0 mg/dL [facility] NITRITE UA Negative Negative [facility] LEUKOCYTE ESTERASE UA Negative Negative [facility] KIT LOT NUMBER POC n [facility] KIT EXPIRATION DATE POC n [facility] Urine 11/22/2019 11:0 5 AM AUTOMATIC TRANSMISSION MECHANIC Jb Villanueva MD POINT OF CARE TESTIN G [facility] CLIA# [id number] [address] [facility] [address] [place] [address] documented in this encounter Visit Diagnoses Diagnosis Slow urinary stream- Primary Slowing of urinary stream History of prostate cancer Personal history of malignant neoplasm of prostate Lower urinary tract symptoms Other symptoms involving urinary system History of kidney stones Personal history of urinary calculi Slow urinary stream Slowing of urinary stream documented in this encounter Care Teams Test Engineering Manager Relationship Specialty Start Date End Date Ilan Whitley DO [address] [place] [address] PCP - General 09/07/09 07/31/20 documented as of this encounter
--- OUTSIDE RECORDS SUMMARY | 2024-10-30 02:33 | XMS_ITS | Encounter Summary ---
Author Organization [facility] Address [address] [place] [address] Care Team Providers Care Hair Assistant Name Role Phone GutierrezIlan Primary Care Provider Encounter Details Date Type Department Care Team (Latest Contact Info) Description 12/14/2019 11:55 AM SUPERVISOR OPEN HEARTH STOCKYARD - 12/14/2019 11:59 PM [facility] Hospital Encounter [facility] Laboratory Services [facility] [address], [address] [place] [address] Kailyn Blood MD [address] [facility] [address] [place] [address] Discharge Disposition: Home or Self [...] on file documented as of this encounter Medications at [...] Contact Info) Description 12/13/2024 9:45 AM SUPERVISOR OPEN HEARTH STOCKYARD Office Visit [facility] Oncology and Hematology - [place] [address] [facility] [address] [place] [address] Glenn Al MD [address] [facility] [address] [place] [address] documented as of this encounter Procedures Procedure Name Priority Date/Time Associated Diagnosis Comments CBC WITH DIFFERENTIAL Routine 12/14/2019 12:01 PM SUPERVISOR OPEN HEARTH STOCKYARD Prostate cancer PSA Routine 12/14/2019 12:01 PM SUPERVISOR OPEN HEARTH STOCKYARD Prostate cancer COMPREHENSIVE METABOLIC PANEL Routine 12/14/2019 12:01 PM SUPERVISOR OPEN HEARTH STOCKYARD Prostate cancer documented in this encounter Results * (ABNORMAL) PSA (12/14/2019 12:01 PM SUPERVISOR OPEN HEARTH STOCKYARD) PSA 14.70(H) <4.00 ng/mL 12/14/2019 12:48 PM SUPERVISOR OPEN HEARTH STOCKYARD [facility] Blood Venipuncture / Unknown 12/14/2019 12:01 PM SUPERVISOR OPEN HEARTH STOCKYARD 12/14/2019 12:05 PM SUPERVISOR OPEN HEARTH STOCKYARD Narrative [facility] - 12/14/2019 12:48 PM SUPERVISOR OPEN HEARTH STOCKYARD The concentration of PSA in a given specimen, as determined by assays from different manufacturers, can vary because of differences in assay methods and reagent specificity. Values obtained with different assay methods cannot be used interchangeably. The testing method in use is the WILLIAM Electrochemiluminescence Immunoassay. Kailyn Blood MD CHEMISTRY ORDERABLES [facility] [id number] [facility] [address] [place] [address] * (ABNORMAL) COMPREHENSIVE METABOLIC PANEL (12/14/2019 12:01 PM SUPERVISOR OPEN HEARTH STOCKYARD) Pathologist [facility] SODIUM 143 136 - 145 mmol/L 12/14/2019 12:46 PM [facility] POTASSIUM 4.0 3.5 - 5.0 mmol/L 12/14/2019 12:46 PM SUPERVISOR OPEN HEARTH STOCKYARD [employer] [facility] - . [place] CHLORIDE 104 98 - 107 mmol/L 12/14/2019 12:46 PM [facility] [employer] LABORATORY [facility] - . [place] CO2 27 22 - 29 mmol/L 12/14/2019 12:46 PM [facility] [employer] LABORATORY SERVICES - . [facility] CALCIUM 9.1 8.6 - 10.2 mg/dL 12/14/2019 12:46 PM SUPERVISOR OPEN HEARTH STOCKYARD [employer] [facility]AT[facility] - . [place] BUN 11 8 - 23 mg/dL 12/14/2019 12:46 PM SUPERVISOR OPEN HEARTH STOCKYARD [employer]ORATORY SERVICES - . [facility] CREATININE 0.83 0.67 - 1.17 mg/dL 12/14/2019 12:46 PM SUPERVISOR OPEN HEARTH STOCKYARD [employer] - [facility] Comment:The GFR result is no t clinically significant on patients <18 or >70 years of age. GLUCOSE 100(H) 74 - 99 mg/dL 12/14/2019 12:46 PM [employer] LABORATORY [facility] - . [facility] TOTAL PROTEIN 7.2 6.7 - 8.6 g/dL 12/14/2019 12:46 PM SUPERVISOR OPEN HEARTH STOCKYARD [employer] - . [facility] ALBUMIN 4.7 3.5 - 5.2 g/dL 12/14/2019 12:46 PM [employer] [facility] - . [place] BILIRUBIN TOTAL 0.3 0.2 - 1.1 mg/dL 12/14/2019 12:46 PM [facility] [employer] LABORATORY SERVICES - . [facility] ALKALINE PHOSPHATASE 128 40 - 129 U/L 12/14/2019 12:46 PM [employer] [facility] - . [facility] AST 27 <41 U/L 12/14/2019 12:46 PM SUPERVISOR OPEN HEAR[employer] STOCKYARD [employer] [facility]ORAT[facility] SERVICES - . [facility] ALT 12 <42 U/L 12/14/2019 12:46 PM SUPERVISOR OPEN HEARTH STOCKYARD [employer] [facility]ORAT[facility] SERVICES - . [facility] GFR >60 mL/min/1.7 3 sq meter 12/14/2019 12:46 PM [employer] [facility] - . [facility] Comment: eGFR has not been [...] result. GFR, >60 mL/min/1.7 3 sq meter 12/14/2019 12:46 PM [facility] [employer] LABORATORY [facility] ANION GAP 12 8 - 16 mmol/L 12/14/2019 12:46 PM [facility] [employer] [facility] Blood Venipuncture / Unknown 12/14/2019 12:01 PM SUPERVISOR OPEN HEARTH STOCKYARD 12/14/2019 12:05 PM [facility] LABORATORY [facility] - [facility] - 12/14/2019 12:46 PM SUPERVISOR OPEN HEARTH STOCKYARD Samples containing indocyanine green cause interferences on Total and/or Direct Bilirubin and must not be measured. Kailyn Blood MD CHEMISTRY ORDERABLES [facility] [employer] [facility]# [id number] [address] [place] [address] * (ABNORMAL) CBC WITH DIFFERENTIAL (12/14/2019 12:01 PM SUPERVISOR OPEN HEARTH STOCKYARD) WBC 7.5 4.0 - 9.8 K/uL 12/14/2019 12:12 PM [facility] [employer] [facility] RBC 4.40(L) 4.50 - 5.40 M/uL 12/14/2019 12:12 PM [facility] [employer] LABORATORY [facility] HEMOGLOBIN 14.3 13.6 - 16.5 g/dL 12/14/2019 12:12 PM [facility] [employer] [facility] HEMATOCRIT 43.0 40.0 - 48.0 % 12/14/2019 12:12 PM [facility] [employer] [facility] MCV 97.7 82.0 - 99.0 fL 12/14/2019 12:12 PM [facility] [employer] [facility] MCH 32.5 27.2 - 32.6 pg 12/14/2019 12:12 PM [facility] [employer] [facility] MCHC 33.3 31.5 - 35.5 g/dL 12/14/2019 12:12 PM [facility] [employer] SERVICES [facility] RDW 12.6 11.5 - 14.5 % 12/14/2019 12:12 PM [facility] [employer] SERVICES - [facility] RDW-STDEV 45.2 37.1 - 48.7 fL 12/14/2019 12:12 PM [facility] [employer] [facility] PLATELETS 223 140 - 350 K/uL 12/14/2019 12:12 PM [facility] [employer] SERVICES [facility] MPV 10.5 9.3 - 12.4 fL 12/14/2019 12:12 PM [facility] [employer] [facility] NEUTROPHILS 55 % 12/14/2019 12:12 PM [facility] [employer] SERVICES [facility]. [place] LYMPHOCYTES 32 % 12/14/2019 12:12 PM [facility] [employer] SERVICES [facility]. [place] MONOCYTES 8 % 12/14/2019 12:12 PM [facility] [employer] [facility]. [place] EOSINOPHILS 4 % 12/14/2019 12:12 PM [facility] [employer] [facility] BASOPHILS 1 % 12/14/2019 12:12 PM SUPERVISOR [employer]OCKYARD [employer] [facility] IMMATURE GRANULOCYTES 0 % 12/14/2019 12:12 PM [facility] [employer] [facility] NEUTROPHIL ABSOLUTE 4.16 1.90 - 7.00 K/uL 12/14/2019 12:12 PM [facility] [employer] [facility]. [facility] LYMPHOCYTE ABSOLUTE 2.38 0.70 - 4.50 K/uL 12/14/2019 12:12 PM [facility] [employer] [facility]. [facility] MONOCYTE ABSOLUTE 0.62 0.10 - 1.30 K/uL 12/14/2019 12:12 PM [facility] [employer] [facility]. [facility] EOSINOPHIL ABSOLUTE 0.28 0.00 - 0.70 K/uL 12/14/2019 12:12 PM SUPERVISOR [employer]YARD [employer] [facility]. [facility] BASOPHILS ABSOLUTE 0.04 0.00 - 0.20 K/uL 12/14/2019 12:12 PM SUPERVISOR [employer]AR[employer]OCKYARD [employer] [facility]. [facility] IMMATURE GRANULOCYTES ABSOLUTE 0.03 0.00 - 0.03 K/uL 12/14/2019 12:12 PM [facility] [employer] [facility] Blood Venipuncture / Unknown 12/14/2019 12:01 PM SUPERVISOR OPEN [employer]AR[employer] STOCKYARD 12/14/2019 12:11 PM SUPERVISOR OPEN [employer] STOCKYARD Kailyn Blood MD HEMATOLOGY ORDERABLE S Performing Organization Address [facility] Co de Phone Number [facility]# [id number] [address] [place] [address] documented in this encounter Visit Diagnoses Diagnosis Prostate cancer Malignant neoplasm of prostate documented in this encounter Care Teams Hair Assistant Relationship Specialty Start Date End Date Ilan Whitley DO [address] [place] [address] PCP - General 09/07/09 07/31/20 documented as of this encounter
--- OUTSIDE RECORDS SUMMARY | 2024-10-30 02:33 | XMS_ITS | Encounter Summary ---
Author Organization [facility] Address [address] [place] [address] Care Team Providers Care Metal Can Inspector Name Role Phone Ilan Whitley DO Primary Care Provider Reason for Visit * Reason Comments Follow Up Navigation Encounter Details Date Type Department Care Team (Late Contact Info) Description 12/09/2019 Chart Note [facility] Oncology Patient Navigation [address] [place] [address] Nora Milligan, RN Follow Up (Navigation) Social [...] Progress Notes * Nora Goode RN - 12/09/2019 8:23 AM CST Patient called inquiring about his upcoming biopsy. Answered what I could. Encouraged patient to call with any additional questions or concerns going forward. Nora Goode RN, BSN Oncology Nurse Navigator UCTION PLANNER documented in this encounter Plan of Treatment Upcoming Encounters Date Type Department Care Team (Late st Contact Info) Description 12/13/2024 9:45 AM PRODUCTION PLANNER Office Visit [facility] Oncology and Hematology - [address] [id number] Glenn Al MD [address] [facility] [address] [place] [address] documented as of this encounter Visit Diagnoses Not on filedocumented in this encounter Care Teams Metal Can Inspector Relationship Specialty Start Date End Date Ilan Whitley DO [address] [place] [id number] PCP - General 09/07/09 07/31/20 documented as of this encounter
--- OUTSIDE RECORDS SUMMARY | 2024-10-30 02:33 | XMS_ITS | Encounter Summary ---
Author Organization [facility] Address [address] [place] [address] Care Team Providers Care Biometrics Specialist Name Role Phone Gutierrez Ilan Sousa Primary Care Provider Reason for Referral * CT Scan (Routine) - Closed Specialty Diagnoses / Procedures Referred By Cecile yan Referred To Contact CT Scan Diagnoses Prostate cancer Solitary lung nodule Procedures CT GUIDED BIOPSY Kailyn Blood MD [address] [place] [address] Referral ID Status Reason Start Date Expiration Date V isits Requested Visits Authorized [id number] Closed [facility] CTS 12/08/2019 01/06/2020 1 1 NE STRUCTURAL DESIGNER Reason for Visit * Auth/Cert Specialty Diagnoses / Procedures Referred By Cecile yan Referred To Contact General Surgery Diagnoses Prostate cancer Solitary lung nodule Procedures CT GUIDED BIOPSY [facility] [place] [id number] [place] [address] Referral ID Status Reason Start Date Expiration Date Visits Re quested Visits Authorized [id number] 1 1 Encounter Details Date Type Department Care Team (Latest Contact Info) Description 12/12/2019 7:33 AM MARINE STRUCTURAL DESIGNER - 12/12/2019 12:10 PM MARINE STRUCTURAL DESIGNER Hospital Encounter [facility] Amb Care Interventional [facility] [place] [address] [place] [address] Kailyn Blood MD [address] [place] [address] [facility] [address] Geri Huntley AA-C [address] [place] [address] Bipni Arellano MD [address] [place] [address] Prostate cancer Discharge Disposition: Home or Self Care Social [...] Sign Reading Time Taken Comments Blood Pressure 107/58 12/12/2019 11:57 AM MARINE STRUCTURAL DESIGNER Pulse 57 12/12/2019 11:57 AM MARINE STRUCTURAL DESIGNER Temperature 36.8 ??C (98.2 ??F) 12/12/2019 11:[address] Respiratory Rate 20 12/12/2019 11:10 AM MARINE STRUCTURAL DESIGNER Oxygen Saturation 98% 12/12/2019 11:57 AM MARINE STRUCTURAL DESIGNER Inhaled Oxygen Concentration - - Weight 67.1 kg (148 lb) 12/12/2019 7:59 AM MARINE STRUCTURAL DESIGNER Height 167.6 cm (5' 6 ) 12/12/2019 7:59 AM MARINE STRUCTURAL DESIGNER Body Mass Index 23.89 12/12/2019 7:59 AM MARINE STRUCTURAL DESIGNER documented in this encounter Discharge Instructions * Discharge Instructions* Susie Younger RN - 12/12/2019 10:46 AM MARINE STRUCTURAL DESIGNER SAFETY For the next 24 hours, you may feel sleepy due to medicines used during your procedure. For the next 24 hour period or while you are on pain medication, DO NOT make any important decisions or sign any important papers. DO NOT drink any alcoholic beverages, including beer. DO NOT drive a car or operate machinery and power tools. For your safety and protection, we strongly recommend that a responsible adult be with you today and throughout the night. Medication Pain Medication given at . Next dose due at , if needed. ADDITIONAL INFORMATION Once you are home, if you develop any of the following symptoms, call your physician. Difficulty in breathing, persistent nausea or vomiting, pain that is unusual, excessive swelling orredness at incision site, trouble swallowing, temperature greater than 101 degrees, excessive bleeding at incision site. If you cannot contact your physician, call or come to the Emergency [facility] at [facility] ([phone]) or the nearest Emergency Room. In an emergency, Call 911.[facility] Percutaneous Biopsy: What to Expect at Home Your Recovery Percutaneous biopsy is a procedure to take a tiny sample (biopsy) of your tissue. Percutaneous (say jfs-dvn-SWO-anahi-) means through the skin. The procedure is also called aspiration biopsy or fine-needle aspiration. The tissue sample is looked at under a microscope. Your doctor can look for infection or other problems. You may have some pain where the biopsy needle entered your skin (the puncture site). You may also have what is called referred pain. It is caused by pain traveling along a nerve near the biopsy site. The referred pain usually lasts less than 12 hours. You may have a small amount of bleeding from the puncture site. You will need to take it easy at home for 1 or 2 days after the procedure. You will probably be able to return to work and most of your usual activities after that. This care sheet gives you a general idea about how long it will take for you to recover. But each person recovers at a different pace. Follow the steps below to get better as quickly as possible. How can you care for yourself at home? Activity Rest when you feel tired. Getting enough sleep will help you recover. Try to walk each day. Start by walking a little more than you did the day before. Bit by bit, increase the amount you walk. Walking boosts blood flow and helps prevent pneumonia and constipation. Avoid exercises that use your belly muscles and strenuous activities, such as bicycle riding, jogging, weight lifting, or aerobic exercise, for 1 week or until your doctor says it is okay. Ask your doctor when you can drive again. You will probably need to take 1 or 2 days off from work. It depends on the type of work you do andhow you feel. You may shower 48 hours after the procedure, if your doctor says it is okay. Pat the puncture site dry. Do not take a bath for the first week, or until your doctor tells you it is okay. Diet You can eat your normal diet. If your stomach is upset, try bland, low-fat foods like plain rice, broiled chicken, toast, and yogurt. Drink plenty of fluids (unless your doctor tells you not to). Medicines This document includes your current and historical medications prescribed by your physician(s). Continue to take your current medicines and any new medications exactly as prescribed. Call your doctorwho prescribed the medication if you have any questions or if you think you are having a problem with your medicine. Take pain medicines exactly as directed. If the doctor gave you a prescription medicine for pain, take it as prescribed. If you are not taking a prescription pain medicine, take an aait-urm-doktexx medicine that your doctor recommends. Read and follow all instructions on the label. Do not take aspirin, ibuprofen (Advil, Motrin), naproxen (Aleve), or other nonsteroidal anti-inflammatory drugs (NSAIDs) unless your doctor says it is okay. Do not take two or more pain medicines at the same time unless the doctor told you to. Many pain medicines have acetaminophen, which is Tylenol. Too much acetaminophen (Tylenol) can be harmful. If you think your pain medicine is making you sick to your stomach: Take your medicine after meals (unless your doctor has told you not to). Ask your doctor for a different kind of pain medicine. Care of the puncture site Keep a bandage over the puncture site for the first 1 or 2 days. Follow-up care is a menezes part of your treatment and safety. Be sure to make and go to all appointments, and call your doctor if you are having problems. It???s also a good idea to know your test results and keep a list of the medicines you take. When should you call for help? Call 911 anytime you think you may need emergency care. For example, call if: You pass out (lose consciousness). You have severe trouble breathing. You have sudden chest pain and shortness of breath, or you cough up blood. You have severe pain in your chest, shoulder, or belly. Call your doctor now or seek immediate medical care if: You have new or worse shortness of breath. Bright red blood has soaked through the bandage over the puncture site. You have pain that does not get better after you take your pain medicine. You are sick to your stomach or cannot keep fluids down. You have a fever, chills, or body aches. You have signs of infection, such as: Increased pain, swelling, warmth, or redness. Red streaks leading from the incision. Pus draining from the incision. Swollen lymph nodes in your neck, armpits, or groin. A fever. You have new or worse pain at the puncture site. You have new or worse belly swelling or bloating. You have trouble passing urine or stool. Your stools are black and tarlike or have streaks of blood. You have pale-colored stools along with dark urine and itching. Watch closely for changes in your health, and be sure to contact your doctor if you have any problems. NE STRUCTURAL DESIGNER documented in this encounter Medications at Time of Discharge Medication Sig Dispensed Refills Start Date End Date amLODIPine (NORVASC) 5 mg tablet Take 2.5 mg by mouth daily. OMEGA-3 FATTY ACIDS (FISH OIL ORAL) Take by mouth daily. 020 documented as of this encounter Progress Notes * Susie Younger RN - 12/12/2019 12:11 PM CST D/C instructions given. VSS. Pt denies pain, Puncture site unchanged. D/c home in care of Family. NE STRUCTURAL DESIGNER * Susie Younger RN - 12/12/2019 11:18 AM CST Returned to room post procedure awake and alert, VSS, denies pain, SOB. L buttocks dressing dry, intact, no hematoma or bleeding noted, @ BS,started on diet, instructed to bedrest, states understanding. NE STRUCTURAL DESIGNER * Palak Paulino RN - 12/12/2019 11:11 AM CST Pt back to [facility]. Report given to JORGE ALBERTO Richards. NE STRUCTURAL DESIGNER * Palak Paulino RN - 12/12/2019 10:33 AM CST History, allergies, NPO status, and medications reviewed. Patient to CT2 by bed with side rails up.Performing physician discussed procedure and possible risks involved with pt/family/guardian, informed consent obtained. Patient onto CT table. Monitors applied. IV access established/verified for patency. Medications, airway, and vitals per anesthesia staff. NE STRUCTURAL DESIGNER * Palak Paulino RN - 12/12/2019 10:10 AM CST Introduced myself to patient explaining my role as the RN. Answered any questions the patient and/or family presented. NE STRUCTURAL DESIGNER documented in this encounter H&P Notes * Lesley Gates MD - 12/12/2019 10:55 AM CST INTERVENTIONAL RADIOLOGY HISTORY & PHYSICAL / PRE-PROCEDURE NOTE Chief Complaint/History of Present Illness Ilan Mccauley is a 79 y.o. male with left posterior iliac bone lesion. Past Medical History: Diagnosis Date ??? Allergic rhinitis ??? BPH (benign prostatic hyperplasia) ??? Calculus of kidney currently found through cat scan ??? Cancer ??? Erectile dysfunction ??? Family history of prostate cancer m gf ??? HTN (hypertension) 2009 ??? Hyperlipidemia diet controlled ??? Personal history of prostate cancer 06/13 s/p removal ??? Renal artery stenosis 06/12 mild on R Past Surgical History: Procedure Laterality Date ??? BIOPSY PROSTATE 06/13 cancer ??? CHG ANES COLONOSCOPY,BIOPSY 2006 polyps ??? CHG ANES COLONOSCOPY,BIOPSY 09/12 wnl, no polyps. tics ??? HOLTER MONITOR wnl ??? HX APPENDECTOMY age 14 ??? HI LAP,LYMPHATIC SYSTEM,OTHER PROC 07/20/2012 LYMPH NODE DISSECTION DAVINCI SI LAPAROSCOPIC performed by Giancarlo Azar MD at [facility] OR [facility] ??? HI LAP,PROSTATECTOMY,RADICAL,W/NERVE SPARE,INCL ROBOTIC 07/20/2012 PROSTATECTOMY RADICAL DAVINCI SI LAPAROSCOPIC performed by Giancarlo Azar MD at [facility] OR [facility] ??? STRESS ECHO W CONTRAST 06/12 wnl ??? US RENAL + DOPPLER 06/12 R renal art stenosis L ok Medications Prior to Admission Medication Sig Dispense Refill Last Dose ??? icosapent ethyl (Vascepa) 1 gram Capsule Take 1 Gram by mouth daily. 12/11/2019 at Unknown time ??? amLODIPine (NORVASC) 5 mg tablet Take 5 mg by mouth daily. 12/12/2019 at 0500 ??? OMEGA-3 FATTY ACIDS (FISH OIL ORAL) Take by mouth daily. Unknown at Unknown time ??? irbesartan (AVAPRO) 150 mg tablet Take 150 mg by mouth daily. 11/25/2015 at Unknown time Allergies Allergen Reactions ??? Codeine Nausea and Vomiting Makes patient extremely ill ??? Bystolic [Nebivolol] Bradycardia Social History Tobacco Use ??? Smoking status: Former Smoker Last attempt to quit: 11/02/1967 Years since quittin.1 ??? Smokeless tobacco: Never Used Substance Use Topics ??? Alcohol use: No Family History Problem Relation Name Age of Onset ??? Unknown Father ??? Hypertension Mother ??? Stroke Mother ??? Heart Disease Maternal Grandmother ??? Cancer Maternal Grandfather prostate Patient Vitals for the past 8 hrs: BP Temp Pulse Resp SpO2 Height Weight 12/12/19 0759 (!) 143/62 98.7 ??F (37.1 ??C) 72 16 97 % 5' 6 (1.676 m) 67.1 kg (148 lb) Lab Results Component Value Date/Time PLATELETS 428 (H) 11/28/2015 05:45 AM WBC 11.1 (H) 11/28/2015 05:45 AM HEMOGLOBIN 9.5 (L) 11/28/2015 05:45 AM AST 27 11/26/2015 08:20 AM ALT 25 11/26/2015 08:20 AM ALKALINE PHOSPHATASE 155 (H) 11/26/2015 08:20 AM BILIRUBIN TOTAL 0.2 11/26/2015 08:20 AM CREATININE 0.79 11/28/2015 05:45 AM Imaging I reviewed relevant available imaging studies. Patient Exam Alert and oriented. No acute distress. Non-labored respirations. Normal pulse rate. Assessment / Plan Ilan Mccauley is a 79 y.o. male with left posterior iliac bone lesion. We plan to do biopsy. The alternatives, benefits, and risks of the procedure were discussed in detail with the patient and informed consent was obtained according to protocol after the patient expressed the wish to proceed withthe procedure. No sedation will administered by the interventional radiology team. If neccessary, anesthesia department will take all sedation responsibilities for this procedure. NE STRUCTURAL DESIGNER documented in this encounter Plan of Treatment Upcoming Encounters Date Type Department Care Team (Late st Contact Info) Description 12/13/2024 9:45 AM MARINE STRUCTURAL DESIGNER Office Visit [facility] Oncology and Hematology - [place] [address] [place] [address] Glenn Al MD [address] [place] [address] documented as of this encounter Procedures Procedure Name Priority Date/Time Associated Diagnosis Comments CT GUIDED BIOPSY Routine 12/12/2019 11:0 2 AM MARINE STRUCTURAL DESIGNER Prostate cancer Solitary lung nodule PATHOLOGY Pathology 12/12/2019 10:56 AM MARINE STRUCTURAL DESIGNER documented in this encounter Results * CT GUIDED BIOPSY (12/12/2019 11:02 AM MARINE STRUCTURAL DESIGNER) Anatomical Region Laterality Modality Computed Tomogra phy, Other 12/12/2019 11:2 2 AM MARINE STRUCTURAL DESIGNER Impressions 12/12/2019 1:20 PM MARINE STRUCTURAL DESIGNER IMPRESSION: Successful left posterior iliac bone lesion biopsy. PLAN: Please follow up sampling results for final diagnosis. The examination was performed with the adjustment of mA according to the patient size and/or the use of Iterative Reconstruction Technique. Narrative 12/12/2019 1:20 PM MARINE STRUCTURAL DESIGNER PROCEDURE/EXAM(S): CT GUIDED LEFT POSTERIOR ILIAC BONE LESION BIOPSY TIME/DATE: 12/12/2019 11:02 AM. DICTATION LOCATION: Location [address] [place] [address] CLINICAL INFORMATION/INDICATION: Male of 79 years age presents with history of prostate cancer presents with indeterminate left posterior iliac bone lesion CONSENT: The indications, procedures, benefits, and risks (including but not limited to infection and bleeding) were discussed with the patient and informed consent was obtained per protocol. SEDATION: Provided by the anesthesia department as detailed in the medical record. TECHNIQUE: Patient identification and preprocedural timeout was performed per protocol. Maximum sterile technique was utilized for all aspects of the procedure. CT imaging of the pelvis was performed. The overlying subcutaneous tissues were infiltrated with local anesthetic and the left posterior iliac bone lesion was accessed with a 10 gauge biopsy device using CT guidance and a large bore core was obtained. At the end of the procedure, the devices were removed and a sterile dressing was applied. The patient tolerated the procedure well. MEDICATIONS/DRUGS: None. CT DOSE LENGTH PRODUCT: 775 mGy-cm. ?? ESTIMATED BLOOD LOSS: Less than 5 cc. ?? COMPLICATIONS: None. ?? FINDINGS: CT image(s) before biopsy show a safe biopsy path to the left posterior iliac bone lesion. CT image(s) during biopsy show a biopsy device well positioned at the targeted site. Procedure Note Lesley Gates MD - 12/12/2019 PROCEDURE/EXAM(S): CT GUIDED LEFT POSTERIOR ILIAC BONE LESION BIOPSY TIME/DATE: 12/12/2019 11:02 AM. DICTATION LOCATION: Location [address] [place] [address] CLINICAL INFORMATION/INDICATION: Male of 79 years age presents with history of prostate cancer presents with indeterminate left posterior iliac bone lesion CONSENT: The indications, procedures, benefits, and risks (including but not limited to infection and bleeding) were discussed with the patient and informed consent was obtained per protocol. SEDATION: Provided by the anesthesia department as detailed in the medical record. TECHNIQUE: Patient identification and preprocedural timeout was performed per protocol. Maximum sterile technique was utilized for all aspects of the procedure. CT imaging of the pelvis was performed. The overlying subcutaneous tissues were infiltrated with local anesthetic and the left posterior iliac bone lesion was accessed with a 10 gauge biopsy device using CT guidance and a large bore core was obtained. At the end of the procedure, the devices were removed and a sterile dressing was applied. The patient tolerated the procedure well. MEDICATIONS/DRUGS: None. CT DOSE LENGTH PRODUCT: 775 mGy-cm. ESTIMATED BLOOD LOSS: Less than 5 cc. COMPLICATIONS: None. FINDINGS: CT image(s) before biopsy show a safe biopsy path to the left posterior iliac bone lesion. CT image(s) during biopsy show a biopsy device well positioned at the targeted site. IMPRESSION: Successful left posterior iliac bone lesion biopsy. PLAN: Please follow up sampling results for final diagnosis. The examination was performed with the adjustment of mA according to the patient size and/or the use of Iterative Reconstruction Technique. Kailyn Blood MD CT ORDERABLES * PATHOLOGY (12/12/2019 10:56 AM MARINE STRUCTURAL DESIGNER) CASE REPORT Surgical Pathology Report ? Case: [id number] ? Authorizing Provider: ??Lesley Gates MD ?Collected: ? 12/12/2019 10:56 AM ? Ordering Location: ? [facility] Amb ? Received: ?12/12/2019 11:43 AM ? Care Interventional Unit ? North ? Pathologist: ? Jimi Villegas MD ? Specimen: ?Bone ? 12/14/2019 9:24 AM [facility] FINAL DIAGNOSIS Bone, left iliac lesion, biopsy: - Metastatic prostate adenocarcinoma. 12/14/2019 9:24 AM [facility] IMEN DESCRIPTION (A) left iliac bone lesion. 12/14/2019 9:24 AM [facility] OPERATIVE PROCEDURE left iliac bone lesion bx 12/14/2019 9:24 AM [facility] CLINICAL INFORMATION hx prostate cx, left iliac bone lesion 12/14/2019 9:24 AM [facility] GROSS DESCRIPTION Received in one container labeled Ilan Mccauley and left iliac bone lesion is a 1.5 x 0.3 cm cylindrical core of red-joseph bone. It is entirely submitted in cassette A1 following decalcification. [facility] 12/14/2019 9:24 AM [facility] MICROSCOPIC DESCRIPTION The slides are labeled [id number] and Ilan Mccauley. The left iliac bone lesion biopsy shows metastatic adenocarcinoma consisting of cribriform cytokeratin-expressin g glands infiltrating between bony trabeculae. The glands show cytoplasmic expression of Prostein and PSA. 12/14/2019 9:24 AM [facility] COMMENT Special stain and/or immunohistochemical results are interpreted with controls that demonstrate appropriate staining reactions. Note on use of immunocytochemistry reagents: This test was developed and its performance characteristics determined by [facility], Department of Laboratory Medicine. It has not been cleared or approved by the U.S. Food and Drug Administration. The FDA has determined that such clearance or approval is not necessary. The test is used for clinical purposes. It should not be regarded as investigational or for research. This laboratory is certified to perform high complexity testing. Cases may have been signed out in part or completely in the following laboratories: [facility], CLIA #[id number] [address] [place] [address] [facility] CLIA #[id number] [address] [place] [address] [facility]/[place], [place] #[id number] [address] [place] [address]. 12/14/2019 9:24 AM MARINE STRUCTURAL DESIGNER [facility] Tissue ENTIRE BONE ORGAN / Unknown 12/12/2019 10:56 AM MARINE STRUCTURAL DESIGNER 12/12/2019 11:43 AM MARINE STRUCTURAL DESIGNER Comment:Please CC:Connie land, Osbaldo Lovett Hsiao-Ou, MD Suchit Evelia Gates MD PATHOLOGY/CYTOLOGY O RDERABLES [facility] CLIA# [id number] [address] [place] [address] [place] [address] documented in this encounter Visit Diagnoses Diagnosis Prostate cancer Malignant neoplasm of prostate Solitary lung nodule Solitary pulmonary nodule documented in this encounter Administered Medications Inactive Administered Medications - up to 3 most recent administrations Medication Order MAR Action Action Date Dose Rate Site fentaNYL PF (SUBLIMAZE) 50 mcg/mL injection 25 mcg 25 mcg, IV, POST-PROCEDURE Q 3 MINUTES PRN, 5 doses, Starting on Thu12/12/19 at 1122, Until Thu12/12/19 at 1411, Pain, Routine, PACU lactated ringers infusion IV, at 125 mL/hr, POST-PROCEDURE CONTINUOUS, Starting on Thu12/12/19 at 1130, Until Thu12/12/19 at 1411, Routine, PACU ondansetron (ZOFRAN) 4 mg/2 mL injection 4 mg 4 mg, IV, POST-PROCEDURE ONCE PRN, 1 dose, Starting on Thu12/12/19 at 1122, Until 12/12/19 at 1411, Nausea/Emesis, Routine, PACU ondansetron (ZOFRAN) 4 mg/2 mL injection 4 mg 4 mg, IV, POST-PROCEDURE ONCE PRN, 1 dose, Starting on 12/12/19 at 1122, Until 12/12/19 at 1411, Nausea/Emesis, Routine, PACU documented in this encounter Active and Recently Administered Medications Times are shown in MARINE STRUCTURAL DESIGNER. Continuous Medication Order 12/10/2019 12/11/2019 12/12/2019 lactated ringers infusion IV, at 125 mL/hr, POST-PROCEDURE CONTINUOUS, Starting on Thu12/12/19 at 1130, Until Thu12/12/19 at 1411, Routine, PACU 1130 (Due) PRN Medication Order 12/10/2019 12/11/2019 12/12/2019 fentaNYL PF (SUBLIMAZE) 50 mcg/mL injection 25 mcg 25 mcg, IV, POST-PROCEDURE Q 3 MINUTES PRN, 5 doses, Starting on Thu12/12/19 at 1122, Until 12/12/19 at 1411, Pain, Routine, PACU ondansetron (ZOFRAN) 4 mg/2 mL injection 4 mg 4 mg, IV, POST-PROCEDURE ONCE PRN, 1 dose, Starting on Thu12/12/19 at 1122, Until 12/12/19 at 1411, Nausea/Emesis, Routine, PACU ondansetron (ZOFRAN) 4 mg/2 mL injection 4 mg 4 mg, IV, POST-PROCEDURE ONCE PRN, 1 dose, Starting on Thu12/12/19 at 1122, Until 12/12/19 at 1411, Nausea/Emesis, Routine, PACU documented in this encounter Care Teams Biometrics Specialist Relationship Specialty Start Date End Date Ilan Whitley DO [address] [place] [address] PCP - General 09/07/09 07/31/20 documented as of this encounter
--- OUTSIDE RECORDS SUMMARY | 2024-10-30 02:33 | XMS_ITS | Encounter Summary ---
Author Organization [facility] Address [address] [place] [address] Care Team Providers Care Supervisor Sewing Department Name Role Phone Ilan Whitley DO Primary Care Provider Reason for Visit * Reason Comments Medication Refill Encounter Details Date Type Department Care Team (Late Contact Info) Description 12/14/2019 Refill [facility] ONCOLOGY AND HEMATOLOGY - [place] [address] [facility] [address] [place] [address] Kailyn Blood MD [address] [facility] [address] [place] [address] Social History Tobacco Use Types Packs/Day [...] st Contact Info) Description 12/13/2024 9:45 AM TRUCK SHOP SUPERVISOR Office Visit [facility] Oncology and Hematology - [place] [address] [facility] [address] [place] [address] Glenn Al MD [address] [facility] [address] [place] [address] documented as of this encounter Visit Diagnoses Not on filedocumented in this encounter Care Teams Supervisor Sewing Department Relationship Specialty Start Date End Date Ilan Whitley DO [address] [facility] [address] [place] [phone] PCP - General 09/07/09 07/31/20 documented as of this encounter
--- OUTSIDE RECORDS SUMMARY | 2024-10-30 02:33 | XMS_ITS | Encounter Summary ---
Author Organization [facility] Address [address] [facility] Attn: Epic Prelude ADT ESTHER WILSON [address] Care Team Providers Care Automatic Quilling Machine Operator Name Role Phone Ilan Whitley DO Primary Care Provider Encounter Details Date Type Department Care Team (Latest Contact Info) Description 12/01/2019 Travel Social History Tobacco Use Types Packs/Day [...] st Contact Info) Description 12/13/2024 9:45 AM SHOE STOCK ASSOCIATE Office Visit [facility] Oncology and Hematology - [place] [address] [facility] 200 [place] [address] Glenn Al MD [address] [facility] [address] [place] [address] documented as of this encounter Visit Diagnoses Not on filedocumented in this encounter Care Teams Automatic Quilling Machine Operator Relationship Specialty Start Date End Date Ilan Whitley DO [address] [place] [phone] PCP - General 09/07/09 07/31/20 documented as of this encounter
--- OUTSIDE RECORDS SUMMARY | 2024-10-30 02:33 | XMS_ITS | Encounter Summary ---
Author Organization [facility] Address [address] [place] [address] Care Team Providers Care Systems Software Developer Name Role Phone GutierrezIlan DO Primary Care Provider Encounter Details Date Type Department Care Team (Late st Contact Info) Description 12/08/2019 Chart Note [facility] S [facility] [address] [place] [address] Troy Culver MD [address] [facility] [place] [address] Social History Tobacco Use Types Packs/Day [...] as of this encounter Progress Notes * Troy Culver MD - 12/08/2019 9:14 AM CST INTERVENTIONAL RADIOLOGY PRE PROCEDURE NOTE Procedure requested: RLL nodule bx Requesting physician: Jeremi Procedure approved: RLL nodule bx Approving physician(s): Neptali Approved via: Phone call to Jeremi. Discussed L iliac bx, but Jeremi is concerned about primary lung cancer. If lung is not possible/unsafe, can bx L iliac instead. Modality: CT Sedation: Local anesthetic Labs: None ACIU instruction: Expected 2 hour recovery Troy Gunderson D WELFARE SPECIALIST documented in this encounter Plan of Treatment Upcoming Encounters Date Type Department Care Team (Late st Contact Info) Description 12/13/2024 9:45 AM CHILD WELFARE SPECIALIST Office Visit [facility] Oncology and Hematology - [place] [address] [facility] [address] [place] [address] Glenn Al MD [address] [facility] [address] [place] [address] documented as of this encounter Visit Diagnoses Not on filedocumented in this encounter Care Teams Systems Software Developer Relationship Specialty Start Date End Date Ilan Whitley DO [address] [place] [address] PCP - General 09/07/09 07/31/20 documented as of this encounter
--- OUTSIDE RECORDS SUMMARY | 2024-10-30 02:33 | XMS_ITS | Encounter Summary ---
Author Organization [facility] Address [address] [place] [address] Care Team Providers Care Debt Management Counselor Name Role Phone TeofilorgaaronbrianashandaIlan DO Primary Care Provider Encounter Details Date Type Department Care Team (Late Contact Info) Description 06/04/2017 Orders Only [facility] Heart and Vascular At [address] [place] [address] Provider, Abstract NO ADDRESS ON [...] (Late Contact Info) Description 12/13/2024 9:45 AM PLATE EMBOSSER Office Visit [facility] Oncology and Hematology - [place] [address] [facility] [address] [place] [address] Glenn Al MD [address] [facility] [address] [place] [address] documented as of this encounter Procedures Procedure Name Priority Date/Time Associated Diagnosis Comments LIPID PANEL Routine 05/27/2017 documented in this encounter Results * (ABNORMAL) LIPID PANEL (05/27/2017) Blood Abstract Provider CHEMISTRY ORDERABLES EXTERNAL LAB documented in this encounter Visit Diagnoses Not on filedocumented in this encounter Care Teams Debt Management Counselor Relationship Specialty Start Date End Date Ilan Whitley DO [address] [place] [phone] PCP - General 09/07/09 07/31/20 documented as of this encounter
--- OUTSIDE RECORDS SUMMARY | 2024-10-30 02:33 | XMS_ITS | Encounter Summary ---
Author Organization [facility] Address [address] [place] [address] Care Team Providers Care Measuring Machine Operator Name Role Phone TeofilorgaaronIlan bennett DO Primary Care Provider Reason for Visit * Reason Onset Date Comments Chest Pain 06/01/2017 Encounter Details Date Type Department Care Team (Late st Contact Info) Description 06/01/2017 Telephone [facility] Heart and Vascular At [place] [address] [address] [facility] [address] [place] [address] Eleazar Mishra MD [facility] S [facility] [address] [place] [address] Chest Pain Social History Tobacco Use Types [...] encounter Miscellaneous Notes * Telephone Encounter - Maru Henry - 06/01/2017 4:38 PM CDT Called and spoke to pt, scheduled on Thu at 12:[address] Mishra. * Telephone Encounter - Monica Mejia - 06/01/2017 4:11 PM CDT Spoke with patient, states having chest pressure with exertion, states that it is becoming more frequent. Just saw Dr. Whitley and is being referred to Dr. Mishra. States had stress test and echo at [facility] several months ago, he will ask Dr. Whitley's office to send copies. Pt understands to go to ED if chest pressure occurs at rest and doesn't resolve quickly. Will ask Bronwyn to call patient and make OV. documented in this encounter Plan of Treatment Upcoming Encounters Date Type Department Care Team (Late st Contact Info) Description 12/13/2024 9:45 AM TIN TIE MACHINE OPERATOR AUTOMATIC Office Visit [facility] Oncology and Hematology - [place] [address] [facility] [address] [place] [address] Glenn Al MD [address] [facility] [address] [place] [address] documented as of this encounter Visit Diagnoses Not on filedocumented in this encounter Care Teams Measuring Machine Operator Relationship Specialty Start Date End Date Ilan Whitley DO [address] [place] [address] PCP - General 09/07/09 07/31/20 documented as of this encounter
--- OUTSIDE RECORDS SUMMARY | 2024-10-30 02:33 | XMS_ITS | Encounter Summary ---
Author Organization [facility] Address [address] [place] [address] Care Team Providers Care Assistant Manager Airside Operations Name Role Phone Gutierrez Ilan Sousa Primary Care Provider Reason for Referral * Eval and Treat (5-7 Days) - Closed Specialty Diagnoses / Procedures Referred By Cecile t Referred To Contact Diagnoses Prostate cancer Kailyn Blood MD [address] [facility] [address] [place] [address] Referral ID Status Reason Start Date Expiration Date V isits Requested Visits Authorized [id number] Closed CRS To Schedule (STL) 12/14/2019 12/13/2020 1 1 LACE TIPPING MACHINE OPERATOR Reason for Visit * Reason Comments Follow Up follow up w/labs and distress screening 7 Encounter Details Date Type Department Care Team (Late st Contact Info) Description 12/14/2019 11:30 AM SHOELACE TIPPING MACHINE OPERATOR Office Visit [facility] ONCOLOGY AND HEMATOLOGY - [place] [address] [facility] [address] [place] [phone] Kailyn Blood MD [address] [facility] [address] [place] [address] Prostate cancer (Primary Dx) Social History [...] Sign Reading Time Taken Comments Blood Pressure 148/66 12/14/2019 11:28 AM SHOELACE TIPPING MACHINE OPERATOR Pulse 59 12/14/2019 11:28 AM SHOELACE TIPPING MACHINE OPERATOR Temperature 36.5 ??C (97.7 ??F) 12/14/2019 11:[address] Respiratory Rate - - Oxygen Saturation 97% 12/14/2019 11:28 AM SHOELACE TIPPING MACHINE OPERATOR Inhaled Oxygen Concentration - - Weight 68 kg (149 lb 14.4 oz) 12/14/2019 11:28 A M SHOELACE TIPPING MACHINE OPERATOR Height 172.7 cm (5' 8 ) 12/14/2019 11:28 AM SHOELACE TIPPING MACHINE OPERATOR Body Mass Index 22.79 12/14/2019 11:28 AM SHOELACE TIPPING MACHINE OPERATOR documented in this encounter Progress Notes * Kailyn Blood MD - 12/14/2019 3:30 PM CST Hematology Oncology Follow up DIAGNOSIS Metastatic prostate cancer, [place] score 8, with right acetabulum met in [...] obvious focal deficit LABS WBC 7.5 Hgb 14.3 plt 223 PSA 14.7 ASSESSMENT/PLAN 1. Prostate cancer. Biopsy of right acetabulum mass showed metastatic prostate cancer. Will start him on Casodex followed Lupron injection next week. 2. RLL nodule. Unable to biopsy b/o the location. Can't r/o lung cancer. Will repeat CT in 3 monthsfor further evaluation after Lupron. Patient will follow-up with me in 1 week. René Blood MD [facility] Oncology and Hematology [facility] LACE TIPPING MACHINE OPERATOR documented in this encounter Plan of Treatment Upcoming Encounters Date Type Department Care Team (Late st Contact Info) Description 12/13/2024 9:45 AM SHOELACE TIPPING MACHINE OPERATOR Office Visit [facility] Oncology and Hematology [facility] [address] [facility] 200 [place] [address] Glenn Al MD [address] [facility] [address] [place] [address] Scheduled Referrals Name Type Priority Associated Diagnoses Orde r Schedule AMB REFERRAL TO REHAB ONCOLOGY Outpatient Referral Routine Prostate cancer Ordered: 12/14/2019 documented as of this encounter Visit Diagnoses Diagnosis Prostate cancer- Primary Malignant neoplasm of prostate documented in this encounter Care Teams Assistant Manager Airside Operations Relationship Specialty Start Date End Date Ilan Whitley DO [address] [place] [phone] PCP - General 09/07/09 07/31/20 documented as of this encounter
--- OUTSIDE RECORDS SUMMARY | 2024-10-30 02:33 | XMS_ITS | Encounter Summary ---
Author Organization [facility] Address [address] [place] [address] Care Team Providers Care Real Estate Rep Name Role Phone Ilan Whitley DO Primary Care Provider Reason for Visit * Reason Onset Date Comments Medication Refill Medication Refill 12/27/2019 Encounter Details Date Type Department Care Team (Late st Contact Info) Description 12/15/2019 Refill [facility] ONCOLOGY AND HEMATOLOGY - [place] [address] [facility] [address] [place] [address] Kailyn Blood MD [address] [facility] [address] [place] [address] Social History Tobacco Use Types Packs/Day [...] (Late Contact Info) Description 12/13/2024 9:45 AM CARROTER Office Visit [facility] Oncology and Hematology - [place] [address] [facility] 200 [place] [address] Glenn Al MD [address] [facility] [address] [place] [address] documented as of this encounter Visit Diagnoses Not on filedocumented in this encounter Care Teams Real Estate Rep Relationship Specialty Start Date End Date Ilan Whitley DO [address] [place] [phone] PCP - General 09/07/09 07/31/20 documented as of this encounter
--- OUTSIDE RECORDS SUMMARY | 2024-10-30 02:33 | XMS_ITS | Encounter Summary ---
Author Organization [facility] Address [address] [place] [address] Care Team Providers Care Plaque Maker Name Role Phone Ilan Whitley Merry Primary Care Provider Reason for Referral * Outpatient Services (Routine) - Closed Specialty Diagnoses / Procedures Referred By Cecile yan Referred To Contact Diagnoses Bruit of left carotid artery Procedures US CAROTID DOPPLER Parag Lam MD [address] [address] Referral ID Status Reason Start Date Expiration Date V isits Requested Visits Authorized [id number] Closed [facility] CTS 09/14/2017 10/14/2017 1 1 LEATHER TRIMMER Reason for Visit * Outpatient Services (Routine) - Closed Specialty Diagnoses / Procedures Referred By Cecile yan Referred To Contact Diagnoses Bruit of left carotid artery Procedures US CAROTID DOPPLER Parag Lam MD [address] [address] Referral ID Status Reason Start Date Expiration Date V isits Requested Visits Authorized [id number] Closed [facility] CTS 09/14/2017 10/14/2017 1 1 Encounter Details Date Type Department Care Team (Latest Contact Info) Description 09/23/2017 8:04 AM HAND LEATHER TRIMMER - 09/23/2017 11:59 PM HAND LEATHER TRIMMER Hospital Encounter [facility] Blood Flow [address] [place] [address] Parag Lam MD [address] [address] Discharge Disposition: Home or Self Care Social [...] Sig Dispensed Refills Start Date End Date OMEGA-3 FATTY ACIDS (FISH OIL ORAL) Take by mouth daily. 020 documented as of this encounter Plan of Treatment Upcoming Encounters Date Type Department Care Team (Late st Contact Info) Description 12/13/2024 9:45 AM HAND LEATHER TRIMMER Office Visit [facility] Oncology and Hematology - [place] [address] [place] [address] [facility] 200 [place] [address] Glenn Al MD 2[address] [facility] 100 [place] [address] documented as of this encounter Procedures Procedure Name Priority Date/Time Associated Diagnosis Comments US CAROTID DOPPLER Routine 09/23/2017 8: 43 AM HAND LEATHER TRIMMER Bruit of left carotid artery documented in this encounter Results * US CAROTID DOPPLER (09/23/2017 8:43 AM HAND LEATHER TRIMMER) Anatomical Region Laterality Modality Neck Ultrasound 09/23/2017 8:21 AM HAND LEATHER TRIMMER Narrative 09/23/2017 4:25 PM HAND LEATHER TRIMMER [address] [address] [email or web address] Cerebrovascular Exam Carotid Duplex Patient: ?Ilan Mccauley MRN: ?[id number] Study ID: ? [id number] Gender: ? M : ?1940 Age: ?77 Race: ? CAU Height ?167.6cm Study Date: ? 09/23/2017 Weight: ? 72.6kg Access. #: ?[id number] Account #: ?[id number] *Referring Physician:* Parag Lam [[id number]] *Ordering Physician:* ??Parag Lam [[id number]] *Retail Advertising Executive:* History: ??A bruitof the left carotid artery. ??PMH: ??No prior study is available for comparison. ??Risk factors: ??Former smoker - years since quittinyr. Packs per day/years: 1.5/5. Study data: ?? Study status: ??Routine. ?Carotid duplex study. ? Complete study and Doppler flow study including spectral analysis, color and pretty scale imaging. ??Birthdate: Patient birthdate: 1940. ??Age: ??Patient is 77yr old. Sex: ??Gender: male. ??Height: ??Height: 167.6cm. Height: 66in. Weight: ??Weight: 72.6kg. Weight: 159.7lb. ??Body mass index: BMI: 25.8kg/m^2. ??Body surface area: ?BSA: 1.85m^2. Study date: ??Study date: 09/23/2017. Study time: 08:21 AM. Location: ??Vascular laboratory. ??Patient status: Outpatient. Impressions - Right internal carotid: Lesion: There is a mild, 0-49% ??stenosis. - Left internal carotid: Lesion: There is a mild, 0-49% ??stenosis. 1. The bilateral common and external carotid arteries reveal ?? no significant stenosis. 2. The bilateral vertebral arteries are patent with normal ?? antegrade flow. Findings: Right internal carotid: Lesion: There is a mild, 0-49% stenosis. This lesion appears heterogeneous and hard. Left internal carotid: Lesion: There is a mild, 0-49% stenosis. This lesion appears heterogeneous and hard. Tables: Brachial pressures: - R(sys): 106mm Hg L(sys): 110mm Hg Max: 110mm Hg R(d): 60mm ??Hg L(d): 60mm Hg 75 77 Arterial flow: - Right CCA - proximal - 79.7cm/s 13.5cm/s - Right CCA - distal - 70.9cm/s 14.1cm/s - Right ECA - -93.2cm/s - Right ICA - proximal - 68.6cm/s 16.4cm/s - Right ICA - distal - 79.7cm/s 28.1cm/s - Right vertebral - 61.6cm/s 17.6cm/s - Left CCA - proximal - 140cm/s 18.7cm/s - Left CCA - distal - 67.4cm/s 14.1cm/s - Left ECA - 78.6cm/s - Left ICA - proximal - 55.4cm/s 19.6cm/s - Left ICA - distal - 87.9cm/s 21.7cm/s - Left vertebral - 33.6cm/s 12.6cm/s Velocity ratios: - 1.1 - 1.3 Prepared and Electronically Authenticated Jero Bach [id number] Procedure Note Jero Bach MD - 09/23/[address] [place] [address] [email or web address] Cerebrovascular Exam Carotid Duplex Patient: Ilan Mccauley Study ID: [id number] Gender: M : 1940 Age: 77 Race: CAU Height 167.6cm Study Date: 09/23/2017 Weight: 72.6kg Access. #: [id number] *Referring Physician:* Parag Lam [[id number]] *Ordering Physician:* Parag Lam [[id number]] *Retail Advertising Executive:* History: A bruitof the left carotid artery. PMH: No prior study is available for comparison. Risk factors: Former smoker - years since quittinyr. Packs per day/years: 1.5/5. Study data: Study status: Routine. Carotid duplex study. Complete study and Doppler flow study including spectral analysis, color and pretty scale imaging. Birthdate: Patient birthdate: 1940. Age: Patient is 77yr old. Sex: Gender: male. Height: Height: 167.6cm. Height: 66in. Weight: Weight: 72.6kg. Weight: 159.7lb. Body mass index: BMI: 25.8kg/m^2. Body surface area: BSA: 1.85m^2. Study date: Study date: 09/23/2017. Study time: 08:21 AM. Location: Vascular laboratory. Patient status: Outpatient. Impressions - Right internal carotid: Lesion: There is a mild, 0-49% stenosis. - Left internal carotid: Lesion: There is a mild, 0-49% stenosis. 1. The bilateral common and external carotid arteries reveal no significant stenosis. 2. The bilateral vertebral arteries are patent with normal antegrade flow. Findings: Right internal carotid: Lesion: There is a mild, 0-49% stenosis. This lesion appears heterogeneous and hard. Left internal carotid: Lesion: There is a mild, 0-49% stenosis. This lesion appears heterogeneous and hard. Tables: Brachial pressures: - R(sys): 106mm Hg L(sys): 110mm Hg Max: 110mm Hg R(d): 60mm Hg L(d): 60mm Hg 75 77 Arterial flow: - Right CCA - proximal - 79.7cm/s 13.5cm/s - Right CCA - distal - 70.9cm/s 14.1cm/s - Right ECA - -93.2cm/s - Right ICA - proximal - 68.6cm/s 16.4cm/s - Right ICA - distal - 79.7cm/s 28.1cm/s - Right vertebral - 61.6cm/s 17.6cm/s - Left CCA - proximal - 140cm/s 18.7cm/s - Left CCA - distal - 67.4cm/s 14.1cm/s - Left ECA - 78.6cm/s - Left ICA - proximal - 55.4cm/s 19.6cm/s - Left ICA - distal - 87.9cm/s 21.7cm/s - Left vertebral - 33.6cm/s 12.6cm/s Velocity ratios: - 1.1 - 1.3 Prepared and Electronically Authenticated Jero Bach [id number] Parag Lam MD ORDERABLES documented in this encounter Visit Diagnoses Diagnosis Bruit of left carotid artery Other symptoms involving cardiovascular system documented in this encounter Care Teams Plaque Maker Relationship Specialty Start Date End Date Ilan Whitley DO [address] [place] [phone] PCP - General 09/07/09 07/31/20 documented as of this encounter
--- OUTSIDE RECORDS SUMMARY | 2024-10-30 02:33 | XMS_ITS | Encounter Summary ---
Author Organization [facility] Address [address] [place] [address] Care Team Providers Care Web Administrator Name Role Phone Ilan Whitley DO Primary Care Provider Reason for Visit * Reason Comments Follow Up Nurse Navigation Encounter Details Date Type Department Care Team (Late st Contact Info) Description 12/09/2019 Chart Note [facility] Oncology Patient Navigation [address] [place] [address] Nora Milligan, RN Follow Up (Nurse Navigation) [...] Progress Notes * Nora Goode, RN - 12/09/2019 2:37 PM CST Patient called asking about his up coming biopsy. He was very concerned because IR called and told him they are changing his biopsy to a bone biopsy. He states no one told him why or nor did he speakwith the physicians on this. Apologized for any miscommunication. And read the patent the last note that was placed by IR explaining that if the lung biopsy is not possible or unsafe that they would like orders for the L iliac instead. Explained that this would hopefully allow them to also get the answers they need.Patient appreciated the explanation and denied any further questions. Nora Goode, RN, BSN Oncology Nurse Navigator [facility] [facility] JUSTICE documented in this encounter Plan of Treatment Upcoming Encounters Date Type Department Care Team (Late st Contact Info) Description 12/13/2024 9:[address] JUSTICE Office Visit [facility] Oncology and Hematology [facility] [address] [facility] [address] [place] [address] Glenn Al MD [address] [facility] [address] [place] [address] documented as of this encounter Visit Diagnoses Not on filedocumented in this encounter Care Teams Web Administrator Relationship Specialty Start Date End Date Ilan Whitley DO [address] [place] [phone] PCP - General 09/07/09 07/31/20 documented as of this encounter
--- OUTSIDE RECORDS SUMMARY | 2024-10-30 02:33 | XMS_ITS | Encounter Summary ---
Author Organization [facility] Address [address] [place] [address] Care Team Providers Care Enamel Dipper Name Role Phone Ilan Whitley DO Primary Care Provider Reason for Visit * Reason Onset Date Comments Erroneous encounter-disregard 11/23/2019 Encounter Details Date Type Department Care Team (Late Contact Info) Description 11/23/[address] [facility] UROLOGY - [place] [address] [facility] [address] [place] [address] Pato Thomson MD [address] [facility] [address] [place] [address] Erroneous encounter-disregard Social History Tobacco Use Types [...] (Late Contact Info) Description 12/13/2024 9:45 AM MEDIA PLANNER / BUYER Office Visit [facility] Oncology and Hematology - [place] [address] [place] [address] Glenn Al MD [address] [facility] [address] [place] [address] documented as of this encounter Visit Diagnoses Not on filedocumented in this encounter Care Teams Enamel Dipper Relationship Specialty Start Date End Date Ilan Whitley DO [address] [place] [phone] PCP - General 09/07/09 07/31/20 documented as of this encounter
--- OUTSIDE RECORDS SUMMARY | 2024-10-30 02:33 | XMS_ITS | Encounter Summary ---
Author Organization [employer] [facility] Address [address] [place] [address] Care Team Providers Care Tumbling And Rolling Supervisor Name Role Phone Gutierrez Ilan Sousa Primary Care Provider Reason for Visit * Tx/Med Therapy Plan Auth (Routine) - Closed Specialty Diagnoses / Procedures Referred By Cecile t Referred To Contact Diagnoses Prostate cancer Cancer, metastatic to bone Procedures CA LEUPROLIDE ACETATE SUSPNSION CA DENOSUMAB INJECTION Kailyn Edmond MD [address] [facility] [place] [address] [facility] 3rd Floor [place] [address] [facility] [place] [address] Referral ID Status Reason Start Date Expiration Date Visits Re quested Visits Authorized [id number] Closed 12/12/2020 11/01/2021 99 99 Encounter Details Date Type Department Care Team (Latest Contact Info) Description 12/21/2019 11:24 AM [employer] - 12/21/2019 11:59 PM [facility] Hospital Encounter [facility] 3rd Fl [address] [facility] [place] [address] Kailyn Blood MD [address] [facility] [place] [address] Injection Pod 1, Polk Discharge [...] Progress Notes * Eve Prescott RN - 12/21/2019 12:00 PM CST Pt admitted to infusion center for Lupron injection. Pt/family demonstrates understanding of medication and possible side effects. Tolerated injection without problem. Instructed pt to notify physician or go to ED if there are any changes in their condition. Verbalized understanding. Discharged home. [employer] documented in this encounter Plan of Treatment Upcoming Encounters Date Type Department Care Team (Late st Contact Info) Description 12/13/2024 9:45 AM [employer] Office Visit [facility] Oncology and Hematology [facility] [address] [place] [address] [facility] [address] [place] [address] Glenn Al MD [address] [facility] [address] [place] [address] documented as of this encounter Visit Diagnoses Diagnosis Prostate cancer- Primary Malignant neoplasm of prostate documented in this encounter Administered Medications Inactive Administered Medications - up to 3 most recent administrations Medication Order MAR Action Action Date Dose Rate Site leuprolide acetate (ELIGARD) 3 month subcut syringe 22.5 mg 22.5 mg, subCUT, ONE TIME ONLY, 1 dose, On Thu12/21/19 at 1130, Routine Given 12/21/2019 11:30 AM [employer] 22.5 mg Abdomen, Left Upper Quadrant documented in this encounter Care Teams Tumbling And Rolling Supervisor Relationship Specialty Start Date End Date Ilan Whitley DO [address] [place] [address] PCP - General 09/07/09 07/31/20 documented as of this encounter
--- OUTSIDE RECORDS SUMMARY | 2024-10-30 02:33 | XMS_ITS | Encounter Summary ---
Author Organization [facility] Address [address] [place] [address] Care Team Providers Care Tub Wash Operator Name Role Phone GutierrezIlan Primary Care Provider Encounter Details Date Type Department Care Team (Latest Contact Info) Description 12/21/2019 10:21 AM RN GASTROENTEROLOGY - 12/21/2019 11:59 PM [facility] Hospital Encounter [facility] Laboratory Services [facility] [address] [place] [address] Kailyn Blood MD [address] [facility] [address] [place] [address] Discharge Disposition: Home or Self [...] st Contact Info) Description 12/13/2024 9:45 AM RN GASTROENTEROLOGY Office Visit [facility] Oncology and Hematology - [place] [address] [facility] [address] [place] [address] Gelnn Al MD [address] [facility] [address] [place] [address] documented as of this encounter Procedures Procedure Name Priority Date/Time Associated Diagnosis Comments CBC WITH DIFFERENTIAL Routine 12/21/2019 10:30 AM RN GASTROENTEROLOGY Prostate cancer PSA Routine 12/21/2019 10:30 AM RN GASTROENTEROLOGY Prostate cancer COMPREHENSIVE METABOLIC PANEL Routine 12/21/2019 10:30 AM RN GASTROENTEROLOGY Prostate cancer documented in this encounter Results * (ABNORMAL) PSA (12/21/2019 10:30 AM RN GASTROENTEROLOGY) PSA 8.1(H) <4.0 ng/mL 12/21/2019 4:18 PM RN GASTROENTEROLOGY [facility] Blood Venipuncture / Unknown 12/21/2019 10:30 AM RN GASTROENTEROLOGY 12/21/2019 10:36 AM RN GASTROENTEROLOGY Narrative [facility] - 12/21/2019 4:18 PM RN GASTROENTEROLOGY The concentration of PSA in a given specimen, as determined by assays from different manufacturers, can vary because of differences in assay methods and reagent specificity. Values obtained with different assay methods cannot be used interchangeably. The testing method in use is the WILLIAM Electrochemiluminescence Immunoassay. Kailyn Blood MD CHEMISTRY ORDERABLES [facility] [id number] [facility] [address] [place] [address] * COMPREHENSIVE METABOLIC PANEL (12/21/2019 10:30 AM RN GASTROENTEROLOGY) SODIUM 139 136 - 145 mmol/L 12/21/2019 11:22 AM RN GASTROENTEROLOGY [facility] POTASSIUM 4.1 3.5 - 5.0 mmol/L 12/21/2019 11:22 AM RN GASTROENTEROLOGY [facility] CHLORIDE 101 98 - 107 mmol/L 12/21/2019 11:22 AM RN GASTROENTEROLOGY [facility] CO2 27 22 - 29 mmol/L 12/21/2019 11:22 AM RN GASTROENTEROLOGY [facility] CALCIUM 9.0 8.6 - 10.2 mg/dL 12/21/2019 11:22 AM [employer] [facility] BUN 18 8 - 23 mg/dL 12/21/2019 11:22 AM RN GASTROENTEROLOGY [facility] CREATININE 0.87 0.67 - 1.17 mg/dL 12/21/2019 11:22 AM [employer] [facility] Comment:The GFR result is no t clinically significant on patients <18 or >70 years of age. GLUCOSE 93 74 - 99 mg/dL 12/21/2019 11:22 AM [employer] [facility] TOTAL PROTEIN 7.5 6.7 - 8.6 g/dL 12/21/2019 11:22 AM [employer] [facility] ALBUMIN 4.8 3.5 - 5.2 g/dL 12/21/2019 11:22 AM [employer] [facility] BILIRUBIN TOTAL 0.6 0.2 - 1.1 mg/dL 12/21/2019 11:22 AM [employer] [facility] - . [facility] ALKALINE PHOSPHATASE 129 40 - 129 U/L 12/21/2019 11:22 AM [employer] [facility] AST 19 <41 U/L 12/21/2019 11:22 AM [employer] [facility] - . [facility] ALT 12 <42 U/L 12/21/2019 11:22 AM [employer] [facility] - . [facility] GFR >60 mL/min/1.7 3 sq meter 12/21/2019 11:22 AM [employer] [facility] - . [facility] Comment: eGFR has not been validated [...] result. GFR, >60 mL/min/1.7 3 sq meter 12/21/2019 11:22 AM [facility] [employer] [facility] ANION GAP 11 8 - 16 mmol/L 12/21/2019 11:22 AM [facility] [employer] [facility] Blood Venipuncture / Unknown 12/21/2019 10:30 AM RN GASTROENTEROLOGY 12/21/2019 10:36 AM [facility] [employer] [facility] - [facility] - 12/21/2019 11:22 AM RN GASTROENTEROLOGY Samples containing indocyanine green cause interferences on Total and/or Direct Bilirubin and must not be measured. Kailyn Blood MD CHEMISTRY ORDERABLES [facility] [employer] [facility]# [id number] [address] [place] [address] * (ABNORMAL) CBC WITH DIFFERENTIAL (12/21/2019 10:30 AM RN GASTROENTEROLOGY) WBC 7.4 4.0 - 9.8 K/uL 12/21/2019 10:36 AM [facility] [employer] [facility] RBC 4.34(L) 4.50 - 5.40 M/uL 12/21/2019 10:36 AM [facility] [employer] [facility] HEMOGLOBIN 14.3 13.6 - 16.5 g/dL 12/21/2019 10:36 AM [facility] [employer] [facility] HEMATOCRIT 42.1 40.0 - 48.0 % 12/21/2019 10:36 AM [facility] [employer] [facility] MCV 97.0 82.0 - 99.0 fL 12/21/2019 10:36 AM [facility] [employer] [facility] MCH 32.9(H) 27.2 - 32.6 pg 12/21/2019 10:36 AM [facility] [employer] [facility] MCHC 34.0 31.5 - 35.5 g/dL 12/21/2019 10:36 AM RN GASTROENTEROLOGY [facility] RDW 12.5 11.5 - 14.5 % 12/21/2019 10:36 AM [facility] RDW-STDEV 45.1 37.1 - 48.7 fL 12/21/2019 10:36 AM [facility] PLATELETS 227 140 - 350 K/uL 12/21/2019 10:36 AM [facility] MPV 10.2 9.3 - 12.4 fL 12/21/2019 10:36 AM [facility] NEUTROPHILS 48 % 12/21/2019 10:36 AM [facility] LYMPHOCYTES 37 % 12/21/2019 10:36 AM [facility] MONOCYTES 9 % 12/21/2019 10:36 AM [facility] EOSINOPHILS 5 % 12/21/2019 10:36 AM [facility] BASOPHILS 1 % 12/21/2019 10:36 AM [facility] IMMATURE GRANULOCYTES 0 % 12/21/2019 10:36 AM [facility] NEUTROPHIL ABSOLUTE 3.59 1.90 - 7.00 K/uL 12/21/2019 10:36 AM [facility] LYMPHOCYTE ABSOLUTE 2.76 0.70 - 4.50 K/uL 12/21/2019 10:36 AM [facility] MONOCYTE ABSOLUTE 0.67 0.10 - 1.30 K/uL 12/21/2019 10:36 AM [facility] EOSINOPHIL ABSOLUTE 0.35 0.00 - 0.70 K/uL 12/21/2019 10:36 AM [facility] BASOPHILS ABSOLUTE 0.04 0.00 - 0.20 K/uL 12/21/2019 10:36 AM [facility] IMMATURE GRANULOCYTES ABSOLUTE 0.02 0.00 - 0.03 K/uL 12/21/2019 10:36 AM [facility] Blood Venipuncture / Unknown 12/21/2019 10:30 AM RN GASTROENTEROLOGY 12/21/2019 10:33 AM RN GASTROENTEROLOGY Rizwana-Ou Hu MD HEMATOLOGY ORDERABLE S Performing Organization Address [facility] Co de Phone Number [facility]# [id number] [address] [place] [address] documented in this encounter Visit Diagnoses Diagnosis Prostate cancer Malignant neoplasm of prostate documented in this encounter Care Teams Tub Wash Operator Relationship Specialty Start Date End Date Ilan Whitley DO [address] [place] [address] PCP - General 09/07/09 07/31/20 documented as of this encounter
--- OUTSIDE RECORDS SUMMARY | 2024-10-30 02:33 | XMS_ITS | Encounter Summary ---
Author Organization [facility] Address [address] [place] [address] Care Team Providers Care News Operations Manager Name Role Phone Gutierrez Ilan Sousa Primary Care Provider Reason for Referral * PET Scan (Routine) - Closed Specialty Diagnoses / Procedures Referred By Cecile yan Referred To Contact Radiology Diagnoses Prostate cancer Solitary lung nodule Procedures PET TUMOR IMG W CT SKL BSE [facility] Kailyn Blood MD [address] [place] [address] [facility] Nuclear Medicine [place] [address] [place] [address] [id number] Referral ID Status Reason Start Date Expiration Date V isits Requested Visits Authorized [id number] Closed [facility] CTS 12/02/2019 01/16/2020 1 1 MOTIVE TECHNICIAN Reason for Visit * PET Scan (Routine) - Closed Specialty Diagnoses / Procedures Referred By Cecile yan Referred To Contact Radiology Diagnoses Prostate cancer Solitary lung nodule Procedures PET TUMOR IMG W CT SKL BSE [facility] Kailyn Blood MD [address] [address] Nuclear Medicine [place] [address] [place] [address] [id number] Referral ID Status Reason Start Date Expiration Date V isits Requested Visits Authorized [id number] Closed [facility] CTS 12/02/2019 01/16/2020 1 1 Encounter Details Date Type Department Care Team (Latest Contact Info) Description 12/07/2019 6:08 AM AUTOMOTIVE TECHNICIAN - 12/07/2019 11:59 PM AUTOMOTIVE TECHNICIAN Hospital Encounter [facility] Nuclear Medicine [address] [place] [address] [phone] Kailyn Blood MD [address] [facility] [address] [place] [address] Discharge Disposition: Home or Self Care Social [...] daily. 020 documented as of this encounter Miscellaneous Notes * Treatment Plan - Nestor Dailey, ASSISTED LIVING CARE MANAGER - 12/07/2019 6:30 AM CST ?ISTL [place] Medication and Flush Protocol [facility] Approved by: [facility] - Medical Executive Committee Approval Date: 05/19/2019 ORDERS ARE ENTERED ???PER PROTOCOL?? Enter the protocol in the patient???s electronic health record using World Blenderphrase: .imagingnucmedicineprotocol Communication Orders: o For ordered imaging procedures requiring intravenous access : ??? Initiate a peripheral IV, if not already in place, and discontinue IV prior to discharge (if outpatient). ??? Enter order if needed: Insert Peripheral IV Medication Orders: o Local Anesthetic for use to initiate IV ADULT ??? Lidocaine 4% (L.M.X.4) applied topically ONE TIME prior to IV catheter insertion PRN (L.M.X.4 %should be applied 15 minutes prior to procedure) PEDIATRIC ??? Lidocaine 4% (L.M.X.4) applied topically ONE TIME prior to IV catheter insertion PRN (apply 15 minutes prior to procedure) ??? Sucrose 24%(Tootsweet; Sweet-Ease) oral solution 0.2 mL oral (apply to tongue on pacifier or clean, gloved finger), ONE TIME 2 minutes prior to painful procedure. May repeat dose x1 PRN to complete procedure. o Sodium chloride 0.9% (normal saline) flush 10 mLs PRN for saline lock or medication administration. o For respiratory distress, initiate oxygen and/or increase O2 to maintain saturation greater than 90% Procedure Specific Medications: Adult Procedures & Dosages: o Note: Radiopharmaceuticals dosages with a range are determined by marketing programs specialist calibration PROCEDURE DOSAGE Bone Marrow Imaging In-111 Chloride (Indium-111 Chloride), Administer 2mCi, IV, ONE TIME. OR Px95p-Wnwdes Colloid (Bseysebuyj22w-yjbvuz colloid), Administer 8mCi Tc99m- sulfur colloid, IV, ONE TIME. Bone Pain Therapy - Quadramet Sm-153 (Samarium-153), Administer 1mCi/kg, IV, ONE TIME. Bone Pain Therapy - Xofigo Ra-223 Xofigo, Administer 1.49uCi/kg, IV, ONE TIME. AND Administer 5 mL sodium chloride, IV, repeated up to 5 times for a total of 30mL. Bone Scan Imaging (Whole Body, Limited, 3-Phase, or SPECT) Bb90c-KBA (Vzolrwtjyy75b-dqmtfqmjx diphosphonate), Administer 25mCi, IV, ONE TIME. OR Ul75u-AHD (Bysciizcib71h-yagllekrsxudkmaw diphosphonate), Administer 25mCi, IV, ONE TIME. Brain Imaging Bl96g-XHMG (Xaqbrdxvud28r-kccaefmieu-ldozkxtp-lxmgvdumgim), Administer 20mCi, IV, ONE TIME. Brain SPECT Imaging Pc77p-RADX (Idxjlbhtkc94p-dfdewssrye-ccjfhlfx-dfujecgilbm), Administer 30mCi, IV, ONE TIME. OR Ry61w-DLSVB (Ceretec) (Sbufcqjuby97m-yuhbtuvlxkfmsyyyzlh amine oxime), Administer 20mCi, IV, ONE TIME. OR Tl-201 (Thallium Chloride-201), Administer 6mCi, IV, ONE TIME. Cerebral Flow Imaging Yo17u-OUMG (Qzgxwpppol72g-rymjozxqta-tihyrxgk-pbgsibfhzle), Administer 25mCi,IV, ONE TIME. Cisternogram Imaging In-111 DTPA (Indium-111 kjxadeshdt-tgindaef-miukgsxdgon), Neuroradiologist to administer 500uCi, Intrathecally, ONE TIME. Cystogram Imaging Tc-99m Pertechnetate (Kvzmegemet65x-sbbbhdywgywqd) Administer 1mCi Rx67d-fmieresyssulb, intra-bryant catheter, ONE TIME AND 1000ml NS, intra-bryant catheter, ONE TIME. DaTscan Imaging I-123 Ioflupane (Iodine-123 ioflupane), Administer 5mCi, IV, ONE TIME. AND Administer SSKI (Potassium Iodide) drops, 130mg, Orally, ONE TIME one hour prior to radiopharmaceutical injection. Diuretic Renal Imaging Ky86l-NBNW (Vityfswmcb67w-vymlqmbpwk-lzsomgax-tziiaiyskvk), Administer 5mCi,IV, ONE TIME. AND Administer Lasix (furosemide), 1mg/kg, IV push over 2 minutes, ONE TIME. Maximum dose of 40mg. OR Ay71n-UOD0 (Wvbdrtrisw39j-zbblskftcdgfvvueyldiapr), Administer 5mCi, IV, ONE TIME. AND Administer Lasix (furosemide), 1mg/kg, IV push over 2 minutes, ONE TIME. Maximum dose of 40mg. Diverticulum/Meckel's Imaging Tc-99m Pertechnetate (Jfbtrjsfin21y- pertechnetate), Administer 15mCi,IV, ONE TIME. Esophageal Reflux Imaging Wj53o-Rhncec Colloid (Jyytpptwhw34r-qkzyot colloid), Administer 1mCi in 1oz whole milk or 1oz orange juice. Follow with additional 7oz whole milk or 7 oz orange juice, Orally, ONE TIME. Ga-67 Citrate - Cancer Imaging Ga-67 Citrate (Gallium-67 Citrate), Administer 7mCi, IV, ONE TIME. Ga-67 Citrate - Lymphoma SPECT Imaging Ga-67 Citrate (Gallium-67 Citrate), Administer 10mCi, IV, ONE TIME. Ga-67 Citrate - Whole Body Imaging Ga-67 Citrate (Gallium-67 Citrate), Administer 5mCi, IV, ONE TIME. Gastric Empty Imaging - Solid Meal Zd45s-Vgykdh Colloid (Vfyfowncfk32e-ayeips colloid), Administer 500uCi in 4 oz egg beaters or in 1 package of cooked instant oatmeal, Orally, ONE TIME. Gastric Empty Imaging - Liquid Meal Hr17p-Wckryd Colloid (Rhnqrydfuf87d-themsh colloid), Mzspjvcsoz753yKi in 300mL whole milk, Orally, ONE TIME. GFR Imaging Bf89y-CGDO (Cxoourlhhd39r-jimiotemtw-isprqqyc-wbqloodcqli), Administer 3mCi, IV, ONE TIME. GI Bleed Imaging Tc-99m Pertechnetate (Faatykgqze98a-cjvnxihwuaoxc), Administer 22mCi heparanized RBCs, IV, ONE TIME. Hemangioma Imaging NaPYP (sodium pyrophosphate) AND Tc-99m Pertechnetate (Skhahlcnnn28s-nqsfvqnkrmkve), Administer 6mg PYP, IV, ONE TIME. AND Administer 20mCi Dq12y-pjdumplpddavu, IV, ONE TIME. OR Tc-99m Pertechnetate (Bxqkpghimq12y-qwxybgcjcgugv), Administer 22mCi heparanized RBCs, IV, ONE TIME. Hepatic Artery Perfusion Imaging TC-99m MAA (Oqkklglnhs22q-xrrdahpttjkbjvx albumin), InterventionalRadiologist to administer 3 mCi in three divided doses of 1 mCi each, intra-arterial via catheter, ONE TIME. Hepatobiliary Scan Imaging Tc-99m Mebrofenin (Nnymdrobtl34g-shpocduxqo), Administer 5 mCi IV, ONE TIME *For inpatients only, if bilirubin >5mg/dL, Administer 8 mCi IV, ONE TIME *For inpatients only, if bilirubin > 8mg/dL, consult nuclear medicine physician prior to administering radiopharmaceutical Hepatobiliary Scan with Ejection Fraction Imaging Tc-99m Mebrofenin (Ybzhaqtxes58j-ihigxvyorb), Administer 5 mCi IV, ONE TIME. *For inpatients only, if bilirubin >5mg/dL, Administer 8 mCi IV, ONE TIME *For inpatients only, if bilirubin > 8mg/dL, consult nuclear medicine physician prior to administering radiopharmaceutical AND For immediate use - Sincalide (Kinevac) 0.02 mcg/kg IV, ONE TIME, diluted with NS to a total infused volume of 30 mLs. Infuse via an infusion device over 30 minutes. Hepatobiliary Scan with Pre-Treatment Imaging Tc-99m Mebrofenin (Ajjbutdxpw92d- mebrofenin), Administer 5 mCi IV, ONE TIME. *For inpatients only, if bilirubin >5mg/dL, Administer 8 mCi IV, ONE TIME *For inpatients only, if bilirubin > 8mg/dL, consult nuclear medicine physician prior to administering radiopharmaceutical AND For immediate use - Sincalide (Kinevac) 0.01 mcg/kg IV, ONE TIME, diluted with NS to a total infused volume of 5 mLs, IV push over 5 minutes. Hot PYP Bone Imaging Sc29k-YmXYV (Srapvlonnk44m-haiuan pyrophosphate), Administer 15mCi, IV, ONE TIME. Hot PYP Cardiac Imaging Ln26n-QhVWT (Zolsbxxnqq70u-eqmtvl pyrophosphate), Administer 15mCi, IV, ONETIME. Hot PYP Muscle Imaging Fu87t-TmGJQ (Wucmzazwsc57l-yduipf pyrophosphate), Administer 20mCi, IV, ONE TIME. In-111 WBC Imaging In-111 Oxine (Indium-111 Oxine), Administer at least 400uCi, up to 800uCi, heparanized WBC, IV, ONE TIME. Lacrimal Imaging Sv06s-Ihyajx Colloid (Qcpdclpxqx66c-bunypx colloid), Administer 2 drops per eye qz746gFe/drop, Droplet, ONE TIME. Liver Imaging Ts17q-Udljik Colloid (Kebayndczu60b-wfvjjr colloid), Administer 6mCi, IV, ONE TIME. Lung Perfusion - Obese Patient Imaging Tc-99m MAA (Elxgxmeqsf14n-geagsatezdkdetu albumin), Administer 5mCi for patients > 35BMI, IV, ONE TIME. Lung Perfusion - Obese Patient Imaging Tc-99m MAA (Luffdflbbz14l- macroaggregated albumin),Administer 3mCi for patients > 35BMI, IV, ONE TIME. Lung Perfusion Imaging Tc-99m MAA (Vbfqhprgbs54h-pesfozdynxqdpqj albumin), Administer 4mCi, IV, ONETIME. Lung Perfusion - Patient Imaging Tc-99m MAA (Qvaiitbhwi18n- macroaggregated albumin), Administer 2mCi for patients , IV, ONE TIME. Lung Ventilation Imaging Xe-133 (Xenon-133), Administer at least 10 mCi, up to 30 mCi, inhalation, ONE TIME. Lymphoscintigraphy - Breast Cancer, Next Day Surgery Im54w-Nnzviztlpe (Erwryoguhy07k-cisyvnkthm), Administer 2mCi in 2 divided doses of 1mCi each, intradermal, ONE TIME. AND Lidocaine 4% (L.M.X.4) applied 30 minutes prior to injections, TOPICAL, ONE TIME PRN. Lymphoscintigraphy - Breast Cancer, Same Day Surgery Pt54p-Twoizrnapc (Jzchmroztw76j-czvrulotpr), Administer 500uCi in 2 divided doses of 250uCi each, intradermal, ONE TIME. AND Lidocaine 4% (L.M.X.4) applied 30 minutes prior to injections, TOPICAL, ONE TIME PRN. Lymphoscintigraphy - Malignant Melanoma, Next Day Surgery Tj51g-Lhssbrbkcw (Zumooaedsn47k-zhkqzfdyqg), Administer 2mCi in 4 divided doses of 0.5mCi each, intradermal, ONE TIME. AND Lidocaine 4% (L.M.X.4) applied 30 minutes prior to injections, TOPICAL, ONE TIME PRN. Lymphoscintigraphy - Malignant Melanoma, Same Day Surgery Xe34o-Leeoivphqx (Ocnphfglws48t-tomsddjjlv), Administer 500uCi in 4 divided doses of 125uCi each, intradermal, ONE TIME. AND Lidocaine 4% (L.M.X.4) applied 30 minutes prior to injections, TOPICAL, ONE TIME PRN. Lymphoscintigraphy - Malignant Melanoma, Small Body Area, Next Day Surgery Pf72i-Srediqzvzg (Peuaqdtpsk20c-jppqxwfsgv), Administer 2mCi in 2 divided doses of 1mCi each, intradermal, ONE TIME. AND Lidocaine 4% (L.M.X.4) applied 30 minutes prior to injections, TOPICAL, ONE TIME PRN. Lymphoscintigraphy - Malignant Melanoma, Small Body Area, Same Day Surgery Dn48m-Mqgggpjyjf (Tiepetontb74y-szweucrivm), Administer 500uCi in 2 divided doses of 250uCi each, intradermal, ONE TIME. AND Lidocaine 4% (L.M.X.4) applied 30 minutes prior to injections, TOPICAL, ONE TIME PRN. MIBG Imaging I-123 MIBG (Iodine-123 metaiodobenzylguandidine), Administer 10mCi, IV, ONE TIME. Microsphere Mapping Tc-99m MAA (Ikgbqmljrv02h-cdiwjudigqzlocs albumin), Interventional Radiologist to administer 4 mCi in two divided doses of 2 mCi each, intra-arterial via catheter, ONE TIME. MUGA/RVG Imaging Tc-99m Pertechnetate (Vlhvgtynfk22z-tuldlpazjbfkw), Administer 22mCi heparanized RBCs, IV, ONE TIME. Myocardial Dual Isotope Imaging Tl-201 (Thallium Chloride-201) AND Gb92d-Slnsaew (Xhfaekfknm14q-tfobtah), Administer 3mCi Tl-201for resting images, IV, ONE TIME AND Administer 8mCi Bd66i-bddxebd for stress images, IV, ONE TIME. Myocardial Planar Imaging Hs66y-Scgxhoq (Ybozsoxarm21s-Aizcnjc), Administer 30mCi, IV, ONE TIME marc images, ONE TIME for stress images. Myocardial Rest Imaging - SPECT Imaging Tl-201 (Thallium Chloride-201), Administer 4mCi, IV, ONE TIME. OR Hs19c-Bzvrdad (Bjbsdirhjx92d-Gkvlwye), Administer 4mCi for patients <180 lbs, IV, ONE TIME. OR Vi11r-Yeakyqj (Hpjohfjjph77j-Asvhhnu), Administer 5mCi for patients 181-240 lbs, IV, ONE TIME. OR Pr14r-Uxnbfvy (Nabkltonqb03f-Kboxuak), Administer 6mCi for female patients 241- 265 lbs, IV, ONE TIME. OR Sa53q-Czohjlh (Qzkioayotm74n-Rlkmrfe), Administer 6mCi for male patients 241-330 lbs, IV, ONE TIME. OR Mo38l-Ykkwriq (Iwzlkrqkhi03x-Edqtikj), Administer 8mCi for female patients 266- 399 lbs, IV, ONE TIME. OR Tz33v-Fuporfh (Vhhjzzfnvk63e-Rsyzvdf), Administer 8mCi for male patients 331-299 lbs, IV, ONE TIME. Myocardial Stress - SPECT Imaging Xf69t-Nyamnki (Qoihufrvcl62m-Zoygqqb), Administer 12mCi for patients <180 lbs, IV, ONE TIME. OR Uu02c-Qwbaonk (Antcuqcmxv62w-Btgvuhu), Administer 15mCi for patients 181-240 lbs, IV, ONE TIME. OR Sa88l-Kfmvrlf (Cqgvstntlc01u-Rpcztcj), Administer 18mCi for female patients 241- 265 lbs, IV, ONE TIME. OR Ea83f-Auqtped (Rycgatxnkk79u-Wacicjh), Administer 18mCi for male patients 241- 330 lbs, IV, ONE TIME. OR Au03l-Sfqvfvs (Snakvxblpo29q-Jtrsgkw), Administer 24mCi for female patients 266- 399 lbs, IV, ONE TIME. OR So56p-Qqidnfj (Qbvybqlkys81e-Yrwtggy), Administer 24mCi for male patients 331- 299 lbs, IV, ONE TIME. Myocardial Thallium Stress - Planar Imaging Tl-201 (Thallium Chloride-201), Administer 3mCi IV, ONETIME. Myocardial Viability Imaging Tl-201 (Thallium Chloride-201), Administer 3mCi, IV, ONE TIME. AND Administer 1mCi, IV, ONE TIME 3.5 hours post rest injection. Octreoscan - Planar Imaging In-111 Pentetreotide (Indium-111 Pentetreotide), Administer 3mCi, IV, ONE TIME. Octreoscan - SPECT Imaging In-111 Pentetreotide (Indium-111 Pentetreotide), Administer 6mCi, IV, ONE TIME. Parathyroid Imaging Ch80l-Civjsfdan (Ytnadfyyqy30j-mvgebmdhv), Administer 20mCi, IV, ONE TIME. PET/CT Axumin F-18 Axumin (Gfdezfjw26-iihycmsuqeww), Administer 10mCi, IV, ONE TIME. PET/CT Bone Scan F18-NaF (Baedegio23-uvjkzq fluoride), Administer 0.11mCi/kg with at least 8mCi, upto 14mCi, IV, ONE TIME. PET/CT Brain Imaging F18-FDG (Znaqerlz37-fvjhgcsyvkluhdjfl), Administer 0.11mCi/kg with at least 8mCi, up to 14mCi, IV, ONE TIME. PET/CT Dotatate Imaging Ga-68 Dotatate (Gallium-68 Dotatate), Administer 5.4mCi, IV, ONE TIME. PET/CT Limited, Standard, or Whole-Body Oncology Imaging F18-FDG (Mormdkwh78- flurodeoxyglucose), Administer 0.11mCi/kg with at least 8mCi, up to 14mCi, IV, ONE TIME. PET/CT Myocardial Scan F18-FDG (Rejedsbl41-nkgjglpnkvxkuwnhs), Administer 0.11mCi/kg with at least 8mCi, up to 14mCi, IV, ONE TIME. Post GFR Imaging Qo69z-QIXL (Tfbklxfqpp65t-uacxojovep-priaigoa-qrxiujkyoxs), Administer 12mCi, IV, ONE TIME. OR Mw32o-KAH8 (Saqauezthz39c-vwsmemnkvbyojigihnqywdv), Administer 5mCi, IV, ONE TIME. PY Breath Test C-14 Urea (Carbon-14 Urea), Administer 1 uCi, Orally, ONE TIME. Renal Cortical Imaging Il33j-SLUV (Xdyqsigrix38v-oxpcwdkxkiwjcelvyk acid), Administer 5mCi, IV, ONETIME. Renal Perfusion Imaging Gr44p-DXUO (Vhvvpboanr74k-sanjtqmycb-dgbajfxr-zxekjhdaafw), Administer 15mCi, IV, ONE TIME. OR Nq30m-NNV8 (Kjebdzkqih51z-lqczfdyqosntwbhzzxzhsef), Administer 5mCi, IV, ONE TIME. Renogram Imaging My34j-WTAQ (Mcsfbaogox18y-kocgymhzik-gnmnsmyi-rpfcevaupri), Administer 5mCi, IV, ONE TIME. OR Do52q-HYB0 (Dronfbcowv43i-qbyolyikpzqmpafwjaamkqi), Administer 5mCi, IV, ONE TIME. Renogram with Flow Imaging Lw64i-IOJL (Zbcjnnqtwp96m-vtkmjukxgv-xnbxajzg-detbohqosmg), Administer 5mCi, IV, ONE TIME. OR Hx35h-ZHP5 (Iwotydjqmh73g-odyzphknexpiowjtofrnvst), Administer 5mCi, IV, ONE TIME. Salivary Imaging Tc-99m Pertechnetate (Khqdssosqv66p-oeypaylfyobqk), Administer 5mCi, Orally, ONE TIME. Shunt Patency Imaging Pr14i-USPM (Ckvxbuyzym57t-cmwbdsvfhd-whrdhvwa-osdorzhsibt), Neuroradiologist to administer 500uCi, intra-shunt reservoir, ONE TIME. Substernal Thyroid Imaging I-131 Na Iodide (Iodide-131 Na Iodide), Administer 100 uCi, Orally, ONE TIME. Ml32h-OBK Imaging Ta47e-Qzvqdst (Gavlrrmqkg78l-Evcrtms), Administer at least 15mCi, up to 20mCi, heparanized WBC, IV, ONE TIME. Testicular Imaging Tc-99m Pertechnetate (Zcyhbwhwrm30y-qmqvvwcycqaqs), Administer 15mCi, IV, ONE TIME. Thallium Whole Body Scan Imaging Tl-201 (Thallium Chloride-201), Administer 3mCi, IV, ONE TIME. Thyrogen Injection Thyrogen (thyrotopin amy), Administer 0.9mg, deep IM, every 24 hours for 2 doses. Thyroid Imaging Tc-99m Pertechnetate (Dgbyiwqjvb85x-zapnikahztfyb), Administer 5mCi, IV, ONE TIME. Thyroid Scan/Uptake I-123 Na Iodide (Iodide-123 Na Iodide), Administer at least 200 uCi, up to 400 uCi, Orally, ONE TIME. Thyroid Uptake I-131 Na Iodide (Iodide-131 Na Iodide), Administer at least 5 uCi, up to 25 uCi, Orally, ONE TIME. Vasotec/Enalaprilat Renal Imaging Su07c-QOVR (Djrqnyauzl41o-yftxdwitbn-ehxjnsmr-xtqlpzxgweq), Administer 5mCi, IV, ONE TIME. AND Administer Enalaprilat (Vasotec) 0.04mg/kg with a maximum dose of 2.5mg. Dilute to 5mL total volumewith normal saline and infuse via infusion device over 5 minutes. OR Qo57g-CSU2 (Qnxrlythbv79u-xzmnogczxhpxaywfssymllr), Administer 5mCi, IV, ONE TIME. AND Administer Enalaprilat (Vasotec) 0.04mg/kg with a maximum dose of 2.5mg. Dilute to 5mL total volumewith normal saline and infuse via infusion device over 5 minutes. Venography Imaging NaPYP (sodium pyrophosphate) AND Tc-99m Pertechnetate (Lefntcwjto09l-wlubzpcfrojbk), Administer 6mg NaPYP, IV, ONE TIME AND Administer 15mCi Rx31y-ooepiubqbikmi, IV, ONE TIME. Whole Body I-131 Imaging I-131 Na Iodide (Iodide-131 Na Iodide), Administer 3 mCi, Orally, ONE TIME. Pediatric Procedures & Dosages: o Note: Radiopharmaceuticals dosages with a range are determined by marketing programs specialist calibration PROCEDURE DOSAGE Bone Scan Imaging (Whole Body, Limited, 3-Phase, or SPECT) Sw54x-XXX (Edyhqlatym49o-sxdilffgt diphosphonate), Administer 0.25mCi/kg with at least 1mCi, up to 20mCi, IV, ONE TIME. Brain Imaging Hf00b-SAAU (Xtlxjymvdd17r-axnauziixw-plcrnrow-wxlbwlwwuxh), Administer 0.8mCi/kg with at least 5mCi, up to 20mCi, IV, ONE TIME. Cisternogram Imaging In-111 DTPA (Indium-111 vsplyoypxl-rmgczrxo-sywantbpmkm), Neuroradiologist to administer 4uCi/kg with at least 50uCi, up to 300uCi, Intrathecally, ONE TIME. Cystogram Imaging Tc-99m Pertechnetate (Wxkyxqxslf49r-acthjkdhejplf) Administer 1mCi, intra-bryant catheter, ONE TIME AND Administer 500ml-1000ml NS, intra-bryant catheter, ONE TIME. Diuretic Renal Imaging Xj62a-EYSX (Dbmohjylln47p-chhuzuixqw-olklfshg-cefvrfhfhvj), Administer 0.2mCi/kg with at least 2.5mCi, up sm84eAb , IV, ONE TIME. AND Administer Lasix (furosemide), 1mg/kg, up to 40mg, IV push over 2 minutes, ONE TIME. OR Fj09d-FTU9 (Aosylygbbn17t-kvwctddubcfmivnpcblbicm), Administer 0.1mCi/kg with at least 1mCi, up to 5mCi, IV, ONE TIME. AND Administer Lasix (furosemide), 1mg/kg, up to 40mg, IV push over 2 minutes, ONE TIME. Diverticulum/Meckel's Imaging Tc-99m Pertechnetate (Qnagpkblqy69t- pertechnetate), Administer 0.05mCi/kg with at least 2.5mCi, up to 15mCi, IV, ONE TIME. Esophageal Reflux Imaging - <1yoa Li34w-Exuosa Colloid (Izhaltlukw34p-wqjlop colloid), Administer 0.1mCi for patients <3.5lbs, Orally, ONE TIME. OR Administer 0.2mCi for patients 3.5-6.5lbs, Orally, ONE TIME. OR Administer 0.3mCi for patients >6.5lbs, Orally, ONE TIME. *For all administrations, mix half of formula or breast milk feeding amount with radiopharmaceutical. Follow with remainder of feeding amount. Esophageal Reflux Imaging - >1yoa Ng43e-Dyztxw Colloid (Unmsgwpndq15d-wlwkin colloid), Administer 0.5mCi in 1 oz whole milk, Orally, ONE TIME. Follow with 7 oz whole milk. Ga-67 Citrate - Infection Imaging Ga-67 Citrate (Gallium-67 Citrate), Administer 0.055mCi/kg with at least 0.5mCi, up to 5.5mCi, IV, ONE TIME. Ga-67 Citrate - Malignancy Imaging Ga-67 Citrate (Gallium-67 Citrate), Administer 0.110mCi/kg with at least 0.5mCi, up to 8mCi, IV, ONE TIME. Ga-67 Citrate - Whole Body Imaging Ga-67 Citrate (Gallium-67 Citrate), Administer 0.05mCi/kg with at least 0.25mCi, up to 5mCi, IV, ONE TIME. Gastric Empty Imaging - Liquid Meal Oz74i-Toijfo Colloid (Kzhleyhzea50l-cykmtp colloid), Administer0.5mCi in 300mL whole milk or formula, Orally, ONE TIME. Gastric Empty Imaging - Solid Meal Cq99v-Gdcmqn Colloid (Amuktwpexx58f-klfcib colloid), Administer 500uCi in 4 oz egg beaters or in 1 package of cooked instant oatmeal, Orally, ONE TIME. GI Bleed Imaging Tc-99m Pertechnetate (Sumtetlpld92a-exmarhaqbqzug), Administer 0.2mCi heparanized RBCs with at least 1mCi, up to 20mCi, IV, ONE TIME. Hemangioma Imaging Tc-99m Pertechnetate (Jeeaejdswk75u-btuxehhsrqulj), Administer 0.2mCi heparanized RBCs with at least 1mCi, up to 20mCi, IV, ONE TIME. Hepatobiliary Scan Imaging Tc-99m Mebrofenin (Xnvnxrbuep47i-yxherzvmgv), Administer .05mCi/kg with a at least 1mCi, up to 5mCi IV, ONE TIME Hepatobiliary Scan with Ejection Fraction Imaging Tc-99m Mebrofenin (Zybytmgesy55p-oyvxzartdt), Administer .05mCi/kg with a at least 1mCi, up to 5mCi IV, ONE TIME AND For immediate use - Sincalide (Kinevac) 0.02 mcg/kg IV, ONE TIME, diluted with NS to a total infused volume of 30 mLs. Infuse via an infusion device over 30 minutes. Hepatobiliary Scan with Pre-Treatment Imaging Tc-99m Mebrofenin (Eryiiqgsfw31h- mebrofenin), Administer 0.05mCi/kg with a at least 1mCi, up to 5mCi IV, ONE TIME AND For immediate use - Sincalide (Kinevac) 0.01 mcg/kg IV, ONE TIME, diluted with NS to a total infused volume of 5 mLs., IV push over 5 minutes. Hot PYP Bone Imaging Cd23p-NfGQY (Sybxmpberl28y-dtxlfd pyrophosphate), Administer 0.6mCi/kg, with at least 2.5mCi, up to 20mCi IV, ONE TIME. Hot PYP Cardiac Imaging Hx81x-PyGRS (Dukalotfgc52q-lftglg pyrophosphate), Administer 0.6mCi/kg, with at least 2.5mCi, up to 20mCi IV, ONE TIME. In-111 WBC Imaging In-111 Oxine (Indium-111 Oxine), Administer 20uCi/kg with at least 50uCi, up to 300uCi, heparanized WBC, IV, ONE TIME. Liver/Spleen Imaging Lt44g-Tsmbpg Colloid (Ffwfmhwbel13f-pywfdi colloid), Administer 0.05mCi/kg with at least 0.4mCi, up to 3mCi, IV, ONE TIME. Lung Perfusion Imaging Tc-99m MAA (Ndppkgqtpg14z-vbptfiycfavmxgk albumin), Administer 0.03mCi/kg, with at least 0.4mCi, up to 3mCi IV, ONE TIME. Lung Ventilation Imaging Xe-133 (Xenon-133), Administer at least 4 mCi, up to 7 mCi, inhalation, ONE TIME. MIBG Imaging I-123 MIBG (Iodine-123 metaiodobenzylguandidine), Administer 0.14mCi/kg with at least 2mCi, up to 10mCi, IV, ONE TIME AND Administer SSKI (Potassium Iodide) drops 1 hour prior to radiopharmaceutical injection. ??? * to 1 month: 16mg, Orally, ONE TIME. ??? * 1 month to 3 years of age: 32mg, Orally, ONE TIME. ??? * Greater than 3 years to 18 years of age: 65mg, Orally, ONE TIME. MUGA/RVG Imaging Tc-99m Pertechnetate (Anvdtxudqg80v-vhftmgqfqajpv), Administer 0.2mCi/kg heparanized RBCs with at least 1mCi, up to 20mCi, IV, ONE TIME. Myocardial Rest Imaging - SPECT Imaging Tk12c-Cryaukp (Mwzsfmgaws33p-Agilwwp), Administer at least 5.18mCi, up to 6.08mCi, IV, ONE TIME. Consult authorized user prior to administration. Dosage based on Keyes's Rule (age+1/age+7)*8 Myocardial Stress Imaging - SPECT Imaging By43f-Nibytys (Dotliigvqz05i-Gtzajjn), Administer at least 15.5mCi, up to 18.24mCi, IV, ONE TIME. Consult authorized user prior to administration. Dosage based on Keyes's Rule (age+1/age+7)*24 Myocardial Viability Imaging Tl-201 (Thallium Chloride-201), Administer .035mCi/kg, at least 0.25mCi, up to 2mCi, IV, ONE TIME. Octreoscan - Planar Imaging In-111 Pentetreotide (Indium-111 Pentetreotide), Administer 0.04mCi/kg with at least 0.5mCi, up to 6mCi, IV, ONE TIME. Octreoscan - SPECT Imaging In-111 Pentetreotide (Indium-111 Pentetreotide), Administer 0.08mCi/kg with at least 0.5mCi, up to 6mCi, IV, ONE TIME. Parathyroid Imaging Sq20g-Mqufblpbo (Ryrqkoulek35g-yigqsknvq), Administer at least 5.18mCi, up to 6.08mCi, IV, ONE TIME. Dosage based on Keyes's Rule (age+1/age+7)*8 PET/CT Brain Imaging F18-FDG (Wcblbmxk30-conyiomndaozndnuv), Administer 0.11mCi/kg with at least 1mCi, up to 10mCi, IV, ONE TIME. PET/CT Limited, Standard, or Whole-Body Oncology Imaging F18-FDG (Wqoqpecg34- flurodeoxyglucose), Administer 0.11mCi/kg with at least 2mCi, up to 10mCi, IV, ONE TIME. Renal Cortical Imaging Oc75d-FCDI (Gxwhvoexrz31j-alqsxqnxgwecvickqy acid), Administer 0.05mCi/kg with at least 0.5mCi, up to 2.5mCi, IV, ONE TIME. Renogram Imaging Yz34w-PGYL (Bnmmxixpoe47o-qducqghdot-eakecgiv-hjowybjlkxd), Administer 0.2mCi/kg with at least 2.5mCi, up gv02cJw OR Uc62b-VWV4 (Zinhpsbfyw30x-eangbmynsbpcvjschagrxjy), Administer 0.1mCi/kg with at least 1mCi, up to 5mCi, IV, ONE TIME. Renogram with Flow Imaging Ra72j-FMIS (Tdvzqhulzm73t-olpfwymnla-lgcvofet-bstryyopbtm), Administer 0.2mCi/kg with at least 2.5mCi, up fm17uAl OR Kq13o-OTC6 (Geivuhrmyg80o-runamasequqhrigfradqamk), Administer 0.1mCi/kg with at least 1mCi, up to 5mCi, IV, ONE TIME. Aw77c-QQF Imaging Dc24s-Wjbdzpk (Teaspkbtpv44k-Ytbbfbf), Administer 0.6mCi/kg heparanized WBC, IV, ONE TIME. Confirm calculated dose with nuclear medicine physician prior to injection. Testicular Imaging Tc-99m Pertechnetate (Kdkbjqnhkv96m-epesvyfdwuhrr), Administer 0.4mCi/kg with atleast 5mCi, up to 15mCi, IV, ONE TIME. Thyroid Imaging Tc-99m Pertechnetate (Xibwsuctwz44c-xhzkqqnzrpskw), Administer 0.07mCi/kg with at least 1mCi, up to 5mCi, IV, ONE TIME. Thyroid Scan/Uptake I-123 Na Iodide (Iodide-123 Na Iodide), Administer at least 100uCi, up to 200uCi, Orally, ONE TIME. Thyroid Scan/Uptake I-131 Na Iodide (Iodide-131 Na Iodide), Administer at least 2uCi, up to 20uCi, Orally, ONE TIME. Vasotec/Enalaprilat Renal Imaging Ge03i-SPUL (Ydnulgunyf03a-blztrrrmyd-gmqrzeak-zwxvbzqvkls), Administer 0.2mCi/kg with at least 2.5mCi, up tn83hOw AND Administer Enalaprilat (Vasotec) 0.03mg/kg, up to 2.5mg. Dilute to 5mL total volume with normal saline and infuse via infusion device over 5 minutes. OR Gq72p-TNM9 (Kbmlhyibbg00s-orxdsnlwzeyrqeuulycmgrg), Administer 0.1mCi/kg with at least 1mCi, up to 5mCi, IV, ONE TIME. AND Administer Enalaprilat (Vasotec) 0.03mg/kg, up to 2.5mg. Dilute to 5mL total volume with normal saline and infuse via infusion device over 5 minutes. MOTIVE TECHNICIAN documented in this encounter Plan of Treatment Upcoming Encounters Date Type Department Care Team (Late st Contact Info) Description 12/13/2024 9:45 AM AUTOMOTIVE TECHNICIAN Office Visit [facility] Oncology and Hematology - [place] [address] [place] [address] Glenn Al MD [address] [place] [address] documented as of this encounter Procedures Procedure Name Priority Date/Time Associated Diagnosis Comments PET TUMOR OR INFECTION IMG W CT SKB MDTH Routine 12/07/2019 7:32 AM AUTOMOTIVE TECHNICIAN Prostate cancer Solitary lung nodule documented in this encounter Results * PET TUMOR IMG W CT SKL BSE MID THG (12/07/2019 7:32 AM AUTOMOTIVE TECHNICIAN) Anatomical Region Laterality Modality Positron Emissio n Tomography (PET) 12/07/2019 7:32 AM AUTOMOTIVE TECHNICIAN Impressions 12/07/2019 7:53 AM AUTOMOTIVE TECHNICIAN IMPRESSION: 1. Mildly FDG positive right lower lobe pulmonary nodule, suspicious for metastatic disease. 2. Intense abnormal activity in the sclerotic posterior left acetabulum, indicating unifocal osseous metastatic disease. 3. Postsurgical changes as above. DICTATION LOCATION: Location 1 - [facility] 12/07/2019 7:53 AM AUTOMOTIVE TECHNICIAN PET TUMOR IMG W CT SKL BSE MID G DATE: 12/07/2019 7:32 AM Subsequent Treatment Strategy HISTORY: 79 years Male with a history of prostate carcinoma, first diagnosed in 2001, treated with prostatectomy. Recent CT imaging demonstrated left posterior acetabulum sclerotic lesion and a 1.5 cm right lower lobe pulmonary nodule. PSA levels have risen significantly. A new PET-CT study is needed for re-staging. ?? PROCEDURE: Radiopharmaceutical: F18 FDG 8.89 mCi intravenously, [...] is present. Patient is status post prostatectomy. Procedure Note Nestor Nelson DO - 12/07/[address] SKL BSE [...] is present. Patient is status post prostatectomy. IMPRESSION: 1. Mildly FDG positive right lower lobe pulmonary nodule, suspicious for metastatic disease. 2. Intense abnormal activity in the sclerotic posterior left acetabulum, indicating unifocal osseous metastatic disease. 3. Postsurgical changes as above. DICTATION LOCATION: Location 1 - [facility] Kailyn Blood MD PE ORDERABLES documented in this encounter Visit Diagnoses Diagnosis Prostate cancer Malignant neoplasm of prostate Solitary lung nodule Solitary pulmonary nodule documented in this encounter Administered Medications Inactive Administered Medications - up to 3 most recent administrations Medication Order MAR Action Action Date Dose Rate Site sodium chloride flush injection 10 mL 10 mL, IV, ONE TIME ONLY, 1 dose, On Thu12/07/19 at 0630, Routine Given 12/07/2019 6:30 AM AUTOMOTIVE TECHNICIAN 10 mL documented in this encounter Care Teams News Operations Manager Relationship Specialty Start Date End Date Ilan Whitley DO [address] [place] [address] PCP - General 09/07/09 07/31/20 documented as of this encounter
--- OUTSIDE RECORDS SUMMARY | 2024-10-30 02:33 | XMS_ITS | Encounter Summary ---
Author Organization [facility] Address [address] [place] [address] Care Team Providers Care Supervisor Scrap Preparation Name Role Phone Gutierrez Ilan Sousa Primary Care Provider Reason for Referral * CT Scan (Routine) - Closed Specialty Diagnoses / Procedures Referred By Cecile yan Referred To Contact CT Scan Diagnoses Prostate cancer Solitary lung nodule Procedures CT GUIDED BIOPSY Kailyn Blood MD [address] [facility] [place] [address] Referral ID Status Reason Start Date Expiration Date V isits Requested Visits Authorized [id number] Closed ST[facility] CTS 12/08/2019 01/06/2020 1 1 CLASSIFIER * PET Scan (Routine) - Closed Specialty Diagnoses / Procedures Referred By Cecile yan Referred To Contact Radiology Diagnoses Prostate cancer Solitary lung nodule Procedures PET TUMOR IMG W CT SKL BSE MID THG Kailyn Blood MD [address] [place] [address] [facility] [address] [place] [address] [phone] Referral ID Status Reason Start Date Expiration Date V isits Requested Visits Authorized [id number] Closed STL CTS 12/02/2019 01/16/2020 1 1 CLASSIFIER Reason for Visit * Reason Comments Establish Care Encounter Details Date Type Department Care Team (Late st Contact Info) Description 11/30/2019 3:15 PM TILE CLASSIFIER Office Visit [facility] ONCOLOGY AND HEMATOLOGY - [place] [address] [place] [phone] Kailyn Blood MD [address] [facility] [address] [place] [address] Prostate cancer (Primary Dx); Solitary lung nodule Social History Tobacco Use Types Packs/Day Years [...] Sign Reading Time Taken Comments Blood Pressure 136/70 11/30/2019 2:54 PM TILE CLASSIFIER Pulse 67 11/30/2019 2:54 PM TILE CLASSIFIER Temperature 37.2 ??C (98.9 ??F) 11/30/2019 2:54 PM CS T Respiratory Rate 16 11/30/2019 2:54 PM TILE CLASSIFIER Oxygen Saturation - - Inhaled Oxygen Concentration - - Weight 68.5 kg (151 lb) 11/30/2019 2:54 PM TILE CLASSIFIER Height 172.7 cm (5' 8 ) 11/30/2019 2:54 PM TILE CLASSIFIER Body Mass Index 22.96 11/30/2019 2:54 PM TILE CLASSIFIER documented in this encounter Progress Notes * Kailyn Blood MD - 12/01/2019 6:39 AM CST This office note has been dictated. CLASSIFIER documented in this encounter H&P Notes * Kailyn Blood MD - 12/01/2019 7:06 AM CST [facility] - Cancer Care [address] [place] [address] Patient: ILAN MCCAULEY CSN: [id number] : 1940 Provider: Kailyn Blood MD HISTORY AND PHYSICAL EXAMINATION DATE OF CONSULTATION: 11/30/2019 REFERRING PHYSICIAN: Jb Villanueva MD REASON FOR CONSULTATION: Metastatic prostate cancer. HISTORY OF PRESENT ILLNESS: The patient is a 79-year-old white male with a history of prostate cancer in 2011. At that time, heunderwent a radical prostatectomy. The pathology report indicated a [place] 8 adenocarcinoma of theprostate. There was extracapsular extension. It was a pT3 disease. There was no seminal vesicle invasion. Margins were negative. Therefore, no evidence of lymph node metastases. Postoperatively, the patient had a PSA checked regularly. His PSA was negative until 2012, when he was 0.3. According to the patient, he was then followed by Dr. Whitley, and his PSA level was monitored regularly. The patient's most recent PSA went up to 9.7. The patient then developed decreased urination flow. He said he could not totally empty his bladder. He denies any dysuria or hematuria. He denies any pain,shortness of breath, wheezing, coughing, or nausea. The patient had a CT scan of abdomen and pelvisdone on November 28 which revealed a 1.5 cm right lower lobe nodule suspicious for malignancy. There were also areas of sclerosis involving the left posterior acetabulum, measures 3.5 cm. The patient is referred here for further evaluation regarding his likely recurrent prostate cancer. PAST MEDICAL HISTORY: The patient has a history of hypertension, hyperlipidemia. MEDICATIONS: Avapro, fish oil. ALLERGIES: He is allergic to codeine and Bystolic. HABITS: The patient quit smoking many years ago. He denies any alcohol abuse or illicit drug abuse. SOCIAL HISTORY: He is . He lives with . FAMILY HISTORY: He denied any family history of any cancer or blood disorder. REVIEW OF SYSTEMS: GENERAL: No fever, chills, night sweats, fatigue, weight loss, or anorexia. SKIN: No rashes. No itching. ENT: No nose bleed. No hearing loss or sore throat. 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 PULMONARY: No shortness of breath, wheezing, coughing, hemoptysis. CARDIOVASCULAR: No chest pain, PND, orthopnea, or palpitation. EYES: No visual disturbances or drainage. HEMATOPOIETIC: No bleeding or clotting problems. ENDOCRINE: No polydipsia, polyuria, or nervousness. GI: No nausea, vomiting, diarrhea, or melena. : Please see HPI. MUSCULOSKELETAL: No joint pain, joint effusion, or back pain. PHYSICAL EXAMINATION: GENERAL: Alert and oriented x3. No apparent distress. SKIN: No rashes. No ecchymosis or petechiae. HEENT: PERRLA. EOMI. Normal mucosa. NECK: Supple. No JVD. No lymphadenopathy or thyromegaly. CHEST: Clear to auscultation bilaterally. HEART: Regular rate and rhythm. Normal S1, S2. No murmur. ABDOMEN: Soft and nontender. No hepatosplenomegaly. Bowel sounds normal. EXTREMITIES: No peripheral edema. Bilateral pulses equal. NEUROLOGIC: No motor or sensory deficits. Cranial nerves intact. LABORATORY DATA: WBC 7.2 hemoglobin 14.1, platelets 250,000. Creatinine 0.81, total bilirubin 0.5. PSA 8.7. IMPRESSION: 1. Prostate cancer. 2. Pulmonary nodule. In summary, the patient is a 79-year-old white male who has a history of Alexandria 8 prostate cancer.He developed a detectable PSA in 2012. The PSA has been gradually increasing over the last few years. It was now 8.7, earlier this month. I recommend he have a PET scan for staging to further evaluate his pulmonary nodule as well as his possible bone lesion. Differential diagnosis includes metastatic prostate cancer versus a primary lung cancer with bony metastases. I recommend he undergo a CT-guided biopsy of the right lower lobe lung nodule for tissue diagnosis. If he does have a metastatic prostate cancer, I would recommend he begin androgen deprivation treatment. RECOMMENDATIONS: 1. The patient will have a PET scan for staging. 2. I will order CT guided biopsy of his right lower lobe lung nodule for tissue diagnosis. 3. The patient will return in 2 weeks for reevaluation. Kailyn Blood MD MMODL D: [id number] V: [id number] cc: MD Ilan Dale DO CLASSIFIER documented in this encounter Plan of Treatment Upcoming Encounters Date Type Department Care Team (Late st Contact Info) Description 12/13/2024 9:45 AM TILE CLASSIFIER Office Visit [facility] Oncology and Hematology - [place] [address] [place] [address] Glenn Al MD [address] [place] [address] documented as of this encounter Results * CT GUIDED BIOPSY (12/12/2019 11:02 AM TILE CLASSIFIER) Anatomical Region Laterality Modality Computed Tomogra phy, Other 12/12/2019 11:2 2 AM TILE CLASSIFIER Impressions 12/12/2019 1:20 PM TILE CLASSIFIER IMPRESSION: Successful left posterior iliac bone lesion biopsy. PLAN: Please follow up sampling results for final diagnosis. The examination was performed with the adjustment of mA according to the patient size and/or the use of Iterative Reconstruction Technique. Narrative 12/12/2019 1:20 PM TILE CLASSIFIER PROCEDURE/EXAM(S): CT GUIDED LEFT POSTERIOR ILIAC BONE LESION BIOPSY TIME/DATE: 12/12/2019 11:02 AM. DICTATION LOCATION: Location 1 - [facility] CLINICAL INFORMATION/INDICATION: Male of 79 years age [...] TIME/DATE: 12/12/2019 11:02 AM. DICTATION LOCATION: Location 1 - [facility] CLINICAL INFORMATION/INDICATION: Male of 79 years age [...] Technique. Kailyn Blood MD CT ORDERABLES * PET TUMOR IMG W CT SKL BSE MID THG (12/07/2019 7:32 AM TILE CLASSIFIER) Anatomical Region Laterality Modality Positron Emissio n Tomography (PET) 12/07/2019 7:32 AM TILE CLASSIFIER Impressions 12/07/2019 7:53 AM TILE CLASSIFIER IMPRESSION: 1. Mildly FDG positive right lower lobe pulmonary nodule, suspicious for metastatic disease. 2. Intense abnormal activity in the sclerotic posterior left acetabulum, indicating unifocal osseous metastatic disease. 3. Postsurgical changes as above. DICTATION LOCATION: Location 1 - [facility] Narrative 12/07/2019 7:53 AM TILE CLASSIFIER PET TUMOR IMG W CT SKL BSE [...] Postsurgical changes as above. DICTATION LOCATION: Location - [facility] Kailyn Blood MD, PE ORDERABLES documented in this encounter Visit Diagnoses Diagnosis Prostate cancer- Primary Malignant neoplasm of prostate Solitary lung nodule Solitary pulmonary nodule Prostate cancer Malignant neoplasm of prostate Solitary lung nodule Solitary pulmonary nodule Prostate cancer Malignant neoplasm of prostate Solitary lung nodule Solitary pulmonary nodule documented in this encounter Care Teams Supervisor Scrap Preparation Relationship Specialty Start Date End Date Ilan Whitley DO [address] [place] [address] PCP - General 09/07/09 07/31/20 documented as of this encounter
--- OUTSIDE RECORDS SUMMARY | 2024-10-30 02:33 | XMS_ITS | Encounter Summary ---
Author Organization [facility] Address [address] [place] [address] Care Team Providers Care Flight Communications Operator Name Role Phone Ilan Whitley DO Primary Care Provider Reason for Referral * CT Scan (Routine) - Closed Specialty Diagnoses / Procedures Referred By Cecile yan Referred To Contact CT Scan Diagnoses Slow urinary stream Procedures CT ABDOMEN PELVIS WO CONTRAST Jb Villanueva MD NO ADDRESS ON FILE [address] Scan [address] [place] [address] Referral ID Status Reason Start Date Expiration Date V isits Requested Visits Authorized [id number] Closed STL CTS 11/22/2019 12/21/2019 1 1 ATION SUPERVISOR Reason for Visit * CT Scan (Routine) - Closed Specialty Diagnoses / Procedures Referred By Cecile yan Referred To Contact CT Scan Diagnoses Slow urinary stream Procedures CT ABDOMEN PELVIS WO CONTRAST Jb Villanueva MD NO ADDRESS ON FILE [address] Scan [address] [place] [address] Referral ID Status Reason Start Date Expiration Date V isits Requested Visits Authorized [id number] Closed STL CTS 11/22/2019 12/21/2019 1 1 Encounter Details Date Type Department Care Team (Latest Contact Info) Description 11/28/2019 11:49 AM OPERATION SUPERVISOR - 11/28/2019 11:59 PM OPERATION SUPERVISOR Hospital Encounter [facility] [address] [place] [address] Jb Villanueva MD NO ADDRESS ON FILE Discharge Disposition: Home or Self Care Social [...] st Contact Info) Description 12/13/2024 9:45 AM OPERATION SUPERVISOR Office Visit [facility] Oncology and Hematology - [place] [address] [facility] [address] [place] [address] Glenn Al MD [address] [facility] [address] [place] [address] documented as of this encounter Procedures Procedure Name Priority Date/Time Associated Diagnosis Comments CT ABDOMEN PELVIS WO CONTRAST Routine 11/28/2019 12:03 PM OPERATION SUPERVISOR Slow urinary stream documented in this encounter Results * CT ABDOMEN PELVIS WO CONTRAST (11/28/2019 12:03 PM OPERATION SUPERVISOR) Anatomical Region Laterality Modality Abdomen Computed Tomogra phy 11/28/2019 12:0 7 PM OPERATION SUPERVISOR Impressions 11/29/2019 8:53 AM OPERATION SUPERVISOR IMPRESSION: 1. No evidence of renal calculi [...] of Iterative Reconstruction Technique. DICTATION LOCATION: Location [address] [place], [place] [address] 11/29/2019 8:[address] ABDOMEN AND PELVIS DATE: 11/28/2019 HISTORY: [...] of Iterative Reconstruction Technique. DICTATION LOCATION: Location [address] [place] [address] ORDERABLES documented in this encounter Visit Diagnoses Diagnosis Slow urinary stream Slowing of urinary stream documented in this encounter Care Teams Flight Communications Operator Relationship Specialty Start Date End Date Ilan Whitley DO [address] [facility] [address] [place] [address] PCP - General 09/07/09 07/31/20 documented as of this encounter
--- OUTSIDE RECORDS SUMMARY | 2024-10-30 02:34 | XMS_ITS | Encounter Summary ---
Author Organization [facility] Address [address] [place] [address] Care Team Providers Care Die Cast Die Maker Name Role Phone Ilan Whitley DO Primary Care Provider Reason for Visit * Reason Onset Date Comments Labs Only 11/30/2012 Encounter Details Date Type Department Care Team (Late st Contact Info) Description 11/30/2012 Telephone [facility] Internal Medicine [place] [id number] [place] [address] Ilan Whitley DO [address] [facility] [address] [place] [address] Labs Only Social History Tobacco Use Types [...] encounter Miscellaneous Notes * Telephone Encounter - Trisha Leblanc - 11/30/2012 3:48 PM CST Order placed in system/ fax to [facility]/ WOO RATION TECHNICIAN * Telephone Encounter - Ilan Whitley DO - 11/30/2012 12:40 PM GENERATION TECHNICIAN psa screen RATION TECHNICIAN * Telephone Encounter - Pat Higgins - 11/30/2012 9:50 AM CST Pt calling for postop psa test [facility] - fax# [phone]; Wants to know if we can write the orders to let the lab release to pt - RATION TECHNICIAN documented in this encounter Plan of Treatment Upcoming Encounters Date Type Department Care Team (Late st Contact Info) Description 12/13/2024 9:45 AM GENERATION TECHNICIAN Office Visit [facility] Oncology and Hematology [facility] [address] [facility] [address] [place] [address] Glenn Al MD [address] [facility] [address] [place] [address] Scheduled Orders Name Type Priority Associated Diagnoses Orde r Schedule PSA MEDICARE SCREEN Lab Routine Special screening for malignant neoplasm of prostate 1 Occurrences starting 11/30/2012 until 11/30/2013 documented as of this encounter Procedures Procedure Name Priority Date/Time Associated Diagnosis Comments PSA Routine 06/07/2013 8:24 AM CDT PSA Routine 12/02/2012 7:51 AM GENERATION TECHNICIAN documented in this encounter Results * PSA (06/07/2013 8:24 AM CDT) PSA 0.3 < OR = 4.0 ng/mL [facility] Comment: This test was performed using the Siemens chemiluminescent method. Values obtained from different assay methods cannot be used interchangeably. PSA levels, regardless of value, should not be interpreted as absolute evidence of the presence or absence of disease. Test Performed at: [facility] [address] [place], [place] ??[phone] OLIVIA DU DO,MPH 06/07/2013 8:24 AM CDT Ilan Whitley DO MAXWELL MALCOLM Performing Organization Address [facility] Phone Number INTERFACE SYSTEM Refer to clinic/hospital department [facility] [address] [place] [address] * PSA (12/02/2012 7:51 AM GENERATION TECHNICIAN) PSA <0.1 < OR = 4.0 ng/mL [facility] Comment: This test was performed using the Siemens chemiluminescent method. Values obtained from different assay methods cannot be used interchangeably. PSA levels, regardless of value, should not be interpreted as absolute evidence of the presence or absence of disease. Test Performed at: [facility] ??[phone] OLIVIA DU DO,MPH 12/02/2012 7:51 AM GENERATION TECHNICIAN Ilan Whitley DO MAXWELL MALCOLM Performing Organization Address [facility] Phone Number INTERFACE SYSTEM Refer to clinic/hospital department [facility] [address] [place] [address] documented in this encounter Visit Diagnoses Diagnosis Special screening for malignant neoplasm of prostate- Primary documented in this encounter Care Teams Die Cast Die Maker Relationship Specialty Start Date End Date Ilan Whitley DO [address] [place] [address] PCP - General 09/07/09 07/31/20 documented as of this encounter
--- OUTSIDE RECORDS SUMMARY | 2024-10-30 02:34 | XMS_ITS | Encounter Summary ---
Author Organization [facility] Address [address] [place] [address] Care Team Providers Care Repair Operator Name Role Phone Gutierrez Ilan Sousa DO Primary Care Provider Reason for Visit * Auth/Cert Specialty Diagnoses / Procedures Referred By Cecile t Referred To Contact Critical Care Medicine Diagnoses Fever [facility] [address] [place] [address] Referral ID Status Reason Start Date Expiration Date Visits Re quested Visits Authorized [id number] 11/26/2015 12/26/2016 1 Encounter Details Date Type Department Care Team (Late st Contact Info) Description 11/26/2015 6:23 AM BUNCHER MACHINE - 11/28/2015 11:35 AM BUNCHER MACHINE Hospital Encounter [facility] [address] [place] [address] Ladi Toscano MD NO ADDRESS ON FILE Janeth Kirkland DO [address] [place] [address] Ade Ballesteros MD [address] [facility] [address] [place] [address] Fever Discharge Disposition: Home or Self Care Social [...] Sign Reading Time Taken Comments Blood Pressure 108/62 11/28/2015 9:19 AM BUNCHER MACHINE Pulse 62 11/28/2015 9:19 AM BUNCHER MACHINE Temperature 36.4 ??C (97.5 ??F) 11/28/2015 9:19 AM CS T Respiratory Rate 18 11/28/2015 9:19 AM BUNCHER MACHINE Oxygen Saturation 100% 11/28/2015 9:19 AM BUNCHER MACHINE Inhaled Oxygen Concentration - - Weight 75.8 kg (167 lb) 11/27/2015 10:38 PM BUNCHER MACHINE Height 167.6 cm (5' 6 ) 11/27/2015 10:38 PM BUNCHER MACHINE Body Mass Index 26.95 11/27/2015 10:38 PM BUNCHER MACHINE documented in this encounter Discharge Summaries * Vinicio Hines DO - 11/28/2015 11:09 AM CST [facility] Adult Discharge Summary Ilan Mccauley 75 y.o. male 1940 CSN: [id number] Date of Admission: 11/26/2015 Date of Discharge: 11/28/2015 Discharging Physician: Vinicio Hines DO LOS: 2 days PCP: Ilan Whitley DO Activity: activity as tolerated. Dispo: home Diet: Regular diet Code Status at Discharge: FULL Wound Care: None needed 45 Minutes spent in the d/c process today. Admitting Dx and Chief Complaint Fever Discharge Diagnoses and Relevant Hospital Course: Principal Problem: Fever Active Problems: HTN (hypertension) Personal history of prostate cancer Overview: s/p removal Leukocytosis ARF (acute renal failure) Hyponatremia Severe sepsis E-coli UTI Anemia, chronic disease Complicated UTI (urinary tract infection) Complex renal cyst Overview: Follow up recommended 05/2016 75 y.o. male with PMHx of prostate CA s/p prostatectomy, HTN admitted with 7d of high fevers at home found to have ARF on labs at OSH. Complicated UTI due to pansensitive E. coli, POA:?? Treated with IV rocephin in hospital. To complete 14d total course as OP with po Ceftin until 12/09/15. Severe Sepsis, resolved:?? Criteria met included elevated WBC and fever, end organ is ARF Fever:?? afebrile during entire admission.?? Most likely due to above.? ARF, resolved:?? Admitted with Cr 1.68. Baseline Cr 0.7.?? FeNa 0.17%, consistent with dehydration.?? Renal US without obstruction.?? Resolved with IVFs overnight Hyponatremia:?? Resolved with IVFs. Anemia:?? Unclear time frame.?? Last level in 2012 was 14.?? Iron studies consistent with chronic disease, B12 normal. R Complex renal cyst:?? Seen on renal US. Follow up recommended in six months HTN:?? restart CATERPILLAR MECHANIC irbesartan. H/o prostate CA:?? S/p prostatectomy, recent PSAs normal. Discharge medications and new prescriptions: Medication List START taking these medications cefUROXime axetil 250 mg tablet Commonly known as: CEFTIN Take 1 Tablet (250 mg) by mouth every 12 hours for 10 days. Start taking on: 11/29/2015 Signed by: Vinicio Hines Quantity: 20 Tablet Refills: 0 CONTINUE taking these medications COQ10 SG 100 ORAL Take by mouth. Refills: 0 irbesartan 150 mg tablet Commonly known as: AVAPRO Take 150 mg by mouth daily. Refills: 0 metFORMIN 500 mg Extended Release 24 hour tablet Commonly known as: GLUCOPHAGE XR Take 500 mg by mouth daily with breakfast. Refills: 0 tamsulosin 0.4 mg capsule Commonly known as: FLOMAX Take 0.4 mg by mouth daily. Refills: 0 Where to Get Your Medications Information on where to get these meds is not yet available. Ask your nurse or doctor. - cefUROXime axetil 250 mg tablet Consultants: IP CONSULT TO CASE MANAGEMENT IP CONSULT TO NUTRITION SERVICES IP CONSULT TO CASE MANAGEMENT Brief Synopsis of Diagnostic Studies This Admission (Please see full report for details): CXR: no active disease Renal US: Multiple transverse, longitudinal and oblique images of the kidneys and bladder were obtained.?? The right kidney measures 12.4 cm longitudinally. In the mid right kidney there is a cyst measuring 1.5 x 1 x 1.3 cm with a wall calcification measuring 4 mm. Followup ultrasound in 6 months is recommended. The left kidney measures 11.8 cm longitudinally.? Both kidneys are mildly echogenic consistent with medical renal disease. There is no evidence of hydronephrosis. Labs and Studies from this Hospitalization Needing Follow Up: ?? None Discharge Lab Data (Please note date of lab as some may have preceeded admission) Lab Results Component Value Date/Time WBC 11.1* 11/28/2015 05:45 AM HEMOGLOBIN 9.5* 11/28/2015 05:45 AM HEMATOCRIT 28.5* 11/28/2015 05:45 AM PLATELETS 428* 11/28/2015 05:45 AM SODIUM 139 11/28/2015 05:45 AM CHLORIDE 107 11/28/2015 05:45 AM POTASSIUM 4.3 11/28/2015 05:45 AM CO2 19* 11/28/2015 05:45 AM BUN 8 11/28/2015 05:45 AM CREATININE 0.79 11/28/2015 05:45 AM GLUCOSE 88 11/28/2015 05:45 AM AST 27 11/26/2015 08:20 AM ALT 25 11/26/2015 08:20 AM CRP 230.2* 11/26/2015 08:20 AM Discharge Exam: BP 108/62 mmHg Pulse 62 Temp(Src) 97.5 ??F (36.4 ??C) (Oral) Resp 18 Ht 5' 6 (1.676 m) Wt 75.751 kg (167 lb) BMI 26.97 kg/m2 SpO2 100% Last documented weight: Weight: 75.751 kg (167 lb) (11/27/158) Physical Exam: General alert, cooperative, no distress, appears stated age Lungs clear to auscultation bilaterally Heart regular rate and rhythm, S1, S2 normal, no murmur, click, rub or gallop Abdomen soft, non-tender, without masses or organomegaly Extremities Normal, no edema Skin Skin color, texture, turgor normal. No rashes or lesions Discharge Condition: improved to baseline. Follow-up: You must follow up with Ilan Whitley DO in NO MORE THAN 7 DAYS Signed: Vinicio Hines DO 11/28/2015, 11:15 AM HER MACHINE Associated attestation - Ade Ballesteros MD - 11/28/2015 6:51 PM BUNCHER MACHINE [facility] Adult Hospitalist Attending Note ? Patient seen and examined.?? Case discussed with the resident 11/28/2015.?? I have reviewed the noteas entered and agree with the assessment and plan with any exceptions, if any, noted below.?? I also performed the critical or menezes portion(s) of the service as documented below, and was directly involved in the management of the patient. ?? Exam: General: NAD Chest: CTAB CV:?? RRR no mrg Abd: soft, nt/nd+BS Ext: no edema ?? Data Review: I have reviewed today's labs if any. ?? Assessment/Plan:?? 1.?? Severe sepsis 2/2 UTI, e.coli - DC on PO abx, farmer-sensitive e.coli ? Approx 35?? min were spent in the care of this patient today; this may?? include family conference,nursing conference and discussion with any consultants.? Ade [facility]esteros MD [facility] this encounter Discharge Instructions * Discharge Instructions* Vinicio Hines DO - 11/28/2015 11:09 AM BUNCHER MACHINE Your discharging physician is Ade Ballesteros MD and may be reached at [phone] for any questions or concerns until you see your doctor. FOLLOW-UP Follow up with Ilan Whitley DO in 1 week(s). Prescriptions given? Yes Take Ceftin 250mg twice daily until pills run out. SIGNS AND SYMPTOMS TO REPORT Contact your health care provider if you experience any of the following symptoms: increased dizziness or lightheadedness, shortness of breath or difficulty breathing, temperature greater than 101 orunable to keep food or fluids down or any other concerning symptoms. Heart Patients: Weigh yourself everyday at the same time, with the same amount of clothing and after you have emptied your bladder. Keep a log of your daily weights and bring them with you to your physician appointments. Call your physician (*) if you have a weight gain of 3 pounds in one day (or 5pounds in 2+ days) or (*) if you have increased shortness of breath or (*) if you have swelling in your feet, belly or legs. <<<Call 911 or go to the nearest emergency room if you have increased shortness of breath or chest pain or discomfort that is not relieved by nitroglycerin. Smoking Exposure: [facility] encourages all patients to decrease risks associated with smoking and second hand smoke exposure. If you smoke you are advised to quit. Ask your health care provider for advice if you need assistance to stop smoking. Avoid second-hand smoke exposure and do not let people smoke in your home. Please call [phone], our pulmonary rehabilitation department, to learn more about options to reduce your risks. ACTIVITY Your activity level is: increase activity as tolerated and no smoking. DIET Your diet is: regular WOUND CARE For your wound/incision: n/a. HER MACHINE documented in this encounter Medications at Time of Discharge Medication Sig Dispensed Refills Start Date End Date cefUROXime axetil (CEFTIN) 250 mg tablet Take 1 Tablet (250 mg) by mouth every 12 hours for 10 days. 20 Tablet 0 11/29/2015 12/09/2015 documented as of this encounter Progress Notes * Zenon Roland DO - 11/28/2015 12:39 AM CST Cross cover med 0042 - Notified by RN that patient's BP continues to increase. It has been consistently been SBP >130 since 2231, with last recording 148/69. Patient is adamant that his irbesartan 150mg be given to him, as he has had issues in the past with it being held, then his BP goes out of control. -ordered CATERPILLAR MECHANIC irbesartan 150mg daily, dose now HER MACHINE * Ruthann Cunningham RN - 11/27/2015 11:26 PM CST 2229 Patient transferred to Med/Surg with all possessions. HER MACHINE * Sailaja Modi, Occupational Therapist - 11/27/2015 2:56 PM CST OT attempt. Patient requests OT DC. Patient states I am independent and active. And I don't want to waste your time. I am fine. patient states low endurance due to in bed and extended illiness, butpatient states not concerned and feels like he will function as usual (apart from walking 8 miles...). Educated on energy conservation and increasing endurance safely. Will DC OT at this time. pleasecontact with questions or if status changes. Thank you. HER MACHINE * Vinicio Hines DO - 11/27/2015 1:49 PM CST [facility] Adult Progress Note Admit Date: 11/26/2015 Date of Note: 11/27/2015, 1:50 PM LOS: 1 day Plan Active Problems: Principal Problem: Fever Active Problems: HTN (hypertension) Personal history of prostate cancer Overview: s/p removal Leukocytosis ARF (acute renal failure) Hyponatremia Severe sepsis E-coli UTI Anemia, chronic disease Complicated UTI (urinary tract infection) Complicated UTI due to E. coli, POA:?? Continue IV Rocephin. Awaiting sensitivities. Severe Sepsis, improving:?? Criteria met include elevated WBC and fever, end organ is ARF Fever:?? afebrile here. Most likely due to above. ARF, resolved:?? Baseline Cr 0.7.?? FeNa 0.17%, consistent with dehydration.?? Renal US without obstruction. Resolved with IVFs overnight Hyponatremia:?? Resolved with IVFs. Anemia:?? Unclear time frame.?? Last level in 2011 was 14.?? Iron studies consistent with chronic disease, B12 normal. R Complex renal cyst:?? Follow up recommended in six months Chronic/Stable/Resolved Problems: HTN:?? Holding CATERPILLAR MECHANIC irbesartan. H/o prostate CA:?? S/p prostatectomy, recent PSAs normal. Quality/Safety/Core Measures/Disposition Planning: DVT Prophylaxis - Heparin PT/OT:yes Carmen catheter:absent Current Code Status -Full Code Plan discussed with patient and spouse, questions answered. Current Planned Disposition - Dispo: home pending sensitivities, likely tomorrow am. Subjective Previous history of present illness and review of systems have been reviewed today as documented inthe H&P on 11/26/2015; medications, labs, studies, notes, orders and consults have been reviewed. I have reviewed the notes from admission. Overnight patient slept well, this am has no complaints. Objective BP 103/54 mmHg Pulse 73 Temp(Src) 97.7 ??F (36.5 ??C) (Oral) Resp 12 Ht 5' 6 (1.676 m) Wt 75.342 kg (166 lb 1.6 oz) BMI 26.82 kg/m2 SpO2 96% Temp (24hrs), Av.8 ??F (36.6 ??C), Min:97.4 ??F (36.3 ??C), Max:98.3 ??F (36.8 ??C) Exam: Gen alert, cooperative, no distress, appears stated age Lungs clear to auscultation bilaterally Heart regular rate and rhythm, S1, S2 normal, no murmur, click, rub or gallop Abdomen soft, non-tender. Bowel sounds normal. No masses, No organomegaly Extremities extremities normal, atraumatic, no cyanosis or edema Mental Status A&Ox3 Data: I have reviewed all new labs and studies resulted and pertinent ones are noted below More than 30 minutes were spent in the care of this patient today; more than 50% was spent in discussion of expected course of disease, discussion of prognosis, discharge planning, coordination of care and discussion of lab and test results. Vinicio Hines DO HER MACHINE Associated attestation - Ade Ballesteros MD - 11/27/2015 4:51 PM BUNCHER MACHINE [facility] Adult Hospitalist Attending Note Patient seen and examined. Case discussed with the resident 11/27/2015. I have reviewed the note as entered and agree with the assessment and plan with any exceptions, if any, noted below. I also performed the critical or menezes portion(s) of the service as documented below, and was directly involved in the management of the patient. Exam: General: NAD Chest: CTAB CV: RRR no mrg Abd: soft, nt/nd+BS Ext: no edema Data Review: I have reviewed today's labs if any. Assessment/Plan: 1. Severe sepsis 2/2 UTI, e.coli - Continue IV rocephin, await sensitivities Approx 35 min were spent in the care of this patient today; this may include family conference, nursing conference and discussion with any consultants. Ade Ballesteros MD [facility] Hospitalist * Ricardo Dial - 11/27/2015 1:11 PM CST [facility] Adult Progress Note Admit Date: 11/26/2015 Date of Note: 11/27/2015, 1:11 PM LOS: 1 day Plan Active Problems: Principal Problem: Severe Sepsis- criteria with elevated WBC, temp, ARF-improving, likely 2/2 to UTI vs Prolonged Viral infection,Ur Cx-ecoli, awaiting sensitivity on Rocephin Day 1-on sepsis pathway. Blood Cx sent x 2-negative for growth day CRP-230, Lactic acid 1.0, ESR-77, WBC trending down from 26 to 12, will continue to monitor. ??Hyponatremia- likely 2/2 to hypovolemia/dehydration, resolved, sodium normalized, Fluids D/C, will continue to monitor. Diet is advanced and patient is tolerating well. Urine Osm, Serum Osm and Ur cr pending all WNL ARF- baseline cr .75, improving, will recheck and continue to monitor, likely 2/2 to dehydration/sepsis status, RU negative for obstruction, positive for R renal cyst Fever: eitology unclear. UTI vs PNA vs Malignancy recurrence vs Proviral Prolonged prodrome. Afebrile presently will continue to monitor Anemia- baseline unsure, last known value 14(2011)presently 10,iron studies ordered, appears chronic, will transfuse once HGB<7. Possible long standing symptoms for anemia. Discussed outpatient follow up with primary. No evidence of bleeding, stable HGB presently. Elevated isolated Alk Phos- likely obstructive vs bone etiology.?? Will check and trend. Haptoglobin, LDH ordered UTI 2/2 to Ecoli-on rocephin, will switch pending sensitivities for Ecoli. R Complex Renal Cyst-F/Up recommended OP in 6 months ?? Chronic/Stable/Resolved Problems: HTN (hypertension)-ibesartan-holding parameters given soft blood pressures ?? Personal history of prostate cancer ? Overview: s/p removal-stable, will continue to monitor, recent psa-wnl Quality/Safety/Core Measures/Disposition Planning: DVT Prophylaxis - heparin PT/OT:yes Carmen catheter:present. Current Code Status -Full Code Plan discussed with spouse and patient, questions answered. Current Planned Disposition - Dispo: stable, possible transfer to medical floors Subjective Previous history of present illness and review of systems have been reviewed today as documented inthe H&P on 11/26/2015; medications, labs, studies, notes, orders and consults have been reviewed. I have reviewed the notes from yesterday. Overnight : Patient did well, afebrile, tolerating diet. Objective BP 103/54 mmHg Pulse 73 Temp(Src) 97.7 ??F (36.5 ??C) (Oral) Resp 12 Ht 5' 6 (1.676 m) Wt 75.342 kg (166 lb 1.6 oz) BMI 26.82 kg/m2 SpO2 96% Temp (24hrs), Av.8 ??F (36.6 ??C), Min:97.4 ??F (36.3 ??C), Max:98.3 ??F (36.8 ??C) Exam: Gen alert, cooperative, no distress, appears stated age Lungs clear to auscultation bilaterally Heart Regular rate and rhythm, S1, S2 normal, murmur in pulmonic area, click, rub or gallop Abdomen soft, non-tender. Bowel sounds normal. No masses, No organomegaly Extremities extremities normal, atraumatic, no cyanosis or edema Data: I have reviewed all new labs and studies resulted and pertinent ones are noted below More than 40 mins were spent in the care of this patient today; more than 50% was spent in discussion of coordination of care and assessment and plan. Ricardo Dial HER MACHINE Associated attestation - Vinicio Hines DO - 11/27/2015 1:49 PM BUNCHER MACHINE I have reviewed this externs note. Please see my separate note from the same day. Thank you. * Jimi Alcazar, Physical Therapist - 11/27/2015 9:04 AM CST Physical Therapy order received, chart reviewed, and evaluation completed. Please see full evaluation below for details. Daily PT notes will be located in Care Plan notes. Thank You. PT INITIAL EVALUATION Diagnosis: Fever MD: Isael Activity Order: As tolerated Weight Bearing Status: None listed Precautions: fall PMH: BPH, ED, renal artery stenosis, HLD, HTN, prostate cancer S: Patient reports 0/10 pain. Pain intervention: No intervention required Response to pain intervention: Appeared content Living Situation/Functional Level CATERPILLAR MECHANIC: Patient lives with his in a 1 level house with 2 steps to enter. At baseline he is independent and very active walking multiple miles daily. Ambulates without an assistive device. Home Equipment: None noted O: Appearance: White male supine in bed answering all questions when prompted Cognition/Perception: Alert and oriented x 4 ROM: Bilateral Lower Extremity WFL Muscle Tone: WFL Strength: Bilateral Lower Extremity WFL Sensation: WNL MOBILITY ASSESSMENT: Bed Mobility: Independent with all bed mobility Transfers: Independent with all transfers Gait: 600' without device with independence --Gait Deviations: none Balance: Good with sitting and standing, static and dyanmic Stairs/Curb: Patient voices no concerns at this time even stating stairs are our friends in reference to being in good shape Patient/Family Education: PT plan of care Other: Patient d/c from PT at this time as he is independent with all mobility Positioning after tx: Seated up in bed side chair with chair alarm in place, call light in reach, resting quietly. P: Patient d/c from PT at this time as he is independent with all mobility and functional as his baseline. Recommend home to prior set up. --Patient involved in goal setting: yes Patient goals will be found in the Care Plan section of the medical chart. Zone #: [id number] HER MACHINE * Jaelyn Arora RN - 11/26/2015 6:58 AM CST Undress and Assess performed by: Zulema AZUL and Nereyda PCT Patient does not have skin breakdown. Wound care consult was not initiated. Always reconsult Wound Care for change or deterioration of wounds. Patient arrived to this room with the following belongings/valuables: All Jewelry removed from patient N/A Disposition of belongings/valuables: In room. HER MACHINE documented in this encounter H&P Notes * Jayro Ricardo - 11/26/2015 1:53 PM CST [facility] Internal Medicine Teaching Service History & Physical Ricardo Dial 11/26/2015 1:53 PM Patient Name: Ilan Mccauley Admit Date: 11/26/2015 Supervising Resident: PCP: Ilan Whitley DO Subjective: CC: Sepsis HPI: Ilan Mccauley is a 75 y.o. male direct admit from [facility] with complaints of cyclic fevers ranging from 100-104, increasing weakness, lack of appetite With poor oral intake x 1 week.He has had associated symptoms of chills,sweats but denies N/V, diarrhea. He denies any cough, chest pain or associated SOB. No hemoptysis. Reports no changes in stool habits or any blood in stools or urine. He received 5 days of Tamiflu per primary,no swab was done at that time. Has received a flu vaccine. At OSH his wbc was 26,000 and cr 1.98. He lives in [place] and here in [facility] with his . Only sick contact he says was exposure when he visited his regulatory assistant 10 days ago.Denies any weight loss symptoms in recent days or months. He has a past medical history significant for prostate ca(2011) s/p prostatectomy-on flomax, HTN-ibesartan, Chronic Bronchitis. He had a colonoscopy (2011) which was negative. Also, he reports about 10 days ago, he suffered A first time episode of syncope x 2. There was a 20-30 sec LOC. He states he was on the stool in the bathroom when he lost consciousness and fell offx 2 within minutes of each other. He denies any syncope since. He did visit his Territory Sales Manager [employer] who felt these episodes were possibly due to bouts of hypotension being caused by the Ibesartan. He was tofollow up with his doctor with measured readings he failed to do because he was ill. PMHx: Past Medical History Diagnosis Date ??? BPH (benign prostatic hyperplasia) ??? Erectile dysfunction ??? Allergic rhinitis ??? Family history of prostate cancer m gf ??? Renal artery stenosis 06/12 mild on R ??? HTN (hypertension) 2009 ??? Hyperlipidemia diet controlled ??? Calculus of kidney currently found through cat scan ??? Personal history of prostate cancer 06/13 s/p removal PSurgHx: Past Surgical History Procedure Laterality Date ??? Chg colonoscopy,biopsy 2007 polyps ??? Stress echo w contrast 06/12 wnl ??? Us renal + doppler 06/12 R renal art stenosis L ok ??? Holter monitor wnl ??? Chg colonoscopy,biopsy 09/12 wnl, no polyps. tics ??? Biopsy prostate 06/13 cancer ??? Hx appendectomy age 14 ??? Pr lap,prostatectomy,radical,w/nerve spare,incl robotic 07/20/2012 PROSTATECTOMY RADICAL DAVINCI SI LAPAROSCOPIC performed by Giancarlo Azar MD at [facility] OR [facility] ??? Pr lap,lymphatic system,other proc 07/20/2012 LYMPH NODE DISSECTION DAVINCI SI LAPAROSCOPIC performed by Giancarlo Azar MD at [facility] Vaccinations:Influenza: as an adult Medications: Medication List CONTINUE taking these medications COQ10 SG 100 ORAL Take by mouth. Refills: 0 irbesartan 150 mg tablet Commonly known as: AVAPRO Take 150 mg by mouth daily. Refills: 0 metFORMIN 500 mg Extended Release 24 hour tablet Commonly known as: GLUCOPHAGE XR Take 500 mg by mouth daily with breakfast. Refills: 0 tamsulosin 0.4 mg capsule Commonly known as: FLOMAX Take 0.4 mg by mouth daily. Refills: 0 Allergies: Allergies Allergen Reactions ??? Codeine Nausea and Vomiting Makes patient extremely ill ??? Bystolic [Nebivolol] Bradycardia FHx: family history includes Cancer in his maternal grandfather; Heart Disease in his maternal grandmother; Hypertension in his mother; Stroke in his mother; Unknown in his father. SHx: reports that he quit smoking about 48 years ago. He has never used smokeless tobacco. He reports that he does not drink alcohol or use illicit drugs. Review of Systems: History from The patient General Positive-chills, fevers, night sweats ENT Negative for congestion, drainage or bleeding, sore throat Heme/Lymph Negative for swollen glands Endocrine Negative for polyuria/polydipsia CV Negative for chest pain or SOB Respiratory Negative for cough, wheezing GI Negative for diarrhea, n, v or blood loss, melena, hematochezia No urinary symptoms, no bleeding or dysuria MS Negative for back pain, joint pain or swelling Neuro Alert oriented Derm Negative for skin rashes Objective: Initial Vitals BP 11/26/15 0537 105/64 mmHg Pulse 11/26/15 0537 61 Resp 11/26/15 0537 16 Temp 11/26/15 0537 95.1 ??F (35.1 ??C) Temp src 11/26/15 0537 Oral SpO2 11/26/15 0537 100 % BP 103/54 mmHg Pulse 60 Temp(Src) 97.3 ??F (36.3 ??C) (Axillary) Resp 17 Ht 5' 6 (1.676 m) Wt 75.342 kg (166 lb 1.6 oz) BMI 26.82 kg/m2 SpO2 100% Orthostatics: not done General appearance alert, cooperative, no distress, appears stated age Head Normocephalic, without obvious abnormality, atraumatic Eyes Conjunctivae/corneas clear. EOM's intact. Ears Normal external exam. Hearing grossly intact. TMs clear bilaterally. Nose Nares normal. Septum midline. Mucosa normal. No drainage or sinus tenderness. Throat Lips, mucosa, and tongue normal. Teeth and gums normal Neck Supple, symmetrical, trachea midline, no adenopathy, thyroid: not enlarged, symmetric, no tenderness/mass/nodules, no carotid bruit and no JVD Back ROM normal. No tenderness Lungs CTA B/L Chest wall No tenderness Heart Regular rate and rhythm no murmur , rubs or gallops Abdomen Soft, non tender Extremities Fingers/toes cold, atraumatic Pulses {peripheral pulses: B/L and symmetric Skin Pale no rashes or lesions Lymph nodes Cervical, supraclavicular, and axillary nodes normal. Neurologic AOx3. Gait normal. Reflexes and motor strength normal and symmetric. Cranial nerves 2-12and sensation grossly intact. Summary of Pertinent Labs/Radiology/EKG: CXR abnormalities: ( 11/26)Old granulomatous disease, no active disease Assessment and Plan: Principal Problem: Severe Sepsis-WBC, temp, ARF-improving, cause UTI, on Rocephin Day 1-on sepsis pathway. Blood Cx sent x 2, U/A with reflex, CXR-negative, RSV PCR, CRP, recheck CXR if fevers continue to spike and addazithromycin CBC, Lactic acid, sed rate pending Hyponatremia- likely 2/2 to hypovolemia/dehydration, will continue 125 cc NS. Urine Osm, Serum Osm and Ur cr pending, will recheck CMP ARF- baseline cr .75, will recheck and continue to monitor, likely 2/2 to dehydration/sepsis status, RU w/o Obstruction Fever: eitology unclear. UTI vs PNA vs Malignancy recurrence vs Proviral Prolonged prodrome Anemia- baseline unsure, last known value 14(2011)presently 10,iron studies ordered, appears chronic, will transfuse once HGB<7 Elevated isolated Alk Phos- likely obstructive vs bone etiology. Will check and trend. Haptoglobin,LDH ordered UTI-on rocephin R Complex Renal Cyst-F/Up recommended OP in 6 months Chronic Stable problems HTN (hypertension)-ibesartan-holding parameters given soft blood pressures Personal history of prostate cancer Overview: s/p removal-stable, will continue to monitor, recent psa-wnl DVT PRX:Heparin Indwelling Lines/Devices: N/A Family Communication: spoke with patient Code Status: Full Current Planned Disposition - once stable will consider transfer to medical floors in about 1-2 days time I discussed the assessment of plan for the above patient with Dr. Hines/Dr. Arvind Dial HER MACHINE Associated attestation - Vinicio Hines DO - 11/26/2015 2:57 PM BUNCHER MACHINE I have reviewed this externs note. Please see my separate note from the same day. Thank you. * Vinicio Hines DO - 11/26/2015 8:11 AM CST [facility] Internal Medicine Teaching Service History & Physical Vinicio Hines DO 11/26/2015 11:35 AM Patient Name: Ilan Mccauley Admit Date: 11/26/2015 PCP: Ilan Whitley, DO Subjective: CC: Fever HPI: Ilan Mccauley is a 75 y.o. male direct admission from [facility] ER with PMHx of HTN, protate cancer s/p surgical resection that presents with fever. He states he felt like he came down with influenza 1 week ago, he had high fevers and chills and was treated with Tamiflu, which he has competed. He states he had temps >104 at home during this time. He has had markedly decreasedappetite and been sleeping most of the days. He denies cough, sinus pain, constipation, diarrhea, dysuria, abdominal pain, neck pain. He had recent colonoscopy in 2011 that was normal. He reports that 8 days ago had syncopal episode at home after BM and fell. He had appt with regulatory assistant after this and was told it was likely from low BP and he should monitor closer at home, which he did not do. At OSH ER his WBC was 26,000 and had Cr 1.98. PMHx: Past Medical History Diagnosis Date ??? BPH (benign prostatic hyperplasia) ??? Erectile dysfunction ??? Allergic rhinitis ??? Family history of prostate cancer m gf ??? Renal artery stenosis 06/12 mild on R ??? HTN (hypertension) 2009 ??? Hyperlipidemia diet controlled ??? Calculus of kidney currently found through cat scan ??? Personal history of prostate cancer 06/13 s/p removal PSurgHx: Past Surgical History Procedure Laterality Date ??? Chg colonoscopy,biopsy 2007 polyps ??? Stress echo w contrast 06/12 wnl ??? Us renal + doppler 06/12 R renal art stenosis L ok ??? Holter monitor wnl ??? Chg colonoscopy,biopsy 09/12 wnl, no polyps. tics ??? Biopsy prostate 06/13 cancer ??? Hx appendectomy age 14 ??? Pr lap,prostatectomy,radical,w/nerve spare,incl robotic 07/20/2012 PROSTATECTOMY RADICAL DAVINCI SI LAPAROSCOPIC performed by Giancarlo Azar MD at [facility] OR [facility] ??? Pr lap,lymphatic system,other proc 07/20/2012 LYMPH NODE DISSECTION DAVINCI SI LAPAROSCOPIC performed by Giancarlo Azar MD at [facility] OR [facility] Medications: Medication List CONTINUE taking these medications COQ10 SG 100 ORAL Take by mouth. Refills: 0 irbesartan 150 mg tablet Commonly known as: AVAPRO Take 150 mg by mouth daily. Refills: 0 metFORMIN 500 mg Extended Release 24 hour tablet Commonly known as: GLUCOPHAGE XR Take 500 mg by mouth daily with breakfast. Refills: 0 tamsulosin 0.4 mg capsule Commonly known as: FLOMAX Take 0.4 mg by mouth daily. Refills: 0 Allergies: Allergies Allergen Reactions ??? Codeine Nausea and Vomiting Makes patient extremely ill ??? Bystolic [Nebivolol] Bradycardia FHx: family history includes Cancer in his maternal grandfather; Heart Disease in his maternal grandmother; Hypertension in his mother; Stroke in his mother; Unknown in his father. SHx: reports that he quit smoking about 48 years ago. He has never used smokeless tobacco. He reports that he does not drink alcohol or use illicit drugs. Review of Systems: History from the patient General positive for - chills, fever and night sweats ENT negative for nasal congestion, drainage or bleeding, sore throat, dysphagia or ear pain Heme/Lymph negative for swollen glands or abnormal bleeding Endocrine negative for polyuria/polydipsia or new changes in weight CV negative for chest pain or dyspnea on exertion Respiratory negative for cough, shortness of breath, or wheezing GI negative for reflux, abdominal pain, change in bowel habits, or black or bloody stools negative for dysuria, trouble voiding, or hematuria MS negative for back pain, neck pain or joint pain or swelling Neuro negative for TIA or stroke symptoms Derm negative for skin rashes or unusual skin lesions Objective: Initial Vitals BP 11/26/15 0537 105/64 mmHg Pulse 11/26/15 0537 61 Resp 11/26/15 0537 16 Temp 11/26/15 0537 95.1 ??F (35.1 ??C) Temp src 11/26/15 0537 Oral SpO2 11/26/15 0537 100 % BP 106/57 mmHg Pulse 61 Temp(Src) 97.6 ??F (36.4 ??C) (Oral) Resp 16 Ht 5' 6 (1.676 m) Wt 75.342 kg (166 lb 1.6 oz) BMI 26.82 kg/m2 SpO2 99% Orthostatics: not done General appearance alert, cooperative, no distress, appears stated age Head Normocephalic, without obvious abnormality, atraumatic Eyes Conjunctivae/corneas clear. PERRL, EOM's intact. Ears Normal external exam. Hearing grossly intact. TMs clear bilaterally. Nose Nares normal. Septum midline. Mucosa normal. No drainage or sinus tenderness. Throat Lips, mucosa, and tongue normal. Teeth and gums normal Neck Supple, symmetrical, trachea midline, no adenopathy, thyroid: not enlarged, symmetric, no tenderness/mass/nodules, no carotid bruit and no JVD Back ROM normal. No tenderness Lungs clear to auscultation bilaterally Chest wall No tenderness Heart regular rate and rhythm, S1, S2 normal, no murmur. No rub or gallop. Abdomen soft, non-tender, without masses or organomegaly LAUNDRY TECH deferred or not applicable Extremities Normal, no edema, no splinter hemmhorages Pulses peripheral pulses symmetrical Skin Skin color, texture, turgor normal. No rashes or lesions Lymph nodes Cervical, supraclavicular, and axillary nodes normal. Neurologic A&Ox3, non-focal. Rectal deferred Summary of Pertinent Labs/Radiology/EKG: Lab Results Component Value Date/Time WBC 20.6* 11/26/2015 08:20 AM HGB 9.7* 11/26/2015 08:20 AM HCT 28.2* 11/26/2015 08:20 AM PLT 297 11/26/2015 08:20 AM MCV 93.1 11/26/2015 08:20 AM Lab Results Component Value Date/Time NA 128* 11/26/2015 08:20 AM K 4.0 11/26/2015 08:20 AM CL 93* 11/26/2015 08:20 AM CO2 19* 11/26/2015 08:20 AM CA 7.3* 11/26/2015 08:20 AM BUN 25* 11/26/2015 08:20 AM CREAT 1.67* 11/26/2015 08:20 AM GLUCOSE 85 11/26/2015 08:20 AM TOTALPROTEIN 5.6* 11/26/2015 08:20 AM ALBUMIN 2.9* 11/26/2015 08:20 AM BILITOTAL 0.2 11/26/2015 08:20 AM ALKPHOS 155* 11/26/2015 08:20 AM AST 27 11/26/2015 08:20 AM ALT 25 11/26/2015 08:20 AM ANIONGAP 16 11/26/2015 08:20 AM Lactic: 1 CRP: 230 ESR: 77 B12 902 Assessment and Plan: Principal Problem: Fever Active Problems: HTN (hypertension) Personal history of prostate cancer Overview: s/p removal Leukocytosis ARF (acute renal failure) Hyponatremia Severe sepsis Severe Sepsis: Criteria met include elevated WBC and fever, end organ is ARF. Source urine. UTI, POA: Started on Rocephin, uti pathway. Culture pending. Fever: Broad differential: Prolonged viral syndrome, PNA, uti, ?endocarditis. Blood cultures pending. Respiratory viral PCR negative. Influenza negative at OSH. Monitor fever curve, if continues to spike, consider repeat CXR to check for pna and add azithromycin. ARF: Baseline Cr 0.7. FeNa 0.17%, consistent with dehydration. Renal US without obstruction Hyponatremia: Suspect due to dehydration. Continue IVFs and recheck tomorrow. Anemia: Unclear time frame. Last level in 2011 was 14. Iron studies consistent with chronic disease, B12 normal. HTN: Hold [employer] irbesartan. H/o prostate CA: S/p prostatectomy, recent PSAs normal. R Complex renal cyst: Follow up recommended in six months DVT PRX:Heparin Indwelling Lines/Devices: PIV Family Communication: with patient. Code Status: FULL CODE Current Planned Disposition - home once clinically improved which I anticipate will be in 2-3 days I discussed the assessment of plan for the above patient with Dr. Isael Hines DO HER MACHINE Associated attestation - Janeth Kirkland DO - 11/26/2015 3:19 PM BUNCHER MACHINE [facility] Adult Hospitalist Attending Note Patient seen and examined. Case discussed with the Resident team on 11/26/2015. I have reviewed the note as entered and agree with the assessment and plan with any exceptions, if any, noted below. I also performed the critical or menezes portion(s) of the service as documented below, and was directly involved in the management of the patient. BP 101/57 mmHg Pulse 67 Temp(Src) 97.4 ??F (36.3 ??C) (Oral) Resp 20 Ht 5' 6 (1.676 m) Wt 75.342 kg (166 lb 1.6 oz) BMI 26.82 kg/m2 SpO2 98% Body mass index is 26.82 kg/(m^2). Temp (24hrs), Av.9 ??F (36.1 ??C), Min:95.1 ??F (35.1 ??C), Max:97.6 ??F (36.4 ??C) Exam: General appearance alert, cooperative, no distress, appears stated age Lungs clear to auscultation bilaterally Heart regular rate and rhythm, S1, S2 normal, no murmur, click, rub or gallop Abdomen soft, non-tender. Bowel sounds normal. No masses, No organomegaly Extremities extremities normal, atraumatic, no cyanosis or edema Pulses 2+ and symmetric Data Review: I have reviewed today's labs if any. Assessment/Plan: 1. Severe Sepsis - suspected source at this time is Urine, criteria met is WBC and temp and EOD is ARF, will treat with IV rocephin, renal/bladder US wo obstruction, IVFS, monitor in TCU, likely can transfer out in am Approx 35 min were spent in the care of this patient today; this may include family conference, nursing conference and discussion with any consultants. Janeth Kirkland DO [facility] encounter Consult Notes * Reena Goldberg, RD - 11/26/2015 1:04 PM CSTAssociated Order(s): IP CONSULT TO NUTRITION SERVICES Images from the original note were not included. CLINICAL DIETITIAN PROGRESS NOTE [facility] Nutrition Consult: Sepsis A: Height: 5' 6 (167.6 cm) (11/26/15536) Weight: 75.342 kg (166 lb 1.6 oz) (11/26/15536) Body mass index is 26.82 kg/(m^2). IBW/kg (Calculated) Male: 63.8 kg (11/26/15536) Wt Readings from Last 3 Encounters: 11/26/15 75.342 kg (166 lb 1.6 oz) 07/20/12 69.854 kg (154 lb) 05/19/12 72.122 kg (159 lb) Last Bowel Movement (mm/dd/yyyy): 11/25/15 (per pt) (11/26/15 0800) Sridhar Score: 18 (11/26/15 0537) Skin:intact Lab Results Component Value Date/Time NA 128* 11/26/2015 08:20 AM K 4.0 11/26/2015 08:20 AM CL 93* 11/26/2015 08:20 AM BUN 25* 11/26/2015 08:20 AM CREAT 1.67* 11/26/2015 08:20 AM GLUCOSE 85 11/26/2015 08:20 AM CA 7.3* 11/26/2015 08:20 AM ALBUMIN 2.9* 11/26/2015 08:20 AM GFR 40 11/26/2015 08:20 AM No results found for: HGBA1C, [id number] Pert Meds:zofran PMH:BPH, ED, HTN, HLD, prostate cancer DIET GENERAL Effective Now PO:n/a ordered lunch. He didn't eat breakfast. Admitted with sepsis. UTI and flu like symptoms for 1 week. D: Inadequate oral intake r/t decreased appetite to consume sufficient energy as evidenced by 1 week I: Nutrition Intervention: Pt said appetite is usually good but for the past week d/t feeling sick his appetite has been poor. Discussed supplements and shakes. Pt agreed to order when appetite is poor. Food Allergies: No known food allergies M/E: 1. Continue to monitor nutrition, weight, lab values, and skin. 2. Follow up every 4 days and as needed. HER MACHINE documented in this encounter Miscellaneous Notes * Care Plan - Salome Denton RN - 11/28/2015 11:34 AM CST Ilan Mccauley will be discharged via ambulatory to home. Ilan Mccauley is accompanied by spouse and will be transported via private vehicle. All questions and concerns were addressed prior to discharge. HER MACHINE * Care Plan - Trisha Gurrola RN - 11/28/2015 8:49 AM CST Problem: General Plan of Care (Adult, Obstetrics) Goal: Plan of Care Review (Adult, Obstetrics) The patient and/or their sales representative womens health will communicate an understanding of their plan of care. Outcome: Progressing Patient transferred to floor from TCU. Blood pressure on arrival to floor 130/ 60-70's. Patient concerned that blood pressure is starting to increase and home blood pressure medication is still beingheld. 2245- [employer] pre need consultant paged per patient request about restarting blood pressure medication. 2248- Spoke with [employer] pre need consultant Zenon Roland regarding patient's concerns, wants to continue to hold medication for now and continue to monitor blood pressure closely. 225- Patient updated on plan after speaking with MD, patient still very concerned about blood pressure increasing. Call received from patient requesting to have blood pressure checked again, blood pressure now 148/69, p atient now requesting to see MD. 2335- MD paged, awaiting call back. 2353- MD paged again. 0012- Call back from covered [employer] pre need consultant Zenon Roland, made aware that patient is very upset and now isrequesting to see MD, states he will be up to see patient as soon as possible. 0042- MD at bedside to see patient, new orders received to restart home blood pressure medication. 0106- Blood pressure rechecked prior to giving medication, Blood Pressure now 111/ 62 patient now requesting to wait until am to take medication. 0534- Blood pressure this am 110/51, patient still requesting to wait to take blood pressure medication. HER MACHINE * Care Plan - Trisha Gurrola RN - 11/28/2015 8:36 AM CST Problem: General Plan of Care (Adult, Obstetrics) Goal: Individualization/Patient-Specific Goal (Adult, Obstetrics) The patient and/or their sales representative womens health will achieve their patient-specific goals related to the plan of care. The patient-specific goals include: treat infection. Outcome: Progressing HER MACHINE * Care Plan - Trisha Gurrola RN - 11/28/2015 8:36 AM CST Problem: Pressure Ulcer Risk or Treatment Goal: Prevent/Manage Potential Problems Maintain/improve skin integrity Outcome: Progressing Undress and Assess performed by: Janette Admission or upon transfer to: Patient does not have skin breakdown. Compare to last Wound Care Consult note, if applicable. Location of breakdown: Description of breakdown (including measurement): Wound care consult was not initiated. Always reconsult for change or deterioration of wounds. Patient arrived to this room with the following belongings/valuables: All Jewelry removed from patient none Disposition of belongings/valuables: Problem: General Plan of Care (Adult, Obstetrics) Goal: Plan of Care Review (Adult, Obstetrics) The patient and/or their sales representative womens health will communicate an understanding of their plan of care. Outcome: Progressing Goal: Identify Discharge Needs Patients discharge needs are identified. Outcome: Progressing Problem: Fall/Trauma/Injury Risk (Adult) Goal: Fall/Trauma/Injury Risk: Absence of Trauma/Injury/Falls Patient will demonstrate the desired outcomes. Outcome: Progressing Patient ambulating independently with a steady gait. Patient verbalizes understanding to call for assistance if needed. Problem: SIRS/Sepsis (Adult) Goal: Prevent/Manage Potential Problems Signs and symptoms of listed problems will be absent or manageable. Outcome: Progressing Problem: Infection, Risk/Actual (Adult) Goal: Infection, Risk/Actual: Infection Prevention/Resolution/Control Patient will demonstrate the desired outcomes. Outcome: Progressing Patient remains afebrile. HER MACHINE * Care Plan - Hodan Stafford RN - 11/27/2015 2:46 PM CST Pt has transfer orders to go to a medicine floor. Pt states he Feels much better . Pt has been tolerating all fluids. Patient has remained free from fall this shift. Pt has alarms on and audible. Patient has call button within reach, and instructed to press the button for assistance. Pt verbalizesunderstanding. Patient has room near nurses station, and safety checks are done q 1 hour. PW GEN: SKIN CARE PREVENTION: PRESSURE ULCER Pathway Day 1 ??? Skin/Integumentary: Patient maintains intact skin over bony prominences and under medical devices with Sridhar Score maintained or improved. Interventions initiated to maintain intact skin including evaluation for applicable dressings. Met ??? Nutrition Management: Patient and/or health care delegate verbalize understanding of adequate intake of protein (4 or more servings of meat and dairy products daily) and fluid. Met ? ? Bladder & Bowel Movement: Patient is continent of urine and/or stool or moisture managementfor incontinence. Met ??? Pain Management: Patient denies pain over bony prominences. Met ??? Activity/Rehab: Patient moves independently and performs activity as ordered or patient and/or health care delegate verbalizes understanding of repositioning or offloading techniques. Met ??? Patient Education: Patient and/or health care delegate verbalize understanding of pressure soreprevention interventions and received printed pressure sore educational handout. Met ??? Discharge Planning: Discharge needs identified with patient and/or healthcare delegate involvedin discharge planning. Met PW MED: SEPSIS, ADULT Pathway Day 2 ??? Hemodynamics: Temp greater than 96.8F (36C) or less than 100.9F (38.3C), HR less than 100/min, Resp less than or equal to 20/min., SBP greater than 90mmHg or MAP greater than or equal to 65mmHg. Met ??? Hemodynamics: Maintain adequate perfusion as evidence by urine output greater than or equal to 0.5 ml/kg/hr (or 120 ml every 4 hrs). Met ??? Activity/Rehab: Patient will be able to perform highest level of activity possible per physician orders within 24 hours. Met ??? Patient Education: Patient / health care delegate verbalizes understanding of current plan of care. Met ??? Discharge Planning: Patient or healthcare delegate is an active participant in discharge planning. Met PW MED: URINARY TRACT INFECTION, ADULT - ADMIT TO MED SURG Pathway Day 2 ? ? Hemodynamic: Temp </= 100.4F (38C), HR</=100/min, Resp </= 24/min, SBP >/=90mmHg Met ??? Pain Control: Patient reports improvement since arrival/admission Met ??? Fluid Management: Urine output equal to or greater than 30 mL/hour Met ??? Nutrition Management: Tolerating oral intake without nausea/vomiting. Met ??? Activity: Patient able to transfer or ambulate without physical assistance. If unable PT/OT evaluation completed. Met ??? Discharge Planning: Patient or health care delegate is an active participant in discharge planning. Met HER MACHINE * Care Plan - Jaelyn Arora RN - 11/27/2015 6:33 AM CST Patient remained free of falls and injury throughout shift. No pain stated. Vital signs stable. PW GEN: SKIN CARE PREVENTION: PRESSURE ULCER Pathway Day 1 ??? Skin/Integumentary: Patient maintains intact skin over bony prominences and under medical devices with Sridhar Score maintained or improved. Interventions initiated to maintain intact skin including evaluation for applicable dressings. Met ??? Nutrition Management: Patient and/or health care delegate verbalize understanding of adequate intake of protein (4 or more servings of meat and dairy products daily) and fluid. Met ? ? Bladder & Bowel Movement: Patient is continent of urine and/or stool or moisture managementfor incontinence. Met ??? Pain Management: Patient denies pain over bony prominences. Met ??? Activity/Rehab: Patient moves independently and performs activity as ordered or patient and/or health care delegate verbalizes understanding of repositioning or offloading techniques. Met ??? Patient Education: Patient and/or health care delegate verbalize understanding of pressure soreprevention interventions and received printed pressure sore educational handout. Met ??? Discharge Planning: Discharge needs identified with patient and/or healthcare delegate involvedin discharge planning. Met PW MED: SEPSIS, ADULT Pathway Day 1 ??? General: Patient received initial antibiotics within 3 hours of sepsis diagnosis. Met ??? General: Serum lactate level will normalize from elevated state for the return of improved tissue perfusion. Met ??? Hemodynamics: Temp greater than 96.8F (36C) or less than 100.9F (38.3C), HR less than 100/min, Resp less than or equal to 20/min., SBP greater than 90mmHg or MAP greater than or equal to 65mmHg. Met ??? Activity/Rehab: Patient will be able to perform highest level of activity possible per physician orders daily. Met ??? Patient Education: Patient / health care delegate verbalizes understanding of current plan of care. Met ??? Discharge Planning: Patient/Delegate have been included with identifying discharge needs and/oradmission screening assessments completed. Met PW MED: URINARY TRACT INFECTION, ADULT - ADMIT TO MED SURG Pathway Day 1 ? ? Hemodynamic: Temp </= 100.4F (38C), HR</=100/min, Resp </= 24/min, SBP >/=90mmHg Met ??? Pain Control: Patient reports improvement since arrival/admission Met ??? Fluid Management: Urine output equal to or greater than 30 mL/hour Met ??? Nutrition Managment: Tolerating oral intake without nausea and vomiting. Met ??? Discharge Planning: Discharge needs identified and/or admission screening assessments completed. Met Fall/Trauma/Injury Risk (Adult) ??? Fall/Trauma/Injury Risk: Absence of Trauma/Injury/Falls Progressing General Plan of Care (Adult, Obstetrics) ??? Individualization/Patient-Specific Goal (Adult, Obstetrics) Progressing ??? Plan of Care Review (Adult, Obstetrics) Progressing ??? Identify Discharge Needs Progressing Infection, Risk/Actual (Adult) ??? Infection, Risk/Actual: Infection Prevention/Resolution/Control Progressing Pressure Ulcer Risk or Treatment ??? Prevent/Manage Potential Problems Progressing SIRS/Sepsis (Adult) ??? Prevent/Manage Potential Problems Progressing HER MACHINE * Care Plan - Sondra Kolb RN - 11/26/2015 3:25 PM CST Initial Discharge Planning Assessment completed. Introductory Care Management letter given. Care Management visited with patient and patient's , and discussed Care Management role and discharge planning. Consult acknowledged. Prior to admission, patient's functional level was independent. Patient states that he was an avid walker and hiker and walked around 8 miles per day. Prior to admission, patient resided at his single level home with 2 steps to enter. Patient states he lives with . Prior to admission, patient received assistance with nothing, and had no services in home. Durable medical equipment at home includes nothing. Patient has not had a stay at an acute care hospital in the last 30 days. Primary Emergency Contact: YESSICA MCCAULEYFly PCP verified as Ilan Whitley DO. Patient's insurance verified as Payor: MEDICARE / Plan: MEDICARE PART A AND B / Product Type: Medicare / [facility] ([facility] choice) - I have verified that the patient's primary insurance is medicare. The patient's preferred pharmacy is [email or web address] in [facility] Discussed discharge goals and possible discharge needs including returning home with family assistance. Care Management contact information provided. Care Management will continue to follow and assist asneeded. Sondra Kolb RN, 11/26/2015 3:25 PM x [phone] PW GEN: SKIN CARE PREVENTION: PRESSURE ULCER Pathway Day 1 ??? Discharge Planning: Discharge needs identified with patient and/or healthcare delegate involvedin discharge planning. Met PW MED: SEPSIS, ADULT Pathway Day 1 ??? Discharge Planning: Patient/Delegate have been included with identifying discharge needs and/oradmission screening assessments completed. Met PW MED: URINARY TRACT INFECTION, ADULT - ADMIT TO MED SURG Pathway Day 1 ??? Discharge Planning: Discharge needs identified and/or admission screening assessments completed. Met General Plan of Care (Adult, Obstetrics) ??? Identify Discharge Needs Progressing HER MACHINE documented in this encounter Plan of Treatment Upcoming Encounters Date Type Department Care Team (Late st Contact Info) Description 12/13/2024 9:45 AM BUNCHER MACHINE Office Visit [facility] Oncology and Hematology - [place] [address] [place] [address] [address] [place] [address] Glenn Al MD [address] [facility] [address] [place] [address] documented as of this encounter Procedures Procedure Name Priority Date/Time Associated Diagnosis Comments DIFFERENTIAL, MANUAL Routine 11/28/2015 5:45 AM BUNCHER MACHINE CBC WITH DIFFERENTIAL Routine 11/28/2015 5:45 AM BUNCHER MACHINE BASIC METABOLIC PANEL Routine 11/28/2015 5:45 AM BUNCHER MACHINE DIFFERENTIAL, MANUAL Routine 11/27/2015 5:50 AM BUNCHER MACHINE CBC WITH DIFFERENTIAL Routine 11/27/2015 5:50 AM BUNCHER MACHINE DIFFERENTIAL, MANUAL Routine 11/27/2015 4:00 AM BUNCHER MACHINE CBC WITH DIFFERENTIAL Routine 11/27/2015 4:00 AM BUNCHER MACHINE BASIC METABOLIC PANEL Routine 11/27/2015 4:00 AM BUNCHER MACHINE US RENAL AND BLADDER Routine 11/26/2015 11:03 AM BUNCHER MACHINE RESPIRATORY PATHOGEN PCR PANEL Routine 11/26/2015 10:28 AM BUNCHER MACHINE URINALYSIS WITH REFLEX CULTURE Routine 11/26/2015 9:15 AM BUNCHER MACHINE SODIUM, RANDOM URINE Routine 11/26/2015 9:15 AM BUNCHER MACHINE OSMOLALITY, URINE Routine 11/26/2015 9:1 5 AM BUNCHER MACHINE CREATININE, RANDOM URINE Routine 11/26/2015 9:15 AM BUNCHER MACHINE BLOOD CULTURE Routine 11/26/2015 9:15 AM BUNCHER MACHINE URINE CULTURE Routine 11/26/2015 9:15 AM BUNCHER MACHINE VITAMIN B12 LEVEL Routine 11/26/2015 9:1 5 AM BUNCHER MACHINE XR CHEST PA AND LATERAL 2 VW Stat 11/26/2015 8:48 AM BUNCHER MACHINE OT EVAL AND TREAT Routine 11/26/2015 8:3 6 AM BUNCHER MACHINE PT EVAL AND TREAT Routine 11/26/2015 8:3 6 AM BUNCHER MACHINE BLOOD CULTURE Routine 11/26/2015 8:30 AM BUNCHER MACHINE DIFFERENTIAL, MANUAL Stat 11/26/2015 8:20 AM BUNCHER MACHINE LACTIC ACID Stat 11/26/2015 8:20 AM BUNCHER MACHINE IRON, TIBC, AND PERCENT SATURATION Routine 11/26/2015 8:20 AM BUNCHER MACHINE CBC WITH DIFFERENTIAL Stat 11/26/2015 8:20 AM BUNCHER MACHINE SEDIMENTATION RATE Routine 11/26/2015 8: 20 AM BUNCHER MACHINE C-REACTIVE PROTEIN Routine 11/26/2015 8: 20 AM BUNCHER MACHINE OSMOLALITY Routine 11/26/2015 8:20 AM BUNCHER MACHINE FERRITIN Routine 11/26/2015 8:20 AM BUNCHER MACHINE COMPREHENSIVE METABOLIC PANEL Stat 11/26/2015 8:20 AM BUNCHER MACHINE MRSA PCR RAPID SCREEN Routine 11/26/2015 6:33 AM BUNCHER MACHINE documented in this encounter Results * (ABNORMAL) MANUAL DIFFERENTIAL (11/28/2015 5:45 AM BUNCHER MACHINE) SEGMENTED NEUTROPHILS 63 45 - 70 % 11/28/2015 10:14 AM BUNCHER MACHINE [facility] BANDS RELATIVE 4 <6 % 11/28/2015 10:14 AM BUNCHER MACHINE [facility] LYMPHOCYTES RELATIVE 13(L) 16 - 45 % 11/28/2015 10:14 AM BUNCHER MACHINE [facility] ATYPICAL LYMPHOCYTES RELATIVE 4 <6 % 11/28/2015 10:14 AM BUNCHER MACHINE [facility] MONOCYTES RELATIVE 6 3 - 13 % 11/28/2015 10:14 AM [facility] EOSINOPHILS RELATIVE 3 <7 % 11/28/2015 10:14 AM [facility] METAMYELOCYTES RELATIVE 6(H) <=0 % 11/28/2015 10:14 AM BUNCHER MACHINE [facility] MYELOCYTES - REL (DIFF) 1(H) <=0 % 11/28/2015 10:14 AM BUNCHER MACHINE [facility] NEUTROPHILS ABSOLUTE COUNT 7.44(H) 1.90 - 7.00 K/uL 11/28/2015 10:14 AM BUNCHER MACHINE [facility] LYMPHOCYTES ABSOLUTE 1.44 0.70 - 4.50 K/uL 11/28/2015 10:14 AM [facility] ATYPICAL LYMPHS ABSOLUTE 0.44(H) <=0.00 K/uL 11/28/2015 10:14 AM [facility] Via [facility] MONOCYTES ABSOLUTE 0.67 0.10 - 1.30 K/uL 11/28/2015 10:14 AM [facility] LABORATORY [facility] EOSINOPHILS ABSOLUTE 0.33 <0.70 K/uL 11/28/2015 10:14 AM [facility] Via [facility] METAMYELOCYTES ABSOLUTE 0.67(H) <=0.00 K/uL 11/28/2015 10:14 AM [facility] Via [facility] MYELOCYTES - ABS (DIFF) 0.11(H) <=0.00 K/uL 11/28/2015 10:14 AM [facility] Via [facility] TOTAL CELLS COUNTED IN DIFF 100 11/28/2015 10:14 AM [facility] Via [facility] PLATELET EST. Consistent with Count 11/28/2015 10:14 AM [facility] [employer] [facility] ANISOCYTOSIS 1+ /hpf 11/28/2015 10:14 AM [facility] [employer] [facility] TOXIC GRANULATION 1+ 11/28/2015 10:14 AM [facility] [employer] [facility] Blood Venipuncture - L ab Collect / Unknown 11/28/2015 5:45 AM BUNCHER MACHINE 11/28/2015 6:30 AM [facility] Janeth [facility] HEMATOLOGY ORDERABLE S COM [facility] Via [facility] CLIA# [id number] [address] [facility] [place] [address] * (ABNORMAL) CBC WITH DIFFERENTIAL (11/28/2015 5:45 AM BUNCHER MACHINE) Pathologist [facility] WBC 11.1(H) 4.0 - 9.8 K/uL 11/28/2015 6:59 AM [facility] RBC 2.98(L) 4.50 - 5.40 M/uL 11/28/2015 6:59 AM [facility] Via [facility] HEMOGLOBIN 9.5(L) 13.6 - 16.5 g/dL 11/28/2015 6:59 AM [facility] - [facility] HEMATOCRIT 28.5(L) 40.0 - 48.0 % 11/28/2015 6:59 AM [facility] [employer] - [facility] MCV 95.6 82.0 - 99.0 fL 11/28/2015 6:59 AM [facility] [employer] [facility] - [facility] MCH 31.9 27.2 - 32.6 pg 11/28/2015 6:59 AM [facility] [employer] - [facility] MCHC 33.3 30.0 - 36.0 g/dL 11/28/2015 6:59 AM [facility] [employer] SERVICES - [facility] RDW 14.6(H) 11.5 - 14.5 % 11/28/2015 6:59 AM [facility] [employer] [facility] - [facility] RDW-STDEV 50.7(H) 37.1 - 48.7 fL 11/28/2015 6:59 AM [facility] [employer] - [facility] PLATELETS 428(H) 140 - 350 K/uL 11/28/2015 6:59 AM [facility] [employer] SERVICES - [facility] MPV 10.2 9.3 - 12.4 fL 11/28/2015 6:59 AM BUNCHER MACHINE [employer] SERVICES - [facility] Blood Venipuncture - L ab Collect / Unknown 11/28/2015 5:45 AM BUNCHER MACHINE 11/28/2015 6:30 AM BUNCHER MACHINE [facility] HEMATOLOGY ORDERABLE S [facility] Via SERVICES [facility]# [id number] 5 [facility] [place] [address] * (ABNORMAL) BASIC METABOLIC PANEL (11/28/2015 5:45 AM BUNCHER MACHINE) SODIUM 139 136 - 145 mmol/L 11/28/2015 7:16 AM [facility] [employer] SERVICES [facility] POTASSIUM 4.3 3.5 - 5.0 mmol/L 11/28/2015 7:16 AM [facility] [employer] SERVICES [facility]. [facility] CHLORIDE 107 98 - 107 mmol/L 11/28/2015 7:16 AM [facility] [employer] - . [facility] CO2 19(L) 22 - 29 mmol/L 11/28/2015 7:16 AM [facility] CALCIUM 7.6(L) 8.6 - 10.2 mg/dL 11/28/2015 7:16 AM [facility] BUN 8 8 - 23 mg/dL 11/28/2015 7:16 AM [facility] CREATININE 0.79 0.67 - 1.17 mg/dL 11/28/2015 7:16 AM [facility] Comment: The GFR result is not clinically significant on patients <18 or >70 years of age. GLUCOSE 88 79 - 99 mg/dL 11/28/2015 7:16 AM [facility] GFR >60 mL/min/1.7 3 sq meter 11/28/2015 7:16 AM [facility] Via [facility] Comment: eGFR has not [...] result. GFR, >60 mL/min/1.7 3 sq meter 11/28/2015 7:16 AM [facility] ANION GAP 13 8 - 16 mmol/L 11/28/2015 7:16 AM [facility] Blood Venipuncture - L ab Collect / Unknown 11/28/2015 5:45 AM BUNCHER MACHINE 11/28/2015 6:30 AM BUNCHER MACHINE Janeth Kirkland DO [facility]STR[facility]ABLES [id number] 5 [facility] [place] [address] * (ABNORMAL) MANUAL DIFFERENTIAL (11/27/2015 5:50 AM BUNCHER MACHINE) SEGMENTED NEUTROPHILS 74(H) 45 - 70 % 11/27/2015 10:35 AM [facility] - [facility] BANDS RELATIVE 3 <6 % 11/27/2015 10:35 AM [facility] [employer] [facility] LYMPHOCYTES RELATIVE 14(L) 16 - 45 % 11/27/2015 10:35 AM [facility] [facility] MONOCYTES RELATIVE 7 3 - 13 % 11/27/2015 10:35 AM [facility] - [facility] EOSINOPHILS RELATIVE 1 <7 % 11/27/2015 10:35 AM [facility] - [facility] METAMYELOCYTES RELATIVE 1(H) <=0 % 11/27/2015 10:35 AM [facility] - [facility] NEUTROPHILS ABSOLUTE COUNT 9.55(H) 1.90 - 7.00 K/uL 11/27/2015 10:35 AM [facility] - [facility] LYMPHOCYTES ABSOLUTE 1.74 0.70 - 4.50 K/uL 11/27/2015 10:35 AM [facility] MONOCYTES ABSOLUTE 0.87 0.10 - 1.30 K/uL 11/27/2015 10:35 AM [facility] - [facility] EOSINOPHILS ABSOLUTE 0.12 <0.70 K/uL 11/27/2015 10:35 AM [facility] - [facility] METAMYELOCYTES ABSOLUTE 0.12(H) <=0.00 K/uL 11/27/2015 10:35 AM [facility] [employer] [facility] TOTAL CELLS COUNTED IN DIFF 100 11/27/2015 10:35 AM [facility] - [facility] PLATELET EST. Consistent with Count 11/27/2015 10:35 AM [facility] ANISOCYTOSIS 1+ /hpf 11/27/2015 10:35 AM [facility] [facility] POIKILOCYTES 1+ /hpf 11/27/2015 10:35 AM [facility] - [facility] OVALOCYTES 1+ /hpf 11/27/2015 10:35 AM [facility] [facility] Blood Collection / Unknown 11/27/2015 5:50 AM BUNCHER MACHINE 11/27/2015 6:02 AM BUNCHER MACHINE Janeth Kirkland DO HEMATOLOGY ORDERABLE S COM [employer] [facility] [id number] [address] [place] [address] * (ABNORMAL) CBC WITH DIFFERENTIAL (11/27/2015 5:50 AM BUNCHER MACHINE) WBC 12.4(H) 4.0 - 9.8 K/uL 11/27/2015 7:02 AM [facility] [employer] RBC 2.83(L) 4.50 - 5.40 M/uL 11/27/2015 7:02 AM [facility] [employer] HEMOGLOBIN 9.2(L) 13.6 - 16.5 g/dL 11/27/2015 7:02 AM [facility] [employer] SERVICES - [facility] HEMATOCRIT 26.9(L) 40.0 - 48.0 % 11/27/2015 7:02 AM [facility] [employer] SERVICES - [facility] MCV 95.1 82.0 - 99.0 fL 11/27/2015 7:02 AM [facility] [employer] SERVICES - [facility] MCH 32.5 27.2 - 32.6 pg 11/27/2015 7:02 AM [facility] [employer] - [facility] MCHC 34.2 30.0 - 36.0 g/dL 11/27/2015 7:02 AM [facility] [employer] SERVICES - [facility] RDW 14.0 11.5 - 14.5 % 11/27/2015 7:02 AM [facility] [employer] SERVICES - [facility] RDW-STDEV 49.0(H) 37.1 - 48.7 fL 11/27/2015 7:02 AM [facility] [employer] SERVICES - [facility] PLATELETS 360(H) 140 - 350 K/uL 11/27/2015 7:02 AM BUNCHER MACHINE [employer] SERVICES - [facility] MPV 10.4 9.3 - 12.4 fL 11/27/2015 7:02 AM BUNCHER MACHINE [employer] SERVICES - [facility] Blood Collection / Unknown 11/27/2015 5:50 AM BUNCHER MACHINE 11/27/2015 6:02 AM BUNCHER MACHINE Janeth Kirkland DO HEMATOLOGY ORDERABLE S [employer] CLIA# [id number] [address] [place] [address] * (ABNORMAL) MANUAL DIFFERENTIAL (11/27/2015 4:00 AM BUNCHER MACHINE) SEGMENTED NEUTROPHILS 70 45 - 70 % 11/27/2015 7:09 AM [facility] - [facility] LYMPHOCYTES RELATIVE 20 16 - 45 % 11/27/2015 7:09 AM BUNCHER MACHINE [employer] SERVICES - [facility] MONOCYTES RELATIVE 7 3 - 13 % 11/27/2015 7:09 AM [facility] [employer] SERVICES - [facility] EOSINOPHILS RELATIVE 3 <7 % 11/27/2015 7:09 AM [facility] [employer] SERVICES - [facility] NEUTROPHILS ABSOLUTE COUNT 8.89(H) 1.90 - 7.00 K/uL 11/27/2015 7:09 AM [facility] [employer] SERVICES - [facility] LYMPHOCYTES ABSOLUTE 2.54 0.70 - 4.50 K/uL 11/27/2015 7:09 AM [facility] [employer] SERVICES - [facility] MONOCYTES ABSOLUTE 0.89 0.10 - 1.30 K/uL 11/27/2015 7:09 AM [facility] [employer] [facility] - [facility] EOSINOPHILS ABSOLUTE 0.38 <0.70 K/uL 11/27/2015 7:09 AM [facility] [employer] SERVICES - [facility] TOTAL CELLS COUNTED IN DIFF 100 11/27/2015 7:09 AM [facility] - [facility] PLATELET EST. Consistent with Count 11/27/2015 7:09 AM [facility] [employer] SERVICES - [facility] ANISOCYTOSIS 1+ /hpf 11/27/2015 7:09 AM BUNCHER MACHINE [employer] SERVICES - [facility] POIKILOCYTES 1+ /hpf 11/27/2015 7:09 AM [employer] SERVICES - [facility] OVALOCYTES 1+ /hpf 11/27/2015 7:09 AM BUNCHER MACHINE [facility] [facility] Blood Collection / Unknown 11/27/2015 4:00 AM BUNCHER MACHINE 11/27/2015 4:59 AM BUNCHER MACHINE Janeth Kirkland DO HEMATOLOGY ORDERABLE S COM [employer] CLIA# [id number] [address] [place] [address] * (ABNORMAL) CBC WITH DIFFERENTIAL (11/27/2015 4:00 AM BUNCHER MACHINE) WBC 12.7(H) 4.0 - 9.8 K/uL 11/27/2015 5:52 AM BUNCHER MACHINE [employer] - [facility] RBC 2.89(L) 4.50 - 5.40 M/uL 11/27/2015 5:52 AM [facility] - [facility] HEMOGLOBIN 9.3(L) 13.6 - 16.5 g/dL 11/27/2015 5:52 AM [facility] - [facility] HEMATOCRIT 27.4(L) 40.0 - 48.0 % 11/27/2015 5:52 AM [facility] - [facility] MCV 94.8 82.0 - 99.0 fL 11/27/2015 5:52 AM [facility] - [facility] MCH 32.2 27.2 - 32.6 pg 11/27/2015 5:52 AM [facility] - [facility] MCHC 33.9 30.0 - 36.0 g/dL 11/27/2015 5:52 AM [facility] RDW 14.0 11.5 - 14.5 % 11/27/2015 5:52 AM [facility] LABORATORY SERVICES - [facility] RDW-STDEV 48.4 37.1 - 48.7 fL 11/27/2015 5:52 AM [facility] - [facility] PLATELETS 367(H) 140 - 350 K/uL 11/27/2015 5:52 AM [facility] - [facility] MPV 10.5 9.3 - 12.4 fL 11/27/2015 5:52 AM [facility] [email or web address] - [facility] Blood Collection / Unknown 11/27/2015 4:00 AM BUNCHER MACHINE 11/27/2015 4:59 AM BUNCHER MACHINE Janeth Kirkland DO HEMATOLOGY ORDERABLE S [facility] Via [facility] KIM# [id number] [address] [place] [address] * (ABNORMAL) BASIC METABOLIC PANEL (11/27/2015 4:00 AM BUNCHER MACHINE) SODIUM 136 136 - 145 mmol/L 11/27/2015 6:47 AM [facility] [employer] [facility] POTASSIUM 4.4 3.5 - 5.0 mmol/L 11/27/2015 6:47 AM [facility] [employer] [facility] CHLORIDE 105 98 - 107 mmol/L 11/27/2015 6:47 AM [facility] [employer] [facility] Comment:Significant change f rom prior result, correlate clinically and redraw if necessary. Verified by redraw. Release results per JORGE ALBERTO Poole. CO2 18(L) 22 - 29 mmol/L 11/27/2015 6:47 AM [facility] [employer] [facility] CALCIUM 7.3(L) 8.6 - 10.2 mg/dL 11/27/2015 6:47 AM [facility] [employer] [facility] BUN 17 8 - 23 mg/dL 11/27/2015 6:47 AM [facility] CREATININE 0.88 0.67 - 1.17 mg/dL 11/27/2015 6:47 AM [facility] [employer] [facility] Comment: The GFR result is not clinically significant on patients <18 or >70 years of age.Significant change from prior result, correlate clinically and redraw if necessary. Verified by redraw. Release results per JORGE ALBERTO Poole. GLUCOSE 94 79 - 99 mg/dL 11/27/2015 6:47 AM [facility] [employer] [facility] GFR >60 mL/min/1.7 3 sq meter 11/27/2015 6:47 AM [facility] [employer] [facility] Comment: eGFR has not [...] result. GFR, >60 mL/min/1.7 3 sq meter 11/27/2015 6:47 AM BUNCHER MACHINE [facility] LABORATORY SERVICES - [facility] ANION GAP 13 8 - 16 mmol/L 11/27/2015 6:47 AM BUNCHER MACHINE [facility] LABORATORY SERVICES - [facility] Blood Collection / Unknown 11/27/2015 4:00 AM BUNCHER MACHINE 11/27/2015 4:59 AM BUNCHER MACHINE Janeth Kirkland DO CHEMISTRY ORDERABLES [employer] LABORATORY SERVICES [facility] CLIA# [id number] [address] [place] [address] * US RENAL AND BLADDER (11/26/2015 11:03 AM BUNCHER MACHINE) Anatomical Region Laterality Modality Abdomen Ultrasound 11/26/2015 10:4 7 AM BUNCHER MACHINE Impressions 11/26/2015 11:11 AM BUNCHER MACHINE IMPRESSION: ?? Complex right renal cyst and followup is recommended. Echogenic kidneys consistent with medical renal disease. Narrative 11/26/2015 11:11 AM BUNCHER MACHINE ULTRASOUND OF THE RETROPERITONEUM HISTORY: Acute renal failure FINDINGS: ??Multiple transverse, longitudinal and oblique images of the kidneys and bladder were obtained. ??The right kidney measures 12.4 cm longitudinally. In the mid right kidney there is a cyst measuring 1.5 x 1 x 1.3 cm with a wall calcification measuring 4 mm. Followup ultrasound in 6 months is recommended. The left kidney measures 11.8 cm longitudinally. ?? Both kidneys are mildly echogenic consistent with medical renal disease. There is no evidence of hydronephrosis. The bladder is normal. Procedure Note Monica Ramirez MD - 11/26/2015 ULTRASOUND OF THE RETROPERITONEUM HISTORY: Acute renal failure FINDINGS: Multiple transverse, longitudinal and oblique images of the kidneys and bladder were obtained. The right kidney measures 12.4 cm longitudinally. In the mid right kidney there is a cyst measuring 1.5 x 1 x 1.3 cm with a wall calcification measuring 4 mm. Followup ultrasound in 6 months is recommended. The left kidney measures 11.8 cm longitudinally. Both kidneys are mildly echogenic consistent with medical renal disease. There is no evidence of hydronephrosis. The bladder is normal. IMPRESSION IMPRESSION: Complex right renal cyst and followup is recommended. Echogenic kidneys consistent with medical renal disease. Janeth Kirkland DO US ORDERABLES * RESPIRATORY PATHOGEN PCR PANEL (11/26/2015 10:28 AM BUNCHER MACHINE) Pathologist [facility] Respiratory Pathogen PCR Panel No respiratory pathogen nucleic acids detected. No respiratory pathogen nucleic acids detected. 11/26/2015 12:22 PM [facility] Via [facility] Respiratory specimen NASOPHARYNGEAL SWAB / Unknown Collection / Unknown 11/26/2015 10:28 AM [employer]ACHINE 11/26/2015 10:33 AM [employer]ACHINE Narrative [facility] - 11/26/2015 12:22 PM [employer]ACHINE [employer] Respiratory Panel is a multiplex nucleic acid detection test for 20 targets: Adenovirus, Coronavirus HKU1, Coronavirus NL63, Coronavirus 229E, Coronavirus OC43, Influenza A, Influenza A H1, Influenza A H1-2009, Influenza A H3, Influenza B, Human Metapneumovirus, Parainfluenza 1 virus, Parainfluenza 2 virus, Parainfluenza 3 virus, Parainfluenza 4 virus, RSV, Rhinovirus/Enterovirus (cannot differentiate due to genectic similarities), Bordetella pertussis, Chlamydophila pneumoniae, and Mycoplasma pneumoniae. ?? Janeth Kirkland DO MICROBIOLOGY - [facility] ORDERABLES [facility] Via [facility]# [id number] [facility] [place] [id number] * (ABNORMAL) URINE CULTURE (11/26/2015 9:15 AM B[employer]CHER MACHINE) Pathologist [facility] CULTURE 10,000-50,000 cfu/mL Escherichia coli(A) [place] [facility] VITEK 2 11/28/2015 10:57 AM [employer] MACHINE [facility] Urine, clean catch URINE SPECIMEN OBTAINED BY CLEAN CATCH PROCEDURE / Unknown Collection / Unknown 11/26/2015 9:15 AM [employer] MACHINE 11/26/2015 9:31 AM [employer] MACHINE Narrative Organism Antibiotic Method Susceptibility Escherichia coli AMPICILLIN [place] [facility] THI K 2 4 mcg/mL: Susceptible Escherichia coli CEFAZOLIN [place] [facility] THI K 2 <=4 mcg/mL: Susceptible Escherichia coli CIPROFLOXACIN [place] METHOD THI K 2 <=0.25 mcg/mL: Susceptible Escherichia coli GENTAMICIN [place] METHOD THI K 2 <=1 mcg/mL: Susceptible Escherichia coli NITROFURANTOIN [place] METHOD THI K 2 <=16 mcg/mL: Susceptible Escherichia coli TRIMETHOPRIM/ SULFAMETHOXAZOLE [place] METHOD VITEK 2 <=20 mcg/mL: Susceptible Escherichia coli ESBL [place] METHOD THI K 2 NEGATIVE Janeth Kirkland DO MICROBIOLOGY - [facility] AL ORDERABLES Performing Organization Address [facility] Co de Phone Number [facility] CLIA# [id number] [address] [place] [address] * VITAMIN B12 LEVEL (11/26/2015 9:15 AM BUNCHER MACHINE) Pathologist [facility] VITAMIN B12 902 211 - 946 pg/mL 11/26/2015 11:32 AM BUNCHER MACHINE [facility] Via [facility] Comment: It has been reported that between 5 to 10% of patients with values between 200 and 400 pg/mL may experience neuropsychiatric and hematologic abnormalities due to occult B12 deficiency. ??Less than 1% of patients with values above 400 pg/mL will have symptoms. Blood Collection / Unknown 11/26/2015 9:15 AM BUNCHER MACHINE 11/26/2015 9:31 AM BUNCHER MACHINE Janeth Kirkland DO CHEMISTRY ORDERABLES Performing Organization Address [facility] Co de Phone Number [facility] CLIA# [id number] [address] [place] [address] * BLOOD CULTURE (11/26/2015 9:15 AM BUNCHER MACHINE) BLOOD CULTURE No growth 12/01/2015 11:12 AM BUNCHER MACHINE [facility] Blood (Peripheral) Collection / Unknown 11/26/2015 9:15 AM BUNCHER MACHINE 11/26/2015 9:33 AM BUNCHER MACHINE Janeth Kirkland DO MICROBIOLOGY - GENER AL ORDERABLES Performing Organization Address City/[facility]/ZIP Co de Phone Number [facility] CLIA# [id number] [address] [place] [address] * OSMOLALITY, URINE (11/26/2015 9:15 AM BUNCHER MACHINE) OSMOLALITY, URINE 223 50 - 1,200 mOsm/kg 11/26/2015 9:56 AM BUNCHER MACHINE [facility] Urine, clean catch Collection / Unknown 11/26/2015 9:15 AM BUNCHER MACHINE 11/26/2015 9:31 AM BUNCHER MACHINE Janeth Kirkland DO URINE ORDERABLES Performing Organization Address [facility] Co de Phone Number [facility] CLIA# [id number] [address] [place] [address] * CREATININE, RANDOM URINE (11/26/2015 9:15 AM BUNCHER MACHINE) CREATININE, URINE 99.2 40.0 - 278.0 mg/dL 11/26/2015 11:24 AM BUNCHER MACHINE [facility] Via [facility] Comment: Reference Range varies with fluid intake and diet. Urine, clean catch Collection / Unknown 11/26/2015 9:15 AM BUNCHER MACHINE 11/26/2015 9:31 AM BUNCHER MACHINE Janeth Kirkland DO URINE ORDERABLES Performing Organization Address [facility] Co de Phone Number [facility] CLIA# [id number] [address] [place] [address] * SODIUM, RANDOM URINE (11/26/2015 9:15 AM BUNCHER MACHINE) SODIUM, URINE 13 mmol/L 11/26/2015 11:24 AM BUNCHER MACHINE [facility] Urine, clean catch Collection / Unknown 11/26/2015 9:15 AM BUNCHER MACHINE 11/26/2015 9:31 AM BUNCHER MACHINE Janeth Kirkland DO URINE ORDERABLES [facility] LABORATORY SERVICES - [facility] CLIA# [id number] [address] [place] [address] * (ABNORMAL) URINALYSIS WITH REFLEX CULTURE (11/26/2015 9:15 AM BUNCHER MACHINE) COLOR UA Yellow Pale to Dark Yellow 11/26/2015 9:57 AM [facility] Via SERVICES - [facility] CLARITY UA Slightly Cloudy(A) Clear 11/26/2015 9:57 AM [facility] [employer] SERVICES - [facility] SPECIFIC GRAVITY UA 1.011 1.003 - 1.035 11/26/2015 9:57 AM [facility] Via [facility] - [facility] PH UA 5.0 5.0 - 8.0 11/26/2015 9:57 AM [facility] Via [facility] - [facility] LEUKOCYTE ESTERASE UA 2+(A) Negative 11/26/2015 9:57 AM [facility] Via [facility] - [facility] NITRITE UA Negative Negative 11/26/2015 9:57 AM [facility] [employer] [facility] PROTEIN UA Negative Negative 11/26/2015 9:57 AM [facility] Via [facility] - [facility] GLUCOSE UA Negative Negative 11/26/2015 9:57 AM [facility] Via [facility] - [facility] KETONES UA Negative Negative 11/26/2015 9:57 AM [facility] Via [facility] - [facility] UROBILINOGEN UA Normal <2.0 mg/dL 11/26/2015 9:57 AM [facility] Via [facility] BILIRUBIN UA Negative Negative 11/26/2015 9:57 AM [facility] [employer] [facility] BLOOD UA 2+(A) Negative 11/26/2015 9:57 AM [facility] [employer] LABORATORY [facility] - [facility] WBC UA 11-25(A) 0 - 2 /hpf 11/26/2015 9:57 AM [facility] [facility] LABORATORY SERVICES - . [facility] RBC UA 6-10(A) 0 - 2 /hpf 11/26/2015 9:57 AM [facility] [employer] LABORATORY SERVICES - . [facility] BACTERIA UA 2+(A) Negative /hpf 11/26/2015 9:57 AM BUNCHER MACHINE [facility] LABORATORY [facility] HYALINE CAST 11-25(A) None Seen, 0-2 /lpf 11/26/2015 9:57 AM BUNCHER MACHINE [facility] Urine, clean catch Collection / Unknown 11/26/2015 9:15 AM BUNCHER MACHINE 11/26/2015 9:31 AM BUNCHER MACHINE Narrative [facility] - 11/26/2015 9:57 AM BUNCHER MACHINE Based on results, a urine culture has been reflexed. Janeth Kirkland DO [facility]INE [facility]ABLES [id number] [address] [place] [address] * XR CHEST PA AND LATERAL (11/26/2015 8:48 AM BUNCHER MACHINE) Anatomical Region Laterality Modality Chest Computed Radiogr aphy 11/26/2015 8:40 AM BUNCHER MACHINE Impressions 11/26/2015 9:50 AM BUNCHER MACHINE IMPRESSION: Old granulomatous disease, no active disease. Narrative 11/26/2015 9:50 AM BUNCHER MACHINE CHEST 2 VIEWS DATE: ?11/26/2015 HISTORY: Fever, initial encounter FINDINGS: ??Heart size is normal. Calcifications of old granulomatous disease are noted. No mediastinal widening or adenopathy is seen. No infiltrate or pleural effusion is visible. No pneumothorax is seen. Procedure Note Pancho Castaneda MD - 11/26/2015 CHEST 2 VIEWS DATE: 11/26/2015 HISTORY: Fever, initial encounter FINDINGS: Heart size is normal. Calcifications of old granulomatous disease are noted. No mediastinal widening or adenopathy is seen. No infiltrate or pleural effusion is visible. No pneumothorax is seen. IMPRESSION IMPRESSION: Old granulomatous disease, no active disease. Janeth Kirkland DO DIAGNOSTIC IMAGING O RDERABLES * BLOOD CULTURE (11/26/2015 8:30 AM BUNCHER MACHINE) BLOOD CULTURE No growth 12/01/2015 11:12 AM BUNCHER MACHINE [facility] Via [facility] Blood (Peripheral) 11/26/2015 8:30 AM BUNCHER MACHINE 11/26/2015 8:44 AM BUNCHER MACHINE Janeth Isael MICROBIOLOGY - GENER AL ORDERABLES Performing Organization Address City/[facility]/ZIP Co de Phone Number [facility] Via [facility] CLIA# [id number] [address] [place], [place] [address] * (ABNORMAL) FERRITIN (11/26/2015 8:20 AM BUNCHER MACHINE) FERRITIN 803.4(H) 30.0 - 400.0 ng/mL 11/26/2015 9:45 AM BUNCHER MACHINE [facility] Via [facility] Blood 11/26/2015 8:20 AM BUNCHER MACHINE 11/26/2015 8:33 AM BUNCHER MACHINE Janethean Kirkland CHEMISTRY ORDERABLES Performing Organization Address [facility] Co de Phone Number [facility] Via [facility] CLIA# [id number] [address] [place], [place] [address] * (ABNORMAL) IRON, TIBC, AND PERCENT SATURATION (11/26/2015 8:20 AM BUNCHER MACHINE) IRON 16(L) 59 - 158 ug/dL 11/26/2015 9:33 AM BUNCHER MACHINE [employer] LABORATORY SERVICES [facility] TIBC 109(L) 250 - 450 ug/dL 11/26/2015 9:33 AM [facility] [employer] [facility] IRON % SATURATION 15(L) 20 - 50 % 11/26/2015 9:33 AM BUNCHER MACHINE [employer] [facility] TRANSFERRIN 86(L) 200 - 360 mg/dL 11/26/2015 9:33 AM [facility] [employer] [facility] Blood 11/26/2015 8:20 AM BUNCHER MACHINE 11/26/2015 8:33 AM BUNCHER MACHINE Janeth Kirkland DO CHEMISTRY ORDERABLES Performing Organization Address [facility] Co de Phone Number [facility] Via [facility] CLIA# [id number] [address] [place] [address] * (ABNORMAL) MANUAL DIFFERENTIAL (11/26/2015 8:20 AM BUNCHER MACHINE) SEGMENTED NEUTROPHILS 88(H) 45 - 70 % 11/26/2015 9:30 AM [facility] Via [facility] - . [facility] BANDS RELATIVE 4 <6 % 11/26/2015 9:30 AM [facility] LYMPHOCYTES RELATIVE 4(L) 16 - 45 % 11/26/2015 9:30 AM [facility] Via [facility] MONOCYTES RELATIVE 3 3 - 13 % 11/26/2015 9:30 AM [facility] Via [facility] EOSINOPHILS RELATIVE 1 <7 % 11/26/2015 9:30 AM [facility] Via [facility] NEUTROPHILS ABSOLUTE COUNT 18.95(H) 1.90 - 7.00 K/uL 11/26/2015 9:30 AM [facility] Via [facility] LYMPHOCYTES ABSOLUTE 0.82 0.70 - 4.50 K/uL 11/26/2015 9:30 AM [facility] Via [facility] MONOCYTES ABSOLUTE 0.62 0.10 - 1.30 K/uL 11/26/2015 9:30 AM [facility] Via [facility] EOSINOPHILS ABSOLUTE 0.21 <0.70 K/uL 11/26/2015 9:30 AM [facility] Via [facility] TOTAL CELLS COUNTED IN DIFF 100 11/26/2015 9:30 AM [facility] Via [facility] PLATELET EST. Consistent with Count 11/26/2015 9:30 AM [facility] Via [facility] RBC MORPHOLOGY Normal 11/26/2015 9:30 AM [facility] Via [facility] Blood 11/26/2015 8:20 AM BUNCHER MACHINE 11/26/2015 8:33 AM BUNCHER MACHINE Janeth Kirkland DO HEMATOLOGY ORDERABLE S COM [facility] Via [facility] CLIA# [id number] [address] [place] [address] * (ABNORMAL) SEDIMENTATION RATE (11/26/2015 8:20 AM BUNCHER MACHINE) ESR (SEDIMENTATION RATE) 77(H) <20 mm/Hr 11/26/2015 10:06 AM BUNCHER MACHINE [facility] Blood 11/26/2015 8:20 AM BUNCHER MACHINE 11/26/2015 8:33 AM BUNCHER MACHINE Janeth Kirkland DO HEMATOLOGY ORDERABLE S Performing Organization Address [facility]/ZIP Co de Phone Number [facility]# [id number] [address] [place] [address] * (ABNORMAL) C-REACTIVE PROTEIN (11/26/2015 8:20 AM BUNCHER MACHINE) CRP 230.2(H) <5.0 mg/L 11/26/2015 9:23 AM BUNCHER MACHINE [facility] Blood 11/26/2015 8:20 AM BUNCHER MACHINE 11/26/2015 8:33 AM BUNCHER MACHINE Janeth Kirkland DO CHEMISTRY ORDERABLES Performing Organization Address [facility] Phone Number [facility]# [id number] [address] [place], [place] [address] * LACTIC ACID (11/26/2015 8:20 AM BUNCHER MACHINE) LACTIC ACID 1.0 0.5 - 2.2 mmol/L 11/26/2015 9:18 AM BUNCHER MACHINE [facility] Blood 11/26/2015 8:20 AM BUNCHER MACHINE 11/26/2015 8:33 AM BUNCHER MACHINE Janeth Kirkland DO CHEMISTRY ORDERABLES Performing Organization Address [facility] Co de Phone Number [facility]# [id number] [address] [place] [address] * (ABNORMAL) OSMOLALITY (11/26/2015 8:20 AM BUNCHER MACHINE) OSMOLALITY 268(L) 275 - 300 mOsm/kg 11/26/2015 9:24 AM [facility] LABORATORY SERVICES [facility] Blood 11/26/2015 8:20 AM BUNCHER MACHINE 11/26/2015 8:33 AM BUNCHER MACHINE Jaenth Kirkland DO CHEMISTRY ORDERABLES [facility] Via SERVICES [facility] CLIA# [id number] [address] [facility] [place] [address] * (ABNORMAL) COMPREHENSIVE METABOLIC PANEL (11/26/2015 8:20 AM BUNCHER MACHINE) SODIUM 128(L) 136 - 145 mmol/L 11/26/2015 9:23 AM [facility] Via [facility] POTASSIUM 4.0 3.5 - 5.0 mmol/L 11/26/2015 9:23 AM [facility] CHLORIDE 93(L) 98 - 107 mmol/L 11/26/2015 9:23 AM [facility] CO2 19(L) 22 - 29 mmol/L 11/26/2015 9:23 AM [facility] CALCIUM 7.3(L) 8.6 - 10.2 mg/dL 11/26/2015 9:23 AM [facility] BUN 25(H) 8 - 23 mg/dL 11/26/2015 9:23 AM [facility] CREATININE 1.67(H) 0.67 - 1.17 mg/dL 11/26/2015 9:23 AM [facility] [employer] LABORATORY [facility] Comment: The GFR result is not clinically significant on patients <18 or >70 years of age. GLUCOSE 85 79 - 99 mg/dL 11/26/2015 9:23 AM [facility] LABORATORY [facility] TOTAL PROTEIN 5.6(L) 6.7 - 8.6 g/dL 11/26/2015 9:23 AM [facility] [employer] [facility] ALBUMIN 2.9(L) 3.5 - 5.2 g/dL 11/26/2015 9:23 AM [facility] [employer] LABORATORY [facility] BILIRUBIN TOTAL 0.2 0.2 - 1.1 mg/dL 11/26/2015 9:23 AM [facility] LABORATORY [facility] ALKALINE PHOSPHATASE 155(H) 40 - 129 U/L 11/26/2015 9:23 AM [facility] LABORATORY [facility] AST 27 <41 U/L 11/26/2015 9:23 AM [facility] ALT 25 <42 U/L 11/26/2015 9:23 AM [facility] Via [facility] GFR 40 mL/min/1.7 3 sq meter 11/26/2015 9:23 AM [facility] LABORATORY [facility] Comment: eGFR has not [...] please refer to the GFR result. GFR, 49 mL/min/1.7 3 sq meter 11/26/2015 9:23 AM [facility] LABORATORY [facility] ANION GAP 16 8 - 16 mmol/L 11/26/2015 9:23 AM [facility] Via [facility] Blood 11/26/2015 8:20 AM BUNCHER MACHINE 11/26/2015 8:33 AM [facility] Janeth Kirkland DO CHEMISTRY ORDERABLES [facility] Via [facility] CLIA# [id number] [address] [facility] [place] [id number] * (ABNORMAL) CBC WITH DIFFERENTIAL (11/26/2015 8:20 AM BUNCHER MACHINE) WBC 20.6(H) 4.0 - 9.8 K/uL 11/26/2015 8:53 AM [facility] LABORATORY [facility] RBC 3.03(L) 4.50 - 5.40 M/uL 11/26/2015 8:53 AM [facility] Via [facility] HEMOGLOBIN 9.7(L) 13.6 - 16.5 g/dL 11/26/2015 8:53 AM [facility] Via [facility] - . [place] HEMATOCRIT 28.2(L) 40.0 - 48.0 % 11/26/2015 8:53 AM [facility] Via [facility] - . [place] MCV 93.1 82.0 - 99.0 fL 11/26/2015 8:53 AM [facility] Via [facility] - . [place] MCH 32.0 27.2 - 32.6 pg 11/26/2015 8:53 AM [facility] Via [facility] - . [facility] MCHC 34.4 30.0 - 36.0 g/dL 11/26/2015 8:53 AM [facility] Via [facility] - . [place] RDW 13.5 11.5 - 14.5 % 11/26/2015 8:53 AM [facility] Via [facility] RDW-STDEV 46.1 37.1 - 48.7 fL 11/26/2015 8:53 AM [facility] Via [facility] PLATELETS 297 140 - 350 K/uL 11/26/2015 8:53 AM [facility] Via [facility] MPV 10.3 9.3 - 12.4 fL 11/26/2015 8:53 AM [facility] Via [facility] Blood 11/26/2015 8:20 AM BUNCHER MACHINE 11/26/2015 8:33 AM BUNCHER MACHINE [facility] HEMATOLOGY ORDERABLE S [facility] [id number] [address] [facility] [place] [address] * MRSA PCR RAPID SCREEN (11/26/2015 6:33 AM BUNCHER MACHINE) MRSA PCR RESULT MRSA not detected MRSA not detected 11/26/2015 9:33 AM [facility] Via [facility] Other, specify ANTERIOR NARES SWAB / Unknown Collection / Unknown 11/26/2015 6:33 AM BUNCHER MACHINE 11/26/2015 6:39 AM BUNCHER MACHINE Narrative [facility] LABORATORY [facility] - 11/26/2015 9:33 AM BUNCHER MACHINE This assay is used to detect Methicillin-Resistant S. aureus (MRSA) colonization of the nares. PLEASE NOTE: ??This test has not been approved to monitor effectiveness of MRSA decolonization. Residual DNA may temporarily be present after successful decolonization. This test was performed using an FDA approved screening methodology. Ladi Chun ICROBIOLOGY - GENERAL ORDERABLES [facility] LABORATORY [facility]# [id number] [address] [place] [address] documented in this encounter Visit Diagnoses Diagnosis Fever- Primary Fever, unspecified Personal history of prostate cancer Personal history of malignant neoplasm of prostate HTN (hypertension) Unspecified essential hypertension Leukocytosis Leukocytosis, unspecified ARF (acute renal failure) Acute kidney failure, unspecified Hyponatremia Hyposmolality and/or hyponatremia Severe sepsis E-coli UTI Urinary tract infection, site not specified Anemia, chronic disease Anemia of other chronic disease Complicated UTI (urinary tract infection) Urinary tract infection, site not specified 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 in this encounter Administered Medications Inactive Administered Medications - up to 3 most recent administrations Medication Order MAR Action Action Date Dose Rate Site cefTRIAXone (ROCEPHIN) IVPB 1,000 mg 1,000 mg, IV, EVERY 24 HOURS (DAILY), First dose on Thu11/26/15 at 1100, Until Discontinued, Routine, Antibiotic Indication: Urinary Tract Infection(UTI) / Infection New Bag 11/28/2015 10:29 AM BUNCHER MACHINE 1,000 mg New Bag 11/27/2015 9:34 AM BUNCHER MACHINE 1,000 mg New Bag 11/26/2015 10:31 AM BUNCHER MACHINE 1,000 mg heparin injection 5,000 Units 5,000 Units, subCUT, EVERY 8 HOURS, First dose on Thu11/26/15 at 1300, Until Discontinued, Routine Given 11/27/2015 8:16 PM BUNCHER MACHINE 5,000 Units Abdomen, Left Lower Quadrant Given 11/27/2015 1:50 PM BUNCHER MACHINE 5,000 Units A bdominal Tissue Given 11/27/2015 4:39 AM BUNCHER MACHINE 5,000 Units A bdominal Tissue sodium chloride 0.9% infusion IV, at 125 mL/hr, CONTINUOUS, Starting on Thu11/26/15 at 0800, Until Thu11/27/15 at 0807, Routine New Bag 11/27/2015 2:24 AM BUNCHER MACHINE 125 mL /hr Rate Verify 11/26/2015 6:00 PM BUNCHER MACHINE 125 mL/hr Rate Verify 11/26/2015 5:00 PM BUNCHER MACHINE 125 mL/hr tamsulosin (FLOMAX) SR 24 hour capsule 0.4 mg 0.4 mg, Oral, DAILY, First dose on Thu11/26/15 at 0900, Until Discontinued, Routine Given 11/28/2015 9:14 AM BUNCHER MACHINE 0.4 mg Given 11/27/2015 9:34 AM BUNCHER MACHINE 0.4 mg Given 11/26/2015 10:30 AM BUNCHER MACHINE 0.4 mg documented in this encounter Active and Recently Administered Medications Times are shown in BUNCHER MACHINE. Scheduled Medication Order 11/26/2015 11/27/2015 11/28/2015 cefTRIAXone (ROCEPHIN) IVPB 1,000 mg (CANCELED) 1,000 mg, IV, EVERY 24 HOURS (DAILY), First dose on Thu11/26/15 at 1100, Until Discontinued, Routine, Antibiotic Indication: Urinary Tract Infection(UTI) / Infection 1031 (New Bag - Provider: Sammi Baez RN)1101 (Stopped - Provider: Sammi Baez RN) 0934 (New Bag - Provider: Hodan Stafford RN)1004 (Stopped - Provider: Hodan Stafford, JORGE ALBERTO) 1029 (New Bag - Provider: Salome Detnon, JORGE ALBERTO)1059 (Due: Stopped - Provider: Salome Denton RN) heparin injection 5,000 Units (CANCELED) 5,000 Units, subCUT, EVERY 8 HOURS, First dose on Thu11/26/15 at 1300, Until Discontinued, Routine 1626 (Given - Provider: Sammi Baez RN)2036 (Given - Provider: Jaelyn Arora RN) 0439 (Given - Provider: Jaelyn Arora, JORGE ALBERTO)1350 (Given - Provider: Hodan Stafford, JORGE ALBERTO)2015 (Given - Provider: Ruthann Cunningham RN) 0500 (Refused - Provider: Trisha K Ostmann, RN) tamsulosin (FLOMAX) SR 24 hour capsule 0.4 mg (CANCELED) 0.4 mg, Oral, DAILY, First dose on Thu11/26/15 at 0900, Until Discontinued, Routine 1030 (Given - Provider: Sammi Baez, JORGE ALBERTO) 0934 (Given - Provider: Hodan Stafford, JORGE ALBERTO) 0914 (Given - Provider: Salome eDnton, JORGE ALBERTO) Continuous Medication Order 11/26/2015 11/27/2015 11/28/2015 sodium chloride 0.9% infusion (CANCELED) IV, at 125 mL/hr, CONTINUOUS, Starting on Thu11/26/15 at 0800, Until Thu11/27/15 at 0807, Routine 0920 (New Bag - Provider: Sammi Baez RN)1000 (Rate Verify - Provider: Sammi Baez RN)1100 (Rate Verify - Provider: Sammi Baez RN)1200 (Rate Verify - Provider: Sammi Baez RN)1300 (Rate Verify - Provider: Sammi Baez RN)1400 (Rate Verify - Provider: Sammi Baez RN)1500 (Rate Verify - Provider: Sammi Baez RN)1600 (Rate Verify - Provider: Sammi Baez RN)1700 (Rate Verify - Provider: Sammi Baez RN)1800 (Rate Verify - Provider: Sammi Baez RN) 0224 (New Bag - Provider: Jaelyn Arora RN)0816 (Stopped - Provider: Hodan Stafford, JORGE ALBERTO) documented in this encounter Care Teams Repair Operator Relationship Specialty Start Date End Date Ilan Whitley DO [address] [place] [address] PCP - General 09/07/09 07/31/20 documented as of this encounter
--- OUTSIDE RECORDS SUMMARY | 2024-10-30 02:34 | XMS_ITS | Encounter Summary ---
Author Organization [facility] Address [address] [place] [address] Care Team Providers Care Hospital Account Manager Name Role Phone Ilan Whitley DO Primary Care Provider Reason for Referral * Eval and Treat (Routine) - Closed Specialty Diagnoses / Procedures Referred By Cecile t Referred To Contact Urology Diagnoses Prostate nodule Hematuria Ilan Whitley DO [address] [place] [address] Giancarlo Azar MD [address] [address] Referral ID Status Reason Start Date Expiration Date V isits Requested Visits Authorized [id number] Closed CRS To Schedule (STL) 05/19/2012 05/20/2013 1 1 Reason for Visit * Reason Comments Physical EOV Encounter Details Date Type Department Care Team (Late st Contact Info) Description 05/19/2012 11:00 AM CDT Office Visit [facility] Internal Medicine [facility] [address] [address] [facility] [address] [place] [address] Ilan Whitley DO [address] [place] [address] HTN (hypertension) (Primary Dx); Family history of prostate cancer; Allergic rhinitis; Special screening for malignant neoplasms, colon; Malaise and fatigue; Special screening for malignant neoplasm of prostate; Hyperlipidemia; Erectile dysfunction; BPH (benign prostatic hyperplasia); Renal artery stenosis; Prostate nodule; Hematuria Social History Tobacco Use Types Packs/Day Years [...] Sign Reading Time Taken Comments Blood Pressure 128/64 05/19/2012 10:38 AM CDT Pulse - - Temperature - - Respiratory Rate - - Oxygen Saturation - - Inhaled Oxygen Concentration - - Weight 72.1 kg (159 lb) 05/19/2012 10:38 AM CDT Height 170.2 cm (5' 7 ) 05/19/2012 10:38 AM CDT Body Mass Index 24.9 05/19/2012 10:38 AM CDT documented in this encounter Progress Notes * Ilan Whitley, DO - 05/19/2012 10:56 AM CDT HISTORY OF PRESENT ILLNESS Ilan Mccauley, a 71 y.o. male. HPI Pt here for annual well visit for medicare Hyperlipidemia Cardiovascular risk analysis: LDL goal is under 100, hypertension, hyperlipidemia. Hyperlipidemia-related review: taking medications as instructed, no side effects of medications, nochest pain on exertion, no dyspnea on exertion, no edema, no chest pain on exertion, no intermittent claudication symptoms, no orthopnea or paroxysmal nocturnal dyspnea, no orthostatic dizziness or lightheadedness. Hypertension Hypertension-related review: taking medications as instructed, no side effects of medications, no chest pain on exertion, no dyspnea on exertion, no edema, no chest pain on exertion, no intermittent claudication symptoms, no orthopnea or paroxysmal nocturnal dyspnea, no orthostatic dizziness or lightheadedness. Patient Active Problem List Diagnoses Code ??? BPH (Benign Prostatic Hyperplasia) 600.90 ??? Erectile Dysfunction 607.84 ??? Hyperlipidemia 272.4 ??? Special Screening for Malignant Neoplasm of Prostate V76.44 ??? Malaise and Fatigue 780.79 ??? Special Screening for Malignant Neoplasms, Colon V76.51 ??? Allergic Rhinitis 477.9 ??? HTN (hypertension) 401.9 ??? Renal artery stenosis 440.1 ??? Family history of prostate cancer V16.42 Patient Active Problem List Diagnoses Date Noted ??? Family history of prostate cancer Overview Note: m gf ??? Renal artery stenosis 07/14/2011 Overview Note: 06/12 - mild on R ??? HTN (hypertension) ??? BPH (Benign Prostatic Hyperplasia) 09/07/2009 ??? Erectile Dysfunction 09/07/2009 ??? Hyperlipidemia 09/07/2009 ??? Special Screening for Malignant Neoplasm of Prostate 09/07/2009 ??? Malaise and Fatigue 09/07/2009 ??? Special Screening for Malignant Neoplasms, Colon 09/07/2009 ??? Allergic Rhinitis 09/07/2009 Current Outpatient Prescriptions on File Prior to Visit Medication Sig Dispense Refill ??? OMEGA-3 ACID ETHYL ESTERS (LOVAZA ORAL) Take by mouth. 1/4 gram qd ??? valsartan (DIOVAN) 320 mg Oral tablet Take 320 mg by mouth daily. 1 po qd ??? hydrochlorothiazide 25 mg Oral tablet Take 25 mg by mouth daily. 1 po qd ??? finasteride (PROSCAR) 5 mg Oral tablet Take 1 Tab by mouth daily. 90 Tab 3 ??? UBIDECARENONE/VITAMIN E MIXED (COQ10 SG 100 PO) Take by mouth. ??? cyanocobalamin (VITAMIN B-12) 1,000 mcg Oral Tab Take 1,000 mcg by mouth daily. ??? vardenafil (LEVITRA) 20 mg Oral tablet Take 1 Tab by mouth 1 time daily as needed. 15 Tab 3 Allergies Allergen Reactions ??? Codeine Nausea and Vomiting Makes patient extremely ill ??? Bystolic (Nebivolol) Bradycardia Past Medical History Diagnosis Date ??? BPH (benign prostatic hyperplasia) ??? Erectile dysfunction ??? Hyperlipidemia ??? Allergic rhinitis ??? HTN (hypertension) ??? Family history of prostate cancer m gf ??? Renal artery stenosis 06/12 mild on R Past Surgical History Procedure Date ??? Chg colonoscopy,biopsy 2007 polyps ??? Hx appendectomy ??? Stress echo w contrast 06/12 wnl ??? Us renal + doppler 06/12 R renal art stenosis L ok ??? Holter monitor wnl ??? Chg colonoscopy,biopsy 09/12 wnl, no polyps. tics Family History Problem Relation Age of Onset ??? Unknown Father ??? Hypertension Mother ??? Stroke Mother ??? Heart Disease Maternal Grandmother ??? Cancer Maternal Grandfather prostate History Substance Use Topics ??? Smoking status: Former Smoker Quit date: 11/02/1967 ??? Smokeless tobacco: Never Used ??? Alcohol Use: No No results found for this basename: HGBA1C, MICROALBUMIN, MALBUR, HEOPFY17, LDLCALC, LDLDIRECT, CREAT No results found for this basename: CHOLTOT, HDL, LDLCALC, LDLDIRECT, TRIGLYCERIDE, ALT, AST No results found for this basename: CREAT, CREATPOC, BUN, BUNPOC, NA, K, KPOC, CL, CO2, CREATCLEAR,[id number], GFR No results found for this basename: WBC, MANUALWBC, HGB, HGBPOC, HCT, HCTPOC, PLT, MCV, IRON, TIBC,FERRITIN No results found for this basename: ALT, AST, GGT, ALKPHOS, BILIDIRECT, BILIURUBINDI, BILIINDIRECT,BILITOTAL No results found for this basename: TSH, TSHULTRA, THYROIDSTIM, T3, T3FREE, C1IVUEZG, T4, T4FREE, TPO, THROIDAB, THYROIDMI Depression Risk Factor - Patient Health Questionnaire (PHQ-9) Normal Functional Ability and Level of Safety Hearing Impairment: normal Activities of Daily Living: Self-care Requires assistance with no ADLs Fall Risk None Abuse Screen None Adult Nutritional Screen No nutritional concerns Visual Acuity Not performed MiniMental Clock test was normal Advanced directive - yes REVIEW OF SYSTEMS Review of Systems Constitutional: Negative for fever, chills, diaphoresis, activity change, appetite change, fatigue and unexpected weight change. HENT: Negative for hearing loss, nosebleeds, congestion, sore throat, sneezing, trouble swallowing,neck pain and tinnitus. Eyes: Negative for visual disturbance. Respiratory: Negative for cough, shortness of breath and wheezing. Cardiovascular: Negative for chest pain, palpitations and leg swelling. Gastrointestinal: Negative for nausea, vomiting, abdominal pain, diarrhea, constipation, blood in stool and abdominal distention. Genitourinary: Negative for dysuria, urgency, frequency, hematuria, flank pain and difficulty urinating. Musculoskeletal: Negative for myalgias, joint swelling and arthralgias. Skin: Negative for rash. Neurological: Negative for tremors, weakness, numbness and headaches. Hematological: Negative for adenopathy. Does not bruise/bleed easily. Psychiatric/Behavioral: Negative for dysphoric mood and decreased concentration. The patient is notnervous/anxious. PHYSICAL EXAM Ht 5' 7 (1.702 m) Wt 159 lb (72.122 kg) BMI 24.90 kg/m2 Physical Exam Constitutional: He is oriented to person, place, and time. He appears well- developed and well-nourished. No distress. HENT: Head: Normocephalic and atraumatic. Right Ear: External ear normal. Left Ear: External ear normal. Nose: Nose normal. Mouth/Throat: Oropharynx is clear and moist. No oropharyngeal exudate. Eyes: Conjunctivae and EOM are normal. Pupils are equal, round, and reactive to light. Neck: Normal range of motion. Neck supple. No thyromegaly present. Cardiovascular: Normal rate, regular rhythm and intact distal pulses. Exam reveals no gallop and nofriction rub. No murmur heard. Pulmonary/Chest: Breath sounds normal. No respiratory distress. He has no wheezes. He exhibits no tenderness. Abdominal: Soft. Bowel sounds are normal. He exhibits no distension. There is no tenderness. There is no rebound. Genitourinary: Penis normal. Guaiac negative stool. R sided nodule Musculoskeletal: Normal range of motion. He exhibits no edema and no tenderness. Lymphadenopathy: He has no cervical adenopathy. Neurological: He is alert and oriented to person, place, and time. He displays normal reflexes. No cranial nerve deficit. Skin: Skin is warm and dry. No rash noted. Psychiatric: He has a normal mood and affect. ASSESSMENT and PLAN: 1. HTN (hypertension) (401.9) 2. Family history of prostate cancer (V16.42) 3. Allergic rhinitis (477.9) 4. Special screening for malignant neoplasms, colon (V76.51) 5. Malaise and fatigue (780.79) 6. Special screening for malignant neoplasm of prostate (V76.44) 7. Hyperlipidemia (272.4) 8. Erectile dysfunction (607.84) 9. BPH (benign prostatic hyperplasia) (600.90) 10. Renal artery stenosis (440.1) 11. Prostate nodule (600.10) AMB REFERRAL TO UROLOGY 12. Hematuria (599.70) URINALYSIS WITH REFLEX CULTURE, AMB REFERRAL TO UROLOGY Nl well exam. Will cont meds. UTD. Labs reviewed . Will fu in 1 yr documented in this encounter Plan of Treatment Upcoming Encounters Date Type Department Care Team (Late st Contact Info) Description 12/13/2024 9:45 AM LEATHER CRAFTSMAN Office Visit [facility] Oncology and Hematology - [place] [address] [facility] [address] [place] [address] Glenn Al MD [address] [facility] [address] [place] [address] Scheduled Referrals Name Type Priority Associated Diagnoses Orde r Schedule AMB REFERRAL TO UROLOGY Outpatient Referral Routine Prostate nodule Hematuria Ordered: 05/19/2012 documented as of this encounter Results * URINALYSIS WITH REFLEX CULTURE (05/19/2012 11:25 AM CDT) URINE CULTURE ORDER Not indicated [facility] Comment: Criteria for a reflex culture include one or more of the following: ??Abnormal nitrite, leukocyte esterase, WBCs or RBCs. ??Lack of qualifying criteria does not exclude the possiblity of a urinary tract infection. ??Dilute urine, drug interference, etc. may decrease the sensitivity of the criteria analytes. Urine, clean catch 05/19/2012 11:25 AM CDT 05/19/2012 3:44 PM CDT Comment:URINE VOIDED Ilan Whitley DO URINE ORDERABL ES [facility] CLIA# [id number] [address] [place] [address] documented in this encounter Visit Diagnoses Diagnosis HTN (hypertension)- Primary Unspecified essential hypertension Family history of prostate cancer Family history of malignant neoplasm of prostate Allergic rhinitis Allergic rhinitis, cause unspecified Special screening for malignant neoplasms, colon Malaise and fatigue Other malaise and fatigue Special screening for malignant neoplasm of prostate Hyperlipidemia Other and unspecified hyperlipidemia Erectile dysfunction Impotence of organic origin BPH (benign prostatic hyperplasia) Unspecified hyperplasia of prostate without urinary obstruction and other lower urinary tract symptoms (LUTS) Renal artery stenosis Atherosclerosis of renal artery Prostate nodule Nodular prostate without urinary obstruction Hematuria Hematuria, unspecified documented in this encounter Care Teams Hospital Account Manager Relationship Specialty Start Date End Date Ilan Whitley DO [address] [facility] [address] [place] [address] PCP - General 09/07/09 07/31/20 documented as of this encounter
--- OUTSIDE RECORDS SUMMARY | 2024-10-30 02:34 | XMS_ITS | Encounter Summary ---
Author Organization [facility] Address [address] [place] [address] Care Team Providers Care Ase Certified Technician Name Role Phone Ilan Whitley DO Primary Care Provider Reason for Visit * Reason Onset Date Comments Other 08/01/2011 Encounter Details Date Type Department Care Team (Late st Contact Info) Description 08/01/2011 Telephone [facility] Internal Medicine [place] [id number] [address] Ilan Whitley, DO [address] [facility] [address] [place] [address] Other Social History Tobacco Use Types Packs/Day Years [...] encounter Miscellaneous Notes * Telephone Encounter - Pat Higgins - 08/01/2011 10:27 AM CDT Pt request- copy of ins cards faxed to : #[phone]- GI doc; done.ker documented in this encounter Plan of Treatment Upcoming Encounters Date Type Department Care Team (Late st Contact Info) Description 12/13/2024 9:45 AM YARD LABOR SUPERVISOR Office Visit [facility] Oncology and Hematology - [place] [address] [facility] [address] [place] [address] Glenn Al MD [address] [facility] [address] [place] [address] documented as of this encounter Visit Diagnoses Not on filedocumented in this encounter Care Teams Ase Certified Technician Relationship Specialty Start Date End Date Ilan Whitley DO [address] [place] [address] PCP - General 09/07/09 07/31/20 documented as of this encounter
--- OUTSIDE RECORDS SUMMARY | 2024-10-30 02:34 | XMS_ITS | Encounter Summary ---
Author Organization [facility] Address [address] [place] [address] Care Team Providers Care Secure Software Assessor Name Role Phone TeofilorgaaronIlan bennett DO Primary Care Provider Reason for Visit * Reason Onset Date Comments Medication Problem 08/01/2011 Encounter Details Date Type Department Care Team (Late st Contact Info) Description 08/01/2011 Telephone [facility] Heart and Vascular At [place] [address] [address] [facility] [address] [place] [address] Eleazar Mishra MD [address] [facility] [address] [place] [address] Medication Problem Social History Tobacco Use Types [...] encounter Miscellaneous Notes * Telephone Encounter - Eleazar Mishra MD - 08/01/2011 12:40 PM CDT Called patient. He is in the ED in [place] for feeling bad after taking dose of Captopril. Took BP which was in the 150's systolic. Currently, he is awaiting results of blood work. I asked him to keep us in the loop. He stated that he would have them fax over blood work. * Telephone Encounter - Sia Gold - 08/01/2011 10:40 AM CDT Ilan called and left a message that he is feeling worse and he is at the ER in [place]. If you want to call him you can reach him on his cell phone. [phone] * Telephone Encounter - Jania Ware, RN - 08/01/2011 9:53 AM CDT Pt calls, states that TS called and left him message last night. States that he is feeling physically ill this am, like he has the flu or a hang over. Feels worse than usual. This starts about 30 minafter he takes captopril. He has decreased the dose to only 25 mg tid, but just isn't tolerating the side effects. He is also tired with decreased energy. Bp in the am 140/90's-before meds. In the calos 130/80-90's. Wants to know what to do? Would like a call back from TS. Cell phone [phone]. documented in this encounter Plan of Treatment Upcoming Encounters Date Type Department Care Team (Late st Contact Info) Description 12/13/2024 9:45 AM BASEBALL UMPIRE FOR LITTLE LEAGUE Office Visit [facility] Oncology and Hematology - [place] [address] [facility] [address] [place] [address] Glenn Al MD [address] [facility] [address] [place] [address] documented as of this encounter Visit Diagnoses Not on filedocumented in this encounter Care Teams Secure Software Assessor Relationship Specialty Start Date End Date Ilan Whitley DO [address] [place] [address] PCP - General 09/07/09 07/31/20 documented as of this encounter
--- OUTSIDE RECORDS SUMMARY | 2024-10-30 02:34 | XMS_ITS | Encounter Summary ---
Author Organization [facility] Address [address] [place] [address] Care Team Providers Care Antique Furniture Restorer Name Role Phone Ilan Whitley DO Primary Care Provider Encounter Details Date Type Department Care Team (Late st Contact Info) Description 02/20/2012 Abstract [facility] Internal Medicine [facility] [address] [address] [facility] [address] [place] [address] Ilan Whitley DO [address] [facility] [address] [place] [address] Social History Tobacco Use Types Packs/Day Years [...] st Contact Info) Description 12/13/2024 9:45 AM MILITARY TECHNICIAN Office Visit [facility] Oncology and Hematology - [place] [address] [place] [address] Glenn Al MD [address] [facility] [address] [place] [address] documented as of this encounter Procedures Procedure Name Priority Date/Time Associated Diagnosis Comments PSA Routine 02/18/2012 documented in this encounter Results * PSA (02/18/2012) Blood specimen (specimen) Stl Other CHEMISTRY ORDERABLES EXTERNAL LAB documented in this encounter Visit Diagnoses Not on filedocumented in this encounter Care Teams Antique Furniture Restorer Relationship Specialty Start Date End Date Ilan Whitley DO [address] [place] [address] PCP - General 09/07/09 07/31/20 documented as of this encounter
--- OUTSIDE RECORDS SUMMARY | 2024-10-30 02:34 | XMS_ITS | Encounter Summary ---
Author Organization [facility] Address [address] [place] [address] Care Team Providers Care Fisher Dip Net Name Role Phone TeofilorgvasylIlan DO Primary Care Provider Encounter Details Date Type Department Care Team (Late Contact Info) Description 01/12/2012 Orders Only [facility] Family Medicine [address] [address] [facility] [address] [place] [address] Provider, Abstract NO ADDRESS ON FILE Social [...] (Late Contact Info) Description 12/13/2024 9:45 AM CIRCULAR KNITTER Office Visit [facility] Oncology and Hematology - [place] [address] [facility] [address] [place] [address] Glenn Al MD [address] [facility] [address] [place] [address] documented as of this encounter Procedures Procedure Name Priority Date/Time Associated Diagnosis Comments CT ABDOMEN PELVIS W CONTRAST Routine 12/30/2011 ENDOSCOPY, COLON, DIAGNOSTIC Routine 09/05/2011 documented in this encounter Results * CT ABDOMEN PELVIS W CONTRAST (12/30/2011) Anatomical Region Laterality Modality Abdomen Other Abstract Provider CT ORDERABLES * ENDOSCOPY, COLON, DIAGNOSTIC (09/05/2011) Abstract Provider GI PROCEDURE ORDERAB LES Performing Organization Address City/State/[facility] Co de Phone Number [facility] documented in this encounter Visit Diagnoses Not on filedocumented in this encounter Care Teams Fisher Dip Net Relationship Specialty Start Date End Date Ilan Whitley DO [address] [place] [address] PCP - General 09/07/09 07/31/20 documented as of this encounter
--- OUTSIDE RECORDS SUMMARY | 2024-10-30 02:34 | XMS_ITS | Encounter Summary ---
Author Organization [facility] Address [address] [place] [address] Care Team Providers Care 911 Operator Name Role Phone Ilan Whitley DO Primary Care Provider Reason for Visit * Reason Onset Date Comments Medication Refill 04/07/2013 Encounter Details Date Type Department Care Team (Late st Contact Info) Description 04/07/2013 Refill [facility] Internal Medicine [place] [id number] [facility] [address] [place] [address] Ilan Whitley, DO [address] [facility] [address] [place] [address] Social History Tobacco Use Types [...] * Telephone Encounter - Pat Higgins - 04/07/2013 9:51 AM CDT Lat ov 05/19/12 documented in this encounter Plan of Treatment Upcoming Encounters Date Type Department Care Team (Late st Contact Info) Description 12/13/2024 9:45 AM ASSISTANT PRESS OPERATOR Office Visit [facility] Oncology and Hematology - [place] [address] [facility] [address] [place] [address] Glenn Al MD [address] [facility] [address] [place] [address] documented as of this encounter Visit Diagnoses Not on filedocumented in this encounter Care Teams 911 Operator Relationship Specialty Start Date End Date Ilan Whitley DO [address] [place] [address] PCP - General 09/07/09 07/31/20 documented as of this encounter
--- OUTSIDE RECORDS SUMMARY | 2024-10-30 02:34 | XMS_ITS | Encounter Summary ---
Author Organization [facility] Address [address] [place] [address] Care Team Providers Care Computer Network Specialist Name Role Phone Ilan Whitley DO Primary Care Provider Reason for Visit * Reason Onset Date Comments Results 07/14/2011 Encounter Details Date Type Department Care Team (Late st Contact Info) Description 07/14/2011 Telephone [facility] Internal Medicine [place] [id number] [address] Ilan Whitley DO [address] [facility] [address] [place] [address] Results Social History Tobacco Use Types Packs/Day [...] encounter Miscellaneous Notes * Telephone Encounter - Ilan Whitley DO - 07/14/2011 4:49 PM CDT dw pt * Telephone Encounter - Pat Higgins - 07/14/2011 2:32 PM CDT holter monitor results printed and on your desk for review; pt can't come in for appt tomorrow- plzcall with US results * Telephone Encounter - Ilan Whitley DO - 07/14/2011 11:34 AM CDT Will go over US tomorrow at appt And never got holter monitor pls call and get * Telephone Encounter - Pat Higgins - 07/14/2011 9:12 AM CDT Pt looking for US results? And wants to know your thoughts about his heart monitor results too- documented in this encounter Plan of Treatment Upcoming Encounters Date Type Department Care Team (Late st Contact Info) Description 12/13/2024 9:45 AM STEAMBOAT PILOT Office Visit [facility] Oncology and Hematology - [place] [address] [facility] [address] [place] [address] Glenn Al MD [address] [facility] [address] [place] [address] documented as of this encounter Visit Diagnoses Diagnosis Renal artery stenosis Atherosclerosis of renal artery documented in this encounter Care Teams Computer Network Specialist Relationship Specialty Start Date End Date Ilan Whitley DO [address] [place] [address] PCP - General 09/07/09 07/31/20 documented as of this encounter
--- OUTSIDE RECORDS SUMMARY | 2024-10-30 02:34 | XMS_ITS | Encounter Summary ---
Author Organization [facility] Address [address] [place] [address] Care Team Providers Care Furnace Builder Name Role Phone Ilan Whitley DO Primary Care Provider Reason for Visit * Reason Onset Date Comments Medication Question 08/12/2011 Encounter Details Date Type Department Care Team (Late st Contact Info) Description 08/12/2011 Telephone [facility] Heart and Vascular At [place] [address] [address] [facility] [address] [place] [address] Eleazar Mishra MD [facility] S [facility] [address] [place] [address] Medication Question Social History Tobacco Use Types Packs/Day [...] Telephone Encounter - Eleazar Mishra MD - 08/12/2011 4:07 PM CDT Called patient. We will try Procardia XL 30 mg daily. Please call it into [phone]. Precautions given. * Telephone Encounter - 08/12/2011 3:49 PM CDT Pt called in today stating that he can no longer take capoten, it makes him physically ill. Dr. Mishra wanted him to try lisinopril 2.5 mg daily. I called pt to let him know of Dr. Mishra's instructions. Pt states that he had been on lisinopril before and it did not help to lower his BP. He was taking 20 mg daily. I spoke to Dr. Mishra again, after reviewing his chart he said to start him on amlodipine 5 mg daily.. I called pt. He has been on amlodipine before. It did not help to lower his BP. I told him he needed to come into the office and made him an appointment for this Thursday. He wants to take something for BP besides the Maxide between now and then. I told him I would have Dr. Mishra call him. documented in this encounter Plan of Treatment Upcoming Encounters Date Type Department Care Team (Late st Contact Info) Description 12/13/2024 9:45 AM REGULATORY AND COMPLIANCE TECHNICIAN Office Visit [facility] Oncology and Hematology [facility] [address] [facility] 200 [place] [address] Glenn Al MD [address] [facility] [address] [place] [address] documented as of this encounter Visit Diagnoses Not on filedocumented in this encounter Care Teams Furnace Builder Relationship Specialty Start Date End Date Ilan Whitley DO [address] [place] [address] PCP - General 09/07/09 07/31/20 documented as of this encounter
--- OUTSIDE RECORDS SUMMARY | 2024-10-30 02:34 | XMS_ITS | Encounter Summary ---
Author Organization [facility] Address [address] [place] [address] Care Team Providers Care Grey Tender Name Role Phone Ilan Lawler DO Primary Care Provider Reason for Visit * Reason Onset Date Comments Results 03/08/2013 psa Encounter Details Date Type Department Care Team (Late st Contact Info) Description 03/08/2013 Telephone [facility] Internal Medicine [place] [id number] [address] Ilan Lawler, DO [address] [facility] [address] [place] [address] Results (psa) Social History Tobacco Use Types Packs/Day Years [...] Miscellaneous Notes * Telephone Encounter - Trisha Fraser - 03/08/2013 1:44 PM CDT Pt aware of results/MB * Telephone Encounter - Trisha Fraser - 03/08/2013 1:44 PM CDT Message copied by TRISHA FRASER on ThuMarch 08, 2013 1:44 PM ------ Message from: ILAN LAWLER Created: ThuMarch 08, 2013 12:36 PM psa perfect less than 0.1 documented in this encounter Plan of Treatment Upcoming Encounters Date Type Department Care Team (Late st Contact Info) Description 12/13/2024 9:45 AM NUCLEAR PLANT CONSTRUCTION WORKER Office Visit [facility] Oncology and Hematology - [place] [address] [facility] [address] [place] [address] Glenn Al MD [address] [facility] [address] [place] [address] documented as of this encounter Visit Diagnoses Not on filedocumented in this encounter Care Teams Grey Tender Relationship Specialty Start Date End Date Ilan Lawler DO [address] [place] [address] PCP - General 09/07/09 07/31/20 documented as of this encounter
--- OUTSIDE RECORDS SUMMARY | 2024-10-30 02:34 | XMS_ITS | Encounter Summary ---
Author Organization [facility] Address [address] [place] [address] Care Team Providers Care Fine Arts Instructor Name Role Phone Ilan Whitley DO Primary Care Provider Encounter Details Date Type Department Care Team (Late Contact Info) Description 07/14/2013 Abstract [facility] Internal Medicine [facility] [phone] [address] Provider, Abstract NO ADDRESS ON FILE [...] (Late Contact Info) Description 12/13/2024 9:45 AM ONCOLOGY PHYSICIAN ASSISTANT Office Visit [facility] Oncology and Hematology - [place] [address] [facility] [address] [place] [address] Glenn Al MD [address] [facility] [address] [place] [address] documented as of this encounter Visit Diagnoses Not on filedocumented in this encounter Care Teams Fine Arts Instructor Relationship Specialty Start Date End Date Ilan Whitley DO [address] [place] [address] PCP - General 09/07/09 07/31/20 documented as of this encounter
--- OUTSIDE RECORDS SUMMARY | 2024-10-30 02:34 | XMS_ITS | Encounter Summary ---
Author Organization [facility] Address [address] [place] [address] Care Team Providers Care Engraver Tender Name Role Phone Ilan Whitley DO Primary Care Provider Reason for Visit * Reason Onset Date Comments Other 09/28/2012 Encounter Details Date Type Department Care Team (Late st Contact Info) Description 09/28/2012 Telephone [facility] Internal Medicine [facility] [address] [address] Ilan Whitley, DO [address] [facility] [address] [place] [address] Other Social History Tobacco Use [...] * Telephone Encounter - Pat Higgins - 09/28/2012 3:35 PM CST Done.ker T MANAGER * Telephone Encounter - Pat Higgins - 09/28/2012 8:26 AM CST Needs any labs/tests results relating to prostrate cancer to Sandy Crocker; fx# [phone] ncbn T MANAGER documented in this encounter Plan of Treatment Upcoming Encounters Date Type Department Care Team (Late st Contact Info) Description 12/13/2024 9:45 AM FLEET MANAGER Office Visit [facility] Oncology and Hematology [facility] [address] [facility] [address] [place] [address] Glenn Al MD [address] [facility] [address] [place] [address] documented as of this encounter Visit Diagnoses Not on filedocumented in this encounter Care Teams Engraver Tender Relationship Specialty Start Date End Date Ilan Whitley DO [address] [place] [address] PCP - General 09/07/09 07/31/20 documented as of this encounter
--- OUTSIDE RECORDS SUMMARY | 2024-10-30 02:34 | XMS_ITS | Encounter Summary ---
Author Organization [facility] Address [address] [place] [address] Care Team Providers Care Miller Helper Distillery Name Role Phone Ilan Whitley DO Primary Care Provider Reason for Visit * Reason Onset Date Comments Other 01/10/2013 Encounter Details Date Type Department Care Team (Late st Contact Info) Description 01/10/2013 Telephone [facility] Internal Medicine [place] [address] [address] Ilan Whitley DO [address] [facility] [address] [place] [address] Other Social History Tobacco Use [...] * Telephone Encounter - Pat Higgins - 01/10/2013 3:56 PM CDT Pt notified.ker * Telephone Encounter - Ilan Whitley DO - 01/10/2013 3:04 PM CDT ent referral * Telephone Encounter - Pat Higgins - 01/10/2013 2:13 PM CDT X 2 - 3 weeks Has noticed he has noticed that he has had an excessive amount of salvia How to proceed? documented in this encounter Plan of Treatment Upcoming Encounters Date Type Department Care Team (Late st Contact Info) Description 12/13/2024 9:45 AM PLANT WORKER Office Visit [facility] Oncology and Hematology - [place] [address] [facility] [address] [place] [address] Glenn Al MD [address] [facility] [address] [place] [address] documented as of this encounter Visit Diagnoses Not on filedocumented in this encounter Care Teams Miller Helper Distillery Relationship Specialty Start Date End Date Ilan Whitley DO [address] [place] [address] PCP - General 09/07/09 07/31/20 documented as of this encounter
--- OUTSIDE RECORDS SUMMARY | 2024-10-30 02:34 | XMS_ITS | Encounter Summary ---
Author Organization [facility] Address [address] [place] [address] Care Team Providers Care Accounts Payable Specialist Name Role Phone Ilan Whitley DO Primary Care Provider Encounter Details Date Type Department Care Team (Late Contact Info) Description 02/02/2013 Abstract [facility] Internal Medicine [facility] [phone] [address] Provider, Abstract NO ADDRESS ON [...] (Late Contact Info) Description 12/13/2024 9:45 AM PRINCIPLE SOFTWARE ENGINEER Office Visit [facility] Oncology and Hematology - [place] [address] [facility] [address] [place] [address] Glenn Al MD [address] [facility] [address] [place] [address] documented as of this encounter Visit Diagnoses Not on filedocumented in this encounter Care Teams Accounts Payable Specialist Relationship Specialty Start Date End Date Ilan Whitley DO [address] [place] [address] PCP - General 09/07/09 07/31/20 documented as of this encounter
--- OUTSIDE RECORDS SUMMARY | 2024-10-30 02:34 | XMS_ITS | Encounter Summary ---
Author Organization [facility] Address [address] [place] [address] Care Team Providers Care Digital Marketing Consultant Name Role Phone Ilan Whitley DO Primary Care Provider Encounter Details Date Type Department Care Team (Late st Contact Info) Description 12/09/2012 Abstract [facility] Internal Medicine [facility] 320 [address] [facility] 320 [place] [address] Ilan Whitley DO [address] [facility] [address] [place] [address] Social History Tobacco Use Types [...] st Contact Info) Description 12/13/2024 9:45 AM SOCIAL SECRETARY Office Visit [facility] Oncology and Hematology - [place] [address] [place] [address] Glenn Al MD [address] [facility] [address] [place] [address] documented as of this encounter Visit Diagnoses Not on filedocumented in this encounter Care Teams Digital Marketing Consultant Relationship Specialty Start Date End Date Ilan Whitley DO [address] [facility] [address] [place] [address] PCP - General 09/07/09 07/31/20 documented as of this encounter
--- OUTSIDE RECORDS SUMMARY | 2024-10-30 02:34 | XMS_ITS | Encounter Summary ---
Author Organization [facility] Address [address] [place] [address] Care Team Providers Care Import/Export Analyst Name Role Phone GutierrezIlan DO Primary Care Provider Encounter Details Date Type Department Care Team (Latest Contact Info) Description 07/08/2012 3:27 PM CDT - 07/08/2012 11:59 PM T Hospital Encounter [facility] Laboratory Support Services [address] [place] [address] Nicki Scott PA [address] [place], [place] [id number] Urinary tract infection, site not specified Discharge Disposition: Home or Self Care Social [...] Sig Dispensed Refills Start Date End Date ciprofloxacin (CIPRO) 500 mg Oral tablet Take 1 Tab by mouth 2 times daily. Start day before catheter removal. 10 Tab 0 07/21/2012 11/26/2015 cephALEXin (KEFLEX) 500 mg Oral capsule Take 1 Cap by mouth 2 times daily. 8 Cap 0 07/21/2012 11/26/2015 carisoprodol (SOMA) 350 mg Oral tablet Take 1 Tab by mouth every 8 hours as needed for Spasm. 45 Tab 1 07/07/2012 11/26/2015 LORazepam (ATIVAN) 0.5 mg Oral tablet Take 1 Tab by mouth every 12 hours. 45 Tab 1 05/26/2012 09/07/2012 OMEGA-3 ACID ETHYL ESTERS (LOVAZA ORAL) Take by mouth. 1/4 gram qd 11/26/2015 valsartan (DIOVAN) 320 mg Oral tablet Take 320 mg by mouth daily with supper. 1 po qd 11/26/2015 hydrochlorothiazide 25 mg Oral tablet Take 12.5 mg by mouth daily with supper. 1 po qd 11/26/2015 finasteride (PROSCAR) 5 mg Oral tablet Take 1 Tab by mouth daily. 90 Tab 3 11/17/2011 07/21/2012 vardenafil (LEVITRA) 20 mg Oral tablet Take 1 Tab by mouth 1 time daily as needed. 15 Tab 3 11/08/2010 11/26/2015 cyanocobalamin (VITAMIN B-12) 1,000 mcg Oral Tab Take 1,000 mcg by mouth daily. 11/26/2015 documented as of this encounter Plan of Treatment Upcoming Encounters Date Type Department Care Team (Late st Contact Info) Description 12/13/2024 9:45 AM WOOD LATHER Office Visit [facility] Oncology and Hematology - [place] [address] [place] [address] [facility] 200 [place] [address] Glenn Al MD [address] [facility] [address] [place] [address] documented as of this encounter Procedures Procedure Name Priority Date/Time Associated Diagnosis Comments URINE CULTURE Routine 07/08/2012 4:10 PM CDT Urinary tract infection, site not specified documented in this encounter Results * URINE CULTURE (07/08/2012 4:10 PM CDT) FINAL MICRO REPORT No growth 24 hours [facility] Urine specimen (specimen) URINE SPECIMEN OBTAINED BY CLEAN CATCH PROCEDURE / Unknown 07/08/2012 4:10 PM CDT 07/08/2012 4:45 PM CDT Comment:URINE VOIDED Narrative [facility] SERVICES [facility] - 07/09/2012 3:29 PM CDT Fax to:[phone] Nicki TONEY MICROBIOLOGY - GENER AL ORDERABLES [facility] CLIA# [id number] [address] [place] [address] documented in this encounter Visit Diagnoses Diagnosis Urinary tract infection, site not specified documented in this encounter Care Teams Import/Export Analyst Relationship Specialty Start Date End Date Ilan Whitley DO [address] [place] [address] PCP - General 09/07/09 07/31/20 documented as of this encounter
--- OUTSIDE RECORDS SUMMARY | 2024-10-30 02:34 | XMS_ITS | Encounter Summary ---
Author Organization [facility] Address [address] [place] [address] Care Team Providers Care Proteomics Scientist Name Role Phone TeofiloIlan strong DO Primary Care Provider Encounter Details Date Type Department Care Team (Late st Contact Info) Description 07/01/2012 Orders Only [facility] Internal Medicine [facility] [phone] [address] Other, Stl NO ADDRESS ON FILE Social History Tobacco [...] (Late Contact Info) Description 12/13/2024 9:45 AM MASS COMMUNICATIONS INSTRUCTOR Office Visit [facility] Oncology and Hematology - [place] [address] [facility] 200 [place] [address] Glenn Al MD [address] [facility] [address] [place] [address] documented as of this encounter Procedures Procedure Name Priority Date/Time Associated Diagnosis Comments MISCELLANEOUS LAB TEST Routine 06/21/2012 documented in this encounter Results * MISCELLANEOUS LAB TEST (06/21/2012) Specimen of unknown material (specimen) Stl Other CHEMISTRY ORDERABLES [facility]# [id number] [address] [place] [address] documented in this encounter Visit Diagnoses Not on filedocumented in this encounter Care Teams Proteomics Scientist Relationship Specialty Start Date End Date Ilan Whitley DO [address] [place] [address] PCP - General 09/07/09 07/31/20 documented as of this encounter
--- OUTSIDE RECORDS SUMMARY | 2024-10-30 02:34 | XMS_ITS | Encounter Summary ---
Author Organization [facility] Address [address] [place] [address] Care Team Providers Care Membership Sales Advisor Name Role Phone Ilan Whitley DO Primary Care Provider Reason for Visit * Reason Onset Date Comments No Show 03/10/2012 12-30-11 Encounter Details Date Type Department Care Team (Late Contact Info) Description 03/10/2012 Telephone [facility] Heart and Vascular At [address] [place] [address] Lacey Crocker No Show (12-30-11) Social History Tobacco Use Types Packs/Day Years [...] encounter Miscellaneous Notes * Telephone Encounter - Lacey Crocker - 03/10/2012 11:32 AM CDT I called pt to rs an appt that ns for 12-30-11. documented in this encounter Plan of Treatment Upcoming Encounters Date Type Department Care Team (Late st Contact Info) Description 12/13/2024 9:45 AM GEOTHERMAL POWERPLANT MECHANIC HELPER Office Visit [facility] Oncology and Hematology - [place] [address] [address] Glenn Al MD [address] [facility] [address] [place] [address] documented as of this encounter Visit Diagnoses Not on filedocumented in this encounter Care Teams Membership Sales Advisor Relationship Specialty Start Date End Date Ilan Whitley DO [address] [place] [address] PCP - General 09/07/09 07/31/20 documented as of this encounter
--- OUTSIDE RECORDS SUMMARY | 2024-10-30 02:34 | XMS_ITS | Encounter Summary ---
Author Organization [facility] Address [address] [place] [address] Care Team Providers Care Surgical Brace Maker Name Role Phone Ilan Whitley DO Primary Care Provider Reason for Visit * Reason Onset Date Comments Labs Only 05/23/2013 Encounter Details Date Type Department Care Team (Late st Contact Info) Description 05/23/[address] [facility] Internal Medicine [facility] [phone] [address] Ilan Whitley DO [address] [facility] [address] [place] [address] Labs Only Social History Tobacco [...] * Telephone Encounter - Pat Higgins - 05/23/2013 4:11 PM CDT Order faxed.ker * Telephone Encounter - Ilan Whitley DO - 05/23/2013 4:07 PM CDT psa screen Screen psa * Telephone Encounter - Pat Higgins - 05/23/2013 2:51 PM CDT wants quarterly psa test ordered - Needs orders sent to [facility]; # [phone] Any other labs? ncbn documented in this encounter Plan of Treatment Upcoming Encounters Date Type Department Care Team (Late st Contact Info) Description 12/13/2024 9:45 AM TELERADIOLOGIST Office Visit [facility] Oncology and Hematology [facility] [address] [facility] 200 [place] [address] Glenn Al MD [address] [facility] [address] [place] [address] documented as of this encounter Visit Diagnoses Diagnosis Prostate cancer- Primary Malignant neoplasm of prostate Special screening for malignant neoplasm of prostate Elevated PSA Elevated prostate specific antigen (PSA) documented in this encounter Care Teams Surgical Brace Maker Relationship Specialty Start Date End Date Ilan Whitley DO [address] [place] [address] PCP - General 09/07/09 07/31/20 documented as of this encounter
--- OUTSIDE RECORDS SUMMARY | 2024-10-30 02:34 | XMS_ITS | Encounter Summary ---
Author Organization [facility] Address [address] [place] [address] Care Team Providers Care Perioperative Nurse Name Role Phone TeofilorgaaronIlan bennett DO Primary Care Provider Reason for Visit * Reason Onset Date Comments Prostate Cancer 07/21/2012 Encounter Details Date Type Department Care Team (Late st Contact Info) Description 07/21/2012 Telephone [facility] ST Cancer and Breast Med Onc [facility] [address] [address] Steph García RN Prostate Cancer Social History Tobacco Use Types Packs/Day Years [...] encounter Miscellaneous Notes * Telephone Encounter - Steph García RN - 07/21/2012 10:36 AM CDT Cancer Information Note: Informed patient of some of the services available at the Cancer Information Center as well as the Prostate Cancer Support Group. Encouraged to also check with his local [place] [employer] chapter to see what resources are available in his community (lives in [facility]). Support provided. documented in this encounter Plan of Treatment Upcoming Encounters Date Type Department Care Team (Late st Contact Info) Description 12/13/2024 9:45 AM ADULT NEUROPSYCHOLOGIST Office Visit [facility] Oncology and Hematology - [place] [address] [facility] [address] [place] [address] Glenn Al MD 2[address] [facility] [address] [place] [address] documented as of this encounter Visit Diagnoses Not on filedocumented in this encounter Care Teams Perioperative Nurse Relationship Specialty Start Date End Date Ilan Whitley DO [address] [place] [address] PCP - General 09/07/09 07/31/20 documented as of this encounter
--- OUTSIDE RECORDS SUMMARY | 2024-10-30 02:34 | XMS_ITS | Encounter Summary ---
Author Organization [facility] Address [address] [place] [address] Care Team Providers Care Physician/Ophthalmologist Name Role Phone Ilan Whitley DO Primary Care Provider Reason for Visit * Reason Onset Date Comments Poison Anna/Poison [place]/Poison [place] Exposure 02/01 Encounter Details Date Type Department Care Team (Late st Contact Info) Description 02/26/2012 Telephone [facility] Internal Medicine [facility] 320 [address] [facility] 320 [place] [address] Ilan Whitley DO 15[address] [facility] [address] [place] [address] Poison Anna/Poison [place]/Poison [place] Exposure Social History Tobacco Use Types Packs/Day Years [...] * Telephone Encounter - Pat Higgins - 02/26/2012 9:26 AM CDT Exposed to poison anna 2 days ago Wants med - ncbn documented in this encounter Plan of Treatment Upcoming Encounters Date Type Department Care Team (Late st Contact Info) Description 12/13/2024 9:45 AM VOLLEYBALL REFEREE Office Visit [facility] Oncology and Hematology - [place] [address] [facility] [address] [place] [address] Glenn Al MD [address] [facility] [address] [place] [address] documented as of this encounter Visit Diagnoses Not on filedocumented in this encounter Care Teams Physician/Ophthalmologist Relationship Specialty Start Date End Date Ilan Whitley DO [address] [place] [address] PCP - General 09/07/09 07/31/20 documented as of this encounter
--- OUTSIDE RECORDS SUMMARY | 2024-10-30 02:34 | XMS_ITS | Encounter Summary ---
Author Organization [facility] Address [address] [place] [address] Care Team Providers Care Wire Inserter Name Role Phone Ilan Whitley DO Primary Care Provider Reason for Visit * Reason Onset Date Comments Labs Only 03/12/2012 Encounter Details Date Type Department Care Team (Late st Contact Info) Description 03/12/2012 Telephone [facility] Internal Medicine [place] [id number] [place] [phone] Ilan Whitley DO [address] [facility] [address] [place] [address] Labs Only Social History Tobacco [...] encounter Miscellaneous Notes * Telephone Encounter - Jessa Rosales - 03/12/2012 3:19 PM CDT Placed orders and faxed over to [phone]/az * Telephone Encounter - Ilan Whitley DO - 03/12/2012 3:05 PM CDT Medicare cpe labs Minus psa * Telephone Encounter - Pat Higgins - 03/12/2012 2:43 PM CDT Pt has already had PSA: Wants annual lab work orders sent to [facility]; Has PE appt in May; but seeing cardio next week; ncbn documented in this encounter Plan of Treatment Upcoming Encounters Date Type Department Care Team (Late st Contact Info) Description 12/13/2024 9:45 AM METAL REED TUNER Office Visit [facility] ([facility] Oncology and Hematology [facility] [address] [facility] [address] [place] [address] Glenn Al MD [address] [facility] [address] [place] [address] documented as of this encounter Visit Diagnoses Diagnosis Hyperlipidemia Other and unspecified hyperlipidemia Malaise and fatigue Other malaise and fatigue documented in this encounter Care Teams Wire Inserter Relationship Specialty Start Date End Date Ilan Whitley DO [address] [place] [phone] PCP - General 09/07/09 07/31/20 documented as of this encounter
--- OUTSIDE RECORDS SUMMARY | 2024-10-30 02:34 | XMS_ITS | Encounter Summary ---
Author Organization [facility] Address [address] [place] [address] Care Team Providers Care Market Stall Vendor Name Role Phone GutierrezIlan DO Primary Care Provider Encounter Details Date Type Department Care Team (Latest Contact Info) Description 07/08/2012 11:59 AM CDT - 07/08/2012 11:59 PM CDT Hospital Encounter [facility] [address] [place] [phone] Giancarlo Azar MD [address] [facility] [address] [place] [address] Urinary tract infection, site not specified Discharge [...] Sign Reading Time Taken Comments Blood Pressure 129/81 07/08/2012 12:30 PM CDT Pulse 69 07/08/2012 12:30 PM CDT Temperature - - Respiratory Rate - - Oxygen Saturation 97% 07/08/2012 12:30 PM CDT Inhaled Oxygen Concentration - - Weight 71.2 kg (157 lb) 07/08/2012 12:30 PM CDT Height 168.9 cm (5' 6.5 ) 07/08/2012 12:30 PM CD T Body Mass Index 24.96 07/08/2012 12:30 PM CDT documented in this encounter Medications at Time [...] daily. 11/26/2015 documented as of this encounter H&P Notes * Nicki Scott - 07/19/2012 8:[address] [place] [address], [place] [address] History and Physical CSN: [id number] REASON FOR ADMISSION Prostate cancer. HISTORY OF PRESENT ILLNESS This is a 71-year-old male who was diagnosed in June 2012 with prostate cancer who has elected toproceed with a da Mary radical prostatectomy with bilateral pelvic lymph node sampling. He had a [place] 8 cancer at the [facility], [facility], [facility] and [place]. This was confirmed by Jennifer. His prostate volume was 25 mL and his PSA was 1.6. 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 His preoperative urine culture was negative and his impotent survey score is 44/75. REVIEW OF SYSTEMS He denies fever, chills, chest pain, shortness of breath, nausea, vomiting, diarrhea, constipation,or headaches. PAST MEDICAL HISTORY Hypertension kidney stones, prostate cancer, microscopic hematuria. PAST SURGICAL HISTORY Appendectomy, cystoscopy. MEDICATIONS 1. Hydrochlorothiazide. 2. Lovaza 1 gram 2 tabs twice a day. 3. Vitamin B12. 4. Coenzyme Q. 5. Diovan 320 mg daily. 6. Proscar 5 mg daily. ALLERGIES CODEINE, OXYCODONE AND MORPHINE CAUSE NAUSEA. FAMILY HISTORY Prostate cancer, strokes. SOCIAL HISTORY He is a former smoker, smokes 1-2 packs per day for more than 20 years. He is . Denies alcohol and is retired. PHYSICAL EXAM GENERAL: Well-developed, well-nourished male in no acute distress. HEENT: Unremarkable. NECK: Supple. LUNGS: Clear. HEART: Regular rate and rhythm. ABDOMEN: Soft, nontender, nondistended. No masses. NEUROLOGIC: Alert oriented x3. ASSESSMENT Prostate cancer. PLAN The patient wishes to proceed with a da Mayr radical prostatectomy with bilateral pelvic lymph node sampling. Risks are including but not limited to, bleeding, infection, scarring, risk of anesthesia, risk of blood transfusions, impotence, incontinence, possible injury to surrounding structures orthe need for diverting colostomy. He is aware of the general risks including heart attack, stroke, DVT, PE, and as well as increased operative time, CO2 embolism, impotence, and incontinence. He also wishes to proceed with a pelvic lymph node dissection. Risks are included but not limited to vascular injury requiring repair, obturator nerve injury or palsy, or possible lymphocele formation.All questions were answered and he wishes to proceed. KLC:MEDQ DID: [id number] Dictated by: Nicki Scott PA-C documented in this encounter Procedure Notes * Stmia Burgess, [facility] - 07/14/2012 4:54 PM CDTAssociated Order(s): EKG 12-LEAD documented in this encounter OR Notes * Linda-OP - Carrie Skinner - 07/09/2012 7:33 AM CDT Labs faxed to PCP and surgeon, shown to member of anesthesia. NA+ DOS * OR Anesthesia - Nestor Wen PA - 07/08/2012 1:03 PM CDT Pre-Procedure Anesthesiology Consultation and Evaluation (PACE) Service 07/08/2012 1:03 PM Name: Ilan Mccauley Age: 71 y.o. Sex: male CSN: [id number] Procedure: Prostatectomy Radical Davinci Si Laparoscopic [695] Surgeons/Assistants: * Doe * .ptame Allergies Allergen Reactions ??? Codeine Nausea and Vomiting Makes patient extremely ill ??? Bystolic (Nebivolol) Bradycardia Current Outpatient Prescriptions Medication Sig Dispense Refill ??? carisoprodol (SOMA) 350 mg Oral tablet Take 1 Tab by mouth every 8 hours as needed for Spasm. 45 Tab 1 ??? valsartan (DIOVAN) 320 mg Oral tablet Take 320 mg by mouth daily with supper. 1 po qd ??? hydrochlorothiazide 25 mg Oral tablet Take 12.5 mg by mouth daily with supper. 1 po qd ??? finasteride (PROSCAR) 5 mg Oral tablet Take 1 Tab by mouth daily. 90 Tab 3 ??? LORazepam (ATIVAN) 0.5 mg Oral tablet Take 1 Tab by mouth every 12 hours. 45 Tab 1 ??? OMEGA-3 ACID ETHYL ESTERS (LOVAZA ORAL) Take by mouth. 1/4 gram qd ??? vardenafil (LEVITRA) 20 mg Oral tablet Take 1 Tab by mouth 1 time daily as needed. 15 Tab 3 ??? UBIDECARENONE/VITAMIN E MIXED (COQ10 SG 100 PO) Take by mouth. ??? cyanocobalamin (VITAMIN B-12) 1,000 mcg Oral Tab Take 1,000 mcg by mouth daily. Told patient to take the following medications AM DOS with small sip of water: Nancy Colindres Told patient to stop the following medications on : nsaids, Patient Active Problem List Diagnoses Date Noted ??? Prostate cancer ??? Elevated PSA Overview Note: s/p bx - cancer ??? Prostate cancer 06/24/2012 ??? Family history of prostate cancer Overview [...] Neoplasms, Colon 09/07/2009 ??? Allergic Rhinitis 09/07/2009 Past Medical History Diagnosis Date ??? BPH (benign prostatic hyperplasia) ??? Erectile dysfunction ??? Allergic rhinitis ??? Family history of prostate cancer m gf ??? Renal artery stenosis 06/12 mild on R ??? Prostate cancer 06/13 ??? Elevated PSA 06/13 s/p bx - cancer ??? HTN (hypertension) 2009 ??? Hyperlipidemia diet controlled ??? Anxiety stress related ??? Calculus of kidney currently found through cat scan ??? Temporomandibular joint disorders, unspecified ??? Atrial fibrillation ?2012 pt states may be inaccurate dx as it showed up once on a test but not since Past Surgical History Procedure Date ??? Chg colonoscopy,biopsy 2007 polyps ??? Stress echo w contrast 06/12 wnl ??? Us renal + doppler 06/12 R renal art stenosis L ok ??? Holter monitor wnl ??? Chg colonoscopy,biopsy 09/12 wnl, no polyps. tics ??? Biopsy prostate 06/13 cancer ??? Hx appendectomy age 14 History Substance Use Topics ??? Smoking status: Former Smoker Quit date: 11/02/1967 ??? Smokeless tobacco: Never Used ??? Alcohol Use: No Family History Problem Relation Age of Onset ??? Unknown Father ??? Hypertension Mother ??? Stroke Mother ??? Heart Disease Maternal Grandmother ??? Cancer Maternal Grandfather prostate Previous Anesthesia Problems/Concerns: No anesthesia problems/complications History of PONV No Review of Systems Cardiovascular: negative for chest pain, chest pressure/discomfort, exertional chest pressure/discomfort, palpitations, shortness of breath/dyspnea. Exercise Tolerance: able to go for walks, runs, and steps without chest pain or SOB Gastrointestinal: negative. Genitourinary:negative. Respiratory: negative. GRIFFIN -no Snores- yes Smoker-no Musculoskeletal: negative Neurological: negative Endocrine negative Renal:negative Hematology/Oncology:Prostate CA PHYSICAL EXAM BP 129/81 Pulse 69 Ht 5' 6.5 (1.689 m) Wt 157 lb (71.215 kg) BMI 24.96 kg/m2 SpO2 97% Weight: Weight: 157 lb (71.215 kg) (07/08/12 1230) Height: Ht Readings from Last 1 Encounters: 07/08/12 5' 6.5 (1.689 m) BMI: Body mass index is 24.96 kg/(m^2). General Appearance: Alert, oriented, no acute distress Airway: normal range of motion; Airway Class: II (soft palate, uvula, fauces visible); Special Considerations None Dentition: Normal good Lungs: clear to auscultation bilaterally, normal respiratory effort Heart: regular rate and rhythm, S1, S2 normal, no murmur, click, rub or gallop Neuro: alert, oriented x 3, no defects noted in general exam. Extremities: extremities normal, atraumatic, no cyanosis or edema LABS No results found for this basename: WBC, MANUALWBC, HGB, HGBPOC, HCT, HCTPOC, PLT, MCV No results found for this basename: NA, K, CL, CO2, CA, BUN, CREAT, GLUCOSE, ANIONGAP, BCRATIO No results found for this basename: INR, PT, PROTIMEPOC No results found for this basename: HCGURPOC, HCGQUALUR, HCGQUAL, HCGQUANT, HCGINTACT EK/12 normal sinus rhythm LAD No significant change from 06/12 Other Studies/Considerations: Cardiac studies 01/10 Holter/Event Monitor Only recorded Normal Sinus rhythm 06/12 Cardiac Stress Study Conclusions: Summary: - Procedure narrative: Transthoracic [...] Normal study. Normal study after maximal exercise. Risks/Alternatives discussed. Questions solicited and answered. Yes Postop pain management discussed yes Smoking/Tobacco Counseling: None Recommendations:None REPORT AND NECESSARY FOLLOW-UP History and physical performed in [facility]; tests (ECG, blood work) reviewed. Abnormal Results Found: no Further Testing or Evaluation Required: no Final [facility] Review: May proceed with procedure/surgery: yes DAWNA Aiken 1:03 PM 07/08/2012 * Linda-OP - Brittanie Epperson - 07/08/2012 12:31 PM CDT Patient instructed to use the provided Chlorhexidine soap sponge(s) to clean the surgical site while in the shower the night before surgery and repeat same instructions the morning of surgery. Written detailed instructions reviewed with patient. Patient verbalized understanding of shower and soaps.Pt aware not to shave the surgical site. Patient instructed to stop taking vitamins and herbal supplements 7 days prior to scheduled surgery date. Patient also instructed to stop taking aspirin and NSAIDs (unless instructed otherwise by surgeon) 7 days prior to their scheduled surgery date. Patientwas instructed to avoid shaving the surgical site for 24 hours prior to surgery. Patient instructedto not use/wear lotion, oils, cream or deodorant day of surgery. documented in this encounter Plan of Treatment Upcoming Encounters Date Type Department Care Team (Late st Contact Info) Description 12/13/2024 9:45 AM SALESPERSON YARD GOODS Office Visit [facility] Oncology and Hematology - [place] [address] [place] [address] Glenn Al MD [address] [facility] [address] [place] [address] Scheduled Orders Name Type Priority Associated Diagnoses Orde r Schedule URINE CULTURE Microbiology Routine Urinary tract infection, site not specified ONE TIME for 1 Occurrences starting 07/08/2012 until 07/08/2012 documented as of this encounter Procedures Procedure Name Priority Date/Time Associated Diagnosis Comments EKG 12-LEAD Routine 07/14/2012 4:54 PM CDT HEMOGLOBIN AND HEMATOCRIT Routine 07/08/2012 12:25 PM CDT TYPE AND SCREEN Routine 07/08/2012 12:25 PM CDT BASIC METABOLIC PANEL Routine 07/08/2012 12:25 PM CDT documented in this encounter Results * EKG 12-LEAD (07/14/2012 4:54 PM CDT) Narrative Transcriptions Stl Scanning, Him - 07/14/2012 4:54 PM CDT Giancarlo Azar MD ECG ORDERABLES * TYPE AND SCREEN (07/08/2012 12:25 PM CDT) SPECIMEN LIFE 3 days from OR date [facility] HISTORY CHECK No Historical ABO/Rh [facility] ANTIBODY SCREEN Negative [facility] ABO/RH TYPE A Positive [facility] Blood specimen (specimen) 07/08/2012 12:25 PM CDT 07/08/2012 2:26 PM CDT Giancarlo Azar MD BLOOD BANK ORDERABLE S INTERFACE SYSTEM Refer to clinic/hospital department [facility] CLIA# [id number] [address] [place] [address] * (ABNORMAL) BASIC METABOLIC PANEL (07/08/2012 12:25 PM CDT) SODIUM 133(L) 135 - 145 mmol/L [facility] POTASSIUM 4.1 3.5 - 4.9 mmol/L [facility] CHLORIDE 96 96 - 108 mmol/L [facility] CO2 25 22 - 30 mmol/L [facility] CALCIUM 9.3 8.6 - 10.2 mg/dL [facility] BUN 15 6 - 20 mg/dL [facility] CREATININE 0.81 0.67 - 1.17 mg/dL [facility] GLUCOSE 85 65 - 99 mg/dL [facility] GFR, >60 >=60 mL/min/1. 7 sq meter [facility] GFR >60 >=60 mL/min/1. 7 sq meter [facility] Comment: GFR is calculated using the IDMS-Traceable Modification of Diet in Renal Disease (MDRD) Study formula and is only valid for patients 18 years or older. Further interpretative information is available in the Laboratory Services Policy Manual on the [facility] Intranet at: [email or web address]/ Blood specimen (specimen) 07/08/2012 12:25 PM CDT 07/08/2012 2:26 PM CDT Giancarlo Azar MD CHEMISTRY ORDERABLES [facility] CLIA# [id number] [address] [place] [address] * HEMOGLOBIN AND HEMATOCRIT (07/08/2012 12:25 PM CDT) HEMOGLOBIN 14.2 13.6 - 16.5 g/dL [facility] HEMATOCRIT 40.9 40.0 - 48.0 % [facility] Blood specimen (specimen) 07/08/2012 12:25 PM CDT 07/08/2012 2:26 PM CDT Narrative [facility] - 07/08/2012 2:47 PM CDT 11 Giancarlo Azar MD HEMATOLOGY ORDERABLE S [facility] CLIA# [id number] [address] [place] [address] documented in this encounter Visit Diagnoses Diagnosis Urinary tract infection, site not specified documented in this encounter Care Teams Market Stall Vendor Relationship Specialty Start Date End Date Ilan Whitley, [address] [place] [phone] PCP - General 09/07/09 07/31/20 documented as of this encounter
--- OUTSIDE RECORDS SUMMARY | 2024-10-30 02:34 | XMS_ITS | Encounter Summary ---
Author Organization [facility] Address [address] [place] [address] Care Team Providers Care Overnight Caregiver Name Role Phone Ilan Lawler DO Primary Care Provider Reason for Visit * Reason Onset Date Comments Results 10/29/2012 lab results Encounter Details Date Type Department Care Team (Late st Contact Info) Description 10/29/2012 Telephone [facility] Internal Medicine [facility] [phone] [address] Ilan Lawler, DO [address] [facility] [address] [place] [address] Results (lab results) Social History Tobacco Use Types Packs/Day Years [...] encounter Miscellaneous Notes * Telephone Encounter - Bandar Rosales - 10/29/2012 9:47 AM CST Pt aware/az TY SITTER * Telephone Encounter - Bandar Rosales - 10/29/2012 9:46 AM CST Message copied by BANDAR ROSALES on ThuOct 29, 2012 9:46 AM ------ Message from: ILAN LAWLER Created: ThuOct 29, 2012 9:34 AM Thyroid nl No anemai Iron is ok as well TY SITTER documented in this encounter Plan of Treatment Upcoming Encounters Date Type Department Care Team (Late st Contact Info) Description 12/13/2024 9:45 AM SAFETY SITTER Office Visit [facility] Oncology and Hematology - [place] [address] [facility] [address] [place] [address] Glenn Al MD [address] [facility] [address] [place] [address] documented as of this encounter Visit Diagnoses Not on filedocumented in this encounter Care Teams Overnight Caregiver Relationship Specialty Start Date End Date Ilan Lawler DO [address] [place] [phone] PCP - General 09/07/09 07/31/20 documented as of this encounter
--- OUTSIDE RECORDS SUMMARY | 2024-10-30 02:34 | XMS_ITS | Encounter Summary ---
Author Organization [facility] Address [address] [place] [address] Care Team Providers Care Associate Professor Of History Name Role Phone Gutierrez Nabor Sousa Primary Care Provider Reason for Visit * Auth/Cert - Closed Specialty Diagnoses / Procedures Referred By Cecile t Referred To Contact General Surgery Diagnoses PROSTATE CANCER Procedures PROSTATECTOMY RADICAL DAVINCI SI LAPAROSCOPIC [facility] [address] [place] [address] Referral ID Status Reason Start Date Expiration Date Visits Re quested Visits Authorized [id number] Closed 1 1 Encounter Details Date Type Department Care Team (Latest Contact Info) Description 07/20/2012 7:54 AM CDT - 07/21/2012 10:38 AM CDT Hospital Encounter [facility] Interventional Unit [place] [address] [place] [address] Giancarlo Dominguez MD [address] [address] Prostate cancer Discharge Disposition: Home or Self [...] Sign Reading Time Taken Comments Blood Pressure 107/61 07/21/2012 6:42 AM CDT Pulse 70 07/21/2012 6:38 AM CDT Temperature 37.1 ??C (98.7 ??F) 07/21/2012 6:38 AM CD T Respiratory Rate 16 07/21/2012 6:38 AM CDT Oxygen Saturation 99% 07/21/2012 6:38 AM CDT Inhaled Oxygen Concentration - - Weight 69.9 kg (154 lb) 07/20/2012 8:02 AM CDT Height 168.9 cm (5' 6.5 ) 07/08/2012 12:31 PM CD T Body Mass Index 24.48 07/08/2012 12:31 PM CDT documented in this encounter Discharge Summaries * Nicki Scott PA - 07/21/2012 7:19 AM CDT [facility] Discharge Summary Patient: Nabor Mccauley / 71 y.o. / male : 1940 CSN: [id number] Admission date: 07/20/2012 Discharge date: 07/21/2012 Principal Diagnosis: Prostate Cancer (185) Secondary Diagnosis: None Patient Active Problem List Diagnoses Code ??? BPH (Benign Prostatic Hyperplasia) 600.90 ??? Erectile Dysfunction 607.84 ??? Hyperlipidemia 272.4 ??? Special Screening for Malignant Neoplasm of Prostate V76.44 ??? Malaise and Fatigue 780.79 ??? Special Screening for Malignant Neoplasms, Colon V76.51 ??? Allergic Rhinitis 477.9 ??? HTN (hypertension) 401.9 ??? Renal artery stenosis 440.1 ??? Family history of prostate cancer V16.42 ??? Prostate cancer 185 ??? Prostate cancer 185 ??? Elevated PSA 790.93 Procedures Performed while in the Hospital: Da Mary laparoscopic radical prostatectomy with bilateral lymph ndoes Attending Physician: Giancarlo Dominguez MD Consultations: None Presenting History: Please see H&P for details. Nabor Mccauley is a 71 y.o. male who presented with prostate cancer. Hospital Course: Please see daily progress notes for details. The patient was admitted to the hospital and underwenta da Mary radical prostatectomy With bilateral lymph nodes. His postoperative course was unremarkable. He was started on a clear liquid diet on his post-op day and advanced to a full liquid without difficulty. He was started ambulating on his post-op day and steadily advanced his activity without problems. He was taught bryant catheter care and leg bag changes. He was felt stable and ready for discharge on POD #1. Disposition: The patient will be discharged to Home. The patient will return for a follow-up visit in the officein 1 week. Medications at Discharge: Medications prior to admission that will be resumed at discharge: Medication Sig Dispense Refill ??? carisoprodol (SOMA) 350 mg Oral tablet Take 1 Tab by mouth every 8 hours as needed for Spasm. 45 Tab 1 ??? OMEGA-3 ACID ETHYL ESTERS (LOVAZA ORAL) Take by mouth. 1/4 gram qd ??? valsartan (DIOVAN) 320 mg Oral tablet Take 320 mg by mouth daily with supper. 1 po qd ??? hydrochlorothiazide 25 mg Oral tablet Take 12.5 mg by mouth daily with supper. 1 po qd ??? UBIDECARENONE/VITAMIN E MIXED (COQ10 SG 100 PO) Take by mouth. ??? cyanocobalamin (VITAMIN B-12) 1,000 mcg Oral Tab Take 1,000 mcg by mouth daily. ??? LORazepam (ATIVAN) 0.5 mg Oral tablet Take 1 Tab by mouth every 12 hours. 45 Tab 1 ??? vardenafil (LEVITRA) 20 mg Oral tablet Take 1 Tab by mouth 1 time daily as needed. 15 Tab 3 New medications prescribed at discharge: Medication Sig Dispense Refill ??? ciprofloxacin (CIPRO) 500 mg Oral tablet Take 1 Tab by mouth 2 times daily. Start day before catheter removal. 10 Tab 0 ??? cephALEXin (KEFLEX) 500 mg Oral capsule Take 1 Cap by mouth 2 times daily. 8 Cap 0 Discharge Labs: Lab Results Component Value Date HEMOGLOBIN 11.0* 07/21/2012 HEMATOCRIT 33.8* 07/21/2012 Lab Results Component Value Date SODIUM 137 07/21/2012 POTASSIUM 3.6 07/21/2012 CHLORIDE 101 07/21/2012 CO2 31* 07/21/2012 CALCIUM 7.5* 07/21/2012 BUN 9 07/21/2012 CREATININE 0.75 07/21/2012 GLUCOSE 90 07/21/2012 Diet: regular Other Discharge Instructions: Given to patient with Patient's DC instructions. Nicki Scott PA-C/ Giancarlo Dominguez MD documented in this encounter Discharge Instructions * Discharge Instructions* Ingrid Gutiérrez RN - 07/21/2012 10:26 AM CDT [facility], [place] Office - [facility], [facility] Office - [facility] Place - , [phone], or [phone] Exchange: Call the office number and you will be forwarded to the Exchange when the office is closed [place] - [facility] - [phone] [facility] - POST DAVINCI RADICAL PROSTATECTOMY SURGERY INSTRUCTION SHEET CATHETER CARE: Your catheter is very important to allow healing of the bladder and urethra. You mayuse either leg bags or external bags. Drain before the bag gets too full. The tip of the penis may get sore from the catheter rubbing it. Use plain soap and water to wash this area daily or more often as needed. You may apply Neosporin or bacitracin ointment daily and as needed. WOUND: Your incisions are sealed from outside bacteria within two days of surgery. Nonetheless, youshould protect it from dirt and soiling for the first ten days or so. The incisions will be tender for the first week and the edges should NOT be pulled apart. You may remove your Band-Aids or dressings on Post- operative day 2. If you had a drain, you may need to place a 4x4 guaze with tape for several days or so until the incision closes. DIET: You may return to your normal diet. Alcohol, spicy foods, and drinks with caffeine may cause some irritation or sense of the need to void despite the fact that the catheter is emptying the bladder. If these foods do not bother you, however, there is no reason to avoid them in moderation. Moreimportantly, keep your urine flowing freely. Drink plenty of fluids during the day (8-10 glasses). The type of fluid (except alcohol) is not as important as is the amount. Water is best, but juices, coffee, tea, soda are all acceptable. ACTIVITY: Your physical activity is to be restricted, especially during the first two weeks you arehome. You are encouraged to walk as much as you can tolerate. During this time use the following guidelines: a. No heavy lifting greater than 10-15 lbs. for 4 weeks b. No driving or machinery while having pain and taking narcotic pain meds. Usually until bryant catheter is out. c. Limit long car rides. d. No strenuous exercise. e. You may climb stairs, but be careful. BOWELS: The rectum and prostate are next to each other and any very large and hard stools that require straining to pass can cause bleeding. You may take stool softeners (i.e. Colace, Surfak, etc.) as needed. A bowel movement every other day is reasonable. Use a mild laxative if needed and call if you are having problems. (i.e. MOM 2-3 tbsp. Or 2 Dulcolax tabs). Patients sometimes develop diarrhea probably secondary to antibiotics. You may use Kaopectate as directed (avoid Imodium). Eating yogurt with active yeast cultures can help. If it persists, please call. DO NOT strain to have a bowel movement as this may break the sutures connecting your bladder and urethra which may require leaving your catheter in longer (3-4+ weeks). MEDICATION: You should resume your pre-surgery medication(s) unless told not to. You may be discharged with Iron tablets to build up your blood count. These may cause constipation, and will cause dark stools. You will also be discharged with pain pills (i.e. Darvocet, Demerol, Percocet, Vicodin) for post-operative pain control from the incision and catheter. Tylenol (acetaminophen) or Advil (ibupr ofen) which have no narcotics may be used if the pain is not too bad (and you can tolerate those medications!). HYGIENE: You may shower on Post-operative day #2. Avoid baths for 4 weeks. PROBLEMS YOU SHOULD REPORT TO US: a. Fevers over 101 degrees Fahrenheit. b. Heavy bleeding or clots. You will notice blood in and around your catheter and in the bag which is normal, but if it is excessive or the catheter becomes plugged and not draining, please call. c. Drug reactions (hives, rash, nausea, vomiting, diarrhea). d. CALL IMMEDIATELY IF THE CATHETER FALLS OUT OR STOPS DRAINING. FOLLOW-UP: You will need a follow-up appointment in approximately 1-2 weeks. Call the office and schedule an appointment. Most people will not have good urinary control at first. Come to the office with a small supply of adult diapers or pads (ATTENDS or DEPENDS) that can be purchased at many stores (i.e. [employer], drug [employer], etc.). Pelvic Muscle Exercises To Improve Bladder Control Pelvic muscle exercises strengthen the group of muscles called the pelvic floor muscles. These muscles relax and contract under your command to control the opening and closing of your bladder/sphincter. When these muscles are weak, urine leakage may result. However, you can exercise them and in many cases, regain your bladder control. You need to build the strength and the endurance of your muscles. THIS REQUIRES REGULAR EXERCISE. Exercise #1 (Kegel Exercises) Begin by locating the sphincter muscles to be exercised (Kegel exercises): 1. As you begin urinating, try to stop or slow the urine stream WITHOUT tensing the muscles of yourlegs, buttocks or abdomen. This is very important. Using other muscles will defeat the purpose of the exercise. 2. When you are able to stop or slow the stream of urine, you know that you have located the correct muscles. Feel the sensation of the muscles pulling inward and upward. 3. Once you figure out the correct muscles, discontinue the practice of stopping your urine stream. TIPS ?? You may squeeze the area of the rectum to tighten the anus as if trying not to pass gas. This also helps locate the correct muscles. ?? Remember NOT to tense the abdominal, buttock or thigh muscles. Now You Are Ready to Exercise Regularly: 1. After you have located the correct muscles, set aside time each day for 3 exercise sessions (morning, midday and evening). 2. Squeeze your muscles to the slow count of five. Then, relax the muscle completely to the slow count of five. The five second contraction and the five second relaxation make one set. 3. Your goal is to hold each contraction for five seconds, to relax for five seconds, and to complete 3-4 sets in each of the three exercise sessions per day. Exercise #2 (Inner thigh/abduction Exercises--???The Ball?? ) 1. Begin by placing a ball between your thighs. 2. Squeeze you are thighs inward to the slow count of five. Then, relax the muscles completely to the slow count of five. 3. Your goal is to hold each contraction for five seconds, to relax for five seconds and to complete 3-4 sets in each of the three exercise sessions per day. Exercise #3 (Outer thighs/adduction exercises-- the Belt ) 1. Begin by placing a belt or elastic band around your knees which will provide resistance. 2. Squeeze your thighs outward to the slow count of five. Then, relax the muscles completely to theslow count of five. 3. Your goal is to hold each contraction for five seconds, to relax for five seconds and to complete 3-4 sets in each of the three exercise sessions per day. TIPS ?? When your pelvic floor muscles are very weak, you should begin by sherry the muscles for only 2-3 seconds. Begin doing what you can and continue faithfully. In a few weeks, you should be ableto increase the amount of time you are able to hold the contraction and the number of exercise setsyou are able to do. Your goal is to hold each contraction for five seconds, to relax for five seconds and to complete 3-4 sets in each of the three exercise sessions per day. ?? If you are unsure that you are sherry the correct muscles, at your next exam, ask your urologist to help you identify the proper muscle contraction. ?? Use daily activities such as eating meals, watching the news, waking up, going to bed, stopping at traffic lights, etc. as clues to do a few pelvic muscle exercises. Exercise your pelvic muscles regularly for a lifetime to improve and maintain bladder controDischarge instructions regarding wound care, medications and activity discussed with patient. Questions answered, verbalized understanding. l. documented in this encounter Medications at Time [...] daily with supper. 1 po qd 11/26/2015 vardenafil (LEVITRA) 20 mg Oral tablet Take 1 Tab by mouth 1 time daily as needed. 15 Tab 3 11/08/2010 11/26/2015 cyanocobalamin (VITAMIN B-12) 1,000 mcg Oral Tab Take 1,000 mcg by mouth daily. 11/26/2015 documented as of this encounter Progress Notes * [facility] - 08/05/2012 5:42 PM CDT * Nicki Scott PA - 07/21/2012 7:16 AM CDT Admit Date: 07/20/2012 Subjective: Patient has no c/o. Tolerated Vicodin well. Current Facility-Administered Medications Medication Dose Route Frequency Provider Last Rate Last Dose ??? ceFAZolin (ANCEF) IVPB 2,000 mg 2,000 mg IV Pre-Proc Once Yevgeniy Bae MD 2,000 mg at 07/20/12 0910 ??? carisoprodol (SOMA) tablet 350 mg 350 mg Oral q 8 hour PRN Giancarlo Dominguez MD 350 mg at 526 ??? hydrochlorothiazide (MICROZIDE) tablet 12.5 mg 12.5 mg Oral Daily SUPPER Giancarlo Dominguez MD ??? lactated ringers solution IV Continuous Giancarlo Dominguez MD 125 mL/hr at 07/21/12 0317 ??? naloxone (NARCAN) 0.4 mg/mL injection 0.1 mg 0.1 mg IV See Admin Notes Giancarlo Dominguez MD ??? acetaminophen (TYLENOL) tablet 650 mg 650 mg Oral q 4 hour PRN Giancarlo Dominguez MD ? ? belladonna alkaloids-opium (B&O 15A) 16.2-30 mg rectal suppository 1 Suppository 1 Suppository Rectal ONCE Giancarlo Dominguez MD ??? zolpidem (AMBIEN) tablet 5 mg 5 mg Oral HS PRN Giancarlo Dominguez MD ??? metoclopramide HCl (REGLAN) tablet 10 mg 10 mg Oral ACHS QID Giancarlo Dominguez MD ??? ondansetron (ZOFRAN ODT) tablet 4 mg 4 mg Sublingual q 8 hour PRN Giancarlo Dominguez MD ??? ketorolac (TORADOL) injection 15 mg 15 mg IV q 12 hour Giancarlo Dominguez MD 15 mg at 07/20/12 2318 ??? aluminum - magnesium - simethicone (MYLANTA) 200-200-20 mg/5 mL oral suspension 30 mL 30 mL Oral q 6 hour PRN Giancarlo Dominguez MD ??? morphine injection 2 mg 2 mg IV q 2 hour PRN Giancarlo Dominguez MD ??? morphine injection 4 mg 4 mg IV q 2 hour PRN Giancarlo Dominguez MD ??? ceFAZolin (ANCEF) IVPB 2,000 mg 2,000 mg IV Post-Proc q 8 hours Giancarlo Dominguez MD 2,000 mg at 07/20/12 2321 ??? valsartan (DIOVAN) tablet 320 mg 320 mg Oral Daily SUPPER Giancarlo Dominguez MD ??? HYDROcodone-acetaminophen (NORCO) 5-325 mg per tablet 1 Tab 1 Tab Oral q 4 hour PRN Loan Dominguez MD 1 Tab at 07/20/12 2313 ??? HYDROcodone-acetaminophen (NORCO) 5-325 mg per tablet 2 Tab 2 Tab Oral q 4 hour PRN Loan Dominguez MD ??? DISCONTD: lactated ringers solution IV Pre-Proc Continuous Yevgeniy Bae MD ??? DISCONTD: valsartan (DIOVAN) tablet 320 mg 320 mg Oral Daily SUPPER Giancarlo Dominguez MD ??? DISCONTD: ceFAZolin (ANCEF) IVPB 1,000 mg 1,000 mg IV Post-Proc q 8 hours Giancarlo Dominguez MD ??? DISCONTD: fentaNYL PF (SUBLIMAZE) 50 mcg/mL injection 25 mcg 25 mcg IV Post- Proc q 3 min PRN Matthew Perry MD ??? DISCONTD: diphenhydrAMINE (BENADRYL) injection 12.5 mg 12.5 mg IV Post-Proc q 6 hours PRN Matthew Perry MD ??? DISCONTD: ondansetron (ZOFRAN) 4 mg/2 mL injection 4 mg 4 mg IV Post-Proc q 5 min PRN Vivian Perry MD Objective: Patient Vitals for the past 8 hrs: BP Temp Temp src Pulse Resp SpO2 07/21/12 0642 107/61 mmHg - - - - - 07/21/12 0638 101/49 mmHg 98.7 ??F (37.1 ??C) Temporal 70 16 99 % 07/21/12 0300 90/53 mmHg 98 ??F (36.7 ??C) Temporal 69 16 100 % Intake/Output Summary (Last 24 hours) at 07/21/12 0716 Last data filed at 07/21/12 0600 Gross per 24 hour Intake 4705 ml Output 1225 ml Net 3480 ml General appearance: alert, in no distress, cooperative Lungs: clear to auscultation bilaterally Heart: normal rate, regular rhythm, Abdomen: Soft, non-tender. Bowel sounds normal. Normal Post-op tenderness. Incisions unremarkable. Neurological: Alert and oriented X3 Assessment: Principal Problem: *Prostate cancer Active Problems: * No active hospital problems. * Plan: 1. Will advance diet to Full liquid as tolerated. 2. Will decrease IVF to 75 cc/hr. 3. Ambulate four times daily 4. Will consider discharge later this afternoon. Discharge instructions discussed and questions were answered. Nicki Scott PA-C documented in this encounter H&P Notes * [facility] - 07/25/2012 7:14 PM CDT Electronically signed by Interface, [facility] Incoming at 07/25/2012 7:14 PM CDT * [facility] - 07/25/2012 5:53 AM CDT documented in this encounter Procedure Notes * [facility] - 07/23/2012 7:52 PM CDTAssociated Order(s): PATHOLOGY Electronically signed by Interface, [facility] Incoming at 07/23/2012 7:52 PM CDT documented in this encounter OR Notes * OR Anesthesia - [facility] - 07/25/2012 7:14 PM CDT Electronically signed by Interface, [facility] Incoming at 07/25/2012 7:14 PM CDT * OR Anesthesia - Shania Wu CRNA - 07/21/2012 8:30 AM CDT 07/21/2012 5:40 PM Nabor Mccauley No apparent Anesthesia related complications Shania Wu CRNA * Anesthesia Post Evaluation - Jimi Haley DO - 07/20/2012 1:03 PM CDT Phase I Postanesthesia Evaluation Including Modified Jennifer Score Patient seen and evaluated: RESPIRATORY FUNCTION: Respiration: able to breath and cough freely (07/20/12 1300) [2=able to breathe and cough freely, 1=dyspnea, limited breathing or tachypnea, 0=apnea or mechanicventilator] O2 Saturation: able to maintain O2 saturation greater than 92% on room air (07/20/12 1300) [2=able to maintain O2 saturation greater than 92% on room air, 1=needs O2 inhalation to maintain O2 saturation greater than 90%, 0=O2 saturation less than 90% even with O2 supplement] Resp: 16 (07/20/12 1234)SpO2: 100 % (07/20/12 1234) CARDIOVASCULAR FUNCTION: Heart Rate (Monitored): 85 bpm (07/20/12 1234) BP: 104/53 mmHg (07/20/12 1234) Circulation: BP within 20% of preanesthetic level (07/20/12 1300) [2=BP within 20% of preanesthetic level, 1=BP within 20-49% of preanesthetic level, 0=BP within 50%of preanesthetic level] MENTAL STATUS, NEURO, ACTIVITY: Consciousness: fully awake (07/20/12 1300) [2=fully awake, 1=arousable on calling, 0=not responding] Activity: able to move 4 extremities voluntarily or on command (07/20/12 1300) [2=able to move 4 extremities voluntarily or on command, 1=able to move 2 extremities voluntarily or on command, 0=unable to move extremities voluntarily or on command] TEMPERATURE: Temp: 98.6 ??F (37 ??C) (07/20/12 1234) PAIN: Pain Rating: Rest: 0 (07/20/12 0802) Presence of Pain: denies pain/discomfort (07/20/12 1234) NAUSEA AND VOMITING: POSTOPERATIVE HYDRATION: Intake/Output Summary (Last 24 hours) at 07/20/12 1303 Last data filed at 07/20/12 1207 Gross per 24 hour Intake 1800 ml Output 100 ml Net 1700 ml Modified Jennifer Score: Score: 10 (07/20/12 1300) COMMENTS: No apparent Anesthesia related complications Jimi Haley DO 07/20/2012 1:03 PM * Operative Report - Giancarlo Dominguez MD - 07/20/2012 12:46 PM CDT Operative Note Patient Name: Nabor Mccauley CSN: [id number] Date of Procedure: 07/20/2012 Preoperative diagnosis: Prostate cancer Postoperative diagnoses: Prostate cancer Procedure: da Mary laparoscopic radical prostatectomy plus bilateral lymph node sampling Surgeon: Dr. Giancarlo Dominguez M.D. Gastroenterology Nurse Practitioner: Nicki Scott PA-C Anesthesia: general with local incisional bupivacaine infiltration Estimated Blood Loss: 100 mL History and indications: Nabor Mccauley is a 71 y.o. male with prostate cancer which is felt to be clinically confined. We had an extensive discussion as regards his treatment options. All questions were answered. He wished to proceed with a da Mary laparoscopic radical prostatectomy plus lymph node sampling. Procedure: The patient was brought into the operating room and placed on the table in a supine position. He was placed under general anesthesia. Once adequate anesthesia was obtained, the patient was placed in the dorsal lithotomy position. He was appropriately padded and positioned. He was then prepped and dr leiaed in a sterile manner. A 20-Romansh Bryant catheter was then placed to dependent drainage without difficulty. I then made a midline supraumbilical incision and carried this down to the fascia. A Veress needle was then placed into the abdomen without difficulty. The fluid drop test was not normal. Given his prior surgery, I elected to do a Cezar technique and entered the abdomen directly. I thenplaced a balloon trocar into the abdomen. I used the camera to make sure that I was in the abdomen.The abdomen was then insufflated without difficulty. I inspected the abdomen and there is no overt visceral or vascular injuries noted. He had adhesions in the right lower quadrant probably from his p rior appendectomy. We placed the left arm da Mary port and 12 mm port in the left lower quadrant. I took down the adhesions sharply taking care not to injure bowel. I then placed the right and fourth arm da Mary ports under visualization. The patient was then placed in the Trendelenburg position. The robot was then docked to the patient. A 5-mm bladeless trocar was passed in the left upper quadrant without difficulty. We then took down the bladder from the anterior approach developing the space of Retzius bluntly and sharply. We then cleaned the superficial fat overlying the prostate and endopelvic fascia. This was extracted and discarded. I then entered the endopelvic fascia sharply and carried the dissection posterolaterally and then anteriorly. I then came through the puboprostatic ligaments with cautery. The dorsal venous complex was then localized and an 0 Vicryl was then placed around the complex distally. Another 0 Polysorb was placed at the apex and at the base of the prostate for backbleeding control. I then switched to a 30 degree angle down lens. I then developed the plane between the bladder and prostate just off midline. I then entered the bladder anteriorly. The Bryant catheter balloon was deflated and the fourth arm was used to retract this anteriorly. I then took down the lateral aspects of the bladder neck and prostate. The ureteral orifices were visualized and preserved. I came throughthe posterior bladder neck. I then developed a plane between the bladder and prostate/vas deferens.This was really noted to be inflamed. I then localized the vas deferens on the left and right sides. These were then transected. I then used the fourth arm to retract these cephalad. I bluntly and sharply dissected to the tips of the seminal vesicles. The right seminal vesicle seemed firm and was very stuck to the surrounding tissues. These were then freed and dissected back to the base of the prostate. I then gained access to the space between the rectum and the prostate. I developed this plane bluntly and sharply towards the apex distally and towards the neurovascular bundles laterally. I then incised the prostatic lateral fascia on the left side. I was then able to develop the plane between the neurovascular bundle in the prostate starting in the mid prostate region. I carried thisdissection distally towards the apex attempting to release the bundle and then back towards the base of the prostate. I localized the pedicle. We then placed locking clips on the pedicle. The tissue was then transected. I then performed a similar maneuver on the right side. The prostate was completely freed posteriorly. I then came from the anterior approach. I transected the dorsal venous complex with cautery. An 0 Maxon suspension suture was then placed. I grasped the tissues overlying the right external iliac vein and dissected posterolaterally to thepelvic sidewall. I then identified the obturator nerve. I localized the distal node package and we cauterized this and this was then transected. I then bluntly and sharply dissected proximally to thebase of the node package. This was then cauterized and transected. The node package was extracted through the dietetic assistant's 12-mm port . I then performed a lymph node sampling on the left side as described on the right. The iliac veins and obturator nerves were preserved bilaterally. Tisseal was placed on both sides in the area of the dissection bilaterally. The urethra was localized and transected sharply with scissors. The prostate was completely freed and then placed into an Endo Catch bag. The pelvis was then profusely irrigated. I then performed a posterior reconstruction in the Bolivar mannerapproximating the cut edge of Denonvilliers fascia which was at the base of the prostate to the posterior urethral plate below the urethral stump. I used a standard double- armed 3-0 Monocryl suture. Once this was completed, I then performed a running anastomosis using a double armed 3-0 V-lock suture. We had a larger bladder neck and I closed this down in an anterior tennis racquet manner in 2 layers using a running 3-0 Monocryl andinterrupted 2-0 Polysorb Once the anastomosis was completed, a new Bryant catheter was placed to dependent drainage without difficulty. It was irrigated and there was no overt leakage noted. The Bryant catheter balloon was then inflated. It was irrigated again and there was no leakage noted. The bladder was left filled untilthe end of the case. The Endo Catch bag suture was then passed into the abdomen. The robot was then undocked from the patient. The Endo Catch bag suture was then grasped and brought out through the supraumbilical port. We then removed all the ports under visualization. There was no overt bleeding from any of the sites.I then opened the supraumbilical port skin and fascia further to extract the prostate. I then closed this fascia using a running 0 Polysorb suture. We then injected bupivacaine in all of the incisions. The deep dermis of the supraumbilical incision was then approximated using interrupted inverted 4-0 Biosyn suture. I then approximated the fascia in the left lower quadrant 12-mm port site using an 0 Polysorb. A 4-0 subcuticular Biosyn was used to approximate the skin edges. Indermil was placed. The sponge, needle and instrument counts were correct at the end of the case. The patient toleratedthe procedure well and without complications. He was awakened and brought to the recovery room in stable condition. Operative specimen was radical prostatectomy specimen and bilateral lymph nodes. Giancarlo Dominguez MD Addendum: At the apical dissection, it was somewhat whitish and I did send some for a frozen section to make sure tumor was not present. This came back as negative. LJEvelia * Linda-OP - Mikael Petty RN - 07/20/2012 9:48 AM CDT Libia Dominguez Prostatectomy Intra-Op Medications ---Bupivacaine (MARCAINE, SENSORCAINE) 0.5% Injection @ operative site(s), 30mL given. ---Warmed 0.9% Sodium Chloride Irrigation 1000mL for Davol. ---0.9% Sodium Chloride Irrigation 1000mL on field. ---Belladonna and Opium 16.2mg/60mg Suppository inserted rectally by Dr. Dominguez (1210) PREP --ChloraPrep bilateral abdomen, penis, scrotum, inner thighs, perineum, buttocks down to bed --Povidone-Iodine prepsticks to urethral meatus 1. Manufacturing instructions followed. 2. Pooling of solution prevented using prep techniques. 3. Skin prep dried prior to incision. * OR Anesthesia - Matthew Perry MD - 07/20/2012 8:47 AM CDT Pre-Anesthesia Evaluation - Long Form 07/20/2012 8:47 AM Name: Nabor Mccauley Age: 71 y.o. Sex: male CSN: [id number] Procedure: Procedure(s): PROSTATECTOMY RADICAL DAVINCI SI LAPAROSCOPIC LY[facility]H [facility] LAP[facility] Surgeons/Assistants: Surgeon(s) and Role: * Giancarlo Dominguez MD - Primary Allergies Allergen Reactions ??? Codeine Nausea and Vomiting Makes patient extremely ill ??? Bystolic (Nebivolol) Bradycardia Prescriptions prior to admission Medication Sig Dispense Refill ??? carisoprodol (SOMA) 350 mg Oral tablet Take 1 Tab by mouth every 8 hours as needed for Spasm. 45 Tab 1 ??? OMEGA-3 ACID ETHYL ESTERS (LOVAZA ORAL) Take by mouth. 1/4 gram qd ??? valsartan (DIOVAN) 320 mg Oral tablet Take 320 mg by mouth daily with supper. 1 po qd ??? hydrochlorothiazide 25 mg Oral tablet Take 12.5 mg by mouth daily with supper. 1 po qd ??? UBIDECARENONE/VITAMIN E MIXED (COQ10 SG 100 PO) Take by mouth. ??? cyanocobalamin (VITAMIN B-12) 1,000 mcg Oral Tab Take 1,000 mcg by mouth daily. ??? LORazepam (ATIVAN) 0.5 mg Oral tablet Take 1 Tab by mouth every 12 hours. 45 Tab 1 ??? finasteride (PROSCAR) 5 mg Oral tablet Take 1 Tab by mouth daily. 90 Tab 3 ??? vardenafil (LEVITRA) 20 mg Oral tablet Take 1 Tab by mouth 1 time daily as needed. 15 Tab 3 Patient Active Problem List Diagnoses Date Noted [...] PONV No Review of Systems Cardiovascular: negative Respiratory: negative Gastroenterology: negative PHYSICAL EXAM BP 146/68 Pulse 69 Temp(Src) 97.9 ??F (36.6 ??C) (Temporal) Resp 16 Ht 5' 6.5 (1.689 m) Wt 154 lb (69.854 kg) BMI 24.48 kg/m2 SpO2 99% Weight: Weight: 154 lb (69.854 kg) (07/20/12 0802) Height: Ht Readings from Last 1 Encounters: 07/08/12 5' 6.5 (1.689 m) BMI: Body mass index is 24.48 kg/(m^2). Airway: normal range of motion: Airway Class: I (soft palate, uvula, fauces, tonsillar pillars visible); None Lungs: clear to auscultation bilaterally, normal respiratory effort Heart: regular rate and rhythm, S1, S2 normal, no murmur, click, rub or gallop Neuro: alert, oriented x 3, no defects noted in general exam. Vascular Access: Peripheral Line LABS Lab Results Component Value Date HEMOGLOBIN 14.2 07/08/2012 HEMATOCRIT 40.9 07/08/2012 Lab Results Component Value Date SODIUM 133* 07/08/2012 POTASSIUM 4.1 07/08/2012 CHLORIDE 96 07/08/2012 CO2 25 07/08/2012 CALCIUM 9.3 07/08/2012 BUN 15 07/08/2012 CREATININE 0.81 07/08/2012 GLUCOSE 85 07/08/2012 No results found for this basename: INR, PT, PROTIMEPOC No results found for this basename: HCGURPOC, HCGQUALUR, HCGQUAL, HCGQUANT, HCGINTACT No results found for this basename: glucpoc EKG: normal EKG, normal sinus rhythm Other Studies/Considerations: Cardiac studies Postop pain management discussed yes Smoking/Tobacco Counseling: None Recommendations: None [facility] report reviewed. No interval changes in patient's history or review of systems.Yes NPO Yes ASA Physical Status: ASA 2 - Patient with mild systemic disease with no functional limitations I have seen and examined this patient and confirm that all data is current and accurate. Yes Choice of Anesthesia/Anesthesia Plan: Proceed, General and Routine Monitoring I have discussed the anesthetic options and the risks/benefits with the patient/family. Questions have been solicited and answered. Yes Matthew Perry MD documented in this encounter Miscellaneous Notes * Scanned Form - Stl Scanning, [facility] - 07/25/2012 7:14 PM CDT Electronically signed by [place], [facility] Operator Incoming at 07/25/2012 7:14 PM CDT * Patient Instructions - Stl Scanning, [facility] - 07/25/2012 7:14 PM CDT Electronically signed by [facility], [facility] Operator Incoming at 07/25/2012 7:14 PM CDT * Scanned Form - Stl Scanning, [facility] - 07/25/2012 7:14 PM CDT * Scanned Form - Stl Scanning, [facility] - 07/25/2012 7:14 PM CDT Electronically signed by [facility], [facility] Laser Operator Incoming at 07/25/2012 7:14 PM CDT * Care Plan - Isi Radford RN - 07/20/2012 10:25 PM CDT Problem: Radical Prostatectomy (Adult) Goal: Prevent/Manage Potential Problems Signs and symptoms of listed problems will be absent or manageable. Outcome: Progressing Bryant catheter patent and draining dark padmini urine. * Care Plan - Isi Radford RN - 07/20/2012 10:19 PM CDT Problem: General Plan of Care (Adult, Obstetrics) Goal: Plan of Care Review (Adult, Obstetrics) The patient and/or their advertising sales representative will communicate an understanding of their plan of care prior to discharge. Outcome: Progressing Pt will be discharged with bryant cather. * Care Plan - Ingrid Gutiérrez RN - 07/20/2012 2:05 PM CDT Problem: General Plan of Care (Adult, Obstetrics) Goal: Individualization/Patient-Specific Goal (Adult, Obstetrics) The patient and/or their advertising sales representative will achieve their patient-specific goals related to the plan of care. The patient-specific goals include: pt will be able to manage bryant catheter care and leg bag changes prior to discharge. Outcome: Not Progressing Teaching not performed yet. Pt just received from pacu * Care Plan - Jaelyn Edward RN - 07/20/2012 1:03 PM CDT Potential for pain related to surgical/procedural intervention Interventions: Assess level of pain/comfort utilizing verbal/nonverbal pain scales; assess culturalor zoroastrianism indicators attached to pain; administer pain medications as prescribed; utilize non-pharmacologic pain control and comfort measures Expected Outcome: Patient demonstrates and reports adequate pain control Outcome Met: Pt denies pain. Potential for alteration in thermoregulatory, circulatory, respiratory fluid & electrolyte status Interventions: Perform ongoing physical assessment; maintenance of airway or mechanical ventilation; monitor level of consciousness; initiate safety measures; observe patient???s respiratory status and oxygen saturation; obtain measurements of ongoing hemodynamic parameters, cardiac rhythm, and temperature; monitor intake and output; inspect wound dressings and/or drain output; perform prescribedtherapeutic regimens, treatments and tests; document and/or communicate care given Expected Outcome: Patient will maintain functional status compatible with preoperative status Outcome Met: Pt progressing towards preoperative functional status. * Care Plan - Nick Childers RN - 07/20/2012 8:06 AM CDT Potential for anxiety related to surgical intervention Interventions: convey caring/supportive attitude; offer emotional support as needed; provide comfort measures (warm blanket, pillow, quiet environment); allow patient opportunity to verbalize concerns/fears/questions; explore coping behaviors; allow age-specific/special needs family support Expected Outcome: Patient will demonstrate decreased anxiety or adaptive coping strategies Outcome Met: yes Knowledge deficit related to procedure/environment Interventions: Assess learning needs and willingness to learn; give clear, concise explanations of the environment and sequence of events surrounding the periop experience; address patient/family questions and concerns; provide teaching as indicated, provide teaching related to postoperative pain assessment utilizing pain scales Expected Outcome: Patient verbalizes or demonstrates awareness/understanding of surgery and perioperative experience Outcome Met: yes documented in this encounter Plan of Treatment Upcoming Encounters Date Type Department Care Team (Late st Contact Info) Description 12/13/2024 9:45 AM CARDIAC NURSE Office Visit [facility] Oncology and Hematology - [place] [address] [place] [address] [address] [place] [address] Glenn Al MD [address] [facility] [address] [place] [address] documented as of this encounter Procedures Procedure Name Priority Date/Time Associated Diagnosis Comments HEMOGLOBIN AND HEMATOCRIT Routine 07/21/2012 3:57 AM CDT BASIC METABOLIC PANEL Routine 07/21/2012 3:57 AM CDT PATHOLOGY Routine 07/20/2012 12:59 PM CDT SODIUM LEVEL Stat 07/20/2012 8:20 AM CDT LYMPH NODE DISSECTION ROBOTIC SI 07/20/2012 8:15 AM CDT PROSTATE CANCER Case Notes MEDICARE, UMR,NN FOR BOTH, CPT: 26894, 85393 PROSTATECTOMY RADICAL ROBOTIC SI 07/20/2012 8:15 AM CDT PROSTATE CANCER Case Notes MEDICARE, UMR,NN FOR BOTH, CPT: 69742, [id number] documented in this encounter Results * (ABNORMAL) BASIC METABOLIC PANEL (07/21/2012 3:57 AM CDT) SODIUM 137 135 - 145 mmol/L [facility] POTASSIUM 3.6 3.5 - 4.9 mmol/L [facility] CHLORIDE 101 96 - 108 mmol/L [facility] CO2 31(H) 22 - 30 mmol/L [facility] CALCIUM 7.5(L) 8.6 - 10.2 mg/dL [facility] BUN 9 6 - 20 mg/dL [facility] CREATININE 0.75 0.67 - 1.17 mg/dL [facility] GLUCOSE 90 65 - 99 mg/dL [facility] GFR, >60 >=60 mL/min/1. 7 sq meter [facility] GFR >60 >=60 mL/min/1. 7 sq meter [facility] Comment: GFR is calculated using the IDMS-Traceable Modification of Diet in Renal Disease (MDRD) Study formula and is only valid for patients 18 years or older. Further interpretative information is available in the Laboratory Services Policy Manual on the [facility] Intranet at: [email or web address]/ Blood specimen (specimen) 07/21/2012 3:57 AM CDT 07/21/2012 4:13 AM CDT Giancarlo Dominguez MD CHEMISTRY ORDERABLES [facility]# [id number] [address] [facility] [place] [address] * (ABNORMAL) HEMOGLOBIN AND HEMATOCRIT (07/21/2012 3:57 AM CDT) HEMOGLOBIN 11.0(L) 13.6 - 16.5 g/dL [facility] HEMATOCRIT 33.8(L) 40.0 - 48.0 % [facility] Blood specimen (specimen) 07/21/2012 3:57 AM CDT 07/21/2012 4:13 AM CDT Giancarlo Dominguez MD HEMATOLOGY ORDERABLE S [facility] CLIA# [id number] [address] [facility] [place] [address] * PATHOLOGY (07/20/2012 12:59 PM CDT) SURGICAL PATHOLOGY ?[facility] ?[address] [facility] ? [place], [place] ??[address] ? Patient: ??NABOR MCCAULEY ? : ??1940 ? Procedure Date: ??07/20/2012 ? Accession Date: ??07/20/2012 ? Case No: ??[id number] ? Ordering Dr: ??GIANCARLO DOMINGUEZ ? Case type SW is performed by [facility], [address] [place] [address], ? [place], [place] ??[address]; all other case types are performed by [facility] ? [facility], [address] [facility], [place], [place] ??[address] ?SURGICAL PATHOLOGY & NON-GYNECOLOGIC CYTOPATHOLOGY REPORT ? DIAGNOSIS ? PROSTATE, RADICAL PROSTATECTOMY: ? - ADENOCARCINOMA, TWO DISTINCT FOCI OF: ? 1) DOMINANT FOCUS: COMBINED FLORIN PATTERN SCORE 8 (4+4), LEFT ?POSTEROLATERAL PROSTATE. ? 2) SECONDARY FOCUS: COMBINED FLORIN PATTERN SCORE 7 (3+4), RIGHT ?POSTEROLATERAL PROSTATE. ? - EXTRAPROSTATIC EXTENSION IS IDENTIFIED (pT3a). ? - SEMINAL VESICLE INVASION IS NOT IDENTIFIED. ? - ALL MARGINS OF RESECTION ARE NEGATIVE FOR MALIGNANCY. ? LYMPH NODES, BILATERAL PELVIC, EXCISION: ? - NEGATIVE FOR MALIGNANCY (0/2). ? PROSTATE, APEX, BIOPSY: ? - NEGATIVE FOR MALIGNANCY. ? Specimen Description: ? (1) Prostate; (2) bilateral pelvic lymph nodes; (3) prostate apex for ? frozen section. ? Operative Procedure: ? Prostatectomy. ? Patient Information/Histor y/Diagnosis: ? Prostate cancer. ? Frozen Section: ? FS: Prostate, apex: ? - No tumor seen. ? GL ? KLA/TMZ 07.21.2012 09:16 am ? Gross: ? Three containers are received labeled Nabor Mccauley. Received in the ? first container, additionally labeled prostate, is a 35-g, 4.7 x 3.7 x ? 3.5-cm prostate which has 2.8 cm of attached left seminal vesicle. No ? seminal vesicle is attached on the right side. The capsular surface is ? pink-pretty and glistening with focal adherent yellow adipose tissue. The ? anterior and bladder neck margins are cauterized. The left half of the ? prostate is marked with blue ink. The right half of the prostate is marked ? with black ink. The posterior surface is additionally marked with green ? ink. The prostate is serially sectioned from apex to seminal vesicle. ? Sectioning exhibits a 1.5 x 1.3 x 1.4 cm indurated joseph lesion in the left ? posterior lobe of the prostate, near the apex. This lesion is less than 0.1 ? cm from both the blue and green-inked margins. The lesion extends to within ? 0.2 cm of the distal urethral margin. The remainder of the cut surface is ? pretty-joseph and smooth with mild periurethral nodularity. No additional ? lesions are identified. The prostate is entirely, sequentially submitted in ? cassettes as follows: A1 and A2-distal urethral margin, perpendicular ? sections; A3 through A4-proximal urethral margin, perpendicular sections; ? A5 through W97-bcjq half of prostate from apex to base; A16 through A26- ? right half of prostate from apex to base. Loose seminal vesicles are ? received within the container and are 3 x 1.7 x 0.8 cm. The surface is ? cauterized, but otherwise unremarkable. Tissue is serially sectioned and ? entirely submitted in cassettes A27 and A28. ? Received in the second container, additionally labeled bilateral pelvic ? lymph nodes, is a 3.5 x 3.5 x 1.5-cm aggregate of yellow-joseph fibrofatty ? tissue, which is dissected for lymph nodes. Two potential lymph nodes are ? identified and are submitted in cassettes B1 and B2. ? Received in the third container, additionally labeled prostate apex, for ? frozen section are two pieces of red tissue, 0.2 and 0.3 cm in greatest ? dimension. The specimen is entirely frozen as FS. The frozen section ? remnant is submitted in cassette CFS1. ? KLA/TMZ 07.21.2012 09:16 am ? Microscopic: ? Received are slides labeled [id number], Nabor Mccauley. ? Sections of prostate show the presence of adenocarcinoma involving the ? bilateral prostate glands. The largest focus is within the left ? posterolateral apical to mid prostate, and has a combined Hubert pattern ? score 8 (4+4). Smaller foci are also present within the right ? posterolateral apical to mid prostate, the larger of which has a combined ? Hubert pattern score 7 (3+4). Extraprostatic extension is identified ? within the left lateral apical prostate, which is present on two ? consecutive sections and measures up to 0.5 cm in greatest linear ? dimension. Perineural invasion is readily identified. There is a focus ? suspicious for, but not unequivocal for, lymphovascular invasion. Seminal ? vesicle invasion is not identified. All margins of resection are negative ? for malignancy. The background prostate shows the presence of high-grade ? prostatic intraepithelial neoplasia and benign prostatic hyperplasia. ? Sections of bilateral pelvic lymph nodes contain two lymph nodes, both of ? which are negative for malignancy. ? Sections of prostate apex contain two pieces of fibrovascular tissue, ? containing focal nests of benign urothelium. They are negative for ? malignancy, confirming the frozen section diagnosis. ? Summary of Significant Characteristics for Radical Prostatectomy: ? Procedure: Radical prostatectomy. ? Prostate Size: 35 g, 4.7 x 3.7 x 3.5 cm. ? Lymph Node Sampling: Pelvic lymph node dissection. ? Histologic Type: Adenocarcinoma (conventional, NOS). ? Histologic Grade: Dominant nodule: combined Hubert pattern score 8 ? (4+4); Secondary nodule: of combined Florin pattern score 7 (3+4). ? Tumor Quantitation: Adenocarcinoma involves 9 of 28 prostatic and ? seminal vesicle slides, involving approximately 20% of the prostate ? gland. ? Extraprostatic Extension: Present, focal. ? Seminal Vesicle Invasion: Identified. ? Margins: Uninvolved by invasive carcinoma. ? Treatment Effect on Carcinoma: Not identified. ? Lymph-Vascular Invasion: Indeterminate. ? Pathologic Staging (pTNM): pT3a, N0, MX ? Lymph nodes: Number examined 2; Number involved 0. ? [facility]/LKP 07.22.2012 04:50 pm ? Staging Form: ? Yes. ? ELECTRONIC SIGNATURE FOR KEEGAN WAYNE M.D.- 07/23/12 06:32 pm [facility] [employer] [facility] Specimen of unknown material (specimen) 07/20/2012 12:59 PM CDT Narrative Transcriptions Tulio Haynes - 07/23/2012 7:52 PM CDT Giancarlo Dominguez MD PATHOLOGY/CYTOLOGY O RDERABLES Performing Organization Address [facility]/ZIP Co de Phone Number [facility] [employer] [facility] CLIA# [id number] [address] [place] [address] * SODIUM LEVEL (07/20/2012 8:20 AM CDT) SODIUM 139 135 - 145 mmol/L [facility] Blood specimen (specimen) 07/20/2012 8:20 AM CDT 07/20/2012 8:25 AM CDT Giancarlo Dominguez MD CHEMISTRY ORDERABLES Performing Organization Address [facility] Co de Phone Number [facility] [employer] [facility] CLIA# [id number] [address] [place] [address] documented in this encounter Visit Diagnoses Diagnosis Prostate cancer- Primary Malignant neoplasm of prostate documented in this encounter Administered Medications Inactive Administered Medications - up to 3 most recent administrations Medication Order MAR Action Action Date Dose Rate Site carisoprodol (SOMA) tablet 350 mg 350 mg, Oral, EVERY 8 HOURS PRN, Starting on Thu07/20/12 at 1340, Until Thu07/21/12 at 1206, Spasm, Routine Given 07/20/2012 3:26 PM CDT 350 mg ceFAZolin (ANCEF) IVPB 2,000 mg 2,000 mg, IV, PRE-PROCEDURE ONCE, 1 dose, Starting on Thu07/20/12 at 0846, Until Thu07/20/12 at 0940, Routine Given 07/20/2012 9:10 AM CDT 2,000 mg ceFAZolin (ANCEF) IVPB 2,000 mg 2,000 mg, IV, POST-PROCEDURE Q 8 HOURS, 2 doses, First dose on Thu07/20/12 at 1600, Last dose on Thu07/21/12 at 0000, Routine Given 07/20/2012 11:21 PM CDT 2,000 mg Given 07/20/2012 3:26 PM CDT 2,000 mg HYDROcodone-acetaminophen (NORCO) 5-325 mg per tablet 1 Tab 1 Tablet, Oral, EVERY 4 HOURS PRN, Starting on Thu07/20/12 at 1903, Until Thu07/21/12 at 1206, Pain, Moderate, Routine Given 07/20/2012 11:13 PM CDT 1 Tablet ketorolac (TORADOL) injection 15 mg 15 mg, IV, EVERY 12 HOURS, 2 doses, First dose on Thu07/21/12 at 0000, Last dose on Thu07/21/12 at 1200, Routine Given 07/20/2012 11:18 PM CDT 15 mg lactated ringers solution IV, at 75 mL/hr, CONTINUOUS, Starting on Thu07/20/12 at 1345, Until Thu07/21/12 at 1206, Routine Rate Change 07/21/2012 7:17 AM CDT 75 mL/hr Bag Switched 07/21/2012 3:17 AM CDT 125 mL/hr New Bag 07/20/2012 7:21 PM CDT 125 mL/hr metoclopramide HCl (REGLAN) tablet 10 mg 10 mg, Oral, FOUR TIMES DAILY BEFORE MEALS AND AT BEDTIME, First dose on Thu07/20/12 at 1600, Until Discontinued, Routine Given 07/21/2012 7:24 AM CDT 10 mg documented in this encounter Active and Recently Administered Medications Times are shown in CDT. Scheduled Medication Order 07/19/2012 07/20/2012 07/21/2012 ceFAZolin (ANCEF) IVPB 2,000 mg (COMPLETED) 2,000 mg, IV, PRE-PROCEDURE ONCE, 1 dose, Starting on Thu07/20/12 at 0846, Until Thu07/20/12 at 0940, Routine 0910 (Given - Provider: RASHI Wang) ceFAZolin (ANCEF) IVPB 2,000 mg (COMPLETED) 2,000 mg, IV, POST-PROCEDURE Q 8 HOURS, 2 doses, First dose on Thu07/20/12 at 1600, Last dose on Thu07/21/12 at 0000, Routine 1526 (Given - Provider: Ingrid Gutiérrez RN)2321 (Given - Provider: Rosibel Coronel RN - Comment: stopped @ 2229) ketorolac (TORADOL) injection 15 mg (CANCELED) 15 mg, IV, EVERY 12 HOURS, 2 doses, First dose on Thu07/21/12 at 0000, Last dose on Thu07/21/12 at 1200, Routine 2318 (Given - Provider: Rosibel Coronel RN) metoclopramide HCl (REGLAN) tablet 10 mg (CANCELED) 10 mg, Oral, FOUR TIMES DAILY BEFORE MEALS AND AT BEDTIME, First dose on Thu07/20/12 at 1600, Until Discontinued, Routine 1600 (Refused - Provider: Ingrid Gutiérrez, JORGE ALBERTO)2100 (Refused - Provider: Isi Radford, RN) 0600 (Refused - Provider: Isi Radford, JORGE ALBERTO)0724 (Given - Provider: Ingrid Gutiérrez RN) Continuous Medication Order 07/19/2012 07/20/2012 07/21/2012 lactated ringers solution (CANCELED) IV, at 75 mL/hr, CONTINUOUS, Starting on Thu07/20/12 at 1345, Until Thu07/21/12 at 1206, Routine 1345 (Rate Change - Provider: Ingrid Gutiérrez RN)1921 (New Bag - Provider: Isi Radford RN) 0317 (Bag Switched - Provider: Harriet Sandoval RN)0717 (Rate Change - Provider: Ingrid Gutiérrez, JORGE ALBERTO)1006 (Stopped - Provider: Ingrid Gutiérrez, JORGE ALBERTO) PRN Medication Order 07/19/2012 07/20/2012 07/21/2012 carisoprodol (SOMA) tablet 350 mg (CANCELED) 350 mg, Oral, EVERY 8 HOURS PRN, Starting on Thu07/20/12 at 1340, Until Thu07/21/12 at 1206, Spasm, Routine 1526 (Given - Provider: Annetta Isaacs RN) HYDROcodone-acetaminophen (NORCO) 5-325 mg per tablet 1 Tab (CANCELED) 1 Tablet, Oral, EVERY 4 HOURS PRN, Starting on Thu07/20/12 at 1903, Until Thu07/21/12 at 1206, Pain, Moderate, Routine 2313 (Given - Provider: Kevin Coronel RN) documented in this encounter Care Teams Associate Professor Of History Relationship Specialty Start Date End Date Nabor Whitley DO [address] [place] [address] PCP - General 09/07/09 07/31/20 documented as of this encounter
--- OUTSIDE RECORDS SUMMARY | 2024-10-30 02:34 | XMS_ITS | Encounter Summary ---
Author Organization [facility] Address [address] [place] [address] Care Team Providers Care Sap Functional Analyst Name Role Phone Ilan Whitley DO Primary Care Provider Encounter Details Date Type Department Care Team (Late Contact Info) Description 07/01/2012 Abstract [facility] Internal Medicine [facility] [id number] [address] Provider, Abstract NO ADDRESS ON [...] (Late Contact Info) Description 12/13/2024 9:45 AM TRAFFIC SIGNAL SUPERVISOR MAINTENANCE Office Visit [facility] Oncology and Hematology - [place] [address] [facility] [address] [place] [address] Glenn Al MD [address] [facility] [address] [place] [address] documented as of this encounter Visit Diagnoses Not on filedocumented in this encounter Care Teams Sap Functional Analyst Relationship Specialty Start Date End Date Ilan Whitley DO [address] [place] [address] PCP - General 09/07/09 07/31/20 documented as of this encounter
--- OUTSIDE RECORDS SUMMARY | 2024-10-30 02:34 | XMS_ITS | Encounter Summary ---
Author Organization [facility] Address [address] [place] [address] Care Team Providers Care Biomedical Instrument Technician Name Role Phone TeofiloIlan strong DO Primary Care Provider Reason for Visit * Reason Onset Date Comments Question 07/29/2011 Encounter Details Date Type Department Care Team (Late Contact Info) Description 07/29/[address] [facility] Heart and Vascular At [address] [place] [address] Kailee Le, RN Question Social History Tobacco Use Types Packs/Day [...] encounter Miscellaneous Notes * Telephone Encounter - Kailee Le, RN - 07/29/2011 8:52 AM CDT Ordered Captopril as requested. documented in this encounter Plan of Treatment Upcoming Encounters Date Type Department Care Team (Late Contact Info) Description 12/13/2024 9:45 AM CQ DEVELOPER Office Visit [facility] Oncology and Hematology - [place] [address] [address] Glenn Al MD [address] [facility] [address] [place] [address] documented as of this encounter Visit Diagnoses Diagnosis HTN (hypertension)- Primary Unspecified essential hypertension documented in this encounter Care Teams Biomedical Instrument Technician Relationship Specialty Start Date End Date Ilan Whitley DO [address] [place] [address] PCP - General 09/07/09 07/31/20 documented as of this encounter
--- OUTSIDE RECORDS SUMMARY | 2024-10-30 02:34 | XMS_ITS | Encounter Summary ---
Author Organization [facility] Address [address] [place] [address] Care Team Providers Care Adjunct Teacher Name Role Phone Ilan Whitley DO Primary Care Provider Encounter Details Date Type Department Care Team (Late st Contact Info) Description 07/10/2011 Abstract [facility] Internal Medicine [facility] [address] [facility] [address] [place] [address] Ilan Whitley DO [address] [facility] [address] [address] [place] [address] Social History Tobacco Use Types [...] st Contact Info) Description 12/13/2024 9:45 AM EPIC AMBULATORY ANALYST Office Visit [facility] Oncology and Hematology - [place] [address] [place] [address] Glenn Al MD [address] [facility] [address] [place] [address] documented as of this encounter Procedures Procedure Name Priority Date/Time Associated Diagnosis Comments US RENAL AND BLADDER Routine 07/02/2011 documented in this encounter Results * US RENAL AND BLADDER (07/02/2011) Anatomical Region Laterality Modality Abdomen Other Ilan BELCHER ORDERABLES documented in this encounter Visit Diagnoses Not on filedocumented in this encounter Care Teams Adjunct Teacher Relationship Specialty Start Date End Date Ilan Whitley, [address] [place] [phone] PCP - General 09/07/09 07/31/20 documented as of this encounter
--- OUTSIDE RECORDS SUMMARY | 2024-10-30 02:34 | XMS_ITS | Encounter Summary ---
Author Organization [facility] Address [address] [place] [address] Care Team Providers Care Outreach Analyst Name Role Phone TeofilorgaaronIlan bennett DO Primary Care Provider Reason for Visit * Reason Comments Follow Up PAF/HTN/HLD Encounter Details Date Type Department Care Team (Late st Contact Info) Description 07/21/2011 12:45 PM CDT Office Visit [facility] Heart and Vascular At [address] [place] [address] Eleazar Mishra MD [address] [place] [address] [address] [place] [address] Murmur; HTN (hypertension); Renal artery stenosis; Heart murmur previously undiagnosed Social History Tobacco Use Types Packs/Day Years [...] Sign Reading Time Taken Comments Blood Pressure 160/80 07/21/2011 12:50 PM CDT Pulse 80 07/21/2011 12:50 PM CDT Temperature - - Respiratory Rate - - Oxygen Saturation 97% 07/21/2011 12:50 PM CDT Inhaled Oxygen Concentration - - Weight 80.7 kg (178 lb) 07/21/2011 12:50 PM CDT Height 170.2 cm (5' 7 ) 07/21/2011 12:50 PM CDT Body Mass Index 27.88 07/21/2011 12:50 PM CDT documented in this encounter Progress Notes * Eleazar Mishra MD - 07/21/2011 1:14 PM CDT HISTORY OF PRESENT ILLNESS Ilan Mccauley, a 70 y.o. male. HPI Patient here for f/u re: HTN, PAF, dyslipidemia. Doing better. Only gets the elevated pressures about once a week now. It is usually associated withanxiety. Gets symptomatic with the elevations. No palpitations. Patient had renal ultrasound done in [place] which revealed mild to moderate MAXIMUS on the right. At home, patient's pressures have been running predominantly around the 140's over 80's but he has not checked regularly. Recent stress test negative. Has been active without issues. Can walk, cycle, and canoe without problems. Current outpatient prescriptions Medication Sig Dispense Refill ??? captopril (CAPOTEN) 25 mg Oral tablet Take 1 Tab by mouth 3 times daily. 90 Tab 3 ??? triamterene-hydrochlorothiazide (MAXZIDE-25MG) 37.5-25 mg Oral tablet Take 1 Tab by mouth daily. 30 Tab 6 ??? finasteride (PROSCAR) 5 mg Oral tablet Take 1 Tab by mouth daily. 90 Tab 3 ??? vardenafil (LEVITRA) 20 mg Oral tablet Take 1 Tab by mouth 1 time daily as needed. 15 Tab 3 ??? UBIDECARENONE/VITAMIN E MIXED (COQ10 SG 100 PO) Take by mouth. ??? cyanocobalamin (VITAMIN B-12) 1,000 mcg Oral Tab Take 1,000 mcg by mouth daily. ??? omega-3 acid ethyl esters (LOVAZA) 1 gram Oral Cap Take 4 Gram by mouth daily. ??? DISCONTD: ALPRAZolam (XANAX) 0.25 mg Oral tablet Take 1 Tab by mouth 2 times daily as needed for Anxiety. 45 Tab 1 ??? DISCONTD: LACTOBACILLUS/FOS/PECTIN (PROBIOTIC COMPLEX PO) Take by mouth. REVIEW OF SYSTEMS Review of Systems Constitutional: Negative for fatigue. HENT: Negative for nosebleeds. Eyes: Negative for visual disturbance. Respiratory: Negative for chest tightness and shortness of breath. Cardiovascular: Negative for chest pain and palpitations. Gastrointestinal: Positive for abdominal pain (thinks associated with ASA. has not been taking ASA regularly b/c of this. ). Negative for blood in stool. Genitourinary: Negative for hematuria. Musculoskeletal: Negative for myalgias. Skin: Negative for wound. Neurological: Negative for syncope. Hematological: Does not bruise/bleed easily. Psychiatric/Behavioral: Negative for behavioral problems and agitation. PHYSICAL EXAM BP 160/80 Pulse 80 Ht 5' 7 (1.702 m) Wt 178 lb (80.74 kg) BMI 27.88 kg/m2 SpO2 97% Physical Exam Constitutional: He is oriented to person, place, and time. He appears well- developed and well-nourished. No distress. HENT: Head: Normocephalic and atraumatic. Eyes: Conjunctivae are normal. Right eye exhibits no discharge. Left eye exhibits no discharge. No scleral icterus. Neck: Neck supple. Cardiovascular: Normal rate and regular rhythm. Murmur (TOSHIA. ) heard. Pulmonary/Chest: Effort normal and breath sounds normal. No respiratory distress. Musculoskeletal: He exhibits no edema. No clubbing or cyanosis. Neurological: He is alert and oriented to person, place, and time. Skin: Skin is warm. He is not diaphoretic. Psychiatric: He has a normal mood and affect. His behavior is normal. STRESS ECHO Summary: - Procedure narrative: Transthoracic stress echocardiography. [...] Normal study. Normal study after maximal exercise. Event Monitor Results INDICATIONS Atrial fibrillation. The patient was monitored for 10 days. There was only a single baseline transmission, which revealed sinus rhythm. Heart rate 96. No ectopy. No results found for this basename: CHOLTOT, HDL, LDLCALC, LDLDIRECT, TRIGLYCERIDE No results found for this basename: ALT ASSESSMENT and PLAN: 1) PAF with CHADS2 Score of 1 - patient to continue with ASAS 325 mg every other day since patient having GI upset if taking on a daily basis. 2) HTN - on the higher side. No change to regimen. Asked patient to check bp's in the am and pm andsend in results after one week. 3) Dyslipidemia - patient tells me that he does NOT have any cholesterol issues. Heart healthy lifestyle encouraged. 4) Heart murmur - echo to evaluate. 5) Erectile dysfunction 6) Mild to moderate Right Renal Artery stenosis - monitor. 7) F/U in 6 months or prn. * 07/21/2011 12:53 PM CDT He wore a heart monitor and was dx with Afib. He is here to talk about that and is concerned with still having elevated BP readings. Has episodes where BP gets up to 180/100. Feels like crap when his Bp is that high. Afib has not interfered with his normal activity. documented in this encounter Miscellaneous Notes * Patient Instructions - Eleazar Mishra MD - 07/21/2011 1:27 PM CDT 1) PAF with CHADS2 Score of 1 - patient to continue with ASAS 325 mg every other day since patient having GI upset if taking on a daily basis. 2) HTN - on the higher side. No change to regimen. Asked patient to check bp's in the am and pm andsend in results after one week. 3) Dyslipidemia - patient tells me that he does NOT have any cholesterol issues. Heart healthy lifestyle encouraged. 4) Heart murmur - echo to evaluate. 5) Erectile dysfunction 6) F/U in 6 months or prn. documented in this encounter Plan of Treatment Upcoming Encounters Date Type Department Care Team (Late st Contact Info) Description 12/13/2024 9:45 AM REVOLVING FIELD ASSEMBLER Office Visit [facility] Oncology and Hematology - [place] [address] [facility] [address] [place] [address] Glenn Al MD [address] [facility] [address] [place] [address] documented as of this encounter Visit Diagnoses Diagnosis Murmur Undiagnosed cardiac murmurs HTN (hypertension) Unspecified essential hypertension Renal artery stenosis Atherosclerosis of renal artery Heart murmur previously undiagnosed Undiagnosed cardiac murmurs documented in this encounter Care Teams Outreach Analyst Relationship Specialty Start Date End Date Ilan Whitley DO [address] [place] [address] PCP - General 09/07/09 07/31/20 documented as of this encounter
--- OUTSIDE RECORDS SUMMARY | 2024-10-30 02:34 | XMS_ITS | Encounter Summary ---
Author Organization [facility] Address [address] [place] [address] Care Team Providers Care Manager Athletics Name Role Phone Ilan Whitley DO Primary Care Provider Encounter Details Date Type Department Care Team (Late Contact Info) Description 06/27/[address] [facility] Internal Medicine [facility] [phone] [facility] 320 [place] [phone] Ilan Whitley DO [address] [facility] [place] [address] Social History Tobacco Use Types [...] st Contact Info) Description 12/13/2024 9:45 AM FORENSIC NURSE Office Visit [facility] Oncology and Hematology - [place] [address] [place] [address] Glenn Al MD [address] [facility] [address] [place] [address] documented as of this encounter Visit Diagnoses Not on filedocumented in this encounter Care Teams Manager Athletics Relationship Specialty Start Date End Date Ilan Whitley DO [address] [facility] [address] [place] [address] PCP - General 09/07/09 07/31/20 documented as of this encounter
--- OUTSIDE RECORDS SUMMARY | 2024-10-30 02:34 | XMS_ITS | Encounter Summary ---
Author Organization [facility] Address [address] [place] [address] Care Team Providers Care Design Technology Teacher Name Role Phone Ilan Lawler DO Primary Care Provider Reason for Visit * Reason Onset Date Comments Results 05/20/2012 ua results Encounter Details Date Type Department Care Team (Late st Contact Info) Description 05/20/2012 Telephone [facility] Internal Medicine [place] [phone] [address] Ilan Lawler DO [address] [facility] [address] [place] [address] Results (ua results) Social History Tobacco Use Types Packs/Day [...] * Telephone Encounter - Bandar Rosales - 05/20/2012 9:02 AM CDT Pt aware/az * Telephone Encounter - Bandar Rosales - 05/20/2012 9:01 AM CDT Message copied by BANDAR ROSALES on ThuMay 20, 2012 9:01 AM ------ Message from: ILAN LAWLER Created: ThuMay 19, 2012 4:38 PM ua still with blood To dr trevino as we dw in offcie documented in this encounter Plan of Treatment Upcoming Encounters Date Type Department Care Team (Late st Contact Info) Description 12/13/2024 9:45 AM OILSEED MEAT PRESSER Office Visit [facility] Oncology and Hematology - [place] [address] [facility] [address] [place] [address] Glenn Al MD [address] [facility] [address] [place] [address] documented as of this encounter Visit Diagnoses Not on filedocumented in this encounter Care Teams Design Technology Teacher Relationship Specialty Start Date End Date Ilan Lawler DO [address] [place] [address] PCP - General 09/07/09 07/31/20 documented as of this encounter
--- OUTSIDE RECORDS SUMMARY | 2024-10-30 02:34 | XMS_ITS | Encounter Summary ---
Author Organization [facility] Address [address] [place] [address] Care Team Providers Care Aircraft Shipping Checker Name Role Phone Ilan Whitley DO Primary Care Provider Encounter Details Date Type Department Care Team (Latest Contact Info) Description 05/19/2012 11:22 AM CDT - 05/19/2012 11:59 PM T Hospital Encounter [facility] [address] [place] [address] Ilan Whitley DO [address] [place] [address] Discharge Disposition: Home or Self Care Social [...] Dispensed Refills Start Date End Date OMEGA-3 ACID ETHYL ESTERS (LOVAZA ORAL) Take [...] st Contact Info) Description 12/13/2024 9:45 AM GAS STATION CLERK Office Visit [facility] Oncology and Hematology - [place] [address] [facility] [address] [place] [address] Glenn lA MD [address] [facility] [address] [place] [address] documented as of this encounter Procedures Procedure Name Priority Date/Time Associated Diagnosis Comments URINALYSIS WITH REFLEX CULTURE Routine 05/19/2012 11:25 AM CDT Hematuria URINALYSIS W/REFLEX MICROSCOPIC Routine 05/19/2012 11:25 AM CDT documented in this encounter Results * (ABNORMAL) URINALYSIS (05/19/2012 11:25 AM CDT) COLOR UA Yellow [facility] CLARITY UA Clear Clear [facility] - [facility] SPECIFIC GRAVITY UA 1.013 1.001 - 1.035 [facility] PH UA 5.0 5.0 - 8.0 [facility] LEUKOCYTE ESTERASE UA Negative Negative [facility] - . [facility] NITRITE UA Negative Negative [facility] PROTEIN UA Negative Negative [facility] GLUCOSE UA Negative Negative [facility] - . [facility] KETONES UA Negative Negative [facility] UROBILINOGEN UA <1 <=1 mg/dL [facility] Y [facility] BILIRUBIN UA Negative Negative [facility] BLOOD UA 1+(A) Negative [facility] - . [place] WBC UA 1 0 - 3 /HPF [facility] - [facility] RBC UA 1 0 - 3 /HPF [facility] LABORATORY SERVICES [facility] CA OXALATE CRYSTAL Rare /HPF [facility] 05/19/2012 11:2 5 AM CDT 05/19/2012 3:44 PM CDT Comment:URINE VOIDED Ilan Whitley DO URINE ORDERABL ES Performing Organization Address [facility] Co de Phone Number [facility] CLIA# [id number] [address] [place] [address] * URINALYSIS WITH REFLEX CULTURE (05/19/2012 11:25 AM CDT) URINE CULTURE ORDER Not indicated [facility] Comment: Criteria for a reflex culture include [...] VOIDED Ilan Whitley DO URINE ORDERABL ES Performing Organization Address [facility] Co de Phone Number [facility]# [id number] [address] [place] [address] documented in this encounter Visit Diagnoses Diagnosis Hematuria Hematuria, unspecified documented in this encounter Care Teams Aircraft Shipping Checker Relationship Specialty Start Date End Date Ilan Whitley DO [address] [place] [address] PCP - General 09/07/09 07/31/20 documented as of this encounter
--- OUTSIDE RECORDS SUMMARY | 2024-10-30 02:34 | XMS_ITS | Encounter Summary ---
Author Organization [facility] Address [address] [place] [address] Care Team Providers Care Innovation Manager Name Role Phone Ilan Whitley DO Primary Care Provider Encounter Details Date Type Department Care Team (Late Contact Info) Description 07/19/2013 Abstract [facility] Internal Medicine [facility] [id number] [address] Provider, Abstract NO ADDRESS ON [...] (Late Contact Info) Description 12/13/2024 9:45 AM CLINICAL CARE MANAGER Office Visit [facility] Oncology and Hematology - [place] [address] [facility] [address] [place] [address] Glenn Al MD [address] [facility] [address] [place] [address] documented as of this encounter Visit Diagnoses Not on filedocumented in this encounter Care Teams Innovation Manager Relationship Specialty Start Date End Date Ilan Whitley DO [address] [place] [address] PCP - General 09/07/09 07/31/20 documented as of this encounter
--- OUTSIDE RECORDS SUMMARY | 2024-10-30 02:34 | XMS_ITS | Encounter Summary ---
Author Organization [facility] Address [address] [place] [address] Care Team Providers Care Inspector Metal Can Name Role Phone Ilan Whitley DO Primary Care Provider Encounter Details Date Type Department Care Team (Late st Contact Info) Description 06/25/2012 Abstract [facility] Internal Medicine [facility] [address] [facility] 320 [place] [address] Ilan Whitley DO [address] [facility] [address] [place] [address] Social History Tobacco Use Types [...] st Contact Info) Description 12/13/2024 9:45 AM MOTORBOAT OPERATOR Office Visit [facility] Oncology and Hematology - [place] [address] [place] [address] Glenn Al MD [address] [facility] [address] [place] [address] documented as of this encounter Visit Diagnoses Not on filedocumented in this encounter Care Teams Inspector Metal Can Relationship Specialty Start Date End Date Ilan Whitley DO [address] [facility] [address] [place] [address] PCP - General 09/07/09 07/31/20 documented as of this encounter
--- OUTSIDE RECORDS SUMMARY | 2024-10-30 02:34 | XMS_ITS | Encounter Summary ---
Author Organization [facility] Address [address] [place] [address] Care Team Providers Care Care Navigator Name Role Phone Ilan Whitley DO Primary Care Provider Encounter Details Date Type Department Care Team (Late st Contact Info) Description 04/13/2012 Abstract [facility] Internal Medicine [facility] [address] [facility] 320 [place] [phone] Ilan Whitley DO [address] [facility] [address] [place] [address] Social History Tobacco Use Types [...] st Contact Info) Description 12/13/2024 9:45 AM BOTTLE WASHER MACHINE Office Visit [facility] Oncology and Hematology - [place] [address] [place] [address] Glenn Al MD [address] [facility] [address] [place] [address] documented as of this encounter Procedures Procedure Name Priority Date/Time Associated Diagnosis Comments TESTOSTERONE FREE AND TOTAL Routine 04/07/2012 documented in this encounter Results * TESTOSTERONE FREE AND TOTAL (04/07/2012) Blood specimen (specimen) Stl Other CHEMISTRY ORDERABLES EXTERNAL LAB documented in this encounter Visit Diagnoses Not on filedocumented in this encounter Care Teams Care Navigator Relationship Specialty Start Date End Date Ilan Whitley DO [address] [place] [address] PCP - General 09/07/09 07/31/20 documented as of this encounter
--- OUTSIDE RECORDS SUMMARY | 2024-10-30 02:34 | XMS_ITS | Encounter Summary ---
Author Organization [facility] Address [address] [place] [address] Care Team Providers Care Cleat Thrower Name Role Phone TeofiloIlan strong DO Primary Care Provider Encounter Details Date Type Department Care Team (Latest Contact Info) Description 06/29/2012 9:50 AM CDT - 06/29/2012 11:59 PM T Hospital Encounter [facility] Laboratory Support Services [address] [place] [address] Kaleb Dominguez MD [address] [facility] [address] [place] [address] Discharge Disposition: Home or Self Care Social [...] times daily. 8 Cap 0 07/21/2012 11/26/2015 LORazepam (ATIVAN) 0.5 mg Oral tablet [...] st Contact Info) Description 12/13/2024 9:45 AM PUBLIC RELATIONS PLAYER Office Visit [facility] Oncology and Hematology - [place] [address] [facility] [address] [place] [address] Glenn Al MD [address] [facility] [address] [place] [address] documented as of this encounter Procedures Procedure Name Priority Date/Time Associated Diagnosis Comments PATHOLOGY Routine 06/29/2012 10:36 AM CDT documented in this encounter Results * PATHOLOGY (06/29/2012 10:36 AM CDT) SURGICAL PATHOLOGY ?[facility] ?[address] ? [place], [place] ??[address] ? Patient: ??ILAN MCCAULEY ? : ??1940 ? Procedure Date: ??06/29/2012 ? Accession Date: ??06/29/2012 ? Case No: ??[id number] ? Ordering Dr: ??KALEB DOMINGUEZ ? Case type SW is performed by [facility], [address] [place] [address], ? [place], [place] ??[address]; all other case types are performed by [facility] ? [facility], [address] [place], [place] ??[address] ? OUTSIDE CONSULTATION REPORT ? DIAGNOSIS ? 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 ? Submitted By: ? Dr. Kaleb Dominguez, [facility], [address] [facility], [facility] ? [address], [place] [address]; cc: [facility] [place], ? Laboratory, [address] [place] [address], [address], [place] [address] ? Date Received: 06/29/12 ? Date Dictated: 06/29/12 ? Billing Code: BP ? Patient Information/Histo ry/Diagnosis: ? None provided. ? Material Received: ? We receive from [facility] [place] 12 slides labeled S12- ? 1116 and Ilan Mccauley. The slides are returned. ? Microscopic: ? The accompanying report indicates the slides represent sections from ? multiple-site biopsies of the prostate obtained 06/21/12. Adenocarcinoma is ? present in four of the sites sampled (left lateral mid region, left lateral ? apex, left mid region, left apex). In all sites, tumor has a Florin ? pattern score 8 (4+4). Perineural invasion is present. The remaining ? biopsies display benign prostatic tissue. ? FABIOLA/CARYL 06.29.12 ? ELECTRONIC SIGNATURE FOR KHALIDA MCCAULEY M.D. - 06/29/12 04:02 pm [facility] 06/29/2012 10:3 6 AM CDT Kaleb Dominguez MD PATHOLOGY/CYTOLOGY O RDERABLES [facility] CLIA# [id number] [address] [place] [address] documented in this encounter Visit Diagnoses Not on filedocumented in this encounter Care Teams Cleat Thrower Relationship Specialty Start Date End Date Ilan Whitley DO [address] [place] [phone] PCP - General 09/07/09 07/31/20 documented as of this encounter
--- OUTSIDE RECORDS SUMMARY | 2024-10-30 02:34 | XMS_ITS | Encounter Summary ---
Author Organization [facility] Address [address] [place] [address] Care Team Providers Care Blanket Inspector Name Role Phone Ilan Whitley DO Primary Care Provider Reason for Visit * Reason Onset Date Comments Spasms 07/07/2012 Encounter Details Date Type Department Care Team (Late st Contact Info) Description 07/07/2012 Telephone [facility] Internal Medicine [place] [id number] [place] [address] Ilan Whitley, [address] [facility] [address] [place] [address] Spasms Social History Tobacco Use Types Packs/Day Years [...] * Telephone Encounter - Pat Higgins - 07/07/2012 3:58 PM CDT Pt notified and sent to clara * Telephone Encounter - Ilan Whitley DO - 07/07/2012 2:55 PM CDT S[facility] [address] Q[address] Prn * Telephone Encounter - Pat Higgins - 07/07/2012 2:48 PM CDT X 1 week Muscles spasms feels like he has knots in back; Wants muscle relaxer - Has tried ativan - did not help; does want anything that is a derivative of benzodidine or codien and State he only wants about 3 days worth documented in this encounter Plan of Treatment Upcoming Encounters Date Type Department Care Team (Late st Contact Info) Description 12/13/2024 9:45 AM HANDHOLE MACHINE OPERATOR Office Visit [facility] Oncology and Hematology - [place] [address] [facility] [address] [place] [address] Glenn Al MD [address] [facility] [address] [place] [address] documented as of this encounter Visit Diagnoses Not on filedocumented in this encounter Care Teams Blanket Inspector Relationship Specialty Start Date End Date Ilan Whitley DO [address] [place] [address] PCP - General 09/07/09 07/31/20 documented as of this encounter
--- OUTSIDE RECORDS SUMMARY | 2024-10-30 02:34 | XMS_ITS | Encounter Summary ---
Author Organization [facility] Address [address] [place] [address] Care Team Providers Care Salesperson Yard Goods Name Role Phone Ilan Whitley DO Primary Care Provider Encounter Details Date Type Department Care Team (Late st Contact Info) Description 11/26/2011 Abstract [facility] Internal Medicine [facility] [address] [address] [facility] [address] [place] [phone] Ilan Whitley DO [address] [facility] [address] [place] [address] Social History Tobacco Use Types [...] st Contact Info) Description 12/13/2024 9:45 AM BAND DIRECTOR Office Visit [facility] Oncology and Hematology - [place] [address] [place] [address] Glenn Al MD [address] [facility] [address] [place] [address] documented as of this encounter Procedures Procedure Name Priority Date/Time Associated Diagnosis Comments MISCELLANEOUS LAB TEST Routine 08/29/2011 documented in this encounter Results * MISCELLANEOUS LAB TEST (08/29/2011) MISCELLANEOUS LAB TEST EXTERNAL LAB SPECIMEN TYPE EXTERNAL LAB MISCELLANEOUS LAB TEST EXTERNAL LAB Specimen of unknown material (specimen) Sandy Crocker MD CHEMISTRY ORDERABLES EXTERNAL LAB documented in this encounter Visit Diagnoses Not on filedocumented in this encounter Care Teams Salesperson Yard Goods Relationship Specialty Start Date End Date Ilan Whitley DO [address] [place] [address] PCP - General 09/07/09 07/31/20 documented as of this encounter
--- OUTSIDE RECORDS SUMMARY | 2024-10-30 02:34 | XMS_ITS | Encounter Summary ---
Author Organization [facility] Address [address] [place] [address] Care Team Providers Care E Commerce Director Name Role Phone Ilan Whitley DO Primary Care Provider Encounter Details Date Type Department Care Team (Late st Contact Info) Description 07/15/2011 Abstract [facility] [address] [address] [facility] [address] [place] [phone] Ilan Whitley DO [address] [facility] [address] [place] [address] Social History Tobacco Use Types [...] st Contact Info) Description 12/13/2024 9:45 AM IMPLEMENTATION LEAD Office Visit [facility] Oncology and Hematology - [place] [address] [place] [address] Glenn Al MD [address] [facility] [address] [place] [address] documented as of this encounter Procedures Procedure Name Priority Date/Time Associated Diagnosis Comments HOLTER MONITOR Routine 06/16/2011 documented in this encounter Results * HOLTER MONITOR (06/16/2011) Stl Other CARDIAC SERVICES ORD ERABLES EXTERNAL RADIOLOGY documented in this encounter Visit Diagnoses Not on filedocumented in this encounter Care Teams E Commerce Director Relationship Specialty Start Date End Date Ilan Whitley DO [address] [place] [phone] PCP - General 09/07/09 07/31/20 documented as of this encounter
--- OUTSIDE RECORDS SUMMARY | 2024-10-30 02:34 | XMS_ITS | Encounter Summary ---
Author Organization [facility] Address [address] [place] [address] Care Team Providers Care Rv Detailer Name Role Phone Ilan Lawler DO Primary Care Provider Reason for Visit * Reason Onset Date Comments Results 12/03/2012 Encounter Details Date Type Department Care Team (Late st Contact Info) Description 12/03/2012 Telephone [facility] Internal Medicine [place] [address] [address] Ilan Lawler, DO [address] [facility] [address] [place] [address] Results Social History Tobacco Use Types [...] * Telephone Encounter - Trisha Fraser - 12/03/2012 2:41 PM CST Pt aware of results/ MB ERENCE SERVICE COORDINATOR * Telephone Encounter - Trisha Fraser - 12/03/2012 2:40 PM CST Message copied by TRISHA FRASER on ThuDec 03, 2012 2:40 PM ------ Message from: ILAN LAWLER Created: ThuDec 03, 2012 7:37 AM psa great < 0.1 ERENCE SERVICE COORDINATOR documented in this encounter Plan of Treatment Upcoming Encounters Date Type Department Care Team (Late st Contact Info) Description 12/13/2024 9:45 AM CONFERENCE SERVICE COORDINATOR Office Visit [facility] Oncology and Hematology - [place] [address] [facility] [address] [place] [address] Glenn Al MD [address] [facility] [address] [place] [address] documented as of this encounter Visit Diagnoses Not on filedocumented in this encounter Care Teams Rv Detailer Relationship Specialty Start Date End Date Ilan Lawler DO [address] [place] [address] PCP - General 09/07/09 07/31/20 documented as of this encounter
--- OUTSIDE RECORDS SUMMARY | 2024-10-30 02:34 | XMS_ITS | Encounter Summary ---
Author Organization [facility] Address [address] [place] [address] Care Team Providers Care Basket Bottom Machine Operator Name Role Phone Ilan Whitley DO Primary Care Provider Reason for Visit * Reason Comments Other irregular heart beat Encounter Details Date Type Department Care Team (Late st Contact Info) Description 11/25/2011 2:30 PM PIT FURNACE OPERATOR Office Visit [facility] Internal Medicine [facility] [address] [address] [facility] [address] [place] [address] Ilan Whitley DO [address] [facility] [address] [place] [address] HTN (hypertension); Pressure in head; Headache; Neck pain Social History Tobacco Use Types Packs/Day Years [...] Sign Reading Time Taken Comments Blood Pressure 122/72 11/25/2011 2:46 PM PIT FURNACE OPERATOR Pulse - - Temperature - - Respiratory Rate - - Oxygen Saturation - - Inhaled Oxygen Concentration - - Weight 76.7 kg (169 lb) 11/25/2011 2:35 PM PIT FURNACE OPERATOR Height 170.2 cm (5' 7 ) 11/25/2011 2:35 PM PIT FURNACE OPERATOR Body Mass Index 26.47 11/25/2011 2:35 PM PIT FURNACE OPERATOR documented in this encounter Progress Notes * Gutierrez Ilan S, DO - 11/25/2011 2:43 PM CST HISTORY OF PRESENT ILLNESS Ilan Mccauley, a 71 y.o. male. HPI Hypertension Hypertension-related review: taking medications as instructed, no side effects of medications, no chest pain on exertion, no dyspnea on exertion, no edema, no chest pain on exertion, no intermittent claudication symptoms, no orthopnea or paroxysmal nocturnal dyspnea, notes orthostatic dizziness or lightheadedness, notes possible neurological symptoms with new onset JUNIOR and pressure in head . Patient Active Problem List Diagnoses Code ??? [...] to Visit Medication Sig Dispense Refill ??? finasteride (PROSCAR) 5 mg Oral tablet [...] extremely ill ??? Bystolic (Nebivolol) Bradycardia Past Surgical History Procedure Date ??? Chg colonoscopy,biopsy 2007 polyps ??? Hx appendectomy ??? Stress echo w contrast 06/12 wnl ??? Us renal + doppler 06/12 R renal art stenosis L ok ??? Holter monitor wnl History Substance Use Topics ??? Smoking status: Former Smoker Quit date: 11/02/1967 ??? Smokeless tobacco: Never Used ??? Alcohol Use: No No results found for this basename: CREAT, CREATPOC, BUN, BUNPOC, NA, K, KPOC, CL, CO2, CREATCLEAR,[id number], GFR No results found for this basename: WBC, MANUALWBC, HGB, HGBPOC, HCT, HCTPOC, PLT, MCV, IRON, TIBC,FERRITIN No results found for this basename: ALT, AST, GGT, ALKPHOS, BILIDIRECT, BILIURUBINDI, BILIINDIRECT,BILITOTAL No results found for this basename: TSH, TSHULTRA, THYROIDSTIM, T3, T3FREE, Z1GSVTOK, T4, T4FREE, TPO, THROIDAB, THYROIDMI REVIEW OF SYSTEMS Review of Systems Constitutional: Positive for fatigue. Negative for fever, chills, appetite change and unexpected weight change. HENT: Negative for sore throat. Cardiovascular: Positive for palpitations. Gastrointestinal: Negative for abdominal pain. Genitourinary: Negative for hematuria and flank pain. Neurological: Positive for light-headedness and headaches. Negative for weakness. Hematological: Does not bruise/bleed easily. PHYSICAL EXAM Ht 5' 7 (1.702 m) Wt 169 lb (76.658 kg) BMI 26.47 kg/m2 Physical Exam Constitutional: He appears well-developed and well-nourished. HENT: Head: Normocephalic and atraumatic. Mouth/Throat: Oropharynx is clear and moist. No oropharyngeal exudate. Eyes: Conjunctivae are normal. Neck: No thyromegaly present. Cardiovascular: Normal rate, regular rhythm and normal heart sounds. Pulmonary/Chest: Effort normal and breath sounds normal. No respiratory distress. He has no wheezes. He exhibits no tenderness. Abdominal: Soft. He exhibits no mass. No tenderness. Musculoskeletal: He exhibits no edema. Lymphadenopathy: He has no cervical adenopathy. Skin: No rash noted. ASSESSMENT and PLAN: 1. HTN (hypertension) (401.9) 2. Pressure in head (784.0) CT HEAD WO CONTRAST 3. Headache (784.0) CT HEAD WO CONTRAST 4. Neck pain (723.1) CT HEAD WO CONTRAST Will do Head CT Will cont med wh are diovan 320, aldactone 12.5 And HCTZ 25. probaly sl vol depletion casuing Inc in HR with activity FURNACE OPERATOR documented in this encounter Plan of Treatment Upcoming Encounters Date Type Department Care Team (Late st Contact Info) Description 12/13/2024 9:45 AM PIT FURNACE OPERATOR Office Visit [facility] Oncology and Hematology [facility] [address] [facility] 200 [place] [phone] Glenn Al MD 2[address] [facility] [address] [place] [address] documented as of this encounter Visit Diagnoses Diagnosis HTN (hypertension) Unspecified essential hypertension Pressure in head Headache Headache(784.0) Headache Neck pain Cervicalgia documented in this encounter Care Teams Basket Bottom Machine Operator Relationship Specialty Start Date End Date Ilan Whitley DO [address] [place] [address] PCP - General 09/07/09 07/31/20 documented as of this encounter
--- OUTSIDE RECORDS SUMMARY | 2024-10-30 02:34 | XMS_ITS | Encounter Summary ---
Author Organization [facility] Address [address] [place] [address] Care Team Providers Care Nurse Consultant Name Role Phone ConnieIlan land DO Primary Care Provider Reason for Visit * Reason Onset Date Comments Hypertension 08/01/2011 Encounter Details Date Type Department Care Team (Late st Contact Info) Description 08/01/2011 Telephone [facility] Heart and Vascular At [address] [place] [address] Kailee Le, RN Hypertension Social History Tobacco Use Types Packs/Day Years [...] Telephone Encounter - Kailee Le, RN - 08/01/2011 2:55 PM CDT Pt calls on his way back from ER in [place]. He is confused about the Lisinopril dosage he was sent home with. He was told to take 10mg Lisinopril, but is worried it will not be enough to get his BP down.He was previously on 20mg Lisinopril 03/12 to 05/12. Spoke to Dr Mishra who suggested he take 10 mg when he arrives home, then take BP 4-6 hours later. Assess BP at that time. He can matt [id number] mg Lisinopril to equal 20 mg for the day if BP elevated . He should take 20 mg once daily only if necessary. Dr Mishra wants Dr Whitley to be made aware of recent episodes documented in this encounter Plan of Treatment Upcoming Encounters Date Type Department Care Team (Late st Contact Info) Description 12/13/2024 9:45 AM OFFICIAL GREETER Office Visit [facility] Oncology and Hematology - [place] [address] [facility] [address] [place] [address] Glenn Al MD [address] [facility] [address] [place] [address] documented as of this encounter Visit Diagnoses Not on filedocumented in this encounter Care Teams Nurse Consultant Relationship Specialty Start Date End Date Ilan Whitley DO [address] [place] [address] PCP - General 09/07/09 07/31/20 documented as of this encounter
--- OUTSIDE RECORDS SUMMARY | 2024-10-30 02:34 | XMS_ITS | Encounter Summary ---
Author Organization [facility] Address [address] [place] [address] Care Team Providers Care Chemistry Faculty Member Name Role Phone Nabor Whitley Merry Primary Care Provider Reason for Visit * Auth/Cert - Closed Specialty Diagnoses / Procedures Referred By Cecile t Referred To Contact General Surgery Diagnoses PROSTATE CANCER Procedures PROSTATECTOMY RADICAL DAVINCI SI LAPAROSCOPIC St Main Or [address] [place] [address] Referral ID Status Reason Start Date Expiration Date Visits Re quested Visits Authorized [id number] Closed 1 1 Encounter Details Date Type Department Care Team (Late st Contact Info) Description 07/20/2012 10:32 AM CDT - 07/20/2012 1:47 PM CDT Surgery [facility] Operating Room [address] [place] [address] Giancarlo Dominguez MD [address] [address] PROSTATECTOMY RADICAL ROBOTIC SI Surgery Details Date/Time Status Location OR Service Patient Class Case Class Case Type Trauma Case? 07/20/2012 10:32 AM Posted [facility] OR MAIN OR 16 Urology Surgery Admit Elective No Panel 1 Procedure LRB Anes Op Region Wound Class Comments PROSTATECTOMY RADICAL ROBOTIC SI N/A General Pelvis Clean-I LYMPH NODE DISSECTION ROBOTIC SI N/A General Pelvis Clean-I Surgeon Surgeon Role Service Panel Giancarlo Dominguez MD Primary Urology 1 Case Notes MEDICARE, UMR,NN FOR BOTH, CPT: 92553, 08440 documented in this encounter Social History Tobacco [...] Sign Reading Time Taken Comments Blood Pressure 109/59 07/20/2012 1:41 PM CDT Pulse 71 07/20/2012 1:41 PM CDT Temperature 36.1 ??C (97 ??F) 07/20/2012 1:41 PM CDT Respiratory Rate 14 07/20/2012 1:41 PM CDT Oxygen Saturation 98% 07/20/2012 1:41 PM CDT Inhaled Oxygen Concentration - - Weight 69.9 kg (154 lb) 07/20/2012 8:02 AM CDT Height 168.9 cm (5' 6.5 ) 07/08/2012 12:31 PM CD T Body Mass Index 24.48 07/08/2012 12:31 PM CDT documented in this encounter Discharge Summaries * Nicki Scott PA - 07/21/2012 7:19 AM CDT [facility] Discharge Summary Patient: Nabor Mccauley / 71 y.o. / male : 1940 CSN: [id number] Admission date: 07/20/2012 Discharge date: 07/21/2012 Principal [...] Gutiérrez RN - 07/21/2012 10:26 AM CDT [facility], [facility] - [facility] Office - [facility] Place - , [phone], or [phone] Exchange: Call the office number and you will be forwarded to the Exchange when the office is closed [facility] - [facility] - [phone] [facility] Sexual Health - POST DAVINCI RADICAL PROSTATECTOMY SURGERY [...] can be purchased at many stores (i.e. [employer], drug [employer], etc.). Pelvic Muscle Exercises To Improve Bladder [...] as of this encounter Progress Notes * Heather Burgess, [facility] - 08/05/2012 5:42 PM CDT * Nicki [...] 350 mg Oral q 8 hour PRN iGancarlo Dominguez MD 350 mg at 526 ??? [...] this encounter H&P Notes * Stl Scanning, [facility] - 07/25/2012 7:14 PM CDT Electronically signed by [employer] [facility] Stl College Administrator Incoming at 07/25/2012 7:14 PM CDT * Stl Scanning, [facility] - 07/25/2012 5:53 AM CDT Electronically signed by Ronny [facility] Stl College Administrator Incoming at 07/25/2012 5:53 AM CDT documented in this encounter Procedure Notes * Stl Scanning, [facility] - 07/23/2012 7:52 PM CDTAssociated Order(s): PATHOLOGY Electronically signed by [employer] [facility] Stl College Administrator Incoming at 07/23/2012 7:52 PM CDT documented in this encounter OR Notes * OR Anesthesia - Stl Scanning, [facility] - 07/25/2012 7:14 PM CDT Electronically signed by Ronny [facility] Stl College Administrator Incoming at 07/25/2012 7:14 PM CDT * [...] Resp: 16 (07/20/12 1234)SpO2: 100 % (07/20/12 123) CARDIOVASCULAR FUNCTION: Heart Rate (Monitored): 85 bpm [...] 0802) Presence of Pain: denies pain/discomfort (07/20/12 123) NAUSEA AND VOMITING: POSTOPERATIVE HYDRATION: Intake/Output Summary (Last 24 hours) at 07/20/12 1303 Last data filed at 07/20/12 1207 Gross per 24 hour Intake 1800 ml Output 100 ml Net 1700 ml Modified Jennifer Score: Score: 10 (07/20/12 1300) COMMENTS: No apparent Anesthesia related complications Jimi Haley, 07/20/2012 1:03 PM * Operative Report - Giancarlo Dominguez MD - 07/20/2012 12:46 PM CDT Operative Note Patient Name: Nabor Mccauley CSN: [id number] Date of Procedure: 07/20/2012 Preoperative diagnosis: Prostate cancer Postoperative diagnoses: Prostate cancer Procedure: da Mary laparoscopic radical prostatectomy plus bilateral lymph node sampling Surgeon: Dr. Giancarlo Dominguez M.D. Telemarketer Supervisor: Nicki Scott PA-C Anesthesia: general with local [...] positioned. He was then prepped and dr aped in a sterile manner. A 20-Romansh Bryant catheter was then placed to dependent drainage without difficulty. I then made a midline supraumbilical incision and carried this down to the fascia. A Veress needle was then placed into the abdomen without difficulty. The fluid drop test was not normal.Given his prior surgery, I elected to do a Cezar technique and entered the abdomen directly. I then placed a balloon trocar into the abdomen. I used the camera to make sure that I was in the abdomen. The abdomen was then insufflated without difficulty. I inspected the abdomen and there is no overtvisceral or vascular injuries noted. He had adhesions in the right lower quadrant probably from his prior appendectomy. We placed the left arm da Mary port and 12 mm port in the left lower quadrant.I took down the adhesions sharply taking care [...] The node package was extracted through the assistant project manager's 12-mm port . I then performed a [...] not present. This came back as negative. LJA * Linda-OP - Mikael Petty RN - 07/20/2012 9:48 AM CDT Libia Dominguez Prostatectomy Intra-Op Medications ---Bupivacaine (MARCAINE, SENSORCAINE) 0.5% Injection @ operative site(s), 30mL given. ---Warmed 0.9% Sodium Chloride Irrigation 1000mL for Davol. ---0.9% Sodium Chloride Irrigation 1000mL on field. ---Belladonna and Opium 16.2mg/60mg Suppository inserted rectally by Dr. Dominguez (9000) PREP --ChloraPrep bilateral abdomen, penis, scrotum, inner [...] Nabor Mccauley Age: 71 y.o. Sex: male [facility]: [id number] Procedure: Procedure(s): PROSTATECTOMY RADICAL DAVINCI SI LAPAROSCOPIC LYMPH NODE DISSECTION DAVINCI SI LAPAROSCOPIC Surgeons/Assistants: Surgeon(s) and Role: * [...] Temporomandibular joint disorders, unspecified ??? Atrial fibrillation ?2011 pt states may be inaccurate dx as [...] Notes * Scanned Form - Stl Scanning, [facility] - 07/25/2012 7:14 PM CDT Electronically signed by [employer] [facility] Stl College Administrator Incoming at 07/25/2012 7:14 PM CDT * Patient Instructions - Stl Scanning, [facility] - 07/25/2012 7:14 PM CDT Electronically signed by [employer], [facility] Stl College Administrator Incoming at 07/25/2012 7:14 PM CDT * Scanned Form - Stl Scanning, [facility] - 07/25/2012 7:14 PM CDT Electronically signed by [employer], [facility] Stl College Administrator Incoming at 07/25/2012 7:14 PM CDT * Scanned Form - Stl Scanning, [facility] - 07/25/2012 7:14 PM CDT Electronically signed by [employer], [facility] Stl College Administrator Incoming at 07/25/2012 7:14 PM CDT * [...] Review (Adult, Obstetrics) The patient and/or their office services representative will communicate an understanding of their plan of care prior to discharge. Outcome: Progressing Pt will be discharged with bryant cather. * Care Plan - Ingrid Gutiérrez RN - 07/20/2012 2:05 PM CDT Problem: General Plan of Care (Adult, Obstetrics) Goal: Individualization/Patient-Specific Goal (Adult, Obstetrics) The patient and/or their office services representative will achieve their patient-specific goals related to the plan of care. The patient-specific goals include: pt will be able to manage bryant catheter care and leg bag changes prior to discharge. Outcome: Not Progressing Teaching not performed yet. Pt just received from pacu * Care Luis - Jaelyn Edward RN - 07/20/2012 1:03 PM CDT Potential for pain related to surgical/procedural intervention Interventions: Assess level of pain/comfort utilizing verbal/nonverbal pain scales; assess culturalor hinduism indicators attached to pain; administer pain medications [...] st Contact Info) Description 12/13/2024 9:45 AM IOS SOFTWARE ENGINEER Office Visit [facility] Oncology and Hematology - Josep [address] [facility] [address] [place] [address] Glenn Al MD [address] [facility] [address] [place] [address] documented as of this encounter Procedures Procedure Name Priority Date/Time Associated Diagnosis Comments HEMOGLOBIN AND HEMATOCRIT Routine 07/21/2012 3:57 AM CDT BASIC METABOLIC PANEL Routine 07/21/2012 3:57 AM CDT PATHOLOGY Routine 07/20/2012 12:59 PM CDT SODIUM LEVEL Stat 07/20/2012 8:20 AM CDT LYMPH NODE DISSECTION ROBOTIC SI 07/20/2012 8:15 AM CDT PROSTATE CANCER Case Notes MEDICARE, UMR,NN FOR BOTH, CPT: 87994, 35160 PROSTATECTOMY RADICAL ROBOTIC SI 07/20/2012 8:15 AM CDT PROSTATE CANCER Case Notes MEDICARE, UMR,NN FOR BOTH, CPT: 18970, 65048 documented in this encounter Results * (ABNORMAL) BASIC METABOLIC PANEL (07/21/2012 3:57 AM CDT) SODIUM 137 135 - 145 mmol/L [facility] POTASSIUM 3.6 3.5 - 4.9 mmol/L [facility] CHLORIDE 101 96 - 108 mmol/L [facility] CO2 31(H) 22 - 30 mmol/L [facility] CALCIUM 7.5(L) 8.6 - 10.2 mg/dL [facility] BUN 9 6 - 20 mg/dL [facility] CREATININE 0.75 0.67 - 1.17 mg/dL [facility] GLUCOSE 90 65 - 99 mg/dL [facility] GFR, >60 >=60 mL/min/1. 7 sq meter [facility] GFR >60 >=60 mL/min/1. 7 sq meter [facility] Comment: GFR is calculated using the IDMS-Traceable Modification of Diet in Renal Disease (MDRD) Study formula and is only valid for patients 18 years or older. Further interpretative information is available in the Laboratory Services Policy Manual on the [facility] Intranet at: http://[facility]-intranet.[facility]/ Blood specimen (specimen) 07/21/2012 3:57 AM CDT 07/21/2012 4:13 AM CDT Giancarlo Dominguez MD CHEMISTRY ORDERABLES Performing Organization Address [facility]/ZIP Co de Phone Number [facility]# [id number] [address] [place] [address] * (ABNORMAL) HEMOGLOBIN AND HEMATOCRIT (07/21/2012 3:57 AM CDT) HEMOGLOBIN 11.0(L) 13.6 - 16.5 g/dL [facility] HEMATOCRIT 33.8(L) 40.0 - 48.0 % [facility] Blood specimen (specimen) 07/21/2012 3:57 AM CDT 07/21/2012 4:13 AM CDT Giancarlo Dominguez MD HEMATOLOGY ORDERABLE S Performing Organization Address [facility] Co de Phone Number [facility]# [id number] [address] [place] [address] * PATHOLOGY (07/20/2012 12:59 PM CDT) SURGICAL PATHOLOGY ?[facility] ?[address] ? . [place], [place] ??[id number] ? Patient: ??NABOR MCCAULEY ? : ??1940 ? Procedure Date: ??07/20/2012 ? Accession Date: ??07/20/2012 ? Case No: ??[id number] ? Ordering Dr: ??GIANCARLO DOMINGUEZ ? Case type SW is performed by [address], ? [place], [place] ??[address]; all other case types are performed by [facility] ? [facility], [address], [place] ??[address] ?SURGICAL PATHOLOGY & NON-GYNECOLOGIC CYTOPATHOLOGY REPORT ? [...] No tumor seen. ? GL ? KLA/TMZ 07.21.2011 09:16 am ? Gross: ? Three containers [...] urethral margin, perpendicular sections; ? A5 through O56-nyda half of prostate from apex to base; [...] remnant is submitted in cassette CFS1. ? KLA/ELISSA 07.21.2012 09:16 am ? Microscopic: ? Received are slides labeled [id number] Michael. ? Sections of prostate show the presence of adenocarcinoma involving the ? bilateral prostate glands. The largest focus is within the left ? posterolateral apical to mid prostate, and has a combined Florin pattern ? score 8 (4+4). Smaller foci are also present within the right ? posterolateral apical to mid prostate, the larger of which has a combined ? Waskish pattern score 7 (3+4). Extraprostatic extension is [...] NOS). ? Histologic Grade: Dominant nodule: combined Florin pattern score 8 ? (4+4); Secondary nodule: [...] Number examined 2; Number involved 0. ? STM/LKP 07.22.2012 04:50 pm ? Staging Form: ? Yes. ? ELECTRONIC SIGNATURE FOR KEEGAN WAYNE M.D.- 07/23/12 06:32 pm [facility] Specimen of unknown material (specimen) 07/20/2012 12:59 PM CDT Narrative Transcriptions Stl Scanning, Him - 07/23/2012 7:52 PM CDT Giancarlo Dominguez MD PATHOLOGY/CYTOLOGY O RDERABLES Performing Organization Address [facility]/ZIP Co de Phone Number [facility] CLIA# [id number] [address] [place] [address] * SODIUM LEVEL (07/20/2012 8:20 AM CDT) SODIUM 139 135 - 145 mmol/L [facility] Blood specimen (specimen) 07/20/2012 8:20 AM CDT 07/20/2012 8:25 AM CDT Giancarlo Dominguez MD CHEMISTRY ORDERABLES Performing Organization Address [facility] Co de Phone Number [facility]# [id number] [address] [place] [address] documented in this encounter Visit Diagnoses Not on filedocumented in this encounter Active and Recently Administered Medications Times are shown in CDT. Scheduled Medication Order 07/19/2012 07/20/2012 07/21/2012 ceFAZolin (ANCEF) IVPB 2,000 mg (COMPLETED) 2,000 mg, IV, PRE-PROCEDURE ONCE, 1 dose, Starting on Thu07/20/12 at 0846, Until Thu07/20/12 at 0940, Routine 0910 (Given - Provider: Terence J Zweifel, AA-C) ceFAZolin (ANCEF) IVPB 2,000 mg (COMPLETED) 2,000 mg, IV, POST-PROCEDURE Q 8 HOURS, 2 doses, First dose on Thu07/20/12 at 1600, Last dose on Thu07/21/12 at 0000, Routine 1526 (Given - Provider: Ingrid Gutiérrez RN)2321 (Given - Provider: Rosibel Coronel RN - Comment: stopped @ 2351) ketorolac (TORADOL) injection 15 mg (CANCELED) 15 [...] Discontinued, Routine 1600 (Refused - Provider: Ingrid Gutiérrez RN)2100 (Refused - Provider: Isi Radford RN) 0600 (Refused - Provider: Isi Radford RN)0724 (Given - Provider: Ingrid Gutiérrez RN) Continuous Medication Order 07/19/2012 07/20/2012 07/21/2012 lactated ringers solution (CANCELED) IV, at 75 mL/hr, CONTINUOUS, Starting on Thu07/20/12 at 1345, Until Thu07/21/12 at 1206, Routine 1345 (Rate Change - Provider: Ingrid Gutiérrez RN)1921 (New Bag - Provider: Isi Radford RN) 0317 (Bag Switched - Provider: Harriet Sandoval RN)0717 (Rate Change - Provider: Ingrid Gutiérrez RN)1006 (Stopped - Provider: Ingrid Gutiérrez RN) PRN Medication Order 07/19/2012 07/20/2012 07/21/2012 carisoprodol (SOMA) tablet 350 mg (CANCELED) 350 mg, Oral, EVERY 8 HOURS PRN, Starting on Thu07/20/12 at 1340, Until Thu07/21/12 at 1206, Spasm, Routine 1526 (Given - Provider: Annetta la J Brock, RN) HYDROcodone-acetaminophen (NORCO) 5-325 mg per tablet 1 Tab (CANCELED) 1 Tablet, Oral, EVERY 4 HOURS PRN, Starting on Thu07/20/12 at 1903, Until Thu07/21/12 at 1206, Pain, Moderate, Routine 2313 (Given - Provider: Kevin Coronel RN) documented in this encounter Care Teams Chemistry Faculty Member Relationship Specialty Start Date End Date Nabor Whitley DO [address] [place] [phone] PCP - General 09/07/09 07/31/20 documented as of this encounter
--- OUTSIDE RECORDS SUMMARY | 2024-10-30 02:34 | XMS_ITS | Encounter Summary ---
Author Organization [facility] Address [address] [place] [address] Care Team Providers Care 2 Year Olds Preschool Teacher Name Role Phone Ilan Whitley DO Primary Care Provider Encounter Details Date Type Department Care Team (Late st Contact Info) Description 07/27/2012 Abstract [facility] Internal Medicine [facility] [address] [address] [facility] [address] [place] [phone] Ilan Whitley DO [address] [facility] [address] [place] [address] Social History Tobacco Use Types [...] st Contact Info) Description 12/13/2024 9:45 AM FAMILY DAY CARE PROVIDER Office Visit [facility] Oncology and Hematology - Josep [address] [place] [address] Glenn Al MD [address] [facility] [address] [place] [address] documented as of this encounter Visit Diagnoses Not on filedocumented in this encounter Care Teams 2 Year Olds Preschool Teacher Relationship Specialty Start Date End Date Ilan Whitley DO [address] [facility] [address] [place] [phone] PCP - General 09/07/09 07/31/20 documented as of this encounter
--- OUTSIDE RECORDS SUMMARY | 2024-10-30 02:34 | XMS_ITS | Encounter Summary ---
Author Organization [facility] Address [address] [place] [address] Care Team Providers Care Waste Machine Offbearer Name Role Phone Ilan Whitley DO Primary Care Provider Reason for Visit * Reason Onset Date Comments Labs Only 03/03/2013 Encounter Details Date Type Department Care Team (Late st Contact Info) Description 03/03/2013 Telephone [facility] Internal Medicine [place] [id number] [place] [address] Ilan Whitley, DO [address] [facility] [address] [place] [address] Labs Only Social History Tobacco [...] * Telephone Encounter - Pat Higgins - 03/03/2013 12:14 PM CDT Faxed order.ker * Telephone Encounter - Pat Higgins - 03/03/2013 11:34 AM CDT Pt calling for PSA order - wants sent to [email or web address]; Last psa was nov 2012 - still ok to order? documented in this encounter Plan of Treatment Upcoming Encounters Date Type Department Care Team (Late st Contact Info) Description 12/13/2024 9:45 AM SENIOR PHP SOFTWARE DEVELOPER Office Visit [facility] Oncology and Hematology [facility] [address] [facility] [address] [place] [address] Glenn Al MD [address] [facility] [address] [place] [address] Scheduled Orders Name Type Priority Associated Diagnoses Orde r Schedule PSA MEDICARE SCREEN Lab Routine Prostate cancer BPH (benign prostatic hyperplasia) Special screening for malignant neoplasm of prostate Ordered: 03/03/2013 documented as of this encounter Procedures Procedure Name Priority Date/Time Associated Diagnosis Comments PSA Routine 03/07/2013 8:39 AM CDT documented in this encounter Results * PSA (03/07/2013 8:39 AM CDT) PSA <0.1 < OR = 4.0 ng/mL [facility] Comment: This test was performed using the Siemens chemiluminescent method. Values obtained from different assay methods cannot be used interchangeably. PSA levels, regardless of value, should not be interpreted as absolute evidence of the presence or absence of disease. Test Performed at: [facility] [address] ??[address] OLIVIA DU DO,MPH 03/07/2013 8:39 AM CDT Ilan Whitley DO CHEMISTRY [employer] Refer to clinic/hospital department [facility] [address] [place] [address] documented in this encounter Visit Diagnoses Diagnosis Prostate cancer- Primary Malignant neoplasm of prostate BPH (benign prostatic hyperplasia) Unspecified hyperplasia of prostate without urinary obstruction and other lower urinary tract symptoms (LUTS) Special screening for malignant neoplasm of prostate documented in this encounter Care Teams Waste Machine Offbearer Relationship Specialty Start Date End Date Ilan Whitley DO [address] [place] [address] PCP - General 09/07/09 07/31/20 documented as of this encounter
--- OUTSIDE RECORDS SUMMARY | 2024-10-30 02:34 | XMS_ITS | Encounter Summary ---
Author Organization [facility] Address [address] [place] [address] Care Team Providers Care Electric Razor Assembler Name Role Phone Ilan Whitley DO Primary Care Provider Encounter Details Date Type Department Care Team (Late Contact Info) Description 07/19/2013 Abstract [facility] Internal Medicine [facility] [id number] [address] Provider, Abstract NO ADDRESS ON [...] (Late Contact Info) Description 12/13/2024 9:45 AM COUNTERPERSON Office Visit [facility] Oncology and Hematology - Josep [address] [facility] [address] [place] [address] Glenn Al MD [address] [facility] [address] [place] [address] documented as of this encounter Visit Diagnoses Not on filedocumented in this encounter Care Teams Electric Razor Assembler Relationship Specialty Start Date End Date Ilan Whitley DO [address] [place] [address] PCP - General 09/07/09 07/31/20 documented as of this encounter
--- OUTSIDE RECORDS SUMMARY | 2024-10-30 02:34 | XMS_ITS | Encounter Summary ---
Author Organization [facility] Address [address] [place] [address] Care Team Providers Care Acoustic Warfare Analyst Name Role Phone Ilan Whitley DO Primary Care Provider Encounter Details Date Type Department Care Team (Late st Contact Info) Description 09/20/2012 Abstract [facility] Internal Medicine [facility] [address] [address] [facility] [address] [place] [phone] Ilan Whitley DO [address] [facility] [address] [place] [address] Social History Tobacco Use Types [...] st Contact Info) Description 12/13/2024 9:45 AM CORN SHELLER OPERATOR Office Visit [facility] Oncology and Hematology - Josep [address] [place] [address] Glenn Al MD [address] [facility] [address] [place] [address] documented as of this encounter Visit Diagnoses Not on filedocumented in this encounter Care Teams Acoustic Warfare Analyst Relationship Specialty Start Date End Date Ilan Whitley DO [address] [facility] [address] [place] [phone] PCP - General 09/07/09 07/31/20 documented as of this encounter
--- OUTSIDE RECORDS SUMMARY | 2024-10-30 02:34 | XMS_ITS | Encounter Summary ---
Author Organization [facility] Address [address] [place] [address] Care Team Providers Care Grease Press Helper Name Role Phone GutierrezIlan DO Primary Care Provider Reason for Visit * Reason Onset Date Comments Heart Problem 08/25/2011 Encounter Details Date Type Department Care Team (Late st Contact Info) Description 08/25/2011 Telephone [facility] Heart and Vascular At [facility] [address] [facility] [address] [place] [phone] Olman Corcoran MD [facility] [address] [facility] [address] [place] [address] Heart Problem Social History Tobacco Use Types Packs/Day [...] encounter Miscellaneous Notes * Telephone Encounter - Olman Corcoran MD - 08/25/2011 6:04 AM CDT Patient of Dr. Mishra Patient called BP 180/120. Had no CV sxs, howeverwas very concerned, very anxoius Instructed to take extra dose of captopril (currently on 37.5 mg tid) documented in this encounter Plan of Treatment Upcoming Encounters Date Type Department Care Team (Late st Contact Info) Description 12/13/2024 9:45 AM CALL OR CONTACT CENTRE COACH Office Visit [facility] Oncology and Hematology - [place] [address] [facility] [address] [place] [address] Glenn Al MD [address] [facility] [address] [place] [address] documented as of this encounter Visit Diagnoses Not on filedocumented in this encounter Care Teams Grease Press Helper Relationship Specialty Start Date End Date Ilan Whitley DO [address] [place] [address] PCP - General 09/07/09 07/31/20 documented as of this encounter
--- OUTSIDE RECORDS SUMMARY | 2024-10-30 02:34 | XMS_ITS | Encounter Summary ---
Author Organization [facility] Address [address] [place] [address] Care Team Providers Care Is Analyst Name Role Phone ConnieIlan land DO Primary Care Provider Reason for Visit * Reason Onset Date Comments Hypertension 08/20/2011 Encounter Details Date Type Department Care Team (Late st Contact Info) Description 08/20/2011 Telephone [facility] Heart and Vascular At [address] [place] [address] Kailee Le, RN Hypertension Social [...] Telephone Encounter - Kailee Le, RN - 08/20/2011 9:27 AM CDT Pt calls to request recent records to be sent to Sandy Crocker HTN specialist at [phone]. OV 08/26/11. Records sent. He states he was in ER last night with 200/100. They prescribed Lisinopril and Captopril with BP down to 130/90. Pt is calling to request Dr Mishra give him another STAN inhibitor to hold him over untilOV with Dr Crocker. He states the Captopril causes severe, side effects that he can't tolerate until the 10/25/11. He describes the side effects as Heart pounding, irregularity and extreme fatigue. I explained that Dr Mishra was on vacation until 08/25/11. He said he will call his PCP for direction. documented in this encounter Plan of Treatment Upcoming Encounters Date Type Department Care Team (Late st Contact Info) Description 12/13/2024 9:45 AM TELEVISION CABINET FINISHER Office Visit [facility] Oncology and Hematology - [place] [address] [facility] [address] [place] [address] Glenn Al MD [address] [facility] [address] [place] [address] documented as of this encounter Visit Diagnoses Not on filedocumented in this encounter Care Teams Is Analyst Relationship Specialty Start Date End Date Ilan Whitley DO [address] [place] [address] PCP - General 09/07/09 07/31/20 documented as of this encounter
--- OUTSIDE RECORDS SUMMARY | 2024-10-30 02:34 | XMS_ITS | Encounter Summary ---
Author Organization [facility] Address [address] [place] [address] Care Team Providers Care Skein Yarn Drier Name Role Phone Ilan Whitley DO Primary Care Provider Reason for Visit * Reason Comments Follow Up Encounter Details Date Type Department Care Team (Late st Contact Info) Description 06/09/2013 7:30 AM CDT Office Visit [facility] Internal Medicine [place] [id number] [place] [address] Ilan Whitley DO [address] [facility] [address] [place] [address] Personal history of prostate cancer (Primary Dx); HTN (hypertension) Social History Tobacco Use Types Packs/Day Years [...] Sign Reading Time Taken Comments Blood Pressure 138/64 06/09/2013 7:17 AM CDT Pulse - - Temperature - - Respiratory Rate - - Oxygen Saturation - - Inhaled Oxygen Concentration - - Weight - - Height - - Body Mass Index - - documented in this encounter Progress Notes * Ilan Whitley DO - 06/09/2013 7:19 AM CDT HISTORY OF PRESENT ILLNESS Ilan Mccauley, a 72 y.o. male. HPI Pt here for fu on recent labs. Pt has h/p Prostate ca With removal in 06/13. PSa have been less than0.1. Recent psa showed o.3. No sx or bone pain PPt has fu With new onc in a few weeks Hypertension Hypertension-related review: taking medications as instructed, no side effects of medications, no chest pain on exertion, no dyspnea on exertion, no edema, no chest pain on exertion, no intermittent claudication symptoms, no orthopnea or paroxysmal nocturnal dyspnea, no orthostatic dizziness or lightheadedness. Patient Active Problem List Diagnosis Code ??? BPH (Benign Prostatic Hyperplasia) 600.90 ??? Erectile Dysfunction 607.84 ??? Hyperlipidemia 272.4 ??? Special Screening for Malignant Neoplasm of Prostate V76.44 ??? Malaise and Fatigue 780.79 ??? Special Screening for Malignant Neoplasms, Colon V76.51 ??? Allergic Rhinitis 477.9 ??? HTN (hypertension) 401.9 ??? Renal artery stenosis 440.1 ??? Family history of prostate cancer V16.42 ??? Elevated PSA 790.93 ??? Personal history of prostate cancer V10.46 Patient Active Problem List Diagnosis Date Noted ??? Personal history of prostate cancer Overview [...] to Visit Medication Sig Dispense Refill ??? LORazepam (ATIVAN) 1 mg Oral tablet Take 1 Tab by mouth every 12 hours. 45 Tab 2 ??? ciprofloxacin (CIPRO) 500 mg Oral tablet Take 1 Tab by mouth 2 times daily. Start day before catheter removal. 10 Tab 0 ??? cephALEXin (KEFLEX) 500 mg Oral capsule Take 1 Cap by mouth 2 times daily. 8 Cap 0 ??? carisoprodol (SOMA) 350 mg Oral tablet [...] daily with supper. 1 po qd ??? vardenafil (LEVITRA) 20 mg Oral tablet Take 1 Tab by mouth 1 time daily as needed. 15 Tab 3 ??? UBIDECARENONE/VITAMIN E MIXED (COQ10 SG 100 PO) Take by mouth. ??? cyanocobalamin (VITAMIN B-12) 1,000 mcg Oral Tab Take 1,000 mcg by mouth daily. No current facility-administered medications on file prior to visit. Allergies Allergen Reactions ??? Codeine Nausea and Vomiting Makes patient extremely ill ??? Bystolic (Nebivolol) Bradycardia Past Surgical History Procedure Laterality Date ??? [...] LAPAROSCOPIC performed by Giancarlo Azar MD at [facility] ??? Pr lap,lymphatic system,other proc 07/20/2012 LYMPH NODE DISSECTION DAVINCI SI LAPAROSCOPIC performed by Giancarlo Azar MD at [facility] History Substance Use Topics ??? Smoking status: Former Smoker Quit date: 11/02/1967 ??? Smokeless tobacco: Never Used ??? Alcohol Use: No Lab Results Component Value Date/Time CREATININE 0.75 07/21/2012 3:57 AM No results found for this basename: CHOLTOT, HDL, LDLCALC, LDLDIRECT, TRIGLYCERIDE, ALT, AST Lab Results Component Value Date/Time CREATININE 0.75 07/21/2012 3:57 AM BUN 9 07/21/2012 3:57 AM SODIUM 137 07/21/2012 3:57 AM POTASSIUM 3.6 07/21/2012 3:57 AM CHLORIDE 101 07/21/2012 3:57 AM CO2 31* 07/21/2012 3:57 AM GFR >60 07/21/2012 3:57 AM Lab Results Component Value Date/Time WBC 7.0 10/28/2012 7:35 AM HEMOGLOBIN 14.5 10/28/2012 7:35 AM HEMATOCRIT 42.5 10/28/2012 7:35 AM PLATELETS 246 10/28/2012 7:35 AM MCV 99.2 10/28/2012 7:35 AM IRON 227* 10/28/2012 7:35 AM No results found for this basename: ALT, AST, GGT, ALKPHOS, BILIDIRECT, BILIURUBINDI, BILIINDIRECT,BILITOTAL REVIEW OF SYSTEMS Review of Systems Constitutional: Negative for fever, chills, appetite change, fatigue and unexpected weight change. HENT: Negative for ear pain, sore throat and neck pain. Respiratory: Negative for cough, shortness of breath and wheezing. Cardiovascular: Negative for chest pain, palpitations and leg swelling. Gastrointestinal: Negative for nausea, vomiting, abdominal pain and constipation. Genitourinary: Negative for hematuria and flank pain. Musculoskeletal: Negative for joint swelling. Skin: Negative for rash. Neurological: Negative for weakness and headaches. Hematological: Does not bruise/bleed easily. PHYSICAL EXAM BP 125/65 Physical Exam Constitutional: He appears well-developed and well-nourished. HENT: Head: Normocephalic and atraumatic. Mouth/Throat: Oropharynx is clear and moist. No oropharyngeal exudate. Eyes: Conjunctivae are normal. Neck: No thyromegaly present. Cardiovascular: Normal rate, regular rhythm and normal heart sounds. Pulmonary/Chest: Effort normal and breath sounds normal. No respiratory distress. He has no wheezes. He exhibits no tenderness. Abdominal: Soft. He exhibits no mass. There is no tenderness. Musculoskeletal: He exhibits no edema. Lymphadenopathy: He has no cervical adenopathy. Skin: No rash noted. ASSESSMENT and PLAN: (V10.46) Personal history of prostate cancer (401.9) HTN (hypertension) Nl well exam. Will Cont meds. Will fu with new onc for opinion on inc PSA documented in this encounter Plan of Treatment Upcoming Encounters Date Type Department Care Team (Late st Contact Info) Description 12/13/2024 9:45 AM HEADSTART TEACHER Office Visit [facility] Oncology and [facility] [address] [facility] [address] [place] [address] Glenn Al MD [address] [facility] [address] [place] [address] documented as of this encounter Visit Diagnoses Diagnosis Personal history of prostate cancer- Primary Personal history of malignant neoplasm of prostate HTN (hypertension) Unspecified essential hypertension documented in this encounter Care Teams Skein Yarn Drier Relationship Specialty Start Date End Date Ilan Whitley DO [address] [place] [address] PCP - General 09/07/09 07/31/20 documented as of this encounter
--- OUTSIDE RECORDS SUMMARY | 2024-10-30 02:34 | XMS_ITS | Encounter Summary ---
Author Organization [facility] Address [address] [place] [address] Care Team Providers Care Barkeep Name Role Phone Ilan Whitley DO Primary Care Provider Encounter Details Date Type Department Care Team (Late st Contact Info) Description 06/02/2012 Abstract [facility] Internal Medicine [facility] [address] [address] [facility] [address] [place] [address] Ilan Whitley DO [address] [facility] [address] [place] [address] Social History Tobacco Use Types [...] st Contact Info) Description 12/13/2024 9:45 AM GENERAL I FARMWORKER Office Visit [facility] Oncology and Hematology - [place] [address] [place] [address] Glenn Al MD [address] [facility] [address] [place] [address] documented as of this encounter Visit Diagnoses Not on filedocumented in this encounter Care Teams Barkeep Relationship Specialty Start Date End Date Ilan Whitley DO [address] [facility] [address] [place] [address] PCP - General 09/07/09 07/31/20 documented as of this encounter
--- OUTSIDE RECORDS SUMMARY | 2024-10-30 02:34 | XMS_ITS | Encounter Summary ---
Author Organization [facility] Address [address] [place] [address] Care Team Providers Care Surgeon/President Name Role Phone Ilan Whitley DO Primary Care Provider Reason for Visit * Reason Onset Date Comments Provider Call 06/25/2012 Encounter Details Date Type Department Care Team (Late st Contact Info) Description 06/25/2012 Telephone [facility] Internal Medicine [place] [phone] [place] [address] Ilan Whitley DO [address] [address] Provider Call Social History Tobacco Use Types Packs/Day [...] Telephone Encounter - Ilan Whitley DO - 06/25/2012 12:42 PM CDT dw pt * Telephone Encounter - Radha Cedeño - 06/25/2012 9:33 AM CDT Patient is requesting to speak with GURDEEP today about a 2nd opinion for surgery he is having. [phone] documented in this encounter Plan of Treatment Upcoming Encounters Date Type Department Care Team (Late st Contact Info) Description 12/13/2024 9:45 AM HAM TRIMMER Office Visit [facility] Oncology and Hematology [facility] [address] [facility] [address] [place] [address] Glenn Al MD [address] [facility] [address] [place] [address] documented as of this encounter Visit Diagnoses Diagnosis Prostate cancer Malignant neoplasm of prostate Elevated PSA Elevated prostate specific antigen (PSA) documented in this encounter Care Teams Surgeon/President Relationship Specialty Start Date End Date Ilan Whitley DO [address] [place] [address] PCP - General 09/07/09 07/31/20 documented as of this encounter
--- OUTSIDE RECORDS SUMMARY | 2024-10-30 02:34 | XMS_ITS | Encounter Summary ---
Author Organization [facility] Address [address] [place] [address] Care Team Providers Care Mold Carpenter Name Role Phone Ilan Whitley DO Primary Care Provider Reason for Visit * Reason Onset Date Comments Hypertension 08/20/2011 Encounter Details Date Type Department Care Team (Late st Contact Info) Description 08/20/2011 Telephone [facility] Internal Medicine [facility] [phone] [address] Ilan Whitley DO [address] [facility] [address] [place] [address] Hypertension Social History Tobacco Use Types Packs/Day [...] encounter Miscellaneous Notes * Telephone Encounter - Pta Higgins - 08/20/2011 12:42 PM CDT Pt notified; rx escribed and records faxed over.ker * Telephone Encounter - Ilan Whitley DO - 08/20/2011 12:31 PM CDT Try cozaar 50 mg qd Num 30 2 rf * Telephone Encounter - GiselaTemitope marinoly - 08/20/2011 9:47 AM CDT 1) re: Htn medication - drying equipment 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 and can't speak with him- On lisinopril - had bp 190 - 200/ last pm - went to er; when he takes captopril there are too many side effects - is there another avel inhibitor that he can try- until he can see another specialist next week 2) Pt requesting that last labs and ov notes be faxed to specialist/fany Crocker/ documented in this encounter Plan of Treatment Upcoming Encounters Date Type Department Care Team (Late st Contact Info) Description 12/13/2024 9:45 AM SALVAGE INSPECTOR WOOD PARTS Office Visit [facility] Oncology and Hematology - [place] [address] [facility] [address] [place] [address] Glenn Al MD [address] [facility] [address] [place] [address] documented as of this encounter Visit Diagnoses Not on filedocumented in this encounter Care Teams Mold Carpenter Relationship Specialty Start Date End Date Ilan Whitley DO [address] [place] [address] PCP - General 09/07/09 07/31/20 documented as of this encounter
--- OUTSIDE RECORDS SUMMARY | 2024-10-30 02:34 | XMS_ITS | Encounter Summary ---
Author Organization [facility] Address [address] [place] [address] Care Team Providers Care Program Management Professional Name Role Phone LindseyaaronIlan bennett DO Primary Care Provider Reason for Visit * Reason Onset Date Comments Medication Question 08/12/2011 Encounter Details Date Type Department Care Team (Late st Contact Info) Description 08/12/2011 Telephone [facility] Heart and Vascular At [place] [address] [facility] [address] [place] [address] Eleazar Mishra MD [place] [facility] S [facility] [address] [place] [address] Medication Question Social History Tobacco [...] encounter Miscellaneous Notes * Telephone Encounter - 08/12/2011 1:48 PM CDTAddended by: JAYLIN WOO on: 08/12/2011 Modules accepted: Orders, Medications * Telephone Encounter - 08/12/2011 1:48 PM CDT Pt has tried lisinopril before and it had no effect on lowering his BP. Please advise Telephone Encounter Info Author Note Status Last Update User Last Update Date/Time Kailee Le RN Signed Kailee Le RN 08/01/11 02:56 PM Telephone Encounter Pt calls on his way back from ER in [place]. He is confused about the Lisinopril dosage [...] BP at that time. He can matt [id number] mg Lisinopril to equal 20 mg for the day if BP elevated . He should take 20 mg once daily only if necessary. Dr Mishra wants Dr Whitley to be made aware of recent episodes * Telephone Encounter - Eleazar Mishra MD - 08/12/2011 10:05 AM CDT Let's stop the Captopril and begin Lisinopril 2.5 mg daily. Patient to monitor bp's and let us knowin a week or sooner what his pressures are. Please have him take 2 hours after Maxzide. * Telephone Encounter - 08/12/2011 9:28 AM CDT Ilan called in to let us know that he did change the time of day he was taking maxide. He states that he is gets physically ill after each dose of captopril. He says he can't continue taking it. Please advise. documented in this encounter Plan of Treatment Upcoming Encounters Date Type Department Care Team (Late st Contact Info) Description 12/13/2024 9:45 AM MITER SAWYER Office Visit [facility] Oncology and Hematology - [place] [address] [facility] [address] [place] [address] Glenn Al MD [address] [facility] [address] [place] [address] documented as of this encounter Visit Diagnoses Not on filedocumented in this encounter Care Teams Program Management Professional Relationship Specialty Start Date End Date Ilan Whitley DO [address] [place] [address] PCP - General 09/07/09 07/31/20 documented as of this encounter
--- OUTSIDE RECORDS SUMMARY | 2024-10-30 02:34 | XMS_ITS | Encounter Summary ---
Author Organization [facility] Address [address] [place] [address] Care Team Providers Care Distributing Clerk Name Role Phone Ilan Whitley DO Primary Care Provider Encounter Details Date Type Department Care Team (Late st Contact Info) Description 06/17/2012 Abstract [facility] Internal Medicine [facility] [address] [address] [facility] [address] [place] [address] Ilan Whitley DO [address] [facility] [address] [place] [address] Social History Tobacco Use Types [...] st Contact Info) Description 12/13/2024 9:45 AM ONYX CHIP TERRAZZO WORKER Office Visit [facility] Oncology and Hematology - [place] [address] [place] [address] Glenn Al MD [address] [facility] [address] [place] [address] documented as of this encounter Visit Diagnoses Not on filedocumented in this encounter Care Teams Distributing Clerk Relationship Specialty Start Date End Date Ilan Whitley DO [address] [facility] [address] [place] [address] PCP - General 09/07/09 07/31/20 documented as of this encounter
--- OUTSIDE RECORDS SUMMARY | 2024-10-30 02:34 | XMS_ITS | Encounter Summary ---
Author Organization [facility] Address [address] [place] [address] Care Team Providers Care Driver/Refuse Collector Name Role Phone Ilan Whitley DO Primary Care Provider Reason for Visit * Reason Onset Date Comments Labs Only 10/18/2012 Encounter Details Date Type Department Care Team (Late st Contact Info) Description 10/18/2012 Telephone [facility] Internal [facility] [phone] [place] [address] 320 [place] [address] Ilan Whitley, [address] [facility] [address] [place] [address] Labs Only Social History Tobacco [...] * Telephone Encounter - Pat Higgins - 10/18/2012 4:52 PM CST Orders sent to: S TUTOR * Telephone Encounter - Ilan Whitley DO - 10/18/2012 4:47 PM MATHS TUTOR Cbc,,iron Anemia tsh reflex fatigue S TUTOR * Telephone Encounter - GiselaVijaya marinoberly - 10/18/2012 3:08 PM CST 1)pt has been on a vegatarian diet for several weeks - has been extremely fatigued; less energy, but no weakness Wants to know if you can check his blood for iron level and whatever else - Needs orders sent to [facility]/ [place]; ph# [phone] ncbn 2) Needs any labs/tests results relating to prostrate cancer to Catalino Seguraock fx# [phone] ncbn S TUTOR documented in this encounter Plan of Treatment Upcoming Encounters Date Type Department Care Team (Late st Contact Info) Description 12/13/2024 9:45 AM MATHS TUTOR Office Visit [facility] Oncology and Hematology - [place] [address] [facility] 200 [place] [address] Glenn Al MD [address] [facility] [address] [place] [address] documented as of this encounter Visit Diagnoses Diagnosis Malaise and fatigue- Primary Other malaise and fatigue Anemia Anemia, unspecified documented in this encounter Care Teams Driver/Refuse Collector Relationship Specialty Start Date End Date Ilan Whitley DO [address] [place] [address] PCP - General 09/07/09 07/31/20 documented as of this encounter
--- OUTSIDE RECORDS SUMMARY | 2024-10-30 02:34 | XMS_ITS | Encounter Summary ---
Author Organization [facility] Address [address] [place] [address] Care Team Providers Care Application Trainer Name Role Phone Ilan Lawler DO Primary Care Provider Reason for Visit * Reason Onset Date Comments Results 07/18/2011 24 hr holter Encounter Details Date Type Department Care Team (Late st Contact Info) Description 07/18/2011 Telephone [facility] Internal Medicine [facility] [address] [address] Ilan Lawler, DO [facility] [address] [place] [address] Results (24 hr holter) Social History Tobacco Use Types Packs/Day Years [...] encounter Miscellaneous Notes * Telephone Encounter - Fernanda Pruett - 07/18/2011 1:04 PM CDT L/m on hm ans/mach that 24hr holter monitor is normal limits/cc * Telephone Encounter - Fernanda Pruett - 07/18/2011 1:03 PM CDT Message copied by FERNANDA PRUETT on ThuJul 18, 2011 1:03 PM ------ Message from: ILAN LAWLER Created: [place] Jul 17, 2011 6:31 PM Monitor was nl documented in this encounter Plan of Treatment Upcoming Encounters Date Type Department Care Team (Late st Contact Info) Description 12/13/2024 9:45 AM DINING CAR STEWARD Office Visit [facility] Oncology and Hematology - [place] [address] [facility] [address] [place] [address] Glenn Al MD [address] [facility] [address] [place] [address] documented as of this encounter Visit Diagnoses Not on filedocumented in this encounter Care Teams Application Trainer Relationship Specialty Start Date End Date Ilan Lawler DO [address] [place] [address] PCP - General 09/07/09 07/31/20 documented as of this encounter
--- OUTSIDE RECORDS SUMMARY | 2024-10-30 02:34 | XMS_ITS | Encounter Summary ---
Author Organization [facility] Address [address] Bain: Epic Prelude ADT [facility] [address] Care Team Providers Care Product Engineering Manager Name Role Phone Ilan Whitley DO Primary Care Provider Encounter Details Date Type Department Care Team (Late st Contact Info) Description 10/28/2012 Outpatient Historical Initial Department [address] [place]: [place] [address] Provider, Historical Social History Tobacco Use Types Packs/Day Years [...] Contact Info) Description 12/13/2024 9:45 AM GAS PUMPER Office Visit [facility] Oncology and Hematology - [place] [address] [place] [address] [address] [place] [address] Glenn Al MD [address] [facility] [address] [place] [address] documented as of this encounter Procedures Procedure Name Priority Date/Time Associated Diagnosis Comments TSH REFLEXIVE Routine 10/28/2012 7:35 AM GAS PUMPER CBC WITH DIFFERENTIAL Routine 10/28/2012 7:35 AM GAS PUMPER IRON LEVEL Routine 10/28/2012 7:35 AM GAS PUMPER documented in this encounter Results * TSH REFLEXIVE (10/28/2012 7:35 AM GAS PUMPER) Pathologist [facility] TSH, ULTRASENSITIVE 1.95 0.40 - 4.50 mIU/L Andre Phillipe [facility] Comment: Test Performed at: [facility] [address] [place], [place] ??[address] OLIVIA DU DO,MPH 10/28/2012 7:35 AM GAS PUMPER Ilan Whitley DO CHEMISTRY JACKY [place] Performing Organization Address City/[facility] de Phone Number INTERFACE SYSTEM Refer to clinic/hospital department [facility] [address] [place] [address] * (ABNORMAL) IRON LEVEL (10/28/2012 7:35 AM GAS PUMPER) [facility] IRON 227(H) 45 - 170 mcg/dL [facility] Comment: Test Performed at: Andre Phillipe [facility] [address] [place], [place] ??[address] OLIVIA DU DO,MPH 10/28/2012 7:35 AM GAS PUMPER lIan NGUYEN Performing Organization Address [facility] de Phone Number INTERFACE SYSTEM Refer to clinic/hospital department [facility] [address] [place] [address] * (ABNORMAL) CBC WITH DIFFERENTIAL (10/28/2012 7:35 AM GAS PUMPER) [facility] WBC 7.0 3.8 - 10.8 Thousand/ uL [facility] RBC 4.28 4.20 - 5.80 Million/u L [facility] HEMOGLOBIN 14.5 13.2 - 17.1 g/dL [facility] HEMATOCRIT 42.5 38.5 - 50.0 % [facility] DIAGNOSTICS [facility] MCV 99.2 80.0 - 100.[address] [facility] MCH 33.9(H) 27.0 - 33.[address] [facility] MCHC 34.2 32.0 - 36.0 g/dL [facility] RDW 13.2 11.0 - 15.0 % [facility] PLATELETS 246 140 - 400 Thousand/ uL [facility] NEUTROPHIL ABSOLUTE 3,234 1,500 - 7,800 cells/uL [facility] LYMPHOCYTE ABSOLUTE 2,856 850 - 3,900 cells/uL [facility] MONOCYTE ABSOLUTE 616 200 - 950 cells/uL [facility] EOSINOPHIL ABSOLUTE 273 15 - 500 cells/uL [facility] BASOPHILS ABSOLUTE 21 0 - 200 cells/uL [facility] NEUTROPHIL 46.2 % [facility] LYMPHOCYTES 40.8 % [facility] MONOCYTE 8.8 % [facility] EOSINOPHILS 3.9 % [facility] BASOPHILS 0.3 % [facility] Comment: Test Performed at: Andre Phillipe [address] ??[address] OLIVIA DU DO,MPH 10/28/2012 7:35 AM GAS PUMPER Ilan Whitley DO HEMATOLOGY ORD ERABLES INTERFACE SYSTEM Refer to clinic/hospital department [facility] [address] [place] [address] documented in this encounter Visit Diagnoses Not on filedocumented in this encounter Care Teams Product Engineering Manager Relationship Specialty Start Date End Date Ilan Whitley DO [address] [place] [address] PCP - General 09/07/09 07/31/20 documented as of this encounter
--- OUTSIDE RECORDS SUMMARY | 2024-10-30 02:34 | XMS_ITS | Encounter Summary ---
Author Organization [facility] Address [address] [place] [address] Care Team Providers Care Fire Crew Specialist Name Role Phone Ilan Whitley DO Primary Care Provider Reason for Visit * Reason Onset Date Comments Medication Refill 11/17/2011 Encounter Details Date Type Department Care Team (Late Contact Info) Description 11/17/2011 Refill [facility] Internal Medicine [place] [address] [facility] [address] [place] [address] Ilan Whitley, DO [address] [facility] [address] [place] [address] Social History Tobacco Use Types [...] * Telephone Encounter - Pat Higgins - 11/17/2011 2:44 PM CST Pt refill request LER AND REAMER documented in this encounter Plan of Treatment Upcoming Encounters Date Type Department Care Team (Late st Contact Info) Description 12/13/2024 9:45 AM DRILLER AND REAMER Office Visit [facility] Oncology and Hematology - [place] [address] [facility] [address] [place] [address] Glenn Al MD [address] [facility] [address] [place] [address] documented as of this encounter Visit Diagnoses Not on filedocumented in this encounter Care Teams Fire Crew Specialist Relationship Specialty Start Date End Date Ilan Whitley DO [address] [place] [address] PCP - General 09/07/09 07/31/20 documented as of this encounter
--- OUTSIDE RECORDS SUMMARY | 2024-10-30 02:34 | XMS_ITS | Encounter Summary ---
Author Organization [facility] Address [address] [place] [address] Care Team Providers Care Heel Former Name Role Phone Ilan Lawler DO Primary Care Provider Reason for Visit * Reason Onset Date Comments Results 06/13/2013 Encounter Details Date Type Department Care Team (Late st Contact Info) Description 06/13/2013 Telephone [facility] Internal Medicine [place] [address] [address] Ilan Lawler, DO [address] [facility] [address] [place] [address] Results Social History Tobacco Use [...] * Telephone Encounter - Trisha Fraser - 06/13/2013 10:45 AM CDT Pt aware/mb * Telephone Encounter - Trisha Fraser - 06/13/2013 10:45 AM CDT Message copied by TRISHA FRASER on ThuJun 13, 2013 10:45 AM ------ Message from: ILAN LAWLER Created: ThuJun 08, 2013 12:52 PM psa nl , but sl inc at 0.3 ------ documented in this encounter Plan of Treatment Upcoming Encounters Date Type Department Care Team (Late st Contact Info) Description 12/13/2024 9:45 AM GLASS EMBOSSER Office Visit [facility] Oncology and Hematology - [place] [address] [facility] [address] [place] [address] Glenn Al MD [address] [facility] [address] [place] [address] documented as of this encounter Visit Diagnoses Not on filedocumented in this encounter Care Teams Heel Former Relationship Specialty Start Date End Date Ilan Lawler DO [address] [place] [address] PCP - General 09/07/09 07/31/20 documented as of this encounter
--- OUTSIDE RECORDS SUMMARY | 2024-10-30 02:34 | XMS_ITS | Encounter Summary ---
Author Organization [facility] Address [address] [place] [address] Care Team Providers Care Educational Consultant Name Role Phone TeofiloIlan strong DO Primary Care Provider Encounter Details Date Type Department Care Team (Latest Contact Info) Description 06/24/2012 11:44 AM CDT - 06/24/2012 11:59 PM T Hospital Encounter [facility] Laboratory Support Services [address] [place] [address] Giancarlo Azar MD [address] [facility] [address] [place] [address] Discharge Disposition: Home or Self Care Social [...] st Contact Info) Description 12/13/2024 9:45 AM SPECIAL EVENTS MANAGER Office Visit [facility] Oncology and Hematology - [place] [address] [place] [address] [address] [place] [address] Glenn Al MD [address] [facility] [address] [place] [address] documented as of this encounter Procedures Procedure Name Priority Date/Time Associated Diagnosis Comments URINE CULTURE Routine 06/24/2012 11:57 AM CDT Urinary tract infection, site not specified documented in this encounter Results * URINE CULTURE (06/24/2012 11:57 AM CDT) FINAL MICRO REPORT No growth [address] [facility] Urine specimen (specimen) URINE SPECIMEN OBTAINED BY CLEAN CATCH PROCEDURE / Unknown 06/24/2012 11:57 AM CDT 06/24/2012 12:27 PM CDT Comment:URINE VOIDED Giancarlo Azar MD MICROBIOLOGY - GENER AL ORDERABLES [facility] CLIA# [id number] [address] [place] [address] documented in this encounter Visit Diagnoses Diagnosis Urinary tract infection, site not specified documented in this encounter Care Teams Educational Consultant Relationship Specialty Start Date End Date Ilan Whitley DO [address] [facility] [address] [place] [address] PCP - General 09/07/09 07/31/20 documented as of this encounter
--- OUTSIDE RECORDS SUMMARY | 2024-10-30 02:34 | XMS_ITS | Encounter Summary ---
Author Organization [facility] Address [address] [place] [address] Care Team Providers Care Embedded Systems Designer Name Role Phone Ilan Whitley DO Primary Care Provider Reason for Visit * Reason Onset Date Comments Advice Only 07/30/2011 Encounter Details Date Type Department Care Team (Late st Contact Info) Description 07/30/2011 Telephone [facility] Heart and Vascular At [place] [address] [address] [facility] [address] [place] [address] Eleazar Mishra MD [facility] [address] [facility] [address] [place] [address] Advice Only Social History Tobacco Use Types Packs/Day [...] Telephone Encounter - Eleazar Mishra MD - 07/31/2011 2:14 PM CDT I agree with decreasing dose and increasing only if bp's higher. Thanks. * Telephone Encounter - 07/30/2011 3:21 PM CDT Pt is intolerant of increase in captopril. He feels rotten, no energy, head feels tight. Brief episodes of heart pounding. I told him to go back to 25 mg tid until he hears back from us. Please advise documented in this encounter Plan of Treatment Upcoming Encounters Date Type Department Care Team (Late st Contact Info) Description 12/13/2024 9:45 AM HABILITATION SPECIALIST Office Visit [facility] Oncology and Hematology - [place] [address] [facility] [address] [place] [address] Glenn Al MD [address] [facility] [address] [place] [address] documented as of this encounter Visit Diagnoses Not on filedocumented in this encounter Care Teams Embedded Systems Designer Relationship Specialty Start Date End Date Ilan Whitley DO [address] [place] [address] PCP - General 09/07/09 07/31/20 documented as of this encounter
--- OUTSIDE RECORDS SUMMARY | 2024-10-30 02:34 | XMS_ITS | Encounter Summary ---
Author Organization [facility] Address [address] [place] [address] Care Team Providers Care Aligner Barrel And Receiver Name Role Phone Ilan Whitley DO Primary Care Provider Encounter Details Date Type Department Care Team (Late st Contact Info) Description 03/25/2012 Abstract [facility] Internal Medicine [facility] [address] [address] [facility] [address] [place] [address] Ilan Whitley DO [address] [facility] [address] [place] [address] Social History Tobacco Use Types [...] Contact Info) Description 12/13/2024 9:45 AM HAND TRUCKER Office Visit [facility] Oncology and Hematology - [place] [address] [place] [address] Glenn Al MD [address] [facility] [address] [place] [address] documented as of this encounter Procedures Procedure Name Priority Date/Time Associated Diagnosis Comments MISCELLANEOUS LAB TEST Routine 03/16/2012 documented in this encounter Results * MISCELLANEOUS LAB TEST (03/16/2012) MISCELLANEOUS LAB TEST EXTERNAL LAB SPECIMEN TYPE EXTERNAL LAB MISCELLANEOUS LAB TEST EXTERNAL LAB Specimen of unknown material (specimen) Ilan Whitley DO CHEMISTRY JACKY [place] EXTERNAL LAB documented in this encounter Visit Diagnoses Not on filedocumented in this encounter Care Teams Aligner Barrel And Receiver Relationship Specialty Start Date End Date Ilan Whitley DO [address] [place] [address] PCP - General 09/07/09 07/31/20 documented as of this encounter
--- OUTSIDE RECORDS SUMMARY | 2024-10-30 02:34 | XMS_ITS | Encounter Summary ---
Author Organization [facility] Address [address] [place] [address] Care Team Providers Care Forest Aide Name Role Phone Ilan Whitley DO Primary Care Provider Encounter Details Date Type Department Care Team (Late st Contact Info) Description 06/29/2013 Abstract [facility] Internal Medicine [facility] [address] [address] [facility] [address] [place] [phone] Ilan Whitley DO [address] [facility] [address] [place] [address] Social History Tobacco Use Types [...] st Contact Info) Description 12/13/2024 9:45 AM AIR POLLUTION ANALYST Office Visit [facility] Oncology and Hematology - [place] [address] [place] [address] Glenn Al MD [address] [facility] [address] [place] [address] documented as of this encounter Visit Diagnoses Not on filedocumented in this encounter Care Teams Forest Aide Relationship Specialty Start Date End Date Ilan Whitley DO [address] [facility] [address] [place] [address] PCP - General 09/07/09 07/31/20 documented as of this encounter
--- OUTSIDE RECORDS SUMMARY | 2024-10-30 02:35 | XMS_ITS | Encounter Summary ---
Author Organization [facility] Address [address] [place] [address] Care Team Providers Care Airplane Flight Attendant Name Role Phone Ilan Whitley DO Primary Care Provider Reason for Visit * Reason Onset Date Comments Medication Refill 03/26/2011 Encounter Details Date Type Department Care Team (Late Contact Info) Description 03/26/2011 Refill [facility] Internal Medicine [place] [address] [facility] [address] [place] [address] Ilan Whitley DO [address] [facility] [address] [place] [address] Social History Tobacco Use Types Packs/Day Years Used Date Smoking Tobacco: Never Alcohol Use Standard Drinks/Week Comments No 0 (1 standard drink = 0.6 oz pur e alcohol) Sex and Gender Information Value Date Recorded Sex Assigned at Not on file Gender Identity Not on file Sexual Orientation Not on file documented as of this encounter Miscellaneous Notes * Telephone Encounter - Debbie Crocker - 03/26/2011 11:31 AM CDT ESTHER- 5-20-11 documented in this encounter Plan of Treatment Upcoming Encounters Date Type Department Care Team (Late st Contact Info) Description 12/13/2024 9:45 AM BANKING ANALYST Office Visit [facility] Oncology and Hematology - [place] [address] [place] [address] Glenn Al MD [address] [facility] [address] [place] [address] documented as of this encounter Visit Diagnoses Not on filedocumented in this encounter Care Teams Airplane Flight Attendant Relationship Specialty Start Date End Date Ilan Whitley DO [address] [place] [address] PCP - General 09/07/09 07/31/20 documented as of this encounter
--- OUTSIDE RECORDS SUMMARY | 2024-10-30 02:35 | XMS_ITS | Encounter Summary ---
Author Organization [facility] Address [address] [place] [address] Care Team Providers Care Training Developer Name Role Phone Ilan Whitley [place] Primary Care Provider Reason for Referral * Outpatient Services (Routine) - Closed Specialty Diagnoses / Procedures Referred By Cecile yan Referred To Contact Cardiology Diagnoses Unspecified essential hypertension PAF (paroxysmal atrial fibrillation) Procedures ECHO STRESS TEST EXERCISE Eleazar Mishra MD [address] [facility] [address] [place] [address] Referral ID Status Reason Start Date Expiration Date Visits Re quested Visits Authorized [id number] Closed 06/23/2011 06/22/2012 1 1 Reason for Visit * Outpatient Services (Routine) - Closed Specialty Diagnoses / Procedures Referred By Cecile yan Referred To Contact Cardiology Diagnoses Unspecified essential hypertension PAF (paroxysmal atrial fibrillation) Procedures ECHO STRESS TEST EXERCISE Eleazar Mishra MD [address] [facility] [address] [place] [address] Referral ID Status Reason Start Date Expiration Date Visits Re quested Visits Authorized [id number] Closed 06/23/2011 06/22/2012 1 1 Encounter Details Date Type Department Care Team (Latest Contact Info) Description 06/23/2011 9:08 AM CDT - 06/23/2011 11:59 PM CDT Hospital Encounter [facility] Nuclear Medicine [address] [place] [address] Eleazar Mishra MD [address] [facility] [address] [place] [address] Discharge Disposition: Home or Self Care Social [...] on file documented as of this encounter Discharge Instructions * Discharge Instructions* Tia Mogran RN - 06/23/2011 9:15 AM CDT Stress Test Post Procedure Instructions: 1. You are expected to feel tired after this test. It is normal. If you continue to feel tired for several days, notify . 2. You will not need to follow your daily exercise program today. You may resume your home exerciseprogram tomorrow. 3. Avoid hot showers or baths after your stress test. 4. After returning home, if you develop chest pain that is unrelieved by resting or using Nitroglycerin (if you take this medication), please notify DrKenny or go to the emergency room. These instructions include your current and historical medications prescribed by your physician(s).Continue your current medications. If you have questions, please call the physician who prescribed your medication. . It has been a pleasure to care for you today. [facility] Heart and Vascular [facility] Noninvasive Cardiology [phone] documented in this encounter Medications at Time of Discharge Medication Sig Dispensed Refills Start Date End Date captopril (CAPOTEN) 25 mg Oral tablet Take 1 Tab by mouth 3 times daily. 90 Tab 3 06/23/2011 07/28/2011 triamterene-hydrochloroth iazide (MAXZIDE-25MG) 37.5-25 mg Oral tabletIndications:HTN (hypertension) Take 1 Tab by mouth daily. 30 Tab 6 06/12/2011 11/25/2011 ALPRAZolam (XANAX) 0.25 mg Oral tablet Take 1 Tab by mouth 2 times daily as needed for Anxiety. 45 Tab 1 04/23/2011 07/21/2011 finasteride (PROSCAR) 5 mg Oral tablet Take 1 Tab by mouth daily. 90 Tab 3 03/26/2011 11/17/2011 vardenafil (LEVITRA) 20 mg Oral tablet Take 1 Tab by mouth 1 time daily as needed. 15 Tab 3 11/08/2010 11/26/2015 LACTOBACILLUS/FOS/PECTIN (PROBIOTIC COMPLEX PO) Take by mouth. cyanocobalamin (VITAMIN B-12) 1,000 mcg Oral Tab Take 1,000 mcg by mouth daily. 11/26/2015 omega-3 acid ethyl esters (LOVAZA) 1 gram Oral Cap Take 4 Gram by mouth daily. 11/17/2011 documented as of this encounter Procedure Notes * Olman Corcoran MD - 07/17/2011 2:02 PM CDTAssociated Order(s): HOLTER MONITOR [place], [place] [address] Senior Teradata Developer Report CSN: [id number] DATE OF SERVICE: 06/23/2011 CARDIAC EVENT MONITOR REPORT INDICATIONS Atrial fibrillation. The patient was monitored for 10 days. There was only a single baseline transmission, which revealed sinus rhythm. Heart rate 96. No ectopy. LUIGI:MEDQ DID: [id number] Dictated by: Olman Corcoran MD cc: Eleazar Mishra MD documented in this encounter Miscellaneous Notes * Scanned Form - Stl Scanning, [facility] - 06/30/2011 2:30 PM CDT * Scanned Form - [facility] Scanning, [facility] - 06/26/2011 6:48 PM CDT * Patient Instructions - Stl Scanning, [facility] - 06/25/2011 8:01 PM CDT documented in this encounter Plan of Treatment Upcoming Encounters Date Type Department Care Team (Late st Contact Info) Description 12/13/2024 9:45 AM TROLLEY CAR MECHANIC Office Visit [facility] Oncology and Hematology - [place] [address] [place] [address] Glenn Al MD [address] [facility] [address] [place] [address] documented as of this encounter Procedures Procedure Name Priority Date/Time Associated Diagnosis Comments HOLTER MONITOR 07/17/2011 2:02 PM CDT ECHO STRESS TEST EXERCISE Routine 06/23/2011 10:03 AM CDT Unspecified essential hypertension PAF (paroxysmal atrial fibrillation) documented in this encounter Results * HOLTER MONITOR (07/17/2011 2:02 PM CDT) Narrative Transcriptions Olman Corcoran MD - 07/17/2011 2:02 PM CDT [place], [place] [address] Senior Teradata Developer Report CSN: [id number] DATE OF SERVICE: 06/23/2011 CARDIAC EVENT MONITOR REPORT INDICATIONS Atrial fibrillation. The patient was monitored for 10 days. There was only a single baseline transmission, which revealed sinusrhythm. Heart rate 96. No ectopy. LUIGI:MEDQ DID:[id number] Dictated by: Olman Corcoran MD cc: Eleazar Mishra MD Olman Corcoran MD CARDIAC SERVICES ORD ERABLES * ECHO STRESS TEST EXERCISE (06/23/2011 10:03 AM CDT) 06/23/2011 9:06 AM CDT Narrative INTERFACE SYSTEM - 06/23/2011 10:07 AM CDT [facility] [place] [address] [place] [address] [email or web address] Stress Echocardiography Shaan protocol Patient: ?Ilan Mccauley DANIELA: ?[id number] Study ID: ? ECHO STRESS TEST Gender: ? M : ?1940 Age: ?70 Race: ? [facility] Height Study Date: ? 06/23/2011 Weight: Access. #: ?[id number] Account #: ?[id number] BP: *Referring Physician:* Eleazar Mishra Anthony, M.D. *Ordering Physician:* ??Eleazar Mishra Animal Nutritionist: Procedure data: Consent: The risks, benefits, and [...] administered. Study completion: There were no complications. ?Shaan protocol. Stress echocardiography. Study Conclusions: Summary: - Procedure narrative: Transthoracic stress ??echocardiography. Image quality was good. Images were ??captured at baseline and peak exercise. Intravenous ??contrast (Definity) was administered. - Stress: Functional capacity was normal. - Stress ECG conclusions: The stress ECG was negative for ??ischemia. - Stress echo: There was no echocardiographic evidence for ??stress-induced ischemia. - Baseline: LV global systolic function was normal. Impressions: Normal study. Normal study after maximal exercise. Cardiac Anatomy: Stress protocol: - Baseline HR: 89bpm BP: 150/85 ST/T: normal NSR, no ectopy ??Symptoms: none - Peak stress HR: 152bpm BP: 210/80 ST/T: normal NSR, no ??ectopy Symptoms: none - Recovery HR: 115bpm BP: 135/75 ST/T: normal NSR, no ectopy ??Symptoms: none Stress results: Maximal heart rate during [...] was no echocardiographic evidence for stress-induced ischemia. ?Prepared and Electronically Authenticated Selvin Washington [id number] Procedure Note Selvin Washington MD - 06/23/2011 [facility] Heart and Vascular [address] [place] [address] [email or web address] Stress Echocardiography Shaan protocol Patient: Ilan Mccauley Study ID: ECHO STRESS TEST Gender: M : 1940 Age: 70 Race: CAU Height Study Date: 06/23/2011 Weight: Access. #: [id number] BP: *Referring Physician:* Eleazar Mishra Anthony, M.D. *Ordering Physician:* Eleazar Mishra Animal Nutritionist: Procedure data: Consent: The risks, benefits, and [...] ischemia. Prepared and Electronically Authenticated Selvin Washington [id number] Eleazar Mishra MD US ORDERABLES INTERFACE SYSTEM Refer to clinic/hospital department documented in this encounter Visit Diagnoses Diagnosis Unspecified essential hypertension PAF (paroxysmal atrial fibrillation) Atrial fibrillation documented in this encounter Care Teams Training Developer Relationship Specialty Start Date End Date Ilan Whitley DO [address] [place] [address] PCP - General 09/07/09 07/31/20 documented as of this encounter
--- OUTSIDE RECORDS SUMMARY | 2024-10-30 02:35 | XMS_ITS | Encounter Summary ---
Author Organization [facility] Address [address] [place] [address] Care Team Providers Care Base Loader Name Role Phone Ilan Whitley DO Primary Care Provider Encounter Details Date Type Department Care Team (Late st Contact Info) Description 03/06/2010 Abstract [facility] [address] [place] [address] Ilan Whitley DO [address] [place] [address] Social History Tobacco Use Types [...] st Contact Info) Description 12/13/2024 9:45 AM TECHNOLOGY INTERNSHIP Office Visit [facility] Oncology and Hematology - [place] [address] [facility] [address] [place] [address] Glenn Al MD [address] [facility] [address] [place] [address] documented as of this encounter Procedures Procedure Name Priority Date/Time Associated Diagnosis Comments MISCELLANEOUS LAB TEST Routine 02/19/2010 documented in this encounter Results * MISCELLANEOUS LAB TEST (02/19/2010) MISCELLANEOUS LAB TEST EXTERNAL LAB Specimen of unknown material (specimen) Ilan Whitley DO CHEMISTRY JACKY MALCOLM [facility] Organization Address City/State/[place] Co de Phone Number EXTERNAL LAB documented in this encounter Visit Diagnoses Not on filedocumented in this encounter Care Teams Base Loader Relationship Specialty Start Date End Date Ilan Whitley DO [address] [place] [address] PCP - General 09/07/09 07/31/20 documented as of this encounter
--- OUTSIDE RECORDS SUMMARY | 2024-10-30 02:35 | XMS_ITS | Encounter Summary ---
Author Organization [facility] Address [address] [place] [address] Care Team Providers Care Electric Blasting Cap Assembler Name Role Phone Ilan Whitley Merry Primary Care Provider Reason for Referral * Outpatient Services (Routine) - Closed Specialty Diagnoses / Procedures Referred By Contac t Referred To Contact Cardiology Diagnoses Unspecified essential hypertension PAF (paroxysmal atrial fibrillation) Procedures ECHO STRESS TEST EXERCISE Izabel Mishra MD [address] [place] [address] [address] [place] [address] Referral ID Status Reason Start Date Expiration Date Visits Re quested Visits Authorized [id number] Closed 06/23/2011 06/22/2012 1 1 Reason for Visit * Reason Comments Establish Care New Afib Encounter Details Date Type Department Care Team (Late st Contact Info) Description 06/23/2011 8:00 AM CDT Office Visit [facility] Heart and Vascular At [address] [place] [address] Izabel Mishra MD [address] [place] [address] [address] [place] [address] Unspecified essential hypertension (Primary Dx); Hyperlipidemia; Heart murmur previously undiagnosed; PAF (paroxysmal atrial fibrillation) Social History Tobacco Use Types Packs/Day Years [...] Sign Reading Time Taken Comments Blood Pressure 138/84 06/23/2011 7:56 AM CDT r s efren 164/90 Pulse 80 06/23/2011 7:56 AM CDT Temperature - - Respiratory Rate - - Oxygen Saturation 98% 06/23/2011 7:56 AM CDT Inhaled Oxygen Concentration - - Weight 79.8 kg (176 lb) 06/23/2011 7:56 AM CDT Height 170.2 cm (5' 7 ) 06/23/2011 7:56 AM CDT Body Mass Index 27.57 06/23/2011 7:56 AM CDT documented in this encounter Progress Notes * Izabel Mishra MD - 06/23/2011 11:15 AM CDTAddended by: IZABEL MISHRA T on: 06/23/2011 Modules accepted: Level of Service * Izabel Mishra MD - 06/23/2011 8:23 AM CDT HISTORY OF PRESENT ILLNESS Ilan Mccauley, a 70 y.o. male. HPI Patient here for f/u after wearing Holter monitor which showed PAF. Put on monitor for unknown reason by PA at [facility]. However, after further questioning, patient has noticed high blood pressures with symptoms of tightness in the head. He was treated with blood pressuremedications which gave him some symptoms of slow hard heart beats. Patient states that he can hike 10 miles without any problems (2 months ago). On the 02 of June,patient able to do a 12 minute mile without any problems. No chest pain or tightness. No shortness of breath. Current outpatient prescriptions Medication Sig Dispense Refill ??? captopril (CAPOTEN) 25 mg Oral tablet Take 25 mg by mouth 3 times daily. ??? triamterene-hydrochlorothiazide (MAXZIDE-25MG) 37.5-25 mg Oral tablet Take 1 Tab by mouth daily. 30 Tab 6 ??? ALPRAZolam (XANAX) 0.25 mg Oral tablet Take 1 Tab by mouth 2 times daily as needed for Anxiety.45 Tab 1 ??? finasteride (PROSCAR) 5 mg Oral tablet Take 1 Tab by mouth daily. 90 Tab 3 ??? vardenafil (LEVITRA) 20 mg Oral tablet Take 1 Tab by mouth 1 time daily as needed. 15 Tab 3 ??? LACTOBACILLUS/FOS/PECTIN (PROBIOTIC COMPLEX PO) Take by mouth. ??? UBIDECARENONE/VITAMIN E MIXED (COQ10 SG 100 PO) Take by mouth. ??? cyanocobalamin (VITAMIN B-12) 1,000 mcg Oral Tab Take 1,000 mcg by mouth daily. ??? omega-3 acid ethyl esters (LOVAZA) 1 gram Oral Cap Take 4 Gram by mouth daily. ??? DISCONTD: diltiazem (CARDIZEM) 90 mg Oral tablet Take 1 Tab by mouth 3 times daily. 90 Tab 3 REVIEW OF SYSTEMS Review of Systems Constitutional: Positive for fatigue (?Medication related. ). HENT: Negative for nosebleeds. Eyes: Negative for visual disturbance. Respiratory: Negative for chest tightness and shortness of breath. Cardiovascular: Positive for palpitations (Slow hard beats. ). Negative for chest pain. Gastrointestinal: Negative for blood in stool. Genitourinary: Negative for hematuria. Musculoskeletal: Negative for myalgias. Skin: Negative for wound. Neurological: Negative for syncope. Hematological: Does not bruise/bleed easily. Psychiatric/Behavioral: Negative for behavioral problems and agitation. The patient is nervous/anxious. PHYSICAL EXAM BP 138/84 Pulse 80 Ht 5' 7 (1.702 m) Wt 176 lb (79.833 kg) BMI 27.57 kg/m2 SpO2 98% Physical Exam Constitutional: He is oriented to person, place, and time. He appears well- developed and well-nourished. No distress. HENT: Head: Normocephalic and atraumatic. Eyes: Conjunctivae are normal. Right eye exhibits no discharge. Left eye exhibits no discharge. No scleral icterus. Neck: Neck supple. Cardiovascular: Normal rate and regular rhythm. Murmur (very soft TOSHIA. ) heard. Pulmonary/Chest: Effort normal and breath sounds normal. No respiratory distress. Musculoskeletal: He exhibits no edema. NO clubbing or cyanosis. Neurological: He is alert and oriented to person, place, and time. Skin: Skin is warm. He is not diaphoretic. Psychiatric: He has a normal mood and affect. His behavior is normal. No results found for this basename: CHOLTOT, HDL, LDLCALC, LDLDIRECT, TRIGLYCERIDE No results found for this basename: ALT TSH done in 04/12. ASSESSMENT and PLAN: 1) PAF with CHADS2 Score of 1. 2) HTN 3) Dyslipidemia 4) Heart murmur 5) Erectile dysfunction 6) h/o BPH 1) Patient has echo already scheduled at [facility] with renal ultrasound. 2) Would like for him to get stress echo. 3) 30 D autotrigger event monitor to determine AF burden. 4) For now, patient to continue aspirin 325 mg daily. He his very hesitant to start anything stronger. 5) Heart healthy lifestyle. 6) F/U in 6 months or prn. * 06/23/2011 8:04 AM CDT Pt with new dx of Afib. documented in this encounter Procedure Notes * Izabel Mishra MD - 06/23/2011 8:13 AM CDTAssociated Order(s): EKG 12-LEAD Procedure(s): VA ECG ROUTINE ECG W/LEAST 12 LDS W/I&R Pre-Procedure Diagnose(s): Unspecified essential hypertension SR. LAD. LAFB. PRWP. documented in this encounter Miscellaneous Notes * Patient Instructions - Izabel Mishra MD - 06/23/2011 8:34 AM CDT 1) Patient has echo already scheduled at [facility] with renal ultrasound. 2) Would like for him to get stress echo. 3) 30 D autotrigger event monitor to determine AF burden. 4) For now, patient to continue aspirin 325 mg daily. He his very hesitant to start anything stronger. 5) Heart healthy lifestyle. 6) F/U in 6 months or prn. documented in this encounter Plan of Treatment Upcoming Encounters Date Type Department Care Team (Late st Contact Info) Description 12/13/2024 9:45 AM HAND SPLITTER Office Visit [facility] Oncology and Hematology - [place] [address] [facility] [address] [place] [address] Glenn Al MD [address] [facility] [address] [place] [address] documented as of this encounter Results * ECHO STRESS TEST EXERCISE (06/23/2011 10:03 AM CDT) 06/23/2011 9:06 AM CDT Narrative INTERFACE SYSTEM - 06/23/2011 10:07 AM CDT [place] [place] [address] [email or web address] Stress Echocardiography Shaan protocol Patient: ?Ilan Mccauley MRN: ?[id number] Study ID: ? ECHO STRESS TEST Gender: ? M : ?1940 Age: ?70 Race: ? CAU Height Study Date: ? 06/23/2011 Weight: Access. #: ?[id number] Account #: ?[id number] BP: *Referring Physician:* Izabel Mishra Anthony, M.D. *Ordering Physician:* ??Izabel Mishra Optometrist: Procedure data: Consent: The risks, benefits, and [...] ischemia. ?Prepared and Electronically Authenticated Selvin Washington [id number] Procedure Note Selvin Washington MD - 06/23/2011 [facility] Heart and Vascular [address] [place] [address] [email or web address] Stress Echocardiography Shaan protocol Patient: Ilan Mccauley Study ID: ECHO STRESS TEST Gender: M : 1940 Age: 70 Race: CAU Height Study Date: 06/23/2011 Weight: Access. #: [id number] BP: *Referring Physician:* Izabel Mishra Anthony, M.D. *Ordering Physician:* Izabel Mishra Optometrist: Procedure data: Consent: The risks, benefits, and [...] ischemia. Prepared and Electronically Authenticated Selvin Washington [id number] Izabel Mishra MD US ORDERABLES Performing Organization Address City/State/[facility] Co de Phone Number INTERFACE SYSTEM Refer to clinic/hospital department * EKG 12-LEAD (06/23/2011 8:37 AM CDT) Izabel Mishra MD ECG ORDERABLES Performing Organization Address City/State/[facility] Co de Phone Number [facility] documented in this encounter Visit Diagnoses Diagnosis Unspecified essential hypertension- Primary Hyperlipidemia Other and unspecified hyperlipidemia Heart murmur previously undiagnosed Undiagnosed cardiac murmurs PAF (paroxysmal atrial fibrillation) Atrial fibrillation Unspecified essential hypertension PAF (paroxysmal atrial fibrillation) Atrial fibrillation documented in this encounter Care Teams Electric Blasting Cap Assembler Relationship Specialty Start Date End Date Ilan Whitley DO [address] [place] [address] PCP - General 09/07/09 07/31/20 documented as of this encounter
--- OUTSIDE RECORDS SUMMARY | 2024-10-30 02:35 | XMS_ITS | Encounter Summary ---
Author Organization [facility] Address [address] [place] [address] Care Team Providers Care Sleep Scientist Name Role Phone Ilan Whitley DO Primary Care Provider Reason for Visit * Reason Onset Date Comments Needs Orders Written 09/16/2010 Encounter Details Date Type Department Care Team (Late st Contact Info) Description 09/16/2010 Telephone [facility] Internal Medicine [facility] [address] [address] Ilan Whitley DO [address] [facility] [address] [place] [address] Needs Orders Written Social History Tobacco Use Types Packs/Day Years [...] * Telephone Encounter - Jessa Rosales - 09/16/2010 12:17 PM CST Placed order and mailed to pt/az Pt aware to fast/az R SUPERVISOR * Telephone Encounter - Ilan Whitley DO - 09/16/2010 12:03 PM PAPER SUPERVISOR Lipid/cmp 272 tsh Reflex, Cbc fatigue R SUPERVISOR * Telephone Encounter - GiselaTemitope marinoly - 09/16/2010 10:38 AM CST Pt needs lab orders for appt on 09/25 sent to his home. FYI - He has been experiencing unusual fatigue lately. R SUPERVISOR documented in this encounter Plan of Treatment Upcoming Encounters Date Type Department Care Team (Late st Contact Info) Description 12/13/2024 9:45 AM PAPER SUPERVISOR Office Visit [facility] Oncology and Hematology - [place] [address] [facility] [address] [place] [address] Glenn Al MD [address] [facility] [address] [place] [address] documented as of this encounter Visit Diagnoses Diagnosis Hyperlipidemia Other and unspecified hyperlipidemia Other malaise and fatigue documented in this encounter Care Teams Sleep Scientist Relationship Specialty Start Date End Date Ilan Whitley DO [address] [place] [address] PCP - General 09/07/09 07/31/20 documented as of this encounter
--- OUTSIDE RECORDS SUMMARY | 2024-10-30 02:35 | XMS_ITS | Encounter Summary ---
Author Organization [facility] Address [address] [place] [address] Care Team Providers Care Channel Layer Name Role Phone Ilan Whitley DO Primary Care Provider Reason for Visit * Reason Onset Date Comments Advice Only 06/18/2011 Encounter Details Date Type Department Care Team (Late st Contact Info) Description 06/18/2011 Telephone [facility] Internal Medicine [place] [id number] [place] [address] Ilan Whitley DO [address] [facility] [address] [place] [address] Advice Only Social History Tobacco Use Types Packs/Day Years Used Date Smoking Tobacco: Never Smokeless Tobacco: Never Alcohol Use Standard Drinks/Week Comments No 0 (1 standard drink = 0.6 oz pur e alcohol) Sex and Gender Information Value Date Recorded Sex Assigned at Not on file Gender Identity Not on file Sexual Orientation Not on file documented as of this encounter Miscellaneous Notes * Telephone Encounter - Pat Higgins - 06/18/2011 10:04 AM CDT Pt notified.ker * Telephone Encounter - Ilan Whitley DO - 06/18/2011 9:31 AM CDT I would cont current meds, do test I just ordered And will fu with dr royal * Telephone Encounter - Pat Higgins - 06/18/2011 9:24 AM CDT On diltizam bid; After he takes med; notices he is getting some tremors - in face, arms, and legs - Pt is concerned about side effects and damage to liver - How to proceed? documented in this encounter Plan of Treatment Upcoming Encounters Date Type Department Care Team (Late st Contact Info) Description 12/13/2024 9:45 AM LANDFILL GAS COLLECTION SYSTEM OPERATOR Office Visit [facility] Oncology and Hematology - [place] [address] [facility] [address] [place] [address] Glenn Al MD [address] [facility] [address] [place] [address] documented as of this encounter Visit Diagnoses Not on filedocumented in this encounter Care Teams Channel Layer Relationship Specialty Start Date End Date Ilan Whitley DO [address] [place] [address] PCP - General 09/07/09 07/31/20 documented as of this encounter
--- OUTSIDE RECORDS SUMMARY | 2024-10-30 02:35 | XMS_ITS | Encounter Summary ---
Author Organization [facility] Address [address] [place] [address] Care Team Providers Care Track Liner Operator Name Role Phone Ilan Whitley DO Primary Care Provider Reason for Visit * Reason Onset Date Comments Medication Review 11/19/2010 Encounter Details Date Type Department Care Team (Late st Contact Info) Description 11/19/2010 Telephone [facility] Internal Medicine [place] [id number] [place] [address] Ilan Whitley DO 1585 [facility] [address] [place] [address] Medication Review Social History Tobacco Use Types [...] Telephone Encounter - Ilan Whitley DO - 11/19/2010 2:51 PM MOTTLER MACHINE FEEDER That is ok LER MACHINE FEEDER * Telephone Encounter - Debbie Crocker - 11/19/2010 1:59 PM CST Insurance company would not cover levitra they called for a change to viagra 100 mg #12 is this ok? LER MACHINE FEEDER documented in this encounter Plan of Treatment Upcoming Encounters Date Type Department Care Team (Late st Contact Info) Description 12/13/2024 9:45 AM MOTTLER MACHINE FEEDER Office Visit [facility] Oncology and Hematology - [place] 2227 [facility] 200 [place] [address] Glenn Al MD 2227 [facility] 100 [place] [address] documented as of this encounter Visit Diagnoses Not on filedocumented in this encounter Care Teams Track Liner Operator Relationship Specialty Start Date End Date Ilan Whitley DO [address] [place] [address] PCP - General 09/07/09 07/31/20 documented as of this encounter
--- OUTSIDE RECORDS SUMMARY | 2024-10-30 02:35 | XMS_ITS | Encounter Summary ---
Author Organization [facility] Address [address] [place] [address] Care Team Providers Care Cargo Station Worker Name Role Phone Ilan Whitley DO Primary Care Provider Reason for Referral * Eval and Treat (Routine) - Closed Specialty Diagnoses / Procedures Referred By Contact Referred To Contact Interventional Cardiology / Cardiology Diagnoses HTN (hypertension) Ilan Whitley DO [address] [place] [address] Eleazar Mishra MD [facility] [address] [facility] [address] [place] [address] Referral ID Status Reason Start Date Expiration Date V isits Requested Visits Authorized [id number] Closed Ordering Dept To Review (STL) 06/16/2011 06/15/2012 6 6 Reason for Visit * Reason Onset Date Comments Advice Only 06/12/2011 Encounter Details Date Type Department Care Team (Late st Contact Info) Description 06/12/2011 Telephone [facility] Internal Medicine [place] [phone] [place] [address] Ilan Whitley DO [address] [place] [address] Advice Only Social History Tobacco [...] encounter Miscellaneous Notes * Telephone Encounter - Siobhan Worthington - 06/16/2011 12:52 PM CDT Sent to [facility]. * Telephone Encounter - Ilan Whitley DO - 06/16/2011 12:44 PM CDT Pt will Need dough molder For opinion On HTN , dr mishra * Telephone Encounter - Pat Higgins - 06/12/2011 9:53 AM CDT Please call - Pt has concern regarding Maxide prescribed for bp while you were out; would like to discuss with you documented in this encounter Plan of Treatment Upcoming Encounters Date Type Department Care Team (Late st Contact Info) Description 12/13/2024 9:45 AM DIE FINISHER FORGING Office Visit [facility] Oncology and Hematology - [place] [address] [place] [address] Glenn Al MD 2227 [facility] [address] [place] [address] Scheduled Referrals Name Type Priority Associated Diagnoses Order Schedule AMB REFERRAL TO CARDIOLOGY Outpatient Referral Routine HTN (hypertension) Ordered: 06/16/2011 documented as of this encounter Visit Diagnoses Diagnosis HTN (hypertension)- Primary Unspecified essential hypertension documented in this encounter Care Teams Cargo Station Worker Relationship Specialty Start Date End Date Ilan Whitley DO [address] [place] [address] PCP - General 09/07/09 07/31/20 documented as of this encounter
--- OUTSIDE RECORDS SUMMARY | 2024-10-30 02:35 | XMS_ITS | Encounter Summary ---
Author Organization [facility] Address [address] [place] [address] Care Team Providers Care Nutritionists Name Role Phone Ilan Whitley DO Primary Care Provider Reason for Visit * Reason Onset Date Comments Advice Only 06/20/2011 Encounter Details Date Type Department Care Team (Late st Contact Info) Description 06/20/2011 Telephone [facility] Internal Medicine [place] [phone] [place] [address] Ilan Whitley, 15[address] [facility] [address] [place] [address] Advice Only Social History Tobacco [...] * Telephone Encounter - Pat Higgins - 06/20/2011 11:52 AM CDT Spoke w/pt - Pt's going to schedule appt w/Dr. Mishra/ gave him #. * Telephone Encounter - Ilan Whitley DO - 06/20/2011 11:35 AM CDT Will await results Cont capoten and maxzide. Is he going to jacqueline appt with dr mishra? Give him then number * Telephone Encounter - Pat Higgins - 06/20/2011 10:33 AM CDT 1)Just received results from 24 hour holter monitor - dx'd w/ heart murmur & afib;; and was told he needed to see reinforced ironworker Pt will have results will fax them to you - 2) cardipress and maxzide - went to ER - bp 186/96 - Er doc gave pt capoten 25mg at 2:30am bp 140/80; local dr - did give him rx for this - Stopped cardi press and will continue maxzide unless you tell him too - Wants to know your thoughts on this - documented in this encounter Plan of Treatment Upcoming Encounters Date Type Department Care Team (Late st Contact Info) Description 12/13/2024 9:45 AM RN INTERN Office Visit [facility] Oncology and Hematology - [place] 2[address] [facility] 200 [place] [address] Glenn Al MD 2[address] [facility] [address] [place] [address] documented as of this encounter Visit Diagnoses Not on filedocumented in this encounter Care Teams Nutritionists Relationship Specialty Start Date End Date Ilan Whitley DO [address] [place] [address] PCP - General 09/07/09 07/31/20 documented as of this encounter
--- OUTSIDE RECORDS SUMMARY | 2024-10-30 02:35 | XMS_ITS | Encounter Summary ---
Author Organization [facility] Address [address] [place] [address] Care Team Providers Care Recreational Counselor Name Role Phone Ilan Whitley DO Primary Care Provider Reason for Visit * Reason Comments Other fatigue, ov Encounter Details Date Type Department Care Team (Late st Contact Info) Description 09/25/2010 3:00 PM ASIC ENGINEER Office Visit [facility] Internal Medicine [facility] [address] [address] [facility] 320 [place] [address] Ilan Whitley DO 1585 [facility] [address] [place] [address] Hyperlipidemia; BPH (benign prostatic hyperplasia); Malaise and fatigue; Allergic rhinitis Social History Tobacco Use Types Packs/Day Years [...] Sign Reading Time Taken Comments Blood Pressure 128/72 09/25/2010 2:25 PM ASIC ENGINEER Pulse - - Temperature - - Respiratory Rate - - Oxygen Saturation - - Inhaled Oxygen Concentration - - Weight 82.6 kg (182 lb) 09/25/2010 2:25 PM ASIC ENGINEER Height - - Body Mass Index 28.51 09/07/2009 10:23 AM ASIC ENGINEER documented in this encounter Progress Notes * Ilan Whitley DO - 09/25/2010 2:45 PM CST HISTORY OF PRESENT ILLNESS Ilan Mccauley, a 70 y.o. male. HPI Allergy Allergy - related review: asthma, eye irritation, eye itching, post nasal drip, rhinorrhea, seasonal symptoms, wheezing and well controlled on otc meds, sudafed Hyperlipidemia Cardiovascular risk analysis: LDL goal is under 100, hyperlipidemia. Hyperlipidemia-related review: no chest pain on exertion, no dyspnea on exertion, no edema, using ot c meds . Patient Active Problem List Diagnoses Code ??? BPH (Benign Prostatic Hyperplasia) 600.90AJ ??? Erectile Dysfunction 607.84D ??? Hyperlipidemia 272.4S ??? Family Hx of Prostate Cancer V16.42K ??? Special Screening for Malignant Neoplasm of Prostate V76.44 ??? Malaise and Fatigue 780.79Z ??? Special Screening for Malignant Neoplasms, Colon V76.51 ??? Allergic Rhinitis 477.9AD Patient Active Problem List Diagnoses Date Noted ??? BPH (Benign Prostatic Hyperplasia) [600.90AJ] 09/07/2009 ??? Erectile Dysfunction [607.84D] 09/07/2009 ??? Hyperlipidemia [272.4S] 09/07/2009 ??? Family Hx of Prostate Cancer [V16.42K] 09/07/2009 Overview Note: mGF ??? Special Screening for Malignant Neoplasm of Prostate [V76.44] 09/07/2009 ??? Malaise and Fatigue [780.79Z] 09/07/2009 ??? Special Screening for Malignant Neoplasms, Colon [V76.51] 09/07/2009 ??? Allergic Rhinitis [477.9AD] 09/07/2009 Current outpatient prescriptions ordered prior to encounter Medication Sig Dispense Refill ??? finasteride (PROSCAR) 5 mg Oral Tab Take 5 mg by mouth daily. Caution: When administering finasteride, women should not handle crushed or bro ??? LACTOBACILLUS/FOS/PECTIN (PROBIOTIC COMPLEX PO) Take by mouth. ??? UBIDECARENONE/VITAMIN E MIXED (COQ10 SG 100 PO) Take by mouth. ??? cyanocobalamin (VITAMIN B-12) 1,000 mcg Oral Tab Take 1,000 mcg by mouth daily. ??? omega-3 acid ethyl esters (LOVAZA) 1 gram Oral Cap Take 4 Gram by mouth daily. ??? Vardenafil (LEVITRA) 20 mg Oral Tab Take 20 mg by mouth 1 time daily as needed. Allergies Allergen Reactions ??? Codeine Nausea and Vomiting Makes patient extremely ill Past Surgical History Procedure Date ??? Chg colonoscopy,biopsy 2007 polyps ??? Hx appendectomy History Substance Use Topics ??? Tobacco Use: Never ??? Alcohol Use: No No results found for this basename: HGBA1C:3, MICROALBUMIN, MALBUR, [id number], LDLCALC, LDLDIRECT, CREAT No results found for this basename: CHOLTOT:3, HDL:3, LDLCA, LDLDIRECT:3, TRIGLYCERIDE:3, ALT, AST No results found for this basename: CREAT, CREATPOC, BUN, BUNPOC, NA, K, KPOC, CL, CO2, CREATCLEAR,[id number], GFR No results found for this basename: WBC, MANUALWBC, HGB, HGBPOC, HCT, HCTPOC, PLT, MCV, IRON, TIBC,FERRITIN REVIEW OF SYSTEMS Review of Systems Constitutional: Negative for fever, chills and malaise/fatigue. HENT: Negative for ear pain, congestion, sore throat and ear discharge. Respiratory: Negative for cough, sputum production, shortness of breath and wheezing. Cardiovascular: Negative for chest pain. Gastrointestinal: Negative for nausea, vomiting, abdominal pain and diarrhea. Genitourinary: Negative for dysuria, frequency and hematuria. The patient denies urinary hesitancy, nocturia, frequency or incomplete voiding. Well controlled and imporved on proscar Neurological: Negative for headaches. Endo/Heme/Allergies: Positive for environmental allergies. PHYSICAL EXAM Wt 182 lb (82.555 kg) Physical Exam Constitutional: He appears well-developed and [...] Skin: No rash noted. ASSESSMENT and PLAN: Encounter Diagnoses 1. Hyperlipidemia (272.4S) 2. BPH (benign prostatic hyperplasia) (600.90AJ) 3. Malaise and fatigue (780.79Z) 4. Allergic rhinitis (477.9AD) Will cont current meds as directed. Pt is tolerating meds without side effects. Chronic med conditons are stable. Labs were reviewed and are lnormal See orders for additional labs or RX . Fu in 6 months months for cpe. ENGINEER documented in this encounter Plan of Treatment Upcoming Encounters Date Type Department Care Team (Late st Contact Info) Description 12/13/2024 9:45 AM ASIC ENGINEER Office Visit [facility] Oncology and Hematology [facility] 2[address] [facility] 200 [place] [address] Glenn Al MD 2[address] [facility] [address] [place] [address] documented as of this encounter Visit Diagnoses Diagnosis Hyperlipidemia Other and unspecified hyperlipidemia BPH (benign prostatic hyperplasia) Unspecified hyperplasia of prostate without urinary obstruction and other lower urinary tract symptoms (LUTS) Malaise and fatigue Other malaise and fatigue Allergic rhinitis Allergic rhinitis, cause unspecified documented in this encounter Care Teams Recreational Counselor Relationship Specialty Start Date End Date Ilan Whitley DO [address] [place] [address] PCP - General 09/07/09 07/31/20 documented as of this encounter
--- OUTSIDE RECORDS SUMMARY | 2024-10-30 02:35 | XMS_ITS | Encounter Summary ---
Author Organization [facility] Address [address] [place] [address] Care Team Providers Care Distance Learning Technician Name Role Phone Ilan Whitley DO Primary Care Provider Reason for Visit * Reason Comments Blood Pressure Check BP Encounter Details Date Type Department Care Team (Late st Contact Info) Description 04/07/2011 3:30 PM CDT Office Visit [facility] Internal Medicine [facility] [address] [address] [facility] [address] [place] [address] Ilan Whitley DO 15[address] [facility] [address] [place] [address] HTN (hypertension) (Primary Dx) Social History Tobacco Use Types [...] Sign Reading Time Taken Comments Blood Pressure 148/78 04/07/2011 3:13 PM CDT Pulse - - Temperature - - Respiratory Rate - - Oxygen Saturation - - Inhaled Oxygen Concentration - - Weight 80.7 kg (178 lb) 04/07/2011 3:13 PM CDT Height 170.2 cm (5' 7 ) 04/07/2011 3:13 PM CDT Body Mass Index 27.88 04/07/2011 3:13 PM CDT documented in this encounter Progress Notes * Bandar Rosales - 04/07/2011 3:47 PM CDTAddended by: BANDAR ROSALES on: 04/07/2011 Modules accepted: Orders * GutierrezIlan, - 04/07/2011 3:35 PM CDT HISTORY OF PRESENT ILLNESS Ilan Mccauley, a 70 y.o. male. HPI Hypertension Hypertension-related review: taking medications as instructed, no side effects of medications, no chest pain on exertion, no dyspnea on exertion, no edema, home BP monitoring in range of 130- 180's systolic over 60 - 100's diastolic, no chest pain on exertion, no intermittent claudication symptoms,no orthopnea or paroxysmal nocturnal dyspnea, no orthostatic dizziness or lightheadedness. Patient Active Problem List Diagnoses Code ??? BPH (Benign Prostatic Hyperplasia) 600.90AJ ??? Erectile Dysfunction 607.84D ??? Hyperlipidemia 272.4S ??? Family Hx of Prostate Cancer V16.42K ??? Special Screening for Malignant Neoplasm of Prostate V76.44 ??? Malaise and Fatigue 780.79Z ??? Special Screening for Malignant Neoplasms, Colon V76.51 ??? Allergic Rhinitis 477.9AD ??? HTN (hypertension) 401.9AF Patient Active Problem List Diagnoses Date Noted ??? HTN (hypertension) [401.9AF] ??? BPH (Benign Prostatic Hyperplasia) [600.90AJ] 09/07/2009 [...] by mouth daily. 90 Tab 3 ??? lisinopril (PRINIVIL) 20 mg Oral tablet Take 1 Tab by mouth daily. 30 Tab 6 ??? vardenafil (LEVITRA) 20 mg Oral tablet Take 1 Tab by mouth 1 time daily as needed. 15 Tab 3 ??? Vardenafil (LEVITRA) 20 mg Oral Tab Take 20 mg by mouth 1 time daily as needed. ??? LACTOBACILLUS/FOS/PECTIN (PROBIOTIC COMPLEX PO) Take by mouth. ??? UBIDECARENONE/VITAMIN E MIXED (COQ10 SG 100 PO) Take by mouth. ??? cyanocobalamin (VITAMIN B-12) 1,000 mcg Oral Tab Take 1,000 mcg by mouth daily. ??? omega-3 acid ethyl esters (LOVAZA) 1 gram Oral Cap Take 4 Gram by mouth daily. Allergies Allergen Reactions ??? Codeine Nausea and Vomiting Makes patient extremely ill Past Surgical History Procedure Date ??? Chg colonoscopy,biopsy 2007 polyps ??? Hx appendectomy History Substance Use Topics ??? Smoking status: Never Smoker ??? Smokeless tobacco: Never Used ??? Alcohol Use: No No results found for this basename: HGBA1C:3, MICROALBUMIN, MALBUR, [id number], LDLCALC, LDLDIRECT, CREAT No results found for this basename: CHOLTOT:3, HDL:3, LDLCA, LDLDIRECT:3, TRIGLYCERIDE:3, ALT, AST No results found for this basename: CREAT, CREATPOC, BUN, BUNPOC, NA, K, KPOC, CL, CO2, CREATCLEAR,[id number], GFR No results found for this basename: WBC, MANUALWBC, HGB, HGBPOC, HCT, HCTPOC, PLT, MCV, IRON, TIBC,FERRITIN REVIEW OF SYSTEMS Review of Systems Constitutional: Negative for fever, chills and malaise/fatigue. HENT: Negative for ear pain, congestion, sore throat and ear discharge. Respiratory: Negative for cough, hemoptysis, sputum production, shortness of breath and wheezing. Cardiovascular: Negative for chest pain. Gastrointestinal: Negative for nausea, vomiting, abdominal pain and diarrhea. Genitourinary: Negative for dysuria, frequency and hematuria. Neurological: Negative for headaches. PHYSICAL EXAM Ht 5' 7 (1.702 m) Wt 178 lb (80.74 kg) BMI 27.88 kg/m2 Physical Exam Constitutional: He appears well-developed [...] noted. ASSESSMENT and PLAN: Encounter Diagnoses 1. HTN (hypertension) (401.9AF) Will cont lisinopril 20 mg bid And inc norvasc to 10 mg qd. Will add asa 81 q d Add clonidine prn documented in this encounter Plan of Treatment Upcoming Encounters Date Type Department Care Team (Late st Contact Info) Description 12/13/2024 9:45 AM LEGAL OFFICE ADMINISTRATOR Office Visit [facility] Oncology and Hematology - [place] 2[address] [facility] [address] [place] [address] Glenn Al MD 2[address] [facility] [address] [place] [address] documented as of this encounter Visit Diagnoses Diagnosis HTN (hypertension)- Primary Unspecified essential hypertension documented in this encounter Care Teams Distance Learning Technician Relationship Specialty Start Date End Date Ilan Whitley DO [address] [place] [address] PCP - General 09/07/09 07/31/20 documented as of this encounter
--- OUTSIDE RECORDS SUMMARY | 2024-10-30 02:35 | XMS_ITS | Encounter Summary ---
Author Organization [facility] Address [address] [place] [address] Care Team Providers Care Trauma Manager Name Role Phone Ilan Whitley DO Primary Care Provider Encounter Details Date Type Department Care Team (Late st Contact Info) Description 09/10/2009 Abstract [facility] [place] [facility] Medicine [address] [place] [address] Ilan Whitley DO [address] [place] [address] Social History Tobacco Use Types [...] st Contact Info) Description 12/13/2024 9:45 AM ROUTE SALESMAN AND DRIVER Office Visit [facility] Oncology and Hematology - [place] [address] [facility] [address] [place] [address] Glenn Al MD [address] [facility] [address] [place] [address] documented as of this encounter Procedures Procedure Name Priority Date/Time Associated Diagnosis Comments MISCELLANEOUS LAB TEST Routine 08/07/2009 documented in this encounter Results * MISCELLANEOUS LAB TEST (08/07/2009) MISCELLANEOUS LAB TEST EXTERNAL LAB SPECIMEN TYPE EXTERNAL LAB MISCELLANEOUS LAB TEST EXTERNAL LAB Specimen of unknown material (specimen) Ilan Whitley DO CHEMISTRY JACKY MALCOLM [facility] Organization Address City/State/ZIP Co de Phone Number EXTERNAL LAB documented in this encounter Visit Diagnoses Not on filedocumented in this encounter Care Teams Trauma Manager Relationship Specialty Start Date End Date Ilan Whitley DO [address] [address] PCP - General 09/07/09 07/31/20 documented as of this encounter
--- OUTSIDE RECORDS SUMMARY | 2024-10-30 02:35 | XMS_ITS | Encounter Summary ---
Author Organization [facility] Address [address] [place] [address] Care Team Providers Care Infrastructure Manager Name Role Phone Ilan Whitley DO Primary Care Provider Reason for Visit * Reason Onset Date Comments Question 03/12/2010 Encounter Details Date Type Department Care Team (Late st Contact Info) Description 03/12/2010 Telephone [facility] Internal Medicine [address] [place] [address] Ilan Whitley DO [address] [place] [address] Question Social History Tobacco Use Types Packs/Day [...] Telephone Encounter - Ilan Whitley DO - 03/12/2010 11:19 AM CDT I have nresults from * Telephone Encounter - Debbie Crocker - 03/12/2010 10:43 AM CDT Pt had blood work done at [facility], he would like to know if you receivedthe results, he asked them to send them to our office, before his tatum 5-17-10 documented in this encounter Plan of Treatment Upcoming Encounters Date Type Department Care Team (Late st Contact Info) Description 12/13/2024 9:45 AM WEEDER Office Visit [facility] Oncology and Hematology - [place] [address] [facility] [place] [address] Glenn Al MD 2[address] [facility] [address] [place] [address] documented as of this encounter Visit Diagnoses Not on filedocumented in this encounter Care Teams Infrastructure Manager Relationship Specialty Start Date End Date Ilan Whitley DO [address] [place] [address] PCP - General 09/07/09 07/31/20 documented as of this encounter
--- OUTSIDE RECORDS SUMMARY | 2024-10-30 02:35 | XMS_ITS | Encounter Summary ---
Author Organization [facility] Address [address] [place] [address] Care Team Providers Care Managed Care Specialist Name Role Phone GutierrezIlan DO Primary Care Provider Encounter Details Date Type Department Care Team (Late st Contact Info) Description 06/24/2011 Abstract [facility] [address] [place] [address] Eleazar Mishra MD [address] [place] [address] [address] [place] [address] Social History Tobacco Use Types Packs/Day Years [...] st Contact Info) Description 12/13/2024 9:45 AM FOUNDRY MELT SUPERVISOR Office Visit [facility] Oncology and Hematology - [place] 2[address] [facility] [address] [place] [address] Glenn Al MD [address] [facility] [address] [place] [address] documented as of this encounter Procedures Procedure Name Priority Date/Time Associated Diagnosis Comments MISCELLANEOUS LAB TEST Routine 06/18/2011 HC CARDIOPULMONARY BYPASS Routine 06/16/2011 EKG 12-LEAD Routine 06/15/2011 documented in this encounter Results * MISCELLANEOUS LAB TEST (06/18/2011) MISCELLANEOUS LAB TEST [facility] Specimen of unknown material (specimen) Stl Other CHEMISTRY ORDERABLES [facility] CLIA# [id number] [address] [place] [address] * [facility] CARDIOPULMONARY BYPASS (06/16/2011) Fred Gracia MD [facility] SURGERY EXTERNAL RADIOLOGY * EKG 12-LEAD (06/15/2011) Fred Garcia MD ECG ORDERABLES EXTERNAL RADIOLOGY documented in this encounter Visit Diagnoses Not on filedocumented in this encounter Care Teams Managed Care Specialist Relationship Specialty Start Date End Date Ilan Whitley DO [address] [place] [address] PCP - General 09/07/09 07/31/20 documented as of this encounter
--- OUTSIDE RECORDS SUMMARY | 2024-10-30 02:35 | XMS_ITS | Encounter Summary ---
Author Organization [facility] Address [address] [place] [address] Care Team Providers Care Folding Machine Setter Name Role Phone Anirudh Craft MD Primary Care Provider Reason for Visit * Reason Onset Date Comments Medication Refill 03/19/2011 Encounter Details Date Type Department Care Team (Late st Contact Info) Description 03/19/2011 Refill Central Business Office [address] [place] [address] Mychart, Generic Provider Social History Tobacco Use Types Packs/Day Years [...] * Telephone Encounter - Debbie Crocker - 03/25/2011 10:49 AM CDT ESTHER- * Telephone Encounter - Debbie Crocker - 03/25/2011 10:37 AM CDTFrom: ILNA MCCAULEY Sent: ThuMarch 19, 2011 9:36 AM Subject: Medication Renewal Request Ilan Mccauley would like a refill of the following medications: Preferred pharmacy: [facility]aster[facility] 5mg daily, 90 day supply Comment: Thought I requested this refill from [facility] but they show no record of it. Need 90 day refill home delivery, [address], [place] [id number] contact me if a problem with refill. Other - see comments for explanation documented in this encounter Plan of Treatment Upcoming Encounters Date Type Department Care Team (Late st Contact Info) Description 12/13/2024 9:45 AM PARQUETRY FLOOR LAYER Office Visit [facility] Oncology and Hematology - [place] [address] [facility] [address] [place] [address] Glenn Al MD [address] [facility] [address] [place] [address] documented as of this encounter Visit Diagnoses Not on filedocumented in this encounter Care Teams Folding Machine Setter Relationship Specialty Start Date End Date Anirudh Craft MD [address] [facility] [address] [place] [address] PCP - General Internal Medicine 08/01/20 09/19/24 documented as of this encounter
--- OUTSIDE RECORDS SUMMARY | 2024-10-30 02:35 | XMS_ITS | Encounter Summary ---
Author Organization [facility] Address [address] [place] [address] Care Team Providers Care Data Compiler Name Role Phone Anirudh Craft MD Primary Care Provider Reason for Visit * Reason Onset Date Comments Medication Refill 03/10/2011 Encounter Details Date Type Department Care Team (Late st Contact Info) Description 03/10/2011 Refill Central Business Office [address] [place] [address] Mychart, Generic Provider Social History Tobacco Use [...] st Contact Info) Description 12/13/2024 9:45 AM PODIATRIC TECHNICIAN Office Visit [facility] Oncology and Hematology - [place] [address] [facility] [address] [place] [address] Glenn Al MD [address] [facility] [address] [place] [address] documented as of this encounter Visit Diagnoses Not on filedocumented in this encounter Care Teams Data Compiler Relationship Specialty Start Date End Date Anirudh Craft MD [address] [facility] [address] [place] [address] PCP - General Internal Medicine 08/01/20 09/19/24 documented as of this encounter
--- OUTSIDE RECORDS SUMMARY | 2024-10-30 02:35 | XMS_ITS | Encounter Summary ---
Author Organization [facility] Address [address] [place] [address] Care Team Providers Care Dental Services Director Name Role Phone Ilan Whitley DO Primary Care Provider Reason for Visit * Reason Onset Date Comments Question 06/23/2011 event moniotr Encounter Details Date Type Department Care Team (Late st Contact Info) Description 06/23/[address] [facility] At [address] [place] [address] Kailee Le RN Question (event moniotr) Social History Tobacco Use Types Packs/Day Years [...] Miscellaneous Notes * Telephone Encounter - Kailee Le RN - 06/23/2011 3:[address] Mishra:I think he can wear it while out of town since I think it functions on digital cell phone technology. Pt is willing to keep on even monitor during his camping trips to the [facility]. * Telephone Encounter - Kailee Le RN - 06/23/2011 1:58 PM CDT Pt calls wanting Dr Mishra to know that he had event monitor placed on today. He is going out of [facility] 07-08-11 and concerned he will not be able to wear this and be able to transfer the data as needed. He was also wanting Dr Mishra to know his Stress test today went well. I told him that he does need to continue to wear the event monitor as long as possible. I will forward to Dr Mishra and call pt back if Dr Mishra has any objections. documented in this encounter Plan of Treatment Upcoming Encounters Date Type Department Care Team (Late st Contact Info) Description 12/13/2024 9:45 AM RECYCLABLE MATERIALS SORTER Office Visit [facility] Oncology and Hematology [facility] [address] [facility] [address] [place] [address] Glenn Al MD [address] [facility] [address] [place] [address] documented as of this encounter Visit Diagnoses Not on filedocumented in this encounter Care Teams Dental Services Director Relationship Specialty Start Date End Date Ilan Whitley DO [address] [place] [address] PCP - General 09/07/09 07/31/20 documented as of this encounter
--- OUTSIDE RECORDS SUMMARY | 2024-10-30 02:35 | XMS_ITS | Encounter Summary ---
Author Organization [facility] Address [address] [place] [address] Care Team Providers Care Geosciences Associate Professor Name Role Phone Ilan Whitley DO Primary Care Provider Reason for Visit * Reason Comments Physical EOV Encounter Details Date Type Department Care Team (Late st Contact Info) Description 03/18/2010 2:15 PM CDT [facility] [place] [facility] [address] [place] [address] Ilan Whitley DO [address] [place] [address] Hyperlipidemia; BPH (Benign Prostatic Hyperplasia); Erectile Dysfunction; Special Screening for Malignant Neoplasm of Prostate; Malaise and Fatigue; Special Screening for Malignant Neoplasms, Colon Social History Tobacco Use Types Packs/Day Years [...] Sign Reading Time Taken Comments Blood Pressure 122/62 03/18/2010 2:10 PM CDT Pulse - - Temperature - - Respiratory Rate - - Oxygen Saturation - - Inhaled Oxygen Concentration - - Weight 79.8 kg (176 lb) 03/18/2010 2:10 PM CDT Height - - Body Mass Index 27.57 09/07/2009 10:23 AM TIGHTENER documented in this encounter Progress Notes * GutierrezIlan, DO - 03/18/2010 2:27 PM CDT HISTORY OF PRESENT ILLNESS Ilan Mccauley, a 69 y.o. male. HPI Here for annual f/u on below conditions Allergy Allergy - related review: ear pressure, ear puritis, eye itching, nasal congestion, nasal puritis and well controlled on sudafed/benadryl Hyperlipidemia Cardiovascular risk analysis: LDL goal is under 100, hyperlipidemia. Hyperlipidemia-related review: no chest pain on exertion, no dyspnea on exertion, no edema, otc fish oil. H/o BPH wh is well controlled and imporved on proscar Qd. No side effects from med Patient Active Problem List Diagnoses Code ??? [...] Take 4 Gram by mouth daily. ??? Multivitamin Oral Cap Take by mouth. ??? Vardenafil (LEVITRA) 20 mg Oral Tab Take 20 mg by mouth 1 time daily as needed. Allergies Allergen Reactions ??? Codeine Nausea and Vomiting Makes patient extremely ill Past Medical History Diagnosis Date ??? BPH (Benign Prostatic Hyperplasia) ??? Erectile Dysfunction ??? Hyperlipidemia ??? Allergic Rhinitis Past Surgical History Procedure Date ??? Chg colonoscopy,biopsy 2007 polyps ??? Hx appendectomy Family History Problem Relation ??? Unknown Father ??? Hypertension Mother ??? Stroke Mother ??? Heart Disease Maternal Grandmother ??? Cancer Maternal Grandfather prostate History Substance Use Topics ??? Tobacco Use: Never ??? Alcohol Use: No No results found for this basename: HGBA1C:3, MICROALBUMIN, MALBUR, QBIIIU12, LDLCALC, LDLDIRECT, CREAT No results found for this basename: CHOLTOT:3, HDL:3, LDLCA, LDLDIRECT:3, TRIGLYCERIDE:3, ALT, AST No results found for this basename: CREAT, CREATPOC, BUN, BUNPOC, NA, K, KPOC, CL, CO2, CREATCLEAR,[id number], GFR No results found for this basename: WBC, MANUALWBC, HGB, HGBPOC, HCT, HCTPOC, PLT, MCV, IRON, TIBC,FERRITIN No results found for this basename: ALT, AST, GGT, ALKPHOS, BILIDIRECT, BILIURUBINDI, BILIINDIRECT,BILITOTAL REVIEW OF SYSTEMS Review of Systems Constitutional: Negative for fever, chills, weight loss and malaise/fatigue. HENT: Negative for hearing loss, nosebleeds, congestion and sore throat. Eyes: Negative for blurred vision and double vision. Respiratory: Negative for cough, sputum production, shortness of breath and wheezing. Cardiovascular: Negative for chest pain, palpitations and leg swelling. Gastrointestinal: Negative for heartburn, nausea, vomiting, abdominal pain, diarrhea, constipation and blood in stool. Genitourinary: Negative for dysuria, frequency and hematuria. He complains of urinary hesitancy, weak stream, double and incomplete voiding, intermittent urinaryfrequency and nocturia times 1-2. Well controlled on proscar ED sxs better, needin levitra less Musculoskeletal: Negative for myalgias and joint pain. Skin: Negative for rash. Neurological: Negative for dizziness, focal weakness and headaches. Endo/Heme/Allergies: Positive for environmental allergies (uses otc sudafed benadryl). Negative forpolydipsia. Does not bruise/bleed easily. Psychiatric/Behavioral: Negative for depression. The patient is not nervous/anxious. PHYSICAL EXAM Wt 176 lb (79.833 kg) Physical Exam Constitutional: He is oriented to person, place, and time. He appears well- developed and well-nourished. No distress. HENT: Head: Normocephalic and atraumatic. Right Ear: External ear normal. Left Ear: External ear normal. Nose: Nose normal. Mouth/Throat: Oropharynx is clear and moist. No oropharyngeal exudate. Eyes: Conjunctivae and extraocular motions are normal. Pupils are equal, round, and [...] sounds are normal. He exhibits no distension. No tenderness. He has no rebound. Genitourinary: Prostate normal and penis normal. Guaiac negative stool. Musculoskeletal: Normal range of motion. He exhibits no edema and no tenderness. Lymphadenopathy: He has no cervical adenopathy. Neurological: He is alert and oriented to person, place, and time. He displays normal reflexes. No cranial nerve deficit. Skin: Skin is warm and dry. No rash noted. Psychiatric: He has a normal mood and affect. ASSESSMENT and PLAN: Encounter Diagnoses 1. Hyperlipidemia (272.4S) 2. BPH (Benign Prostatic Hyperplasia) (600.90AJ) 3. Erectile Dysfunction (607.84D) 4. Special Screening for Malignant Neoplasm of Prostate (V76.44) 5. Malaise and Fatigue (780.79Z) 6. Special Screening for Malignant Neoplasms, Colon (V76.51) Will cont current meds as directed. Pt is tolerating meds without side effects. Chronic med conditons are stable. Labs were not reviewed and are lnormal See orders for additional labs or RX . Fu in 12 months months forCPE. HM reviewed and UTD documented in this encounter Plan of Treatment Upcoming Encounters Date Type Department Care Team (Late st Contact Info) Description 12/13/2024 9:45 AM TIGHTENER Office Visit [facility] Oncology and Hematology [facility] [address] [facility] [address] [place] [address] Glenn Al MD [address] [facility] [address] [place] [address] documented as of this encounter Visit Diagnoses Diagnosis Hyperlipidemia Other and unspecified hyperlipidemia BPH (benign prostatic hyperplasia) Unspecified hyperplasia of prostate without urinary obstruction and other lower urinary tract symptoms (LUTS) Erectile dysfunction Impotence of organic origin Special screening for malignant neoplasm of prostate Malaise and fatigue Other malaise and fatigue Special screening for malignant neoplasms, colon documented in this encounter Care Teams Geosciences Associate Professor Relationship Specialty Start Date End Date Ilan Whitley DO [address] [place] [address] PCP - General 09/07/09 07/31/20 documented as of this encounter
--- OUTSIDE RECORDS SUMMARY | 2024-10-30 02:35 | XMS_ITS | Encounter Summary ---
Author Organization [facility] Address [address] [place] [address] Care Team Providers Care Ceramic Design Engineer Name Role Phone Ilan Whitley DO Primary Care Provider Reason for Visit * Reason Onset Date Comments Labs Only 06/17/2011 Encounter Details Date Type Department Care Team (Late st Contact Info) Description 06/17/2011 Telephone [facility] Internal Medicine [place] [id number] [place] [address] [address] [place] [address] Ilan Whitley, DO [address] [facility] [address] [place] [address] Labs Only Social History Tobacco [...] * Telephone Encounter - Jessa Rosales - 06/18/2011 9:27 AM CDT Will go to [facility]./ /az /az Faxed over/az * Telephone Encounter - Jessa Rosales - 06/17/2011 1:06 PM CDT Placed orders/ pt will go to ??? [facility] with which lab./az * Telephone Encounter - Ilan Whitley DO - 06/17/2011 12:55 PM CDT Dx fo all is HTN documented in this encounter Plan of Treatment Upcoming Encounters Date Type Department Care Team (Late st Contact Info) Description 12/13/2024 9:45 AM FUR COAT SEWER Office Visit [facility] Oncology and Hematology - [place] [address] [facility] [address] [place] [address] Glenn Al MD [address] [facility] [address] [place] [address] documented as of this encounter Visit Diagnoses Diagnosis Hypertension- Primary Unspecified essential hypertension documented in this encounter Care Teams Ceramic Design Engineer Relationship Specialty Start Date End Date Ilan Whitley DO [address] [place] [address] PCP - General 09/07/09 07/31/20 documented as of this encounter
--- OUTSIDE RECORDS SUMMARY | 2024-10-30 02:35 | XMS_ITS | Encounter Summary ---
Author Organization [facility] Address [address] [place] [address] Care Team Providers Care Video Effects Editor Name Role Phone Ilan Whitley DO Primary Care Provider Reason for Visit * Reason Comments Follow Up Establish Care Encounter Details Date Type Department Care Team (Late st Contact Info) Description 09/07/2009 10:30 AM ANTIQUE JEWELRY REPAIRER Office Visit [facility] Internal Medicine [address] [place] [address] Ilan Whitley DO [address] [place] [address] Family Hx of Prostate Cancer; BPH (Benign Prostatic Hyperplasia); Hyperlipidemia; Special Screening for Malignant Neoplasm of Prostate; Special Screening for Malignant Neoplasms, Colon; Malaise and Fatigue Social History Tobacco Use Types Packs/Day Years [...] Sign Reading Time Taken Comments Blood Pressure 130/70 09/07/2009 10:23 AM ANTIQUE JEWELRY REPAIRER Pulse - - Temperature - - Respiratory Rate - - Oxygen Saturation - - Inhaled Oxygen Concentration - - Weight 82.1 kg (181 lb) 09/07/2009 10:23 AM ANTIQUE JEWELRY REPAIRER Height 170.2 cm (5' 7 ) 09/07/2009 10:23 AM ANTIQUE JEWELRY REPAIRER Body Mass Index 28.35 09/07/2009 10:23 AM ANTIQUE JEWELRY REPAIRER documented in this encounter Progress Notes * ConnieIlan land S, DO - 09/07/2009 10:40 AM CST HISTORY OF PRESENT ILLNESS Ilan Mccauley, a 69 y.o. male. HPI Here as new pt/cpe Allergy Allergy - related review: ear pressure, eye itching, loss of sense of smell, morning sore throat, nasal congestion, nasal puritis, post nasal drip, rhinorrhea and well contolled on ot c meds Hyperlipidemia Cardiovascular risk analysis: LDL goal is under 100, hyperlipidemia. Hyperlipidemia-related review: no chest pain on exertion, no dyspnea on exertion, no edema. H/o BPH Well controlled on proscar. No side effect. No obs sxs Patient Active Problem List Diagnoses Code ??? BPH (Benign Prostatic Hyperplasia) 600.90AJ ??? Erectile Dysfunction 607.84D ??? Hyperlipidemia 272.4S ??? Family Hx of Prostate Cancer V16.42K ??? Special Screening for Malignant Neoplasm of Prostate V76.44 ??? Malaise and Fatigue 780.79Z ??? Special Screening for Malignant Neoplasms, Colon V76.51 ??? Allergic Rhinitis 477.9AD Patient Active Problem List Diagnoses Date Noted BPH (Benign Prostatic Hyperplasia) [600.90AJ] 09/07/2009 Erectile Dysfunction [607.84D] 09/07/2009 Hyperlipidemia [272.4S] 09/07/2009 Family Hx of Prostate Cancer [V16.42K] 09/07/2009 Overview Note: mGF Special Screening for Malignant Neoplasm of Prostate [V76.44] 09/07/2009 Malaise and Fatigue [780.79Z] 09/07/2009 Special Screening for Malignant Neoplasms, Colon [V76.51] 09/07/2009 Allergic Rhinitis [477.9AD] 09/07/2009 No current outpatient prescriptions on file prior to encounter. Allergies Allergen Reactions ??? Codeine Nausea and [...] No No results found for this basename: HGBA1C:3,MICROALBUMIN,MALBUR,PGVZEX13,LDLCALC,LDLDIRECT,CREAT No results found for this basename: CHOLTOT:3,HDL:3,LDLCA,LDLDIRECT:3,TRIGLYCERIDE:3,ALT,AST No results found for this basename: CREAT,CREATPOC,BUN,BUNPOC,NA,K,KPOC,CL,CO2,CREATCLEAR,[id number],GFR No results found for this basename: WBC,MANUALWBC,HGB,HGBPOC,HCT,HCTPOC,PLT,MCV,IRON,TIBC,FERRITIN No results found for this basename: ALT,AST,GGT,ALKPHOS,BILIDIRECT,BILIURUBINDI,BILIINDIRECT,BILITOTAL REVIEW OF SYSTEMS Review of Systems Constitutional: [...] incomplete voiding, intermittent urinaryfrequency and nocturia times 1. Doing well and imporved on proscar + ED sxs On levitra Musculoskeletal: Negative for myalgias and joint pain. Skin: Negative for rash. Neurological: Negative for dizziness, focal weakness and headaches. Endo/Heme/Allergies: Positive for environmental allergies (spring/fall CHANG, otc meds). Negative forpolydipsia. Does not bruise/bleed easily. Psychiatric/Behavioral: Negative for depression. The patient is not nervous/anxious. PHYSICAL EXAM Ht 5' 7 (1.702 m) Wt 181 lb (82.101 kg) Physical Exam Constitutional: He is oriented. He appears well-developed and well-nourished. No distress. HENT: Head: Normocephalic [...] tenderness. He has no rebound. Genitourinary: Prostate normal. Guaiac negative stool. Musculoskeletal: Normal range of motion. He exhibits no edema and no tenderness. Lymphadenopathy: He has no cervical adenopathy. Neurological: He is alert and oriented. He displays normal reflexes. No cranial nerve deficit. Skin: Skin is warm and dry. No rash noted. Psychiatric: He has a normal mood and affect. ASSESSMENT and PLAN: Encounter Diagnoses Code Name Primary? Qualifier ??? V16.42K Family Hx of Prostate Cancer Plan: PSA MEDICARE SCREEN ??? 600.90AJ BPH (Benign Prostatic Hyperplasia) ??? 272.4S Hyperlipidemia Plan: LIPID PANEL, COMPREHENSIVE METABOLIC PANEL ??? V76.44 Special Screening for Malignant Neoplasm of Prostate Plan: PSA MEDICARE SCREEN ??? V76.51 Special Screening for Malignant Neoplasms, Colon Plan: POC OCCULT BLOOD 1 CARD ??? 780.79Z Malaise and Fatigue Plan: CBC WITH DIFFERENTIAL, TSH REFLEXIVE, URINALYSIS WITH REFLEX CULTURE nl well exam/ Labs reviewed. Elevated LDL, but pt wishes to avoid statin And will cont lovaza HM reviewed and UTD. Cont current meds Fu 1 yrs QUE JEWELRY REPAIRER documented in this encounter Plan of Treatment Upcoming Encounters Date Type Department Care Team (Late st Contact Info) Description 12/13/2024 9:45 AM ANTIQUE JEWELRY REPAIRER Office Visit [facility] Oncology and Hematology - [place] [address] [facility] [address] [place] [address] Glenn Al MD [address] [facility] [address] [place] [address] Scheduled Orders Name Type Priority Associated Diagnoses Orde r Schedule POC OCCULT BLOOD 1 CARD Point of Care Testing Routine Special Screening for Malignant Neoplasms, Colon Ordered: 09/07/2009 documented as of this encounter Visit Diagnoses Diagnosis Family hx of prostate cancer Family history of malignant neoplasm of prostate BPH (benign prostatic hyperplasia) Unspecified hyperplasia of prostate without urinary obstruction and other lower urinary tract symptoms (LUTS) Hyperlipidemia Other and unspecified hyperlipidemia Special screening for malignant neoplasm of prostate Special screening for malignant neoplasms, colon Malaise and fatigue Other malaise and fatigue documented in this encounter Care Teams Video Effects Editor Relationship Specialty Start Date End Date Ilan Whitley DO [address] [place] [address] PCP - General 09/07/09 07/31/20 documented as of this encounter
--- OUTSIDE RECORDS SUMMARY | 2024-10-30 02:35 | XMS_ITS | Encounter Summary ---
Author Organization [facility] Address [address] [place] [address] Care Team Providers Care Roll Press Operator Name Role Phone GutierrezIlan DO Primary Care Provider Encounter Details Date Type Department Care Team (Latest Contact Info) Description 06/23/2011 9:04 AM CDT - 06/23/2011 11:59 PM CDT Hospital Encounter [facility] Non Invasive Cardiology [address] [place] [address] Eleazar Mishra MD [address] [facility] [address] [place] [address] Discharge Disposition: Home or Self [...] daily. 11/17/2011 documented as of this encounter Plan of Treatment Upcoming Encounters Date Type Department Care Team (Late st Contact Info) Description 12/13/2024 9:45 AM ICT SUPPORT TECHNICIANS Office Visit [facility] Oncology and Hematology - [place] [address] [facility] [address] [place] [address] Glenn Al MD [address] [facility] [address] [place] [address] documented as of this encounter Visit Diagnoses Diagnosis PAF (paroxysmal atrial fibrillation) Atrial fibrillation documented in this encounter Care Teams Roll Press Operator Relationship Specialty Start Date End Date Ilan Whitley DO [address] [place] [address] PCP - General 09/07/09 07/31/20 documented as of this encounter
--- OUTSIDE RECORDS SUMMARY | 2024-10-30 02:35 | XMS_ITS | Encounter Summary ---
Author Organization [facility] Address [address] [place] [address] Care Team Providers Care Studio Artist Name Role Phone Ilan Whitley DO Primary Care Provider Reason for Visit * Reason Onset Date Comments Labs Only 09/19/2010 Encounter Details Date Type Department Care Team (Late Contact Info) Description 09/19/2010 Telephone [facility] Internal Medicine [place] [id number] [place] [address] [address] [place] [address] Ilan Whitley, DO [address] [facility] [address] [place] [address] Labs Only Social History Tobacco [...] * Telephone Encounter - Jessa Rosales - 09/19/2010 11:01 AM CST Wants psa done also./az Pt aware that this is okay./az will go to c and c/az IDE INDUSTRIAL SALES REPRESENTATIVE documented in this encounter Plan of Treatment Upcoming Encounters Date Type Department Care Team (Late Contact Info) Description 12/13/2024 9:45 AM OUTSIDE INDUSTRIAL SALES REPRESENTATIVE Office Visit [facility] Oncology and Hematology - [place] [address] [facility] [address] [place] [address] Glenn Al MD [address] [facility] [address] [place] [address] documented as of this encounter Results * PSA MEDICARE SCREEN (09/25/2010 2:05 PM OUTSIDE INDUSTRIAL SALES REPRESENTATIVE) PSA, SCREEN 1.6 0.0 - 4.0 ng/mL [facility] Comment:Performed on [employer] System Blood specimen (specimen) 09/25/2010 2:05 PM OUTSIDE INDUSTRIAL SALES REPRESENTATIVE 09/25/2010 7:00 PM OUTSIDE INDUSTRIAL SALES REPRESENTATIVE Ilan Whitley DO CHEMISTRY ORDE Portable Scores COM [facility] CLIA# [id number] [address] [place] [address] documented in this encounter Visit Diagnoses Diagnosis Special screening for malignant neoplasm of prostate- Primary Special screening for malignant neoplasm of prostate documented in this encounter Care Teams Studio Artist Relationship Specialty Start Date End Date Ilan Whitley DO [address] [place] [address] PCP - General 09/07/09 07/31/20 documented as of this encounter
--- OUTSIDE RECORDS SUMMARY | 2024-10-30 02:35 | XMS_ITS | Encounter Summary ---
Author Organization [facility] Address [address] [place] [address] Care Team Providers Care Sales Order Processor Name Role Phone ConnieIlan land DO Primary Care Provider Reason for Visit * Reason Onset Date Comments Wants Appointment 07/01/2011 Encounter Details Date Type Department Care Team (Late st Contact Info) Description 07/01/2011 Telephone [facility] Heart and Vascular At [address] [place] [address] Kailee Le RN Wants Appointment Social History Tobacco Use Types Packs/Day Years [...] Telephone Encounter - Kailee Le RN - 07/01/2011 3:07 PM CDT Pt agreed to OV 07/21/11 @ 1245. * Telephone Encounter - Kailee Le RN - 07/01/2011 2:48 PM CDT Pt calls in requesting OV. He has specific times he is available due to upcoming travel. Will forward to Jeannie PARKER for asst. documented in this encounter Plan of Treatment Upcoming Encounters Date Type Department Care Team (Late st Contact Info) Description 12/13/2024 9:45 AM CREW MEMBER Office Visit [facility] Oncology and Hematology - [place] [address] [facility] [address] [place] [address] Glenn Al MD [address] [facility] [address] [place] [address] documented as of this encounter Visit Diagnoses Not on filedocumented in this encounter Care Teams Sales Order Processor Relationship Specialty Start Date End Date Ilan Whitley DO [address] [place] [address] PCP - General 09/07/09 07/31/20 documented as of this encounter
--- OUTSIDE RECORDS SUMMARY | 2024-10-30 02:35 | XMS_ITS | Encounter Summary ---
Author Organization [facility] Address [address] [place] [address] Care Team Providers Care Burrito Maker Name Role Phone Ilan Whitley DO Primary Care Provider Encounter Details Date Type Department Care Team (Late st Contact Info) Description 05/01/2011 Abstract [facility] Internal Medicine [facility] [phone] [facility] [address] [place] [address] Ilan Whitley DO [address] [facility] [address] [place] [address] Social History Tobacco Use Types [...] st Contact Info) Description 12/13/2024 9:45 AM REHABILITATION AIDE Office Visit [facility] Oncology and Hematology - [place] [address] [place] [address] Glenn Al MD [address] [facility] [address] [place] [address] documented as of this encounter Procedures Procedure Name Priority Date/Time Associated Diagnosis Comments MISCELLANEOUS LAB TEST Routine 04/22/2011 documented in this encounter Results * MISCELLANEOUS LAB TEST (04/22/2011) MISCELLANEOUS LAB TEST EXTERNAL LAB Specimen of unknown material (specimen) Ilan Whitley DO [facility] Organization Address City/State/ZIP Co de Phone Number EXTERNAL LAB documented in this encounter Visit Diagnoses Not on filedocumented in this encounter Care Teams Burrito Maker Relationship Specialty Start Date End Date Ilan Whitley DO [address] [place] [address] PCP - General 09/07/09 07/31/20 documented as of this encounter
--- OUTSIDE RECORDS SUMMARY | 2024-10-30 02:35 | XMS_ITS | Encounter Summary ---
Author Organization [facility] Address [address] [place] [address] Care Team Providers Care Event Lighting Specialist Name Role Phone Ilan Whitley DO Primary Care Provider Reason for Visit * Reason Comments Elevated Blood Pressure Encounter Details Date Type Department Care Team (Late st Contact Info) Description 06/11/2011 4:15 PM CDT Office Visit [facility] Internal Medicine [address] [address] Vinicio Whitley MD NO ADDRESS ON FILE HTN (hypertension); Heart murmur previously undiagnosed Social History Tobacco [...] Sign Reading Time Taken Comments Blood Pressure 140/78 06/11/2011 3:57 PM CDT Pulse 76 06/11/2011 3:57 PM CDT Temperature 37 ??C (98.6 ??F) 06/11/2011 3:57 PM CDT Respiratory Rate 16 06/11/2011 3:57 PM CDT Oxygen Saturation 98% 06/11/2011 3:57 PM CDT Inhaled Oxygen Concentration - - Weight 85.3 kg (188 lb) 06/11/2011 3:57 PM CDT Height - - Body Mass Index 26.98 05/16/2011 12:36 PM CDT documented in this encounter Progress Notes * Fernanda Pruett - 06/11/2011 4:36 PM CDTAddended by: FERNANDA PRUETT on: 06/11/2011 Modules accepted: Orders * Fernanda Pruett - 06/11/2011 4:35 PM CDT Pt needs one tab to get filled until his local pharmacy opens tomorrow * Vinicio Whitley MD - 06/11/2011 4:07 PM CDT HISTORY OF PRESENT ILLNESS Ilan Mccauley, a 70 y.o. male. HPIhpt follow up faile norvasc and catapres and the avel i no ill effects Had the bp for several months new problem mom of hpt at 44 No chest pain or tightness very anxious as well no swelling in the feet no chest pain or dyspnea avoids salt in his diet Patient Active Problem List Diagnoses Code ??? BPH (Benign Prostatic Hyperplasia) 600.90AJ ??? Erectile Dysfunction 607.84D ??? Hyperlipidemia 272.4S ??? Family Hx of Prostate Cancer V16.42K ??? Special Screening for Malignant Neoplasm of Prostate V76.44 ??? Malaise and Fatigue 780.79Z ??? Special Screening for Malignant Neoplasms, Colon V76.51 ??? Allergic Rhinitis 477.9AD ??? HTN (hypertension) 401.9AF ??? Heart murmur previously undiagnosed 785.2CN Patient Active Problem List Diagnoses Date Noted ??? Heart murmur previously undiagnosed [785.2CN] 06/11/2011 ??? HTN (hypertension) [401.9AF] ??? BPH (Benign [...] to encounter Medication Sig Dispense Refill ??? diltiazem (CARDIZEM) 90 mg Oral tablet Take 1 Tab by mouth 3 times daily. 90 Tab 3 ??? DISCONTD: diltiazem LA 24 hour (CARDIZEM LA) 180 mg Oral tablet Take 1 Tab by mouth daily. 30 Tab 3 ??? ALPRAZolam (XANAX) 0.25 mg Oral tablet [...] Family history of prostate cancer m gf Past Surgical History Procedure Date ??? Chg colonoscopy,biopsy 2007 polyps ??? Hx appendectomy Family History Problem Relation Age of Onset ??? Unknown Father ??? Hypertension Mother ??? Stroke Mother ??? Heart Disease Maternal Grandmother ??? Cancer Maternal Grandfather prostate History Substance Use Topics ??? Smoking status: Never Smoker ??? Smokeless tobacco: Never Used ??? Alcohol Use: No No results found for this basename: HGBA1C:3, MICROALBUMIN, MALBUR, CRVSQT99, LDLCALC, LDLDIRECT, CREAT No results found for this basename: CHOLTOT:3, HDL:3, LDLCA, LDLDIRECT:3, TRIGLYCERIDE:3, ALT, AST No results found for this basename: CREAT, CREATPOC, BUN, BUNPOC, NA, K, KPOC, CL, CO2, CREATCLEAR,[id number], GFR No results found for this basename: ALT, AST, GGT, ALKPHOS, BILIDIRECT, BILIURUBINDI, BILIINDIRECT,BILITOTAL REVIEW OF SYSTEMS Review of Systems Constitutional: Negative for fever, chills, appetite change, fatigue and unexpected weight change. HENT: Negative for ear pain, nosebleeds, congestion, sore throat, rhinorrhea, sneezing, trouble swallowing, postnasal drip, sinus pressure and tinnitus. Eyes: Negative for visual disturbance. Respiratory: Negative for apnea, cough, chest tightness, shortness of breath and wheezing. Cardiovascular: Negative for chest pain, palpitations and leg swelling. Gastrointestinal: Negative for nausea, abdominal pain, blood in stool and abdominal distention. Genitourinary: Negative for dysuria, frequency, hematuria and difficulty urinating. Musculoskeletal: Negative for joint swelling and arthralgias. Skin: Negative for rash and color change. Neurological: Negative for dizziness, tremors, seizures, syncope, light- headedness and headaches. Hematological: Negative for adenopathy. Does not bruise/bleed easily. Psychiatric/Behavioral: Negative for sleep disturbance. The patient is not nervous/anxious. PHYSICAL EXAM BP 140/78 Pulse 76 Temp(Src) 98.6 ??F (37 ??C) (Oral) Resp 16 Wt 188 lb (85.276 kg) SpO2 98% Physical Exam Constitutional: He appears well-developed and well-nourished. Neck: Normal range of motion. Neck supple. No thyromegaly present. Cardiovascular: Normal rate, regular rhythm and intact distal pulses. Exam reveals no gallop and nofriction rub. Murmur heard. Crescendo systolic murmur is present with a grade of 3/6 Pulmonary/Chest: Effort normal and breath sounds normal. No respiratory distress. He has no wheezes. He has no rales. He exhibits no tenderness. Abdominal: Soft. Bowel sounds are normal. He exhibits no distension. No tenderness. He has no rebound and no guarding. Musculoskeletal: Normal range of motion. He exhibits no edema and no tenderness. Lymphadenopathy: He has no cervical adenopathy. Skin: Skin is warm and dry. No rash noted. No erythema. ASSESSMENT and PLAN: Encounter Diagnoses 1. HTN (hypertension) (401.9AF) 2. Heart murmur previously undiagnosed (785.2CN) ECHO COMPLETE documented in this encounter Plan of Treatment Upcoming Encounters Date Type Department Care Team (Late st Contact Info) Description 12/13/2024 9:45 AM CONSOLIDATION ACCOUNTANT Office Visit [facility] Oncology and Hematology - [place] [address] [facility] [address] [place] [address] Glenn Al MD [address] [facility] [address] [place] [address] documented as of this encounter Visit Diagnoses Diagnosis HTN (hypertension) Unspecified essential hypertension Heart murmur previously undiagnosed Undiagnosed cardiac murmurs documented in this encounter Care Teams Event Lighting Specialist Relationship Specialty Start Date End Date Ilan Whitley DO [address] [place] [address] PCP - General 09/07/09 07/31/20 documented as of this encounter
--- OUTSIDE RECORDS SUMMARY | 2024-10-30 02:35 | XMS_ITS | Encounter Summary ---
Author Organization [facility] Address [address] [place] [address] Care Team Providers Care Muffler Mechanic Name Role Phone Ilan Whitley DO Primary Care Provider Encounter Details Date Type Department Care Team (Latest Contact Info) Description 09/25/2010 2:00 PM RETAIL ACCOUNT EXECUTIVE - 09/25/2010 11:59 PM [facility] Hospital Encounter [facility] General Laboratory [place] [address] [place] [address] Ilan Whitley DO [address] [place] [address] Discharge Disposition: Home or Self [...] Sig Dispensed Refills Start Date End Date finasteride (PROSCAR) 5 mg Oral Tab Take 5 mg by mouth daily. Caution: When administering finasteride, women should not handle crushed or bro 03/26/2011 Vardenafil (LEVITRA) 20 mg Oral Tab Take 20 mg by mouth 1 time daily as needed. 05/16/2011 LACTOBACILLUS/FOS/PEC TIN (PROBIOTIC COMPLEX PO) Take by mouth. 07/21/2011 cyanocobalamin (VITAMIN B-12) 1,000 mcg Oral Tab Take 1,000 mcg by mouth daily. 11/26/2015 omega-3 acid ethyl esters (LOVAZA) 1 gram Oral Cap Take 4 Gram by mouth daily. 11/17/2011 documented as of this encounter Plan of Treatment Upcoming Encounters Date Type Department Care Team (Late st Contact Info) Description 12/13/2024 9:45 AM RETAIL ACCOUNT EXECUTIVE Office Visit [facility] Oncology and Hematology - [place] [address] [facility] [address] [place] [address] Glenn Al MD [address] [facility] [address] [place] [address] documented as of this encounter Procedures Procedure Name Priority Date/Time Associated Diagnosis Comments PSA MEDICARE SCREEN Routine 09/25/2010 2 :05 PM RETAIL ACCOUNT EXECUTIVE Special screening for malignant neoplasm of prostate documented in this encounter Results * PSA MEDICARE SCREEN (09/25/2010 2:05 PM RETAIL ACCOUNT EXECUTIVE) PSA, SCREEN 1.6 0.0 - 4.0 ng/mL [facility] Comment:Performed on [employer] System Blood specimen (specimen) 09/25/2010 2:05 PM RETAIL ACCOUNT EXECUTIVE 09/25/2010 7:00 PM RETAIL ACCOUNT EXECUTIVE Ilan Whitley DO CHEMISTRY [employer]int[employer] [facility] CLIA# [id number] [address] [facility] [place] [address] documented in this encounter Visit Diagnoses Diagnosis Special screening for malignant neoplasm of prostate documented in this encounter Care Teams Muffler Mechanic Relationship Specialty Start Date End Date Ilan Whitley DO [address] [place] [address] PCP - General 09/07/09 07/31/20 documented as of this encounter
--- OUTSIDE RECORDS SUMMARY | 2024-10-30 02:35 | XMS_ITS | Encounter Summary ---
Author Organization [facility] Address [address] [place] [address] Care Team Providers Care Cone Sewer Name Role Phone Ialn Whitley DO Primary Care Provider Encounter Details Date Type Department Care Team (Late st Contact Info) Description 06/26/2011 Abstract [facility] Internal Medicine [facility] [phone] [facility] [address] [place] [phone] Ilan Whitley DO [address] [facility] [address] [place] [address] Social History Tobacco Use Types [...] st Contact Info) Description 12/13/2024 9:45 AM TRAVEL REGISTERED NURSE PACU Office Visit [facility] Oncology and Hematology - [place] [address] [place] [address] Glenn Al MD [address] [facility] [address] [place] [address] documented as of this encounter Procedures Procedure Name Priority Date/Time Associated Diagnosis Comments MISCELLANEOUS LAB TEST Routine 06/19/2011 documented in this encounter Results * MISCELLANEOUS LAB TEST (06/19/2011) MISCELLANEOUS LAB TEST EXTERNAL LAB Specimen of unknown material (specimen) St[facility] Other CHEMISTRY ORDERABLES EXTERNAL LAB documented in this encounter Visit Diagnoses Not on filedocumented in this encounter Care Teams Cone Sewer Relationship Specialty Start Date End Date Ilan Whitley DO [address] [place] [phone] PCP - General 09/07/09 07/31/20 documented as of this encounter
--- OUTSIDE RECORDS SUMMARY | 2024-10-30 02:35 | XMS_ITS | Encounter Summary ---
Author Organization [facility] Address [address] [place] [address] Care Team Providers Care Firefighter Type One Name Role Phone Ilan Whitley DO Primary Care Provider Reason for Visit * Reason Onset Date Comments Elevated Blood Pressure 06/23/2011 Encounter Details Date Type Department Care Team (Late st Contact Info) Description 06/23/2011 Telephone [facility] Internal Medicine [facility] [phone] [address] Ilan Whitley DO [address] [facility] [address] [place] [address] Elevated Blood Pressure Social History Tobacco Use Types [...] * Telephone Encounter - Pat Higgins - 06/23/2011 12:04 PM CDT Pt notified.ker * Telephone Encounter - Ilan Whitley DO - 06/23/2011 10:49 AM CDT Ok to take extra capoten. * Telephone Encounter - Temitope Higginsly - 06/23/2011 10:37 AM CDT Just completed stress test - no afib or heart murmur detected; bp went way up - 190/100 - during test On 25mg captopril tid; on maxzide 37.5-25mg 1 po daily 1) Will you please prescribe catopril 25mg tid; 2) how to proceed if bp increases - ok to take an extra catopril? documented in this encounter Plan of Treatment Upcoming Encounters Date Type Department Care Team (Late st Contact Info) Description 12/13/2024 9:45 AM SALESPERSON WOMEN'S DRESSES Office Visit [facility] Oncology and Hematology - [place] [address] [facility] [address] [place] [address] Glenn Al MD [address] [facility] [address] [place] [address] documented as of this encounter Visit Diagnoses Not on filedocumented in this encounter Care Teams Firefighter Type One Relationship Specialty Start Date End Date Ilan Whitley DO [address] [place] [address] PCP - General 09/07/09 07/31/20 documented as of this encounter
--- OUTSIDE RECORDS SUMMARY | 2024-10-30 02:35 | XMS_ITS | Encounter Summary ---
Author Organization [facility] Address [address] [place] [address] Care Team Providers Care Business Services Clerk Name Role Phone Ilan Whitley DO Primary Care Provider Reason for Visit * Reason Comments Physical Encounter Details Date Type Department Care Team (Late st Contact Info) Description 05/16/2011 1:45 PM CDT Office Visit [facility] Internal Medicine [place] [id number] [place] [address] Ilan Whitley, DO [address] [facility] [address] [place] [address] HTN (hypertension); Hyperlipidemia; Allergic rhinitis; BPH (benign prostatic hyperplasia); Malaise and fatigue; Special screening for malignant neoplasm of prostate; Special screening for malignant neoplasms, colon; Erectile dysfunction Social History Tobacco Use Types Packs/Day Years [...] Sign Reading Time Taken Comments Blood Pressure 118/62 05/16/2011 12:36 PM CDT Pulse - - Temperature - - Respiratory Rate - - Oxygen Saturation - - Inhaled Oxygen Concentration - - Weight 81.6 kg (180 lb) 05/16/2011 12:36 PM CDT Height 177.8 cm (5' 10 ) 05/16/2011 12:36 PM CDT Body Mass Index 25.83 05/16/2011 12:36 PM CDT documented in this encounter Progress Notes * Gutierrez Ilan Merry, DO - 05/16/2011 12:40 PM CDT HISTORY OF PRESENT ILLNESS Ilan Mccauley, a 70 y.o. male. HPI Here for annual cpe Hyperlipidemia Cardiovascular risk analysis: LDL goal is under 100, hypertension, hyperlipidemia. Hyperlipidemia-related review: no chest pain on [...] no orthopnea or paroxysmal nocturnal dyspnea, notes fatigue, notes orthostatic dizziness or lightheadedness. Patient Active Problem [...] to encounter Medication Sig Dispense Refill ??? ALPRAZolam (XANAX) 0.25 mg Oral tablet Take 1 Tab by mouth 2 times daily as needed for Anxiety.45 Tab 1 ??? amLODIPine (NORVASC) 10 mg Oral tablet Take 1 Tab by mouth daily. 30 Tab 6 ??? DISCONTD: cloNIDine (CATAPRES) 0.2 mg Oral tablet Take 1 Tab by mouth 3 times daily. 60 Tab 1 ??? finasteride (PROSCAR) 5 mg [...] 4 Gram by mouth daily. ??? DISCONTD: Vardenafil (LEVITRA) 20 mg Oral Tab Take [...] found for this basename: HGBA1C:3, MICROALBUMIN, MALBUR, [id number], LDLCALC, LDLDIRECT, CREAT No results found for this basename: CHOLTOT:3, HDL:3, LDLCA, LDLDIRECT:3, TRIGLYCERIDE:3, ALT, AST No results found for this basename: CREAT, CREATPOC, BUN, BUNPOC, NA, K, KPOC, CL, CO2, CREATCLEAR,[id number], GFR No results found for this basename: WBC, MANUALWBC, HGB, HGBPOC, HCT, HCTPOC, PLT, MCV, IRON, TIBC,FERRITIN No results found for this basename: ALT, AST, GGT, ALKPHOS, BILIDIRECT, BILIURUBINDI, BILIINDIRECT,BILITOTAL No results found for this basename: TSH, TSHULTRA, THYROIDSTIM, T3, T3FREE, R1UBDXWM, T4, T4FREE, TPO, THROIDAB, THYROIDMI No results found for this basename: PSA:3 REVIEW OF SYSTEMS Review of Systems Constitutional: Negative for fever, chills, weight loss and malaise/fatigue. HENT: Negative for hearing loss, nosebleeds, congestion and sore throat. Eyes: Negative for blurred vision and double vision. Respiratory: Negative for cough, sputum production, shortness of breath and wheezing. Cardiovascular: Negative for chest pain, palpitations and leg swelling. Gastrointestinal: Positive for constipation. Negative for heartburn, nausea, vomiting, abdominal pain, diarrhea and blood in stool. Genitourinary: Negative for dysuria, frequency and hematuria. The patient denies urinary hesitancy, nocturia, frequency or incomplete voiding. imporved on proscar + ED sxs on levitra prn Musculoskeletal: Negative for myalgias and joint pain. Skin: Negative for rash. Mouth sores Since norvasc Neurological: Negative for dizziness, focal weakness and headaches. Endo/Heme/Allergies: Positive for environmental allergies (stable on otc meds). Negative for polydipsia. Does not bruise/bleed easily. Psychiatric/Behavioral: Negative for depression. The patient is not nervous/anxious. Mild issues with shira blackmon PHYSICAL EXAM Ht 5' 10 (1.778 m) Wt 180 lb (81.647 kg) BMI 25.83 kg/m2 Physical Exam Constitutional: He is oriented [...] affect. ASSESSMENT and PLAN: Encounter Diagnoses 1. HTN (hypertension) (401.9AF) 2. Hyperlipidemia (272.4S) 3. Allergic rhinitis (477.9AD) 4. BPH (benign prostatic hyperplasia) (600.90AJ) 5. Malaise and fatigue (780.79Z) 6. Special screening for malignant neoplasm of prostate (V76.44) 7. Special screening for malignant neoplasms, colon (V76.51) POC OCCULT BLOOD 1 CARD 8. Erectile dysfunction (607.84D) Nl well exam. meds and labs reviewed . Will stop lisinopril as no help per pt. Will stop norvacs aspt feels it gives side effects of stool changes and mouth sores. However BP is well controlled. Will begin cardizem LA 180 mg qd And reeval in 2 mon reviewed and UTD documented in this encounter Plan of Treatment Upcoming Encounters Date Type Department Care Team (Late st Contact Info) Description 12/13/2024 9:45 AM PUBLIC HEALTH VETERINARIAN Office Visit [facility] Oncology and Hematology - [place] [address] [facility] [address] [place] [address] Glenn Al MD [address] [facility] [address] [place] [address] Scheduled Orders Name Type Priority Associated Diagnoses Orde r Schedule POC OCCULT BLOOD 1 CARD Point of Care Testing Routine Special screening for malignant neoplasms, colon Ordered: 05/16/2011 documented as of this encounter Visit Diagnoses Diagnosis HTN (hypertension) Unspecified essential hypertension Hyperlipidemia Other and unspecified hyperlipidemia Allergic rhinitis Allergic rhinitis, cause unspecified BPH (benign prostatic hyperplasia) Unspecified hyperplasia of prostate without urinary obstruction and other lower urinary tract symptoms (LUTS) Malaise and fatigue Other malaise and fatigue Special screening for malignant neoplasm of prostate Special screening for malignant neoplasms, colon Erectile dysfunction Impotence of organic origin documented in this encounter Care Teams Business Services Clerk Relationship Specialty Start Date End Date Ilan Whitley DO [address] [place] [address] PCP - General 09/07/09 07/31/20 documented as of this encounter
--- OUTSIDE RECORDS SUMMARY | 2024-10-30 02:35 | XMS_ITS | Encounter Summary ---
Author Organization [facility] Address [address] [place] [address] Care Team Providers Care Office Coordinator Receptionist Name Role Phone Ilan Whitley DO Primary Care Provider Encounter Details Date Type Department Care Team (Late st Contact Info) Description 04/29/2011 Abstract [facility] Internal Medicine [facility] [phone] [facility] [address] [place] [address] Ilan Whitley DO [address] [facility] [address] [place] [address] Social History Tobacco Use Types [...] st Contact Info) Description 12/13/2024 9:45 AM HOME AID Office Visit [facility] Oncology and Hematology - [place] [address] [place] [address] Glenn Al MD [address] [facility] [address] [place] [address] documented as of this encounter Procedures Procedure Name Priority Date/Time Associated Diagnosis Comments MISCELLANEOUS LAB TEST Routine 04/22/2011 documented in this encounter Results * MISCELLANEOUS LAB TEST (04/22/2011) MISCELLANEOUS LAB TEST [facility] Specimen of unknown material (specimen) Stl Other CHEMISTRY ORDERABLES Performing Organization Address City/State/[facility] Co de Phone Number [facility] CLIA# [id number] [address] [place] [address] documented in this encounter Visit Diagnoses Not on filedocumented in this encounter Care Teams Office Coordinator Receptionist Relationship Specialty Start Date End Date Ilan Whitley DO [address] [place] [address] PCP - General 09/07/09 07/31/20 documented as of this encounter
--- OUTSIDE RECORDS SUMMARY | 2024-10-30 02:35 | XMS_ITS | Encounter Summary ---
Author Organization [facility] Address [address] [place] [address] Care Team Providers Care Mathematics Technician Name Role Phone Ilan Whitley DO Primary Care Provider Reason for Visit * Reason Onset Date Comments Medication Question 05/08/2011 Encounter Details Date Type Department Care Team (Late st Contact Info) Description 05/08/2011 Telephone [facility] Internal Medicine [place] [id number] [place] [address] Ilan Whitley DO [address] [facility] [address] [place] [address] Medication Question Social History Tobacco Use Types [...] Telephone Encounter - Ilan Whitley DO - 05/08/2011 3:14 PM CDT ninfa pt * Telephone Encounter - Radha Cedeño Lay - 05/08/2011 12:56 PM CDT He is concerned with his blood pressure spiking. Can he take more norvasc if that happens? He takes5 mg in morning and 5 mg in pm. That with lisonopril works, but he is getting spikes and he is not comfortable with having nothing to help him with this. Please advise? * Telephone Encounter - Ilan Whitley DO - 05/08/2011 11:49 AM CDT I would just do lisinopril and norvasc * Telephone Encounter - Radha Cedeño - 05/08/2011 11:18 AM CDT Patient states he tried to call yesterday for medication issues. He would like you to know that he stopped the clonidine and once that dose wore off he felt ok. He would like to know if you have an alternative to the clonidine since he cannot take that. Said thank you for your time-he knows that answering the emails and phone calls takes up your time. documented in this encounter Plan of Treatment Upcoming Encounters Date Type Department Care Team (Late st Contact Info) Description 12/13/2024 9:45 AM NAIL EXPERT Office Visit [facility] Oncology and Hematology - [place] [address] [facility] [address] [place] [address] Glenn Al MD [address] [facility] [address] [place] [address] documented as of this encounter Visit Diagnoses Not on filedocumented in this encounter Care Teams Mathematics Technician Relationship Specialty Start Date End Date Ilan Whitley DO [address] [place] [address] PCP - General 09/07/09 07/31/20 documented as of this encounter
--- OUTSIDE RECORDS SUMMARY | 2024-10-30 02:35 | XMS_ITS | Encounter Summary ---
Author Organization [facility] Address [address] [place] [address] Care Team Providers Care Major Case Detective Name Role Phone Ilan Whitley DO Primary Care Provider Encounter Details Date Type Department Care Team (Late st Contact Info) Description 06/26/2011 Abstract [facility] Internal Medicine [facility] [address] [address] [facility] 320 [place] [phone] Ilan Whitley DO [address] [facility] [address] [place] [address] Social History Tobacco Use Types [...] st Contact Info) Description 12/13/2024 9:45 AM DENTURE WAXER Office Visit [facility] Oncology and Hematology - [place] [address] [place] [address] Glenn Al MD [address] [facility] [address] [place] [address] documented as of this encounter Visit Diagnoses Not on filedocumented in this encounter Care Teams Major Case Detective Relationship Specialty Start Date End Date Ilan Whitley DO [address] [facility] [address] [place] [address] PCP - General 09/07/09 07/31/20 documented as of this encounter
--- OUTSIDE RECORDS SUMMARY | 2024-10-30 02:35 | XMS_ITS | Encounter Summary ---
Author Organization [facility] Address [address] [place] [address] Care Team Providers Care Solderer Barrel Ribs Name Role Phone Ilan Whitley DO Primary Care Provider Reason for Visit * Reason Onset Date Comments Hypertension 06/25/2011 Encounter Details Date Type Department Care Team (Late st Contact Info) Description 06/25/2011 Telephone [facility] Heart and Vascular At [place] [address] [address] [facility] [address] [place] [address] Eleazar Mishra MD [address] [place] [address] [address] [place] [address] Hypertension Social History Tobacco Use Types Packs/Day [...] encounter Miscellaneous Notes * Telephone Encounter - 06/25/2011 3:43 PM CDT I called pt his BP is now 160/90. He takes a xanax because he gets very anxious when his pressure goes up. I encouraged him to go to the ER when he gets that fullness/dizzy feeling and his BP his high. In the mean time I asked him to keep a diary for the next week recording BP twice daily. He will send it in to [facility] for Dr. Mishra to evaluate and make further recommendations. * Telephone Encounter - Eleazar Mishra MD - 06/25/2011 3:29 PM CDT If patient having symptoms associated with HTN, would refer to closest ED for eval. * Telephone Encounter - 06/25/2011 3:07 PM CDT Pt calls with concerns of continued elevated BP. Today his BP was 200/100. Generally it runs 170's/90's. He says he gets a great deal of pressure in his head and some dizziness. Please advise. documented in this encounter Plan of Treatment Upcoming Encounters Date Type Department Care Team (Late st Contact Info) Description 12/13/2024 9:45 AM RING SEWER Office Visit [facility] Oncology and Hematology - [place] [address] [facility] 200 [place] [address] Glenn Al MD [address] [facility] [address] [place] [address] documented as of this encounter Visit Diagnoses Not on filedocumented in this encounter Care Teams Solderer Barrel Ribs Relationship Specialty Start Date End Date Ilan Whitley DO [address] [place] [address] PCP - General 09/07/09 07/31/20 documented as of this encounter
--- OUTSIDE RECORDS SUMMARY | 2024-10-30 02:35 | XMS_ITS | Encounter Summary ---
Author Organization [facility] Address [address] [place] [address] Care Team Providers Care Corporate Services Manager Name Role Phone Ilan Whitley DO Primary Care Provider Reason for Visit * Reason Onset Date Comments Elevated Blood Pressure 06/25/2011 Encounter Details Date Type Department Care Team (Late st Contact Info) Description 06/25/2011 Telephone [facility] Internal Medicine [facility] [address] [address] Ilan Whitley DO [address] [facility] [address] [place] [address] Elevated Blood Pressure Social History [...] * Telephone Encounter - Pat Higgins - 06/25/2011 2:37 PM CDT Pt notified.ker * Telephone Encounter - Ilan Whitley DO - 06/25/2011 2:26 PM CDT All labs are nl. He need t call dr royal That is why we sent him to him to help with bp spikes * Telephone Encounter - Gisela Pat - 06/25/2011 1:20 PM CDT BP spiked to 200/100 today Took another capoten and a xanax Pt is very concerned about the bp spikes - Did you have a chance to review his lab work or the other tests yet? Or any advice on what else he can do to get bp under control? documented in this encounter Plan of Treatment Upcoming Encounters Date Type Department Care Team (Late st Contact Info) Description 12/13/2024 9:45 AM TRICHOLOGIST Office Visit [facility] Oncology and Hematology [facility] 2[address] [facility] 200 [place] [address] Glenn Al MD 2[address] [facility] [address] [place] [address] documented as of this encounter Visit Diagnoses Not on filedocumented in this encounter Care Teams Corporate Services Manager Relationship Specialty Start Date End Date Ilan Whitley DO [address] [place] [address] PCP - General 09/07/09 07/31/20 documented as of this encounter
--- OUTSIDE RECORDS SUMMARY | 2024-10-30 02:35 | XMS_ITS | Encounter Summary ---
Author Organization [facility] Address [address] [place] [address] Care Team Providers Care Chief Operating Officer Name Role Phone Ilan Whitley DO Primary Care Provider Reason for Visit * Reason Onset Date Comments Erroneous encounter-disregard 09/16/2010 Encounter Details Date Type Department Care Team (Late st Contact Info) Description 09/16/2010 Telephone [facility] Internal Medicine [facility] [address] [facility] 320 [place] [address] Ilan Whitley DO [address] [place] [address] [place] [address] Erroneous encounter-disregard Social History Tobacco Use Types [...] st Contact Info) Description 12/13/2024 9:45 AM BIG DATA SOLUTIONS ARCHITECT Office Visit [facility] Oncology and Hematology - [place] [address] [facility] [address] [place] [address] Glenn Al MD [address] [facility] [address] [place] [address] documented as of this encounter Visit Diagnoses Not on filedocumented in this encounter Care Teams Chief Operating Officer Relationship Specialty Start Date End Date Ilan Whitley DO [address] [phone] PCP - General 09/07/09 07/31/20 documented as of this encounter
--- OUTSIDE RECORDS SUMMARY | 2024-10-30 02:35 | XMS_ITS | Encounter Summary ---
Author Organization [facility] Address [address] [place] [address] Care Team Providers Care Chaperon Name Role Phone Ilan Whitley DO Primary Care Provider Encounter Details Date Type Department Care Team (Late Contact Info) Description 11/15/2010 Abstract [facility] Internal Medicine [facility] [address] [address] Provider, Abstract NO ADDRESS ON [...] (Late Contact Info) Description 12/13/2024 9:45 AM RAILROAD TRACK MECHANIC Office Visit [facility] Oncology and Hematology - [place] [address] [facility] [address] [place] [address] Gelnn Al MD [address] [facility] [address] [place] [address] documented as of this encounter Visit Diagnoses Not on filedocumented in this encounter Care Teams Chaperon Relationship Specialty Start Date End Date Ilan Whitley DO [address] [place] [address] PCP - General 09/07/09 07/31/20 documented as of this encounter
--- OUTSIDE RECORDS SUMMARY | 2024-10-30 02:35 | XMS_ITS | Encounter Summary ---
Author Organization [facility] Address [address] [place] [address] Care Team Providers Care Rn Orthopaedic Name Role Phone Ilan Whitley DO Primary Care Provider Encounter Details Date Type Department Care Team (Late st Contact Info) Description 09/25/2010 Orders Only [facility] Laboratory [place] [address] [place] [address] Ilan Whitley, DO [address] [place] [address] [place] [address] Social History Tobacco Use Types [...] st Contact Info) Description 12/13/2024 9:45 AM LOSS PREVENTION SPECIALIST Office Visit [facility] Oncology and Hematology - [place] [address] [facility] [address] [place] [address] Glenn Al MD [address] [facility] [address] [place] [address] documented as of this encounter Visit Diagnoses Not on filedocumented in this encounter Care Teams Rn Orthopaedic Relationship Specialty Start Date End Date Ilan Whitley DO [address] [facility] [address] [place] [address] PCP - General 09/07/09 07/31/20 documented as of this encounter
--- OUTSIDE RECORDS SUMMARY | 2024-10-30 02:35 | XMS_ITS | Encounter Summary ---
Author Organization [facility] Address [address] [place] [address] Care Team Providers Care Corporate Controller Name Role Phone Ilan Whitley DO Primary Care Provider Reason for Visit * Reason Onset Date Comments Labs Only 02/15/2010 Encounter Details Date Type Department Care Team (Late st Contact Info) Description 02/15/2010 Telephone [facility] Internal Medicine [address] [place] [address] Ilan Whitley DO [address] [place] [address] Labs Only Social History Tobacco [...] * Telephone Encounter - Jessa Rosales - 02/15/2010 4:13 PM CDT Spoke with pt, he is aware to fast, Made eov appt for march, mailed orders to pt/az * Telephone Encounter - Jessa Rosales - 02/15/2010 1:09 PM CDT Placed order/az LMTCM/az * Telephone Encounter - Ilan Whitley DO - 02/15/2010 12:54 PM CDT Medicare cpe labs and psa * Telephone Encounter - Jessa Rosales - 02/15/2010 12:29 PM CDT States he needs lab work done/az documented in this encounter Plan of Treatment Upcoming Encounters Date Type Department Care Team (Late st Contact Info) Description 12/13/2024 9:45 AM EYEGLASS MAKER Office Visit [facility] Oncology and Hematology - [place] 2[address] [facility] 200 [place] [address] Glenn Al MD [address] [facility] [address] [place] [address] documented as of this encounter Visit Diagnoses Diagnosis Hyperlipidemia Other and unspecified hyperlipidemia Special screening for malignant neoplasm of prostate Malaise and fatigue Other malaise and fatigue documented in this encounter Care Teams Corporate Controller Relationship Specialty Start Date End Date Ilan Whitley DO [address] [place] [address] PCP - General 09/07/09 07/31/20 documented as of this encounter
--- OUTSIDE RECORDS SUMMARY | 2024-10-30 02:47 | XMS_ITS | Encounter Summary ---
Author Organization [facility] [email or web address] [facility] Address [address] [place] [address] Care Team Providers Care Business Unit Leader Name Role Phone Anirudh Craft MD Primary Care Provider [phone] Encounter Details Date Type Department Care Team (Late Contact Info) Description 11/16/2023 Orders Only [facility] Oncology and Hematology - [place] [address] [place] [address] Glenn Al MD [address] [employer] [address] [place] [address] Cancer, metastatic to bone Social History [...] (Late Contact Info) Description 12/13/2024 9:45 AM GIN CLERK Office Visit [facility] Oncology and Hematology - [place] [address] [place] [address] Glenn Al MD [address] [employer] [address] [place] [address] documented as of this encounter Visit Diagnoses Diagnosis Cancer, 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
--- OUTSIDE RECORDS SUMMARY | 2024-10-30 02:47 | XMS_ITS | Encounter Summary ---
Author Organization [facility] [employer] [facility] Address [address] [place] [address] Care Team Providers Care Grey Goods Marker Name Role Phone Anirudh Craft MD Primary Care Provider Encounter Details Date Type Department Care Team (Late Contact Info) Description 12/17/2023 Orders Only [facility] Oncology and Hematology - Josep [address] [place] [address] Glenn Al MD [address] [place] [address] Social History Tobacco Use Types [...] st Contact Info) Description 12/13/2024 9:45 AM TELEPHONE SOLICITOR Office Visit [facility] Oncology and Hematology - [place] [address] [place] [address] Glenn Al MD [address] [place] [address] documented as of this encounter Procedures Procedure Name Priority Date/Time Associated Diagnosis Comments COMPREHENSIVE METABOLIC PANEL Routine 12/16/2023 2:26 PM TELEPHONE SOLICITOR documented in this encounter Results * COMPREHENSIVE METABOLIC PANEL (12/16/2023 2:26 PM TELEPHONE SOLICITOR) Blood Glenn Al MD CHEMISTRY ORDERABLES documented in this encounter Visit Diagnoses Not on filedocumented in this encounter Care Teams Grey Goods Marker Relationship Specialty Start Date End Date Anirudh Craft MD [address] [phone] PCP - General Internal Medicine 08/01/20 09/19/24 documented as of this encounter
--- OUTSIDE RECORDS SUMMARY | 2024-10-30 02:47 | XMS_ITS | Encounter Summary ---
Author Organization [facility] [employer] [facility] Address [address] [place] [address] Care Team Providers Care Roof Tiler Name Role Phone Anirudh Craft MD Primary Care Provider [phone] Encounter Details Date Type Department Care Team (Late Contact Info) Description 06/27/2024 Orders Only [facility] Oncology and Hematology - Josep [address] [place] [address] Glenn Al MD [address] [place] [address] Cancer, metastatic to bone Social History [...] (Late Contact Info) Description 12/13/2024 9:45 AM SCHOOL OCCUPATIONAL THERAPIST Office Visit [facility] Oncology and Hematology - [place] [address] [place] [address] Glenn Al MD [address] [place] [address] documented as of this encounter Visit Diagnoses Diagnosis Cancer, 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
--- OUTSIDE RECORDS SUMMARY | 2024-10-30 02:48 | XMS_ITS | Encounter Summary ---
Author Organization [email or web address] [facility] Address [address] [place] [address] Care Team Providers Care Vascular Specialists Name Role Phone Anirudh Craft MD Primary Care Provider Reason for Visit * Tx/Med Therapy Plan Auth (Routine) - Closed Specialty Diagnoses / Procedures Referred By Contac t Referred To Contact Diagnoses Prostate cancer Cancer, metastatic to bone Procedures NV LEUPROLIDE ACETATE SUSPNSION Kailyn Cat MD [address] [place] [address] [facility] [address] [place] [address] Referral ID Status Reason Start Date Expiration Date Visits Re quested Visits Authorized [id number] Closed 12/12/2020 12/24/2022 99 99 Encounter Details Date Type Department Care Team (Late st Contact Info) Description 10/01/2022 10:03 AM TOP EDGE BEVELER - 10/01/2022 11:59 PM [facility] Hospital Encounter [facility] Infusion Services [facility] [address] [place] [address] Kailyn Blood MD [address] [place] [address] [facility], Injection Room Infusion Discharge Disposition: [...] Coronavirus/COVID-19? No / Unsure 10/01/2022 10:01 AM TOP EDGE BEVELER documented as of this encounter Last Filed Vital Signs Vital Sign Reading Time Taken Comments Blood Pressure 129/58 10/01/2022 10:16 AM TOP EDGE BEVELER Pulse 61 10/01/2022 10:16 AM TOP EDGE BEVELER Temperature 36 ??C (96.8 ??F) 10/01/2022 10:16 AM TOP EDGE BEVELER Respiratory Rate 16 10/01/2022 10:16 AM TOP EDGE BEVELER Oxygen Saturation - - Inhaled Oxygen Concentration [...] 08/06/2022 12/24/2022 documented as of this encounter Progress Notes * Kailee Reinoso RN - 10/01/2022 11:00 AM CST Pt admitted to infusion center for Eligard injection. Pt/family demonstrates understanding of medication and possible side effects. Tolerated injection without problem. Instructed pt to notify physician or go to ED if there are any changes in their condition. Verbalized understanding. Discharged home. EDGE BEVELER documented in this encounter Plan of Treatment Upcoming Encounters Date Type Department Care Team (Late st Contact Info) Description 12/13/2024 9:45 AM TOP EDGE BEVELER Office Visit [facility] Oncology and Hematology [facility] [address] [facility] [address] [place] [address] Glenn Al MD [address] [facility] [address] [place] [address] documented as of this encounter [...] subCUT, ONE TIME ONLY, 1 dose, On Thu10/01/22 at 1100, Routine Given 10/01/2022 10:27 AM TOP EDGE BEVELER 22.5 mg Abdomen, Left Lower Quadrant documented in this encounter Care Teams Vascular Specialists Relationship Specialty Start Date End Date Anirudh Craft MD 3[address] [facility] 4 [place] [address] PCP - General Internal Medicine 08/01/20 09/19/24 documented as of this encounter
--- OUTSIDE RECORDS SUMMARY | 2024-10-30 02:48 | XMS_ITS | Encounter Summary ---
Author Organization [facility] Address [address] [place] [address] Care Team Providers Care Calibrator Barometers Name Role Phone Anirudh Craft MD Primary Care Provider [phone] Reason for Visit * Reason Onset Date Comments Abnormal Lab Results 01/06/2023 Encounter Details Date Type Department Care Team (Late st Contact Info) Description 01/06/2023 Telephone [facility] Oncology and Hematology [facility] [address] [address] [place] [address] [facility] [address] [place] [address] Abnormal Lab Results Social History Tobacco [...] Telephone Encounter - Brielle Ferguson RN - 01/06/2023 1:09 PM CST ----- Message from Joseph Ayala MD sent at 01/06/2023 8:09 AM TEAMCENTER CONSULTANT ----- Ok, maybe he can see GI as well? Since they address liver issues often. ----- Message ----- From: Brielle Ferguson RN Sent: 01/05/2023 4:52 PM TEAMCENTER CONSULTANT To: Joseph Ayala MD Pt came in for repeat labwork. Liver enzymes still elevated, pt has held Zytiga for past 2 weeks. AST 94(77) and ALT 125 (103). Pt has call to mountain guide also since he takes Crestor. CENTER CONSULTANT documented in this encounter Plan of Treatment Upcoming Encounters Date Type Department Care Team (Late st Contact Info) Description 12/13/2024 9:45 AM TEAMCENTER CONSULTANT Office Visit [facility] Oncology and Hematology [facility] [address] [place] [address] [address] [place] [phone] Glenn Al MD [address] [facility] [address] [place] [address] documented as of this encounter Visit Diagnoses Not on filedocumented in this encounter Care Teams Calibrator Barometers Relationship Specialty Start Date End Date Anirudh Craft MD 3[address] [facility] 4 [place] [phone] PCP - General Internal Medicine 08/01/20 09/19/24 documented as of this encounter
--- OUTSIDE RECORDS SUMMARY | 2024-10-30 02:48 | XMS_ITS | Encounter Summary ---
Author Organization [facility] Address [address] [place] [address] Care Team Providers Care Special Weapons Unit Officer Name Role Phone Anirudh Craft MD Primary Care Provider [phone] Encounter Details Date Type Department Care Team (Late Contact Info) Description 04/13/2023 Orders Only [facility] Oncology and Hematology [facility] [address] [place] [address] Glenn Al MD [address] [facility] [address] [place] [address] Cancer, metastatic to bone; Prostate cancer; [...] (Late Contact Info) Description 12/13/2024 9:45 AM AGRICULTURE MECHANIC Office Visit [facility] Oncology and Hematology [facility] [address] [place] [address] Glenn Al MD [address] [facility] [address] [place] [address] documented as of this encounter Visit Diagnoses Diagnosis Cancer, 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
--- OUTSIDE RECORDS SUMMARY | 2024-10-30 02:49 | XMS_ITS | Encounter Summary ---
Author Organization [facility] Address [address] [facility] Attn: Epic Prelude ADT ESTHER WILSON [address] Care Team Providers Care Freight Dispatcher Name Role Phone Anirudh Craft MD Primary Care Provider Encounter Details Date Type Department Care Team (Latest Contact Info) Description 06/28/2021 Travel Social History Tobacco Use Types Packs/Day [...] st Contact Info) Description 12/13/2024 9:45 AM REAMING PRESS OPERATOR Office Visit [facility] Oncology and Hematology - [place] [address] [facility] [address] [place] [address] Glenn Al MD [address] [facility] [address] [place] [address] documented as of this encounter Visit Diagnoses Not on filedocumented in this encounter Care Teams Freight Dispatcher Relationship Specialty Start Date End Date Anirudh Craft MD [address] [address] PCP - General Internal Medicine 08/01/20 09/19/24 documented as of this encounter
--- OUTSIDE RECORDS SUMMARY | 2024-10-30 02:49 | XMS_ITS | Encounter Summary ---
Author Organization [facility] Address [address] [place] [address] Care Team Providers Care Latrine Cleaner Name Role Phone Ilan Whitley DO Primary Care Provider Reason for Visit * Reason Comments Nurse Navigation Follow up Encounter Details Date Type Department Care Team (Late st Contact Info) Description 05/29/2020 Chart Note [facility] Oncology Patient Navigation [address] [place] [address] Giovanna Huerta, RN Nurse Navigation (Follow up) [...] of this encounter Progress Notes * Giovanna Huerta RN - 05/29/2020 8:27 AM CDT [facility] Services Note: Patient called reporting jaw pain. Patient stated that Dr Blood had askedpatient previously if patient had mouth/jaw pain, patient denied at the time not understanding the relevance of the question r/t xgeva. Patient educated on relevance of question. Patient stated he had jaw pain a few months ago , saw a dentist in [place], denies xrays at that time but dentist did not determine cause of pain. Patient stated pain went away but has since returned along one sideof lower jaw. Patient states he saw a dentist (he is researching contact information) where xrays and extensive exam were performed and he was sent to a specialist, neither finding the cause. Patient thinks he told dentist office he was receiving xgeva. Message forwarded to Dr Blood's office for further management. Giovanna Huerta RN, [facility] Oncology Nurse Navigator documented in this encounter Plan of Treatment Upcoming Encounters Date Type Department Care Team (Late st Contact Info) Description 12/13/2024 9:45 AM HOPPER FEEDER Office Visit [facility] Oncology and Hematology [facility] [address] [facility] [address] [place] [address] Glenn Al MD [address] [facility] [address] [place] [address] documented as of this encounter Visit Diagnoses Not on filedocumented in this encounter Care Teams Latrine Cleaner Relationship Specialty Start Date End Date Ilan Whitley DO [address] [place] [address] PCP - General 09/07/09 07/31/20 documented as of this encounter
--- OUTSIDE RECORDS SUMMARY | 2024-10-30 02:50 | XMS_ITS | Encounter Summary ---
Author Organization [facility] Address [address] [place] [address] Care Team Providers Care Ediphone Operator Name Role Phone GutierrezIlan DO Primary Care Provider Encounter Details Date Type Department Care Team (Late Contact Info) Description 01/11/2020 Orders Only [facility] ONCOLOGY AND HEMATOLOGY - [place] [address] [facility] [address] [place] [address] Kailyn Blood MD [address] [facility] [address] [place] [address] Social History Tobacco Use Types Packs/Day [...] st Contact Info) Description 12/13/2024 9:45 AM WIRE ROPE SALES REPRESENTATIVE Office Visit [facility] Oncology and Hematology - [place] [address] [facility] [address] [place] [address] Glenn Al MD [address] [facility] [address] [place] [address] documented as of this encounter Visit Diagnoses Not on filedocumented in this encounter Care Teams Ediphone Operator Relationship Specialty Start Date End Date Ilan Whitley DO [address] [place] [address] PCP - General 09/07/09 07/31/20 documented as of this encounter
--- OUTSIDE RECORDS SUMMARY | 2024-10-30 02:51 | XMS_ITS | Encounter Summary ---
Author Organization [facility] Address [address] [place] [address] Care Team Providers Care Proof Machine Operator Name Role Phone Ilan Lawler DO Primary Care Provider Reason for Visit * Reason Onset Date Comments Results 09/30/2010 lab results Encounter Details Date Type Department Care Team (Late st Contact Info) Description 09/30/[address] [facility] Internal Medicine [facility] [address] [address] [facility] [address] [place] [address] Ilan Lawler DO [address] [facility] [address] [place] [address] Results (lab results) Social History [...] * Telephone Encounter - Bandar Rosales - 09/30/2010 8:27 AM CST Pt aware/az DING RENTAL SUPERINTENDENT * Telephone Encounter - Bandar Rosales - 09/30/2010 8:26 AM CST Message copied by BANDAR ROSALES on ThuSep 30, 2010 8:26 AM ------ Message from: ILAN LAWLER Created: Shanda Sep 29, 2010 5:10 PM psa is nl DING RENTAL SUPERINTENDENT documented in this encounter Plan of Treatment Upcoming Encounters Date Type Department Care Team (Late st Contact Info) Description 12/13/2024 9:45 AM BUILDING RENTAL SUPERINTENDENT Office Visit [facility] Oncology and Hematology - [place] [address] [facility] [address] [place] [address] Glenn Al MD [address] [facility] [address] [place] [address] documented as of this encounter Visit Diagnoses Not on filedocumented in this encounter Care Teams Proof Machine Operator Relationship Specialty Start Date End Date Ilan Lawler DO [address] [place] [phone] PCP - General 09/07/09 07/31/20 documented as of this encounter
--- OUTSIDE RECORDS SUMMARY | 2024-10-30 02:51 | XMS_ITS | Encounter Summary ---
Author Organization [facility] Address [address] [place] [address] Care Team Providers Care Keyboard Specialist Name Role Phone Ilan Whitley DO Primary Care Provider Reason for Visit * Reason Onset Date Comments Anxiety 05/26/2012 Encounter Details Date Type Department Care Team (Late st Contact Info) Description 05/26/2012 Telephone [facility] Internal Medicine [place] [address] [address] Ilan Whitley DO [address] [facility] [address] [place] [address] Anxiety Social History Tobacco Use Types Packs/Day Years [...] * Telephone Encounter - Pat Higgins - 05/26/2012 2:39 PM CDT Pt notified.ker * Telephone Encounter - Ilan Whitley DO - 05/26/2012 1:51 PM CDT Ativan 0.5 Bid prn Num 45 1 rf * Telephone Encounter - Pat Higgins - 05/26/2012 1:50 PM CDT Pt states he has a rough month ahead of him - would like a prescription of ativan to help him get through panic attacks. documented in this encounter Plan of Treatment Upcoming Encounters Date Type Department Care Team (Late st Contact Info) Description 12/13/2024 9:45 AM PACKAGING ENGINEER Office Visit [facility] Oncology and Hematology - [place] 2[address] [facility] [address] [place] [address] Glenn Al MD 2[address] [facility] 100 [place] [address] documented as of this encounter Visit Diagnoses Not on filedocumented in this encounter Care Teams Keyboard Specialist Relationship Specialty Start Date End Date Ilan Whitley DO [address] [place] [address] PCP - General 09/07/09 07/31/20 documented as of this encounter
--- OUTSIDE RECORDS SUMMARY | 2024-10-30 02:51 | XMS_ITS | Encounter Summary ---
Author Organization [facility] Address [address] [place] [address] Care Team Providers Care Supervisor Forming And Tempering Name Role Phone Ilan Whitley DO Primary Care Provider Reason for Visit * Reason Comments Hypertension Encounter Details Date Type Department Care Team (Late st Contact Info) Description 03/21/2011 11:45 AM CDT Office Visit [facility] Internal Medicine [place] [address] [place] [address] Ilan Whitley, [address] [facility] [address] [place] [address] HTN (hypertension) (Primary Dx) Social [...] Sign Reading Time Taken Comments Blood Pressure 150/82 03/21/2011 11:33 AM CDT Pulse - - Temperature - - Respiratory Rate - - Oxygen Saturation - - Inhaled Oxygen Concentration - - Weight 84.4 kg (186 lb) 03/21/2011 11:33 AM CDT Height 167.6 cm (5' 6 ) 03/21/2011 11:33 AM CDT Body Mass Index 30.02 03/21/2011 11:33 AM CDT documented in this encounter Progress Notes * Gutierrez Ilan Sousa, DO - 03/21/2011 11:44 AM CDT HISTORY OF PRESENT ILLNESS Ilan Mccauley, a 70 y.o. male. HPI Hypertension Hypertension-related review: no chest pain on exertion, no dyspnea on exertion, no edema, home BP monitoring in range of 170 90 's systolic over 90's diastolic, no chest pain on exertion, no intermittent claudication symptoms, no orthopnea or paroxysmal nocturnal dyspnea, no orthostatic dizziness or lightheadedness, notes fatigue. Went to er And had elev BP. Was placed on lisinopril 5 mg Now herefor fu Patient Active Problem List Diagnoses Code ??? [...] to encounter Medication Sig Dispense Refill ??? vardenafil (LEVITRA) 20 mg Oral tablet Take 1 Tab by mouth 1 time daily as needed. 15 Tab 3 ??? finasteride (PROSCAR) 5 mg Oral Tab Take 5 mg by mouth daily. Caution: When administering finasteride, women should not handle crushed or bro ??? Vardenafil (LEVITRA) 20 mg Oral Tab [...] Smoking status: Never Smoker ??? Smokeless tobacco: Not on file ??? Alcohol Use: No No results found for this basename: CREAT, CREATPOC, BUN, BUNPOC, NA, K, KPOC, CL, CO2, CREATCLEAR,[id number], GFR No results found for this basename: WBC, MANUALWBC, HGB, HGBPOC, HCT, HCTPOC, PLT, MCV, IRON, TIBC,FERRITIN No results found for this basename: TSH, TSHULTRA, THYROIDSTIM, T3, T3FREE, P8YIHEZX, T4, T4FREE, TPO, THROIDAB, THYROIDMI No results found for this basename: INR:3, PT:3, PROTIMEPOC:3 REVIEW OF SYSTEMS Review of Systems Constitutional: Negative for fever, chills and malaise/fatigue. HENT: Negative for ear pain, congestion, sore throat and ear discharge. Eyes: Positive for blurred vision. Respiratory: Negative for cough and shortness of breath. Cardiovascular: Negative for chest pain, palpitations, orthopnea, claudication, leg swelling and PND. Gastrointestinal: Negative for nausea, vomiting, abdominal pain and diarrhea. Genitourinary: Negative for dysuria, frequency and hematuria. Neurological: Positive for headaches. PHYSICAL EXAM BP 150/82 Ht 5' 6 (1.676 m) Wt 186 lb (84.369 kg) BMI 30.02 kg/m2 Physical Exam Constitutional: He appears well-developed and well-nourished. HENT: Head: Normocephalic and atraumatic. Neck: No thyromegaly present. Cardiovascular: Normal rate, regular rhythm and normal heart sounds. Pulmonary/Chest: Effort normal and breath sounds normal. Abdominal: Soft. No tenderness. Musculoskeletal: He exhibits no edema. Lymphadenopathy: He has no cervical adenopathy. ASSESSMENT and PLAN: Encounter Diagnoses 1. HTN (hypertension) (401.9AF) lisinopril (PRINIVIL) 20 mg Oral tablet, EKG 12-LEAD willl begin lisinopril 20 mg qd And fu in 6 - 8 weeks for CPE documented in this encounter Plan of Treatment Upcoming Encounters Date Type Department Care Team (Late st Contact Info) Description 12/13/2024 9:45 AM OUTDOOR LANDSCAPE ARCHITECT Office Visit [facility] Oncology and Hematology [facility] [address] [place] [address] Glenn Al MD [address] [facility] [address] [place] [address] documented as of this encounter Procedures Procedure Name Priority Date/Time Associated Diagnosis Comments EKG 12-LEAD Routine 03/21/2011 HTN (hypertension) documented in this encounter Results * EKG 12-LEAD (03/21/2011) Ilan Whitley DO ECG ORDERABLES [facility] documented in this encounter Visit Diagnoses Diagnosis HTN (hypertension)- Primary Unspecified essential hypertension documented in this encounter Care Teams Supervisor Forming And Tempering Relationship Specialty Start Date End Date Ilan Whitley DO [address] [place] [address] PCP - General 09/07/09 07/31/20 documented as of this encounter
== END 2024-10-23 06:42 | disposition home or self-care (01) ==
PROVIDERS: Emergency Provider Emergency Medicine; PCP Internal Medicine Gastroenterology
DX: N13.2 Hydronephrosis with renal and ureteral calculous obstruction (principal); Z87.891 Personal history of nicotine dependence
CPT/HCPCS: 36415; 74177; 80053; 81001; 83690; 85025; 96361; 96374; 96375; 99284; A9270; J1171; J1885; J2405; J7030; Q9967

== ENCOUNTER 2024-12-09 12:54 | Outpatient (CLI) | payer MEDICARE, SELFPAY ==
--- NOTE | ~2024-12-09 | XR_ITS ---
EXAMINATION: XR wrist RT min 3V DATE: 12/09/2024 13:19 INDICATION: Unspecified fall, initial encounter. TECHNIQUE: 4 views of right wrist were obtained. COMPARISON: None. FINDINGS: Alignment is normal. No fracture. Joint spaces are normal. IMPRESSION: 1. Normal right wrist. Reviewed, dictated and finalized at location A. MAKER IMPRESSION: 1. Normal right wrist.
--- NOTE | ~2024-12-09 | US_ITS ---
EXAMINATION: US carotid duplex BI DATE: 12/09/2024 13:46 INDICATION: Other specified symptoms and signs involving the circulatory system TECHNIQUE: Grayscale, color Doppler, and pulsed Doppler images of the cervical carotid arteries were obtained. The degree of vessel stenosis is placed in one of the following categories: normal, <50%, 5 0-69%, >=70% but less than near-occlusion, near-occlusion, or total occlusion. Note that percent sten osis relative to normal distal artery lumen diameter is indirectly measured from velocity measurement s as described by Rainer, et al. Radiology 2003; 229:340-346. COMPARISON: None. FINDINGS: RIGHT: The right common carotid artery (CCA) peak systolic velocity (PSV) is 94 cm/s. The right internal car otid artery (ICA) PSV is 81 cm/s. The right ICA end-diastolic velocity (EDV) is 23 cm/s. The right IC A/CCA PSV ratio is 0.9. Grayscale and color Doppler images yield an estimate of <50% diameter reducti on from plaque in the ICA. The external carotid artery (ECA) PSV is 63 cm/s. There is antegrade flow in the right vertebral artery. LEFT: The left CCA PSV is 82 cm/s. The left ICA PSV is 96 cm/s. The left ICA EDV is 26 cm/s. The left ICA/C CA PSV ratio is 1.2. Grayscale and color Doppler images yield an estimate of <50% diameter reduction from plaque in the ICA. The ECA PSV is 64 cm/s. There is antegrade flow in the left vertebral artery. IMPRESSION: 1. <50% stenosis in the right internal carotid artery. 2. <50% stenosis in the left internal carotid artery. Reviewed, dictated and finalized at location B. ERGARTNERS HELPER
--- OUTSIDE RECORDS SUMMARY | 2024-12-09 12:54 | XMS_ITS | Referral Summary ---
Author Organization [facility] Address [address] [place] [address] Care Team Providers Care Insurance Follow Up Specialist Name Role Phone Unavailable Primary Care Provider Unavailabl e Source Comments [facility],non-owned Affiliates and Associated Physician Practices is amultiple site organization consisting of ambulatory clinics and hospital sitesin [place], [place], [place] and [place]. This disclosure is being madepursuant to the Care Everywhere program and may not contain all information available regarding this patient. Last updated 18.[facility] Allergies Active Allergy Reactions Criticality Noted Date [...] on file Ilan Mccauley Personal/Family Self [address] [facility] [place] [address]
--- OUTSIDE RECORDS SUMMARY | 2024-12-09 12:54 | XMS_ITS ---
Author Organization [facility] dicine Address [address] [place] [address] Care Team Providers Care Contact Officer Name Role Phone Unavailable Primary Care Provider Unavailabl e Active Problems Patient Care Coordination No te Formatting of this note migh t be different from the original. Trever Mishra-[place] Former awv - 05/12, 05/13 Problem Noted Date [...] UTI (urinary tract infection) Essential hypertension Current Treatment and Therapy Plans No current plan information found. Past Treatment and Therapy Plans ONCOLOGY THERAPY PLAN Plan Name Start Date Discontinue Date Treatment Medications Discontinue Reason Plan Provider OP ONC LEUPROLIDE (ELIGARD) 22.5 MG SUBCUTANEOUS EVERY 3 MONTHS 12/26/2020 01/24/2024 leuprolide acetate (ELIGARD) Other Joseph Ayala MD OP ONC LEUPROLIDE (ELIGARD) 22.5 MG SUBCUTANEOUS EVERY 3 MONTHS & OP ONC DENOSUMAB (XGEVA) FOR BONE METASTASIS 12/21/2019 10/29/2020 leuprolide acetate (ELIGARD) Not Tolerated Kailyn Blood MD Lifetime Dose Tracking * Chemical Lifetime Dose [...]
--- OUTSIDE RECORDS SUMMARY | 2024-12-09 12:54 | XMS_ITS | Encounter Summary ---
Author Organization [facility] Address [address] [place] [address] Care Team Providers Care Fence Gate Assembler Name Role Phone Anirudh Craft MD Primary Care Provider Reason for Visit * Reason Onset Date Comments Medication Refill 03/10/2011 Encounter Details Date Type Department Care Team (Late st Contact Info) Description 03/10/2011 Refill Central Business Office [address] [place] [address] Mychart, Generic Provider Social History Tobacco Use Types Packs/Day Years Used Date Smoking Tobacco: Never Alcohol Use Standard Drinks/Week Comments No 0 (1 standard drink = 0.6 oz pur e alcohol) Sex and Gender Information Value Date Recorded Sex Assigned at Not on file Legal Sex Male 4:40 AM PRINT MACHINE OPERATOR Gender Identity Not on file Sexual Orientation Not on file documented as of this encounter Plan of Treatment Upcoming Encounters Date Type Department Care Team (Late st Contact Info) Description 12/13/2024 9:45 AM PRINT MACHINE OPERATOR Office Visit [facility] Oncology and Hematology - [place] [facility] [address] [place] [address] Glenn Al MD [address] [facility] [address] [place] [address] documented as of this encounter Visit Diagnoses Not on filedocumented in this encounter Care Teams Fence Gate Assembler Relationship Specialty Start Date End Date Anirudh Craft MD [address] [facility] [address] [place] [address] PCP - General Internal Medicine 08/01/20 09/19/24 documented as of this encounter
--- OUTSIDE RECORDS SUMMARY | 2024-12-09 12:54 | XMS_ITS | Clinical Summary ---
Author Organization [facility] dicine Address [address] [place] [address] Care Team Providers Care Emt Paramedic Name Role Phone Unavailable Primary Care Provider Unavailabl e Allergies Active Allergy Reactions Criticality Noted Date Comments Codeine Nausea and Vomiting High 09/07/2009 Makes patient extremely ill Nebivolol Bradycardia Medium 06/23/2011 Medications amLODIPine (NORVASC) 5 mg tablet Take 2.5 mg by mouth daily. Active rosuvastatin (CRESTOR) 20 mg tablet Take 10 mg by mouth daily at bedtime. 10MG NOW PER PT Active coenzyme Q10 100 mg Capsule Take 100 mg by mouth. Active Active Problems Patient Care Coordination No te Formatting of this note migh t be different from the original. Trever Mishra-Orthotic Finish Grinding Technician awv - 05/12, 05/13 Problem Noted Date [...] Encounters Date Type Department Care Team Description 11/24/2024 External Device Data STL ABSTRACTION Provider, Abstract 10/03/2024 Orders Only [facility] Oncology and Hematology - [place] [address] [place] [address] Glenn Al MD 09/22/2024 Orders Only [facility] Oncology and Hematology - [place] [address] [place] [address] Glenn Al MD 09/20/2024 9:30 AM BUTTON RECLAIMER Office Visit [facility] Oncology and Hematology - [place] [address] [place] [address] Glenn Al MD Cancer, metastatic to bone (CMS/HCC) (Primary Dx); Anemia, chronic disease; Other fatigue 09/19/2024 Orders Only [facility] Oncology and Hematology - [place] [address] [place] [phone] Glenn Al MD Cancer, metastatic to bone (CMS/HCC) from Last 3 Months Immunizations Immunization Administration Dates Next Due Influenza Seasonal Unspecifi [...] on file Legal Sex Male 4:40 AM BUTTON RECLAIMER Gender Identity Not on file Sexual Orientation Not on file Occupation Industry Job Start Date Job End Date Not on file Not on file Not on file Not on file Last Filed Vital Signs Vital Sign Reading Time Taken Comments Blood Pressure 132/62 09/20/2024 9:25 AM BUTTON RECLAIMER Pulse 55 09/20/2024 9:21 AM BUTTON RECLAIMER Temperature 36.7 C (98 F) 09/20/2024 9:21 AM BUTTON RECLAIMER Respiratory Rate 15 09/20/2024 9:21 AM BUTTON RECLAIMER Oxygen Saturation 96% 09/20/2024 9:21 AM BUTTON RECLAIMER Inhaled Oxygen Concentration - - Weight 73.6 kg (162 lb 3.2 oz) 09/20/2024 9:21 A M BUTTON RECLAIMER Height 165.1 cm (5' 5 ) 06/15/2023 8:25 AM CDT Body Mass Index 26.99 06/15/2023 8:25 AM CDT Plan of Treatment Upcoming Encounters Date Type Department Care Team (Late st Contact Info) Description 12/13/2024 9:45 AM BUTTON RECLAIMER Office Visit [facility] Oncology and Hematology - [place] [address] [facility] [address] [place] [address] Glenn Al MD [address] [facility] [address] [place] [address] Health Maintenance Due Date Last Done Comments PNEUMOCOCCAL VACCINE 65+ YEA RS (1 of 2 - PCV) 1959 ZOSTER VACCINE (1 of 2) 1959 RSV VACCINE (60+ or ) (1 - 1-dose 75+ series) 2015 DTAP/TDAP/TD VACCINES (2 - T d or Tdap) 05/13/2021 05/13/2011 COVID-19 Vaccine (2 - Modern a risk series) 03/03/2022 02/03/2022 INFLUENZA VACCINE (#1) 2024 4, 03/03/2023, 08/05/2021, Additional history exists [place] Preventative Visit/Annual Wellness Visit 11/02/2024 05/19/2012, 05/16/2011 COLORECTAL SCREENING Discontinued 09/05/2011, 09/05/2011, 11/02/2006 Colorectal Cancer Screening Discontinued FIT-DNA Q 3 years Discontinued FIT/FOBT Q 1 year Discontinued Flex Sig/CT Colonography Q 5 years Discontinued Procedures Procedure Name Priority Date/Time Associated Diagnosis Comments METHYLMALONIC ACID Routine 09/28/2024 2: 18 PM BUTTON RECLAIMER COMPREHENSIVE METABOLIC PANEL Routine 09/20/2024 3:12 PM BUTTON RECLAIMER BASIC METABOLIC PANEL Routine 09/20/2024 2:41 PM BUTTON RECLAIMER CBC WITH DIFFERENTIAL Routine 09/20/2024 2:04 PM BUTTON RECLAIMER ENDOSCOPY, COLON, DIAGNOSTIC Routine 09/05/2011 from Last 3 Months or Most Recently Relevant to Health Maintenance Results * METHYLMALONIC ACID (09/28/2024 2:18 PM BUTTON RECLAIMER) Blood us Glnen Al MD CHEMISTRY ORDERABLES Final Resu lt * COMPREHENSIVE METABOLIC PANEL (09/20/2024 3:12 PM BUTTON RECLAIMER) Blood us Glenn Al MD CHEMISTRY ORDERABLES Final Resu lt * BASIC METABOLIC PANEL (09/20/2024 2:41 PM BUTTON RECLAIMER) Blood us Glenn Al MD CHEMISTRY ORDERABLES Final Resu lt * CBC WITH DIFFERENTIAL (09/20/2024 2:04 PM BUTTON RECLAIMER) Blood us Glenn Al MD HEMATOLOGY ORDERABLES Final Res ult * ENDOSCOPY, COLON, DIAGNOSTIC (09/05/2011) us Abstract Provider GI PROCEDURE ORDERABLES Final Result [facility] from Last 3 Months or Most Recently Relevant to Health Maintenance Insurance [employer] Medicare Part D Advance Directives For more information, please contact: [phone] Documents on File Type Date Recorded Patient Turf Manager Expl anation Advance Directive Living Will 10/01/2022 [...]
--- OUTSIDE RECORDS SUMMARY | 2024-12-09 12:54 | XMS_ITS | Encounter Summary ---
Author Organization [facility] Health Address [address] [facility] [place] [address] Care Team Providers Care Jukebox Route Driver Name Role Phone Unavailable Primary Care Provider Unavailabl e Encounter Details Date Type Department Care Team (Late st Contact Info) Description 01/08/2022 Lab Requisition [facility] DermPath Lab [address] [facility], [place] [address] [place] [address] [address] Social History Tobacco Use Types Packs/Day Years [...] Comments DERMATOPATHOLOGY Routine 01/06/2022 12:0 0 AM TORCH STRAIGHTENER AND HEATER documented in this encounter Results * DERMATOPATHOLOGY (01/06/2022 12:00 AM TORCH STRAIGHTENER AND HEATER) Case Report Dermatopathology Report Case: [id number] Authorizing Provider: Ilan Loco MD Collected: 01/06/2022 12:00 AM Ordering Location: [facility] DermPath Lab Received: 01/08/2022 11:55 AM Pathologist: Lay Hinojosa MD Specimens: A) - Skin, left lateral cheek B) - Skin, left post auricular ear 4:03 PM [facility] DERMATOPATHOLOGY LABORATORY Final Diagnosis Specimen A. SKIN, left lateral cheek: SEBORRHEIC KERATOSIS, IRRITATED (L82.0) Specimen B. SKIN, left post auricular ear: SEBORRHEIC KERATOSIS, IRRITATED (L82.0) 2 4:03 PM [facility] DERMATOPATHOLOGY LABORATORY Clinical History A: R/O neoplasm of uncertain behavior of skin, inflamed seborrheic keratosis. B: R/O Neoplasm of uncertain behavio of skin, inflamed seborrheic keratosis, Basal cell carcinoma-primary, actinic keratosis, Emanuel's disease of skin 2 4:03 PM [facility] DERMATOPATHOLOGY LABORATORY Gross Description Specimen A: Received [...] 8x7x2 mm. Jar 0. 2 4:03 PM [facility] DERMATOPATHOLOGY LABORATORY Microscopic Description Specimen A. SKIN, left lateral cheek: There is acanthosis consisting of fairly uniform squamous cells with eosinophilic cytoplasm and squamous eddies. Specimen B. SKIN, left post auricular ear: There is acanthosis consisting of fairly uniform squamous cells with eosinophilic cytoplasm and squamous eddies. 2 4:03 PM [facility] DERMATOPATHOLOGY LABORATORY Disclaimer An external and internal positive and negative controls are appropriate for the histochemical, immunohistochemical and immunofluorescence stain(s) in this case (if any), except where stated explicitly. The performance characteristics of the stain(s) cited in this report were developed and its performance characteristic determined by the Dermatopathology Laboratory at [facility], directed by Dr. Donny Hinojosa. These tests need not be, and therefore are not, approved by the [place] Food and Drug Administration. The tests are used for clinical purposes. Billing Codes Specimen Charges Stain Charges 30615 38381 1 1 2 4:03 PM [facility] DERMATOPATHOLOGY LABORATORY Embedded Images 2 4:03 PM [facility] DERMATOPATHOLOGY LABORATORY Pathology/Cytology TISSUE SPECIMEN FROM SKIN / Unknown 01/06/2022 01/08/2022 11:55 AM TORCH STRAIGHTENER AND HEATER Miscellaneous samples (specimen) TISSUE SPECIMEN FROM SKIN / Unknown 01/06/2022 01/08/2022 11:55 AM TORCH STRAIGHTENER AND HEATER Ilan Loco MD LAB - PATHOLOGY/CY TOLOGY ORDERABLES DERMATOPATHOLOGY LABORATORY [facility] - Department of Dermatology [facility] [address] [place] [address], [address] [phone] documented in this encounter Visit Diagnoses Not on filedocumented in this encounter
--- OUTSIDE RECORDS SUMMARY | 2024-12-09 12:54 | XMS_ITS | Encounter Summary ---
[facility] Organization [facility] Address [address] [place] [address] Care Team Providers Care Car Construction Superintendent Name Role Phone Anirudh Craft MD Primary Care Provider Reason for Visit * Reason Onset Date Comments Medication Refill 03/19/2011 Encounter Details Date Type Department Care Team (Late st Contact Info) Description 03/19/2011 Refill Central Business Office [address] [place] [address] Mychart, Generic Provider Social History Tobacco Use Types Packs/Day Years Used Date Smoking Tobacco: Never Alcohol Use Standard Drinks/Week Comments No 0 (1 standard drink = 0.6 oz pur e alcohol) Sex and Gender Information Value Date Recorded Sex Assigned at Not on file Legal Sex Male 4:40 AM TV PRODUCTION ASSISTANT Gender Identity Not on file Sexual Orientation Not on file documented as of this encounter Miscellaneous Notes * Telephone Encounter - Debbie Crocker - 03/25/2011 10:49 AM CDT [place]- * Telephone Encounter - Debbie Crocker - 03/25/2011 10:37 AM CDTFrom: ILAN MCCAULEY Sent: ThuMarch 19, 2011 9:36 AM Subject: Medication Renewal Request Ilan Garrick would like a refill of the following medications: Preferred pharmacy: [facility] 5mg daily, 90 day supply Comment: Thought I requested this refill from [facility] but they show no record of it. Need 90 day refill home delivery, [address], [place] [address]Tkopma contact me if a problem with refill. Other - see comments for explanation documented in this encounter Plan of Treatment Upcoming Encounters Date Type Department Care Team (Late st Contact Info) Description 12/13/2024 9:45 AM TV PRODUCTION ASSISTANT Office Visit [facility] Oncology and Hematology [facility] [address] [facility] [address] [place] [address] Glenn Al MD [address] [facility] [address] [place] [address] documented as of this encounter Visit Diagnoses Not on filedocumented in this encounter Care Teams Car Construction Superintendent Relationship Specialty Start Date End Date Anirudh Craft MD [address] [facility] [address] [place] [address] PCP - General Internal Medicine 08/01/20 09/19/24 documented as of this encounter
--- OUTSIDE RECORDS SUMMARY | 2024-12-09 12:54 | XMS_ITS | Patient Health Summary ---
Author Organization [facility] Address [address] [place] [address] Care Team Providers Care Bomb Loader Name Role Phone Unavailable Primary Care Provider Unavailabl e Note from [facility][note 2],non-owned Affiliates and Associated Physician Practices is amultiple site organization consisting of ambulatory clinics and hospital sitesin [place], [place], [place] and [place]. 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) * CBC W/O DIFFERENTIAL(Performed 07/13/2020) Performed for 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 SKIN, left lateral cheek: SEBORRHEIC KERATOSIS, IRRITATED (L82.0) Specimen B. SKIN, left post auricular ear: SEBORRHEIC KERATOSIS, IRRITATED (L82.0) 2 4:03 PM [facility] DERMATOPATHOLOGY LABORATORY Clinical History A: R/O neoplasm of uncertain behavior of skin, inflamed seborrheic keratosis. B: R/O Neoplasm of uncertain behavio of skin, inflamed seborrheic keratosis, Basal cell carcinoma-primary, actinic keratosis, Emanuel's disease of skin 2 4:03 PM [facility] DERMATOPATHOLOGY LABORATORY Gross Description Specimen A: Received [...] 8x7x2 mm. Jar 0. 2 4:03 PM [facility] DERMATOPATHOLOGY LABORATORY Microscopic Description Specimen A. SKIN, left lateral cheek: There is acanthosis consisting of fairly uniform squamous cells with eosinophilic cytoplasm and squamous eddies. Specimen B. SKIN, left post auricular ear: There is acanthosis consisting of fairly uniform squamous cells with eosinophilic cytoplasm and squamous eddies. 2 4:03 PM [facility] DERMATOPATHOLOGY LABORATORY Disclaimer An external and internal positive and negative controls are appropriate for the histochemical, immunohistochemical and immunofluorescence stain(s) in this case (if any), except where stated explicitly. The performance characteristics of the stain(s) cited in this report were developed and its performance characteristic determined by the Dermatopathology Laboratory at [facility], directed by Dr. Donny Hinojosa. These tests need not be, and therefore are not, approved by the [place] Food and Drug Administration. The tests are used for clinical purposes. Billing Codes Specimen Charges Stain Charges 29336 [id number] 1 1 2 4:03 PM [facility] DERMATOPATHOLOGY LABORATORY Embedded Images 2 4:03 PM [facility] DERMATOPATHOLOGY LABORATORY Pathology/Cytology TISSUE SPECIMEN FROM SKIN / Unknown 01/06/2022 01/08/2022 11:55 AM BAND SALVAGER Miscellaneous samples (specimen) TISSUE SPECIMEN FROM SKIN / Unknown 01/06/2022 01/08/2022 11:55 AM BAND SALVAGER Ilan Loco MD LAB - PATHOLOGY/CY TOLOGY ORDERABLES Performing Organization Address [facility]/ZIP Co de Phone Number DERMATOPATHOLOGY LABORATORY [facility] Department of Dermatology [address], [address] [phone] * CARDIAC CATH (07/13/2020) Parag Lam MD CARDIAC SERVICES ORD ERABLES * CBC W/O DIFFERENTIAL (07/13/2020) Blood BLOOD SPECIMEN / Unknown Parag Lam MD LAB - HEMATOLOGY ORD MOHAN OTHER LAB * BASIC METABOLIC PANEL (BMP) (07/13/2020) Blood BLOOD SPECIMEN / Unknown Parag Lam MD LAB - CHEMISTRY JACKY MALCOLM Performing Organization Address City/[facility]/ZIP Co de Phone Number OTHER LAB * CT CHEST W CONTRAST (06/19/2020) Anatomical Region Laterality Modality Chest Other Jordon Barakat MD CT ORDERABLES * EKG 12-LEAD (06/13/2020 3:34 PM CDT) Narrative Myra Gee - 06/13/2020 3:34 PM CDT Victor M Ora 06/13/2020 3:35 PM See scan Procedure Note Ora Dow - 06/13/2020 3:34 PM CDT See scan Parag Lam MD ECG ORDERABLES * ECHOCARDIOGRAM STRESS (10/08/2017 1:13 PM BAND SALVAGER) Only the most recent of2 resultswithin the time period is included. Narrative Heike Chris RDMS - 10/08/2017 1:13 PM BAND SALVAGER Heike Chris RDMS 10/08/2017 1:13 PM See scan Parag Lam MD ECHO ORDERABLES * CAROTID DOPPLER (09/23/2017) Jordon Barakat MD GENERIC SURGICAL HISTORY * CARDIAC EVENT MONITOR (06/23/2011) Jordon Barakat MD CARDIAC SERVICES ORDERABLES
--- OUTSIDE RECORDS SUMMARY | 2024-12-09 12:54 | XMS_ITS | Clinical Summary ---
Author Organization [facility] Address [address] [place] [address] Care Team Providers Care Lead Mobile Developer Name Role Phone Unavailable Primary Care Provider Unavailabl e Source Comments [facility],non-owned Affiliates and Associated Physician Practices is amultiple site organization consisting of ambulatory clinics and hospital sitesin [place], [place], [place] and [place]. This disclosure is being madepursuant to the Care Everywhere program and may not contain all information available regarding this patient. Last updated 18.[facility] Allergies Active Allergy Reactions Criticality Noted Date [...] Comments DTAP/TDAP/TD VACCINES (1 - Tdap) 1959 PNEUMOCOCCAL VACCINE 50+ (1 of 1 - PCV) 1990 ZOSTER VACCINE (1 of 2) 1990 Respiratory Syncytial Virus (RSV) Vaccine Pt: or over 60 yrs (1 - 1-dose 75+ series) 2015 COVID-19 VACCINE ( - 2023- season) 2024 INFLUENZA VACCINE (#1) 2024 5, 06/27/2013, 07/18/2009, Additional history exists DEPRESSION SCREENING 11/02/2024 MEDICARE AWV CALENDAR YEAR 2024 HEPATITIS B VACCINE Aged Out No longe r eligible based on patient's age to complete this topic HIB VACCINE Aged Out No longer eligi ble based on patient's age to complete this topic HPV VACCINE Aged Out No longer eligi ble based on patient's age to complete this topic MENINGOCOCCAL (Group B) VACCINE Aged Out No longer eligible based on patient's age to complete this topic MENINGOCOCCAL VACCINE Aged Out No ammy taylor eligible based on patient's age to complete this topic
[2024-12-09 14:05] LABS: Hemoglobin A1C 5.6 % (<5.7)
[2024-12-09 14:19] LABS: Cholesterol 140 mg/dL (0-200); HDL Direct 74 mg/dL; Triglycerides 89 mg/dL (<150)
[2024-12-09 14:29] LABS: LDL Cholesterol Direct 48 mg/dL
== END 2024-12-09 12:55 | disposition home or self-care (01) ==
PROVIDERS: PCP Internal Medicine; Visit Provider Internal Medicine
DX: R09.89 Other specified symptoms and signs involving the circulatory and respiratory systems (principal); I65.23 Occlusion and stenosis of bilateral carotid arteries; E78.2 Mixed hyperlipidemia; W19.XXXA Unspecified fall, initial encounter; Z79.899 Other long term (current) drug therapy; Z13.1 Encounter for screening for diabetes mellitus
CPT/HCPCS: 36415; 73110; 80061; 83036; 93880

== ENCOUNTER 2025-03-27 10:45 | Emergency (ER) | payer MEDICARE, SELFPAY ==
--- NOTE | ~2025-03-27 | CT_ITS ---
History: Fall PROCEDURE: CT head without contrast. COMPARISON: None TECHNIQUE: Axial imaging of the head performed from the skull base to the vertex without IV contrast. Sagittal a nd coronal reformations obtained. DLP: 605 mGy-cm FINDINGS: The ventricles are enlarged. The dilatation of the ventricles is proportional to the degree of sulcal prominence, not uncommon in the senescent brain. Decreased attenuation is identified within the periventricular white matter, likely secondary to micr ovascular ischemic disease, in a patient of this age. There is no mass, mass effect or midline shift. There is no abnormal extra-axial fluid collection or intracranial hemorrhage. Visualized paranasal sinuses are clear. The mastoid air cells are well aerated. No acute displaced fractures within the overlying cranium. Impression: No acute intracranial hemorrhage or suspicious mass effect. Reviewed, dictated and finalized at location A. Impression: No acute intracranial hemorrhage or suspicious mass effect.
--- OUTSIDE RECORDS SUMMARY | 2025-03-27 10:47 | XMS_ITS | Encounter Summary ---
Author Organization [facility] Health Address [address] [facility] [place] [address] Care Team Providers Care Regional Liaison Name Role Phone Unavailable Primary Care Provider Unavailabl e Encounter Details Date Type Department Care Team (Late st Contact Info) Description 01/08/[address] [facility] DermPath Lab [address] [facility] [place] [address] [place] [address] [address] Social History Tobacco Use Types Packs/Day Years Used Date Smoking Tobacco: Former Cigarettes Q uit: 11/02/1967 Smokeless Tobacco: Never Alcohol Use Standard Drinks/Week Comments No 0 (1 standard drink = 0.6 oz pur e alcohol) Sex and Gender Information Value Date Recorded Sex Assigned at Not on file Legal Sex Male 8:09 AM CDT Gender Identity Not on file Sexual Orientation Not on file documented as of this encounter Plan of Treatment Not on file documented as of this encounter Procedures Procedure Name Priority Date/Time Associated Diagnosis Comments DERMATOPATHOLOGY Routine 01/06/2022 12:0 0 AM STONE MILL OPERATOR documented in this encounter Results * DERMATOPATHOLOGY (01/06/2022 12:00 AM STONE MILL OPERATOR) Case Report Dermatopathology Report Case: [id number] Authorizing Provider: Ilan Loco MD Collected: 01/06/2022 12:00 AM Ordering Location: [facility] DermPath Lab Received: 01/08/2022 11:55 AM Pathologist: Lay Hinojosa MD Specimens: A) - Skin, left lateral cheek B) - Skin, left post auricular ear 2 4:03 PM [facility] DERMATOPATHOLOGY LABORATORY Final Diagnosis Specimen A. SKIN, left lateral cheek: SEBORRHEIC KERATOSIS, IRRITATED (L82.0) Specimen B. SKIN, left post auricular ear: SEBORRHEIC KERATOSIS, IRRITATED (L82.0) 2 4:03 PM [facility] DERMATOPATHOLOGY LABORATORY at [address] STONE MILL OPERATOR Clinical History A: R/O neoplasm of uncertain behavior of skin, inflamed seborrheic keratosis. B: R/O Neoplasm of uncertain behavio of skin, inflamed seborrheic keratosis, Basal cell carcinoma-primary, actinic keratosis, Emanuel's disease of skin 2 4:03 PM [facility] DERMATOPATHOLOGY LABORATORY Gross Description Specimen A: [...] 8x7x2 mm. Jar 0. 2 4:03 PM [facility] DERMATOPATHOLOGY LABORATORY Microscopic Description Specimen A. SKIN, left lateral cheek: There is acanthosis consisting of fairly uniform squamous cells with eosinophilic cytoplasm and squamous eddies. Specimen B. SKIN, left post auricular ear: There is acanthosis consisting of fairly uniform squamous cells with eosinophilic cytoplasm and squamous eddies. 2 4:03 PM [facility] DERMATOPATHOLOGY LABORATORY Disclaimer An external and internal positive and negative controls are appropriate for the histochemical, immunohistochemical and immunofluorescence stain(s) in this case (if any), except where stated explicitly. The performance characteristics of the stain(s) cited in this report were developed and its performance characteristic determined by the Dermatopathology Laboratory at [facility], directed by Dr. Donny Hinojosa. These tests need not be, and therefore are not, approved by the [place] Food and Drug Administration. The tests are used for clinical purposes. Billing Codes Specimen Charges Stain Charges 43150 40030 1 1 2 4:03 PM [facility] DERMATOPATHOLOGY LABORATORY Embedded Images 4:03 PM STONE MILL OPERATOR DERMATOPATHOLOGY LABORATORY Pathology/Cytology TISSUE SPECIMEN FROM SKIN / Unknown 01/06/2022 01/08/2022 11:55 AM STONE MILL OPERATOR Miscellaneous samples (specimen) TISSUE SPECIMEN FROM SKIN / Unknown 01/06/2022 01/08/2022 11:55 AM STONE MILL OPERATOR us Ilan Loco MD LAB - PATHOLOGY/CYTOLOGY O RDERABLES Final Result DERMATOPATHOLOGY LABORATORY [facility] - Department of Dermatology [facility] Medicine [address] [place] [address], [address] [phone] documented in this encounter Visit Diagnoses Not on filedocumented in this encounter
--- OUTSIDE RECORDS SUMMARY | 2025-03-27 10:47 | XMS_ITS | Clinical Summary ---
Author Organization [facility] dicine Address [address] [place] [address] Care Team Providers Care Torch Heater Name Role Phone Jose Antonio Soto MD Primary Care Provider + Allergies Active Allergy Reactions Criticality Noted Date [...] Capsule Take 100 mg by mouth. Active losartan-hydroC HLOROthiazide (HYZAAR) 100-12.5 mg tablet Take 1 Tablet by mouth daily. Active losartan (COZAAR) 100 mg tablet Take 1 Tablet by mouth daily. 5 03/20/20 25 Discontinue d(Alternate therapy prescribed) Active Problems Patient Care Coordination No te Formatting of this note migh t be different from the original. Trever Mishra-Bundle Wrapper awv - 05/12, 05/13 Problem Noted Date [...] Encounters Date Type Department Care Team Description 03/24/2025 External Device Data STL ABSTRACTION Provider, Abstract 03/21/2025 Orders Only [facility] Oncology and Hematology [facility] [address] [place] [address] Glenn Al MD 03/20/2025 2:30 PM CDT Office Visit [facility] Oncology and Hematology [facility] [address] [place] [address] Glenn Al MD Cancer, metastatic to bone (CMS/HCC) (Primary Dx); Anemia, chronic disease 03/17/2025 Telephone [facility] Oncology and Hematology - [place] [address] [place] [phone] Glenn Al MD Labs needed for appt. 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 Gender Identity Not on file Sexual Orientation Not on file Occupation Industry Job Start Date Job End Date Not on file Not on file Not on file Not on file Last Filed Vital Signs Vital Sign Reading Time Taken Comments Blood Pressure 138/69 03/20/2025 2:40 PM CDT Pulse 69 03/20/2025 2:40 PM CDT Temperature 36.3 C (97.3 F) 03/20/2025 2:40 PM CDT Respiratory Rate 15 03/20/2025 2:40 PM CDT Oxygen Saturation 98% 03/20/2025 2:40 PM CDT Inhaled Oxygen Concentration - - Weight 77 kg (169 lb 12.8 oz) 03/20/2025 2:40 PM CDT Height 165.1 cm (5' 5) 06/15/2023 8:25 AM CDT Body Mass Index 28.26 06/15/2023 8:25 AM CDT Plan of Treatment Upcoming Encounters Date Type Department Care Team (Late st Contact Info) Description 06/12/2025 9:00 AM CDT Office Visit [facility] Oncology and Hematology - [place] [address] [place] [address] Glenn Al MD [address] [facility] [address] [place] [address] Health Maintenance Due Date Last Done Comments PNEUMOCOCCAL VACCINE 50+ YEA RS (1 of 2 - PCV) [...] Associated Diagnosis Comments CBC WITH DIFFERENTIAL Routine 03/17/2025 4:24 PM CDT COMPREHENSIVE METABOLIC PANEL Routine 03/17/2025 12:05 PM CDT ENDOSCOPY, COLON, DIAGNOSTIC Routine 09/05/2011 from Last 3 Months or Most Recently Relevant to Health Maintenance Results * CBC WITH DIFFERENTIAL (03/17/2025 4:24 PM CDT) Blood Glenn Al MD HEMATOLOGY ORDERABLES Final Res ult * COMPREHENSIVE METABOLIC PANEL (03/17/2025 12:05 PM CDT) Blood Glenn Al MD CHEMISTRY ORDERABLES Final Resu lt * ENDOSCOPY, COLON, DIAGNOSTIC (09/05/2011) us Abstract Provider GI PROCEDURE ORDERABLES Final Result [facility] from Last 3 Months or Most Recently Relevant to Health Maintenance Insurance [employer] Medicare Part D Advance Directives For more information, please contact: [phone] Documents on File Type Date Recorded Patient Home And Family Living Professor Expl anation Advance Directive Living Will 10/01/2022 [...] Comments 07/20/2012 8:00 AM 07/20/2012 8:49 AM Care Teams Torch Heater Relationship Specialty Start Date End Date Jose Antonio Soto MD [address] [place] [phone] PCP - General Internal Medicine 03/20/25
--- OUTSIDE RECORDS SUMMARY | 2025-03-27 10:47 | XMS_ITS ---
Author Organization [facility] dicine Address [address] [place], [place] [address] Care Team Providers Care Animal Science Professor Name Role Phone Jose Antonio Soto MD Primary Care Provider + Active Problems Patient Care Coordination No te Formatting of this note migh t be different from the original. Trever Mishra-Director Public Policy awv - 05/12, 05/13 Problem Noted Date [...]
[2025-03-27 10:48] VITALS: BP 147/55; PULSE 60; RESP 16; TEMP 36.6; O2SAT 100
--- OUTSIDE RECORDS SUMMARY | 2025-03-27 10:48 | XMS_ITS | Encounter Summary ---
Author Organization [facility] Address [address] [place] [address] Care Team Providers Care Regulatory Affairs Strategy Specialist Name Role Phone Jose Antonio Soto MD Primary Care Provider + Reason for Visit * Reason Onset Date Comments Medication Refill 03/10/2011 Encounter Details Date Type Department Care Team (Late st Contact Info) Description 03/10/2011 Refill Central Business Office [address] [place] [address] Mychart, Generic Provider Social History Tobacco Use Types Packs/Day Years Used Date Smoking Tobacco: Never Alcohol Use Standard Drinks/Week Comments No 0 (1 standard drink = 0.6 oz pur e alcohol) Sex and Gender Information Value Date Recorded Sex Assigned at Not on file 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 Gender Identity Not on file Sexual Orientation Not on file documented as of this encounter Plan of Treatment Upcoming Encounters Date Type Department Care Team (Late st Contact Info) Description 06/12/2025 9:00 AM CDT Office Visit [facility] Oncology and Hematology - [place] [address] [facility] [address] [place] [address] Glenn Al MD [address] [facility] [address] [place] [address] documented as of this encounter Visit Diagnoses Not on filedocumented in this encounter Care Teams Regulatory Affairs Strategy Specialist Relationship Specialty Start Date End Date Jose Antonio Soto MD [address] [place] [address] PCP - General Internal Medicine 03/20/25 documented as of this encounter
--- OUTSIDE RECORDS SUMMARY | 2025-03-27 10:48 | XMS_ITS | Clinical Summary ---
Author Organization [facility] Address [address] [place] [address] Care Team Providers Care Contracting Support Specialist Name Role Phone Unavailable Primary Care Provider Unavailabl e Source Comments [facility],non-owned Affiliates and Associated Physician Practices is amultiple site organization consisting of ambulatory clinics and hospital sitesin [place], [place] and [place]. This disclosure is being madepursuant to the Care Everywhere program and may not contain all information available regarding this patient. Last updated 18.[facility] Allergies Active Allergy Reactions Criticality Noted Date Comments Beta Adrenergic Blockers 09/29/2017 Fatigue and weakness Nebivolol Other Bradycardia Codeine Nausea and/or Vomiting Shellfish Allergy Medications * Be aware that medications may not be up to date on this document. Alwaysverify current medications with the patient. Coenzyme Q10 (COQ-10) 100 MG Take 100 mg by mouth Active vitamin D3 (CHOLECALCIFER OL) 25 MCG (1000 UNITS) tablet Take 1,000 Units by mouth once daily Active aspirin buffered (BUFFERIN LOW DOSE) 81 MG tablet Take 81 mg by mouth once daily Active Leuprolide Acetate (LUPRON IJ) Quarterly Active rosuvastatin (CRESTOR) 10 MG tablet Take 10 mg by mouth once daily Active calcium citrate-vitami n D 200-250 MG-UNIT tablet Take 1 tablet by mouth once daily Active denosumab (XGEVA) 120 MG/1.7ML injection Inject 120 mg subcutaneously Every 7 weeks Active ranolazine ER 12hr (RANEXA) 500 MG tablet Take 1 tablet by mouth every 12 hours 180 tablet 3 0 Active amLODIPine (NORVASC) 5 MG tablet Take 1 tablet by mouth once daily 30 tablet 5 12/03/202 0 Active Active Problems Problem Noted Date Diagnosed [...] 1:43 PM CDT Height 175.3 cm (5' 9) 07/19/2020 1:43 PM CDT Body Mass Index 22.74 07/19/2020 1:43 PM CDT Plan of Treatment Health Maintenance Due Date Last Done Comments DTAP/TDAP/TD VACCINES (1 - Tdap) 1959 PNEUMOCOCCAL VACCINE 50+ (1 of 1 - PCV) 1990 ZOSTER VACCINE (1 of 2) 1990 Respiratory Syncytial Virus (RSV) Vaccine Pt: or over 60 yrs (1 - 1-dose 75+ series) 2015 COVID-19 VACCINE ( - season) 2024 DEPRESSION SCREENING 11/02/2024 MEDICARE AWV CALENDAR YEAR 2024 INFLUENZA VACCINE (Season Ended) 2025 07/03/2015, 06/27/2013, 07/18/2009, Additional history exists HEPATITIS B VACCINE Aged Out No longe r eligible based on patient's age to complete this topic HIB VACCINE Aged Out No longer eligi ble based on patient's age to complete this topic HPV VACCINE Aged Out No longer eligi ble based on patient's age to complete this topic MENINGOCOCCAL (Group B) VACCINE SHARED DECISION-MAKING Aged Out No longer eligible based on patient's age to complete this topic MENINGOCOCCAL GROUPS A/C/Y/W VACCINE Aged Out No longer eligible based on patient's age to complete this topic Insurance [facility] MANAGED MEDICARE ADV [facility] [place] [address]
--- OUTSIDE RECORDS SUMMARY | 2025-03-27 10:48 | XMS_ITS | Encounter Summary ---
Author Organization [facility] Address [address] [place] [address] Care Team Providers Care Lump Maker Name Role Phone Jose Antonio Soto MD Primary Care Provider + Reason for Visit * Reason Onset Date Comments Medication Refill 03/19/2011 Encounter Details Date Type Department Care Team (Late st Contact Info) Description 03/19/2011 Refill Central Business Office [address] [place] [address] Mychart, Generic Provider Social History Tobacco Use Types Packs/Day Years Used Date Smoking Tobacco: Never Alcohol Use Standard Drinks/Week Comments No 0 (1 standard drink = 0.6 oz pur e alcohol) Sex and Gender Information Value Date Recorded Sex Assigned at Not on file 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 Other - see comments for explanation documented in this encounter Plan of Treatment Upcoming Encounters Date Type Department Care Team (Late st Contact Info) Description 06/12/2025 9:00 AM CDT Office Visit [facility] Oncology and Hematology - [place] [address] [facility] [address] [place] [address] Glenn Al MD [address] [facility] [address] [place] [address] documented as of this encounter Visit Diagnoses Not on filedocumented in this encounter Care Teams Lump Maker Relationship Specialty Start Date End Date Jose Antonio Soto MD [address] [facility] [place] [phone] PCP - General Internal Medicine 03/20/25 documented as of this encounter
[2025-03-27 11:15] VITALS: O2SAT 100
[2025-03-27 11:16] VITALS: BP 125/66; O2SAT 100
--- OUTSIDE RECORDS SUMMARY | 2025-03-27 11:43 | XMS_ITS | Encounter Summary ---
Author Organization [facility] Address [address] [place] [address] Care Team Providers Care Crew Mess Attendant Name Role Phone Jose Antonio Soto MD Primary Care Provider + Reason for Visit * Reason Onset Date Comments Medication Refill 03/19/2011 Encounter Details Date Type Department Care Team (Late st Contact Info) Description 03/19/2011 Refill Central Business Office [address] [place] [address] Mychart, Generic Provider Social History Tobacco Use Types Packs/Day Years Used Date Smoking Tobacco: Never Alcohol Use Standard Drinks/Week Comments No 0 (1 standard drink = 0.6 oz pur e alcohol) Sex and Gender Information Value Date Recorded Sex Assigned at Not on file 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 Other - see comments for explanation documented in this encounter Plan of Treatment Upcoming Encounters Date Type Department Care Team (Late st Contact Info) Description 06/12/2025 9:00 AM CDT Office Visit [facility] Oncology and Hematology - [place] [address] [facility] [address] [place] [address] Glenn Al MD [address] [facility] [address] [place] [address] documented as of this encounter Visit Diagnoses Not on filedocumented in this encounter Care Teams Crew Mess Attendant Relationship Specialty Start Date End Date Jose Antonio Soto MD [address] [facility] [place] [place] [address] PCP - General Internal Medicine 03/20/25 documented as of this encounter
--- OUTSIDE RECORDS SUMMARY | 2025-03-27 11:43 | XMS_ITS | Encounter Summary ---
Author Organization [facility] Address [address] [place] [address] Care Team Providers Care First Responder Name Role Phone Jose Antonio Soto MD Primary Care Provider + Reason for Visit * Reason Onset Date Comments Medication Refill 03/10/2011 Encounter Details Date Type Department Care Team (Late st Contact Info) Description 03/10/2011 Refill Central Business Office [address] [place] [address] Mychart, Generic Provider Social History Tobacco Use Types Packs/Day Years Used Date Smoking Tobacco: Never Alcohol Use Standard Drinks/Week Comments No 0 (1 standard drink = 0.6 oz pur e alcohol) Sex and Gender Information Value Date Recorded Sex Assigned at Not on file 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 Gender Identity Not on file Sexual Orientation Not on file documented as of this encounter Plan of Treatment Upcoming Encounters Date Type Department Care Team (Late st Contact Info) Description 06/12/2025 9:00 AM CDT Office Visit [facility] Oncology and Hematology - [place] [address] [facility] [address] [place] [address] Glenn Al MD [address] [facility] [address] [place] [address] documented as of this encounter Visit Diagnoses Not on filedocumented in this encounter Care Teams First Responder Relationship Specialty Start Date End Date Jose Antonio Soto MD [address] [place] [address] PCP - General Internal Medicine 03/20/25 documented as of this encounter
--- OUTSIDE RECORDS SUMMARY | 2025-03-27 11:43 | XMS_ITS ---
Author Organization [facility] Address [address] [place], [place] [address] Care Team Providers Care Automatic Grinder Operator Name Role Phone Jose Antonio Soto MD Primary Care Provider + Active Problems Patient Care Coordination No te Formatting of this note migh t be different from the original. Trever Mishra-Aviation Electronic Warfare Operator awv - 05/12, 05/13 Problem Noted Date [...]
--- OUTSIDE RECORDS SUMMARY | 2025-03-27 11:43 | XMS_ITS | Encounter Summary ---
Author Organization [facility] Health Address [address] [place] [address] Care Team Providers Care Prototyper Name Role Phone Unavailable Primary Care Provider Unavailabl e Encounter Details Date Type Department Care Team (Late st Contact Info) Description 01/08/2022 Lab Requisition [facility] DermPath Lab [address] [facility], [place] [address] [place] [address] [address] Social History Tobacco Use Types Packs/Day Years [...] Comments DERMATOPATHOLOGY Routine 01/06/2022 12:0 0 AM LOCKSTITCH SLEEVE MAKER documented in this encounter Results * DERMATOPATHOLOGY (01/06/2022 12:00 AM LOCKSTITCH SLEEVE MAKER) Case Report Dermatopathology Report Case: [id number] Authorizing Provider: Ilan Loco MD Collected: 01/06/2022 12:00 AM Ordering Location: [facility] DermPath Lab Received: 01/08/2022 11:55 AM Pathologist: Lay Hinojosa MD Specimens: A) - Skin, left lateral cheek B) - Skin, left post auricular ear 2 4:03 PM [facility] DERMATOPATHOLOGY LABORATORY Final Diagnosis Specimen A. SKIN, left lateral cheek: SEBORRHEIC KERATOSIS, IRRITATED (L82.0) Specimen B. SKIN, left post auricular ear: SEBORRHEIC KERATOSIS, IRRITATED (L82.0) 2 4:03 PM [facility] DERMATOPATHOLOGY LABORATORY at [address] LOCKSTITCH SLEEVE MAKER Clinical History A: R/O neoplasm of uncertain behavior of skin, inflamed seborrheic keratosis. B: R/O Neoplasm of uncertain behavio of skin, inflamed seborrheic keratosis, Basal cell carcinoma-primary, actinic keratosis, Emanuel's disease of skin 2 4:03 PM [facility] DERMATOPATHOLOGY LABORATORY Gross Description Specimen A: Received [...] 8x7x2 mm. Jar 0. 2 4:03 PM [facility] DERMATOPATHOLOGY LABORATORY Microscopic Description Specimen A. SKIN, left lateral cheek: There is acanthosis consisting of fairly uniform squamous cells with eosinophilic cytoplasm and squamous eddies. Specimen B. SKIN, left post auricular ear: There is acanthosis consisting of fairly uniform squamous cells with eosinophilic cytoplasm and squamous eddies. 2 4:03 PM [facility] DERMATOPATHOLOGY LABORATORY Disclaimer An external and internal positive and negative controls are appropriate for the histochemical, immunohistochemical and immunofluorescence stain(s) in this case (if any), except where stated explicitly. The performance characteristics of the stain(s) cited in this report were developed and its performance characteristic determined by the Dermatopathology Laboratory at [facility], directed by Dr. Donny Hinojosa. These tests need not be, and therefore are not, approved by the [place] Food and Drug Administration. The tests are used for clinical purposes. Billing Codes Specimen Charges Stain Charges 78031 65379 1 1 2 4:03 PM [facility] DERMATOPATHOLOGY LABORATORY Embedded Images 4:03 PM LOCKSTITCH SLEEVE MAKER DERMATOPATHOLOGY LABORATORY Pathology/Cytology TISSUE SPECIMEN FROM SKIN / Unknown 01/06/2022 01/08/2022 11:55 AM LOCKSTITCH SLEEVE MAKER Miscellaneous samples (specimen) TISSUE SPECIMEN FROM SKIN / Unknown 01/06/2022 01/08/2022 11:55 AM LOCKSTITCH SLEEVE MAKER us Ilan Loco MD LAB - PATHOLOGY/CYTOLOGY O RDERABLES Final Result DERMATOPATHOLOGY LABORATORY [facility] - Department of Dermatology [facility] Medicine [address] [place] [address], [address] [phone] documented in this encounter Visit Diagnoses Not on filedocumented in this encounter
--- OUTSIDE RECORDS SUMMARY | 2025-03-27 11:43 | XMS_ITS | Clinical Summary ---
Author Organization [facility] dicine Address [address] [place] [place] [address] Care Team Providers Care Prosecuting Attorney Name Role Phone Jose Antonio Soto MD [...] t be different from the original. Trever Mishra-Can Sorter awv - 05/12, 05/13 Problem Noted Date [...] STL ABSTRACTION Provider, Abstract 03/21/2025 Orders Only [facility] Oncology and Hematology [facility] [address] [place] [address] Glenn Al MD 03/20/2025 2:30 PM CDT Office Visit [facility] Oncology and Hematology [facility] [address] [place] [address] Glenn Al MD Cancer, metastatic to bone (CMS/HCC) (Primary Dx); Anemia, chronic disease 03/17/2025 Telephone [facility] Oncology and Hematology - Josep [address] [place] [phone] Glenn Al MD Labs needed for appt. 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[employer] Gender Identity Not on file Sexual Orientation [...] Description 06/12/2025 9:00 AM CDT Office Visit [facility] Oncology and Hematology - Josep [address] [place] [address] Glenn Al MD [address] [facility] [address] [place] [address] Health Maintenance Due Date Last [...] Advance Directives For more information, please contact: [phone] Documents on File Type Date Recorded Patient Aircraft [employer] an[employer] Advance Directive Living Will 10/01/2022 [...] 8:00 AM 07/20/2012 8:49 AM Care Teams Prosecuting Attorney Relationship Specialty Start Date End Date Jose Antonio Soto MD [address] [place] [id number] PCP - General Internal Medicine 03/20/25
--- OUTSIDE RECORDS SUMMARY | 2025-03-27 11:43 | XMS_ITS | Clinical Summary ---
Author Organization [facility] Address [address] [place] [address] Care Team Providers Care Assistant Professor Of Biochemistry Name Role Phone Unavailable Primary Care Provider Unavailabl e Source Comments [facility],non-owned Affiliates and Associated Physician Practices is amultiple site organization consisting of ambulatory clinics and hospital sitesin [place], [place], [place] and [place]. This disclosure is being madepursuant to the Care Everywhere program and may not contain all information available regarding this patient. Last updated 18.[facility] Allergies Active Allergy Reactions Criticality Noted Date [...] patient's age to complete this topic Insurance [facility] MANAGED MEDICARE ADV [facility] MANAGED MEDICARE ADV
[2025-03-27 12:25] VITALS: O2SAT 100
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
[2025-03-27 12:31] VITALS: BP 120/58; PULSE 78; RESP 16; O2SAT 98
== END 2025-03-27 13:01 | disposition home or self-care (01) ==
PROVIDERS: Emergency Provider Emergency Medicine; PCP Internal Medicine
DX: S09.90XA Unspecified injury of head, initial encounter (principal); S50.311A Abrasion of right elbow, initial encounter; I10 Essential (primary) hypertension; E78.5 Hyperlipidemia, unspecified; K44.9 Diaphragmatic hernia without obstruction or gangrene; Z87.891 Personal history of nicotine dependence; Z79.899 Other long term (current) drug therapy; W18.39XA Other fall on same level, initial encounter
CPT/HCPCS: 70450; 99284